=== PATIENT | female | born 1970 | race Caucasian/White ===

== ENCOUNTER 2023-09-28 20:42 | Outpatient (REF) | payer OTHER, SELFPAY ==
[2023-10-02 17:10] LABS: Age Gdln ACOG Testing Note (.); HPV Aptima Negative (Negative); IGP, Aptima HPV, rfx 16/18,45 Note (.)
== END 2023-09-28 20:43 | disposition home or self-care (01) ==
LOC: LAB 20:42
PROVIDERS: PCP Physician Assistant; Visit Provider Physician Assistant
DX: Z01.419 Encounter for gynecological examination (general) (routine) without abnormal findings (principal)
CPT/HCPCS: 88175

== ENCOUNTER 2023-10-01 14:28 | Outpatient (OUT) | payer OTHER, SELFPAY ==
--- NOTE | 2023-10-01 14:30 | MM_ITS ---
Patient Name: CHASITY STEVENSON MR#: [id number] : 1970 Exam Date: 10/01/2023 Ordering Doctor: KELVIN Berger . RADIOLOGY REPORT PROCEDURE: MM TOMOSYNTHESIS SCREENING BI COMPARISON: MG MAMM SCREEN JENNIFER W CAD, 04/13/2018. INDICATIONS: Screening Calculator Name NCI Breast Cancer Risk Assessment Tool 5 Year Breast Cancer Risk 1.20% Lifetime Breast Cancer Risk 9.60% Personal Breast Cancer No Personal Ovarian Cancer No Treatments None Family Cancers None LOCATION: [facility] BREAST COMPOSITION: There are scattered areas of fibroglandular density. FINDINGS: DIAGNOSTIC CATEGORY 0--INCOMPLETE: NEED ADDITIONAL IMAGING EVALUATION. RIGHT BREAST: 2 adjacent 5 mm slightly spiculated nodules within anterior lower-outer quadrant. Spot magnification views and ultrasound evaluation recommended. LEFT BREAST: No significant suspicious finding. Scattered benign-appearing calcifications are present. No significant change has occurred. RECOMMENDATIONS: ADDITIONAL MAMMOGRAPHIC VIEWS REQUIRED: RIGHT BREAST - RIGHT CRANIOCAUDAL SPOT MAGNIFICATION VIEW - RIGHT OBLIQUE SPOT MAGNIFICATION VIEW - ULTRASOUND: RIGHT BREAST PLEASE NOTE: A NORMAL MAMMOGRAM DOES NOT EXCLUDE THE POSSIBILITY OF BREAST CANCER. A CLINICALLY SUSPICIOUS PALPABLE LUMP SHOULD BE BIOPSIED. Dictated by: Jose Angel Saldana M.D. on 10/01/2023 at 16:15 Approved by: Jose Angel Saldana M.D. on 10/01/2023 at 16:19
--- OUTSIDE RECORDS SUMMARY | 2023-10-01 14:35 | XMS_ITS | CCD ---
Author Organization [facility] Care Team Providers Care Renal Dialysis Rn Name Role Phone Shaina Arellano Unavailable ANTONIO, DR REYNA Consulting Unavailable ANTONIO, DR REYNA Primary Care Unavailable MISC, DR PEREZ Attending Unavailable MISC, DR PEREZ Admitting Unavailable OROPEZAALEXANDRA ARCHER Consulting Unavailable ANTONIO, DR REYNA Primary Care Unavailable CYNTHIA, DR MO Hoffman Attending Unavailable PELLETIER, DR MO Hoffman Admitting Unavailable CYNTHIA, DR MO Hofmfan Consulting Unavailable ANTONIO, DR REYNA Primary Care Unavailable CYNTHIA, DR MO Hoffman Attending Unavailable CYNTHIA, DR MO Hoffman Admitting Unavailable OROPEZAALEXANDRA Consulting Unavailable PELLETIER, DR MO Hoffman Consulting Unavailable ANTONIO, DR REYNA Primary Care Unavailable PELLETIER, DR MO Hoffman Attending Unavailable PELLETIER, DR MO Hoffman Admitting Unavailable OROPEZAALEXANDRA Consulting Unavailable ANTONIO, DR REYNA Primary Care Unavailable CYNTHIA, DR MO Hoffman Attending Unavailable PELLETIER, DR MO Hoffman Admitting Unavailable OROPEZAALEXANDRA Consulting Unavailable ANTONIO, DR REYNA Primary Care Unavailable PELLETIER, DR MO Hoffman Attending Unavailable PELLETIER, DR MO Hoffman Admitting Unavailable ANTONIO, DR REYNA Primary Care Unavailable CYNTHIA, DR MO Hoffman Attending Unavailable PELLETIER, DR MO Hoffman Admitting Unavailable MISC, DR PEREZ Consulting Unavailable ANTONIO, DR REYNA Primary Care Unavailable MISC, DR PEREZ Attending Unavailable MISC, DR PEREZ Admitting Unavailable ANTONIO, DR REYNA Consulting Unavailable ANTONIO, DR REYNA Primary Care Unavailable ANTONIO, DR REYNA Attending Unavailable ANTONIO, DR REYNA Admitting Unavailable ZIEBER, DR PATTI Sheikh Consulting Unavailable MISC, DR PEREZ Consulting Unavailable ANTONIO, DR REYNA Primary Care Unavailable MISC, DR PEREZ Attending Unavailable MISC, DR PEREZ Admitting Unavailable MONET MULLINS Attending Unavailable LEO ORTEGA Attending Unavailable CHARLY FARIAS Referring Unavailable JARRETT, CHARLY Attending Unavailable SHENDGE, VITHAL Referring Unavailable ARIANNA ANDERSON Referring Unavailable SHENDGE, VITHAL Referring Unavailable SHENDGE, VITHAL Referring Unavailable MONET MULLINS Referring Unavailable SHENDGE, VITHAL Referring Unavailable SHENDGE, VITHAL Referring Unavailable SHENDGE, VITHAL Referring Unavailable SHENDGE, VITHAL Referring Unavailable MONET MULLINS Attending Unavailable SHENMANDYE, DEREKHAL Attending Unavailable SHENMANDYE, DEREKHAL Attending Unavailable SHENDGE, VITHAL Admitting Unavailable Lois Che Attending Unavailable MD Maribell Alvarez Primary Care Provider [phone] MD Moncho Chao Jr Emergency Provider MD Moncho Johnson Attending Provider Maribell Alvarez Primary Care Unavailable Moncho Chao Jr Admitting Unavailable Moncho Chao Jr Attending Unavailable Moncho Johnson Admitting Unavailable Moncho Johnson Attending Unavailable Maribell Alvarez Primary Care Unavailable MARIBELL ALVAREZ Attending Unavailable DAJA PENA Attending Unavailable Allergies Allergy Classification Reported Allergen(s) Allergy Type Date of Onset Reaction(s) Facility (1 source) ADHESIVE TAPE-SILICONES; Translations: [ADHESIVE TAPE-SILICONES] Propensity to adverse reactions to drug (disorder) 2 [facility] Medications Current Medications Medication Drug Class(es) Dates Sig (Normalized) Sig (Original) acetaminophen 500 mg oral tablet (4 sources) Start: 08-08-2020 take 500 mg by mouth every four hours Acetaminophen Active 500 MG PO Q4H 100 August 08, 2020 12:00am acetaminophen 325 mg / HYDROcodone bitartrate 5 mg oral tablet (20 sources) Opioid Agonist Start: 09-08-2023 take 1 tablet by mouth twice daily Hydrocodone-Acetami nophen Active 1 TAB PO Twice daily 10 September 08, 2023 ten Start: 08-31-2023 End: 08-31-2023 take 1 tablet by mouth twice daily Hydrocodone-Acetaminophen Discontinued 1 TAB PO Twice daily 10 August 31, 2023 August 31, 2023 1:12pm ten Start: 08-31-2023 End: 09-08-2023 take 1 tablet by mouth twice daily Hydrocodone-Acetaminophen Discontinued 1 TAB PO Twice daily 11 15August 31, 2023 September 08, 2023 11:35am ten Start: 08-31-2023 End: 09-08-2023 take 1 tablet by mouth twice daily Hydrocodone-Acetaminophen Discontinued 1 TAB PO Twice daily 10 7 August 31, 2023 September 08, 2023 11:35am ten Start: 08-27-2023 End: 09-08-2023 take 1 tablet by mouth every six hours Hydrocodone-Acetaminophen Discontinued 1 - 2 TAB PO Q6H 20 4 August 27, 2023 September 08, 2023 11:17am Start: 11-30-2020 take 1-2 tablets by mouth every four to six hours as needed for pain HYDROcodone-Acetaminophen 5-325 MG 1-2 tablet as needed for pain Orally every 4-6 hrs for 7 days Nov, Active Start: 08-03-2020 End: 08-27-2023 take 1 tablet by mouth every four hours Hydrocodone-Acetaminophen Discontinued 1 TAB PO Q4H 40 7 August 08, 2020 August 27, 2023 2:32am ascorbic acid 500 mg oral tablet (17 sources) Vitamin C Start: 08-03-2020 End: 08-09-2020 take 1 tablet by mouth once daily Ascorbic Acid (Vitamin C) (Vitamin C) 500 mg Tablet Active 500 MG PO Daily August 08, 2020 12:00am baclofen 10 mg oral tablet (3 sources) gamma-Aminobuty mally Acid-ergic Agonist Start: 08-31-2023 take 10 mg by mouth once daily Baclofen Active 10 MG PO Daily August 31, 2023 12:00am Calcium & Magnesium Carbonates (9 sources) Calcium & Magnesium Carbonates Active Calcium 600 + D 600-200 MG-UNIT (9 sources) Start: 09-05-2020 take 1 tablet by mouth three times daily Calcium 600 + D 600-200 MG-UNIT 1 tablet Orally TID for 30 day(s) Aug, Active Calcium Carbonate-Vitamin D3 (Oyster Shell Calcium-Vit D3) 500 mg(1,250mg) -200 unit Tablet (8 sources) Start: 08-08-2020 take 2 tablets by mouth once at mealtime Calcium Carbonate-Vitamin D3 (Oyster Shell Calcium-Vit D3) 500 mg(1,250mg) -200 unit Tablet Active 2 TAB PO 3x/Day with meals August 08, 2020 12:00am Start: 08-03-2020 End: 08-09-2020 take 1 tablet by mouth once at mealtime Calcium Carbonate-Vitamin D3 (Oyster Shell Calcium-Vit D3) 500 mg(1,250mg) -200 unit Tablet Discontinued 1 TAB PO 3x/Day with meals 0 August 03, 2020 12:00am August 09, 2020 10:01am docusate sodium 50 mg / sennosides, assisted 8.6 mg oral tablet (4 sources) Start: 08-27-2023 take 2 tablets by mouth once daily at bedtime Sennosides-Docusate Sodium (Senna Plus) 8.6-50 mg tablet Active 2 TAB PO Daily at bedtime August 27, 2023 12:00am ibuprofen 200 mg oral tablet (9 sources) Nonsteroidal Anti-inflammatory Drug take 1 tablet by mouth three times daily at mealtime as needed Advil 200 MG 1 tablet with food or milk as needed Orally Three times a day Active Multivital-M (9 sources) Multivital-M Ora lly Active Multivitamin preparation (3 sources) Start: 08-31-2023 take 1 tablet by mouth once daily Multivitamin Active 1 TAB PO Daily August 31, 2023 12:00am Turmeric extract (3 sources) Start: 08-31-2023 Turmeric Active MG PO August 31, 2023 12:00am Completed/Discontinued Medications Medication Drug Class(es) Dates Sig (Normalized) Sig (Original) cyclobenzaprine hydrochloride 5 mg oral tablet (12 sources) Muscle Relaxant Start: 08-03-2020 End: 08-31-2023 take 5 mg by mouth every eight hours Cyclobenzaprine Discontinued 5 MG PO Q8H 30 August 08, 2020 12:00am August 31, 2023 12:43pm Start: 01-17-2014 take 1 tablet by dylan th every eight hours Cyclobenzaprine HCl 10 MG 1 tablet Orally every 8 hours Jan, Active docusate sodium 100 mg oral capsule (8 sources) Start: 08-03-2020 End: 08-31-2023 take 1 capsule by mouth twice daily Docusate Sodium (Dok) 100 mg Capsule Discontinued 100 MG PO Twice daily August 08, 2020 12:00am August 31, 2023 12:43pm 0.3 ml enoxaparin sodium 100 mg/ml prefilled syringe (8 sources) Low Molecular Weight Heparin Start: 08-03-2020 End: 08-31-2023 Enoxaparin (Lovenox) 30 mg/0.3 mL Syringe Discontinued 30 MG SUBCUT Every 12 hours at 1000 & 2200 August 08, 2020 12:00am August 31, 2023 12:43pm ferrous sulfate 324 mg delayed release oral tablet (8 sources) Start: 08-03-2020 End: 08-31-2023 take 324 mg by mouth twice daily Ferrous Sulfate Discontinued 324 MG PO Twice daily August 08, 2020 12:00am August 31, 2023 12:43pm lidocaine 0.04 mg/mg medicated patch (8 sources) Antiarrhythmic, Amide Local Anesthetic Start: 08-03-2020 End: 08-31-2023 apply 1 dose topically once daily Lidocaine (Lidocaine Pain Relief) 4 % Adhesive Patch,Medicated Discontinued 1 PATCH TOPICAL Daily August 08, 2020 12:00am August 31, 2023 12:42pm melatonin 5 mg oral tablet (8 sources) Start: 08-03-2020 End: 08-31-2023 take 5 mg by mouth once daily at bedtime Melatonin Discontinued 5 MG PO Daily at bedtime August 08, 2020 12:00am August 31, 2023 12:42pm Sennosides (Senna Lax) 8.6 mg Tablet (8 sources) Start: 08-08-2020 End: 08-31-2023 take 2 tablets by mouth twice daily Sennosides (Senna Lax) 8.6 mg Tablet Discontinued 17.2 MG PO Twice daily August 08, 2020 12:00am August 31, 2023 12:44pm Start: 08-08-2020 take 2 tablets by mo [facility] twice daily Sennosides (Senna Lax) 8.6 mg Tablet Active 17.2 MG PO Twice daily August 08, 2020 12:00am Start: 08-03-2020 End: 08-09-2020 take 2 tablets by mouth twice daily Sennosides (Senna Lax) 8.6 mg Tablet Discontinued 2 TAB PO Twice daily August 03, 2020 12:00am August 09, 2020 10:01am Problems Active Problems Problem Classification Problem Date Documented Date Episodic/Chronic Acute posthemorrhagic anemia (8 sources) Anemia following acute postoperative blood loss; Translations: [Acute posthemorrhagic anemia] 01-21-2023 Episodic Administrative/social admission (4 sources) Other reduced mobility; Translations: [Impaired mobility and activities of daily living] 01-21-2023 Episodic E Codes: Fall (4 sources) Fall on same level from slipping, tripping or stumbling ; Translations: [Fall on same level from slipping, tripping and stumbling without subsequent striking against object, initial encounter] 08-27-2023 Episodic Fluid and electrolyte disorders (8 sources) Hyponatremia; Translations: [Hypo-osmolality and hyponatremia] 01-21-2023 Episodic Fracture of lower limb (20 sources) Closed fracture of femur, distal end; Translations: [Other fracture of lower end of right femur, subsequent encounter for closed fracture with delayed healing] Onset: 11-16-2020 Resolved: 11-30-2020 Episodic Osteoarthritis (9 sources) Unilateral primary osteoarthritis, left hip; Translations: [Polyosteoarthritis, unspecified] Onset: 10-29-2021 Chronic Other aftercare (2 sources) Encounter for other specified surgical aftercare; Translations: [Encounter for other specified surgical aftercare] Onset: 01-10-2022 Episodic Other connective tissue disease (2 sources) Presence of left artificial hip joint; Translations: [Presence of left artificial hip joint] Onset: 12-11-2021 Chronic Other connective tissue disease (4 sources) History of total knee arthroplasty; Translations: [Presence of unspecified artificial knee joint] 01-21-2023 Chronic Other connective tissue disease (4 sources) Pain in right foot; Translations: [PAIN IN RIGHT FOOT] Onset: 01-28-2022 Episodic Other connective tissue disease (4 sources) Pain in right lower limb; Translations: [Pain in right leg] 01-21-2023 Episodic Other connective tissue disease (3 sources) Tear of right rotator cuff; Translations: [Unspecified rotator cuff tear or rupture of right shoulder, not specified as traumatic] 08-31-2023 Episodic Other connective tissue disease (5 sources) Unspecified rotator cuff tear or rupture of right shoulder, not specified as traumatic; Translations: [Rotator cuff (capsule) sprain] 08-31-2023 Episodic Other injuries and conditions due to external causes (4 sources) History of fall; Translations: [History of falling] 01-21-2023 Episodic Other nervous system disorders (1 source) Chronic pain syndrome; Translations: [CHRONIC PAIN SYNDROME] Onset: 01-28-2022 Chronic Other nervous system disorders (2 sources) Other chronic pain; Translations: [Other chronic pain] Onset: 12-13-2021 Chronic Other nervous system disorders (4 sources) Postoperative pain ; Translations: [Other acute postprocedural pain] 01-21-2023 Episodic Other non-traumatic joint disorders (3 sources) Derangement of right shoulder joint; Translations: [Other specific joint derangements of right shoulder, not elsewhere classified] 08-31-2023 Chronic Other non-traumatic joint disorders (6 sources) Other specific joint derangements of right shoulder, not elsewhere classified; Translations: [Other specified disorders of joint, shoulder region] Onset: 09-08-2023 08-31-2023 Chronic Other non-traumatic joint disorders (4 sources) Pain in left hip; Translations: [PAIN IN LEFT HIP] Onset: 01-23-2022 Episodic Other non-traumatic joint disorders (1 source) Pain in left knee; Translations: [PAIN IN LEFT KNEE] Onset: 01-28-2022 Episodic Other non-traumatic joint disorders (5 sources) Pain in right shoulder; Translations: [Acute pain of right shoulder] Onset: 08-26-2023 08-27-2023 Episodic Other non-traumatic joint disorders (3 sources) Hip pain; Translations: [Pain in right hip] 08-31-2023 Episodic Other non-traumatic joint disorders (5 sources) Pain in right hip; Translations: [Pain in joint, pelvic region and thigh] 08-31-2023 Episodic Other nutritional; endocrine; and metabolic disorders (13 sources) Obesity; Translations: [Obesity, unspecified] 01-21-2023 Chronic Other nutritional; endocrine; and metabolic disorders (2 sources) Obesity, unspecified; Translations: [Obesity, unspecified classification, unspecified obesity type, unspecified whether serious comorbidity present E66.9] Onset: 11-16-2020 Resolved: 11-30-2020 Chronic Other screening for suspected conditions (not mental disorders or infectious disease) (4 sources) Protein level - finding; Translations: [Other specified abnormal findings of blood chemistry] 01-21-2023 Episodic Residual codes; unclassified (2 sources) Genetic susceptibility to other disease; Translations: [Genetic susceptibility to other disease] Onset: 01-14-2022 Episodic Residual codes; unclassified (4 sources) Patient encounter status; Translations: [Encounter for prophylactic measures, unspecified] 01-21-2023 Episodic Substance-related disorders (4 sources) Nicotine dependence; Translations: [Nicotine dependence, unspecified, uncomplicated] 01-21-2023 Chronic Superficial injury; contusion (12 sources) Contusion of right front wall of thorax, initial encounter; Translations: [Contusion of rib on right side] 08-27-2023 Episodic Unclassified (4 sources) CONTACT W/AND (SUSP) EXPOS COVID-19; Translations: [CONTACT W/AND (SUSP) EXPOS COVID-19] Onset: 11-06-2021 Unclassified (1 source) Low back pain, unspecified; Translations: [Low back pain, unspecified] Onset: 12-13-2021 Past or Other Problems Problem Classification Problem Date Documented Date Episodic/Chronic Abdominal pain (1 source) Unspecified abdominal pain; Translations: [UNSPECIFIED ABDOMINAL PAIN] Onset: 03-29-2021 Episodic Complication of device; implant or graft (2 sources) Other mechanical complication of other internal orthopedic devices, implants and grafts, initial encounter; Translations: [Failed orthopedic implant, initial encounter T84.498A] Onset: 11-16-2020 Resolved: 11-30-2020 Episodic Other connective tissue disease (1 source) Trochanteric bursitis, left hip; Translations: [TROCHANTERIC BURSITIS LEFT HIP] Onset: 07-04-2021 Episodic Other connective tissue disease (1 source) Pain in right leg; Translations: [PAIN IN RIGHT LEG] Onset: 03-29-2021 Episodic Other connective tissue disease (2 sources) Psoas tendinitis, left hip; Translations: [Psoas tendinitis, left hip] Onset: 12-11-2021 Episodic Other eye disorders (2 sources) Dry eye syndrome of bilateral lacrimal glands; Translations: [Dry eye syndrome of bilateral lacrimal glands] Onset: 12-13-2021 Episodic Other nervous system disorders (2 sources) Other acute postprocedural pain; Translations: [Other acute postprocedural pain] Onset: 11-27-2021 Episodic Other non-traumatic joint disorders (2 sources) Pain in unspecified hip; Translations: [Pain in unspecified hip] Onset: 12-06-2021 Episodic Residual codes; unclassified (2 sources) Tobacco use; Translations: [Nicotine abuse Z72.0] Onset: 11-16-2020 Resolved: 11-30-2020 Episodic Residual codes; unclassified (3 sources) Other specified postprocedural states; Translations: [Other specified postprocedural states Z98.890] Onset: 11-16-2020 Resolved: 11-30-2020 Episodic Residual codes; unclassified (2 sources) Encounter for prophylactic measures, unspecified; Translations: [Encounter for prophylactic measures, unspecified] Onset: 11-27-2021 Episodic Unclassified (1 source) CONTACT W/AND (SUSP) EXPOS COVID-19; Translations: [CONTACT W/AND (SUSP) EXPOS COVID-19] Onset: 11-04-2021 Unclassified (1 source) Low back pain, unspecified; Translations: [Low back pain, unspecified] Onset: 12-13-2021 Results Test Name Value Interpretation Reference Range Facility XR shoulder RT min 2V*on XR shoulder RT min 2V* [facility] [address] [place] [address] XRay Report Signed Patient: Keila Richardson MR#: [id number] 09 : 1970 Acct:[id number] Age/Sex: 53 / F ADM Date: 09/08/23 [place] [facility] [place] Type[place] [facility] Attending Dr: Moncho Johnson MD Copies to: Moncho Johnson MD Ordering Provider: Moncho Johnson MD Date of Service: 09/08/23 XR/XR shoulder RT min 2V*: M24.811 - Other specific joint derangements of right shou... 2 views right shoulder plain film HISTORY: Right shoulder pain. Worse with abduction. Fell. COMPARISON: None ACUTE FINDINGS: Suspected acute fracture of the proximal portion of the humeral neck. DEGENERATIVE CHANGE: Unremarkable SOFT TISSUE FINDINGS: Unremarkable JOINT EFFUSION: None POSTOP CHANGES: None BONY MINERALIZATION: Adequate XR/XR shoulder RT min 2V* IMPRESSION: Concern for fracture posterior portion of the humeral neck. Impression dictated by: Felix Petit M.D.09/08/2023 3:45 PM Dictation Location: [place] [address] Transcribed By: [facility] 09/08/23 1545 Dictated By: Felix Petit DO 09/08/23 1543 Signed By: 09/08/23 1545 Normal [facility] Activated partial thrombopla stin time (aPTT) in platelet poor plasma by coagulation aOrdered By: Moncho Chao on 08-27-2023 aPTT Coag (PPP) [Time] 31.1 s 25.1-36.5 [facility] Comment on above: A hematocrit value g reater than 55% may lead to inaccurate results in coagulation testing. Patients having hematocrit values >55% require a special collection tube for coagulation studies. Please contact the laboratory at [phone] for redraw instructions. Alanine aminotransferase [En zymatic activity/volume] in Serum or PlasmaOrdered By: Moncho Chao on 08-27-2023 ALT [Catalytic activity/Vol] 44 U/L Normal 7-52 [facility] Comment on above: Performed By: #### C BC, CMP, BNP, HS TROP, PT, PTT #### [facility] [address] [id number] [place] Albumin [Mass/volume] in Ser um or Plasma by Bromocresol green (BCG) dye binding methoOrdered By: Moncho Chao on 08-27-2023 Albumin BCG dye [Mass/Vol] 4.1 g/dL 3.5-5.7 [facility] Alkaline phosphatase [Enzyma tic activity/volume] in Serum or PlasmaOrdered By: Moncho Chao on 08-27-2023 ALP [Catalytic activity/Vol] 79 U/L Normal 34-104 [facility] Comment on above: Performed By: #### C BC, CMP, BNP, HS TROP, PT, PTT #### [facility] [address] [id number] [place] Aspartate aminotransferase [ Enzymatic activity/volume] in Serum or PlasmaOrdered By: Moncho Chao on 08-27-2023 AST [Catalytic activity/Vol] 57 U/L High 13-39 [facility] Comment on above: Performed By: #### C BC, CMP, BNP, HS TROP, PT, PTT #### [address] Automated basophil %Ordered By: Moncho Chao on 08-27-2023 Basophils/100 WBC (Bld) 0.5 % Normal . [facility] Comment on above: Performed By: #### C BC, CMP, BNP, HS TROP, PT, PTT #### [address] Automated basophil countOrde red By: Moncho Chao on 08-27-2023 Basophils (Bld) [#/Vol] 0.0 10*3/uL Normal 0.0-0.2 [facility] Comment on above: Result Comment: PERF ORMED BY: [place] [address] PATHOLOGIST LEATHER CRAFTSMAN ESTELITA CAZARES M.D. Performed By: #### C BC, CMP, BNP, HS TROP, PT, PTT #### [address] Automated blood monocyte cou ntOrdered By: Moncho Chao on 08-27-2023 Monocytes (Bld) [#/Vol] 0.2 10*3/uL Normal 0.0-0.8 [facility] Comment on above: Performed By: #### C BC, CMP, BNP, HS TROP, PT, PTT #### [address] Automated eosinophil %Ordere d By: Moncho Chao on 08-27-2023 Eosinophils/100 WBC (Bld) 0.1 % Normal . [facility] Comment on above: Performed By: #### C BC, CMP, BNP, HS TROP, PT, PTT #### [address] Automated eosinophil countOr dered By: Moncho Chao on 08-27-2023 Eosinophils (Bld) [#/Vol] 0.0 10*3/uL Normal 0.0-0.45 [facility] Comment on above: Performed By: #### C BC, CMP, BNP, HS TROP, PT, PTT #### [facility] [address] [place] [address] Automated monocyte %Ordered By: Moncho Chao on 08-27-2023 Monocytes/100 WBC (Bld) 1.8 % Normal . [facility] Comment on above: Performed By: #### C BC, CMP, BNP, HS TROP, PT, PTT #### [address] Automated neutrophil %Ordere d By: Moncho Chao on 08-27-2023 Neutrophils/100 WBC (Bld) 86.1 % Normal . [facility] Comment on above: Performed By: #### C BC, CMP, BNP, HS TROP, PT, PTT #### [address] BNP ser/plasOrdered By: Constantino Chao on 08-27-2023 Natriuretic peptide B (Bld) [Mass/Vol] 19.0 pg/mL Normal 5-100 [facility] Comment on above: Result Comment: PERF ORMED BY: [place] [address] PATHOLOGIST LEATHER CRAFTSMAN ESTELITA CAZARES M.D. Performed By: #### C BC, CMP, BNP, HS TROP, PT, PTT #### [address] Bilirubin.total [Mass/volume ] in Serum or PlasmaOrdered By: Moncho Chao on 08-27-2023 Bilirubin [Mass/Vol] 0.6 mg/dL Normal 0.3-1.0 [facility] Comment on above: Performed By: #### C BC, CMP, BNP, HS TROP, PT, PTT #### [address] chest wo monik 08-27-2023 CT chest wo [facility] [place] [address] CT Scan Report Signed Patient: Keila Richardson MR#: [id number] 09 : 1970 Acct:[id number] Age/Sex: 53 / F ADM Date: 08/26/23 Loc: ER Room: Type: [facility] ER Attending Dr: Copies to: Moncho Chao Jr, MD Ordering Provider: Moncho Chao Jr, MD Date of Service: 08/26/23 CT/CT cervical spine wo con: fall, neck pain ([id number]) CT/CT chest wo con: fall, R rib pain, unable to lift arm CT Cervical Spine withoutcontrast TECHNIQUE: Axial imaging with 2-D and 3-D reconstruction. The CT exam was performed using one or more the following dose reduction techniques: Automated exposure control, adjustment of the MA and/or Kv according to patient size, or use of the iterative reconstruction technique. COMPARISON: None HISTORY: Fell. Right shoulder and arm pain. Right thigh pain. Neck pain. POST SURGERY CHANGES: None BONY ALIGNMENT: Adequate BONY SPINAL CANAL: Patent central bony canal FRACTURE: None BONY LESIONS: None SOFT TISSUES: Unremarkable DEGENERATIVE CHANGES: Moderate to degeneration LUNG APICES: Unremarkable ADDITIONAL FINDINGS: CT/CT cervical spine wo con IMPRESSION: No acute process CT Chest without contrast TECHNIQUE: Axial imaging with 2-D reconstruction. The CT exam was performed using one or more the following dose reduction techniques: Automated exposure control, adjustment of the MA and/or Kv according to patient size, or use of the iterative reconstruction technique. History: As above COMPARISON: None THYROID: Unremarkable TRACHEA AND BRONCHI: Patent ESOPHAGUS: Small hiatal hernia HEART: Within normal limits PERICARDIAL EFFUSION: None CORONARY ARTERY CALCIFICATION: None MEDIASTINUM: No adenopathy. No pneumoperitoneum. No mediastinal hematoma. PULMONARY SHELBY: No hilar mass or adenopathy is seen. THORACIC AORTA Unremarkable LUNG NODULE None LUNGS: Lungs are clear PLEURAL EFFUSION: None PNEUMOTHORAX: No pneumothorax seen. CHEST WALL: No abnormality AXILLA:Unremarkable BONY STRUCTURES Intact UPPER ABDOMEN: Images of the upper abdomen are noncontributory. IMPRESSION: No acute findings Impression dictated by: Felix Petit M.D.08/27/2023 7:31 AM Dictation Location: [place] [address] Transcribed By: [facility] 08/27/23730 Dictated By: Felix Petit DO 08/27/23723 Signed By: 08/27/23730 Normal [facility] Calcium [Mass/volume] in Ser um or PlasmaOrdered By: Moncho Chao on 08-27-2023 Calcium [Mass/Vol] 9.6 mg/dL Normal 8.6-10.3 [facility] Comment on above: Performed By: #### C BC, CMP, BNP, HS TROP, PT, PTT #### [address] Carbon dioxide, total [Moles /volume] in Serum or PlasmaOrdered By: Moncho Chao on 08-27-2023 CO2 [Moles/Vol] 25.4 mmol/L Normal 21.0-31.0 [facility] Comment on above: Performed By: #### C BC, CMP, BNP, HS TROP, PT, PTT #### [address] Chloride [Moles/volume] in S main or PlasmaOrdered By: Moncho Chao on 08-27-2023 Chloride [Moles/Vol] 105 mmol/L Normal 98-107 [facility] Comment on above: Performed By: #### C BC, CMP, BNP, HS TROP, PT, PTT #### [address] Complete Blood Count Auto Di ffon 08-27-2023 Mean Corpuscular HGB Conc 33.9 g/dL Normal 32.0-35.0 [facility] Comment on above: Performed By: #### C BC, CMP, BNP, HS TROP, PT, PTT #### [address] Monocytes/100 WBC (Bld) 21.29 % High 0.00-20.00 [facility] Comment on above: Result Comment: For adults in ED, MDW > 20.0 may be associated with a higher risk of sepsis during the first 12 hrs of hospital admission Performed By: #### C BC, CMP, BNP, HS TROP, PT, PTT #### [address] NRBC% 0.0 /100{WBC} Normal 0-0.5 [facility] Comment on above: Performed By: #### C BC, CMP, BNP, HS TROP, PT, PTT #### [facility] [address] Comprehensive Metabolic Pane tripp 08-27-2023 Albumin [Mass/Vol] 4.1 g/dL Normal 3.5-5.7 [facility] Comment on above: Performed By: #### C BC, CMP, BNP, HS TROP, PT, PTT #### [address] Creatinine Clr Calc Pharmacy 126.85 Normal [facility] Comment on above: Result Comment: PERF ORMED BY: [place] [address] PATHOLOGIST LEATHER CRAFTSMAN ESTELITA CAZARES M.D. Performed By: #### C BC, CMP, BNP, HS TROP, PT, PTT #### [address] GFR/1.73 sq M.predicted MDRD (S/P/Bld) [Vol rate/Area] mL/min/{1.73_m2} Normal [facility] Comment on above: Performed By: #### C BC, CMP, BNP, HS TROP, PT, PTT #### [address] Creatinine [Mass/volume] in Serum or PlasmaOrdered By: Moncho Chao on 08-27-2023 Creatinine [Mass/Vol] 0.76 mg/dL Normal 0.60-1.20 [facility] Comment on above: Performed By: #### C BC, CMP, BNP, HS TROP, PT, PTT #### [address] Erythrocyte distribution wid th [Ratio] by Automated countOrdered By: Moncho Chao on 08-27-2023 Erythrocyte distribution width (RBC) [Ratio] 13.5 % Normal 11.9-15.3 [facility] Comment on above: Performed By: #### C BC, CMP, BNP, HS TROP, PT, PTT #### [address] Erythrocytes [#/volume] in B lood by Automated countOrdered By: Moncho Chao on 08-27-2023 RBC (Bld) [#/Vol] 4.75 10*6/uL Normal 3.60-5.00 [facility] Comment on above: Performed By: #### C BC, CMP, BNP, HS TROP, PT, PTT #### [facility] [address] Glucose [Mass/volume] in Ser um or PlasmaOrdered By: Moncho Chao on 08-27-2023 Glucose [Mass/Vol] 141 mg/dL High 70-100 [facility] Comment on above: ADA recommended refe rence rangeRandom Glucose Reference Range is dependent on time and content of last meal. Glucose of more than 200 mg/dL in a nonstressed, ambulatory subject supports the diagnosis of Diabetes Mellitus. Result Comment: [place] om Glucose Reference Range is dependent on time and content of last meal. Glucose of more than 200 mg/dL in a nonstressed, ambulatory subject supports the diagnosis of Diabetes Mellitus. ADA recommended reference range Performed By: #### C BC, CMP, BNP, HS TROP, PT, PTT #### [address] Hematocrit [Volume Fraction] of Blood by Automated countOrdered By: Moncho Chao on 08-27-2023 Hematocrit (Bld) [Volume fraction] 42.8 % Normal 34.0-46.4 [facility] Comment on above: Performed By: #### C BC, CMP, BNP, HS TROP, PT, PTT #### [address] Hemoglobin [Mass/volume] in BloodOrdered By: Moncho Chao on 08-27-2023 Hemoglobin (Bld) [Mass/Vol] 14.5 g/dL Normal 11.8-15.4 [facility] Comment on above: Performed By: #### C BC, CMP, BNP, HS TROP, PT, PTT #### [place] [address] [place] INR in Platelet poor plasma by Coagulation assayOrdered By: Moncho Chao on 08-27-2023 INR Coag (PPP) [Relative time] 1.0 {INR} Normal [facility] Comment on above: INR Therapeutic Rang e A) Pre- and Peroperative OAT started two weeks before surgery. NOT HIP SURGERY: 1.5 - 2.5 HIP SURGERY: 2 - 3B) Primary and secondary prevention of venous THROMBOSIS: 2 - 3C) Active venous thrombosis, pulmonary embolismand prevention of recurrent venous thrombosis: 2 - 3D) Prevention of arterial thromboembolismincluding patients with mechanical heart valves: 3 - 4.5 Result Comment: INR Therapeutic Range A) Pre- and Peroperative OAT started two weeks before surgery. NOT HIP SURGERY: 1.5 - 2.5 HIP SURGERY: 2 - 3 B) Primary and secondary prevention of venous THROMBOSIS: 2 - 3 C) Active venous thrombosis, pulmonary embolism and prevention of recurrent venous thrombosis: 2 - 3 D) Prevention of arterial thromboembolism including patients with mechanical heart valves: 3 - 4.5 Performed By: #### C BC, CMP, BNP, HS TROP, PT, PTT #### [address] Leukocytes [#/volume] correc alden for nucleated erythrocytes in Blood by Automated counOrdered By: Moncho Chao on 08-27-2023 WBC corrected for nucl RBC Auto (Bld) [#/Vol] 9.0 10*3/uL 3.8-11.6 [facility] Leukocytes [#/volume] in Blo od by Automated countOrdered By: Moncho Chao on 08-27-2023 WBC (Bld) [#/Vol] 9.0 10*3/uL Normal 3.8-11.6 [facility] Comment on above: Performed By: #### C BC, CMP, BNP, HS TROP, PT, PTT #### [place] [address] [place] Lymphocytes [#/volume] in Bl ood by Automated countOrdered By: Moncho Chao on 08-27-2023 Lymphocytes (Bld) [#/Vol] 1.0 10*3/uL Normal 1.00-4.8 [facility] Comment on above: Performed By: #### C BC, CMP, BNP, HS TROP, PT, PTT #### [place] [address] [place] Lymphocytes/100 leukocytes i n Blood by Automated countOrdered By: Moncho Chao on 08-27-2023 Lymphocytes/100 WBC (Bld) 11.5 % Normal . [facility] Comment on above: Performed By: #### C BC, CMP, BNP, HS TROP, PT, PTT #### [facility] [address] MCH [Entitic mass] by Automa alden countOrdered By: Moncho Chao on 08-27-2023 MCH (RBC) [Entitic mass] 30.6 pg Normal 24.7-34.3 [facility] Comment on above: Performed By: #### C BC, CMP, BNP, HS TROP, PT, PTT #### [address] MCHC Auto (RBC) [Mass/Vol]Or dered By: Moncho Chao on 08-27-2023 MCHC (RBC) [Mass/Vol] 33.9 g/dL 32.0-35.0 [facility] MCV [Entitic volume] by Auto mated countOrdered By: Moncho Chao on 08-27-2023 MCV (RBC) [Entitic vol] 90.2 fL Normal 80-100 [facility] Comment on above: Performed By: #### C BC, CMP, BNP, HS TROP, PT, PTT #### [address] Monocyte distribution width [Entitic volume] in Blood by AutomatedOrdered By: Moncho Chao on 08-27-2023 Monocyte distribution width Auto (Bld) [Entitic vol] 21.29 % High 0.00-20.00 [facility] Comment on above: For adults in ED, MD W > 20.0 may be associated with a higher risk of sepsis during the first 12 hrs of hospital admission Neutrophils [#/volume] in Bl ood by Automated countOrdered By: Moncho Chao on 08-27-2023 Neutrophils (Bld) [#/Vol] 7.7 10*3/uL Normal 1.8-7.7 [facility] Comment on above: Performed By: #### C BC, CMP, BNP, HS TROP, PT, PTT #### [address] No Panel InformationOrdered By: Moncho Chao on 08-27-2023 Estimated GFR (CKD-EPI) > 60.0 mL/Min [facility] Creatinine Clearance (Chem 126.85 [facility] Nucleated erythrocytes [Pres ence] in Blood by Automated countOrdered By: Moncho Chao on 08-27-2023 Nucleated RBC Auto Ql (Bld) 0.0 /100{WBC} 0-0.5 [facility] Partial Thromboplastin Timeo n 08-27-2023 aPTT Coag (Bld) [Time] 31.1 s Normal 25.1-36.5 [facility] Comment on above: Result Comment: A he matocrit value greater than 55% may lead to inaccurate results in coagulation testing. Patients having hematocrit values >55% require a special collection tube for coagulation studies. Please contact the laboratory at [phone] for redraw instructions. PERFORMED BY: [place] [address] PATHOLOGIST LEATHER CRAFTSMAN ESTELITA CAZARES M.D. Performed By: #### C BC, CMP, BNP, HS TROP, PT, PTT #### [address] Platelet mean volume [Entiti c volume] in Blood by Automated countOrdered By: Moncho Chao on 08-27-2023 Platelet mean volume (Bld) [Entitic vol] 7.3 fL Normal 6.3-10.7 [facility] Comment on above: Performed By: #### C BC, CMP, BNP, HS TROP, PT, PTT #### [facility] [address] [place] [address] [place] Platelets [#/volume] in Bloo d by Automated countOrdered By: Moncho Chao on 08-27-2023 Platelets (Bld) [#/Vol] 382 10*3/uL Normal 150-450 [facility] Comment on above: Performed By: #### C BC, CMP, BNP, HS TROP, PT, PTT #### [place] [address] [place] Potassium [Moles/volume] in Serum or PlasmaOrdered By: Moncho Chao on 08-27-2023 Potassium [Moles/Vol] 3.8 mmol/L Normal 3.5-5.1 [facility] Comment on above: Performed By: #### C BC, CMP, BNP, HS TROP, PT, PTT #### [address] Protein [Mass/volume] in Ser um or PlasmaOrdered By: Moncho Chao on 08-27-2023 Protein [Mass/Vol] 7.7 g/dL Normal 6.4-8.9 [facility] Comment on above: Performed By: #### C BC, CMP, BNP, HS TROP, PT, PTT #### [address] Prothrombin time (PT)Ordered By: Moncho Chao on 08-27-2023 PT Coag (PPP) [Time] 11.6 s Normal 9.0-12.9 [facility] Comment on above: A hematocrit value g reater than 55% may lead to inaccurate results in coagulation testing. Patients having hematocrit values >55% require a special collection tube for coagulation studies. Please contact the laboratory at [phone] for redraw instructions. Result Comment: A he matocrit value greater than 55% may lead to inaccurate results in coagulation testing. Patients having hematocrit values >55% require a special collection tube for coagulation studies. Please contact the laboratory at [phone] for redraw instructions. Performed By: #### C BC, CMP, BNP, HS TROP, PT, PTT #### [address] Serum globulin measurement b y calculation (mass/volume)Ordered By: Moncho Chao on 08-27-2023 Globulin (S) [Mass/Vol] 3.6 g/dL [facility] Comment on above: Performed By: #### C BC, CMP, BNP, HS TROP, PT, PTT #### [address] Serum or plasma albumin/glob ulin mass ratioOrdered By: Moncho Chao on 08-27-2023 Albumin/Globulin [Mass ratio] 1.1 {ratio} [facility] Comment on above: Performed By: #### C BC, CMP, BNP, HS TROP, PT, PTT #### [facility] [address] Serum or plasma anion gap de terminationOrdered By: Moncho Chao on 08-27-2023 Anion gap [Moles/Vol] 11.4 mmol/L Normal 6.0-15.0 [facility] Comment on above: Performed By: #### C BC, CMP, BNP, HS TROP, PT, PTT #### [facility] [address] Sodium [Moles/volume] in Ser um or PlasmaOrdered By: Moncho Chao on 08-27-2023 Sodium [Moles/Vol] 138 mmol/L Normal 136-145 [facility] Comment on above: Performed By: #### C BC, CMP, BNP, HS TROP, PT, PTT #### [address] Troponin I High Sensitivityo n 08-27-2023 Troponin I High Sensitivity 3.5 pg/mL Normal 0.0-15.0 [facility] Comment on above: Result Comment: PERF ORMED BY: [place] [address] PATHOLOGIST LEATHER CRAFTSMAN ESTELITA CAZARES M.D. Performed By: #### C BC, CMP, BNP, HS TROP, PT, PTT #### [address] Troponin I.cardiac [Mass/vol ume] in Serum or Plasma by Detection limit <= 0.01 ng/Ordered By: Moncho Chao on 08-27-2023 Troponin I.cardiac DL <= 0.01 ng/mL [Mass/Vol] 3.5 pg/mL 0.0-15.0 [facility] Urea nitrogen [Mass/volume] in Serum or PlasmaOrdered By: Moncho Chao on 08-27-2023 Urea nitrogen [Mass/Vol] 15 mg/dL Normal 7-25 [facility] Comment on above: Performed By: #### C BC, CMP, BNP, HS TROP, PT, PTT #### [address] [place] [address] [facility] XR femur RT 2V*on 08-27-2023 XR femur RT 2V* [facility] Main [address] [address] XRay Report Signed Patient: Keila Richardson MR#: [id number] 09 : 1970 Acct:[id number] Age/Sex: 53 / F ADM Date: 08/26/23 Loc: ER Room: Type: [facility] ER Attending Dr: Copies to: Moncho Chao Jr, MD Ordering Provider: Moncho Chao Jr, MD Date of Service: 08/26/23 XR/XR femur RT 2V*: Fall ([id number]) XR/XR humerus RT*: Fall ([id number]) XR/XR shoulder RT min 2V*: Fall ([id number]) XR/XR pelvis 1-2V: Fall 3 views right shoulder plain film HISTORY: Fell injuring right side. Right shoulder pain. Right arm pain. Right thigh pain. COMPARISON: None ACUTE FINDINGS: None DEGENERATIVE CHANGE: Mild SOFT TISSUE FINDINGS: Unremarkable JOINT EFFUSION: None POSTOP CHANGES: None BONY MINERALIZATION: Adequate XR/XR shoulder RT min 2V* IMPRESSION: No acute findings. Plain film right humerus Adequate bony alignment. No fracture. IMPRESSION: No acute findings. Single view pelvis Unremarkable partially visualized right hip fixation hardware. Unremarkable partially visualized left hip arthroplasty. No bony fracture. Adequate alignment. IMPRESSION: No acute findings. 2 views right femur Intact fixation hardware. The right knee arthroplasty unremarkable. Adequate bony alignment. No acute bony fracture. IMPRESSION: No acute bony fracture. Impression dictated by: Felix Petit M.D.08/27/2023 7:35 AM Dictation Location: [place] [address] Transcribed By: [facility] 08/27/23 0735 Dictated By: Felix Petit DO 08/27/23 0731 Signed By: 08/27/23 0735 Normal [facility] ECG 12 lead ECGon 08-26-2023 ECG 12 lead ECG [facility] Main [address] [address] Electrocardiograph Report Signed Patient: Keila Richardson MR#: [id number] 09 : 1970 Acct:[id number] Age/Sex: 53 / F ADM Date: 08/26/23 Loc: ER Room: Type: [facility] ER Attending Dr: Ordering Provider: Moncho Chao Jr, MD Date of Service: 08/26/23 ECG/ECG 12 lead ECG: Fall Copies to: Test Reason : Blood Pressure : */* mmHG Vent. Rate : 80 BPM Atrial Rate : 80 BPM P-R Int : 146 ms QRS Dur : 78 ms QT Int : 398 ms P-R-T Axes : 76 54 37 degrees QTcB Int : 459 ms Normal sinus rhythm Low voltage QRS Borderline ECG When compared with ECG of 28-Jul-2020 02:26, No significant change was found Confirmed by CHET ESPARZA MD ([id number]) on 08/29/2023 1:27:04 PM Referred By: Electronically Signed By: CHET ESPARZA MD Transcribed By: MUS Signed By Chet Esparza MD 0 08/29/23 1327 Normal [facility] Follow-Upon 03-14-2022 Follow-Up [id number] Sanjana iRchardson 1970 F Date Provider Department Center 03/14/2022 LEO MARSHALL [facility] OR[facility] MPORTHO No family history on file Level of Service:48615 HI OFFICE/OUTPATIENT ESTABLISHED LOW MDM 20-29 MIN (GC) Reason for Visit and Comments: Follow-up [577012] Normal [facility] Telemedicineon 01-14-2022 Telemedicine [id number] Sanjana Richardson 1970 F Date Provider Department Center [facility] He[facility] No family history on file Level of Service:91572 HI PHYS/QHP TELEPHONE EVALUATION 5-10 MIN Reason for Visit and Comments: Follow-up [630170] Normal [facility] Office Visiton 01-10-2022 Follow-up visit [id number] Sanjana Richardson 1970 F Date Provider Department Center 01/10/2022 Bhavik-CHARLY FARIAS MP ORTHO MPORTHO No family history on file Level of Service:31612 HI OFFICE/OUTPATIENT ESTABLISHED LOW MDM 20-29 MIN (GC) Reason for Visit and Comments: Pain [136] - Patient has had increased pain in right leg where her femur was repaired since her Left hip replacement 6 weeks ago. Normal [facility] 37on 12-13-2021 37 Please call the [facility] ic with any emergent concerns at [phone] ([facility] location) [employer] messages may take up to 3 business days for a response so please utilize telephone calls for more urgent concerns. Thank you #Joint hypermobility syndrome Joint hypermobility syndrome is when you have very flexible joints and it causes you pain (you may think of yourself as being double-jointed). It usually affects children and young people and often gets better as you get older. Non-urgent advice: See a PCP/family doctor if you: -Often get tired, even after rest -Keep getting pain and stiffness in your joints or muscles -Keep getting sprains and strains -Keep dislocating your joints (they pop out ) -Have poor balance or coordination -Have thin, stretchy skin -Have bladder or bowel problems These can be symptoms of joint hypermobility syndrome. What happens at your provider appointment: Your provider will usually test the flexibility of your joints using the [place] score. They may also refer you for a blood test or X-ray to help rule out any other conditions like arthritis. Testing hypermobility = [place] score Treating joint hypermobility syndrome: There's no cure for joint hypermobility syndrome. The main treatment is improving muscle strength and fitness so your joints are better protected. A GP may refer you to a physical therapist, occupational therapist or other specialist advice. Therapies can help to: -Reduce pain and the risk of dislocations -Improve muscle strength and fitness -Improve your posture and balance Treating joint pain -Acetaminophen and anti-inflammatory painkillers (like ibuprofen, which comes as tablets, gels and sprays) may help to ease pain. Please speak to your provider or pharmacist about the best option for you. If you're in severe pain, your provider may be able to refer you to a pain clinic to help you cope with pain. To help ease joint pain and stiffness, you can: -Have warm baths -Use hot water bottles -Use heat-rub cream If you have joint hypermobility syndrome, there are things you can do to improve joint and muscle strength and reduce strain. Do: -Start with low-impact exercise like swimming or cycling if you've not been active before (not doing any exercise can make your symptoms worse) -Maintain a healthy weight -Wear supportive shoes -Wear special insoles (orthotics) in your shoes if a hand filer balance wheel/specialist/occ upational therapist has recommended them Don???t: -Do not overextend your joints just because you can -Do not do repetitive exercises or activities - take regular breaks (called pacing) What causes joint hypermobility syndrome - Joint hypermobility syndrome can run in families and it cannot be prevented. - Usually, the joints are loose and stretchy because the ligaments that should make them stronger and support them are weak. - The weakness is because the collagen that strengthens the ligaments is different from other people's. Most experts agree that joint hypermobility syndrome is part of a spectrum of hypermobility disorders which includes Jen-Danlos syndrome. Some people with hypermobility spectrum disorders do not have symptoms. Another [facility] website to review is: [email or web address] ndrom e Normal [facility] Office Visiton 12-13-2021 Follow-up visit [id number] Sanjana Richardson 1970 F Date Provider Department Center 12/13/2021 MON[facility] ERA[facility] Carlos Heal No family history on file Level of Service:36144 HI OFFICE/OUTPATIENT NEW LOW [facility] 30-44 MINUTES Reason for Visit and Comments: New Patient [632] - Referral is in [place]. Patient request to be scheduled in December after recovery from her hip surgery in October. Normal [facility] SJOGRENS SYNDROME ANTIBODIES A AND Bon 12-13-2021 KIRSTIN TO SSA (RO) ANTIBODY Negative Normal Negative [facility] Comment on above: Performed By: #### L AB344 ####[facility] (BEAKER)[address] [place] [address] KIRSTIN TO SSB ([place]) ANTIBODY Negative Normal Negative [facility] Comment on above: Performed By: #### L AB344 ####[facility] (RAMIREZ)[address] [place] [address] Office Visiton 12-11-2021 Follow-up visit [id number] Sanjana Richardson 1970 F Date Provider Department Center 12/11/2021 Linnea-LEO ORTEGA MP ORTHO MPORTHO No family history on file Level of Service:31191 HI POSTOP FOLLOW UP VISIT RELATED TO ORIGINAL PX Reason for Visit and Comments: Post-op [483] - 1st PO [facility] 36on 12-09-2021 36 Per Doctor Giovanny Dunham; patient was told to go to ER. [facility] CONSULTon 12-07-2021 CONSULT Reason For Consult hip pain History Of Present Illness Keila Richardson is a 51 y.o. female Presenting to the emergency room with concerns of left hip and left knee pain. Patient had a recent MILES done by Dr. Ortega On 11/27/2021. Patient states that she started having left hip pain for the last day or 2 and endorsed worsening swelling to her thigh region. Patient states that her pain is in her groin. Patient states that today she is going to stand up from a chair and felt a pulling popping sensation in her groin region. Patient states that she had increased pain at that time. Patient has been able to ambulate with a walker but states it is more painful now. Patient endorses 10 out of 10 pain with range of motion of her left hip. Additional patient endorses left knee pain. Patient states that her left knee pain has been going on for quite some time even prior to her surgery. Patient has a history of left TKA in 2012 by an outside physician. Patient states that her pain in her knee is anteriorly as well. She is unable to specifically localize it. Patient states she has been receiving home health physical therapy and when she ranges her knee throughout range of motion she has pain overlying her patella and inferiorly. She states compression over these areas lessens the pain. Patient does not endorse any events of gross instability of her knee. She says it previous in the past it feels like her knee may have given out on her however she has not suffered any falls. Patient denies any fevers, chills, Shortness of breath. Patient denies any calf pain. Patient states that she has a history of sciatic-like pain prior to her hip surgery that she feels may be getting worse in nature intermittently on and off. She describes it as a sharp pain rating from her back around her buttocks and down the posterior aspect of her leg to her foot. Past Medical History She has a past medical history of Fractures, Osteoarthritis, and Seasonal allergies. Surgical History She has a past surgical history that includes Hysterectomy; Femur fracture surgery (Left); Knee Arthroplasty (Bilateral); Knee arthroscopy w/ debridement (Bilateral); Partial hysterectomy; and CT chest angiogram w and/or wo IV contrast (11/28/2021). Family History No family history on file. Social History She reports that she quit smoking about 21 months ago. Her smoking use included cigarettes. She has never used smokeless tobacco. She reports current alcohol use. She reports that she does not use drugs. Allergies Adhesive tape-silicones Medications (Not in a hospital admission) No current facility-administered medications for this encounter. Review of Systems As above in HPI Last Recorded Vitals Patient Vitals for the past 24 hrs: BP Temp Temp src Pulse Resp SpO2 Height Weight 12/06/21 2200 118/68 -- -- -- -- 98 % -- -- 12/06/21 2145 (!) 144/95 -- -- 103 18 98 % -- -- 12/06/21 1851 151/80 37.1 ???C (98.7 ???F) Oral (!) 117 20 99 % 1.803 m (5' 11 ) 125 kg (275 lb) Physical Exam Left hip: -3-5 strength in left hip flexor, 4-5 strength in knee extension, 5 out of 5 strength in knee flexion, ankle dorsiflexion, ankle plantarflexion -Patient's has mild tenderness to palpation to left groin -Worsening pain with passive and active hip flexion -Patient left thigh appears to be increasingly more swollen compared to contralateral side -Patient's thigh and calf are soft and compressible -Skin is without any erythema Left knee: -Patient has mild tenderness to palpation over anterior aspect of patella inferiorly -Patient's knee range of motion is 0 to 110 degrees -Stable to varus and valgus stressing -No crepitus noted throughout knee range of motion -Patella appears to be tracking appropriately -Anterior knee incision appears to be well-healed without any evidence of dehiscence or redness, or obvious effusion -No pain with calf squeezing Sensation intact to saphenous/sural/tibial/DP /SP nerve distributions -Extremities warm well perfused Relevant Results No visits with results within 1 Day(s) from this visit. Latest known visit with results is: Admission on 11/27/2021, Discharged on 11/29/2021 Component Date Value Ref Range Status MSSA DNA 11/27/2021 Negative Negative, Invalid Final MRSA DNA 11/27/2021 Negative Negative, Invalid Final ABO Grouping 11/27/2021 O Final Rh Type 11/27/2021 POS Final Ab Scrn 11/27/2021 NEG Final Glucose POC 11/27/2021 96 70 - 105 mg/dL Final ltolles Auto WBC 11/27/2021 14.15 (A) 4.00 - 10.60 10*3/uL Final RBC 11/27/2021 4.59 3.80 - 5.00 10*6/uL Final Hemoglobin 11/27/2021 13.6 12.0 - 15.0 g/dL Final Hematocrit 11/27/2021 41.5 36.0 - 48.0 % Final MCV 11/27/2021 90.4 82.0 - 98.0 fL Final MCH 11/27/2021 29.6 27.0 - 33.0 pg Final MCHC 11/27/2021 32.8 32.0 - 35.0 g/dL Final RDW 11/27/2021 13.2 11.5 - 15.0 % Final Platelets 11/27/2021 386 150 - 400 10*3/uL Final So (more content not included)... [facility] 36on 12-06-2021 36 Patient called in an d stated during her home exercises she heard a pop and she is concerned that something pop out of place and it was in her bubba area. [facility] EDNURSon 12-06-2021 EDNURS 1 week post of total hip. C/o imcreased pain to hip radiating to groin. Normal [facility] EDPROVon 12-06-2021 EDPROV [facility] [address] [facility] [id number] EMERGENCY DEPARTMENT ENCOUNTER CHIEF COMPLAINT No chief complaint on file. HISTORY OF PRESENT ILLNESS 51-year-old female with past medical history of obesity brought to the emergency department by her for left hip worsening pain. Patient had a total hip replacement done by Dr. Ortega in the [facility] Ortho clinic a week ago Thursday. She states that last night she was getting up to stand and felt a pulling like pain in her left hip but she did not fall. Then later on today she was sitting in her recliner doing some exercises to stretch her left leg and felt a sudden pop pop in her left hip. She feels that there is some increased pain now in her hip with ambulation however she is still able to ambulate using her walker. She also believes that her left leg is more edematous today than it has been since surgery. She denies any fever chills or flulike symptoms. She denies any history of DVT or blood clots. She is taking a baby aspirin twice a day and her follow-up with Ortho clinic is next Thursday. She contacted the Ortho clinic today due to her symptoms and states she was told to come to the ER for evaluation. REVIEW OF SYSTEMS Review of Systems Constitutional: Negative other than stated in HPI, ten systems reviewed. All other systems reviewed and are negative. PAST MEDICAL HISTORY has a past medical history of Fractures, Osteoarthritis, and Seasonal allergies. SURGICAL HISTORY has a past surgical history that includes Hysterectomy; Femur fracture surgery (Left); Knee Arthroplasty (Bilateral); Knee arthroscopy w/ debridement (Bilateral); Partial hysterectomy; and CT chest angiogram w and/or wo IV contrast (11/28/2021). CURRENT MEDICATIONS Previous Medications ACETAMINOPHEN (TYLENOL) 500 MG TABLET Take 1 tablet (500 mg) by mouth in the morning, at noon, and at bedtime for 7 days. ASPIRIN 325 MG EC TABLET Take 1 tablet (325 mg) by mouth in the morning and at bedtime. BACLOFEN (LIORESAL) 10 MG TABLET Take 1 tablet by mouth at bedtime. CEPHALEXIN (KEFLEX) 500 MG CAPSULE Take 1 capsule (500 mg) by mouth every 6 (six) hours for 7 days. CETIRIZINE (ZYRTEC) 10 MG TABLET Take 10 mg by mouth at bedtime. DOCUSATE SODIUM (COLACE) 100 MG CAPSULE Take 1 capsule (100 mg) by mouth in the morning and at bedtime for 7 days. HYDROCODONE-ACETAMINOPHEN (NORCO) 5-325 MG TABLET Take 2 tablets by mouth in the morning and at bedtime. OXYCODONE (ROXICODONE) 5 MG IMMEDIATE RELEASE TABLET Take 1 tablet (5 mg) by mouth every 4 (four) hours if needed for severe pain (8-10 pain score) (Breakthrough pain) for up to 7 days. Please take 1 tablet every 4-6 hours for post op breakthrough pain that is not controlled with your home norco prescription. ALLERGIES is allergic to adhesive tape-silicones. FAMILY HISTORY has no family status information on file. family history is not on file. SOCIAL HISTORY reports that she quit smoking about 21 months ago. Her smoking use included cigarettes. She has never used smokeless tobacco. She reports current alcohol use. She reports that she does not use drugs. PHYSICIAL EXAM INITIAL VITALS: height is 1.803 m (5' 11 ) and weight is 125 kg (275 lb). Her oral temperature is 37.1 ???C (98.7 ???F). Her blood pressure is 151/80 and her pulse is 117 (abnormal). Her respiration is 20 and oxygen saturation is 99%. Physical Exam Vitals and nursing note reviewed. Constitutional: General: She is not in acute distress. Appearance: Normal appearance. She is obese. She is not ill-appearing. HENT: Head: Normocephalic and atraumatic. Eyes: Extraocular Movements: Extraocular movements intact. Conjunctiva/sclera: Conjunctivae normal. Pupils: Pupils are equal, round, and reactive to light. Pulmonary: Effort: Pulmonary effort is normal. Musculoskeletal: Cervical back: Normal range of motion. Comments: Left lower extremity is neurovascularly intact. There is some mild swelling noted of the left lower extremity versus the right. There is no calf tenderness or pain to the posterior aspect of her left thigh. She has some diffuse tenderness over the anterior aspect of her left knee. Her dressing over the posterior aspect of her left hip is clean and dry. There is no visible erythema or ecchymosis present. Lymphadenopathy: Cervical: No cervical adenopathy. Skin: General: Skin is warm and dry. Neurological: General: No focal deficit present. Mental Status: She is alert and oriented to person, place, and time. Mental status is at baseline. Psychiatric: Mood and Affect: Mood normal. Behavior: Behavior normal. DIAGNOSTIC RESULTS EKG: All EKG's are interpreted by the Emergency Department Physician who either signs or co-signs this chart in the absence of a library circulation clerk. Procedures RADIOLOGY: Radiologist interpretat (more content not included)... [facility] Telephoneon 12-06-2021 Telephone [phone] Sanjana Richardson 1970 Date Provider Department [place] 12/06/2021 LEO MARSHALL MP ORTHO MPORTHO No family history on file Reason for Visit and Comments: Hip Pain [[id number]] [facility] 36on 12-03-2021 36 Spoke with Mrs Cesar harmon to see how she was doing after her recent surgery with Dr Ortega. She stated she is doing well the pain is manageable with medications and ice. She is taking all the medications she was prescribed at discharge. She denies any redness, drainage, or major swelling. [facility] Telephoneon 12-03-2021 Telephone [id number] Sanjana Richardson 1970 [facility] Department [place] 12/03/2021 KWABENA CM MP ORTHO MPORTHO No family history on file [facility] 29on 11-29-2021 29 Encounter addended b y: Alek Neumann MD on: 12/17/2021 3:22 PM Actions taken: Clinical Note Signed [facility] DSon 11-29-2021 DS Admission Admitted 11/27/2021 for Osteoarthritis of left hip Discharge Diagnosis Primary osteoarthritis of left hip Discharge Disposition Home or Self Care Discharge Medications Your medication list START taking these medications Instructions Last Dose Given Next Dose Due acetaminophen 500 mg tablet Commonly known as: Tylenol Take 1 tablet (500 mg) by mouth in the morning, at noon, and at bedtime for 7 days. aspirin 325 mg EC tablet Take 1 tablet (325 mg) by mouth in the morning and at bedtime. cephalexin 500 mg capsule Commonly known as: Keflex Take 1 capsule (500 mg) by mouth every 6 (six) hours for 7 days. docusate sodium 100 mg capsule Commonly known as: Colace Take 1 capsule (100 mg) by mouth in the morning and at bedtime for 7 days. oxyCODONE 5 mg immediate release tablet Commonly known as: Roxicodone Take 1 tablet (5 mg) by mouth every 4 (four) hours if needed for severe pain (8-10 pain score) (Breakthrough pain) for up to 7 days. Please take 1 tablet every 4-6 hours for post op breakthrough pain that is not controlled with your home norco prescription. CONTINUE taking these medications Instructions Last Dose Given Next Dose Due baclofen 10 mg tablet Commonly known as: Lioresal cetirizine 10 mg tablet Commonly known as: ZyrTEC HYDROcodone-acetaminophen 5-325 mg tablet Commonly known as: [place] Where to Get Your Medications You can get these medications from any pharmacy Bring a paper prescription for each of these medications acetaminophen 500 mg tablet aspirin 325 mg EC tablet cephalexin 500 mg capsule docusate sodium 100 mg capsule oxyCODONE 5 mg immediate release tablet Activity Do not drive or drink alcohol while taking narcotic pain medications. No tub baths, swimming, or submerging your incision. Keep clean and dry until your follow-up visit Do not drive or drink alcohol while taking narcotic pain medications. No tub baths, swimming, or submerging your incision. Keep clean and dry until your follow-up visit Please abide by posterior hip precautions when out of bed and wear the hip abduction pillow while in bed at all times. Diet Resume home diet. Allergies Adhesive tape-silicones Hospital Course 51-year-old female was admitted for left total hip arthroplasty secondary to left hip pain and osteoarthritis. She tolerated the surgery appropriately and was admitted to the hospital. Of note, the patient did have an episode intraoperatively of hypotension with desaturation but this then resolved. Due to this episode, we involved our medicine colleagues with a ordered Dopplers of bilateral lower extremities, and a CT chest angiogram which were normal other than evidence of fatty liver. She did well with therapy and was deemed appropriate for discharge from both a therapy perspective and a medical perspective. She was given appropriate postoperative medications in the form of a blood thinner, antibiotic and stool softener and was told to follow-up with her PCP to look over her studies that were performed in the hospital and alter medications as needed. Pertinent Physical Exam At Time of Discharge Physical Exam: See progress note of day of discharge. Lab Results Labs Reviewed CBC - Abnormal Result Value Auto WBC 14.15 (*) RBC 4.59 Hemoglobin 13.6 Hematocrit 41.5 MCV 90.4 MCH 29.6 MCHC 32.8 RDW 13.2 Platelets 386 BASIC METABOLIC PANEL - Abnormal Sodium 138 Potassium 4.6 Chloride 102 CO2 27 BUN 21 Creatinine 0.77 Glucose 159 (*) Calcium 9.0 Anion Gap 9 eGFR 90.3 BUN/Creatinine Ratio 27.27 D-DIMER, QUANTITATIVE - Abnormal D-Dimer, Quant (FEU) 2.69 (*) Narrative: D-Dimer values of less than 0.50 ug/ml (FEU) are considered to be a negative predictor of thrombosis. However, the D-Dimer result should be used in conjunction with pretest probability and should not be used alone to diagnose a thrombotic event. BASIC METABOLIC PANEL - Abnormal Sodium 137 Potassium 4.4 Chloride 105 CO2 24 BUN 19 Creatinine 0.66 Glucose 122 (*) Calcium 8.3 (*) Anion Gap 8 eGFR 103.3 BUN/Creatinine Ratio 28.79 CBC - Abnormal Auto WBC 13.69 (*) RBC 3.96 Hemoglobin 11.7 (*) Hematocrit 36.0 MCV 90.9 MCH 29.5 MCHC 32.5 RDW 13.1 Platelets 381 MRSA/MSSA DNA NASAL - Normal MSSA DNA Negative MRSA DNA Negative POCT GLUCOSE METER UNSOLICITED RESULTS - Normal Glucose POC 96 APTT - Normal aPTT 35.0 PROTIME-INR - Normal Protime 13.1 INR 0.99 POCT GLUCOSE METER UNSOLICITED RESULTS - Normal Glucose POC 84 TYPE AND SCREEN ABO Grouping O Rh Type POS Ab Scrn NEG Issues Requiring Follow-Up Left total hip arthroplasty. Medical management with PCP. Outpatient Follow-Up Future Appointments Date Time Provider Department Center 12/27/2021 11:20 AM Monet Mullins [facility] Carlos Heal 03/14/2022 1:00 PM Leo Ortega MD MP ORTHO MPORTHO Test Results Pending At (more content not included)... Normal [facility] 30on 11-28-2021 30 The patient is Moder ately Stable - Low risk of patient condition declining or worsening The patient's goals for the shift include comfort The clinical goals for the shift include pain management Over the shift, the patient did not make progress toward the following goals. Barriers to progression include POD #1, inadequate medication balance. Recommendations to address these barriers include rest, diversion, pain medication regimen. Problem: Pain - Adult Goal: Verbalizes/displays adequate comfort level or baseline comfort level Outcome: Not Progressing Normal [facility] 30 The patient is Moder ately Stable - Low risk of patient condition declining or worsening The patient's goals for the shift include comfort and rest The clinical goals for the shift include pain management Over the shift, the patient did not make progress toward the following goals. Barriers to progression include N/A. Recommendations to address these barriers include N/A. Normal [facility] BASIC METABOLIC PANELon 10-2 -2021 Anion gap [Moles/Vol] 8 mmol/L Normal 7-20 [facility] Comment on above: Performed By: #### L [id number] ####[facility] ([facility])[address] [place] [address] Calcium [Mass/Vol] 8.3 mg/dL Low 8.6-10.3 [facility] Comment on above: Performed By: #### L [id number] ####[facility] ([facility])[address] [place] [address] Chloride [Moles/Vol] 105 mmol/L Normal 98-107 [facility] Comment on above: Performed By: #### L [id number] ####[facility] ([facility])[address] [place] [address] CO2 [Moles/Vol] 24 mmol/L Normal 21-31 [facility] Comment on above: Performed By: #### L [id number] ####[facility] ([facility])[address] [place] [address] Creatinine [Mass/Vol] 0.66 mg/dL Normal 0.60-1.20 [facility] Comment on above: Performed By: #### L [id number] ####[facility] ([facility])[address] [place] [address] GLOMERULAR FILTRATION RATE ML/MIN/1.73 SQ M.PREDICTED 103.3 mL/min/1.73m*2 Normal >60.0 [facility] Comment on above: Result Comment: The [facility]???s estimated glomerular filtration rate (eGFR) will no longer include consideration of race in its calculation. The National Kidney Foundation???s eGFR Task Force developed new recommendations for the estimation of the glomerular filtration rate in the [place] They recommend immediate implementation of the new equation refit without the race variable in all laboratories because the calculation does not include race. In addition to not including race in the calculation and reporting, it included diversity in its development, and has acceptable performance characteristics and potential consequences that do not disproportionately affect any one group of individuals. Performed By: #### L [id number] ####[facility] ([facility])[address] [place] [address] Glucose [Mass/Vol] 122 mg/dL High 70-100 [facility] Comment on above: Performed By: #### L [id number] ####[facility] ([facility])[address] [place] [address] Potassium [Moles/Vol] 4.4 mmol/L Normal 3.5-5.1 [facility] Comment on above: Performed By: #### L [id number] ####[facility] ([facility])[address] [place] [address] Sodium [Moles/Vol] 137 mmol/L Normal 136-145 [facility] Comment on above: Performed By: #### L [id number] ####[facility] ([facility])[address] [place] [address] Urea nitrogen [Mass/Vol] 19 mg/dL Normal 7-25 [facility] Comment on above: Performed By: #### L [id number] ####[facility] ([facility])[address] [place] [address] UREA NITROGEN/CREATININE (MASS RATIO) IN SER/PLAS 28.79 Normal [facility] Comment on above: Performed By: #### L [id number] ####[facility] [place] [address] CBCon 11-28-2021 Erythrocyte distribution width (RBC) [Ratio] 13.1 % Normal 11.5-15.0 [facility] Comment on above: Performed By: #### L [id number] ####[facility] ([facility])[address] [place] [address] ERYTHROCYTE MEAN CORPUSCULAR HEMOGLOBIN CONCENTRATION (G/DL) BY AUTOMATED 32.5 g/dL Normal 32.0-35.0 [facility] Comment on above: Performed By: #### L [id number] ####[facility] ([facility])[address] [place] [address] Hematocrit (Bld) [Volume fraction] 36.0 % Normal 36.0-48.0 [facility] Comment on above: Performed By: #### L [id number] ####[facility] ([facility])[address] [place] [address] Hemoglobin (Bld) [Mass/Vol] 11.7 g/dL Low 12.0-15.0 [facility] Comment on above: Performed By: #### L [id number] ####[facility] ([facility])[address] [place] [address] MCH (RBC) [Entitic mass] 29.5 pg Normal 27.0-33.0 [facility] Comment on above: Performed By: #### L [id number] ####[facility] ([facility])[address] [place] [address] MCV (RBC) [Entitic vol] 90.9 fL Normal 82.0-98.0 [facility] Comment on above: Performed By: #### L [id number] ####[facility] [place] [address] PLATELETS (10*3/UL) IN BLOOD AUTOMATED COUNT 381 10*3/uL Normal 150-400 [facility] Comment on above: Performed By: #### L [id number] ####[facility] [place] [address] RBC (Bld) [#/Vol] 3.96 10*6/uL Normal 3.80-5.00 [facility] Comment on above: Performed By: #### L [id number] ####[facility] [place] [address] WBC (Bld) [#/Vol] 13.69 10*3/uL High 4.00-10.60 [facility] Comment on above: Performed By: #### L [id number] ####[facility] ([facility])[address] [place] [address] CT CHEST ANGIOGRAM W AND/OR WO IV CONTRASTon 11-28-2021 CT CHEST ANGIOGRAM W AND/OR WO IV CONTRAST CT CHEST ANGIOGRAM W AND/OR WO IV CONTRAST 11/28/2021 12:27 PM CLINICAL INDICATIONS: Recent hip surgery with hypotension and hypoxia. Elevated d-dimer. Assess for pulmonary embolism. TECHNIQUE: Multidetector CT angiography axial slices of the chest were obtained with IV contrast. Multiplanar reformats, MIP, and volume rendered 3-D images were generated on a separate workstation and reviewed to further define anatomy and possible pathology. All CT scans at this facility use dose modulation, iterative reconstruction, and/or weight based dosing when appropriate to reduce radiation dose to as low as reasonably achievable. COMPARISON: None.. FINDINGS : No enlarged axillary lymph nodes or chest wall pathology. Normal heart size. No aortic aneurysm or dissection. No pericardial effusion or mediastinal. No evidence of pulmonary artery embolism. No pulmonary consolidation, effusion or significant congestion. Mild dependent atelectasis. Bony structures are age compatible. Included portions of the upper abdomen show no acute abnormality. There is diffuse hepatic steatosis noted. IMPRESSION: IMPRESSION: *Negative for pulmonary embolism. *Diffuse hepatic steatosis. Electronically signed: Daniel Meza. Normal [facility] Comment on above: Order Comment: CTA W ITH contrast POCT GLUCOSE METER UNSOLICIT ED RESULTSon 11-28-2021 Glucose [Mass/Vol] 84 mg/dL Normal 70-105 [facility] Comment on above: Result Comment: rsha w2 Performed By: #### L [id number] ####[facility] [place] [address] APTTon 11-27-2021 ACTIVATED PARTIAL THROMBOPLASTIN TIME IN PPP BY COAGULATION ASSAY 35.0 Seconds Normal 25.0-35.0 [facility] Comment on above: Performed By: #### L [id number] ####[facility] ([facility])[address] [place] [address] BASIC METABOLIC PANELon 10- Anion gap [Moles/Vol] 9 mmol/L Normal 7-20 [facility] Comment on above: Performed By: #### L [id number] ####[facility] ([facility])[address] [place] [address] Calcium [Mass/Vol] 9.0 mg/dL Normal 8.6-10.3 [facility] Comment on above: Performed By: #### L [id number] ####[facility] ([facility])[address] [place] [address] Chloride [Moles/Vol] 102 mmol/L Normal 98-107 [facility] Comment on above: Performed By: #### L [id number] ####[facility] ([facility])[address] [place] [address] CO2 [Moles/Vol] 27 mmol/L Normal 21-31 [facility] Comment on above: Performed By: #### L [id number] ####[facility] ([facility])[address] [place] [address] Creatinine [Mass/Vol] 0.77 mg/dL Normal 0.60-1.20 [facility] Comment on above: Performed By: #### L [id number] ####[facility] ([facility])[address] [place] [address] GLOMERULAR FILTRATION RATE ML/MIN/1.73 SQ M.PREDICTED 90.3 mL/min/1.73m*2 Normal >60.0 [facility] Comment on above: Result Comment: The [facility]???s estimated glomerular filtration rate (eGFR) will no longer include consideration of race in its calculation. The National Kidney Foundation???s eGFR Task Force developed new recommendations for the estimation of the glomerular filtration rate in the [place] They recommend immediate implementation of the new equation refit without the race variable in all laboratories because the calculation does not include race. In addition to not including race in the calculation and reporting, it included diversity in its development, and has acceptable performance characteristics and potential consequences that do not disproportionately affect any one group of individuals. Performed By: #### L [id number] ####[facility] ([facility] [place] [address] Glucose [Mass/Vol] 159 mg/dL High 70-100 [facility] Comment on above: Performed By: #### L [id number] ####[facility] ([facility])[address] [place] [address] Potassium [Moles/Vol] 4.6 mmol/L Normal 3.5-5.1 [facility] Comment on above: Performed By: #### L [id number] ####[facility] ([facility])[address] [place] [address] Sodium [Moles/Vol] 138 mmol/L Normal 136-145 [facility] Comment on above: Performed By: #### L [id number] ####[facility] ([facility])[address] [place] [address] Urea nitrogen [Mass/Vol] 21 mg/dL Normal 7-25 [facility] Comment on above: Performed By: #### L [id number] ####[facility] ([facility])[address] [place] [address] UREA NITROGEN/CREATININE (MASS RATIO) IN SER/PLAS 27.27 Normal [facility] Comment on above: Performed By: #### L [id number] ####[facility] ([facility])[address] [place] [address] CBCon 11-27-2021 Erythrocyte distribution width (RBC) [Ratio] 13.2 % Normal 11.5-15.0 [facility] Comment on above: Performed By: #### L [id number] ####[facility] ([facility] [place] [address] ERYTHROCYTE MEAN CORPUSCULAR HEMOGLOBIN CONCENTRATION (G/DL) BY AUTOMATED 32.8 g/dL Normal 32.0-35.0 [facility] Comment on above: Performed By: #### L [id number] ####[facility] ([facility])[address] [place] [address] Hematocrit (Bld) [Volume fraction] 41.5 % Normal 36.0-48.0 [facility] Comment on above: Performed By: #### L [id number] ####[facility] ([facility])[address] [place] [address] Hemoglobin (Bld) [Mass/Vol] 13.6 g/dL Normal 12.0-15.0 [facility] Comment on above: Performed By: #### L [id number] ####[facility] ([facility])[address] [place] [address] MCH (RBC) [Entitic mass] 29.6 pg Normal 27.0-33.0 [facility] Comment on above: Performed By: #### L [id number] ####[facility] ([facility])[address] [place] [address] MCV (RBC) [Entitic vol] 90.4 fL Normal 82.0-98.0 [facility] Comment on above: Performed By: #### L [id number] ####[facility] ([facility])[address] [place] [address] PLATELETS (10*3/UL) IN BLOOD AUTOMATED COUNT 386 10*3/uL Normal 150-400 [facility] Comment on above: Performed By: #### L [id number] ####[facility] ([facility])[address] [place] [address] RBC (Bld) [#/Vol] 4.59 10*6/uL Normal 3.80-5.00 [facility] Comment on above: Performed By: #### L [id number] ####[facility] ([facility])[address] [place] [address] WBC (Bld) [#/Vol] 14.15 10*3/uL High 4.00-10.60 [facility] Comment on above: Performed By: #### L [id number] ####[facility] ([facility])[address] [place] [address] CONSULTon 11-27-2021 CONSULT ----- ----- Attestation signed by Aryan Vega at 11/28/2021 8:39 PM I personally saw and examined the patient on the same date of service as resident/fellow Dr. Chavis. I discussed the findings and therapeutic plan with the resident/fellow Dr. Chavis. I agree with the documentation, except for any edits/updates below. Teaching Physician's Revisions: With elevated d-dimer will proceed with CTA chest. ----- Reason For Consult concern for PE Referring Provider: Leo Ortega MD History Of Present Illness Keila Richardson is a 51 y.o. female with no significant medical history who is admitted for total left hip arthroplasty. She was having ongoing left hip pain and groin pain for the past 3-4 years. Xrays of the hips have shown severe osteoarthritis. She was medically managed, but had persistent pain and elected for left hip total arthroplasty. During surgery, orthopedic team was doing some drilling or similar invasive maneuver to a bone and patient became hypotensive with SBP into 60s and became acutely hypoxic requiring 3L NC. Patient has had decreasing requirement of oxygen. However, orthopedic surgery was concerned about the acute hypoxia and asked [facility] consults team to evaluate the patient. She states that she has no history of previous clots. No recent surgery in the past 4 weeks or recent immobilization. Past Medical History She has a past medical history of Fractures, Osteoarthritis, and Seasonal allergies. Surgical History She has a past surgical history that includes Hysterectomy; Femur fracture surgery (Left); Knee Arthroplasty (Bilateral); Knee arthroscopy w/ debridement (Bilateral); and Partial hysterectomy. Family History No family history on file. Social History She reports that she quit smoking about 21 months ago. Her smoking use included cigarettes. She has never used smokeless tobacco. She reports current alcohol use. She reports that she does not use drugs. Allergies Adhesive tape-silicones Medications Medications Prior to Admission Medication Sig Dispense Refill Last Dose baclofen (Lioresal) 10 mg tablet Take 1 tablet by mouth at bedtime. 11/26/2021 cetirizine (ZyrTEC) 10 mg tablet Take 10 mg by mouth at bedtime. 11/26/2021 HYDROcodone-acetaminophen (Navarre) 5-325 mg tablet Take 2 tablets by mouth in the morning and at bedtime. 11/27/2021 Active Hospital Medications Medication Dose Route Frequency Last Admin [START ON 11/28/2021] aspirin 325 mg oral BID baclofen 10 mg oral Nightly bupivacaine-epinephrine ceFAZolin 3 g intravenous q8h [START ON 11/28/2021] cephalexin 500 mg oral q6h cetirizine 10 mg oral Nightly docusate sodium 100 mg oral BID HYDROcodone-acetaminophen 1 tablet oral q6h PRN HYDROcodone-acetaminophen 2 tablet oral BID 2 tablet at 11/27/21 1728 lactated Ringer's 30 mL/hr intravenous Continuous 300 mL at 11/27/21 1416 ondansetron ODT 4 mg oral q8h PRN Or ondansetron 4 mg intravenous q6h PRN Oxygen Therapy inhalation Continuous Given at 11/27/21 1500 prochlorperazine 5 mg intravenous q15 min PRN sodium chloride 100 mL/hr intravenous Continuous 100 mL/hr at 11/27/21 1730 Review of Systems Constitutional: Negative for chills and fever. HENT: Negative for rhinorrhea and sore throat. Eyes: Negative for visual disturbance. Respiratory: Negative for shortness of breath. Cardiovascular: Negative for chest pain. Gastrointestinal: Negative for abdominal pain, constipation, diarrhea, nausea and vomiting. Genitourinary: Negative for dysuria. Musculoskeletal: Positive for arthralgias (hip). Skin: Negative for rash. Neurological: Negative for dizziness and headaches. Last Recorded Vitals Patient Vitals for the past 24 hrs: BP Temp Temp src Pulse Resp SpO2 Height Weight 11/27/21 1628 109/70 -- -- 86 (!) 7 95 % -- -- 11/27/21 1620 (!) 101/45 -- -- 99 19 98 % -- -- 11/27/21 1605 122/76 -- -- 92 13 98 % -- -- 11/27/21 1550 111/78 -- -- 88 10 99 % -- -- 11/27/21 1535 117/72 -- -- 101 17 99 % -- -- 11/27/21 1520 105/76 37 ???C (98.6 ???F) Temporal 96 14 91 % -- -- 11/27/21 1500 -- -- -- -- -- 97 % -- -- 11/27/21 1042 (!) 145/93 36.1 ???C (97 ???F) Temporal 102 16 97 % -- -- 11/27/21 1031 -- -- -- -- -- -- 1.803 m (5' 11 ) 127 kg (280 lb 6.8 oz) Physical Exam Vitals reviewed. Constitutional: General: She is not in acute distress. Appearance: She is not ill-appearing or toxic-appearing. HENT: Head: Normocephalic and atraumatic. Mouth/Throat: Mouth: Mucous membranes are moist. Eyes: General: No scleral icterus. Extraocular Movements: Extraocular movements intact. Pupils: Pupils are equal, round, and reactive to light. Cardiovascular: Rate and Rhythm: Regular rhythm. Tachycardia present. Heart sounds: Normal heart sounds. No murmur heard. No friction (more content not included)... Normal [facility] D-DIMER, QUANTITATIVEon 11-09 FIBRIN D-DIMER (UG/L FEU) IN PLATELET POOR PLASMA 2.69 mcg/mL FEU High 0.27-0.49 [facility] Comment on above: Order Comment: D-Dim er values of less than 0.50 ug/ml (FEU) are considered to be a negative predictor of thrombosis. However, the D-Dimer result should be used in conjunction with pretest probability and should not be used alone to diagnose a thrombotic event. Performed By: #### L [id number] ####[facility] ([facility])[address] [place] [address] HPon 11-27-2021 History Of Present Illness Keila Richardson is a 51 y.o. female who has been referred by Dr. Farias for possible left hip arthroplasty. Patient has been having ongoing left hip and groin pain for the past 3 to 4 years. She denies any trauma to the left hip joint. 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 Patient states states that she has had pain to the left hip for 3 to 4 years, but has noticed worsening over the last several months. Pain is especially bad when going up or down stairs, activities like getting out of cars. Denies any recent trauma or injury. Denies any numbness or tingling. She has noticed that she has decreased range of motion to the left hip compared to when she previously had. Is taking Navarre for pain, no physical therapy, got injection 6 weeks ago and states it only worked for a couple days. Patient pointed difficult to do her activities with severe pain in the left groin and this has been affecting her daily living. She has tried oral pain medications as well as cortisone injection that was done in July 2021 which has not helped her. She has been accompanied by her family today and wants to proceed with left hip replacement surgery. Patient has recent history of right distal femur fracture after tripping and falling at standing height that required multiple procedures and revisions following nonunion done by Dr. Farias on 10 April 2021. Patient also sees a pain management physician and has been on narcotic medications for her pain. She does have pain radiating down the lower extremity as well with buttock pain. Occasional paresthesia noted. Past Medical History She has a past medical history of Fractures, Osteoarthritis, and Seasonal allergies. Surgical History She has a past surgical history that includes Hysterectomy; Femur fracture surgery (Left); Knee Arthroplasty (Bilateral); Knee arthroscopy w/ debridement (Bilateral); and Partial hysterectomy. Social History She reports that she quit smoking about 21 months ago. Her smoking use included cigarettes. She has never used smokeless tobacco. She reports current alcohol use. She reports that she does not use drugs. Family History No family history on file. Allergies Adhesive tape-silicones Medications Medications Prior to Admission Medication Sig Dispense Refill Last Dose baclofen (Lioresal) 10 mg tablet Take 1 tablet by mouth at bedtime. 11/26/2021 cetirizine (ZyrTEC) 10 mg tablet Take 10 mg by mouth at bedtime. 11/26/2021 HYDROcodone-acetaminophen (Navarre) 5-325 mg tablet Take 2 tablets by mouth in the morning and at bedtime. 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 Farias in April 2021, osteoporosis, morbid obesity, long-term narcotic medications with current narcotic treatment with pain management, osteoporosis, bilateral total knee arthroplasty at an outside institution, Last Recorded Vitals Patient Vitals for the past 24 hrs: BP Temp Temp src Pulse Resp SpO2 Height Weight 11/27/21 1042 (!) 145/93 36.1 ???C (97 ???F) Temporal 102 16 97 % -- -- 11/27/21 1031 -- -- -- -- -- -- 1.803 m (5' 11 ) 127 kg (280 lb 6.8 oz) Physical Exam Relevant Lab Results Lab Results Component Value Date CO2 27 04/11/2021 BUN 16 04/11/2021 CALCIUM 8.3 (L) 04/11/2021 EGFR >60 04/11/2021 EGFR >60 04/11/2021 Constitutional General Appearance: healthy-appearing, NAD, obese Gait and Station Appearance: ambulating with walker Hips Active Range of Motion Right: (Decreased external and internal rotation) Passive Range of Motion Right: limited, pain elicited by motion Strength Left: normal 5/5 OE : AO X 3, Vitals: stable, R/S: No SOB CVS: No chest pain or palpitations. Morbid obesity noted, patient walks with antalgia, Left hip and the lumbosacral spine: Loss of lumbar lordosis noted, morbid obesity noted with weakness in the abductors, tenderness in the left groin positive, positive trochanteric tenderness noted, left SI joint tenderness noted with positive Johnna's, logroll test positive on the left side as compared to right side, scars from the right hip joint surgery have healed well, scar on the introspective left knee joint noted as well as the right side which have healed well, tenderness in the gluteal region as well as the ITB band noted, SLR equivocal, positive Stinchfield sign, positive logroll test, all in the lower extremities about 4+ to 5, DTR 1+. No calf swelling or tenderness noted, no signs of new neurological deficit seen. X-ray taken in office today 09/27/2021 demonstrates severe OA of the left hip with nearly complete narrowing of the medial joint space and me (more content not included)... Normal [facility] HP H&P reviewed. The esvin hyde was examined and there are no changes to the H&P. Normal [facility] MRSA/MSSA DNA NASALon 2021 MRSA DNA Negative Normal Negative, Invalid [facility] Comment on above: Performed By: #### L [id number] ####[facility] ([facility])[address] [place] [address] MSSA DNA Negative Normal Negative, Invalid [facility] Comment on above: Performed By: #### L [id number] ####[facility] ([facility])[address] [place] [address] OPNOTEon 11-27-2021 OPNOTE ARTHROPLASTY, HIP, T OTAL (L) Operative Note Date: 11/27/2021 Location: [facility] Name: Keila Richardson, : 1970, Diagnosis Pre-op Diagnosis * Osteoarthritis of left hip, unspecified osteoarthritis type [M16.12] Post-op Diagnosis * Osteoarthritis of left hip, unspecified osteoarthritis type [M16.12] * 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 Alek Neumann MD resident orthopedic surgery Procedure Summary Anesthesia: General ASA: II Estimated Blood Loss: 500 mL Total IV Fluids: Please see anesthesia chart mL Drains: * None in log * Implants Type Name Action Serial No. 6.5 MM LOW PROFILE HEX SCREW Implanted 1 MDM CEMENTLESS LINER Implanted Alpha code E TRIDENT TRITANIUM CLUSTERHOLE ACETABULAR SHELL Implanted 54 mm INSIGNIA HIP STEM - HIGH OFFSET Implanted Size 5 BIOLOX DELTA CERAMIC FEMORAL HEAD Implanted 28 mm outer diameter JAIN ADM/MDM X 3 INSERT Implanted Alpha code E Staff: It Technical Specialist: Alexus Agosto RN Relief It Technical Specialist: Bonita Tomlinson RN Relief Scrub: Cristiane Solares, MARLENY Scrub Person: Caty Clark CST Hygiene Coordinator: Milad Avelar CSA Indications: Keila Richardson is an 51 y.o. female who is having surgery for Osteoarthritis of left hip, unspecified osteoarthritis type [M16.12]. Patient is known to have osteoporosis and central protrusio of the left hip along with severe central arthritis. Patient has been limping around and has severe groin pain on the left side. She has tried nonsurgical treatment including weight loss program which has failed. Patient has been limping around she recently had fracture of her right femur and required nailing as well as bone grafting. Since the patient has been struggling she is indicated for left primary total hip arthroplasty using Jason implants. Risk and benefits of the procedure were explained to the patient as mentioned below. Procedure Details: The patient was seen in the preoperative area. The risks, benefits, complications, treatment options, non-operative alternatives, expected recovery and outcomes were discussed with the patient. The possibilities of reaction to medication, pulmonary aspiration, injury to surrounding structures, bleeding, recurrent infection, the need for additional procedures, iatrogenic fracture, periprosthetic fractures, need for multiple procedures, limiting discrepancy, recurrent dislocations, need for staged hip arthroplasty revision in case of infection, recurrent infection requiring further revisions in future and/or excision arthroplasty leading to limiting discrepancy and morbidities with activities of daily living, failure to diagnose a condition, and creating a complication requiring transfusion or operation were discussed with the patient. The patient concurred with the proposed plan, giving informed consent. The site of surgery was properly noted/marked if necessary per policy. The patient has been actively warmed in preoperative area. Preoperative antibiotics have been ordered and given within 1 hours of incision. Venous thrombosis prophylaxis have been ordered including unilateral sequential compression device and chemical prophylaxis Findings: Severe degenerative arthritis noted in the left hip joint along with severe osteophytosis on the anterior as well as inferior side which was excised. 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 Subchondral cysts noted as well as subchondral sclerosis. Weakness in the abductors noted for which we will proceed with high offset left hip arthroplasty. Procedure: The patient was taken to the [facility] orders placed in supine position. Following this she had general anesthesia by Dr.Pitroda WONG, followed by placement of the patient on the right lateral portion of the left hip on the top with use of pegboard and protecting all the bony landmarks as well as using the axillary roll. Following this we then proceeded with timeout as per standard protocol. This was followed by prep and drape of the left lower extremity using Hibiclens ChloraPrep and alcohol. Following this we then confirmed IV antibiotics within an hour of the incision. We then marked our incision over the left hip joint centering over the greater trochanter curving slightly posterior to the gluteal region. This is an followed by using a #15 blade we then made a longitudinal incision over the left hip joint and this was deepened in layers. Patient has class II obesity due to which we had to go almost 8-9 cm deep through th (more content not included)... Normal [facility] OPNOTE ----- ----- Attestation signed by Leo Ortega MD at 11/27/2021 3:35 PM I was present for the entire procedure. ----- Date: 11/27/2021 Location: [facility] OR Name: Keila Richardson, : 1970, Diagnosis Pre-op Diagnosis * Osteoarthritis of left hip, unspecified osteoarthritis type [M16.12] Post-op Diagnosis * Osteoarthritis of left hip, unspecified osteoarthritis type [M16.12] Procedures ARTHROPLASTY, HIP, TOTAL 17449 - HI ARTHRP ACETBLR/PROX FEM PROSTC AGRFT/ALGRFT Surgeons * Leo Ortega - Primary Procedure Summary Anesthesia: General ASA: II Estimated Blood Loss: 500 mL Total IV Fluids: Per anesthesia records Drains: * None in log * Implants Type Name Action Serial No. 6.5 MM LOW PROFILE HEX SCREW Implanted MDM CEMENTLESS LINER Implanted TRIDENT TRITANIUM CLUSTERHOLE ACETABULAR SHELL Implanted INSIGNIA HIP STEM - HIGH OFFSET Implanted BIOLOX DELTA CERAMIC FEMORAL HEAD Implanted JAIN ADM/MDM X 3 INSERT Implanted Staff: It Technical Specialist: Alexus Agosto RN Relief It Technical Specialist: Bonita Tomlinson RN Relief Scrub: Cristiane Solares CST Scrub Person: Caty Clark CST Hygiene Coordinator: Milad Avelar CSA Indications: Keila Richardson is an 51 y.o. female who is having surgery for Osteoarthritis of left hip, unspecified osteoarthritis type [M16.12]. Findings: Left hip osteoarthritis. Complications: None; patient tolerated the procedure well. Disposition: PACU - hemodynamically stable. Condition: stable Specimens Collected: Order Name Source Comment Collection Info Order Time MRSA/MSSA DNA NASAL Nose Collected By: Margot Crews RN 11/27/2021 10:22 AM Release to Patient Immediately TYPE AND SCREEN Blood, Venous Collected By: Margot Crews RN 11/27/2021 10:51 AM Release to Patient Immediately Attending Attestation: I was present and scrubbed for the entire procedure. Alek Neumann Ortho PGY3 Leo Ortega Normal [facility] POCT GLUCOSE METER UNSOLICIT ED RESULTSon 11-27-2021 Glucose [Mass/Vol] 96 mg/dL Normal 70-105 [facility] Comment on above: Result Comment: ltol les Performed By: #### L [id number] ####[facility] ([facility])[address] [place] [address] PROTIME-INRon 11-27-2021 INR IN PPP BY COAGULATION ASSAY 0.99 Normal 0.90-1.10 [facility] Comment on above: Result Comment: ACCC P RECOMMENDED INR FOR WARFARIN THERAPY CONDITION INR PROPHYLAXIS OF VENOUS THROMBOSIS 2-3 (HIGH-RISK SURGERY) TREATMENT OF VENOUS THROMBOSIS 2-3 TREATMENT OF PULMONARY EMBOLISM 2-3 PREVENTION OF SYSTEMIC EMBOLISM: 2-3 ACUTE MYOCARDIAL INFARCTION TISSUE HEART VALVES VALVULAR HEART DISEASE ATRIAL FIBRILLATION RECURRENT SYSTEMIC EMBOLISM MECHANICAL HEART VALVE 2.5-3.5 FROM: ORAL ANTICOAGULANTS. MECHANISM OF ACTION, CLINICAL EFFECTIVENESS, AND OPTIMAL THERAPEUTIC RANGE. CHEST 1995;108:231S-246S. Performed By: #### L [id number] ####[facility] ([facility])[address] [place] [address] PROTHROMBIN TIME (PT) IN PPP BY COAGULATION ASSAY 13.1 Seconds Normal 12.3-14.8 [facility] Comment on above: Performed By: #### L [id number] ####[facility] ([facility])[address] [place] [address] TYPE AND SCREENon 11-27-2021 AB SCREEN Negative Normal [facility] Comment on above: Performed By: #### L [id number] ####[facility], ABO group Nom (Bld) O Normal [facility] Comment on above: Performed By: #### L [id number] ####[facility], RH TYPE IN BLOOD Positive Normal [facility] Comment on above: Performed By: #### L [id number] ####[facility], 36on 11-26-2021 36 Test was faxed by reg paz on 11/25/2021, sheet writer called patient to let her know. Normal [facility] Orders Onlyon 11-26-2021 Orders Only [id number] Sanjana Richardson reyes 1970 F Date Provider Department Center 11/26/2021 [id number], HISTORICAL [facility] PAT [facility] Medical C No family history on file Normal [facility] Covid-19 PCR (CVDTB)on 11-09 SARS-CoV-2 (COVID-19) RNA RAKAN+probe Ql (Unsp spec) Not detected Normal NOT DETECTED [facility] Comment on above: Result Comment: This test is not yet approved or cleared by the [place] FDA. When there are no FDA-approved or cleared tests available, and other criteria are met, FDA can make tests available under an emergency access mechanism called an Emergency Use Authorization (EUA). The EUA for this test is supported by the [place] of Health and Human Service's (HHS's) declaration that circumstances exist to justify the emergency use of in vitro diagnostics for the detection and/or diagnosis of the virus that causes COVID-19. This EUA will remain in effect (meaning this test can be used) for the duration of the COVID-19 declaration justifying emergency of IVDs, unless it is terminated or revoked by FDA (after which the test may no longer be used). When diagnostic testing is negative, the possibility of a false negative should be considered in the context of a patient's recent exposures and the presence of clinical signs and symptoms consistent with SARS-CoV-2. Performed By: #### C VDTB #### [facility] [address], [place] [address] Dr. Laura Chavis [id number] 11-20-2021 [id number] NPO after [place] Must have a seasonal delivery driver to take you home and someone to stay for 24 hours after surgery. No jewelry. Hold the meds we spoke about: MVI, NSAIDS, HERBAL SUPP. X 1 WEEK Take the meds we spoke about w/a sip of water DOS: BENITO IBARRA Bring insurance card and ID. Normal [facility] 29on 11-19-2021 29 Addended by: KELSEY DINERO on: 11/19/2021 03:02 PM Modules accepted: Orders, SmartSet Normal [facility] Orders Onlyon 11-19-2021 Orders Only [id number] Sanjana Richardson reyes 1970 F Date Provider Department Center 11/19/2021 3186-KELSEY DINERO ORTHO MPORTHO No family history on file Normal [facility] Covid-19 [facility]-11 SARS-CoV-2 (COVID-19) RNA RAKAN+probe Ql (Unsp spec) Not detected Normal NOT DETECTED The [facility] Comment on above: Result Comment: This test is not yet approved or cleared by the [place] FDA. When there are no FDA-approved or cleared tests available, and other criteria are met, FDA can make tests available under an emergency access mechanism called an Emergency Use Authorization (EUA). The EUA for this test is supported by the [place] of Health and Human Service's (HHS's) declaration that circumstances exist to justify the emergency use of in vitro diagnostics for the detection and/or diagnosis of the virus that causes COVID-19. This EUA will remain in effect (meaning this test can be used) for the duration of the COVID-19 declaration justifying emergency of IVDs, unless it is terminated or revoked by FDA (after which the test may no longer be used). When diagnostic testing is negative, the possibility of a false negative should be considered in the context of a patient's recent exposures and the presence of clinical signs and symptoms consistent with SARS-CoV-2. Performed By: #### C [facility] #### [facility] [address], [place] [address] Dr. Laura Chavis [id number] 11-01-2021 [id number] NPO after [place] Must have a seasonal delivery driver to take you home and someone to stay for 24 hours after surgery. No jewelry. Hold the meds we spoke about: NSAIDS AND VITAMINS AND MINERALS Take the meds we spoke about w/a sip of water DOS: VICKIE IBARRA Bring insurance card and ID. Normal [facility] 36on 10-31-2021 36 I called and spoke t o the patient for discharge planning prior to her joint replacement surgery. The patient would like to discharge to home following her release from the hospital. She has 5 steps to get into her house, and once she is inside everything remains on one floor. She will have support at home. She does not want to do therapy at this time. She has a walker, shower chair, and raised toilet seat. Patient stated she got her labs done at [facility], they are to fax over to us. RN faxed over covid lab order. Normal [facility] Orders Onlyon 10-31-2021 Orders Only [id number] Sanjana Richardson reyes 1970 F Date Provider Department Center 10/31/2021 LAURA BERMUDEZ MP ORTHO MPORTHO No family history on file Normal [facility] Telephoneon 10-31-2021 Telephone [id number] Sanjana Richardson 1970 F Date Provider Department [place] 10/31/2021 KWABENA CM MP ORTHO MPORTHO No family history on file Reason for Visit and Comments: Pre-op education [Other] Normal [facility] CBC AUTO DIFFon 10-29-2021 BASO # 0.0 103/ul Normal 0.0-0.1 [facility] Comment on above: Performed By: #### C BC #### [facility] [address] [place] [address] Dr. Laura Chavis Basophils/100 WBC (Bld) 0.3 % Normal 0.2-2.0 [facility] Comment on above: Performed By: #### C BC #### [facility] [address] [place] [address] Dr. Laura Chavis EO # 0.1 103/ul Normal 0.0-0.7 [facility] Comment on above: Performed By: #### C BC #### [facility] [address] [place] [address] Dr. Laura Chavis Eosinophils/100 WBC (Bld) 0.6 % Critically low 0.9-7.0 [facility] Comment on above: Performed By: #### C BC #### [facility] [address] [place] [address] Dr. Laura Chavis Erythrocyte distribution width (RBC) [Ratio] 14.3 % Normal 11.0-15.0 [facility] Comment on above: Performed By: #### C BC #### [facility] [address] [place] [address] Dr. Laura Chavis Hematocrit (Bld) [Volume fraction] 41.4 % Normal 36.0-48.0 [facility] Comment on above: Performed By: #### C BC #### [facility] [address] [place] [address] Dr. Laura Chavis Hemoglobin (Bld) [Mass/Vol] 13.0 g/dL Normal 12.0-16.0 [facility] Comment on above: Performed By: #### C BC #### [facility] [address] [place] [address] Dr. Laura Chavis IG # 0.07 10e3/ul Critically high 0.00-0.03 [facility] Comment on above: Performed By: #### C BC #### [facility] [address] [place] [address] Dr. Laura Chavis IG % 0.6 % Critically high 0.0-0.5 [facility] Comment on above: Performed By: #### C BC #### [facility] [address] [place] [address] Dr. Laura Chavis LYMPH # 4.4 103/ul Critically high 1.2-3.8 [facility] Comment on above: Performed By: #### C BC #### [facility] [address] [place] [address] Dr. Laura Chavis Lymphocytes/100 WBC (Bld) 39.4 % Normal 20.5-60.0 [facility] Comment on above: Performed By: #### C BC #### [facility] [address] [place] [address] Dr. Laura Chavis MANUAL DIFF REQ NO Normal [facility] Comment on above: Performed By: #### C BC #### [facility] [address] [place] [address] Dr. Laura Chavis MCH (RBC) [Entitic mass] 28.7 pg Normal 26.7-34.0 [facility] Comment on above: Performed By: #### C BC #### [facility] [address] [place] [address] Dr. Laura Chavis MCHC (RBC) [Mass/Vol] 31.4 g/dL Normal 29.9-35.2 [facility] Comment on above: Performed By: #### C BC #### [facility] [address] [place] [address] Dr. Laura Chavis MCV (RBC) [Entitic vol] 91.4 fL Normal 81.0-99.0 [facility] Comment on above: Performed By: #### C BC #### [facility] [address] [place] [address] Dr. Laura Chavis MONO # 0.8 103/ul Normal 0.3-0.8 [facility] Comment on above: Performed By: #### C BC #### [facility] [address] [place] [address] Dr. Laura Chavis Monocytes/100 WBC (Bld) 6.9 % Normal 1.7-12.0 [facility] Comment on above: Performed By: #### C BC #### [facility] [address] [place] [address] Dr. Laura Chavis NEUT # 5.8 103/ul Normal 1.4-6.5 [facility] Comment on above: Performed By: #### C BC #### [facility] [address] [place] [address] Dr. Laura Chavis Neutrophils/100 WBC (Bld) 52.2 % Normal 43.0-75.0 [facility] Comment on above: Performed By: #### C BC #### [facility] [address] [place] [address] Dr. Laura Chavis Platelet mean volume (Bld) [Entitic vol] 8.8 fL Critically low 9.5-13.5 [facility] Comment on above: Performed By: #### C BC #### [facility] [address] [place] [address] Dr. Laura Chavis PLT 365 103/ul Normal 150-450 [facility] Comment on above: Performed By: #### C BC #### [facility] [address] [place] [address] Dr. Laura Chavis RBC 4.53 106/ul Normal 4.20-5.40 [facility] Comment on above: Performed By: #### C BC #### [facility] [address] [place] [address] Dr. Laura Chavis WBC 11.2 103/ul Critically high 4.0-11.0 [facility] Comment on above: Performed By: #### C BC #### [facility] [address] [place] [address] Dr. Laura Chavis MRSA NARES #1on 10-29-2021 MRSA NARES #1 Culture Observations : NO GROWTH OF MRSA AT 48 HOURS. Normal [facility] Comment on above: Performed By: #### M RSAN1 #### [facility] [address] [place] [address] Dr. Laura Chavis PROF CHEM 8 (BAS METB)on Anion gap [Moles/Vol] 8.3 mmol/L Normal [facility] Comment on above: Performed By: #### B MP #### [facility] [address] [place] [address] Dr. Laura Chavis Calcium [Mass/Vol] 9.0 mg/dL Normal 8.5-10.1 [facility] Comment on above: Performed By: #### B MP #### [facility] [address] [place] [address] Dr. Laura Chavis Chloride [Moles/Vol] 105 mmol/L Normal 98-107 [facility] Comment on above: Performed By: #### B MP #### [facility] [address] [place] [address] Dr. Laura Chavis CO2 [Moles/Vol] 30.4 mmol/L Normal 21.0-32.0 [facility] Comment on above: Performed By: #### B MP #### [facility] [address] [place] [address] Dr. Laura Chavis Creatinine [Mass/Vol] 0.92 mg/dL Normal 0.55-1.02 [facility] Comment on above: Performed By: #### B MP #### [facility] [address] [place] [address] [address] Laura Chavis EGFR-AF BRITISH >60 Normal >=60 [facility] Comment on above: Performed By: #### B MP #### [facility] [address] [place] [address] [address] Laura Chavis EGFR-NON AF BRITISH >60 Normal >=60 [facility] Comment on above: Performed By: #### B MP #### [facility] [address] [place] [address] [address] Laura Chavis Glucose [Mass/Vol] 87 mg/dL Normal 74-106 [facility] Comment on above: Performed By: #### B MP #### [facility] [address] [place] [address] Dr. Laura Chavis Potassium [Moles/Vol] 3.7 mmol/L Normal 3.5-5.1 [facility] Comment on above: Performed By: #### B MP #### [facility] [address] [place] [address] Dr. Laura Chavis Sodium [Moles/Vol] 140 mmol/L Normal 136-145 [facility] Comment on above: Performed By: #### B MP #### [facility] [address] [place] [address] [address] Laura Chavis Urea nitrogen [Mass/Vol] 19.0 mg/dL Critically high 7.0-18.0 [facility] Comment on above: Performed By: #### B MP #### [facility] [address] [place] [address] [address] Laura Chavis Urea nitrogen/Creatinine [Mass ratio] 20.7 mg/mg Normal [facility] Comment on above: Performed By: #### B MP #### [facility] [address] [place] [address] Dr. Laura Chavis PROTIMEon 10-29-2021 INR Coag (PPP) [Relative time] 0.95 {INR} Normal [facility] Comment on above: Performed By: #### C VDTBH #### [facility] [address] [place] [address] Dr. Laura Chavis INR GUIDELINES SEE BELOW Normal [facility] Comment on above: Result Comment: AMOR RED INR: 2.0 - 3.0 CONDITIONS NOT LISTED BELOW 2.5 - 3.5 FOR PROSTHETIC HEART VALVE REPLACEMENT 2.5 - 3.5 RECURRENT THROMBOSIS Performed By: #### C VDTBH #### [facility] [address] [place] [address] Dr. Laura Chavis PT Coag (PPP) [Time] 10.3 s Normal 9.0-11.6 [facility] Comment on above: Performed By: #### C VDTBH #### [facility] [address] [place] [address] Dr. Laura Chavis PTTon 10-29-2021 aPTT Coag (Bld) [Time] 27.5 s Normal 22.3-36.2 [facility] Comment on above: Performed By: #### P T, PTT #### [facility] [address] [place] [address] Dr. Laura Chavis FEMUR RIGHT 2 Son 10-19-19 FEMUR RIGHT 2 S [facility] Department of Radiology [address] [place] [id number] Patient Name: KEILA RICHARDSON : 1970 Sex: F Age: Race: White Pt. Location: Patient Status: O Ordered Date: 10/18/2021 12:35:00 PM Completed Date: 10/18/2021 12:49 PM Requesting Provider: CHARLY FARIAS Attending Provider: CHARLY FARIAS Report Copy To: Signs & Symptoms: S72.91XA Unsp fracture of right femur, init for clos fx I10 History: [place] Comments: Evaluate Exam: FEMUR RIGHT 2 VWS FEMUR RIGHT 2 VWS 10/18/2021 12:49 PM CLINICAL INDICATIONS: S72.91XA Unsp fracture of right femur, init for clos fx I10 TECHNOLOGIST COMMENTS: History of multiple right femurs surgeries. Last surgery was 04/10/2021 QUESTION FOR THE RADIOLOGIST: Evaluate PROTOCOL: AP(PA) and Lateral views were obtained. COMPARISON: 09/27/2021 FINDINGS: Intramedullary lópez with multiple orthopedic plates and screws in place. Alignment satisfactory. No erosion. Soft tissues unremarkable. IMPRESSION: Satisfactory alignment following ORIF Electronically signed: Moncho Beyer. Transcribed by: [email or web address], User Resident: Electronically Signed by: MONCHO BEYER @ 10/18/2021 02:00 PM Normal [facility] Comment on above: Order Comment: Evalu ate HIP LEFT 1 OR 2 VWS WITH PEL VISon 09-27-2021 HIP LEFT 1 OR 2 VWS WITH PELVIS [facility] Department of Radiology [address] [place] [id number] Patient Name: KEILA RICHARDSON : 1970 Sex: F Age: Race: White Pt. Location: Patient Status: D Ordered Date: 09/27/2021 2:55:00 PM Completed Date: 09/27/2021 03:08 PM Requesting Provider: LEO ORTEGA Attending Provider: Report Copy To: Signs & Symptoms: M25.552 Pain in left hip I10 History: [place] Comments: Evaluate Exam: HIP LEFT 1 OR 2 VWS WITH PELVIS HIP LEFT 1 OR 2 VWS WITH PELVIS 09/27/2021 3:08 PM SIGNS AND SYMPTOMS: M25.552 Pain in left hip I10 TECHNOLOGIST COMMENTS: Patient has left hip pain for years that is worsening. QUESTION FOR THE RADIOLOGIST: Evaluate PROTOCOL: AP(PA) and Lateral views were obtained. COMPARISON: July 12, 2021 FINDINGS: Pelvic ring and sacrum appear intact and atraumatic. Partially visualized right hip prosthesis appears uncomplicated. There is advanced degeneration of the left hip joint space narrowing and numerous subarticular cysts. No evidence of articular collapse or acute bony abnormality. IMPRESSION: * Advanced degeneration of the left hip. Electronically signed: Daniel Meza. Transcribed by: [email or web address], User Resident: DANIEL MEZA Electronically Signed by: DANIEL MEZA @ 09/29/2021 02:18 PM I personally read this/these film(s) with this resident Normal [facility] Comment on above: Order Comment: Evalu ate JOINT PAIN INJECTIONon 08-15 JOINT PAIN INJECTION [facility] Department of Radiology [address] [place] [phone] Patient Name: KEILA RICHARDSON : 1970 Sex: F Age: Race: White Pt. Location: 84 Patient Status: O Ordered Date: 08/07/2021 11:55:00 AM Completed Date: 08/15/2021 09:17 AM Requesting Provider: CHARLY FARIAS Attending Provider: CHARLY FARIAS Report Copy To: MARIBELL ALVAREZ Signs & Symptoms: M25.552 Pain in left hip I10 History: [place] Comments: Please inject 4cc of lidocaine 1% and 2cc of kenalog 10mg in the left hip , Body Part: Hip , Side: LEFT Exam: JOINT PAIN INJECTION JOINT PAIN INJECTION 08/15/2021 9:17 AM CLINICAL INDICATIONS: M25.552 Pain in left hip I10 TECHNOLOGIST COMMENTS: Dr. Obando/Joanna used 0.13 minutes of fluoro time, 1 ml of Kenalog-40, 15 ml's of 1% Lidocaine, and 3 ml's of Omnipaque 240 for a left hip pain injection 7 ml's of pain solution injected into left hip QUESTION FOR THE RADIOLOGIST: Please inject 4cc of lidocaine 1% and 2cc of kenalog 10mg in the left hip , Body Part: Hip , Side: LEFT TECHNIQUE: Therapeutic injection of the left hip under fluoroscopic guidance. Procedure and Findings: Risks, benefits, indications, and alternatives to the procedure were explained to the patient. Risks include bleeding and infection. All questions were answered. Both written and verbal informed consent was obtained. Patient was placed in the supine position on the fluoroscopic table. Suitable site, at the appropriate area of interest, was marked using fluoroscopic guidance and overlying skin prepped and draped in usual sterile fashion. 9 mL Lidocaine 1% was used for local and deep anesthesia. A 20-gauge spinal needle was advanced under fluoroscopic guidance. Final intracapsular location was confirmed with injection 3 mL Omnipaque 240 contrast. Next, Kenalog 1 cc (40 mg) and Lidocaine 1% 6 cc were injected without complication. Needle was removed and a sterile bandage applied. Patient tolerated the procedure well. Fluoroscopy time: 0.13 minutes. 5 images acquired. Patient reported pain of 5/10 before the procedure and improved to 0-1/[address] Paz was present for the entire procedure. IMPRESSION: * Successful fluoroscopic guided left hip pain block procedure. Approved by:Aida Mcgregor08/15/2021 10:57 AM. I, Magy Paz,have reviewed the image(s) and agree with the findings in this report. Electronically signed: Magy Paz. Transcribed by: [email or web address], User Resident: AIDA OBANDO Electronically Signed by: MAGY PAZ @ 08/15/2021 01:28 PM I personally read this/these film(s) with this resident Normal [facility] Comment on above: Order Comment: Pleabigail e inject 4cc of lidocaine 1% and 2cc of kenalog 10mg in the left hip , Body Part: Hip , Side: LEFT FEMUR RIGHT 2 [facility] 07-13-19 22 FEMUR RIGHT 2 [facility] Department of Radiology [address] [place] [phone] Patient Name: KEILA RICHARDSON : 1970 Sex: F Age: Race: White Pt. Location: Patient Status: D Ordered Date: 07/12/2021 1:00:00 PM Completed Date: 07/12/2021 01:09 PM Requesting Provider: CHARLY FARIAS Attending Provider: CHARLY FARIAS Report Copy To: MARIBELL ALVAREZ Signs & Symptoms: S72.91XA Unsp fracture of right femur, init for clos fx I10 History: [place] Comments: , , , Ordering Provider - CHARLY FARIAS , Exam: FEMUR RIGHT 2 S FEMUR RIGHT 2 VWS 07/12/2021 1:09 PM CLINICAL INDICATIONS: S72.91XA Unsp fracture of right femur, init for clos fx I10 TECHNOLOGIST COMMENTS: right femur surgery 04/10/21 follow up QUESTION FOR THE RADIOLOGIST: , , , Ordering Provider - CHARLY FARIAS , PROTOCOL: AP(PA) and Lateral views were obtained. COMPARISON: May 22, 2021. FINDINGS: Extensive hardware through the healing femoral shaft fracture. Total knee arthroplasty. No acute findings. IMPRESSION: Evidence of hardware fixation of the femoral fracture indicating stable alignment and progressive osseous bridging. Electronically signed: Jose Juan Sandoval. Transcribed by: [email or web address], User Resident: Electronically Signed by: JOSE JUAN SANDOVAL @ 07/13/2021 10:29 AM Normal [facility] Comment on above: Order Comment: Evalu ate FEMUR RIGHT 2 Son 05-23-19 22 FEMUR RIGHT 2 VWS [facility] Department of Radiology [address] [place] [phone] Patient Name: KEILA RICHARDSON : 1970 Sex: F Age: Race: White Pt. Location: Patient Status: O Ordered Date: 05/22/2021 10:45:00 AM Completed Date: 05/22/2021 10:45 AM Requesting Provider: CHARLY FARIAS Attending Provider: CHARLY FARIAS Report Copy To: Signs & Symptoms: S72.91XA Unsp fracture of right femur, init for clos fx I10 History: Comments: Evaluate Exam: FEMUR RIGHT 2 S FEMUR RIGHT 2 S 05/22/2021 10:45 AM CLINICAL INDICATIONS: S72.91XA Unsp fracture of right femur, init for clos fx I10 TECHNOLOGIST COMMENTS: ortho follow up. surgery to the right femur 04/10/21 QUESTION FOR THE RADIOLOGIST: Evaluate PROTOCOL: AP(PA) and Lateral views were obtained. COMPARISON: 04/24/2021 FINDINGS: Dynamic hip screw with intramedullary lópez in the right femur transfixing a distal femoral shaft fracture appears unchanged. Lateral plate-screw fixation of the distal femur appears unchanged. There is no evidence of hardware malfunction. There is ongoing healing of a distal shaft fracture. Fracture lucencies remain visible. Status post total knee arthroplasty. IMPRESSION: * Unchanged surgical hardware without evidence of malfunction. * Ongoing healing of distal femoral shaft fracture in unchanged alignment. Approved by:Edmar Gonzalez05/22/2021 11:43 AM. I, Magy Paz,have reviewed the image(s) and agree with the findings in this report. Electronically signed: Magy Paz. Transcribed by: [email or web address], User Resident: EDMAR BROWN Electronically Signed by: MAGY PAZ @ 05/22/2021 03:10 PM I personally read this/these film(s) with this resident Normal [facility] Comment on above: Order Comment: Evalu ate FEMUR RIGHT 2 Son 04-25-19 22 FEMUR RIGHT 2 S [facility] Department of Radiology [address] [place] [phone] Patient Name: KEILA RICHARDSON : 1970 Sex: F Age: Race: White Pt. Location: 84 Patient Status: O Ordered Date: 04/24/2021 11:20:00 AM Completed Date: 04/24/2021 11:23 AM Requesting Provider: CHARLY FARIAS Attending Provider: CHARLY FARIAS Report Copy To: MARIBELL ALVAREZ Signs & Symptoms: S72.91XA Unsp fracture of right femur, init for clos fx I10 History: [place] Comments: Exam: FEMUR RIGHT 2 VWS FEMUR RIGHT 2 VWS CLINICAL INFORMATION: Patient states having ortho follow up for surgery to right femur. Surgery was on 04/10/21.. S72.91XA Unsp fracture of right femur, init for clos fx I10. IMPRESSION: 2 views compared with 04/10/2021. Dynamic hip screw and intramedullary lópez identified within the femur, lateral plate and screw fixation noted which is unchanged. Routine healing of distal femur fracture. Knee arthroplasty noted. Electronically signed: German Gamble. Transcribed by: [email or web address], User Resident: Electronically Signed by: GERMAN GAMBLE @ 04/24/2021 12:18 PM Normal [facility] HIP LEFT 1 OR 2 VWS WITH PEL VISon 04-14-2021 HIP LEFT 1 OR 2 VWS WITH PELVIS [facility] Department of Radiology [address] [place] [id number] Patient Name: KEILA RICHARDSON : 1970 Sex: F Age: Race: White Pt. Location: [id number] Patient Status: I Ordered Date: 04/14/2021 7:55:00 AM Completed Date: 04/14/2021 10:21 AM Requesting Provider: CHRISS CHERY Attending Provider: CHARLY FARIAS Report Copy To: Signs & Symptoms: Pain ( specify Location) History: Comments: post op pain Exam: HIP LEFT 1 OR 2 VWS WITH PELVIS HIP LEFT 1 OR 2 VWS WITH PELVIS 04/14/2021 10:21 AM CLINICAL INDICATIONS: Pain ( specify Location) TECHNOLOGIST COMMENTS: Patient has left hip pain and difficulty moving. History bone graft in pelvis QUESTION FOR THE RADIOLOGIST: post op pain PROTOCOL: AP(PA) and Lateral views were obtained. COMPARISON: None FINDINGS: Postoperative changes of right femur internal fixation. Severe left hip osteoarthrosis with joint space loss and subchondral sclerosis. No definitive displaced fracture line, though soft tissue x-ray beam attenuation somewhat limits sensitivity. Ilioischial and ileal pectineal lines appear intact. Degenerative changes of the sacroiliac joints. IMPRESSION: While limited due to soft tissue attenuation and severe degenerative changes, no convincing acute displaced left hip fracture. Consider follow-up CT depending on level of clinical concern given these limitations. Electronically signed: ALEX PRATT. Transcribed by: [email or web address], User Resident: Electronically Signed by: ALEX PRATT @ 04/14/2021 11:40 AM Normal [facility] Comment on above: Order Comment: Evalu ate BASIC METABOLIC PANELon 03-0 Calcium [Mass/Vol] 8.3 mg/dL Low 8.6-10.3 [facility] Comment on above: Order Comment: No: D o not add to previous draw Performed By: #### 0 0071 #### [facility] [address] [place] [address], [place] Chloride [Moles/Vol] 101 mmol/L Normal 98-107 [facility] Comment on above: Order Comment: No: D o not add to previous draw Performed By: #### 0 0071 #### [facility] [address] [place] [address], [place] CO2 [Moles/Vol] 27 mmol/L Normal 21-31 [facility] Comment on above: Order Comment: No: D o not add to previous draw Performed By: #### 0 0071 #### [facility] [address] [place] [address], [place] Creatinine [Mass/Vol] 0.70 mg/dL Normal 0.60-1.20 [facility] Comment on above: Order Comment: No: D o not add to previous draw Performed By: #### 0 0071 #### [facility] [address] [place] [address], [place] GFR/1.73 sq M.predicted among blacks MDRD (S/P/Bld) [Vol rate/Area] mL/min/{1.73_m2} Normal >60 [facility] Comment on above: Order Comment: No: D o not add to previous draw Performed By: #### 0 0071 #### [facility] [address] [place] [address], [place] GFR/1.73 sq M.predicted among non-blacks MDRD (S/P/Bld) [Vol rate/Area] mL/min/{1.73_m2} Normal >60 [facility] Comment on above: Order Comment: No: D o not add to previous draw Performed By: #### 0 0071 #### [facility] [address] [place] [address], [facility] Glucose [Mass/Vol] 116 mg/dL High 70-100 [facility] Comment on above: Order Comment: No: D o not add to previous draw Performed By: #### 0 0071 #### [facility] [address] [place] [address], [place] Potassium [Moles/Vol] 4.1 mmol/L Normal 3.5-5.1 [facility] Comment on above: Order Comment: No: D o not add to previous draw Performed By: #### 0 0071 #### [facility] [address] [place] [address], [place] Sodium [Moles/Vol] 136 mmol/L Normal 136-145 [facility] Comment on above: Order Comment: No: D o not add to previous draw Performed By: #### 0 0071 #### [facility] [address] [place] [address], [facility] Urea nitrogen [Mass/Vol] 16 mg/dL Normal 7-25 [facility] Comment on above: Order Comment: No: D o not add to previous draw Performed By: #### 0 0071 #### [facility] [address] [place] [address], [facility] CBC COMPLETE BLOOD COUNTon 0 - Erythrocyte distribution width (RBC) [Ratio] 13.1 % Normal 11.5-15.0 [facility] Comment on above: Order Comment: Evalu ate Performed By: #### 5 0608 ####[facility] [place] [address], [facility] Hematocrit (Bld) [Volume fraction] 33.2 % Low 36.0-45.0 [facility] Comment on above: Order Comment: Evalu ate Performed By: #### 5 0608 ####[facility] [id number], [facility] Hemoglobin (Bld) [Mass/Vol] 11.6 g/dL Low 12.0-15.0 [facility] Comment on above: Order Comment: Evalu ate Performed By: #### 5 0608 ####[facility] MCH (RBC) [Entitic mass] 31.5 pg Normal 27.0-33.0 [facility] Comment on above: Order Comment: Evalu ate Performed By: #### 5 0608 ####[facility] MCHC (RBC) [Mass/Vol] 34.9 g/dL Normal 32.0-35.0 [facility] Comment on above: Order Comment: Evalu ate Performed By: #### 5 0608 ####[facility] MCV (RBC) [Entitic vol] 90.2 fL Normal 82.0-98.0 [facility] Comment on above: Order Comment: Evalu ate Performed By: #### 5 0608 ####[facility] Nucleated RBC/100 WBC (Bld) [Ratio] 0 % Normal 0-0 [facility] Comment on above: Order Comment: Evalu ate Performed By: #### 5 0608 ####[facility] PLAT CNT 352 10*3/uL Normal 150-400 [facility] Comment on above: Order Comment: Evalu ate Performed By: #### 5 0608 ####[facility] [place] [address] RBC (Bld) [#/Vol] 3.68 10*6/uL Low 3.80-5.00 [facility] Comment on above: Order Comment: Evalu ate Performed By: #### 5 0608 ####[facility] WBC (Bld) [#/Vol] 11.61 10*3/uL High 4.00-10.60 [facility] Comment on above: Order Comment: Evalu ate Performed By: #### 5 0608 ####[facility] Operative Reporton 2 Operative Report MR#: [id number] I [facility] Pt. Name: Keila Richardson Room #: [id number] Discharge Date: Birthdate: 1970 OPERATIVE REPORT DATE OF SURGERY: 04/10/2021 SURGEON: Charly Farias M.D. 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 PROCEDURE PERFORMED: 1. 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-sided iliac crest bone graft harvest as well as revision fixation 2. Hardware removal right femur ANESTHESIA: General. ESTIMATED BLOOD LOSS: 500 cc. COMPLICATIONS: None. IMPLANTS: 1. Synthes 5.0 distal interlocking screws x2. 2. Synthes 3.5/4.5 metaphyseal LCP plate with associated 3.5 cortical and 4.5 locking screws. CULTURES: One deep tissue specimen for culture and sensitivity. ANESTHESIA: General. INDICATIONS: The patient is a 50-year-old female who sustained a right distal 3rd femoral shaft fracture and was treated at an outside facility with open reduction and cephalomedullary nailing in 2020. She went onto develop a nonunion despite vitamin D supplementation and bone stimulator and the decision was made to proceed with operative intervention as it had been over 6 months since her index procedure with no progression of healing and with clinical signs of nounion. The patient agreed to all risks and expected benefits of having the procedure done prior to entering the operative suite. PROCEDURE IN DETAIL: The patient was seen in the preoperative holding area. The right thigh was marked by me as was the right iliac crest region. She was taken back to the operating room where general anesthesia was smoothly induced. A Israel catheter was placed. Right lower extremity was then prepped and draped in usual sterile fashion. A time-out was performed using 2 separate patient identifiers. Preoperative antibiotics were administered intravenously. We began the procedure by utilizing x-ray to ibrahima out her incision utilizing the previous laterally based incision and continued this distally as well as proximally. We made a subvastus approach after incising through the iliotibial band and cauterized all brisk bleeding vessels. We placed appropriate retractors and then had access to her broken distal interlocking screws as well as the cables that were present. We did remove the 2 lateral ends of the interlocking screws without difficulty. The more medial ends were well encased within bone and were not protruding medially and were therefore left. We then went on to place 2 distal interlocking screws using perfect gulkana technique in new screw holes both of which were drilled for and placed by hand with excellent purchase. At this point, we then removed her previous cables and had access to the nonunion site. This was thoroughly debrided with curette, a jerome and a rongeur to remove all fibrous tissue from the nonunion site. Of note, all bony surfaces were bleeding and viable including the butterfly fragment medially, which was held in place with the previous cables. The cortex about the nonunion site was also feathered to allow more bleeding bone surface to incorporate the graft. After performing a thorough debridement of the nonunion site anteriorly, laterally and as far medially as possible, we then turned our attention to our bone graft harvest proximally. We made a 3 cm incision just posterior to the anterior superior iliac spine and dissected down through the soft tissues. We identified the aponeurosis between the abductor fascia and the abdominal muscles and this plane was developed and we had access to the iliac crest, taking care that we were staying several centimeter posterior to the anterior superior iliac spine. We introduced the trocar for the Avitus bone graft harvest system and we then had access to the iliac crest cancellous bone and we went on to harvest approximately 20 cc of cancellous bone and significant amount of blood. I also utilized a curette to remove additional bone for a total volume of approximately 30 cc of iliac crest bone graft. This was mixed together with 30 cc of allograft as well as 1 g of vancomycin powder. We then thoroughly irrigated out the femoral nonunion site and of note, we did take a culture from the site, but there was no evidence of any clinical infection. We then packed bone graft firmly within the entire nonunion site obtaining excellent fill with our bone graft harvest. A 3.5/4.5 Synthes metaphyseal plate was then contoured and placed along the lateral surface of the bone, taking care to place a plate anteriorly along the distal aspect and posteriorly on the proximal aspect in order to allow us to shoot screws around the nail. We then went on to place one 4.5 screw proximally and one 3.5 screw distally to bring the plate down to bone and then went onto place multiple 4.5 cortical (more content not included)... Normal [facility] PORTABLE TIBIA FIBULA LEFTon 04-11-2021 PORTABLE TIBIA FIBULA LEFT [facility] Department of Radiology [address] [place] [id number] Patient Name: KEILA RICHARDSON : 1970 Sex: F Age: Race: White Pt. Location: [id number] Patient Status: I Ordered Date: 04/11/2021 7:45:00 PM Completed Date: 04/11/2021 09:02 PM Requesting Provider: BARBARA THOMAS Attending Provider: CHARLY FARIAS Report Copy To: Signs & Symptoms: Pain History: Comments: evaluate for FX, AP/Lat Exam: PORTABLE TIBIA FIBULA LEFT PORTABLE TIBIA FIBULA LEFT 04/11/2021 9:02 PM CLINICAL INDICATIONS: Pain TECHNOLOGIST COMMENTS: patient states having left leg pain. QUESTION FOR THE RADIOLOGIST: evaluate for FX, AP/Lat PROTOCOL: AP(PA) and Lateral views were obtained. COMPARISON: None FINDINGS: Total knee prostheses without evidence of acute complication. Heterotopic calcification, possibly sequela of calcified injection granulomas versus calcified phleboliths. No acute fracture or dislocation. Alignment is preserved. No significant soft tissue swelling. IMPRESSION: No acute osseous abnormality. Approved by:Karla Niño04/12/2021 8:36 AM. I, Gordon Dumont,have reviewed the image(s) and agree with the findings in this report. Electronically signed: Gordon Dumont. Transcribed by: [email or web address], User Resident: KARLA REECE Electronically Signed by: GORDON DUMONT @ 04/12/2021 02:58 PM I personally read this/these film(s) with this resident Normal [facility] Comment on above: Order Comment: Evalu ate *ANAEROBIC CULTUREon 022 *ANAEROBIC CULTURE Clinical Report: (D) Specimen/Source: TISSUE/INTRAOP SPEC Collected: 04/10/2021 13:35 Status: Final Last Updated: 04/15/2021 08:17 (1) 1. Right femur non union site CULT RES (Final) No Anaerobes Isolated 5 Days Normal [facility] Comment on above: Order Comment: Evalu ate Performed By: #### 3 0312 ####[facility] *TISSUE CULTUREon 04-10-2021 *TISSUE CULTURE Clinical Report: (D) Specimen/Source: TISSUE/INTRAOP SPEC Collected: 04/10/2021 13:35 Status: Final Last Updated: 04/15/2021 08:00 (1) 1. Right femur non union site GRAM (Final) No Polys Seen No Bacteria Seen CULT RES (Final) No Growth Day 5 Normal [facility] Comment on above: Order Comment: 1. Ri ght femur non union site Performed By: #### 3 0338 #### [facility] [address] BASIC METABOLIC PANELon 03-0 Calcium [Mass/Vol] 8.6 mg/dL Normal 8.6-10.3 [facility] Comment on above: Order Comment: Evalu ate Performed By: #### 0 0071 ####[facility] [place] [address], [facility] Chloride [Moles/Vol] 103 mmol/L Normal 98-107 [facility] Comment on above: Order Comment: Evalu ate Performed By: #### 0 0071 ####[facility] [place] [address], [place] CO2 [Moles/Vol] 25 mmol/L Normal 21-31 [facility] Comment on above: Order Comment: Evalu ate Performed By: #### 0 0071 ####[facility] [place] [address], [facility] Creatinine [Mass/Vol] 0.68 mg/dL Normal 0.60-1.20 [facility] Comment on above: Order Comment: Evalu ate Performed By: #### 0 0071 ####[facility] [place] [address], [place] GFR/1.73 sq M.predicted among blacks MDRD (S/P/Bld) [Vol rate/Area] mL/min/{1.73_m2} Normal >60 [facility] Comment on above: Order Comment: Evalu ate Performed By: #### 0 0071 ####[facility] [place] [address], [facility] GFR/1.73 sq M.predicted among non-blacks MDRD (S/P/Bld) [Vol rate/Area] mL/min/{1.73_m2} Normal >60 [facility] Comment on above: Order Comment: Evalu ate Performed By: #### 0 0071 ####[facility] [id number], [place] Glucose [Mass/Vol] 154 mg/dL High 70-100 [facility] Comment on above: Order Comment: Evalu ate Performed By: #### 0 0071 ####[facility] [facility] [place] [address], [facility] Potassium [Moles/Vol] 4.0 mmol/L Normal 3.5-5.1 [facility] Comment on above: Order Comment: Evalu ate Performed By: #### 0 0071 ####[facility] [facility] [place] [address], [facility] Sodium [Moles/Vol] 138 mmol/L Normal 136-145 [facility] Comment on above: Order Comment: Evalu ate Performed By: #### 0 0071 ####[facility] Urea nitrogen [Mass/Vol] 15 mg/dL Normal 7-25 [facility] Comment on above: Order Comment: Evalu ate Performed By: #### 0 0071 ####[facility] FEMUR RIGHT 2 Son 04-11-19 22 FEMUR RIGHT 2 S [facility] Department of Radiology [address] [place] [address] Patient Name: KEILA RICHARDSON : 1970 Sex: F Age: Race: White Pt. Location: OUTP Patient Status: I Ordered Date: 04/10/2021 12:30:00 PM Completed Date: 04/10/2021 07:04 PM Requesting Provider: CHARLY FARIAS Attending Provider: CHARLY FARIAS Report Copy To: Signs & Symptoms: RT DISTAL FEMUR REVISION ORIF History: Comments: T DISTAL FEMUR REVISION ORIF Exam: FEMUR RIGHT 2 VWS FEMUR RIGHT 2 VWS 04/10/2021 7:04 PM CLINICAL INDICATIONS: RT DISTAL FEMUR REVISION ORIF TECHNOLOGIST COMMENTS: Dr. Farias used 2 minutes and 47 seconds of fluoro time for an intra-op ORIF Right Femur. 17.49 mGy 40 Images QUESTION FOR THE RADIOLOGIST: T DISTAL FEMUR REVISION ORIF PROTOCOL: AP(PA) and Lateral views were obtained. COMPARISON: Femur radiographs March 22, 2021 IMPRESSION: 2 minutes 47 seconds of fluoroscopy time, 17.49 mGy. 40 images during revision open reduction internal fixation of femoral intramedullary nail. Of note portions of the distal retention screws have since been withdrawn [residual terminal aspect is retained], 2 new distal retention screws have now been placed with additional lateral buttress plate and screw fixation. No interval complication is seen. Please refer to operative note for detailed surgical findings. Electronically signed: Luis Miguel Sheikh. Transcribed by: [email or web address], User Resident: Electronically Signed by: LUIS MIGUEL SHEIKH @ 04/10/2021 08:10 PM Normal [facility] Comment on above: Order Comment: T DIS GUIDO FEMUR REVISION ORIF POC GLUCOSE LABon 04-10-2021 Glucose [Mass/Vol] 92 mg/dL Normal 70-100 [facility] Comment on above: Performed By: #### 8 [id number] #### [address] PORTABLE FEMUR RIGHT 2 [facility] 04-10-2021 PORTABLE FEMUR RIGHT 2 [facility] Department of Radiology [address] [place] [id number] Patient Name: KEILA RICHARDSON : 1970 Sex: F Age: Race: White Pt. Location: OUTP Patient Status: I Ordered Date: 04/10/2021 5:30:00 PM Completed Date: 04/10/2021 06:54 PM Requesting Provider: CHRISS CHERY Attending Provider: CHARLY FARIAS Report Copy To: Signs & Symptoms: Pain History: Comments: Hardware Evaluation, post op eval, pt in pacu Exam: PORTABLE FEMUR RIGHT 2 VWS PORTABLE FEMUR RIGHT 2 VWS 04/10/2021 6:54 PM CLINICAL INDICATIONS: Pain TECHNOLOGIST COMMENTS: Hardware evaluation post op right femur. QUESTION FOR THE RADIOLOGIST: Hardware Evaluation, post op eval, pt in pacu PROTOCOL: AP(PA) and Lateral views were obtained. COMPARISON: April 10, 2021 intraoperative images IMPRESSION: Complex right femoral construct with intramedullary nail, femoral neck screw, lateral plate and screw fixation, total knee arthroplasty. No hardware complication. Expected postoperative changes including soft tissue emphysema, heterogeneity. Cutaneous keysha Electronically signed: Luis Miguel Sheikh. Transcribed by: [email or web address], User Resident: Electronically Signed by: LUIS MIGUEL SHEIKH @ 04/10/2021 08:04 PM Normal [facility] Comment on above: Order Comment: Evalu ate TYPE AND SCREENon 04-10-2021 ABO INTERPRETATION O Normal [facility] Comment on above: Performed By: #### 6 2586 ####[facility] [address], [facility] RH INTERPRETATION Positive Normal [facility] Comment on above: Performed By: #### 6 2586 ####[facility], [place] [id number] [place] [address] C-Reactive Proteinon 022 CRP IV 1.3 mg/dl Normal <5.0 [facility] Specialist Comment on above: Performed By: #### C BCAD, LIPD, CMP, VITD, CRP, ESR #### [facility] [address] [place], [place] [id number] Complete Blood Count with Au to Diffon 03-26-2021 Basophils (Bld) [#/Vol] 0.02 10*3/uL Normal 0.00-0.20 [facility] Specialist Comment on above: Performed By: #### C BCAD, LIPD, CMP, VITD, CRP, ESR #### [facility] [address] [place], [place] [id number] Basophils/100 WBC (Bld) 0.3 % Normal [facility] Specialist Comment on above: Performed By: #### C BCAD, LIPD, CMP, VITD, CRP, ESR #### [facility] [address] [place], [place] [id number] Eosinophils (Bld) [#/Vol] 0.26 10*3/uL Normal 0.02-0.50 [facility] Specialist Comment on above: Performed By: #### C BCAD, LIPD, CMP, VITD, CRP, ESR #### [facility] [address] [place], [place] [id number] Eosinophils/100 WBC (Bld) 4.0 % Normal [facility] Specialist Comment on above: Performed By: #### C BCAD, LIPD, CMP, VITD, CRP, ESR #### [facility] [address] [place], [place] [id number] Erythrocyte distribution width (RBC) [Ratio] 13.2 % Normal 11.0-15.0 [facility] Specialist Comment on above: Performed By: #### C BCAD, LIPD, CMP, VITD, CRP, ESR #### [facility] [address] [place], [place] [id number] Hematocrit (Bld) [Volume fraction] 40.1 % Normal 35.0-47.0 [facility] Specialist Comment on above: Performed By: #### C BCAD, LIPD, CMP, VITD, CRP, ESR #### [facility] [address] [place], [place] [id number] Hemoglobin (Bld) [Mass/Vol] 13.0 g/dL Normal 11.6-15.5 [facility] Specialist Comment on above: Performed By: #### C BCAD, LIPD, CMP, VITD, CRP, ESR #### [facility] [address] [place], [place] [id number] Lymphocytes (Bld) [#/Vol] 2.6 10*3/uL Normal 0.9-3.9 [facility] Specialist Comment on above: Performed By: #### C BCAD, LIPD, CMP, VITD, CRP, ESR #### [facility] [address] [place], [place] [id number] Lymphocytes/100 WBC (Bld) 39.4 % Normal [facility] Specialist Comment on above: Performed By: #### C BCAD, LIPD, CMP, VITD, CRP, ESR #### [facility] [address] [place], [place] [id number] MCH (RBC) [Entitic mass] 29.9 pg Normal 27.0-33.0 [facility] Specialist Comment on above: Performed By: #### C BCAD, LIPD, CMP, VITD, CRP, ESR #### [facility] [address] [place], [place] [id number] MCHC (RBC) [Mass/Vol] 32.4 g/dL Normal 32.0-36.0 [facility] Comment on above: Performed By: #### C BCAD, LIPD, CMP, VITD, CRP, ESR #### [facility] [address] [place], [place] [id number] MCV (RBC) [Entitic vol] 92 fL Normal 80-100 [facility] Specialist Comment on above: Performed By: #### C BCAD, LIPD, CMP, VITD, CRP, ESR #### [facility] [address] [place], [place] [id number] Monocytes (Bld) [#/Vol] 0.5 10*3/uL Normal 0.2-0.9 [facility] Specialist Comment on above: Performed By: #### C BCAD, LIPD, CMP, VITD, CRP, ESR #### [facility] [address] [place], [place] [id number] Monocytes/100 WBC (Bld) 7.7 % Normal [facility] Specialist Comment on above: Performed By: #### C BCAD, LIPD, CMP, VITD, CRP, ESR #### [facility] [address] [place], [place] [id number] Neutrophils (Bld) [#/Vol] 3.1 10*3/uL Normal 1.5-7.8 [facility] Specialist Comment on above: Performed By: #### C BCAD, LIPD, CMP, VITD, CRP, ESR #### [facility] [address] [place], [place] [id number] Neutrophils/100 WBC (Bld) 48.3 % Normal [facility] Specialist Comment on above: Performed By: #### C BCAD, LIPD, CMP, VITD, CRP, ESR #### [facility] [address] [place], [place] [id number] Platelet mean volume (Bld) [Entitic vol] 9.30 fL Normal 7.50-12.50 [facility] Comment on above: Performed By: #### C BCAD, LIPD, CMP, VITD, CRP, ESR #### [facility] [address] [place], [place] [id number] Platelets (Bld) [#/Vol] 354 10*3/uL Normal 140-400 [facility] Specialist Comment on above: Performed By: #### C BCAD, LIPD, CMP, VITD, CRP, ESR #### [facility] [address] [place], [place] [id number] RBC (Bld) [#/Vol] 4.35 10*6/uL Normal 3.90-5.20 [facility] Specialist Comment on above: Performed By: #### C BCAD, LIPD, CMP, VITD, CRP, ESR #### [facility] [address] [place], [place] [id number] RDW-SD 44.6 fL Normal 37.0-50.0 [facility] Specialist Comment on above: Performed By: #### C BCAD, LIPD, CMP, VITD, CRP, ESR #### [facility] [address] [place], [place] [id number] WBC (Bld) [#/Vol] 6.5 10*3/uL Normal 3.8-11.0 Gilberto hutchinson [place] [facility] Supervisor Comment on above: Performed By: #### C BCAD, LIPD, CMP, VITD, CRP, ESR #### [facility] [address] [place], [place] [id number] Comprehensive Metabolic Pane tripp 03-26-2021 Albumin [Mass/Vol] 4.1 g/dL Normal 3.6-5.1 Gilberto hutchinson [place] [facility] Super[facility] Comment on above: Performed By: #### C BCAD, LIPD, CMP, VITD, CRP, ESR #### [facility] [address] [place], [place] [id number] Albumin/Globulin [Mass ratio] 1.6 {ratio} Normal 1.0-2.5 [facility] Service Delivery Supervisor Comment on above: Performed By: #### C BCAD, LIPD, CMP, VITD, CRP, ESR #### [facility] [address] [place], [place] [id number] ALP [Catalytic activity/Vol] 96 U/L Normal 35-119 [facility] Service Delivery Supervisor Comment on above: Performed By: #### C BCAD, LIPD, CMP, VITD, CRP, ESR #### [facility] [address] [place], [place] [id number] ALT [Catalytic activity/Vol] 22 U/L Normal 6-33 [facility] Service Delivery Supervisor Comment on above: Result Comment: 01/09 Female reference range changed. Performed By: #### C BCAD, LIPD, CMP, VITD, CRP, ESR #### [facility] [address] [place], [place] [id number] Anion gap [Moles/Vol] 15 mmol/L Normal 12-20 [facility] Specialist Comment on above: Result Comment: Effe ctive 02/14/2019 reference range changed. Performed By: #### C BCAD, LIPD, CMP, VITD, CRP, ESR #### [facility] [address] [place], [place] [id number] AST [Catalytic activity/Vol] 22 U/L Normal 9-34 [facility] Comment on above: Performed By: #### C BCAD, LIPD, CMP, VITD, CRP, ESR #### [facility] [address] [place], [place] [id number] BUN/CREA 25 Ratio High 6-22 [facility] Comment on above: Performed By: #### C BCAD, LIPD, CMP, VITD, CRP, ESR #### [facility] [address] [place], [place] [id number] Calcium [Mass/Vol] 10.1 mg/dL Normal 8.6-10.2 [facility] Comment on above: Performed By: #### C BCAD, LIPD, CMP, VITD, CRP, ESR #### [facility] [address] [place], [place] [id number] Chloride [Moles/Vol] 104 mmol/L Normal 98-107 [facility] Comment on above: Performed By: #### C BCAD, LIPD, CMP, VITD, CRP, ESR #### [facility] [address] [place], [place] [id number] CO2 [Moles/Vol] 27 mmol/L Normal 20-31 [facility] Comment on above: Performed By: #### C BCAD, LIPD, CMP, VITD, CRP, ESR #### [facility] [address] [place], [place] [id number] Creatinine [Mass/Vol] 0.7 mg/dL Normal 0.6-1.4 [facility] Comment on above: Performed By: #### C BCAD, LIPD, CMP, VITD, CRP, ESR #### [facility] [address] [place], [place] [id number] eGFRAA 104 mL/min/1.73m2 Normal >60 [facility] Comment on above: Performed By: #### C BCAD, LIPD, CMP, VITD, CRP, ESR #### [facility] [address] [place] [id number] eGFRNAA 86 mL/min/1.73m2 Normal >60 [facility] Specialist Comment on above: Performed By: #### C BCAD, LIPD, CMP, VITD, CRP, ESR #### [facility] [address] [place], [place] [id number] Globulin (S) [Mass/Vol] 2.6 g/dL Normal 1.9-3.7 [facility] Specialist Comment on above: Performed By: #### C BCAD, LIPD, CMP, VITD, CRP, ESR #### [facility] [address] [place], [place] [id number] Glucose [Mass/Vol] 90 mg/dL Normal 65-99 [facility] Service Delivery Supervisor Comment on above: Result Comment: For FASTING Glucose --- ADA reference ranges: Normal 65-99 mg/dl Prediabetes 100-125 Diabetes >/= 126 Performed By: #### C BCAD, LIPD, CMP, VITD, CRP, ESR #### [facility] [address] [place] [id number] Potassium [Moles/Vol] 4.7 mmol/L Normal 3.5-5.5 [facility] Comment on above: Performed By: #### C BCAD, LIPD, CMP, VITD, CRP, ESR #### [facility] [address] [place], [place] [id number] Protein [Mass/Vol] 6.7 g/dL Normal 6.1-8.1 [facility] Specialist Comment on above: Performed By: #### C BCAD, LIPD, CMP, VITD, CRP, ESR #### [facility] [address] [place], [place] [id number] Sodium [Moles/Vol] 142 mmol/L Normal 135-146 [facility] Service Delivery Supervisor Comment on above: Performed By: #### C BCAD, LIPD, CMP, VITD, CRP, ESR #### [facility] [address] [place], [place] [id number] TBIL <0.3 Normal [facility] Specialist Comment on above: Performed By: #### C BCAD, LIPD, CMP, VITD, CRP, ESR #### [facility] [address] [place], [place] [id number] Urea nitrogen [Mass/Vol] 18 mg/dL Normal 7-25 [facility] Service Delivery Supervisor Comment on above: Performed By: #### C BCAD, LIPD, CMP, VITD, CRP, ESR #### [facility] [address] [place], [place] [id number] Lipid Panelon 03-26-2021 Cholesterol [Mass/Vol] 217 mg/dL High 125-[address] [facility] Comment on above: Result Comment: Low risk < 200mg/dL Borderline risk 201-239 mg/dl High risk > or equal to 240 Performed By: #### C BCAD, LIPD, CMP, VITD, CRP, ESR #### [facility] [address] [place] [id number] Cholesterol in HDL [Mass/Vol] 57 mg/dL Normal >40 [facility] Service Delivery Supervisor Comment on above: Result Comment: High Cardiovascular Risk HDL <40 mg/dL Low Cardiovascular Risk HDL > or equal to 60 mg/dl Performed By: #### C BCAD, LIPD, CMP, VITD, CRP, ESR #### [facility] [address] [place], [place] [id number] Cholesterol in LDL [Mass/Vol] 134 mg/dL Normal [facility] Specialist Comment on above: Result Comment: LDL ATP III CLASSIFICATION LDL less than 100 mg/dl Optimal LDL 100-129 mg/dl Near or above optimal LDL 130-159 Borderline high LDL 160-189 High LDL greater than 189 mg/dl Very High Performed By: #### C BCAD, LIPD, CMP, VITD, CRP, ESR #### [facility] [address] [place], [place] [id number] Cholesterol in VLDL [Mass/Vol] 26 mg/dL Normal [facility] Specialist Comment on above: Performed By: #### C BCAD, LIPD, CMP, VITD, CRP, ESR #### [facility] [address] [place] [id number] Cholesterol.total/Chol esterol in HDL [Mass ratio] 4 {ratio} Normal [facility] Specialist Comment on above: Performed By: #### C BCAD, LIPD, CMP, VITD, CRP, ESR #### [facility] [address] [place] [id number] Triglyceride [Mass/Vol] 128 mg/dL Normal 30-150 [facility] Service Delivery Supervisor Comment on above: Result Comment: TRIG ATPIII CLASSIFICATIONS TRIG less than 150 mg/dl Normal TRIG 150-199 mg/dl Borderline High TRIG 200-500 mg/dl High TRIG greather than 500 mg/dl Very High Performed By: #### C BCAD, LIPD, CMP, VITD, CRP, ESR #### [facility] [address] [place], [place] [id number] RBC Sedimentation Rateon ESR (Bld) [Velocity] 44.00 mm/h High 0.00-20.00 [facility] Specialist Comment on above: Performed By: #### C BCAD, LIPD, CMP, VITD, CRP, ESR #### [facility] [address] [place] [id number] Vitamin D 25-OHon 03-26-2021 VIT D 25 OH 56 ng/ml Normal >29 [facility] Specialist Comment on above: Result Comment: Cindy min D Status Deficiency <20 ng/mL Insufficiency 20-29 ng/mL Optimal 30-100 ng/mL Possible Toxicity >=150 ng/mL Performed By: #### C BCAD, LIPD, CMP, VITD, CRP, ESR #### [facility] [address] [place] [id number] FEMUR RIGHT 2 [facility] 03-22-19 22 FEMUR RIGHT 2 [facility] Department of Radiology [address] [place] [id number] Patient Name: KEILA RICHARDSON : 1970 Sex: F Age: Race: White Pt. Location: Patient Status: O Ordered Date: 03/22/2021 2:25:00 PM Completed Date: 03/22/2021 02:22 PM Requesting Provider: CHARLY FARIAS Attending Provider: CHARLY FARIAS Report Copy To: Signs & Symptoms: S72.401A Unsp fracture of lower end of right femur, init for clos fx I10 History: Comments: Evaluate Exam: FEMUR RIGHT 2 S FEMUR RIGHT 2 S CLINICAL INFORMATION: ortho follow up. right femur surgery july 2020. S72.401A Unsp fracture of lower end of right femur, init for clos fx I10. IMPRESSION: 4 views compared with 01/18/2021. Dynamic hip screw with intramedullary lópez stabilizing a distal femur fracture with cerclage wires. Routine healing with callus. Distal screws again appear fractured. There is a knee arthroplasty. Mild osteopenia. Electronically signed: German Gamble. Transcribed by: [id number], User Resident: Electronically Signed by: GERMAN GAMBLE @ 03/22/2021 03:08 PM Normal [facility] Comment on above: Order Comment: Evalu ate FEMUR RIGHT 2 [facility] 01-19-20 21 FEMUR RIGHT 2 S [facility] Department of Radiology [address] [place] [id number] Patient Name: KEILA RICHARDSON : 1970 Sex: F Age: Race: White Pt. Location: Patient Status: D Ordered Date: 01/18/2021 2:20:00 PM Completed Date: 01/18/2021 02:26 PM Requesting Provider: CHARLY FARIAS Attending Provider: CHARLY FARIAS Report Copy To: Signs & Symptoms: S72.401A Unsp fracture of lower end of right femur, init for clos fx I10 History: [place] Comments: Evaluate Exam: FEMUR RIGHT 2 S FEMUR RIGHT 2 S 01/18/2021 2:26 PM CLINICAL INDICATIONS: S72.401A Unsp fracture of lower end of right femur, init for clos fx I10 TECHNOLOGIST COMMENTS: History of right femur surgery, ortho follow up. QUESTION FOR THE RADIOLOGIST: Evaluate PROTOCOL: AP(PA) and Lateral views were obtained. COMPARISON: None FINDINGS: Intramedullary lópez. Fractures in satisfactory alignment. Stable placement multiple cerclage wires in transverse orthopedic pins. Right hip prosthesis in satisfactory alignment. IMPRESSION: Satisfactory ORIF Electronically signed: Moncho Beyer. Transcribed by: [email or web address], User Resident: Electronically Signed by: MONCHO BEYER @ 01/20/2021 05:57 PM Normal [facility] Comment on above: Order Comment: Evalu ate XR femur RT 2V*on 11-16-2020 XR femur RT 2V* [facility] [employer] Other XR femur RT 2V* [facility] [employer] Other XR femur RT 2V* [address] [place] [address] [employer] Other XR femur RT 2V* [place] [address] [facility] [employer] Other XR femur RT 2V* XRay Report [place] [employer] Other XR femur RT 2V* Signed [employer] Other XR femur RT 2V* Patient: Sanjana Richardson MR#: [id number] [place] [employer] Other XR femur RT 2V* 09 [employer] Other XR femur RT 2V* : 1970 Acct:[id number] [employer] Other XR femur RT 2V* Age/Sex: 50 / F ADM Date: 11/16/20 [employer] Other XR femur RT 2V* [place] [facility] [place]: Type : [facility] [employer] Other XR femur RT 2V* Attending Dr: Ewelina Arellano MD [employer] Other XR femur RT 2V* Ordering Provider: Shaina Arellano MD [employer] Other XR femur RT 2V* Date of Service: 11/16/20 [employer] Other XR femur RT 2V* XR/XR femur RT 2V*: Other closed fracture of distal end of right femur [employer] Other XR femur RT 2V* with dina [employer] [facility] [employer] Other XR femur RT 2V* Copies to: Shaina Arellano MD [employer] Other XR femur RT 2V* Right femur 11/16/2020. [employer] Other XR femur RT 2V* CLINICAL DATA: Follo w-up right femur fracture repair. [employer] Other XR femur RT 2V* FINDINGS: 2 views of the right femur were obtained and are compared with a prior study 10/05/2020. [employer] Other XR femur RT 2V* There is redemonstra tion of postsurgical changes related to internal fixation of a fracture of the [employer] Other XR femur RT 2V* distal shaft of the femur with a hip screw and long intramedullary lópez as well as cerclage wires. [employer] Other XR femur RT 2V* Both fixation screws at the distal end of the intramedullary lópez are now broken. Overall bony [employer] Other XR femur RT 2V* alignment, however, appears relatively stable. The patient is status post total knee arthroplasty. [employer] Other XR femur RT 2V* The intramedullary r od has moved distally and is now closer to the femoral implant than before. [employer] Other XR femur RT 2V* X R/XR femur RT 2V* [employer] Other XR femur RT 2V* IMPRESSION: Findings as described [employer] Other XR femur RT 2V* Impression dictated by: Kashif Villalobos Jr., M.D.11/16/2020 2:43 PM [employer] Other XR femur RT 2V* Dictation Location: [place] [address] [employer] Other XR femur RT 2V* Transcribed By: SHEREEN 11/16/20 [facility] [employer] Other XR femur RT 2V* Dictated By: Kashif Villalobos Jr, MD 11/16/20 [facility] [employer] Other XR femur RT 2V* Signed By: [employer] [facility] [employer] Other XR femur RT 2V* 11/16/20 [facility] [employer] Other Vital Signs Date Time Vital Sign Value Performing Clinician Facility 08-27-2023 02:46-0400 Body temperature 98 [degF] MD Maribell Alvarez Work Phone: [facility] 08-27-2023 02:46-0400 Diastolic blood pressure 70 mm[Hg] MD Maribell Alvarez Work Phone: [facility] 08-27-2023 02:46-0400 Heart rate 69 /min MD Maribell Alvarez Work Phone: [facility] 08-27-2023 02:46-0400 Respiratory rate 17 /min MD Maribell Alvarez Work Phone: [facility] 08-27-2023 02:46-0400 SaO2% (BldA) [Mass fraction] 96 % MD Maribell Alvarez Work Phone: [facility] 08-27-2023 02:46-0400 Systolic blood pressure 122 mm[Hg] MD Maribell Alvarez Work Phone: [facility] 08-26-2023 21:10-0400 Body height 180.34 cm MD Maribell Alvarez Work Phone: [facility] 08-26-2023 21:10-0400 Body weight 125.8 kg MD Maribell Alvarez Work Phone: [facility] 11-16-2020 12:15-0400 Body height 180.34 cm Shaina Arellano Other [employer] [facility] [employer] Other 11-16-2020 12:15-0400 Body mass index (BMI) [Ratio] 27.05 kg/m2 Shaina Arellano Other [employer] [facility] [employer] Other 11-16-2020 12:15-0400 Body weight 88 kg Shaina Arellano Other [employer] Other Encounters Encounter Date Encounter Type Care Provider Facility Start: 09-28-2023 End: 09-28-2023 ambulatory DAJA PENA Not Available Start: 09-08-2023 End: 09-08-2023 ambulatory MD Maribell Alvarez Work Phone: [facility] Work Phone: Start: 09-08-2023 End: 09-08-2023 Patient encounter procedure MD Maribell Alvarez Work Phone: [facility] Work Phone: Start: 09-08-2023 End: 09-08-2023 Patient encounter procedure MD Maribell Alvarez Work Phone: [facility] Start: 09-08-2023 End: 09-08-2023 ambulatory MD Maribell Alvarez Work Phone: [facility] Work Phone: Start: 08-31-2023 End: 08-31-2023 ambulatory MD Maribell Alvarez Work Phone: [facility] Work Phone: Start: 08-31-2023 End: 08-31-2023 Patient encounter procedure MD Maribell Alvarez Work Phone: [facility] Work Phone: Start: 08-26-2023 End: 08-27-2023 Emergency department patient visit MD Maribell Alvarez Work Phone: [facility] Work Phone: Start: 08-11-2023 End: 08-11-2023 ambulatory MARIBELL ALVAREZ Not Available Start: 08-07-2023 ambulatory Lois Che Facility:[facility] Start: 03-14-2022 End: 03-15-2022 ambulatory [facility] Start: 01-28-2022 End: 01-29-[address] MARIBELL ALVAREZ Facility:[facility] Start: 01-23-2022 End: 01-24-2022 ambulatory ALEXANDRA OROPEZA Facility:[facility] Start: 01-14-2022 ambulatory MONET MULLINS [facility] Start: 01-10-2022 End: 01-11-2022 ambulatory [facility] Start: 12-13-2021 End: 12-14-2021 ambulatory MONET MULLINS [facility] Start: 12-13-2021 End: 12-13-2021 ambulatory MONET MULLINS [facility] Start: 12-11-2021 End: 12-12-2021 ambulatory [facility] Start: 12-06-2021 End: 12-07-2021 Emergency department patient visit ARIANNA ANDERSON [facility] Start: 11-28-2021 Evaluation and management of inpatient [facility] Start: 11-28-2021 Evaluation and management of inpatient [facility] Start: 11-27-2021 Evaluation and management of inpatient [facility] Start: 11-27-2021 Evaluation and management of inpatient [facility] Start: 11-27-2021 Encounter for preprocedural laboratory examination DR DOCTOR ROB [facility] Start: 11-27-2021 End: 11-29-2021 Evaluation and management of inpatient [facility] Start: 11-25-2021 End: 11-26-[address] DOCTOR ROB Facility:[facility] Start: 11-25-2021 End: 11-26-2021 Encounter for preprocedural laboratory examination DR DOCTOR ROB Facility:[facility] Start: 11-04-2021 End: 11-05-[address] MARIBELL ALVAREZ Facility:[facility] Start: 10-29-2021 End: 10-30-2021 ambulatory ALEXANDRA OROPEZA Facility:[facility] Start: 10-29-2021 End: 10-30-[address] DOCTOR ROB Facility:[facility] Start: 08-20-[address] MARIBELL ALVAREZ Facility: [facility] Start: 07-02-2021 End: 07-03-[address] MO PELLETIER Facility:[facility] Start: 03-27-2021 End: 03-27-2021 ambulatory Shaina Arellano Other [employer] Other Start: 03-27-2021 Telephone encounter [facility] Start: 03-26-2021 End: 03-27-[address] MO PELLETIER Facility:[facility] Start: 02-26-2021 End: 02-26-2021 ambulatory Shaina Arellano Other [employer] Other Start: 02-26-2021 Telephone encounter Shainamichael Arellano [facility] Start: 12-19-2020 End: 12-19-2020 ambulatory Shainamichael Arellano Other [employer] Other Start: 12-19-2020 Telephone encounter Shaina Woodward [facility] Start: 12-17-2020 End: 12-17-2020 ambulatory Shaianmichael Arellano Other [employer] Other Start: 12-17-2020 Telephone encounter Shainamichael Arellano [facility] [employer] [facility] Start: 11-30-2020 Office outpatient vi sit 25 minutes Shainamichael Arellano [facility] Start: 11-28-2020 Telephone encounter Shainamichael Arellano [facility] Start: 11-27-2020 Telephone encounter Shainamichael Arellano [facility] Start: 11-22-2020 Telephone encounter Shainamichael Arellano [facility] Start: 11-16-2020 Office outpatient vi sit 25 minutes Shainamichael Arellano [facility] Procedures Date Procedure Procedure Detail Performing Clinician Start: 09-08-2023 Plain X-ray of right shoulder MD Maribell Alvarez Work Phone: Start: 08-26-2023 CT cervical spine wi thout contrast MD Maribell Alvarez Work Phone: Start: 08-26-2023 CT of chest without contrast MD Maribell Alvarez Work Phone: Start: 08-26-2023 Pelvis X-ray MD Maribell baxter Work Phone: Start: 08-26-2023 Plain X-ray of right femur MD Maribell Alvarez Work Phone: Start: 08-26-2023 Plain X-ray of right humerus MD Maribell Alvarez Work Phone: Start: 08-26-2023 Plain X-ray of right shoulder MD Maribell Alvarez Work Phone: Start: 04-10-2021 Antibody screen Comment on above: Performed By: #### [id number] ####[facility]A.[address] Plan of Treatment Date Care Activity Detail Author Start: 09-08-2023 Plain X-ray of right shoulder XR shoulder RT min 2V* [facility] Start: 09-08-2023 XR Shoulder - right Views [facility] Start: 08-26-2023 CT cervical spine without contrast CT cervical spine wo con [facility] Start: 08-26-2023 CT Cervical spine WO contrast [facility] Start: 08-26-2023 CT Chest WO contrast Fi [facility] Start: 08-26-2023 CT of chest without contrast CT chest wo con [facility] Start: 08-26-2023 Pelvis X-ray XR pelvis 1-2V [facility] Start: 08-26-2023 Plain X-ray of right femur XR femur RT 2V* [facility] Start: 08-26-2023 Plain X-ray of right humerus XR humerus RT* [facility] Start: 08-26-2023 Plain X-ray of right shoulder XR shoulder RT min 2V* [facility] Start: 08-26-2023 XR Femur - right 2 Views [facility] Start: 08-26-2023 XR Humerus - right Views [facility] Start: 08-26-2023 XR Pelvis 1 or 2 Views [facility] Start: 08-26-2023 XR Shoulder - right Views [facility] Start: 04-17-2022 ambulatory Ambulatory Facility:H 1 MR Shoulder - right WO contrast [facility] Patient Education Rotator cuff i njury Rib Fracture or Bruised Rib ED Shoulder Pain ED Opioids for Short-Term Treatment of Pain ED [facility] Work Phone: Patient referral [facility] Work Phone: Immunizations Immunization Date Immunization Notes Care Provider Lynn mackey 06-06-2020 COVID-19 Jeromy Castorena (Pfizer) MD Maribell Alvarez Work Phone: [facility] 05-16-2020 COVID-19 Jeromy Castorena (Pfizer) MD Maribell Alvarez Work Phone: [facility] Payers Date Payer Category Payer Self-pay [id number] 2021 Unknown [id number] 1970 Unknown [id number] 2.16.84 [id number] 1970 Unknown [id number] 2.16.84 0.1.843778.3.579.2.593 1970 Unknown [id number] 2.16.84 0.1.520646.3.579.2.593 1970 Unknown [id number] 2.16.84 0.1.049815.3.579.2.593 1970 Unknown [id number] 2.16.84 0.1.026724.3.579.2.593 1970 Unknown [id number] 2.16.84 0.1.936901.3.579.2.593 1970 Unknown [id number] 2.16.84 0.1.874650.3.579.2.593 1970 Unknown [id number] 2.16.84 0.1.968041.3.579.2.593 1970 Unknown [id number] 2.16.84 0.1.784821.3.579.2.593 1970 Unknown [id number] 2.16.84 0.1.383957.3.579.2.593 1970 Unknown [id number] 2.16.84 0.1.950669.3.579.2.1259 1970 Unknown [id number] 2.16.84 0.1.927451.3.579.2.1259 Unknown [id number] 2.1 [id number] Unknown [facility] [id number] Unknown [id number] 2.16.8 40.1.416006.3.579.2.531 Unknown [id number] 2.16.8 [id number] Social History Date Type Detail Facility Sex Assigned At [facility] [employer] Other Start: 08-26-2023 [facility] Start: 1970 Sex Assigned At Female F [facility] Medical Equipment Procedure Code Equipment Code Equipment Origin al Text Equipment Identifier Dates Orthopaedic bone screw, non-bioabsorbable, non-sterile ()[id number] FDA Start: 07-28-2020 Orthopaedic bone screw, non-bioabsorbable, non-sterile ()[id number] FDA Start: 07-28-2020 Femur nail, sterile ()[id number] FDA Start: 07-28-2020 Orthopaedic bone screw, non-bioabsorbable, sterile ()[id number] FDA Start: 07-28-2020 Internal orthopa edic fixation system, cerclage wire/cable, sterile ()[id number] FDA Start: 07-28-2020 Internal orthopa edic fixation system, cerclage wire/cable, sterile ()[id number] [id number] FDA Start: 07-28-2020 Clinical Notes 11-16-2020 to 03-14-2022 Note Date & Type Note Facility 03-14-2022 Note Orthopedic Surgery Subjective Follow-up of the Left Hip 03/14/22 Keila Richardson is a 51 y.o. female presenting for follow-up of Left hip joint posterolateral total hip arthroplasty using Jason dual mobility implants on 11/27/21. States that she has improved significantly since last visit about a month ago. She is no longer walking with any assistive device, previously noted pains to the left hip and thigh have essentially resolved. Has finished formal PT, continues with home exercises. States that she can feel her strength and mobility improving. Really the only thing she limits herself on related to precautions, she specifically inquires about being able to lay on the left side. Overall she is doing very well and is very satisfied with her progress. 01/10/22 Keila Richardson is a 51 y.o. 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 She says that she has transient episodes do not last for long periods of time. They began after her left total hip arthroplasty. She is still able to ambulate without too much difficulty. She is doing therapy for her left hip at the moment. Patient History Past Surgical History: Procedure Laterality Date CT CHEST ANGIOGRAM W AND/OR WO IV CONTRAST 11/28/2021 CT CHEST ANGIOGRAM W AND/OR WO IV CONTRAST 11/28/[address]21 [facility] CT IMAGING FEMUR FRACTURE SURGERY Left X2 HYSTERECTOMY KNEE ARTHROPLASTY Bilateral KNEE ARTHROSCOPY W/ DEBRIDEMENT Bilateral PARTIAL HYSTERECTOMY Past Medical History: Diagnosis Date Fractures Osteoarthritis Seasonal allergies Objective General: Body mass index is 38.35 kg/m???. No acute distress, comfortable Left Hip: Inspection- no ecchymosis, no edema Tender to palpation over greater trochanter, otherwise non-tender Hip ROM: Internal Rotation 30??? External Rotation 50??? Flexion 120??? Strength: Hip Flexion 5/5 Hip Extension 5/5 Hip Abduction 5/5 Hip Adduction 5/5 Knee Flexion 5/5 Knee Extension 5/5 Sensation: intact over superficial peroneal, deep peroneal and tibial nerve distributions Gait: normal Imaging XR left hip 03/14/22: Were seen by myself and interpreted independently which show that the patient has left primary total hip arthroplasty which is well aligned well fixed without any complicating process. No change in hardware alignment, no signs of loosening or other complications, stable appearing hardware. No evidence of any fracture or dislocation seen. Patient and family were explained the details of the surgery and x-rays. Imaging personally reviewed and interpreted by attending physician. Findings discussed with patient. Assessment/Plan Keila Richardson is a 51 y.o. female with History of total hip arthroplasty, left, DOS 11/27/21. She is doing very well, strength and mobility greatly improved, very satisfied with results thus far. Will follow-up yearly or as needed. Patient was reminded to take oral antibiotics prior to dental work or colonoscopy. Patient will avoid excessive abduction internal rotation to prevent dislocations. Patient will continue with weight loss program and strengthening of the lower extremity. She will contact us if she develops any fever chills or rigors any concerns. All questions were answered today. Patient is happy with the overall outcome. -Return to clinic in 1 year Jose Antonio Randolph MD Orthopaedic Surgery, Resident Ortho Pager [phone] 03/14/22 1:35 PM I am available via [employer] 6a-6p. May contact the on-call resident with any concerns via the Orthopaedic pager at any time. By using the attestations below, the signing clinician agrees that I have read and verify that the documentation has been personally reviewed by me and ensure that the documentation accurately reflects the encounter. GC: I personally saw this patient on the day of the encounter, performed the ayala portion(s) of the service and participated in the management and confirm the resident's documentation. Please note there may be an additional personal documentation from me. Dr. Leo Ortega MD MRCSEd [employer] Rep[employer]r orthopedic surgery-[facility]. [facility] 01-29-2022 Note PROCEDURE: XR FOOT R T 2V HISTORY: Pain in right foot ; follow-up right fifth toe fracture COMPARISON: None. FINDINGS: BONES:Thin curvilinear lucency through the head of fifth proximal phalanx suspicious for nondisplaced fracture. SOFT TISSUES:No visible soft tissue swelling. EFFUSION:None visible. OTHER: Negative. IMPRESSION: 1. Suspect subacute nondisplaced fracture of fifth proximal phalanx. No prior studies for comparison. Electronically authenticated by: PATTI THOMPSON Date: 2022-01-29 17:23 [facility] 01-23-2022 Note CONSULTATION CONSULTATION DATE: 01/23/2022 HISTORY OF PRESENT ILLNESS: This is a pleasant, 51-year-old female who returns to the Pain Clinic for a three month follow up for chronic pain syndrome and generalized myalgias. Her pain, on a daily basis, is rated 8/10. She has had multiple surgeries in the past, as well as bilateral knee replacements, and she has a lópez in her left femur. She does follow up with Orthopedics in [place]. Back in June of 2021, she did have left hip trochanteric bursa injection which was very beneficial. She does have a pending Rheumatology appointment in a couple days, as they are ruling out autoimmune problem. She sees Dr. Alvarez as her PCP and she would like to discuss lower extremity swelling. Patient's REVIEW OF SYSTEMS / PAST MEDICAL HISTORY / ALLERGIES and IMAGES have been reviewed and noted on the chart. PHYSICAL EXAM: VITAL SIGNS: Blood pressure is 153/77. Heart rate is 93. She is 5'11 , weight 131 kg. GENERAL APPEARANCE: Pleasant, appropriate, no acute distress. FOCUSED EXAM - MUSCULOSKELETAL: Patient walks with a quad cane. Motor is 4/5 bilaterally with muscle disuse noted bilateral lower extremities. NEUROLOGICALLY: Radicular sensory is intact. +1 bilateral patellar reflexes. Patient is cognitively intact. BACK: Range of motion is functional in lateral rotation and flexion/extension. No tenderness upon compression of the lower lumbar facets. Paravertebral muscles are non-spasmodic. Joaquin's point non-tender. DIAGNOSIS: Chronic pain syndrome, left hip pain and left knee pain. PLAN: We will continue to medically maintain her narcotics. Refill for Navarre 5/325 two pills twice a day for pain. We will maintain baclofen 10 mg q.h.s. We will follow up with the patient in three months' time unless otherwise indicated. Patient agrees with this plan. [facility] 01-14-2022 Note Subjective Patient ID: Keila Richardson is a 51 y.o. female who presents for Follow-up. HPI: Patient is a 51-year-old female who was origianlly referred to the outpatient rheumatology clinic by Dr. Antonio WONG with [facility] in [facility]. Reason for referral will ask arthritis at a young age, elevated sed rate . She is here today via telemedicine visit to follow up initial rheumatology consult work up. Normal/negative: sjogren antibody testing SSA and SSB XR pelvis radiologist interpretation 12/13/21: FINDINGS/IMPRESSION: *Redemonstrated intramedullary lópez and gamma and screw fixation of the right hip. *Total left hip arthroplasty is also revisualized in appropriate alignment. No hardware complication. *Phleboliths in the left hemipelvis. Degenerative changes symphysis pubis. Asked rheum staff to please ask Radiology to comment on SI joints, abraham views were ordered Called [phone] on 01/14/22 at 1051 Verified patient name and date of . Verified patient was in a safe location and able to speak freely. Verified patient was in the state [facility] at the time of our telephone conversation. Met with patient today. They note - patient notes the hip is doing better, she just this past week graduated from walker to cane but on Thursday she broke her toe (was getting around better, feeling much better, and hit her toe bad enough to hear it break - went to urgent care). Urgent care told her she broke her pinky toe and maybe middle toe as well (vs previous fracture). - toe still hurting a lot now, is in an immobilizer - met deductible and would like to get MRI before end of year if needed - severe pain in hip is gone overall, some weird pains now and then but the nerve pain is pretty much gone . Rare spasms now and then, mostly when laying flat in bed or moves just the right way Review of Systems 7 system review was obtained with pertinent findings as noted above in HPI and otherwise is negative in detail. Objective Physical Exam Visit Vitals Ht 1.803 m (5' 11 ) Wt 125 kg (275 lb) BMI 38.35 kg/m??? OB Status Hysterectomy Smoking Status Former BSA 2.5 m??? Telephone Telemedicine Exam - limited Limited vitals given telephone telemedicine visit. Hearing appears normal in usual conversation. Conversing without audible or appreciable conversational dyspnea. Alert, oriented x3. Cooperative, conversant Assessment/Plan Keila Richardson is a 51 y.o. female who is being seen in the outpatient rheumatology clinic today in follow up for the chief concerns of early onset osteoarthritis and HLA B27 positivity. Patient notes a longstanding history of early onset osteoarthritis: Her father and immediate family appears to have a similar history of early onset (osteo)arthritis raising concern for genetic component of early onset OA. She has a negative RANDY making connective tissue diseases unlikely. She also lack other typical signs/symptoms commonly seen in connective tissue diseases. Her RF and CCP are negative making seropositive rheumatoid arthritis unlikely. Her history and ongoing arthralgias as not consistent with a typical inflammatory arthritis pattern making a seronegative or undifferentiated inflammatory arthritis less likely. 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 She does endorse lower back/SI region pain but is uncertain if this is from altered mechanics or true primary SI pain. Unfortunately, abraham view was ordered but no interpretation of SI joints was done by radiology on XR pelvis imaging - We have asked radiology to add an addendum to the original films but were told it may take a few weeks given limited availability of this particular radiologist. Discussed this challenge/missing SI joint data with patient today over telephone, she notes understanding of this and will keep in touch with us re this addendum. I would expect to see some changes on XR imaging given her multiple decades of symptoms should she indeed have an inflammatory sacroiliitis. Also of note is patient's hypermobility, possibility of bladder prolapse. This does raise concern for hypermobility syndrome/hypermobile Ehler Danlos (variant) which can cause earlier onset of wear and tear of the joints (degenerative or osteoarthritis). Hypermobility may not fully explain her early onset OA, however, and there remains suspicion for a genetic component (given strong family history of early onset OA without known comorbids of inflammatory rheumatologic diseases). RV: Depends on XR imaging, next steps Could consider referral to PMR if degenerative SI joint changes for possible injections All questions and concerns were answered to patient's satisfaction during visit. They are able to teach back the plan including next steps. Patient is agreeable to plan at time of visit. (more content not included)... [facility] 01-10-2022 Note Orthopedic Surgery Subjective Chief complaint: Chief Complaint Patient presents with Right Thigh - Pain Patient has had increased pain in right leg where her femur was repaired since her Left hip replacement 6 weeks ago. 01/10/22 Keila Richardson is a 51 y.o. 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 She says that she has transient episodes do not last for long periods of time. They began after her left total hip arthroplasty. She is still able to ambulate without too much difficulty. She is doing therapy for her left hip at the moment. Patient History Past Surgical History: Procedure Laterality Date CT CHEST ANGIOGRAM W AND/OR WO IV CONTRAST 11/28/2021 CT CHEST ANGIOGRAM W AND/OR WO IV CONTRAST 11/28/[address]21 [facility] [address] IMAGING FEMUR FRACTURE SURGERY Left X2 HYSTERECTOMY KNEE ARTHROPLASTY Bilateral KNEE ARTHROSCOPY W/ DEBRIDEMENT Bilateral PARTIAL HYSTERECTOMY Past Medical History: Diagnosis Date Fractures Osteoarthritis Seasonal allergies Objective General: There is no height or weight on file to calculate BMI. No acute distress, comfortable Respiratory: Unlabored breathing with normal rate, no cough Psych: Appropriate mood behavior Right lower extremity: Inspection-previous surgical incision has healed appropriately. Palpation-range of motion-0 degrees to 110 degrees. Motors-5 out of 5 strength in quadriceps and hamstrings. Sensory-sensory intact light touch in L4, L5, S1. Vascular-leg is warm and well-perfused. Imaging: Radiographs of right femur demonstrates healed distal femur fracture in appropriate alignment, with hardware in appropriate position. Assessment/Plan Keila Richardson is a 51 y.o. 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 Since her fracture has healed appropriately and her hardware is intact, this is likely not related to her prior fracture and/or hardware. We would like for her to continue with physical therapy for her left hip and asked them to concentrate on her right distal femur as well. Over time, we believe that her right distal femur transient discomfort should resolve. Alek Neumann MD PGY-3 Orthopedic Surgery [facility] By using the attestations below, the signing clinician agrees that I have read and verify that the documentation has been personally reviewed by me and ensure that the documentation accurately reflects the encounter. GC: I personally saw this patient on the day of the encounter, performed the ayala portion(s) of the service and participated in the management and confirm the resident's documentation. Please note there may be an additional personal documentation from me. [facility] 12-13-2021 Note Keila Richardson is a 51 y.o. female who is being seen in the outpatient rheumatology clinic today for the chief concerns of abnormal labs, early onset OA, PCP concern for inflammatory arthritis. HPI: Patient is a 51-year-old female referred to the outpatient rheumatology clinic by Dr. Antonio WONG with [facility] in [facility]. Reason for referral will ask arthritis at a young age, elevated sed rate . Included in referral documentation is a office visit note from 10/03/2021 for surgical clearance for left MILES . Patient has been endorsing hip pain for many years in the left hip, severe but gradual in onset. Dull achy, sharp, throbbing and worse with activity. PCP ordered labs which were recorded in referral documentation: PCP ordered laboratory studies 10/2021: HLA-B27 positive Normal/negative: RANDY, RF, CCP Personally reviewed the EMR chart. On 12/06/2021 patient was seen in the ED for left hip and left knee pain. She underwent a left MILES on 11/27/2021. Per ED note and orthopedics consultation note there were no indications for acute surgical interventions, implant appeared stable and well-positioned. It was recommended follow-up conservatively, use a knee brace for instability, and use a walker. She is recommended to continue calf pumps, icing, and as needed Tylenol/ibuprofen X-ray of left hip 09/27/2021 radiologist of rotation: Findings: Pelvic ring and sacrum appear intact and atraumatic. Partially visualized right hip prosthesis appears uncomplicated. There is advanced degeneration of left hip joint space narrowing and numerous subarticular cysts. No evidence of articular collapse or acute bony abnormality. Impression: Advanced degeneration of left hip. X-ray left hip 04/2021 radiologist interpretation: Findings: Postoperative changes of right femur internal fixation. Severe left hip osteoarthrosis with joint space loss and subchondral sclerosis. The definitive displaced fracture line, though soft tissue x-ray beam attenuation somewhat limits sensitivity. Ilioischial and iliopectineal lines appear intact. Degenerative changes of the SI joints. Impression: Well limited due to soft tissue attenuation and severe degenerative changes, no convincing acute displaced left hip fracture. Past Medical History: Diagnosis Date Fractures Osteoarthritis Seasonal allergies - Steroid-induced glaucoma - PATIENT DENIES THIS, patient notes she has only been on prednisone a few times in the past - only when she has had a bronchial-like cold. Maybe 3 times in her life she has been on prednisone. PCP put her on it when she was on it but it was higher doses (40mg) and helped - Osteoarthritis, uncertain details - Displaced right distal femur fracture 07/2018. - History of COVID February 2021 - Elevated BMI, 40 - dry eye syndrome Current Outpatient Medications Medication Instructions aspirin 325 mg, oral, 2 times daily baclofen (Lioresal) 10 mg tablet 1 tablet, oral, Nightly calcium citrate (Calcitrate) 200 mg (950 mg) tablet 2 tablets, oral, 3 times daily RT cetirizine (ZYRTEC) 10 mg, oral, Nightly cholecalciferol, vitamin D3, 50 mcg (2,000 unit) capsule 1 tablet, oral, Every morning HYDROcodone-acetaminophen (Navarre) 5-325 mg tablet 2 tablets, oral, 2 times daily Flonase, generic Past Surgical History: Procedure Laterality Date CT CHEST ANGIOGRAM W AND/OR WO IV CONTRAST 11/28/2021 CT CHEST ANGIOGRAM W AND/OR WO IV CONTRAST 11/28/[address]21 [facility] [address] IMAGING FEMUR FRACTURE SURGERY Left X2 HYSTERECTOMY KNEE ARTHROPLASTY Bilateral KNEE ARTHROSCOPY W/ DEBRIDEMENT Bilateral PARTIAL HYSTERECTOMY Surgical history: - Arthrocentesis of left knee x1 on each knee - Arthrocentesis right knee x1 on each knee - Vaginal hysterectomy 2008 - enlarged uterus, horrible intolerable cramping, heavy menses (ovaries remained) - Lasik 2007 - ORIF right distal femur cerclage wire and IM nail 07/2018 - 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-sided iliac crest bone graft harvest as well as fixation, hardware removal, 04/2021 Social History Socioeconomic History Marital status: Spouse name: Not on file Number of children: Not on file Years of education: Not on file Highest education level: Not on file Occupational History Not on file Tobacco Use Smoking status: Former Types: Cigarettes Quit date: 2020 Years since quittin.8 Smokeless tobacco: Never Substance and Sexual Activity Alcohol use: Yes Comment: BEER EVERY COUPLE WEEKS Drug use: Never Sexual activity: Not on file Other Topics Concern Not on file Social History Narrative Not on file Social Determinants of Health Financial Resource Strain: Not on file Food Insecurity: Not on file Transportation Needs: Not on file Physical Activity: Not on file Stress: Not on file Social Connections: Not on file Intimate Partner Violence: Not on file Housing Stability: Not on file Social hi (more content not included)... [facility] 12-11-2021 Note Subjective Keila Richardson is 51 y.o. and is now 2 weeks post left total hip arthroplasty. Pain is controlled with current analgesics. Medications being used: ibuprofen (OTC) and narcotic analgesics including hydrocodone/acetaminophen (Lorcet, Lortab, Navarre, Vicodin). The patient denies fever, wound drainage, increasing redness, pus, increasing pain, increasing swelling. Post op problems reported: Groin pain and difficulty in lifting the left lower extremity and straightening the knee joint. She recently had gone to the ER since she heard a pop when she was trying to do her physical therapy and had x-rays in the ER which did not show any change in the overall alignment. She is also s/p left knee arthroplasty done by an outside surgeon almost 9 to 10 years ago. Her left kneebothers her on occasions denies any instability today. Patient has been accompanied by her today. She has been mobilizing with the use of walker at this point in time and does not have any major limp. She believes that the pain in her groin he is mainly when she tries to do her physical therapy. Patient denies any instability of the hip joint. She is here for her first postoperative follow-up visit and further evaluation of the lower extremity. She is s/p x-rays of the left hip joint in the ER recently. . She is ambulating full weightbearing with the use of a walker as before. She is noted to have previous issues in the form of lumbosacral apathy as well as right hip fracture s/p IM nailing by Dr. Farias. She continues to be trying to lose weight. Objective General: alert and oriented, in no acute distress Gait: Normal Sutures: Absorbable sutures incision looks healthy, no signs of any infection or inflammation seen. Incision: healing well, no significant drainage, no dehiscence, no significant erythema Tenderness: none Flexion ROM: 90 degrees Extension ROM: 5 degrees Abduction ROM: 35 to 40 degrees DVT Evaluation: No evidence of DVT seen on physical exam. No signs of any deep and thrombosis seen in clinic range of motion well-maintained. Patient has groin pain at this point in time but this is with difficulty in lifting the thigh with a positive Stinchfield suggestive of possible severe psoas tendinitis. Patient also has some difficulty in knee extension with some weakness of about 3+ to 4 out of 5 in the quads. Paresthesias are persistent. Imaging X-rays: 3 views of the hip were obtained today. These were seen by myself interpreted and these were compared with x-rays that she had in the ER as well as postoperative x-rays in the PACU. These do not show any change in the overall alignment on the left hip arthroplasty is well aligned well fixed without any major complicating process. The details were explained to the patient and the family. Patient was explained that she was given a high offset hip joint so as to prevent any major Trendelenburg lurch as she had weakness in the hip abductors. Her lurch has reduced following the surgery. No evidence of any new fracture or dislocation seen. X-rays of the left knee arthroplasty that were done in the ER were also seen by myself interpreted which show the patient has polythene wear in the left knee joint along with possible mid flexion instability. This was discussed with the patient but patient denies any major problems with the knee joint at this point in time. Assessment/Plan Diagnosis Plan 1. Psoas tendinitis of left side 2. History of total hip arthroplasty, left XR hip left 2 or 3 views Status post left total hip arthroplasty. Doing well postoperatively. Other than has some groin pain secondary to psoas tendinitis. Range of motion and rehabilitation exercises discussed with the patient. Physical Therapy for post-operative rehabilitation. Full weight bearing. Patient may shower and will keep the wound clean and dry at all times. Patient will continue the physical therapy and continue with strict posterior hip precautions. She will avoid sitting too low and avoid twisting turning torquing or falling. Patient was reassured that she does not have any new fracture or dislocation. Patient will continue weight loss program and strength of the lower extremity. She will follow-up with her PCP and/or her pain management for any further change in her muscle relaxants as she has spasms and has currently been on baclofen as well. Patient has other medical issues including lumbosacral neuropathy. She will watch for any fever chills or rigors or any concerns. She will follow-up to see me in about 3 months time or earlier if required. All questions were answered today. I have explained to her that the psoas tendinitis may take about 3 to 6 months for it to gradually resolve. Patient understands the plan all questions answered again. Patient's agreed with the plan as well. Patient will DC her aspirin and may continue with her Motrin as (more content not included)... [facility] 11-29-2021 Note Physical Therapy Physical Therapy Treatment Patient Name: Keila Richardson Today's Date: 11/29/2021 Discharge Recommendation: Home with Home health PT General Family/Caregiver Present: Yes () Subjective: RN and pt agreeable to PT treatment this date. Co-treat with OT. Pt supine in bed upon arrival and exit with call light in reach and in room, RN aware. Patient Active Problem List Diagnosis Primary osteoarthritis of left hip Osteoarthritis of left hip, unspecified osteoarthritis type Pain Pain Assessment Pain Assessment: 0-10 Pain Score: 7 Pain Type: Acute pain, Surgical pain Pain Location: Hip Pain Orientation: Left Objective General Visit Information: PT Last Visit PT Received On: 11/29/21 Response to Previous Treatment: Patient with no complaints from previous session. General Family/Caregiver Present: Yes () Subjective: RN and pt agreeable to PT treatment this date. Co-treat with OT. Pt supine in bed upon arrival and exit with call light in reach and in room, RN aware. Precautions Precautions LE Weight Bearing Status: Left, WBAT Medical Precautions: pure wick, fall risk Medical Precautions: fall risk, posterior MILES, Purewick (hip abductor pillow in bed) Post-Surgical Precautions: posterior L hip precautions Static Sitting Balance Static Sitting Balance Static Sitting-Balance Support: Feet supported Static Sitting-Level of Assistance: Independent Static Sitting-Comment/Number of Minutes: ~10 minutes Dynamic Sitting Balance Dynamic Sitting Balance Dynamic Sitting-Balance Support: Right upper extremity supported, Left upper extremity supported, Feet supported Dynamic Sitting-Balance: Lateral lean Dynamic Sitting Balance-Level of Assistance: Distant supervision Dynamic Sitting-Comments: Pt able to scoot to EOB in seated position with SBA Static Standing Balance Static Standing Balance Static Standing-Balance Support: Right upper extremity supported, Left upper extremity supported (RW) Static Standing-Level of Assistance: Contact guard Dynamic Standing Balance Dynamic Standing Balance Dynamic Standing-Balance Support: Right upper extremity supported, Left upper extremity supported (RW) Dynamic Standing Balance-Level of Assistance: Contact guard Bed Mobility Bed Mobility Bed Mobility: Yes Bed Mobility 1 Bed Mobility From 1: Supine Bed Mobility Type 1: To Bed Mobility to 1: Short sit Level of Assistance 1: Independent Bed Mobility Comments 1: HOB raised, though pt plans to sleep in recliner at home Bed Mobility 2 Bed Mobility From 2: Short sit Bed Mobility Type 2: To Bed Mobility to 2: Supine Level of Assistance 2: Moderate assistance Bed Mobility Comments 2: assist for LE progression back to bed d/t pain and weakness Transfers Transfers Transfer: Yes Transfer 1 Transfer From 1: Bed Transfer Type 1: To and from Transfer to 1: Stand Technique 1: Sit to stand, Stand to sit Transfer Device 1: standard walker Transfer Level of Assistance 1: Contact guard Trials/Comments 1: Increased time and effort General Assessments: Activity Tolerance Ambulation comments: Pt ambulates 75 ft with RW. Endurance: Stage III Cognition Overall Cognitive Status: Within Functional Limits Cognition Comments: Pt very anxious during mobility Treatment: Therapeutic Activity Therapeutic Activity Time Entry: Therapeutic Activity 1: pt performs bed mobility, sitting EOB, ambulation and stairs this date to practice safe techniques and mobility to return home. Ambulation Ambulation: Yes Ambulation 1 Surface 1: Level tile Device 1: Rolling walker Assistance 1: Contact guard Quality of Gait 1: slow oleksandr, antalgic gait with decreased stance time on LLE, short step height/length, heavy reliance on UEs on RW Comments/Distance (ft) 1: 75 ft (No LOB noted, VC for correct use of RW with good carryover) Stairs Stairs: Yes Stairs Rails 1: Bilateral Device 1: No device Assistance 1: Contact guard ( on side of pt with therapist on other side CGA, heavy use of rails) Quality of Stairs 1: step to pattern, non reciprocal, VC for ascending with non surgical LE and descending with surgical LE Comment/Number of Steps 1: 3 Outcome Assessments 6 Clicks (Mobility) Help from another person turning from your back to your side while in a flat bed without using bedrails: A little Help from another person moving from lying on your back to sitting on the side of a flat bed without using bedrails: A little Help from another person moving to and from a bed to a chair (including a wheelchair): A little Help from another person standing up from a chair using your arms (e.g. wheelchair or bedside chair): A little Help from another person to walk in hospital room: A little Help from another person climbing 3-5 steps with a railing: A little Mobility 6 Clicks T (more content not included)... [facility] 11-29-[address] [facility] for [facility] Sent final AVS and discharge order via [facility]. Therapy worked with pt this afternoon and reported she could go home. Discussed with pt who is agreeable. [facility] 11-29-2021 Note Occupational Therapy Occupational Therapy Treatment Patient Name: Keila Richardson Today's Date: 11/29/2021 General Subjective: I am feeling a little bit better, I might be able to go home. Treatment Duration (min): 36 Minutes Family/Caregiver Present: Yes Problem List Patient Active Problem List Diagnosis Primary osteoarthritis of left hip Osteoarthritis of left hip, unspecified osteoarthritis type Pain: Pain Assessment Pain Assessment: 0-10 Pain Score: 7 Pain Type: Surgical pain Pain Location: Hip Pain Orientation: Left Objective General Visit Information: OT Last Visit OT Received On: 11/29/21 General Subjective: I am feeling a little bit better, I might be able to go home. Treatment Duration (min): 36 Minutes Family/Caregiver Present: Yes Cognition Cognition Overall Cognitive Status: Within Functional Limits LE Dressing LE Dressing: No (Pt did not complete LB dressing however, pt stated that she has a vacuum spindle sander and sock aid at home and has been using it. Pt did not have questions at this time.) Static Sitting Balance Static Sitting Balance Static Sitting-Balance Support: No upper extremity supported, Feet supported Static Sitting-Level of Assistance: Distant supervision Static Standing Balance Static Standing Balance Static Standing-Balance Support: Right upper extremity supported, Left upper extremity supported Static Standing-Level of Assistance: Contact guard Bed Mobility Bed Mobility Bed Mobility: Yes Bed Mobility 1 Bed Mobility From 1: Supine Bed Mobility Type 1: To Bed Mobility to 1: Short sit Level of Assistance 1: Minimum assistance Bed Mobility 2 Bed Mobility From 2: Short sit Bed Mobility Type 2: To Bed Mobility to 2: Supine Level of Assistance 2: Moderate verbal cues Bed Mobility Comments 2: Assist required to bring B LE's into bed. (Pt will be sleeping in recliner) Transfers Transfers Transfer: Yes Transfer 1 Transfer From 1: Sit Transfer Type 1: To and from Transfer to 1: Stand Technique 1: Sit to stand Transfer Device 1: rolling walker Transfer Level of Assistance 1: Minimum assistance Trials/Comments 1: 2 Treatment Comments: Treatment times:[id number] Outcome Assessments AM-PAC 6 Clicks Putting on and taking off regular lower body clothing?: A Lot (Mod/Max Assist) Bathing(Including washing,rinsing,drying)?: A Lot (Mod/Max Assist) Toileting, which includes using the toilet,bedpan,or urinal?: Unable (Total Assist) (use of catheter) Putting on and taking off regular upper body clothing?: A Little (Min Assist/Contact Guard/Supervision) Taking care of personal grooming such as brushing teeth?: None (Independent) Eating meals?: None (Independent) Total Score OT [facility]: 16 Assessment/Plan OT Assessment OT Assessment/MARCELO Summary: Pt is progressing toward goals. Pts present throughout session and family will be present to assist at home. Pt had several questions regarding hip precautions which where addressed throughout session. Prognosis: Good Medical Staff Made Aware: Yes Plan Level of assist: 1 assist OT Plan: Skilled OT OT Frequency: 1 time per day until discharge & PRN Equipment Recommended: (Pt has all needed equipment) OT Goals: Multi-Disciplinary Problems (from Occupational Therapy) Active Problems Problem: Balance Start Date: 11/28/21 Goal Start Date Expected End Date End Date LTG - Patient will tolerate standing with good balance for at least 10 minutes while engaging in functional tasks, such as grooming sinkside, using least restrictive device. 11/28/21 12/19/21 -- Problem: Bathing Start Date: 11/28/21 Goal Start Date Expected End Date End Date LTG - Patient will utilize adaptive techniques to bathe body with modified independence. 11/28/21 12/19/21 -- Problem: Dressings Lower Extremities Start Date: 11/28/21 Goal Start Date Expected End Date End Date LTG - Patient will utilize adaptive techniques/equipment to dress lower body with modified independence. 11/28/21 12/19/21 -- Problem: Dressing Upper Extremities Start Date: 11/28/21 Goal Start Date Expected End Date End Date LTG - Patient will utilize adaptive techniques/equipment to dress upper body with modified independence. 11/28/21 12/19/21 -- Problem: Safety Start Date: 11/28/21 Goal Start Date Expected End Date End Date LTG - Patient will adhere to post-surgical precautions 100% of the time during engagement in all functional tasks, transfers, and mobility. 11/28/21 12/19/21 -- Problem: Toileting Start Date: 11/28/21 Goal Start Date Expected End Date End Date LTG - Patient will utilize adaptive techniques/equipment to complete daily toileting tasks with minimal assistance. 11/28/21 12/19/21 -- Problem: OT Misc Start Date: 11/28/21 Goal Start Date Expected End Date End Date LTG - Pt will complete functional transfers, functional ambulation, or functional (more content not included)... [facility] 11-29-2021 Note ------ Attestation signed by Aryan Vega at 11/30/2021 8:29 AM I personally saw and examined the patient on the same date of service as resident/fellow Dr. Chavis. I discussed the findings and therapeutic plan with the resident/fellow Dr. Chavis. I agree with the documentation, except for any edits/updates below. Teaching Physician's Revisions: None ------ Subjective Patient was resting in bed when seen. She complained of mild left hip pain. Otherwise, she had no other acute complaints. Denied chest pain or shortness of breath. She denied chest pain or shortness of breath. She had no acute complaints this morning. She is off oxygen at this time and her SpO2 was around 95% when seen. CTA chest was negative for any PE. Objective Patient Vitals for the past 24 hrs: BP Temp Temp src Pulse Resp SpO2 Weight 11/29/21 0509 -- -- -- -- -- -- (!) 138 kg (304 lb 4.8 oz) 11/28/212001 107/63 37 ???C (98.6 ???F) Oral 107 18 97 % -- 11/28/21 1708 107/59 36.8 ???C (98.2 ???F) Oral 84 16 97 % -- Physical Exam Vitals reviewed. Constitutional: General: She is not in acute distress. Appearance: She is not ill-appearing or toxic-appearing. HENT: Head: Normocephalic and atraumatic. Mouth/Throat: Mouth: Mucous membranes are moist. Eyes: General: No scleral icterus. Extraocular Movements: Extraocular movements intact. Pupils: Pupils are equal, round, and reactive to light. Cardiovascular: Rate and Rhythm: Normal rate and regular rhythm. Heart sounds: Normal heart sounds. No murmur heard. No friction rub. No gallop. Pulmonary: Effort: Pulmonary effort is normal. No respiratory distress. Breath sounds: Normal breath sounds. No stridor. No wheezing or rales. Abdominal: General: There is no distension. Palpations: Abdomen is soft. There is no mass. Tenderness: There is no abdominal tenderness. There is no guarding. Musculoskeletal: Right lower leg: No edema. Left lower leg: No edema. Skin: Coloration: Skin is not jaundiced. Findings: No rash. Neurological: Mental Status: She is alert. Mental status is at baseline. Cranial Nerves: No cranial nerve deficit. Sensory: No sensory deficit. Motor: No weakness. Psychiatric: Mood and Affect: Mood normal. Behavior: Behavior normal. Thought Content: Thought content normal. Judgment: Judgment normal. Lab Results Component Value Date NA 137 11/28/2021 K 4.4 11/28/2021 CL 105 11/28/2021 ANIONGAP 8 11/28/2021 BUN 19 11/28/2021 CREATININE 0.66 11/28/2021 CALCIUM 8.3 (L) 11/28/2021 No results found for: BILITOT, BILIDIR, ALKPHOS, AST, ALT, PROT, ALBUMIN Lab Results Component Value Date WBC 13.69 (H) 11/28/2021 RBC 3.96 11/28/2021 HGB 11.7 (L) 11/28/2021 HCT 36.0 11/28/2021 MCV 90.9 11/28/2021 MCH 29.5 11/28/2021 MCHC 32.5 11/28/2021 RDW 13.1 11/28/2021 PLT 381 11/28/2021 NRBC 0 04/11/2021 === Imaging Orders, Last 24 Hours === CT CHEST ANGIOGRAM W AND/OR WO IV CONTRAST - Impression - IMPRESSION: *Negative for pulmonary embolism. *Diffuse hepatic steatosis. Electronically signed: Daniel Meza. Assessment/Plan Principal Problem: Primary osteoarthritis of left hip Active Problems: Osteoarthritis of left hip, unspecified osteoarthritis type Severe osteoarthritis of left hip - S/p total left hip arthroplasty Acute hypoxic respiratory failure - resolved Hypotensive episode - resolved - Patient was undergoing procedure and the ortho team was doing an osseous invasive procedure such as drilling, and the patient became acutely hypoxic requiring 3L NC and was briefly hypotensive into 60s SBP - Differentials include fat embolism, air embolism, anaesthesia-induced hypoxia - US doppler lower extremities with preliminary result of no DVT. Will contact Radiology for full read - CT angiogram chest without PE - On aspirin 325mg x2 for DVT prophylaxis per ortho Ori Chavis MD PGY2, Internal Medicine Resident [facility] 11-29-2021 Note Subjective Doing well this morning other than left hip pain. Denies chest pain or shortness of breath. Worked with PT yesterday. Objective Patient Vitals for the past 24 hrs: BP Temp Temp src Pulse Resp SpO2 Weight 11/29/21 0509 -- -- -- -- -- -- (!) 138 kg (304 lb 4.8 oz) 11/28/212001 107/63 37 ???C (98.6 ???F) Oral 107 18 97 % -- 11/28/21 1708 107/59 36.8 ???C (98.2 ???F) Oral 84 16 97 % -- 11/28/21 0800 106/62 36.4 ???C (97.6 ???F) -- 94 17 95 % -- Physical Exam Gen: Alert, no acute distress. LLE: SILT in SP/DP/T. DP pulse 2+. Firs ankle dorisflexors/plantarflexors. Lab Results Component Value Date NA 137 11/28/2021 K 4.4 11/28/2021 CL 105 11/28/2021 ANIONGAP 8 11/28/2021 BUN 19 11/28/2021 CREATININE 0.66 11/28/2021 CALCIUM 8.3 (L) 11/28/2021 No results found for: BILITOT, BILIDIR, ALKPHOS, AST, ALT, PROT, ALBUMIN Lab Results Component Value Date WBC 13.69 (H) 11/28/2021 RBC 3.96 11/28/2021 HGB 11.7 (L) 11/28/2021 HCT 36.0 11/28/2021 MCV 90.9 11/28/2021 MCH 29.5 11/28/2021 MCHC 32.5 11/28/2021 RDW 13.1 11/28/2021 PLT 381 11/28/2021 NRBC 0 04/11/2021 === Imaging Orders, Last 24 Hours === XR CHEST 1 VIEW - Impression - IMPRESSION: No evidence of active pulmonary disease. Electronically signed: Santos Campuzano. _ XR HIP 2 OR 3 VW LEFT - Impression - Satisfactory alignment status post joint replacement. Electronically signed: Moncho Beyer. Assessment/Plan Principal Problem: Primary osteoarthritis of left hip Active Problems: Osteoarthritis of left hip, unspecified osteoarthritis type 51 yo f with hx of opiate use who had L MILES yesterday who had intra op episode of desat and hypotension. -Medicine to help rule out pulmonary process. -WBAT LLE with posterior hip precautions. -Will try Tiffany with scheduled home pain meds and scheduled tylenol. -ASA for dvt proph. -PT/OT. Alek Neumann Ortho PGY3 [facility] 11-28-2021 Note Physical Therapy Physical Therapy Evaluation Patient Name: Keila Richardson Today's Date: 11/28/2021 Discharge Recommendation: SNF vs Home with home health PT pending pt progress and ability to increase functional mobility during hospital stay Pt is a 51 year old female presenting with left hip severe degenerative arthritis s/p L posterior MILES on 11/27/21. General Family/Caregiver Present: Yes () Subjective: RN and pt agreeable to PT eval this date. Pt supine in bed upon arrival and exit with call light in reach and in room, RN aware. Patient Active Problem List Diagnosis Primary osteoarthritis of left hip Osteoarthritis of left hip, unspecified osteoarthritis type Past Medical History: Diagnosis Date Fractures Osteoarthritis Seasonal allergies Past Surgical History: Procedure Laterality Date CT CHEST ANGIOGRAM W AND/OR WO IV CONTRAST 11/28/2021 CT CHEST ANGIOGRAM W AND/OR WO IV CONTRAST 11/28/[address] [facility] [address] IMAGING FEMUR FRACTURE SURGERY Left X2 HYSTERECTOMY KNEE ARTHROPLASTY Bilateral KNEE ARTHROSCOPY W/ DEBRIDEMENT Bilateral PARTIAL HYSTERECTOMY Pain Pain Assessment Pain Assessment: 0-10 Pain Score: 8 Pain Type: Acute pain, Surgical pain Pain Location: Hip Pain Orientation: Left Home Living Home Living Type of Home: House Lives With: Spouse, Son ( home 01/09, son has school and work during week) Home Adaptive Equipment: Quad cane, Walker rolling, Rollator Home Living Comments: Pt reports using QC most recently and ability to ambulate without cane sometimes when pain decreases. Pt reports using 4ww for longer distances. Home Layout: Two level, Able to live on main level with bedroom/bathroom (Pt reports she is able to sleep in recliner and use BSC on first level.) Home Access: Stairs to enter with rails Entrance Stairs-Rails: Left Entrance Stairs-Number of Steps: 5 Bathroom Shower/Tub: Tub/shower unit Bathroom Toilet: Handicapped height Bathroom Equipment: Grab bars in shower, Tub transfer bench, Bedside commode, Raised toilet seat without rails (counter near toilet to help stand) Prior Level of Function Prior Function Level of [place]: Needs assistance with ADLs, Needs assistance with homemaking (Pt independent with transfers and ambulating short distances around home.) Receives Help From: Family () ADL Assistance: Needs assistance Homemaking Assistance: Needs assistance Prior Function Comments: Pt reports needing assist for dressing socks/shoes and all homemaking tasks. Objective Precautions Precautions LE Weight Bearing Status: Left, WBAT Medical Precautions: fall risk, posterior MILES, Purewick (hip abductor pillow in bed) Post-Surgical Precautions: posterior L hip precautions Cognition Cognition Overall Cognitive Status: Within Functional Limits General Assessments Activity Tolerance Ambulation comments: Pt takes 2-3 small steps with RW and CGA. Endurance: Stage II Sensation Light Touch: No apparent deficits Sensation Comments: denies n/t Coordination Movements are Fluid and Coordinated: Yes Static Sitting Balance Static Sitting-Balance Support: Right upper extremity supported, Left upper extremity supported, Feet supported Static Sitting-Level of Assistance: Close supervision Dynamic Sitting Balance Dynamic Sitting-Balance Support: Right upper extremity supported, Left upper extremity supported, Feet supported Dynamic Sitting-Balance: Lateral lean Dynamic Sitting Balance-Level of Assistance: Close supervision Dynamic Sitting-Comments: Pt able to scoot to EOB in seated position with SBA Static Standing Balance Static Standing-Balance Support: Right upper extremity supported, Left upper extremity supported (RW) Static Standing-Level of Assistance: Contact guard Dynamic Standing Balance Dynamic Standing-Balance Support: Right upper extremity supported, Left upper extremity supported (RW) Dynamic Standing Balance-Level of Assistance: Contact guard Functional Assessments Bed Mobility Bed Mobility: Yes Bed Mobility 1 Bed Mobility From 1: Supine Bed Mobility Type 1: To Bed Mobility to 1: Short sit Level of Assistance 1: Moderate assistance (x2 person) Bed Mobility Comments 1: ModA x2 for trunk and LE progression Bed Mobility 2 Bed Mobility From 2: Short sit Bed Mobility Type 2: To Bed Mobility to 2: Supine Level of Assistance 2: Maximum assistance (x1 person) Bed Mobility Comments 2: maxA for LE progression Transfers Transfer: Yes Transfer 1 Transfer From 1: Bed Transfer Type 1: To and from Transfer to 1: Stand Technique 1: Sit to stand, Stand to sit Transfer Device 1: rolling walker Transfer Level of Assistance 1: Contact guard Trials/Comments 1: slow transition with bed height raised Ambulation Ambulation: Yes Ambulation 1 Surface 1: Level tile Device 1: Rolling walker Assistance 1: Contact guard Qual (more content not included)... [facility] 11-28-2021 Note Occupational Therapy Occupational Therapy Evaluation Patient Name: Keila Richardson Today's Date: 11/28/2021 Yasmin Lee/CHASE This session was completed under the supervision of JAMI Mckee Time in: 1412 Time out: 1500 Sx type: L MILES Sx date: 11/27/2021 General Subjective: 51 yoF presents with primary OA of R hip. Has had ongoing hip and groin pain for past 3-4 years. Has tried nonsurgical tx including weight loss program in the past, which were not beneficial for pain management. Underwent R MILES; became acutely hypoxic and hypotensive during sx. Has h/o ebony. TKA, L femur fracture sx, and opiate use. Family/Caregiver Present: Yes () Pt presents supine in bed, agreeable to OT session. RN okay for pt to be seen OOB this date. Pt limited by pain throughout session, but was able to complete functional tasks including bed mobility, functional mobility, functional transfers, and post-op education. Pt demonstrated/verbalized understanding. Upon completion of session, pt returned to supine in bed with call light and needs in reach. RN updated on pt's performance. Patient Active Problem List Diagnosis Primary osteoarthritis of left hip Osteoarthritis of left hip, unspecified osteoarthritis type Past Medical History: Diagnosis Date Fractures Osteoarthritis Seasonal allergies Past Surgical History: Procedure Laterality Date CT CHEST ANGIOGRAM W AND/OR WO IV CONTRAST 11/28/2021 CT CHEST ANGIOGRAM W AND/OR WO IV CONTRAST 11/28/[address]21 [facility] [address] IMAGING FEMUR FRACTURE SURGERY Left X2 HYSTERECTOMY KNEE ARTHROPLASTY Bilateral KNEE ARTHROSCOPY W/ DEBRIDEMENT Bilateral PARTIAL HYSTERECTOMY Precautions Precautions LE Weight Bearing Status: WBAT, Left Medical Precautions: telemetry, posterior MILES, no bending lifting or twisting, log roll, IV, lifting (catheter) Pain Pain Assessment Pain Assessment: 0-10 Pain Score: 8 Pain Type: Surgical pain Pain Location: Hip Pain Orientation: Left Pain Radiating Towards: lower back Home Living Home Living Type of Home: Apartment (duplex) Lives With: Spouse, Son Home Adaptive Equipment: Walker rolling, Cane, Quad cane, Sock aid, Rollator Home Living Comments: Pt reports primarily used cane for ambulation. Ambulated indep without device when pain was not limiting movement for short household distances. Ambulated with walker for longer distances or when experiencing increased pain. Home Layout: Two level, Laundry main level, Stairs to alternate level with rails (recliner 1st level) Alternate Level Stairs-Number of Steps: 10 Home Access: Stairs to enter with rails Entrance Stairs-Rails: Left Entrance Stairs-Number of Steps: 5 Bathroom Shower/Tub: Tub/shower unit Bathroom Toilet: Standard Bathroom Equipment: Raised toilet seat without rails, Grab bars in shower, Tub transfer bench, Grab bars around toilet, Bedside commode (countertop near toilet to assist with sit/stands) Prior Level of Function Prior Function Level of [place]: Independent with ADLs and functional transfers, Independent with homemaking with ambulation (Cane/walker for ambulation) Receives Help From: Family ADL Assistance: Independent Homemaking Assistance: Independent Prior IADLs IADL History Homemaking Responsibilities: Yes Meal Prep Responsibility: Secondary Laundry Responsibility: Secondary Cleaning Responsibility: Secondary Homemaking Comments: Pt reports indep in completing IADLs PLOF and will be receiving assist from post-sx during recovery. Current License: Yes Cognition Cognition Overall Cognitive Status: Within Functional Limits Arousal/Alertness: Appropriate responses to stimuli Orientation Level: Oriented X4 Following Commands: Follows all commands and directions without difficulty Safety Judgment: Good awareness of safety precautions Deficits: Fully aware of deficits Attention Span: Appears intact Memory: Appears intact Problem Solving: Able to problem solve independently Communication: Intact Static Sitting Balance Static Sitting Balance Static Sitting-Balance Support: Right upper extremity supported, Left upper extremity supported, Feet supported Static Sitting-Level of Assistance: Close supervision Dynamic Sitting Balance Dynamic Sitting Balance Dynamic Sitting-Balance Support: Feet supported, Unilateral upper extremity supported Dynamic Sitting-Balance: Forward lean, Reaching for objects Dynamic Sitting Balance-Level of Assistance: Close supervision Static Standing Balance Static Standing Balance Static Standing-Balance Support: Right upper extremity supported, Left upper extremity supported Static Standing-Level of Assistance: Contact guard Dynamic Standing Balance Dynamic Standing Balance Dynamic Standing-Balance Support: Right upper extremity supported, Left upper extremity supported Dynamic Standing-Balance: Reaching for o (more content not included)... [facility] 11-28-2021 Note Pt is POD1 from left MILES. Lives at home with who works from home as well as adult son who works and goes to school but is available if needed. PT worked with pt today and currently recommending HHC vs. SNF and will depend on how pt does tomorrow. Discussed with pt/ and the goal is to discharge home with HHC but she would not be opposed to SNF if needed. Pt stated [facility] or [facility] would be fine for [facility]. Sent referral via [employer]. [facility] 11-28-2021 Note ------ Attestation signed by Aryan Vega at 11/28/2021 8:44 PM I personally saw and examined the patient on the same date of service as resident/fellow Dr. Chavis. I discussed the findings and therapeutic plan with the resident/fellow Dr. Chavis. I agree with the documentation, except for any edits/updates below. Teaching Physician's Revisions: None ------ Subjective Patient was resting in bed when seen. She complained of mild left hip pain. Otherwise, she had no other acute complaints. Denied chest pain or shortness of breath. Oxygen requirement has been decreasing and now only on 1L NC. D-dimer returned elevated, even with age-adjustment. Objective Patient Vitals for the past 24 hrs: BP Temp Temp src Pulse Resp SpO2 Height Weight 11/28/21 0800 106/62 36.4 ???C (97.6 ???F) -- 94 17 95 % -- -- 11/28/21 0603 -- -- -- -- -- -- -- 127 kg (279 lb 15.8 oz) 11/27/212019 118/75 36.9 ???C (98.5 ???F) Oral (!) 121 16 94 % -- -- 11/27/211999 -- -- -- -- -- 96 % -- -- 11/27/21 1910 109/65 37.1 ???C (98.8 ???F) Oral 104 18 94 % -- -- 11/27/21 1710 113/82 36.6 ???C (97.8 ???F) Oral 94 14 96 % 1.803 m (5' 11 ) -- 11/27/21 1628 109/70 -- -- 86 (!) 7 95 % -- -- 11/27/21 1620 (!) 101/45 -- -- 99 19 98 % -- -- 11/27/21 1605 122/76 -- -- 92 13 98 % -- -- 11/27/21 1550 111/78 -- -- 88 10 99 % -- -- 11/27/21 1535 117/72 -- -- 101 17 99 % -- -- 11/27/21 1520 105/76 37 ???C (98.6 ???F) Temporal 96 14 91 % -- -- 11/27/21 1500 -- -- -- -- -- 97 % -- -- Physical Exam Vitals reviewed. Constitutional: General: She is not in acute distress. Appearance: She is not ill-appearing or toxic-appearing. HENT: Head: Normocephalic and atraumatic. Mouth/Throat: Mouth: Mucous membranes are moist. Eyes: General: No scleral icterus. Extraocular Movements: Extraocular movements intact. Pupils: Pupils are equal, round, and reactive to light. Cardiovascular: Rate and Rhythm: Normal rate and regular rhythm. Heart sounds: Normal heart sounds. No murmur heard. No friction rub. No gallop. Pulmonary: Effort: Pulmonary effort is normal. No respiratory distress. Breath sounds: Normal breath sounds. No stridor. No wheezing or rales. Abdominal: General: There is no distension. Palpations: Abdomen is soft. There is no mass. Tenderness: There is no abdominal tenderness. There is no guarding. Musculoskeletal: Right lower leg: No edema. Left lower leg: No edema. Skin: Coloration: Skin is not jaundiced. Findings: No rash. Neurological: Mental Status: She is alert and oriented to person, place, and time. Mental status is at baseline. Cranial Nerves: No cranial nerve deficit. Psychiatric: Mood and Affect: Mood normal. Behavior: Behavior normal. Thought Content: Thought content normal. Judgment: Judgment normal. Lab Results Component Value Date NA 137 11/28/2021 K 4.4 11/28/2021 CL 105 11/28/2021 ANIONGAP 8 11/28/2021 BUN 19 11/28/2021 CREATININE 0.66 11/28/2021 CALCIUM 8.3 (L) 11/28/2021 No results found for: BILITOT, BILIDIR, ALKPHOS, AST, ALT, PROT, ALBUMIN Lab Results Component Value Date WBC 13.69 (H) 11/28/2021 RBC 3.96 11/28/2021 HGB 11.7 (L) 11/28/2021 HCT 36.0 11/28/2021 MCV 90.9 11/28/2021 MCH 29.5 11/28/2021 MCHC 32.5 11/28/2021 RDW 13.1 11/28/2021 PLT 381 11/28/2021 NRBC 0 04/11/2021 === Imaging Orders, Last 24 Hours === XR CHEST 1 VIEW - Impression - IMPRESSION: No evidence of active pulmonary disease. Electronically signed: Santos Campuzano. _ XR HIP 2 OR 3 VW LEFT - Impression - Satisfactory alignment status post joint replacement. Electronically signed: Moncho Beyer. Assessment/Plan Principal Problem: Primary osteoarthritis of left hip Active Problems: Osteoarthritis of left hip, unspecified osteoarthritis type Severe osteoarthritis of left hip - S/p total left hip arthroplasty Acute hypoxic respiratory failure - improving Hypotensive episode - resolved - Patient was undergoing procedure and the ortho team was doing an osseous invasive procedure such as drilling, and the patient became acutely hypoxic requiring 3L NC and was briefly hypotensive into 60s SBP - Differentials include fat embolism, air embolism, anaesthesia-induced hypoxia - D-dimer elevated - US doppler lower extremities with preliminary result of no DVT - Will obtain CT angiogram chest with contrast to rule out PE, Cr <1 this morning - On aspirin 325mg x2 for DVT prophylaxis per ortho Ori Chavis MD PGY2, Internal Medicine Resident [facility] 11-28-2021 Note Occupational Therapy Pt is unable to be seen for therapy at this time secondary to CT/TE. Pt currently off floor at this time. Will continue to check back as appropriate. Time attempted: 12:26 Mary Lou Zimmer S/OT This session was completed under the supervision of Ibrahima Louise OTR/L [facility] 11-28-2021 Note Subjective Doing well this morning. Denies chest pain or shortness of breath. Says her pain regimen is not enough. Objective Patient Vitals for the past 24 hrs: BP Temp Temp src Pulse Resp SpO2 Height Weight 11/27/212019 118/75 36.9 ???C (98.5 ???F) Oral (!) 121 16 94 % -- -- 11/27/211999 -- -- -- -- -- 96 % -- -- 11/27/21 191 109/65 37.1 ???C (98.8 ???F) Oral 104 18 94 % -- -- 11/27/21 1710 113/82 36.6 ???C (97.8 ???F) Oral 94 14 96 % 1.803 m (5' 11 ) -- 11/27/21 1628 109/70 -- -- 86 (!) 7 95 % -- -- 11/27/21 1620 (!) 101/45 -- -- 99 19 98 % -- -- 11/27/21 1605 122/76 -- -- 92 13 98 % -- -- 11/27/21 1550 111/78 -- -- 88 10 99 % -- -- 11/27/21 1535 117/72 -- -- 101 17 99 % -- -- 11/27/21 1520 105/76 37 ???C (98.6 ???F) Temporal 96 14 91 % -- -- 11/27/21 1500 -- -- -- -- -- 97 % -- -- 11/27/21 1042 (!) 145/93 36.1 ???C (97 ???F) Temporal 102 16 97 % -- -- 11/27/21 1031 -- -- -- -- -- -- 1.803 m (5' 11 ) 127 kg (280 lb 6.8 oz) Physical Exam Gen: Alert, no acute distress. LLE: Dressing is clean, dry and intact. SILT in SP/DP/T. DP pulse 2+. Firs ankle dorisflexors/plantarflexors/big toe extensor. Lab Results Component Value Date NA 138 11/27/2021 K 4.6 11/27/2021 CL 102 11/27/2021 ANIONGAP 9 11/27/2021 BUN 21 11/27/2021 CREATININE 0.77 11/27/2021 CALCIUM 9.0 11/27/2021 No results found for: BILITOT, BILIDIR, ALKPHOS, AST, ALT, PROT, ALBUMIN Lab Results Component Value Date WBC 14.15 (H) 11/27/2021 RBC 4.59 11/27/2021 HGB 13.6 11/27/2021 HCT 41.5 11/27/2021 MCV 90.4 11/27/2021 MCH 29.6 11/27/2021 MCHC 32.8 11/27/2021 RDW 13.2 11/27/2021 PLT 386 11/27/2021 NRBC 0 04/11/2021 === Imaging Orders, Last 24 Hours === XR CHEST 1 VIEW - Impression - IMPRESSION: No evidence of active pulmonary disease. Electronically signed: Santos Campuzano. _ XR HIP 2 OR 3 VW LEFT - Impression - Satisfactory alignment status post joint replacement. Electronically signed: Moncho Beyer. Assessment/Plan Principal Problem: Primary osteoarthritis of left hip Active Problems: Osteoarthritis of left hip, unspecified osteoarthritis type 51 yo f with hx of opiate use who had L MILES yesterday who had intra op episode of desat and hypotension. -Medicine to help rule out pulmonary process. -WBAT LLE with posterior hip precautions. -Will try Tiffany with scheduled home pain meds instead of norco. -ASA for dvt proph. -PT/OT. Alek Neumann Ortho PGY3 [facility] 11-27-2021 Note Patient: Keila Werner saloni Procedure Summary Date: 11/27/21 Room / Location: [facility] OPERATING ROOM 02 / [facility] Operating Room Anesthesia Start: 1242 Anesthesia Stop: 1515 Procedure: ARTHROPLASTY, HIP, TOTAL (Left: Hip) Diagnosis: Osteoarthritis of left hip, unspecified osteoarthritis type Protrusio acetabuli Class 3 obesity (CMS/HCC) (Osteoarthritis of left hip, unspecified osteoarthritis type [M16.12]) Surgeons: Leo Ortega MD Responsible Provider: Gerry Smith MD Anesthesia Type: general ASA Status: 2 Anesthesia Type: general Vitals Value Taken Time BP 122/76 11/27/21 1605 Temp 37 ???C (98.6 ???F) 11/27/21 1520 Pulse 85 11/27/21 1619 Resp 13 11/27/21 1619 SpO2 96 % 11/27/21 1619 Vitals shown include unvalidated device data. Anesthesia Post Evaluation Patient location during evaluation: PACU Patient participation: complete - patient participated Level of consciousness: awake Pain score: 1 Pain management: adequate Cardiovascular status: acceptable Respiratory status: room air and acceptable Hydration status: acceptable No notable events documented. [facility] 11-27-2021 Note Airway Date/Time: 11/27/2021 12:55 PM Urgency: elective Airway not difficult General Information and Staff Patient location during procedure: OR Anesthesiologist: Zan Celestin MD Resident/VARNISH COOKER/CAA: WOODY Lee Performed: other anesthesia staff Indications and Patient Condition Indications for airway management: anesthesia Spontaneous Ventilation: absent Sedation level: deep Preoxygenated: yes Mask difficulty assessment: 1 - vent by mask Final Airway Details Final airway type: endotracheal airway Successful airway: ETT Cuffed: yes Successful intubation technique: video laryngoscopy Facilitating devices/methods: cricoid pressure Endotracheal tube insertion site: oral Blade: Esparza Blade size: #3 ETT size (mm): 7.5 Cormack-Lehane Classification: grade I - full view of glottis Placement verified by: chest auscultation Measured from: lips ETT to lips (cm): 22 Number of attempts at approach: 1 Additional Comments Eyes taped after induction, before airway management; Intubation by medical student [facility] 11-27-2021 Note Patient: Keila guallpa Procedure Information Date/Time: 11/27/21 1130 Procedure: ARTHROPLASTY, HIP, TOTAL (Left: Hip) - Jason REP NOTIFIED TE Location: [facility] OPERATING ROOM 02 / [facility] Operating Room Surgeons: Leo Ortega MD Relevant Problems No relevant active problems Clinical information reviewed: Tobacco Allergies Meds Med Hx Surg Hx OB Status Fam Hx Soc Hx Physical Exam Airway Mallampati: II TM distance: >3 FB Neck ROM: full Cardiovascular Rhythm: regular Rate: normal Dental Pulmonary - normal exam Abdominal - normal exam Anesthesia Plan ASA 2 general The patient is not a current smoker. Patient was not previously instructed to abstain from smoking on day of procedure. Patient did not smoke on day of procedure. intravenous induction Postoperative administration of opioids is intended. Anesthetic plan and risks discussed with patient. Use of blood products discussed with patient who consented to blood products. Plan discussed with CAA. Additional Equipment Requests [facility] 10-29-2021 Note CONSULTATION CONSULTATION DATE: 10/29/2021 CHIEF COMPLAINT: Severe left hip pain and left knee pain. HISTORY OF PRESENT ILLNESS: This is a very pleasant, 51-year-old female, who has severe osteoarthritis of the left hip. The patient is scheduled for seeing an orthopedic surgeon on November 06 at [facility] for a total hip replacement. 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 Activities aggravate the patient's pain. The patient reports pain as a 5/10. Currently, she takes Tylenol on a p.r.n. basis, Navarre 5/325 four tablets a day, baclofen 10 mg h.s. The patient has also been started prednisone 10 mg , and we have suggested to the patient that she taper this. The patient's PAST MEDICAL HISTORY / SURGICAL HISTORY / REVIEW OF SYSTEMS are noted on the chart, along with the MEDICATION LIST / ALLERGIES. PHYSICAL EXAMINATION: Upon physical examination, this is a pleasant, cooperative female, who appears to be uncomfortable. The patient ambulates with a cane. The patient is very focused with regards to getting better. VITAL SIGNS: Stable at 142/89 with a heart rate of 53. At a height of 5'11 , the patient weighs 277 kg. FOCUSED EVALUATION: Tenderness is noted along the posterior elements. The patient's hip examinations were not performed, given the fact that the patient is bone on bone. EXTREMITIES: Slight pedal edema is present bilaterally. MUSCULOSKELETAL: Intact; however, quality of the musculature is poor. NEUROLOGICALLY: No radicular symptomatology at this time. PSYCHIATRICALLY: Affect is appropriate. The patient maintains a positive attitude. IMPRESSION: Current working diagnosis on the patient is severe osteoarthritis of the hip, left hip; painful left knee. PLAN: The patient is scheduled for a total hip replacement on November 06 at [facility]. As such, we will maintain for the patient to return post surgical. [facility] 07-02-2021 Note CONSULTATION CONSULTATION DATE: 07/02/2021 CHIEF COMPLAINT: Left hip pain, left leg pain. HISTORY OF PRESENT ILLNESS: This is a 51-year-old female who is known to the [facility]. The patient recently had a reconstructive surgery of her right leg at [facility]. The patient had bone grafts, removal of fractured screws and plate. The patient states the surgery took longer than anticipated. Subsequent to the surgery, the patient had pain in her left hip. The patient states she has difficulty in being able to bend her leg. The patient ambulates with a tripod cane. The patient currently reports pain as a 2-3/10, a burning pain. The patient takes Advil on a p.r.n. basis, Navarre 5/325 two tablets b.i.d. and baclofen 10 mg h.s. The patient also takes Tylenol intermittently. Education was done with regards to the acetaminophen dosage. The patient's PAST MEDICAL HISTORY / SURGICAL HISTORY / REVIEW OF SYSTEMS are noted on the chart. No recent RADIOLOGICAL IMAGES are available, subsequent to the surgery. The patient is to bring the disc on her next visit. Standing, walking too long aggravate the pain as does housework, bending, climbing stairs aggravate the pain. Hot showers mitigate the pain as does ice therapy help mitigate the pain. PHYSICAL EXAMINATION GENERAL: Upon physical examination, this is a pleasant, cooperative female, who does not appear to be in any acute distress. VITAL SIGNS: Stable at 145/82 with a heart rate of 71. At a height of 5'11 , the patient weighs 124 kg. FOCUSED EVALUATION: The patient has hinge stance. The patient is slow to get up out of the chair; however, once moving, is able to move freer. Focused evaluation along the left hip, point palpation with reproduction of the patient's trochanteric bursa pain is noted. MUSCULOSKELETAL: The patient's motor is intact in the lower extremity at 5/5. NEUROLOGICALLY: No radicular symptomatology. PSYCHIATRICALLY: Affect is appropriate. IMPRESSION: Left hip pain, left trochanteric bursitis, status post left femur revision. PLAN: Education was done with regards to the acetaminophen component. The patient is to follow up with the surgeon at [facility] next week. We requested that the patient bring the x-ray images along with the surgeons report with regards to her left hip. In addition to this, we would look to get authorization of the left trochanteric burse. Should the bursa injection be needed. The patient understands and would like to proceed. CC: Maribell Alvarez M.D. [facility] Signed and Approved by: DR MO PELLETIER . 07/16/2021 11:41:00 [facility] 05-01-2021 Note MR#: [id number] [facility] Pt. Name: Keila Richardson Admitted: 04/10/2021 Discharged: 04/16/2021 Date of : 1970 Physician: Charly Farias M.D. DISCHARGE SUMMARY DISCHARGE PHYSICIAN: Charly Farias M.D. PRIMARY DIAGNOSIS: Right distal femur nonunion. SECONDARY DIAGNOSES: Muscle spasm, hypertension, chronic pain. HOSPITAL COURSE: The patient presented to the preoperative holding area for planned elective revision of a right distal femur nonunion with iliac crest bone graft harvest. She underwent surgery without complication and was admitted postoperatively for pain control, PT/OT, and possible placement. She also completed an extended course of postoperative prophylactic antibiotics due to the duration of surgery and the large amount of surgical dissection required. She was on Lovenox for DVT prophylaxis while inpatient and discharged on Eliquis for DVT prophylaxis. She worked with physical therapy extensively over the course of her stay and was eventually able to be discharged home. DISPOSITION AND DISCHARGE: The patient was discharged home in stable condition. INSTRUCTIONS: The patient will be nonweightbearing to the operative extremity for a time period, to be based upon radiographic signs of healing. She will continue with Eliquis for DVT prophylaxis. She was discharged with a short course of oral narcotic pain medication and a short course for prophylactic coverage. We will see the patient in approximately 2 weeks in clinic with new x-rays, for wound evaluation and suture removal. We anticipate the patient being nonweightbearing for approximately 8-12 weeks based on fracture healing. Electronically Signed by: Charly Farias M.D. 05/02/2021 09:00 A Charly Farias M.D. I have reviewed this discharge summary and confirmed the resident's documentation. Please note that there may be additional documentation from me. Date Dict: 05/01/2021/01:16 P/Chriss Chery MD Date Trans: 05/01/2021 01:43 P/stacy [id number] cc: Maribell Alvarez M.D. [place] [id number] [facility] [id number] [facility] 03-26-2021 Note CONSULTATION CHIEF COMPLAINT: Right leg pain and left groin pain. HISTORY OF PRESENT ILLNESS: This is a 50-year-old female who has unfortunately had a spiral fracture of her right femur. The patient has been seen by Dr. 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 The patient is currently doing well. She is maintained on Navarre 5/325 b.i.d. and Baclofen 10 mg which was increased to b. i.d. The patient reports pain 4 over 5 to 6 over 10, deep grinding pain. Sitting too long, laying too long, walking too long aggravates the patient's pain. Pain is worse in the evening compared to the morning. Climbing stairs and activities aggravate the pain. The patient ambulates with a tripod cane. The patient is accompanied by her . The patient takes Aleve 800 mg b.i.d., Navarre 5/325 b.i.d. two tablets, Baclofen 10 mg h.s. PAST MEDICAL HISTORY, SURGICAL HISTORY, REVIEW OF SYSTEMS ARE NOTED ON THE CHART ALONG WITH THE MEDICATION LIST, ALLERGIES AND RADIOLOGICAL IMAGES WHICH WERE REVIEWED IN OFFICE TODAY. PHYSICAL EXAMINATION: Upon physical examination this is a pleasant, cooperative female who appears to be much more controlled and composed. VITAL SIGNS: Blood pressure 128/82, heart rate 66, height 5'11 , weight 129 kg. The OARRS report was reviewed. FOCUSED EXAMINATION: The patient still has tenderness along the ITP band. The patient has overt tenderness along the trochanteric bursa which has diminished substantially. Deep muscle testing was not performed given the fact that the patient has non-union fracture. The patient is able to weightbearing, significantly better than in the past. NEUROLOGICAL: No radicular symptomatology is noted. The patient also has a left groin paint that she feels is secondary to ambulating in an antalgic manner. CURRENT WORKING DIAGNOSIS: Status post fracture right femur, nonunion, pending surgery by Dr. Ruff. In the interim we will provide Baclofen 10 mg one tablet p.o., b.i.d. along with maintaining the Navarre 5/325 1-2 tablets on a b.i. d. basis. The patient was educated as to mitigating and decreasing her narcotic levels so that postoperatively she would have a better recovery. Questions and answers were done. The patient will be followed up subsequent to the surgery. [facility] Signed and Approved by: DR MO PELLETIER . 04/02/2021 08:56:00 [facility] 11-30-2020 Evaluation note Encounter Date Diagnosis Assessment Notes Nov, Other fracture of lower end of right femur, subsequent encounter for closed fracture with nonunion (ICD-10 - S72.491K) Radiographs reviewed with patient as delayed healing/nonun ion of the femur. Instructed on continued use of the bone stimulator, as well as limited weight bearing. Advised patient based on her insurance, she will need to be referred to another facility that does take her insurance. Nov, Obesity, unspecified classification, unspecified obesity type, unspecified whether serious comorbidity present (ICD-10 - E66.9) Nov, Other specified postprocedural states (ICD-10 - Z98.890) Patient will have f/u xray at [facility] in 4 weeks. 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) Nov, Nicotine abuse (ICD-10 - Z72.0) [facility] Other 10-20-2021 Evaluation note* Encounter Date Diagnosis Assessment Notes Treatment Notes Treatment Clinical Notes Nov, Other type III open fracture of distal end of right femur with routine healing, subsequent encounter (ICD-10 - S72.491F) Nov, Other closed fracture of distal end of right femur with routine healing, subsequent encounter (ICD-10 - S72.491D) [facility] Other 10-08-2021 Evaluation note* Encounter Date Diagnosis Assessment Notes Treatment Notes Treatment Clinical Notes Nov, Other closed fractur e of distal end of right femur with delayed healing, subsequent encounter (ICD-10 - S72.491G) We will proceed with CT scan to assess for extent of fracture healing. Bone stimulator ordered. Refer patient to pain management Nov, Other fracture of lower end of right femur, subsequent encounter for closed fracture with nonunion (ICD-10 - S72.491K) Nov, Failed orthopedic implant, initial encounter (ICD-10 - T84.498A) Nov, Obesity, unspecified classification, unspecified obesity type, unspecified whether serious comorbidity present (ICD-10 - E66.9) Nov, Nicotine abuse (ICD-10 - Z72.0) Nov, Other specified postprocedural states (ICD-10 - Z98.890) [employer] Other Evaluation noteNo InformationNort[facility] [employer] Other Evaluation noteNo assessment information available [facility] Work Phone: Evaluation note* Diagnosis Onset Date Resolution Status Contusion of shoulder, right acute Internal derangement of right shoulder acute Pain of right hip acute Rotator cuff tear, right acu te [facility] Work Phone: Evaluation note* Diagnosis Onset Date Resolution Status Contusion of shoulder, right acute Internal derangement of right shoulder acute Pain of right hip acute Rotator cuff tear, right acu te Contusion of shoulder, right acute Internal derangement of right shoulder acute Pain of right hip acute Rotator cuff tear, right acu te [facility] Work Phone: History general Narrative - Reported* Type Description Date Medical History Arthritis Surgical History Bilateral total knee replacemen t Surgical History Hysterectomy Hospitalization History See past surgical hx [employer] [facility] [employer] Other History general Narrative - Reported* Type Description Date Medical History Arthritis Surgical History Bilateral total knee replacemen t Surgical History Hysterectomy Surgical History Right Femur Hospitalization History See past surgical hx [employer] Other Hospital Discharge instructions Additional Instructions As we discussed, there is no evidence of any fractures. Given your shoulder pain and inability to lift your shoulder away from your body, I am concerned about a rotator cuff tear. Sling is for comfort. Follow-up with the orthopedics doctor as we discussed. I did prescribe medication for pain. I will also prescribe a gentle laxative.[facility] Work Phone: Summary Purpose Family History No Family History Records Found Relationship Condition Age at Onset Recorded Date/T michelle Not Specified No pertinent family history Unknown father Heart disease Unknown Unknown mother Hypertension Unknown Advance Directives No Advanced Directives Records Found Advance Directive Response Recorded Date/ Time Advance Directives No July 28 3:32am Reason for Referral Reason Please Refer pat ient to pain management due to continued pain following surgery Diagnosis 1 Other closed fractur e of distal end of right femur with delayed healing, subsequent encounter (Y94.237C) Referral Organization [facility] [place] [facility] Referring Provider First Name Shaina Referring Provider Last Name Eileen Referring Provider Specialty Hand Surger y Referred Organization [facility] Referred Provider Mo Pelletier Referred Address [address], [place],[address] Referred Provider Specialty Pain Medicin e Referral Priority Routine General Notes Hallie Wilkinson 11:26:16 AM >P2P Shu Glass 11/20/2020 04:43:43 PM > Patient called asking for a referral to [facility] pain management due to her insuranceHallie Wilkinson 11/22/2020 02:13:28 PM >[facility] does not have pain management, I called and spoke with patient and she asked for referral to be sent to [facility] since they take her insurance. Completed referral form for Dr Pelletier and informed patient that she will be contacted directly by his office to schedule appointment. Chief Complaint and Reason for Visit Chief Complaint Fall: rt shoulder in [facility] Chief Complaint Fall: rt shoulder in [facility] RT SHOULDER PAIN WX Reason for Visit Contusion of shoulde r, right Internal derangement of right shoulder Pain of right hip Rotator cuff tear, right Chief Complaint Fall: rt shoulder in [facility] RT SHOULDER PAIN WX M24.811 - Other specific joint derangements of rig 1 WEEK WX Reason for Visit Contusion of shoulde r, right Internal derangement of right shoulder Pain of right hip Rotator cuff tear, right Contusion of shoulder, right Internal derangement of right shoulder Pain of right hip Rotator cuff tear, right Chief Complaint Fall: rt shoulder in [facility] RT SHOULDER PAIN WX M24.811 1 WEEK WX Reason for Visit Contusion of shoulde r, right Internal derangement of right shoulder Pain of right hip Rotator cuff tear, right Contusion of shoulder, right Internal derangement of right shoulder Pain of right hip Rotator cuff tear, right Additional Source Comments INFORMATION SOURCE (unrecogn ized section and content) DATE CREATED AUTHOR 03/26/2021 [facility] DATE CREATED AUTHOR AUTHOR'S ORGANIZ ATION 10/19/2021 [facility] DATE CREATED AUTHOR AUTHOR'S ORGANIZ ATION 02/05/[address] [facility] DATE CREATED AUTHOR AUTHOR'S ORGANIZ ATION 03/18/2022 [facility] DATE CREATED AUTHOR AUTHOR'S ORGANIZ ATION 06/16/2023 [facility] DATE CREATED AUTHOR AUTHOR'S ORGANIZ ATION 09/10/2023 [facility] DATE CREATED AUTHOR AUTHOR'S ORGANIZ ATION 09/29/2023 [facility] d[facility] Specialists EPIC REASON FOR VISIT (unrecogniz ed section and content) Recheck Right KneeNo Informa tionNo InformationCT scanReview CT [facility] referralNo Informationxray orderxray images Care Teams (unrecognized sec tion and content) Team Status: Active Member Role Status Dates Maribell Alvarez MD Primary Care Provider Active Team Status: Inactive Member Role Status Dates Maribell Alvarez MD Primary Care Provider Active S tart: August 26, 2023 End: August 27, 2023 Moncho Chao Jr, MD Emergency Provider Active Start: August 26, 2023 End: August 27, 2023 Team Status: Inactive Member Role Status Dates Maribell Alvarez MD Primary Care Provider Active S tart: August 31, 2023 End: August 31, 2023 Moncho Johnson MD Attending Provider Active Star t: August 31, 2023 End: August 31, 2023 Team Status: Active Member Role Status Dates Moncho Johnson MD Attending Provider Active Star t: September 08, 2023 Maribell Alvarez MD Primary Care Provider Active S tart: September 08, 2023 Team Status: Inactive Member Role Status Dates Maribell Alvarez MD Primary Care Provider Active S tart: September 08, 2023 End: September 08, 2023 Moncho Johnson MD Attending Provider Active Star t: September 08, 2023 End: September 08, 2023 Team Status: Inactive Member Role Status Cheyanne Johnson MD Attending Provider Active Star t: September 08, 2023 End: September 08, 2023 Maribell Alvarez MD Primary Care Provider Active S tart: September 08, 2023 End: September 08, 2023 Goals (unrecognized section and content) Goals may be documented in a n alternate section FOR RECORDS PERTAINING TO PATIENTS WHO ARE OR HAVE BEEN ENROLLED IN A CHEMICAL DEPENDENCY/SUBSTANCEABUSE PROGRAM, SOME INFORMATION MAY BE OMITTED. This clinical summary was aggregated from multiple sources. Caution should be exercised in using it in the provision of clinical care. This summary normalizes information from multiple sources, and as a consequence, information in this document may materially change the coding, format and clinical context of patient data. In addition, data may be omitted in some cases. CLINICAL DECISIONS SHOULD BE BASED ON THE PRIMARY CLINICAL RECORDS. [facility] [employer] provides no warranty or guarantee of the accuracy or completeness of information in this document.
== END 2023-10-01 14:29 | disposition home or self-care (01) ==
LOC: MAMMO 14:28
PROVIDERS: PCP Physician Assistant; Visit Provider Physician Assistant
DX: Z12.31 Encounter for screening mammogram for malignant neoplasm of breast (principal); Z78.0 Asymptomatic menopausal state; N63.13 Unspecified lump in the right breast, lower outer quadrant
CPT/HCPCS: 77063; 77067; 77080

== ENCOUNTER 2023-11-04 10:59 | Outpatient (OUT) | payer OTHER, SELFPAY ==
--- NOTE | 2023-11-04 11:03 | MM_ITS ---
Patient Name: CHASITY STEVENSON MR#: [id number] : 1970 Exam Date: 11/04/2023 Ordering Doctor: KELVIN Berger . RADIOLOGY REPORT PROCEDURE: MM DIAGNOSTIC MAMMO UNILAT RT, 11/04/2023, 11:03 US BREAST RT LIMITED, 11/04/2023, 11:30 COMPARISON: MM TOMOSYNTHESIS SCREENING BI, 10/01/2023. INDICATIONS: Abnormal Mammogram R92.8 Calculator Name NCI Breast Cancer Risk Assessment Tool 5 Year Breast Cancer Risk 1.20% Lifetime Breast Cancer Risk 9.60% Personal Breast Cancer No Personal Ovarian Cancer No Treatments None Family Cancers None LOCATION: [facility] BREAST COMPOSITION: There are scattered areas of fibroglandular density. FINDINGS: DIAGNOSTIC CATEGORY 4--SUSPICIOUS FOR MALIGNANCY. FINDING DOES NOT EXHIBIT CLASSIC FINDINGS OF BREAST CANCER: RIGHT BREAST: Spot magnification views demonstrate a slightly irregular 7 x 4 x 5 mm mass within the anterior lower-outer quadrant. Ultrasound evaluation demonstrates a mixed cystic and solid irregular mass 6 x 4 x 3 millimeters which is taller than wide and is slightly hyperechoic along its margins. Ultrasound-guided tissue sampling is recommended. RECOMMENDATIONS: ULTRASOUND-GUIDED CORE BIOPSY: RIGHT BREAST PLEASE NOTE: A NORMAL MAMMOGRAM DOES NOT EXCLUDE THE POSSIBILITY OF BREAST CANCER. A CLINICALLY SUSPICIOUS PALPABLE LUMP SHOULD BE BIOPSIED. Dictated by: Jose Angel Saldana M.D. on 11/04/2023 at 11:42 Approved by: Jose Angel Saldana M.D. on 11/04/2023 at 11:50
--- OUTSIDE RECORDS SUMMARY | 2023-11-04 11:09 | XMS_ITS | CCD ---
Author Organization [facility] Care Team Providers Care [employer] Name Role Phone Shaina Arellano Unavailable ANTONIO, DR REYNA Consulting Unavailable ANTONIO, DR REYNA Primary Care Unavailable MISC, DR PEREZ Attending Unavailable MISC, DR PEREZ Admitting Unavailable OROPEZAALEXANDRA ARCHER Consulting Unavailable ANTONIO, DR REYNA Primary Care Unavailable CYNTHIA, DR MO Hoffman Attending Unavailable PELLETIER, DR MO Hoffman Admitting Unavailable CYNTHIA, DR MO Hoffman Consulting Unavailable ANTONIO, DR [...] VITHAL Referring Unavailable MONET MULLINS Attending Unavailable SHENDGE, DEREKHAL Attending Unavailable RACHELEDEREKHAL Attending Unavailable RACHELE, VITHAL Admitting Unavailable Lois Che Attending Unavailable MD Maribell Alvarez Primary Care Provider [phone] MD Moncho Chao Jr Emergency Provider MD Moncho Johnson Attending Provider Moncho Chao Jr Attending Unavailable Moncho Chao Jr Admitting Unavailable Maribell Alvarez Primary Care Unavailable Maribell Alvarez Primary Care Unavailable Moncho Johnson Attending Unavailable Alex, Moncho Admitting Unavailable Maribell Alvarez Primary Care Unavailable Moncho Johnson Attending Unavailable Moncho Johnson Admitting Unavailable MARIBELL ALVAREZ Attending Unavailable DAJA PENA Attending Unavailable DAJA PENA Attending Unavailable Allergies Allergy Classification Reported Allergen(s) Allergy Type Date of Onset Reaction(s) Facility (1 source) ADHESIVE TAPE-SILICONES; Translations: [ADHESIVE TAPE-SILICONES] Propensity to adverse reactions to drug (disorder) 2 [facility] Repository Medications Current Medications Medication Drug Class(es) Dates Sig (Normalized) Sig (Original) acetaminophen 500 mg oral tablet (6 sources) Start: 08-08-2020 take 500 mg by mouth every four hours Acetaminophen Active 500 MG PO Q4H 100 August 08, 2020 12:00am ascorbic acid 500 mg oral tablet (20 sources) Vitamin C Start: 08-03-2020 End: 08-09-2020 take 1 tablet by mouth once daily Ascorbic Acid (Vitamin C) (Vitamin C) 500 mg Tablet Active 500 MG PO Daily August 08, 2020 12:00am Boswellia Teresa-Turmeric Xt (1 source) Start: 10-08-2023 Boswellia Teresa-Turmeric Xt Active CAP PO October 08, 2023 12:00am Calcium & Magnesium Carbonates (9 sources) Calcium & Magnes ium Carbonates Active Calcium 600 + D 600-200 MG-UNIT (9 sources) Start: 09-05-2020 take 1 tablet by mouth three times daily Calcium 600 + D 600-200 MG-UNIT 1 tablet Orally TID for 30 day(s) Aug, Active ibuprofen 200 mg oral tablet (10 sources) Nonsteroidal Anti-inflammatory Drug Start: 10-08-2023 take 1 tablet by mouth every six hours Ibuprofen (Advil) 200 mg tablet Active 200 MG PO Every 6 hours October 08, 2023 12:00am take 1 tablet by dylan th three times daily at mealtime as needed Advil 200 MG 1 tablet with food or milk as needed Orally Three times a day Active Multivital-M (9 sources) Multivital-M Ora lly Active Multivitamin preparation (5 sources) Start: 08-31-2023 take 1 tablet by mouth once daily Multivitamin Active 1 TAB PO Daily August 31, 2023 12:00am Turmeric extract (5 sources) Start: 08-31-2023 Turmeric Active MG PO August 31, 2023 12:00am Completed/Discontinued Medications Medication Drug Class(es) Dates Sig (Normalized) Sig (Original) acetaminophen 325 mg / HYDROcodone bitartrate 5 mg oral tablet (20 sources) Opioid Agonist Start: 09-08-2023 End: 10-08-2023 take 1 tablet by mouth twice daily Hydrocodone-Acetami nophen Discontinued 1 TAB PO Twice daily 11 15September 08, 2023 October 08, 2023 10:06am ten Start: 08-31-2023 End: 08-31-2023 take 1 tablet by mouth twice daily Hydrocodone-Acetaminophen Discontinued 1 TAB PO Twice daily 11 15August 31, 2023 August 31, 2023 1:12pm ten [...] August 08, 2020 August 27, 2023 2:32am baclofen 10 mg oral tablet (5 sources) gamma-Aminobutyric Acid-ergic Agonist Start: 08-31-2023 End: 10-08-2023 take 10 mg by mouth once daily Baclofen Discontinued 10 MG PO Daily August 31, 2023 12:00am October 08, 2023 10:06am Calcium Carbonate-Cindy min D3 (Oyster Shell Calcium-Vit D3) 500 mg(1,250mg) -200 unit Tablet (12 sources) Start: 08-08-2020 End: 10-08-2023 take 2 tablets by mouth once at mealtime Calcium Carbonate-Vitamin D3 (Oyster Shell Calcium-Vit D3) 500 mg(1,250mg) -200 unit Tablet Discontinued 2 TAB PO 3x/Day with meals August 08, 2020 12:00am October 08, 2023 10:06am Start: 08-08-2020 take 2 tablets by mo ut once at mealtime Calcium Carbonate-Vitamin D3 (Oyster Shell Calcium-Vit D3) 500 mg(1,250mg) -200 unit Tablet Active 2 TAB PO 3x/Day with meals August 08, 2020 12:00am Start: 08-03-2020 End: 08-09-2020 take 1 tablet by mouth once at mealtime Calcium Carbonate-Vitamin D3 (Oyster Shell Calcium-Vit D3) 500 mg(1,250mg) -200 unit Tablet Discontinued 1 TAB PO 3x/Day with meals August 03, 2020 12:00am August 09, 2020 10:01am cyclobenzaprine hydrochloride 5 mg oral tablet (16 sources) Muscle Relaxant Start: 08-03-2020 End: 08-31-2023 take 5 mg by mouth every eight hours Cyclobenzaprine Discontinued 5 MG PO Q8H August 08, 2020 12:00am August 31, 2023 12:43pm Start: 01-17-2014 take 1 tablet by dylan th every eight hours Cyclobenzaprine HCl 10 MG 1 tablet Orally every 8 hours Jan, Active docusate sodium 100 mg oral capsule (12 sources) Start: 08-03-2020 End: 08-31-2023 take 1 capsule by mouth twice daily Docusate Sodium (Dok) 100 mg Capsule Discontinued 100 MG PO Twice daily 60 August 08, 2020 12:00am August 31, 2023 12:43pm docusate sodium 50 mg / sennosides, chcf 8.6 mg oral tablet (6 sources) Start: 08-27-2023 End: 10-08-2023 take 2 tablets by mouth once daily at bedtime Sennosides-Docusat e Sodium (Senna Plus) 8.6-50 mg tablet Discontinued 2 TAB PO Daily at bedtime August 27, 2023 12:00am October 08, 2023 10:07am 0.3 ml enoxaparin sodium 100 mg/ml prefilled syringe (12 sources) Low Molecular Weight Heparin Start: 08-03-2020 End: 08-31-2023 Enoxaparin (Lovenox) 30 mg/0.3 mL Syringe Discontinued 30 MG SUBCUT Every 12 hours at 1000 & 2200 August 08, 2020 12:00am August 31, 2023 12:43pm ferrous sulfate 324 mg delayed release oral tablet (12 sources) Start: 08-03-2020 End: 08-31-2023 take 324 mg by mouth twice daily Ferrous Sulfate Discontinued 324 MG PO Twice daily 60 August 08, 2020 12:00am August 31, 2023 12:43pm lidocaine 0.04 mg/mg medicated patch (12 sources) Antiarrhythmic, Amide Local Anesthetic Start: 08-03-2020 End: 08-31-2023 apply 1 dose topically once daily Lidocaine (Lidocaine Pain Relief) 4 % Adhesive Patch,Medicated Discontinued 1 PATCH TOPICAL Daily August 08, 2020 12:00am August 31, 2023 12:42pm melatonin 5 mg oral tablet (12 sources) Start: 08-03-2020 End: 08-31-2023 take 5 mg by mouth once daily at bedtime Melatonin Discontinued 5 MG PO Daily at bedtime August 08, 2020 12:00am August 31, 2023 12:42pm Sennosides (Senna Lax) 8.6 mg Tablet (12 sources) Start: 08-08-2020 End: 08-31-2023 take 2 tablets by mouth twice daily Sennosides (Senna Lax) 8.6 mg Tablet Discontinued 17.2 MG PO Twice daily 60 August 08, 2020 12:00am August 31, 2023 12:44pm Start: 08-08-2020 take 2 tablets by mo uth twice daily Sennosides (Senna Lax) 8.6 mg Tablet Active 17.2 MG PO Twice daily 60 August 08, 2020 12:00am Start: 08-03-2020 End: 08-09-2020 take 2 tablets by mouth twice daily Sennosides (Senna Lax) 8.6 mg Tablet Discontinued 2 TAB PO Twice daily 0 August 03, 2020 12:00am August 09, 2020 10:01am Problems Active Problems Problem Classification Problem Date Documented Date Episodic/Chronic Acute posthemorrhagic anemia (12 sources) Anemia following acute postoperative blood loss; Translations: [Acute posthemorrhagic anemia] 01-21-2023 Episodic Administrative/social admission (6 sources) Other reduced mobility; Translations: [Impaired mobility and activities of daily living] 01-21-2023 Episodic E Codes: Fall (6 sources) Fall on same level from slipping, tripping or stumbling ; Translations: [Fall on same level from slipping, tripping and stumbling without subsequent striking against object, initial encounter] 08-27-2023 Episodic Fluid and electrolyte disorders (12 sources) Hyponatremia; Translations: [Hypo-osmolality and hyponatremia] 01-21-2023 [...] Onset: 12-11-2021 Chronic Other connective tissue disease (6 sources) History of total knee arthroplasty; Translations: [Presence of unspecified artificial knee joint] 01-21-2023 Chronic Other connective tissue disease (4 sources) Pain in right foot; Translations: [PAIN IN RIGHT FOOT] Onset: 01-28-2022 Episodic Other connective tissue disease (6 sources) Pain in right lower limb; Translations: [Pain in right leg] 01-21-2023 Episodic Other connective tissue disease (5 sources) Tear of right rotator cuff; Translations: [Unspecified rotator cuff tear or rupture of right shoulder, not specified as traumatic] 08-31-2023 Episodic Other connective tissue disease (11 sources) Unspecified rotator cuff tear or rupture of right shoulder, not specified as traumatic; Translations: [Rotator cuff (capsule) sprain] Onset: 10-06-2023 08-31-2023 Episodic Other connective tissue disease (1 source) Supraspinatus tear; Translations: [Unspecified rotator cuff tear or rupture of right shoulder, not specified as traumatic] 10-08-2023 Episodic Other injuries and conditions due to external causes (6 sources) History of fall; Translations: [History of falling] 01-21-2023 Episodic Other nervous system disorders (1 source) Chronic pain syndrome; Translations: [CHRONIC PAIN SYNDROME] Onset: 01-28-2022 Chronic Other nervous system disorders (2 sources) Other chronic pain; Translations: [Other chronic pain] Onset: 12-13-2021 Chronic Other nervous system disorders (6 sources) Postoperative pain ; Translations: [Other acute postprocedural pain] 01-21-2023 Episodic Other non-traumatic joint disorders (5 sources) Derangement of right shoulder joint; Translations: [Other specific joint derangements of right shoulder, not elsewhere classified] 08-31-2023 Chronic Other non-traumatic joint disorders (10 sources) Other specific joint derangements of right shoulder, not elsewhere classified; Translations: [Other specified disorders of joint, shoulder region] Onset: 09-08-2023 08-31-2023 Chronic Other non-traumatic joint disorders (4 sources) Pain in left hip; Translations: [PAIN IN LEFT HIP] Onset: 01-23-2022 Episodic Other non-traumatic joint disorders (1 source) Pain in left knee; Translations: [PAIN IN LEFT KNEE] Onset: 01-28-2022 Episodic Other non-traumatic joint disorders (7 sources) Pain in right shoulder; Translations: [Acute pain of right shoulder] Onset: 08-26-2023 08-27-2023 Episodic Other non-traumatic joint disorders (5 sources) Hip pain; Translations: [Pain in right hip] 08-31-2023 Episodic Other non-traumatic joint disorders (9 sources) Pain in right hip; Translations: [Pain in joint, pelvic region and thigh] 08-31-2023 Episodic Other nutritional; endocrine; and metabolic disorders (15 sources) Obesity; Translations: [Obesity, unspecified] 01-21-2023 Chronic Other nutritional; endocrine; and metabolic disorders (2 sources) Obesity, unspecified; Translations: [Obesity, unspecified classification, unspecified obesity type, unspecified whether serious comorbidity present E66.9] Onset: 11-16-2020 Resolved: 11-30-2020 Chronic Other screening for suspected conditions (not mental disorders or infectious disease) (6 sources) Protein level - finding; Translations: [Other specified abnormal findings of blood chemistry] 01-21-2023 Episodic Residual codes; unclassified (2 sources) Genetic susceptibility to other disease; Translations: [Genetic susceptibility to other disease] Onset: 01-14-2022 Episodic Residual codes; unclassified (6 sources) Patient encounter status; Translations: [Encounter for prophylactic measures, unspecified] 01-21-2023 Episodic Sprains and strains (2 sources) Rupture of infraspinatus tendon; Translations: [Strain of other muscles, fascia and tendons at shoulder and upper arm level, right arm, initial encounter] 10-08-2023 Episodic Substance-related disorders (6 sources) Nicotine dependence; Translations: [Nicotine dependence, unspecified, uncomplicated] 01-21-2023 Chronic Superficial injury; contusion (20 sources) Contusion of right front wall of thorax, initial encounter; Translations: [Contusion of rib on right side] Onset: 10-06-2023 08-27-2023 Episodic Unclassified (4 sources) CONTACT W/AND [...] encounter; Translations: [Failed orthopedic implant, initial encounter T84.751T] Onset: 11-16-2020 Resolved: 11-30-2020 Episodic Other connective [...] Test Name Value Interpretation Reference Range Facility MR shoulder RT wo conon - MR shoulder RT wo con [facility] [place] [address] [place] [address] MRI Report Signed Patient: Keila Richardson MR#: [id number] 09 : 1970 Acct:[id number] Age/Sex: 53 / F ADM Date: 10/06/23 Loc: [facility] Room: Type: [facility] Attending Dr: Moncho Johnson MD Copies to: Moncho Johnson MD Ordering Provider: Moncho Johnson MD Date of Service: 10/06/23 MR/MR shoulder RT wo con: S40.011A - Contusion of right shoulder, initial encounter EXAMINATION: MRI OF THE RIGHT SHOULDER CLINICAL HISTORY: Right shoulder pain worse with abduction. COMPARISON: Right shoulder 09/08/2023. TECHNIQUE: Multiecho, multiplanar imaging was performed with use of an extremity coil. No contrast was administered. FINDINGS: Evaluation is suboptimal due to motion. Bones/Joints: Degenerative spurring is seen involving the AC and glenohumeral joints as well as along the humeral head. No significant bone marrow edema or acute fracture line noted. Inferior glenohumeral ligament appears unremarkable. Small joint effusion with fluid extending along the biceps tendon sheath. Labrum: Suboptimally visualized. Heterogeneous signal likely a combination of degeneration and tear. Biceps tendon: Visualized portions appear to be normal with subluxation medially within the bicipital groove. The tendon appears to reach the labrum. Supraspinatus: Tendinosis with several partial and full-thickness tears. There is loss of the subacromial space. The tears appear to be within the region of the musculotendinous junction. No complete tear is seen. Muscle appears atrophic suggesting chronic process. Infraspinatus: Near complete tear of the infraspinatus at the musculotendinous junction with several fibers still extending towards the tubercle. There is associated tendinosis and muscular atrophy suggesting a chronic process. Teres Minor: Normal Subscapularis: Tendinosis without definitive tear. There appears be some fraying of the retinacular fibers extending along the bicipital groove. MR/MR shoulder RT wo con IMPRESSION: SUBOPTIMAL STUDY. THERE APPEARS TO BE NEAR COMPLETE TEAR OF THE INFRASPINATUS AT THE MUSCULOTENDINOUS JUNCTION WITH SEVERAL FIBERS STILL EXTENDING TOWARDS THE TUBERCLE. THERE IS ASSOCIATED TENDINOSIS AND MUSCULAR ATROPHY SUGGESTING A CHRONIC PROCESS. SEVERAL PARTIAL AND FULL-THICKNESS TEARS OF THE SUPRASPINATUS MOSTLY AT THE MUSCULOTENDINOUS JUNCTION. THERE IS ASSOCIATED TENDINOSIS AND MUSCULAR ATROPHY SUGGESTING A CHRONIC PROCESS. DEGENERATIVE SPURRING OF THE RIGHT SHOULDER WITH SMALL JOINT EFFUSION. Impression dictated by: Marin Baires Jr., Abdi10/06/2023 4:14 PM Dictation Location: [place] [address] Transcribed By: [facility] 10/06/23 1614 Dictated By: Marin Baires Jr, DO 10/06/23 1602 Signed By: 10/06/23 1614 Normal [facility] XR shoulder RT min 2V*on XR shoulder RT min 2V* [facility] [address] [place] [address] XRay Report Signed Patient: Keila Richardson MR#: [id number] 09 : 1970 Acct:[id number] Age/Sex: 53 / F ADM Date: 09/08/23 Loc: [facility] Room: Type: [facility] Attending Dr: Moncho Johnson MD Copies to: [...] Felix Petit M.D.09/08/2023 3:45 PM Dictation Location: [place] [address] Transcribed By: [facility] 09/08/23 1545 Dictated By: Felix Petit DO 09/08/23 1543 Signed By: 09/08/23 1545 Normal [facility] Activated partial thrombopla stin time (aPTT) in platelet poor plasma by coagulation aOrdered By: Moncho Chao on 08-27-2023 aPTT Coag (PPP) [Time] 31.1 s 25.1-36.5 [facility] Comment on above: A hematocrit value g reater than 55% may lead to inaccurate results in coagulation testing. Patients having hematocrit values >55% require a special collection tube for coagulation studies. Please contact the laboratory at [phone] for redraw instructions. Alanine aminotransferase [En zymatic activity/volume] in Serum or PlasmaOrdered By: Moncho Chao on 08-27-2023 ALT [Catalytic activity/Vol] 44 U/L Normal 7-52 [facility] Comment on above: Performed By: #### P T, BNP, CMP, HS TROP, PTT, CBC #### [facility] [address] [place] [address] [place] Albumin [Mass/volume] in Ser um or Plasma by Bromocresol green (BCG) dye binding methoOrdered By: Moncho Chao on 08-27-2023 Albumin BCG dye [Mass/Vol] 4.1 g/dL 3.5-5.7 [facility] Alkaline phosphatase [Enzyma tic activity/volume] in Serum or PlasmaOrdered By: Moncho Chao on 08-27-2023 ALP [Catalytic activity/Vol] 79 U/L Normal 34-104 [facility] Comment on above: Performed By: #### P T, BNP, CMP, HS TROP, PTT, CBC #### [facility] [address] [id number] [place] Aspartate aminotransferase [ Enzymatic activity/volume] in Serum or PlasmaOrdered By: Moncho Chao on 08-27-2023 AST [Catalytic activity/Vol] 57 U/L High 13-39 [facility] Comment on above: Performed By: #### P T, BNP, CMP, HS TROP, PTT, CBC #### [address] Automated basophil %Ordered By: Moncho Chao on 08-27-2023 Basophils/100 WBC (Bld) 0.5 % Normal . [facility] Comment on above: Performed By: #### P T, BNP, CMP, HS TROP, PTT, CBC #### [address] Automated basophil countOrde red By: Moncho Chao on 08-27-2023 Basophils (Bld) [#/Vol] 0.0 10*3/uL Normal 0.0-0.2 [facility] Comment on above: Result Comment: PERF ORMED BY: [place] [address] PATHOLOGIST [facility] ESTELITA CAZARES M.D. Performed By: #### P T, BNP, CMP, HS TROP, PTT, CBC #### [address] Automated blood monocyte cou ntOrdered By: Moncho Chao on 08-27-2023 Monocytes (Bld) [#/Vol] 0.2 10*3/uL Normal 0.0-0.8 [facility] Comment on above: Performed By: #### P T, BNP, CMP, HS TROP, PTT, CBC #### [address] Automated eosinophil %Ordere d By: Moncho Chao on 08-27-2023 Eosinophils/100 WBC (Bld) 0.1 % Normal . [facility] Comment on above: Performed By: #### P T, BNP, CMP, HS TROP, PTT, CBC #### [address] Automated eosinophil countOr dered By: Moncho Chao on 08-27-2023 Eosinophils (Bld) [#/Vol] 0.0 10*3/uL Normal 0.0-0.45 [facility] Comment on above: Performed By: #### P T, BNP, CMP, HS TROP, PTT, CBC #### [address] Automated monocyte %Ordered By: Moncho Chao on 08-27-2023 Monocytes/100 WBC (Bld) 1.8 % Normal . [facility] Comment on above: Performed By: #### P T, BNP, CMP, HS TROP, PTT, CBC #### [address] Automated neutrophil %Ordere d By: Moncho Chao on 08-27-2023 Neutrophils/100 WBC (Bld) 86.1 % Normal . [facility] Comment on above: Performed By: #### P T, BNP, CMP, HS TROP, PTT, CBC #### [address] BNP ser/plasOrdered By: Constantino Chao on 08-27-2023 Natriuretic peptide B (Bld) [Mass/Vol] 19.0 pg/mL Normal 5-100 [facility] Comment on above: Result Comment: PERF ORMED BY: [place] [address] PATHOLOGIST [facility] ESTELITA CAZARES M.D. Performed By: #### P T, BNP, CMP, HS TROP, PTT, CBC #### [address] Bilirubin.total [Mass/volume ] in Serum or PlasmaOrdered By: Moncho Chao on 08-27-2023 Bilirubin [Mass/Vol] 0.6 mg/dL Normal 0.3-1.0 [facility] Comment on above: Performed By: #### P T, BNP, CMP, HS TROP, PTT, CBC #### [address] chest wo conon 08-27-2023 CT chest wo con [facility] [place] [address] [place] [address] CT Scan Report Signed Patient: Keila Richardson MR#: [id number] 09 : 1970 Acct:[id number] Age/Sex: 53 / F ADM Date: 08/26/23 Loc: ER Room: Type: [facility] ER Attending Dr: Copies to: Moncho Chao Jr, MD Ordering Provider: Moncho Chao Jr, MD Date of Service: 08/26/23 CT/CT cervical spine wo con: fall, neck pain ([id number]) CT/CT chest wo con: fall, R rib [...] Felix Petit M.D.08/27/2023 7:31 AM Dictation Location: [place] [address] Transcribed By: [facility] 08/27/23730 Dictated By: Felix Petit DO 08/27/23723 Signed By: 08/27/23730 Normal [facility] Calcium [Mass/volume] in Ser um or PlasmaOrdered By: Moncho Chao on 08-27-2023 Calcium [Mass/Vol] 9.6 mg/dL Normal 8.6-10.3 [facility] Comment on above: Performed By: #### P T, BNP, CMP, HS TROP, PTT, CBC #### [address] Carbon dioxide, total [Moles /volume] in Serum or PlasmaOrdered By: Moncho Chao on 08-27-2023 CO2 [Moles/Vol] 25.4 mmol/L Normal 21.0-31.0 [facility] Comment on above: Performed By: #### P T, BNP, CMP, HS TROP, PTT, CBC #### [address] Chloride [Moles/volume] in S main or PlasmaOrdered By: Moncho Chao on 08-27-2023 Chloride [Moles/Vol] 105 mmol/L Normal 98-107 [facility] Comment on above: Performed By: #### P T, BNP, CMP, HS TROP, PTT, CBC #### [address] Complete Blood Count Auto Di ffon 08-27-2023 Mean Corpuscular HGB Conc 33.9 g/dL Normal 32.0-35.0 [facility] Comment on above: Performed By: #### P T, BNP, CMP, HS TROP, PTT, CBC #### [address] Monocytes/100 WBC (Bld) 21.29 % High 0.00-20.00 [facility] Comment on above: Result Comment: For adults in ED, MDW > 20.0 may be associated with a higher risk of sepsis during the first 12 hrs of hospital admission Performed By: #### P T, BNP, CMP, HS TROP, PTT, CBC #### [address] NRBC% 0.0 /100{WBC} Normal 0-0.5 [facility] Comment on above: Performed By: #### P T, BNP, CMP, HS TROP, PTT, CBC #### [address] Comprehensive Metabolic Pane tripp 08-27-2023 Albumin [Mass/Vol] 4.1 g/dL Normal 3.5-5.7 [facility] Comment on above: Performed By: #### P T, BNP, CMP, HS TROP, PTT, CBC #### [address] Creatinine Clr Calc Pharmacy 126.85 Normal [facility] Comment on above: Result Comment: PERF ORMED BY: [place] [address] PATHOLOGIST [facility] ESTELITA CAZARES M.D. Performed By: #### P T, BNP, CMP, HS TROP, PTT, CBC #### [address] GFR/1.73 sq M.predicted MDRD (S/P/Bld) [Vol rate/Area] mL/min/{1.73_m2} Normal [facility] Comment on above: Performed By: #### P T, BNP, CMP, HS TROP, PTT, CBC #### [address] Creatinine [Mass/volume] in Serum or PlasmaOrdered By: Moncho Chao on 08-27-2023 Creatinine [Mass/Vol] 0.76 mg/dL Normal 0.60-1.20 [facility] Comment on above: Performed By: #### P T, BNP, CMP, HS TROP, PTT, CBC #### [address] Erythrocyte distribution wid th [Ratio] by Automated countOrdered By: Moncho Chao on 08-27-2023 Erythrocyte distribution width (RBC) [Ratio] 13.5 % Normal 11.9-15.3 [facility] Comment on above: Performed By: #### P T, BNP, CMP, HS TROP, PTT, CBC #### [address] Erythrocytes [#/volume] in B lood by Automated countOrdered By: Moncho Chao on 08-27-2023 RBC (Bld) [#/Vol] 4.75 10*6/uL Normal 3.60-5.00 [facility] Comment on above: Performed By: #### P T, BNP, CMP, HS TROP, PTT, CBC #### [facility] [address] Glucose [Mass/volume] in Ser um or PlasmaOrdered By: Moncho Chao on 08-27-2023 Glucose [Mass/Vol] 141 mg/dL High 70-100 [facility] [facility] [place] Comment on above: ADA recommended refe rence rangeRandom Glucose Reference Range is dependent on time and content of last meal. Glucose of more than 200 mg/dL in a nonstressed, ambulatory subject supports the diagnosis of Diabetes Mellitus. Result Comment: [place] om Glucose Reference Range is dependent on time and content of last meal. Glucose of more than 200 mg/dL in a nonstressed, ambulatory subject supports the diagnosis of Diabetes Mellitus. ADA recommended reference range Performed By: #### P T, BNP, CMP, HS TROP, PTT, CBC #### [address] Hematocrit [Volume Fraction] of Blood by Automated countOrdered By: Moncho Chao on 08-27-2023 Hematocrit (Bld) [Volume fraction] 42.8 % Normal 34.0-46.4 [facility] Comment on above: Performed By: #### P T, BNP, CMP, HS TROP, PTT, CBC #### [facility] [address] Hemoglobin [Mass/volume] in BloodOrdered By: Moncho Chao on 08-27-2023 Hemoglobin (Bld) [Mass/Vol] 14.5 g/dL Normal 11.8-15.4 [facility] Comment on above: Performed By: #### P T, BNP, CMP, HS TROP, PTT, CBC #### [facility] [address] [place] [id number] [place] INR in Platelet poor plasma by Coagulation assayOrdered By: Moncho Chao on 08-27-2023 INR Coag (PPP) [Relative time] 1.0 {INR} Normal [facility] Comment on above: INR Therapeutic Rang e [...] valves: 3 - 4.5 Performed By: #### P T, BNP, CMP, HS TROP, PTT, CBC #### [facility] [address] [place] [address] Leukocytes [#/volume] correc alden for nucleated erythrocytes in Blood by Automated counOrdered By: Moncho Chao on 08-27-2023 WBC corrected for nucl RBC Auto (Bld) [#/Vol] 9.0 10*3/uL 3.8-11.6 [facility] Leukocytes [#/volume] in Blo od by Automated countOrdered By: Moncho Chao on 08-27-2023 WBC (Bld) [#/Vol] 9.0 10*3/uL Normal 3.8-11.6 [facility] [place] Comment on above: Performed By: #### P T, BNP, CMP, HS TROP, PTT, CBC #### [facility] [address] [place] [address] Lymphocytes [#/volume] in Bl ood by Automated countOrdered By: Moncho Chao on 08-27-2023 Lymphocytes (Bld) [#/Vol] 1.0 10*3/uL Normal 1.00-4.8 [facility] Comment on above: Performed By: #### P T, BNP, CMP, HS TROP, PTT, CBC #### [facility] [address] [place] [address] Lymphocytes/100 leukocytes i n Blood by Automated countOrdered By: Moncho Chao on 08-27-2023 Lymphocytes/100 WBC (Bld) 11.5 % Normal . [facility] Comment on above: Performed By: #### P T, BNP, CMP, HS TROP, PTT, CBC #### [facility] [address] MCH [Entitic mass] by Automa alden countOrdered By: Moncho Chao on 08-27-2023 MCH (RBC) [Entitic mass] 30.6 pg Normal 24.7-34.3 [facility] Comment on above: Performed By: #### P T, BNP, CMP, HS TROP, PTT, CBC #### [facility] [address] [place] [address] MCHC Auto (RBC) [Mass/Vol]Or dered By: Moncho Chao on 08-27-2023 MCHC (RBC) [Mass/Vol] 33.9 g/dL 32.0-35.0 [facility] MCV [Entitic volume] by Auto mated countOrdered By: Moncho Chao on 08-27-2023 MCV (RBC) [Entitic vol] 90.2 fL Normal 80-100 [facility] Comment on above: Performed By: #### P T, BNP, CMP, HS TROP, PTT, CBC #### [facility] [address] [place] [address] Monocyte distribution width [Entitic volume] in Blood by AutomatedOrdered By: Moncho Chao on 08-27-2023 Monocyte distribution width Auto (Bld) [Entitic vol] 21.29 % High 0.00-20.00 [facility] Comment on above: For adults in ED, MD W > 20.0 may be associated with a higher risk of sepsis during the first 12 hrs of hospital admission Neutrophils [#/volume] in Bl ood by Automated countOrdered By: Moncho Chao on 08-27-2023 Neutrophils (Bld) [#/Vol] 7.7 10*3/uL Normal 1.8-7.7 [facility] Comment on above: Performed By: #### P T, BNP, CMP, HS TROP, PTT, CBC #### [address] No Panel InformationOrdered By: Moncho Chao on 08-27-2023 Estimated GFR (CKD-EPI) > 60.0 mL/Min [facility] Creatinine Clearance (Chem 126.85 [facility] Nucleated erythrocytes [Pres ence] in Blood by Automated countOrdered By: Moncho Chao on 08-27-2023 Nucleated RBC Auto Ql (Bld) 0.0 /100{WBC} 0-0.5 [facility] Partial Thromboplastin Timeo n 08-27-2023 aPTT Coag (Bld) [Time] 31.1 s Normal 25.1-36.5 [facility] Comment on above: Result Comment: A he matocrit value greater than 55% may lead to inaccurate results in coagulation testing. Patients having hematocrit values >55% require a special collection tube for coagulation studies. Please contact the laboratory at [phone] for redraw instructions. PERFORMED BY: [address] [place] [address] PATHOLOGIST [facility] ESTELITA CAZARES M.D. Performed By: #### P T, BNP, CMP, HS TROP, PTT, CBC #### [address] Platelet mean volume [Entiti c volume] in Blood by Automated countOrdered By: Moncho Chao on 08-27-2023 Platelet mean volume (Bld) [Entitic vol] 7.3 fL Normal 6.3-10.7 [facility] Comment on above: Performed By: #### P T, BNP, CMP, HS TROP, PTT, CBC #### [address] Platelets [#/volume] in Bloo d by Automated countOrdered By: Moncho Chao on 08-27-2023 Platelets (Bld) [#/Vol] 382 10*3/uL Normal 150-450 [facility] Comment on above: Performed By: #### P T, BNP, CMP, HS TROP, PTT, CBC #### [place] [address] [place] Potassium [Moles/volume] in Serum or PlasmaOrdered By: Moncho Chao on 08-27-2023 Potassium [Moles/Vol] 3.8 mmol/L Normal 3.5-5.1 [facility] Comment on above: Performed By: #### P T, BNP, CMP, HS TROP, PTT, CBC #### [facility] [address] Protein [Mass/volume] in Ser um or PlasmaOrdered By: Moncho Chao on 08-27-2023 Protein [Mass/Vol] 7.7 g/dL Normal 6.4-8.9 [facility] [place] Comment on above: Performed By: #### P T, BNP, CMP, HS TROP, PTT, CBC #### [address] Prothrombin time (PT)Ordered By: Moncho Chao on 08-27-2023 PT Coag (PPP) [Time] 11.6 s Normal 9.0-12.9 [facility] Comment on above: A hematocrit value g reater than 55% may lead to inaccurate results in coagulation testing. Patients having hematocrit values >55% require a special collection tube for coagulation studies. Please contact the laboratory at [phone] for redraw instructions. Result Comment: A he matocrit value greater than 55% may lead to inaccurate results in coagulation testing. Patients having hematocrit values >55% require a special collection tube for coagulation studies. Please contact the laboratory at [phone] for redraw instructions. Performed By: #### P T, BNP, CMP, HS TROP, PTT, CBC #### [facility] [address] Serum globulin measurement b y calculation (mass/volume)Ordered By: Moncho Chao on 08-27-2023 Globulin (S) [Mass/Vol] 3.6 g/dL Normal [facility] Comment on above: Performed By: #### P T, BNP, CMP, HS TROP, PTT, CBC #### [address] Serum or plasma albumin/glob ulin mass ratioOrdered By: Moncho Chao on 08-27-2023 Albumin/Globulin [Mass ratio] 1.1 {ratio} Normal [facility] Comment on above: Performed By: #### P T, BNP, CMP, HS TROP, PTT, CBC #### [address] Serum or plasma anion gap de terminationOrdered By: Moncho Chao on 08-27-2023 Anion gap [Moles/Vol] 11.4 mmol/L Normal 6.0-15.0 [facility] Comment on above: Performed By: #### P T, BNP, CMP, HS TROP, PTT, CBC #### [facility] [address] [place] [address] Sodium [Moles/volume] in Ser um or PlasmaOrdered By: Moncho Chao on 08-27-2023 Sodium [Moles/Vol] 138 mmol/L Normal 136-145 [facility] [place] Comment on above: Performed By: #### P T, BNP, CMP, HS TROP, PTT, CBC #### [facility] [address] [place] [address] Troponin I High Sensitivityo n 08-27-2023 Troponin I High Sensitivity 3.5 pg/mL Normal 0.0-15.0 [facility] Comment on above: Result Comment: PERF ORMED BY: [place] [address] PATHOLOGIST [facility] ESTELITA CAZARES M.D. Performed By: #### P T, BNP, CMP, HS TROP, PTT, CBC #### [facility] [address] [place] [address] Troponin I.cardiac [Mass/vol ume] in Serum or Plasma by Detection limit <= 0.01 ng/Ordered By: Moncho Chao on 08-27-2023 Troponin I.cardiac DL <= 0.01 ng/mL [Mass/Vol] 3.5 pg/mL 0.0-15.0 [facility] Urea nitrogen [Mass/volume] in Serum or PlasmaOrdered By: Moncho Chao on 08-27-2023 Urea nitrogen [Mass/Vol] 15 mg/dL Normal 7-25 [facility] Comment on above: Performed By: #### P T, BNP, CMP, HS TROP, PTT, CBC #### [facility] [address] [place], [place] [id number] [facility] XR femur RT 2V*on 08-27-2023 XR femur RT 2V* [facility] [address] [place] [id number] XRay Report Signed Patient: Keila Richardson MR#: [id number] 09 : 1970 Acct:[id number] Age/Sex: 53 / F ADM Date: 08/26/23 Loc: ER Room: Type: [facility] ER Attending Dr: Copies to: Moncho Chao Jr, MD Ordering Provider: Moncho Chao Jr, MD Date of Service: 08/26/23 XR/XR femur RT 2V*: Fall ([id number]) XR/XR humerus RT*: Fall ([id number]) XR/XR shoulder RT min 2V*: Fall ([id number]) XR/XR pelvis 1-2V: Fall 3 views right [...] Felix Petit M.D.08/27/2023 7:35 AM Dictation Location: [place] [address] Transcribed By: [facility] 08/27/2335 Dictated By: Felix Petit DO 08/27/23 0731 Signed By: 08/27/23 0735 Normal [facility] ECG 12 lead ECGon 08-26-2023 ECG 12 lead ECG [facility] [address] [place] [id number] Electrocardiograph Report Signed Patient: Keila Richardson MR#: [id number] 09 : 1970 Acct:[id number] Age/Sex: 53 / F ADM Date: 08/26/23 Loc: ER Room: Type: [facility] ER Attending Dr: Ordering Provider: Moncho Chao [...] was found Confirmed by CHET ESPARZA MD ([facility]) on 08/29/2023 1:27:04 PM Referred By: Electronically Signed By: CHET ESPARZA MD Transcribed By: MUS Signed By Chet Esparza MD 0 08/29/23 1327 Normal [facility] Follow-Upon 03-14-2022 Follow-Up [id number] Markcinthia chambers 1970 Provider Department Center 03/14/2022 LEO MARSHALL MP ORTHO MPORTHO No family history on file Level of Service:92632 ID OFFICE/OUTPATIENT ESTABLISHED LOW MDM 20-29 MIN (GC) Reason for Visit and Comments: Follow-up [412969] Normal [facility] Telemedicineon 01-14-2022 Telemedicine [id number] DylanSanjana chambers 1970 Provider Department Center 01/14/2022 John-MONET MULLINS [facility] RHEUM Carlos Heal No family history on file Level of Service:[id number] ID PHYS/QHP TELEPHONE EVALUATION 5-10 MIN Reason for Visit and Comments: Follow-up [750070] Normal [facility] Office Visiton 01-10-2022 Follow-up visit [id number] Sanjana Richardson 1970 F Date Provider Department Center 01/10/2022 CHARLY MENA MP ORTHO MPORTHO No family history on file Level of Service:62434 ID OFFICE/OUTPATIENT ESTABLISHED LOW MDM 20-29 MIN () Reason for Visit and Comments: Pain [136] - Patient has had increased pain in right leg where her femur was repaired since her Left hip replacement 6 weeks ago. Normal [facility] 37on 12-13-2021 37 Please call the [email or web address] with any emergent concerns at [phone] ([facility] location) [employer] messages may take up to 3 business [...] insoles (orthotics) in your shoes if a rn emergency/specialist/occ upational therapist has recommended them Don???t: -Do [...] spectrum disorders do not have symptoms. Another [facility] website to review is: [email or web address] [email or web address] e Normal [facility] Office Visiton 12-13-2021 Follow-up visit [id number] Sanjana Richardson 1970 F Date Provider Department Center 12/13/2021 John-MONET MULLINS [facility] RHEUM Carlos Heal No family history on file Level of Service:98932 ID OFFICE/OUTPATIENT NEW LOW [facility] 30-44 MINUTES Reason for Visit and Comments: New Patient [632] - Referral is in [place]. Patient request to be scheduled in December after recovery from her hip surgery in October. Normal [facility] SJOGRENS SYNDROME ANTIBODIES A AND Bon 12-13-2021 KIRSTIN TO SSA (RO) ANTIBODY Negative Normal Negative [facility] Comment on above: Performed By: #### L [id number] ####[facility] (BEAKER)[address] [place] [address] KIRSTIN TO SSB ([place]) ANTIBODY Negative Normal Negative [facility] Comment on above: Performed By: #### L [id number] ####[facility] (RAMIREZ)[address] [place] [address] Office Visiton 12-11-2021 Follow-up visit [id number] Sanjana Richardson 1970 F Date Provider Department Center 12/11/2021 433-LEO ORTEGA MP ORTHO MPORTHO No family history on file Level of Service:39745 ID POSTOP FOLLOW UP VISIT RELATED TO ORIGINAL PX Reason for Visit and Comments: Post-op [483] - 1st PO [facility] 36on 12-09-2021 36 Per Doctor Giovanny Dunham; patient was told to go to ER. [facility] CONSULTon 12-07-2021 CONSULT Reason For Consult hip [...] 10*3/uL Final So (more content not included)... [facility] 36on 12-06-2021 36 Patient called in an d stated during her home exercises she heard a pop and she is concerned that something pop out of place and it was in her bubba area. [facility] EDNURSon 12-06-2021 EDNURS 1 week post of total hip. C/o imcreased pain to hip radiating to groin. Normal [facility] EDPROVon 12-06-2021 EDPROV [facility] Andrew [facility] [id number] EMERGENCY DEPARTMENT ENCOUNTER CHIEF COMPLAINT No chief complaint on file. HISTORY OF PRESENT ILLNESS 51-year-old female with past medical history of obesity brought to the emergency department by her for left hip worsening pain. Patient had a total hip replacement done by Dr. Ortega in the [facility] Ortho clinic a week ago Thursday. She [...] this chart in the absence of a plate grainer apprentice. Procedures RADIOLOGY: Radiologist interpretat (more content not included)... [facility] Telephoneon 12-06-2021 Telephone [id number] Sanjana Richardson reyes 1970 F Date Provider Department Mcnary 12/06/2021 433LEO HAMMOND MP ORTHO MPORTHO No family history on file Reason for Visit and Comments: Hip Pain [318700] [facility] 36on 12-03-2021 36 Spoke with Mrs Cesar harmon to see how she was doing after her recent surgery with Dr Ortega. She stated she is doing well the pain is manageable with medications and ice. She is taking all the medications she was prescribed at discharge. She denies any redness, drainage, or major swelling. [facility] Telephoneon 12-03-2021 Telephone [id number] Sanjana Richardson 1970 Date [facility] Department Mcnary 12/03/2021 KWABENA CM MP ORTHO MPORTHO No family history on file [facility] 29on 11-29-2021 29 Encounter addended b y: Alek Neumann MD on: 12/17/2021 3:22 PM Actions taken: Clinical Note Signed [facility] DSon 11-29-2021 DS Admission Admitted 11/27/2021 for [...] HYDROcodone-acetaminophen 5-325 mg tablet Commonly known as: [place] Where to Get Your Medications You can [...] Department Center 12/27/2021 11:20 AM Monet Mullins [facility] RHEUM Carlos Heal 03/14/2022 1:00 PM Leo Ortega MD MP ORTHO MPORTHO Test Results Pending At (more content not included)... Normal [facility] 30on 11-28-2021 30 The patient is Moder [...] baseline comfort level Outcome: Not Progressing Normal [facility] 30 The patient is Moder ately Stable - Low risk of patient condition declining or worsening The patient's goals for the shift include comfort and rest The clinical goals for the shift include pain management Over the shift, the patient did not make progress toward the following goals. Barriers to progression include N/A. Recommendations to address these barriers include N/A. Normal [facility] BASIC METABOLIC PANELon 10-2 Anion gap [Moles/Vol] 8 mmol/L Normal 7-20 [facility] Comment on above: Performed By: #### L AB15 ####[facility] (BEAKER)[address] [place] [address] Calcium [Mass/Vol] 8.3 mg/dL Low 8.6-10.3 [facility] Comment on above: Performed By: #### L [id number] ####[facility] (BEAKER)[address] [place] [address] Chloride [Moles/Vol] 105 mmol/L Normal 98-[address] [facility] Comment on above: Performed By: #### L [id number] ####[facility] (BEAKER)[address] [place] [address] CO2 [Moles/Vol] 24 mmol/L Normal 21-31 [facility] Comment on above: Performed By: #### L [id number] ####[facility] (BEAKER)[address] [place] [address] Creatinine [Mass/Vol] 0.66 mg/dL Normal 0.60-1.20 [facility] Comment on above: Performed By: #### L [id number] ####[facility] (BEAKER)[address] [place] [address] GLOMERULAR FILTRATION RATE ML/MIN/1.73 SQ M.PREDICTED 103.3 mL/min/1.73m*2 Normal >60.0 [facility] Comment on above: Result Comment: The [facility]???s estimated glomerular filtration rate (eGFR) will no [...] of individuals. Performed By: #### L [id number] ####[facility] ([facility])[address] [place] [address] Glucose [Mass/Vol] 122 mg/dL High 70-100 [facility] Comment on above: Performed By: #### L [id number] ####[facility] ([facility])[address] [place] [address] Potassium [Moles/Vol] 4.4 mmol/L Normal 3.5-5.1 [facility] Comment on above: Performed By: #### L [id number] ####[facility] ([facility])[address] [place] [address] Sodium [Moles/Vol] 137 mmol/L Normal 136-145 [facility] Comment on above: Performed By: #### L [id number] ####[facility] [place] [address] Urea nitrogen [Mass/Vol] 19 mg/dL Normal 7-25 [facility] Comment on above: Performed By: #### L [id number] ####[facility] [place] [address] UREA NITROGEN/CREATININE (MASS RATIO) IN SER/PLAS 28.79 Normal [facility] Comment on above: Performed By: #### L [id number] ####[facility] ([facility])[address] [place] [address] CBCon 11-28-2021 Erythrocyte distribution width (RBC) [Ratio] 13.1 % Normal 11.5-15.0 [facility] Comment on above: Performed By: #### L [id number] ####[facility] [place], [place] [address] ERYTHROCYTE MEAN CORPUSCULAR HEMOGLOBIN CONCENTRATION (G/DL) BY AUTOMATED 32.5 g/dL Normal 32.0-35.0 [facility] Comment on above: Performed By: #### L [id number] ####[facility] [place] [address] Hematocrit (Bld) [Volume fraction] 36.0 % Normal 36.0-48.0 [facility] Comment on above: Performed By: #### L [id number] ####[facility] [place] [address] Hemoglobin (Bld) [Mass/Vol] 11.7 g/dL Low 12.0-15.0 [facility] Comment on above: Performed By: #### L [id number] ####[facility] (BEAKER)[address] [place] [address] MCH (RBC) [Entitic mass] 29.5 pg Normal 27.0-33.0 [facility] Comment on above: Performed By: #### L [id number] ####[facility] (BEAKER)[address] [place] [address] MCV (RBC) [Entitic vol] 90.9 fL Normal 82.0-98.0 [facility] Comment on above: Performed By: #### L [id number] ####[facility] (BEAKER)[address] [place] [address] PLATELETS (10*3/UL) IN BLOOD AUTOMATED COUNT 381 10*3/uL Normal 150-400 [facility] Comment on above: Performed By: #### L [id number] ####[facility] (BEAKER)[address] [place] [address] RBC (Bld) [#/Vol] 3.96 10*6/uL Normal 3.80-5.00 [facility] Comment on above: Performed By: #### L [id number] ####[facility] ([facility])[address] [place] [address] WBC (Bld) [#/Vol] 13.69 10*3/uL High 4.00-10.[address] [facility] Comment on above: Performed By: #### L [id number] ####[facility] ([facility])[address] [place] [address] CT CHEST ANGIOGRAM W AND/OR WO IV [...] hepatic steatosis. Electronically signed: Daniel Meza. Normal [facility] Comment on above: Order Comment: CTA W ITH contrast POCT GLUCOSE METER UNSOLICIT ED RESULTSon 11-28-2021 Glucose [Mass/Vol] 84 mg/dL Normal 70-105 [facility] Comment on above: Result Comment: rsha w2 Performed By: #### L [id number] ####[facility] ([facility])[address] [place] [address] APTTon 11-27-2021 ACTIVATED PARTIAL THROMBOPLASTIN TIME IN PPP BY COAGULATION ASSAY 35.0 Seconds Normal 25.0-35.0 [facility] Comment on above: Performed By: #### L [id number] ####[facility] [place] [address] BASIC METABOLIC PANELon 11-09 Anion gap [Moles/Vol] 9 mmol/L Normal 7-20 [facility] Comment on above: Performed By: #### L [id number] ####[facility] ([facility])[address] [place] [address] Calcium [Mass/Vol] 9.0 mg/dL Normal 8.6-10.3 [facility] Comment on above: Performed By: #### L [id number] ####[facility] [place] [address] Chloride [Moles/Vol] 102 mmol/L Normal 98-[address] [facility] Comment on above: Performed By: #### L [id number] ####[facility] [place] [address] CO2 [Moles/Vol] 27 mmol/L Normal 21-31 [facility] Comment on above: Performed By: #### L [id number] ####[facility] [place] [address] Creatinine [Mass/Vol] 0.77 mg/dL Normal 0.60-1.20 [facility] Comment on above: Performed By: #### L [id number] ####[facility] ([facility] [place] [address] GLOMERULAR FILTRATION RATE ML/MIN/1.73 SQ M.PREDICTED 90.3 mL/min/1.73m*2 Normal >60.0 [facility] Comment on above: Result Comment: The [facility] [facility]???s estimated glomerular filtration rate (eGFR) will no [...] of individuals. Performed By: #### L [id number] ####[facility] ([facility] [place] [address] Glucose [Mass/Vol] 159 mg/dL High 70-100 [facility] Comment on above: Performed By: #### L [id number] ####[facility] ([facility] [place] [address] Potassium [Moles/Vol] 4.6 mmol/L Normal 3.5-5.1 [facility] Comment on above: Performed By: #### L [id number] ####[facility] ([facility] [place] [address] Sodium [Moles/Vol] 138 mmol/L Normal 136-145 [facility] Comment on above: Performed By: #### L [id number] ####[facility] ([facility] [place] [address] Urea nitrogen [Mass/Vol] 21 mg/dL Normal 7-25 [facility] Comment on above: Performed By: #### L [id number] ####[facility] ([facility] [place] [address] UREA NITROGEN/CREATININE (MASS RATIO) IN SER/PLAS 27.27 Normal [facility] Comment on above: Performed By: #### L [id number] ####[facility] (BE[facility])[address] [place] [address] CBCon 11-27-2021 Erythrocyte distribution width (RBC) [Ratio] 13.2 % Normal 11.5-15.0 [facility] Comment on above: Performed By: #### L [id number] ####[facility] (BE[facility]ER)[address] [place] [address] ERYTHROCYTE MEAN CORPUSCULAR HEMOGLOBIN CONCENTRATION (G/DL) BY AUTOMATED 32.8 g/dL Normal 32.0-35.0 [facility] Comment on above: Performed By: #### L [id number] ####[facility] ([facility] [place] [address] Hematocrit (Bld) [Volume fraction] 41.5 % Normal 36.0-48.0 [facility] Comment on above: Performed By: #### L [id number] ####[facility] ([facility] [place] [address] Hemoglobin (Bld) [Mass/Vol] 13.6 g/dL Normal 12.0-15.0 [facility] Comment on above: Performed By: #### L [id number] ####[facility] ([facility] [place] [address] MCH (RBC) [Entitic mass] 29.6 pg Normal 27.0-33.0 [facility] Comment on above: Performed By: #### L [id number] ####[facility] ([facility] [place] [address] MCV (RBC) [Entitic vol] 90.4 fL Normal 82.0-98.0 [facility] Comment on above: Performed By: #### L [id number] ####[facility] ([facility] [place] [address] PLATELETS (10*3/UL) IN BLOOD AUTOMATED COUNT 386 10*3/uL Normal 150-400 [facility] Comment on above: Performed By: #### L [id number] ####[facility] (BEAKER)[address] [place] [address] RBC (Bld) [#/Vol] 4.59 10*6/uL Normal 3.80-5.00 [facility] Comment on above: Performed By: #### L [id number] ####[facility] (BEAKER)[address] [place] [address] WBC (Bld) [#/Vol] 14.15 10*3/uL High 4.00-10.[address] [facility] Comment on above: Performed By: #### L [id number] ####[facility] ([facility])[address] [place] [address] CONSULTon 11-27-2021 CONSULT ----- ----- Attestation signed [...] concerned about the acute hypoxia and asked [facility] consults team to evaluate the patient. She [...] mg by mouth at bedtime. 11/26/2021 HYDROcodone-acetaminophen (Liberty) 5-325 mg tablet Take 2 tablets by [...] No friction (more content not included)... Normal [facility] D-DIMER, QUANTITATIVEon 11-09 FIBRIN D-DIMER (UG/L FEU) IN PLATELET POOR PLASMA 2.69 mcg/mL FEU High 0.27-0.49 [facility] Comment on above: Order Comment: D-Dim er values of less than 0.50 ug/ml (FEU) are considered to be a negative predictor of thrombosis. However, the D-Dimer result should be used in conjunction with pretest probability and should not be used alone to diagnose a thrombotic event. Performed By: #### L [id number] ####[facility] ([facility])[address] [place] [address] HPon 11-27-2021 History Of Present Illness Keila [...] to when she previously had. Is taking Liberty for pain, no physical therapy, got injection [...] mg by mouth at bedtime. 11/26/2021 HYDROcodone-acetaminophen (Liberty) 5-325 mg tablet Take 2 tablets by mouth in the morning and at bedtime. 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 Fairas in April 2021, osteoporosis, morbid obesity, long-term [...] and me (more content not included)... Normal [facility] HP H&P reviewed. The esvin hyde was examined and there are no changes to the H&P. Normal [facility] MRSA/MSSA DNA NASALon 2021 MRSA DNA Negative Normal Negative, Invalid [facility] Comment on above: Performed By: #### L [id number] ####[facility] (BEAKER)[address] [place] [address] MSSA DNA Negative Normal Negative, Invalid [facility] Comment on above: Performed By: #### L [id number] ####[facility] (BEAKER)[address] [place] [address] OPNOTEon 11-27-2021 OPNOTE ARTHROPLASTY, HIP, T OTAL (L) Operative Note Date: 11/27/2021 Location: [facility] Name: Keila Richardson, : 1970, Diagnosis Pre-op Diagnosis * Osteoarthritis of left hip, unspecified osteoarthritis type [M16.12] Post-op Diagnosis * Osteoarthritis of left hip, unspecified osteoarthritis type [M16.12] * 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 Alek Neumann MD resident orthopedic surgery [...] FEMORAL HEAD Implanted 28 mm outer diameter MORMON ADM/MDM X 3 INSERT Implanted Alpha code E Staff: Nickel Operator: Alexus Agosto RN Relief Nickel Operator: Bonita Tomlinson RN Relief Scrub: Cristiane Solares CST Scrub Person: Caty Clark CST Hoop Flaring Machine Operator Helper: Milad Avelar CSA Indications: Keila Richardson is [...] for left primary total hip arthroplasty using [place] implants. Risk and benefits of the procedure [...] Procedure: The patient was taken to the [facility] orders placed in supine position. Following this [...] to go almost 8-9 cm deep through (more content not included)... Normal [facility] OPNOTE ----- ----- Attestation signed by Leo Ortega MD at 11/27/2021 3:35 PM I was present for the entire procedure. ----- Date: 11/27/2021 Location: [facility] OR Name: Keila Richardson : 1970, Diagnosis Pre-op Diagnosis * Osteoarthritis of left hip, unspecified osteoarthritis type [M16.12] Post-op Diagnosis * Osteoarthritis of left hip, unspecified osteoarthritis type [M16.12] Procedures ARTHROPLASTY, HIP, TOTAL 05754 - ID ARTHRP ACETBLR/PROX FEM PROSTC AGRFT/ALGRFT Surgeons * [...] Implanted BIOLOX DELTA CERAMIC FEMORAL HEAD Implanted MORMON ADM/MDM X 3 INSERT Implanted Staff: Nickel Operator: Alexus Agosto RN Relief Nickel Operator: Bonita Tomlinson RN Relief Scrub: Cristiane Solares CST Scrub Person: Caty Clark CST Hoop Flaring Machine Operator Helper: Milad Avelar CSA Indications: Keila Richardson is [...] entire procedure. Alek Neumann Ortho PGY3 Leo Newtoncat Normal [facility] POCT GLUCOSE METER UNSOLICIT ED RESULTSon 11-27-2021 Glucose [Mass/Vol] 96 mg/dL Normal 70-105 [facility] Comment on above: Result Comment: ltol les Performed By: #### L [id number] ####[facility] (BEAKER)[address] [place] [address] PROTIME-INRon 11-27-2021 INR IN PPP BY COAGULATION ASSAY 0.99 Normal 0.90-1.10 [facility] Comment on above: Result Comment: ACCC P [...] CHEST 1995;[id number]. Performed By: #### L [id number] ####[facility] (BEAKER)[address] [place] [address] PROTHROMBIN TIME (PT) IN PPP BY COAGULATION ASSAY 13.1 Seconds Normal 12.3-14.8 [facility] Comment on above: Performed By: #### L [id number] ####[facility] (BEAKER)[address] [place] [address] TYPE AND SCREENon 11-27-2021 AB SCREEN Negative Normal [facility] Comment on above: Performed By: #### L [id number] ####[facility], ABO group Nom (Bld) O Normal [facility] Comment on above: Performed By: #### L [id number] ####[facility], RH TYPE IN BLOOD Positive Normal [facility] Comment on above: Performed By: #### L [id number] ####[facility], 36on 11-26-2021 36 Test was faxed by reg paz on 11/25/2021, rewriter called patient to let her know. Normal [facility] Orders Onlyon 11-26-2021 Orders Only [id number] Sanjana Richardson 1970 F Date Provider Department Center 11/26/2021 [id number], HISTORICAL [facility] [place] [facility] No family history on file Normal [facility] Covid-19 PCR (CVDTB)on 11-09 SARS-CoV-2 (COVID-19) RNA RAKAN+probe Ql (Unsp spec) Not detected Normal NOT DETECTED [facility] Comment on above: Result Comment: This test is not yet approved or cleared by the [place] FDA. When there are no FDA-approved or cleared tests available, and other criteria are met, FDA can make tests available under an emergency access mechanism called an Emergency Use Authorization (EUA). The EUA for this test is supported by the [place] of Health and Human Service's (HHS's) declaration [...] consistent with SARS-CoV-2. Performed By: #### C VDTBH #### [facility] [id number] Laura Chavis [id number] 11-20-2021 [id number] NPO after MN Must have a wagon driver to take you home and someone to stay for 24 hours after surgery. No jewelry. Hold the meds we spoke about: MVI, NSAIDS, HERBAL SUPP. X 1 WEEK Take the meds we spoke about w/a sip of water DOS: VICODIN PRN Bring insurance card and ID. [facility] 29on 11-19-2021 29 Addended by: KELSEY DINERO on: 11/19/2021 03:02 PM Modules accepted: Orders, CrowSet Normal [facility] Orders Onlyon 11-19-2021 Orders Only [id number] Sanjana Richardson reyes 1970 F Date Provider Department Center 11/19/2021 3186-KELSEY DINERO ORTHO MPORTHO No family history on file [facility] Covid-19 PCR (CVDTB)on 10-11 SARS-CoV-2 (COVID-19) RNA RAKAN+probe Ql (Unsp spec) Not detected Normal NOT DETECTED [facility] Comment on above: Result Comment: This test is not yet approved or cleared by the [place] FDA. When there are no FDA-approved or cleared tests available, and other criteria are met, FDA can make tests available under an emergency access mechanism called an Emergency Use Authorization (EUA). The EUA for this test is supported by the [place] of Health and Human Service's (HHS's) declaration [...] consistent with SARS-CoV-2. Performed By: #### [facility] #### [facility] [address] [address] [address] Laura Chavis [id number] 11-01-2021 [id number] NPO after MN Must have a wagon driver to take you home and someone to stay for 24 hours after surgery. No jewelry. Hold the meds we spoke about: NSAIDS AND VITAMINS AND MINERALS Take the meds we spoke about w/a sip of water DOS: NORCO PRN Bring insurance card and ID. [facility] 36on 10-31-2021 36 I called and [...] stated she got her labs done at [facility], they are to fax over to us. RN faxed over covid lab order. Normal [facility] Orders Onlyon 10-31-2021 Orders Only [id number] Sanjana Richardson 1970 F Date Provider Department [place] 10/31/2021 LAURA BERMUDEZ ORTHO MPORTHO No family history on file Normal [facility] Telephoneon 10-31-2021 Telephone [id number] Sanjana Richardson 1970 F Date Provider Department [place] 10/31/2021 KWABENA CM ORTHO MPORTHO No family history on file Reason for Visit and Comments: Pre-op education [Other] Normal [facility] CBC AUTO DIFFon 10-29-2021 BASO # 0.0 103/ul Normal 0.0-0.1 [facility] Comment on above: Performed By: #### C BC #### [facility] [address] [place] [address] Dr. Laura Chavis Basophils/100 WBC (Bld) 0.3 % Normal 0.2-2.0 [facility] Comment on above: Performed By: #### C BC #### [facility] [address] [place] [address] Dr. Laura Chavis EO # 0.1 103/ul Normal 0.0-0.7 [facility] Comment on above: Performed By: #### C BC #### [facility] [address] [place] [address] Dr. Laura Chavis Eosinophils/100 WBC (Bld) 0.6 % Critically low 0.9-7.0 [facility] Comment on above: Performed By: #### C BC #### [facility] [address] [place] [address] Dr. Laura Chavis Erythrocyte distribution width (RBC) [Ratio] 14.3 % Normal 11.0-15.0 [facility] Comment on above: Performed By: #### C BC #### [facility] [address] [place] [address] Dr. Laura Chavis Hematocrit (Bld) [Volume fraction] 41.4 % Normal 36.0-48.0 [facility] Comment on above: Performed By: #### C BC #### [facility] [address] [place] [address] Dr. Laura Chavis Hemoglobin (Bld) [Mass/Vol] 13.0 g/dL Normal 12.0-16.0 [facility] Comment on above: Performed By: #### C BC #### [facility] [address] [place] [address] Dr. Laura Chavis IG # 0.07 10e3/ul Critically high 0.00-0.03 [facility] Comment on above: Performed By: #### C BC #### [facility] [address] [place] [address] Dr. Laura Chavis IG % 0.6 % Critically high 0.0-0.5 [facility] Comment on above: Performed By: #### C BC #### [facility] [address] [place] [address] Dr. Laura Chavis LYMPH # 4.4 103/ul Critically high 1.2-3.8 [facility] Comment on above: Performed By: #### C BC #### [facility] [address] [place] [address] Dr. Laura Chavis Lymphocytes/100 WBC (Bld) 39.4 % Normal 20.5-60.0 [facility] Comment on above: Performed By: #### C BC #### [facility] [address] [place] [address] Dr. Laura Chavis MANUAL DIFF REQ NO Normal [facility] Comment on above: Performed By: #### C BC #### [facility] [address] [address] [address] Laura Chavis MCH (RBC) [Entitic mass] 28.7 pg Normal 26.7-34.0 [facility] Comment on above: Performed By: #### C BC #### [facility] [address] [place] [address] Dr. Laura Chavis MCHC (RBC) [Mass/Vol] 31.4 g/dL Normal 29.9-35.2 [facility] Comment on above: Performed By: #### C BC #### [facility] [address] [place] [address] Dr. Laura Chavis MCV (RBC) [Entitic vol] 91.4 fL Normal 81.0-99.0 [facility] Comment on above: Performed By: #### C BC #### [facility] [address] [place] [address] Dr. Laura Chavis MONO # 0.8 103/ul Normal 0.3-0.8 [facility] Comment on above: Performed By: #### C BC #### [facility] [address] [place] [address] Dr. Laura Chavis Monocytes/100 WBC (Bld) 6.9 % Normal 1.7-12.0 [facility] Comment on above: Performed By: #### C BC #### [facility] [address] [place] [address] Dr. Laura Chavis NEUT # 5.8 103/ul Normal 1.4-6.5 [facility] Comment on above: Performed By: #### C BC #### [facility] [address] [place] [address] Dr. Laura Chavis Neutrophils/100 WBC (Bld) 52.2 % Normal 43.0-75.0 [facility] Comment on above: Performed By: #### C BC #### [facility] [address] [place] [address] Dr. Laura Chavis Platelet mean volume (Bld) [Entitic vol] 8.8 fL Critically low 9.5-13.5 [facility] Comment on above: Performed By: #### C BC #### [facility] [address] [place] [address] Dr. Laura Chavis PLT 365 103/ul Normal 150-450 [facility] Comment on above: Performed By: #### C BC #### [facility] [address] [place] [address] Dr. Laura Chavis RBC 4.53 106/ul Normal 4.20-5.40 [facility] Comment on above: Performed By: #### C BC #### [facility] [address] [place] [address] Dr. Laura Chavis WBC 11.2 103/ul Critically high 4.0-11.0 [facility] Comment on above: Performed By: #### C BC #### [facility] [address] [place] [address] Dr. Laura Chavis MRSA NARES #1on 10-29-2021 MRSA NARES #1 Culture Observations : NO GROWTH OF MRSA AT 48 HOURS. Normal [facility] Comment on above: Performed By: #### M RSAN1 #### [facility] [address] [place] [address] Dr. Laura Chavis PROF CHEM 8 (BAS METB)on Anion gap [Moles/Vol] 8.3 mmol/L Normal [facility] Comment on above: Performed By: #### B MP #### [facility] [address] [place] [address] Dr. Laura Chavis Calcium [Mass/Vol] 9.0 mg/dL Normal 8.5-10.1 [facility] Comment on above: Performed By: #### B MP #### [facility] [address] [place] [address] Dr. Laura Chavis Chloride [Moles/Vol] 105 mmol/L Normal 98-107 [facility] Comment on above: Performed By: #### B MP #### [facility] [address] [place] [address] Dr. Laura Chavis CO2 [Moles/Vol] 30.4 mmol/L Normal 21.0-32.0 [facility] Comment on above: Performed By: #### B MP #### [facility] [address] [address] [address] Laura Chavis Creatinine [Mass/Vol] 0.92 mg/dL Normal 0.55-1.02 [facility] Comment on above: Performed By: #### B MP #### [facility] [address] [address] [address] Laura Chavis EGFR-AF MALDIVIAN >60 Normal >=60 [facility] Comment on above: Performed By: #### B MP #### [facility] [address] [address] [address] Laura Chavis EGFR-NON AF MALDIVIAN >60 Normal >=60 [facility] Comment on above: Performed By: #### B MP #### [facility] [address] [address] [address] Laura Chavis Glucose [Mass/Vol] 87 mg/dL Normal 74-106 [facility] Comment on above: Performed By: #### B MP #### [facility] [address] [address] [address] Laura Chavis Potassium [Moles/Vol] 3.7 mmol/L Normal 3.5-5.1 [facility] Comment on above: Performed By: #### B MP #### [facility] [address] [address] [address] Laura Chavis Sodium [Moles/Vol] 140 mmol/L Normal 136-145 [facility] Comment on above: Performed By: #### B MP #### [facility] [address] [address] [address] Laura Chavis Urea nitrogen [Mass/Vol] 19.0 mg/dL Critically high 7.0-18.0 [facility] Comment on above: Performed By: #### B MP #### [facility] [address] [address] [address] Laura Chavis Urea nitrogen/Creatinine [Mass ratio] 20.7 mg/mg Normal [facility] Comment on above: Performed By: #### B MP #### [facility] [address] [address] [address] Laura Chavis PROTIMEon 10-29-2021 INR Coag (PPP) [Relative time] 0.95 {INR} Normal [facility] Comment on above: Performed By: #### C VDTBH #### [facility] [address] [place] [address] Dr. Laura Chavis INR GUIDELINES SEE BELOW Normal [facility] Comment on above: Result Comment: AMOR RED INR: 2.0 - 3.0 CONDITIONS NOT LISTED BELOW 2.5 - 3.5 FOR PROSTHETIC HEART VALVE REPLACEMENT 2.5 - 3.5 RECURRENT THROMBOSIS Performed By: #### C VDTBH #### [facility] [address] [place] [address] Dr. Laura Chavis PT Coag (PPP) [Time] 10.3 s Normal 9.0-11.6 [facility] Comment on above: Performed By: #### C VDTBH #### [facility] [address] [place] [address] Dr. Laura Chavis PTTon 10-29-2021 aPTT Coag (Bld) [Time] 27.5 s Normal 22.3-36.2 [facility] Comment on above: Performed By: #### P T, PTT #### [facility] [address] [place] [address] Dr. Laura Chavis FEMUR RIGHT 2 Son 10-19-19 22 FEMUR RIGHT 2 S [facility] Department of Radiology [address] [place] [id number] Patient Name: KEILA RICHARDSON : 1970 Sex: F Age: Race: White Pt. Location: Patient Status: O Ordered Date: 10/18/2021 12:35:00 PM Completed Date: 10/18/2021 12:49 PM Requesting Provider: CHARLY FARIAS Attending Provider: CHARLY FARIAS Report Copy To: Signs & Symptoms: S72.91XA Unsp fracture of right femur, init for clos fx I10 History: Sheila Comments: Evaluate Exam: FEMUR RIGHT 2 VWS [...] ORIF Electronically signed: Moncho Beyer. Transcribed by: [email or web address], User Resident: Electronically Signed by: MONCHO BEYER @ 10/18/2021 02:00 PM Normal [facility] Comment on above: Order Comment: Evalu ate HIP LEFT 1 OR 2 VWS WITH PEL VISon 09-27-2021 HIP LEFT 1 OR 2 VWS WITH PELVIS [facility] Department of Radiology [address] [place] [phone] Patient Name: KEILA RICHARDSON : 1970 [...] hip. Electronically signed: Daniel Meza. Transcribed by: [email or web address], User Resident: DANIEL MEZA Electronically Signed by: DANIEL MEZA @ 09/29/2021 02:18 PM I personally read this/these film(s) with this resident Normal [facility] Comment on above: Order Comment: Evalu ate JOINT PAIN INJECTIONon 08-15 JOINT PAIN INJECTION [facility] Department of Radiology [address] [place] [phone] Patient Name: KEILA RICHARDSON : 1970 Sex: F Age: Race: White Pt. Location: 84 Patient Status: O Ordered Date: 08/07/2021 11:55:00 AM Completed Date: 08/15/2021 09:17 AM Requesting Provider: CHARLY FARIAS Attending Provider: CHARLY FARIAS Report Copy To: ANTONIO IMELDADEON Signs & Symptoms: M25.552 Pain in left hip I10 History: Sheila Comments: Please inject 4cc of lidocaine 1% [...] report. Electronically signed: Magy Paz. Transcribed by: [email or web address], User Resident: AIDA OBANDO Electronically Signed by: MAGY PAZ @ 08/15/2021 01:28 PM I personally read this/these film(s) with this resident Normal [facility] Comment on above: Order Comment: Pleas e inject 4cc of lidocaine 1% and 2cc of kenalog 10mg in the left hip , Body Part: Hip , Side: LEFT FEMUR RIGHT 2 [facility] 07-13-19 22 FEMUR RIGHT 2 [facility] Department of Radiology [address] [place] [phone] Patient Name: KEILA RICHARDSON : 1970 Sex: F Age: Race: White Pt. Location: Patient Status: D Ordered Date: 07/12/2021 1:00:00 PM Completed Date: 07/12/2021 01:09 PM Requesting Provider: CHARLY FARIAS Attending Provider: CHARLY FARIAS Report Copy To: MARIBELL ALVAREZ Signs & Symptoms: S72.91XA Unsp fracture of right femur, init for clos fx I10 History: [place]ila Comments: , , , Ordering Provider - CHARLY FARIAS , Exam: FEMUR RIGHT 2 VWS FEMUR RIGHT 2 VWS 07/12/2021 1:09 PM [...] Electronically signed: Jose Juan Sandoval. Transcribed by: [email or web address], User Resident: Electronically Signed by: JOSE JUAN SANDOVAL @ 07/13/2021 10:29 AM Normal [facility] Comment on above: Order Comment: Evalu ate FEMUR RIGHT 2 Son 05-23-19 22 FEMUR RIGHT 2 S [facility] Department of Radiology [address] [place] [phone] Patient Name: KEILA RICHARDSON : 1970 Sex: F Age: Race: White Pt. Location: 84 Patient Status: O Ordered Date: 05/22/2021 10:45:00 [...] report. Electronically signed: Magy Paz. Transcribed by: [email or web address], User Resident: EDMAR BROWN Electronically Signed by: MAGY APZ @ 05/22/2021 03:10 PM I personally read this/these film(s) with this resident Normal [facility] Comment on above: Order Comment: Evalu ate FEMUR RIGHT 2 Son 04-25-19 22 FEMUR RIGHT 2 S [facility] Department of Radiology [address] [place] [phone] Patient Name: KEILA RICHARDSON : 1970 Sex: F Age: Race: White Pt. Location: 84 Patient Status: O Ordered Date: 04/24/2021 11:20:00 AM Completed Date: 04/24/2021 11:23 AM Requesting Provider: CHARLY FARIAS Attending Provider: CHARLY FARIAS Report Copy To: MARIBELL ALVAREZ Signs & Symptoms: S72.91XA Unsp fracture of right femur, init for clos fx I10 History: [place] Comments: Exam: FEMUR RIGHT 2 VWS FEMUR [...] noted. Electronically signed: German Gamble. Transcribed by: [email or web address], User Resident: Electronically Signed by: GERMAN GAMBLE @ 04/24/2021 12:18 PM Normal [facility] HIP LEFT 1 OR 2 VWS WITH PEL VISon 04-14-2021 HIP LEFT 1 OR 2 VWS WITH PELVIS [facility] Department of Radiology [address] [place] [phone] Patient Name: KEILA RICHARDSON : 1970 Sex: F Age: Race: White Pt. Location: [id number] Patient Status: I Ordered Date: 04/14/2021 7:55:00 [...] limitations. Electronically signed: ALEX PRATT. Transcribed by: [email or web address], User Resident: Electronically Signed by: ALEX PRATT @ 04/14/2021 11:40 AM Normal [facility] Comment on above: Order Comment: Evalu ate BASIC METABOLIC PANELon 03-0 Calcium [Mass/Vol] 8.3 mg/dL Low 8.6-10.3 [facility] Comment on above: Order Comment: No: D o not add to previous draw Performed By: #### 0 0071 #### [facility] [address] [place] [address], [place] Chloride [Moles/Vol] 101 mmol/L Normal 98-107 [facility] Comment on above: Order Comment: No: D o not add to previous draw Performed By: #### 0 0071 #### [facility] [address] [place] [address], [place] CO2 [Moles/Vol] 27 mmol/L Normal 21-31 [facility] Comment on above: Order Comment: No: D o not add to previous draw Performed By: #### 0 0071 #### [facility] [address] [place] [address], [place] Creatinine [Mass/Vol] 0.70 mg/dL Normal 0.60-1.20 [facility] Comment on above: Order Comment: No: D o not add to previous draw Performed By: #### 0 0071 #### [facility] [address] [place] [address], [place] GFR/1.73 sq M.predicted among blacks MDRD (S/P/Bld) [Vol rate/Area] mL/min/{1.73_m2} Normal >60 [facility] Comment on above: Order Comment: No: D o not add to previous draw Performed By: #### 0 0071 #### [facility] [address] [place] [address], [place] GFR/1.73 sq M.predicted among non-blacks MDRD (S/P/Bld) [Vol rate/Area] mL/min/{1.73_m2} Normal >60 [facility] Comment on above: Order Comment: No: D o not add to previous draw Performed By: #### 0 0071 #### [facility] [address] [place] [address], [facility] Glucose [Mass/Vol] 116 mg/dL High 70-100 [facility] Comment on above: Order Comment: No: D o not add to previous draw Performed By: #### 0 0071 #### [facility] [address] [place] [address], [place] Potassium [Moles/Vol] 4.1 mmol/L Normal 3.5-5.1 [facility] Comment on above: Order Comment: No: D o not add to previous draw Performed By: #### 0 0071 #### [facility] [address] [place] [address], [place] Sodium [Moles/Vol] 136 mmol/L Normal 136-145 [facility] Comment on above: Order Comment: No: D o not add to previous draw Performed By: #### 0 0071 #### [facility] [address] [place] [address], [facility] Urea nitrogen [Mass/Vol] 16 mg/dL Normal 7-25 [facility] Comment on above: Order Comment: No: D o not add to previous draw Performed By: #### 0 0071 #### [facility] [address] [place] [address], [facility] CBC COMPLETE BLOOD COUNTon 0 - Erythrocyte distribution width (RBC) [Ratio] 13.1 % Normal 11.5-15.0 [facility] Comment on above: Order Comment: Evalu ate Performed By: #### 5 0608 ####[facility].[place] [id number], [facility] Hematocrit (Bld) [Volume fraction] 33.2 % Low 36.0-45.0 [facility] Comment on above: Order Comment: Evalu ate Performed By: #### 5 0608 ####[facility] [address] Hemoglobin (Bld) [Mass/Vol] 11.6 g/dL Low 12.0-15.0 [facility] Comment on above: Order Comment: Evalu ate Performed By: #### 5 0608 ####[facility] [address] MCH (RBC) [Entitic mass] 31.5 pg Normal 27.0-33.0 [facility] Comment on above: Order Comment: Evalu ate Performed By: #### 5 0608 ####[facility] [address] MCHC (RBC) [Mass/Vol] 34.9 g/dL Normal 32.0-35.0 [facility] Comment on above: Order Comment: Evalu ate Performed By: #### 5 0608 ####[facility] [address] MCV (RBC) [Entitic vol] 90.2 fL Normal 82.0-98.0 [facility] Comment on above: Order Comment: Evalu ate Performed By: #### 5 0608 ####[facility] [address] Nucleated RBC/100 WBC (Bld) [Ratio] 0 % Normal 0-0 [facility] Comment on above: Order Comment: Evalu ate Performed By: #### 5 0608 ####[facility] [address] PLAT CNT 352 10*3/uL Normal 150-400 [facility] Comment on above: Order Comment: Evalu ate Performed By: #### 5 0608 ####[facility] [place] [address] RBC (Bld) [#/Vol] 3.68 10*6/uL Low 3.80-5.00 [facility] Comment on above: Order Comment: Evalu ate Performed By: #### 5 0608 ####[facility] WBC (Bld) [#/Vol] 11.61 10*3/uL High 4.00-10.60 [facility] Comment on above: Order Comment: Evalu ate Performed By: #### 5 0608 ####[facility] Operative Reporton Operative Report MR#: [id number] I [facility] Pt. Name: Keila Richardson Room #: [id number] Discharge Date: Birthdate: 1970 OPERATIVE REPORT DATE OF SURGERY: 04/10/2021 SURGEON: Charly Fraias M.D. 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 PROCEDURE PERFORMED: 1. 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-sided iliac crest bone graft harvest as well as revision fixation [id number] 2. Hardware removal right femur ANESTHESIA: General. [...] place 2 distal interlocking screws using perfect seminole technique in new screw holes both of [...] cortical (more content not included)... Normal [facility] PORTABLE TIBIA FIBULA LEFTon 04-11-2021 PORTABLE TIBIA FIBULA LEFT [facility] Department of Radiology [address] [place] [phone] Patient Name: KEILA RICHARDSON : 1970 Sex: F Age: Race: White Pt. Location: [id number] Patient Status: I Ordered Date: 04/11/2021 7:45:00 [...] report. Electronically signed: Gordon Dumont. Transcribed by: [email or web address], User Resident: KARLA REECE Electronically Signed by: GORDON DUMONT @ 04/12/2021 02:58 PM I personally read this/these film(s) with this resident Normal [facility] Comment on above: Order Comment: Evalu ate *ANAEROBIC CULTUREon 022 *ANAEROBIC CULTURE Clinical Report: (D) Specimen/Source: TISSUE/INTRAOP SPEC Collected: 04/10/2021 13:35 Status: Final Last Updated: 04/15/2021 08:17 (1) 1. Right femur non union site CULT RES (Final) No Anaerobes Isolated 5 Days Normal [facility] Comment on above: Order Comment: Evalu ate Performed By: #### 3 0312 ####[facility] [address] *TISSUE CULTUREon 04-10-2021 *TISSUE CULTURE Clinical Report: (D) Specimen/Source: TISSUE/INTRAOP SPEC Collected: 04/10/2021 13:35 Status: Final Last Updated: 04/15/2021 08:00 (1) 1. Right femur non union site GRAM (Final) No Polys Seen No Bacteria Seen CULT RES (Final) No Growth Day 5 Normal [facility] Comment on above: Order Comment: 1. Ri ght femur non union site Performed By: #### 3 0338 #### [facility] [address] BASIC METABOLIC PANELon Calcium [Mass/Vol] 8.6 mg/dL Normal 8.6-10.3 [facility] Comment on above: Order Comment: Evalu ate Performed By: #### 0 0071 ####[facility] [place] [address], [place] Chloride [Moles/Vol] 103 mmol/L Normal 98-107 [facility] Comment on above: Order Comment: Evalu ate Performed By: #### 0 0071 ####[facility] [place] [address], [place] CO2 [Moles/Vol] 25 mmol/L Normal 21-31 [facility] Comment on above: Order Comment: Evalu ate Performed By: #### 0 0071 ####[facility] [place] [address], [place] Creatinine [Mass/Vol] 0.68 mg/dL Normal 0.60-1.20 [facility] Comment on above: Order Comment: Evalu ate Performed By: #### 0 0071 ####[facility] [place] [address], [place] GFR/1.73 sq M.predicted among blacks MDRD (S/P/Bld) [Vol rate/Area] mL/min/{1.73_m2} Normal >60 [facility] Comment on above: Order Comment: Evalu ate Performed By: #### 0 0071 ####[facility] [place] [address], [place] GFR/1.73 sq M.predicted among non-blacks MDRD (S/P/Bld) [Vol rate/Area] mL/min/{1.73_m2} Normal >60 [facility] Comment on above: Order Comment: Evalu ate Performed By: #### 0 0071 ####[facility] [place] [address], [place] Glucose [Mass/Vol] 154 mg/dL High 70-100 [facility] Comment on above: Order Comment: Evalu ate Performed By: #### 0 0071 ####[facility] [address] Potassium [Moles/Vol] 4.0 mmol/L Normal 3.5-5.1 [facility] Comment on above: Order Comment: Evalu ate Performed By: #### 0 0071 ####[facility] [place] [address] Sodium [Moles/Vol] 138 mmol/L Normal 136-145 [facility] Comment on above: Order Comment: Evalu ate Performed By: #### 0 0071 ####[place] [address] [address] Urea nitrogen [Mass/Vol] 15 mg/dL Normal 7-25 [facility] Comment on above: Order Comment: Evalu ate Performed By: #### 0 0071 ####[address] FEMUR RIGHT 2 [facility] 04-11-19 22 FEMUR RIGHT 2 S [facility] Department of Radiology [address] [place] [phone] Patient Name: KEILA RICHARDSON : 1970 Sex: F Age: Race: White Pt. Location: OUTP Patient Status: I Ordered Date: 04/10/2021 12:30:00 PM Completed Date: 04/10/2021 07:04 PM Requesting Provider: CHARLY FARIAS Attending Provider: CHARLY FARIAS Report Copy To: Signs & Symptoms: RT DISTAL FEMUR REVISION ORIF History: Comments: T DISTAL FEMUR REVISION ORIF Exam: FEMUR RIGHT 2 [facility] FEMUR RIGHT 2 S 04/10/2021 7:04 PM CLINICAL INDICATIONS: RT DISTAL [...] Electronically signed: Luis Miguel Sheikh. Transcribed by: [email or web address], User Resident: Electronically Signed by: LUIS MIGUEL SHEIKH @ 04/10/2021 08:10 PM Normal [facility] Comment on above: Order Comment: T DIS GUIDO FEMUR REVISION ORIF POC GLUCOSE LABon 04-10-2021 Glucose [Mass/Vol] 92 mg/dL Normal 70-100 [facility] Comment on above: Performed By: #### 8 5499 #### [address] PORTABLE FEMUR RIGHT 2 [facility] 04-10-2021 PORTABLE FEMUR RIGHT 2 [facility] Department of Radiology [address] [place] [phone] Patient Name: KEILA RICHARDSON : 1970 [...] Electronically signed: Luis Miguel Sheikh. Transcribed by: [email or web address], User Resident: Electronically Signed by: LUIS MIGUEL SHEIKH @ 04/10/2021 08:04 PM Normal [facility] Comment on above: Order Comment: Evalu ate TYPE AND SCREENon 04-10-2021 ABO INTERPRETATION O Normal [facility] Comment on above: Performed By: #### 6 2586 ####[facility] [address], [facility] RH INTERPRETATION Positive Normal [facility] Comment on above: Performed By: #### 6 0996 ####[facility] [address], [facility] C-Reactive Proteinon 022 CRP IV 1.3 mg/dl Normal <5.0 [facility] Comment on above: Performed By: #### C BCAD, LIPD, CMP, VITD, CRP, ESR #### [facility] [address] [place], [place] [id number] Complete Blood Count with Au to Diffon 03-26-2021 Basophils (Bld) [#/Vol] 0.02 10*3/uL Normal 0.00-0.20 [facility] Comment on above: Performed By: #### C BCAD, LIPD, CMP, VITD, CRP, ESR #### [facility] [address] [place], [place] [id number] Basophils/100 WBC (Bld) 0.3 % Normal [facility] Comment on above: Performed By: #### C BCAD, LIPD, CMP, VITD, CRP, ESR #### [facility] [address] [place], [place] [id number] Eosinophils (Bld) [#/Vol] 0.26 10*3/uL Normal 0.02-0.50 [facility] Comment on above: Performed By: #### C BCAD, LIPD, CMP, VITD, CRP, ESR #### [facility] [address] [place], [place] [id number] Eosinophils/100 WBC (Bld) 4.0 % Normal [facility] Comment on above: Performed By: #### C BCAD, LIPD, CMP, VITD, CRP, ESR #### [facility] [address] [place], [place] [id number] Erythrocyte distribution width (RBC) [Ratio] 13.2 % Normal 11.0-15.0 [facility] Comment on above: Performed By: #### C BCAD, LIPD, CMP, VITD, CRP, ESR #### [facility] [address] [place], [place] [id number] Hematocrit (Bld) [Volume fraction] 40.1 % Normal 35.0-47.0 [facility] Comment on above: Performed By: #### C BCAD, LIPD, CMP, VITD, CRP, ESR #### [facility] [address] [place], [place] [id number] Hemoglobin (Bld) [Mass/Vol] 13.0 g/dL Normal 11.6-15.5 [facility] Comment on above: Performed By: #### C BCAD, LIPD, CMP, VITD, CRP, ESR #### [facility] [address] [place], [place] [id number] Lymphocytes (Bld) [#/Vol] 2.6 10*3/uL Normal 0.9-3.9 [facility] Comment on above: Performed By: #### C BCAD, LIPD, CMP, VITD, CRP, ESR #### [facility] [address] [place], [place] [id number] Lymphocytes/100 WBC (Bld) 39.4 % Normal [facility] Comment on above: Performed By: #### C BCAD, LIPD, CMP, VITD, CRP, ESR #### [facility] [address] [place], [place] [id number] MCH (RBC) [Entitic mass] 29.9 pg Normal 27.0-33.0 [facility] Comment on above: Performed By: #### C BCAD, LIPD, CMP, VITD, CRP, ESR #### [facility] [address] [place], [place] [id number] MCHC (RBC) [Mass/Vol] 32.4 g/dL Normal 32.0-36.0 [facility] Comment on above: Performed By: #### C BCAD, LIPD, CMP, VITD, CRP, ESR #### [facility] [address] [place], [place] [id number] MCV (RBC) [Entitic vol] 92 fL Normal 80-100 [facility] Comment on above: Performed By: #### C BCAD, LIPD, CMP, VITD, CRP, ESR #### [facility] [address] [place], [place] [id number] Monocytes (Bld) [#/Vol] 0.5 10*3/uL Normal 0.2-0.9 [place] [facility] Comment on above: Performed By: #### C BCAD, LIPD, CMP, VITD, CRP, ESR #### [facility] [address] [place], [place] [id number] Monocytes/100 WBC (Bld) 7.7 % Normal [facility] Comment on above: Performed By: #### C BCAD, LIPD, CMP, VITD, CRP, ESR #### [facility] [address] [place], [place] [id number] Neutrophils (Bld) [#/Vol] 3.1 10*3/uL Normal 1.5-7.8 [facility] Comment on above: Performed By: #### C BCAD, LIPD, CMP, VITD, CRP, ESR #### [facility] [address] [place], [place] [id number] Neutrophils/100 WBC (Bld) 48.3 % Normal [facility] Comment on above: Performed By: #### C BCAD, LIPD, CMP, VITD, CRP, ESR #### [facility] [address] [place], [place] [id number] Platelet mean volume (Bld) [Entitic vol] 9.30 fL Normal 7.50-12.[address] [facility] Comment on above: Performed By: #### C BCAD, LIPD, CMP, VITD, CRP, ESR #### [facility] [address] [place], [place] [id number] Platelets (Bld) [#/Vol] 354 10*3/uL Normal 140-400 [facility] Comment on above: Performed By: #### C BCAD, LIPD, CMP, VITD, CRP, ESR #### [facility] [address] [place], [place] [id number] RBC (Bld) [#/Vol] 4.35 10*6/uL Normal 3.90-5.20 [facility] Comment on above: Performed By: #### C BCAD, LIPD, CMP, VITD, CRP, ESR #### [facility] [address] [place], [place] [id number] RDW-SD 44.6 fL Normal 37.0-50.0 [place] [facility] Comment on above: Performed By: #### C BCAD, LIPD, CMP, VITD, CRP, ESR #### [facility] [address] [place], [place] [id number] WBC (Bld) [#/Vol] 6.5 10*3/uL Normal 3.8-11.0 [facility] [place] [facility] Comment on above: Performed By: #### C BCAD, LIPD, CMP, VITD, CRP, ESR #### [facility] [address] [place], [place] [id number] Comprehensive Metabolic Pane tripp 03-26-2021 Albumin [Mass/Vol] 4.1 g/dL Normal 3.6-5.1 [facility] [place] [facility] Comment on above: Performed By: #### C BCAD, LIPD, CMP, VITD, CRP, ESR #### [facility] [address] [place], [place] [id number] Albumin/Globulin [Mass ratio] 1.6 {ratio} Normal 1.0-2.5 [facility] Comment on above: Performed By: #### C BCAD, LIPD, CMP, VITD, CRP, ESR #### [facility] [address] [place], [place] [id number] ALP [Catalytic activity/Vol] 96 U/L Normal 35-119 [facility] Comment on above: Performed By: #### C BCAD, LIPD, CMP, VITD, CRP, ESR #### [facility] [address] [place], [place] [id number] ALT [Catalytic activity/Vol] 22 U/L Normal 6-33 [facility] Comment on above: Result Comment: 01/09 Female reference range changed. Performed By: #### C BCAD, LIPD, CMP, VITD, CRP, ESR #### [facility] [address] [place], [place] [id number] Anion gap [Moles/Vol] 15 mmol/L Normal 12-20 [facility] Comment on above: Result Comment: Effe ctive 02/14/2019 reference range changed. Performed By: #### C BCAD, LIPD, CMP, VITD, CRP, ESR #### [facility] [address] [place], [place] [id number] AST [Catalytic activity/Vol] 22 U/L Normal 9-34 [facility] Comment on above: Performed By: #### C BCAD, LIPD, CMP, VITD, CRP, ESR #### [facility] [address] [place], [place] [id number] BUN/CREA 25 Ratio High 6-22 [facility] Comment on above: Performed By: #### C BCAD, LIPD, CMP, VITD, CRP, ESR #### [facility] [address] [place], [place] [id number] Calcium [Mass/Vol] 10.1 mg/dL Normal 8.6-10.[address] [facility] Comment on above: Performed By: #### C BCAD, LIPD, CMP, VITD, CRP, ESR #### [facility] [address] [place], [place] [id number] Chloride [Moles/Vol] 104 mmol/L Normal 98-107 [facility] Comment on above: Performed By: #### C BCAD, LIPD, CMP, VITD, CRP, ESR #### [facility] [address] [place], [place] [id number] CO2 [Moles/Vol] 27 mmol/L Normal 20-31 [facility] Comment on above: Performed By: #### C BCAD, LIPD, CMP, VITD, CRP, ESR #### [facility] [address] [place], [place] [id number] Creatinine [Mass/Vol] 0.7 mg/dL Normal 0.6-1.4 [facility] Comment on above: Performed By: #### C BCAD, LIPD, CMP, VITD, CRP, ESR #### [facility] [address] [place], [place] [id number] eGFRAA 104 mL/min/1.73m2 Normal >60 [facility] Comment on above: Performed By: #### C BCAD, LIPD, CMP, VITD, CRP, ESR #### [facility] [address] [place], [place] [id number] eGFRNAA 86 mL/min/1.73m2 Normal >60 [place] [facility] Comment on above: Performed By: #### C BCAD, LIPD, CMP, VITD, CRP, ESR #### [facility] [address] [place], [place] [id number] Globulin (S) [Mass/Vol] 2.6 g/dL Normal 1.9-3.7 [facility] Comment on above: Performed By: #### C BCAD, LIPD, CMP, VITD, CRP, ESR #### [facility] [address] [place], [place] [id number] Glucose [Mass/Vol] 90 mg/dL Normal 65-99 [facility] Comment on above: Result Comment: For FASTING Glucose --- ADA reference ranges: Normal 65-99 mg/dl Prediabetes 100-125 Diabetes >/= 126 Performed By: #### C BCAD, LIPD, CMP, VITD, CRP, ESR #### [facility] [address] [place], [place] [id number] Potassium [Moles/Vol] 4.7 mmol/L Normal 3.5-5.5 [facility] Comment on above: Performed By: #### C BCAD, LIPD, CMP, VITD, CRP, ESR #### [facility] [address] [place], [place] [id number] Protein [Mass/Vol] 6.7 g/dL Normal 6.1-8.1 [facility] Comment on above: Performed By: #### C BCAD, LIPD, CMP, VITD, CRP, ESR #### [facility] Laboratory [address], [place] [id number] Sodium [Moles/Vol] 142 mmol/L Normal 135-146 [facility] [employer] Comment on above: Performed By: #### C BCAD, LIPD, CMP, VITD, CRP, ESR #### [facility] [address], [place] [id number] TBIL <0.3 Normal [facility] [employer] Comment on above: Performed By: #### C BCAD, LIPD, CMP, VITD, CRP, ESR #### [facility] [address], [place] [id number] Urea nitrogen [Mass/Vol] 18 mg/dL Normal 7-25 [facility] [employer] Comment on above: Performed By: #### C BCAD, LIPD, CMP, VITD, CRP, ESR #### [facility] [address], [place] [id number] Lipid Panelon 03-26-2021 Cholesterol [Mass/Vol] 217 mg/dL High 125-200 [facility] Comment on above: Result Comment: Low risk < 200mg/dL Borderline risk 201-239 mg/dl High risk > or equal to 240 Performed By: #### C BCAD, LIPD, CMP, VITD, CRP, ESR #### [facility] [address], [place] [id number] Cholesterol in HDL [Mass/Vol] 57 mg/dL Normal >40 [facility] [employer] Comment on above: Result Comment: High Cardiovascular Risk HDL <40 mg/dL Low Cardiovascular Risk HDL > or equal to 60 mg/dl Performed By: #### C BCAD, LIPD, CMP, VITD, CRP, ESR #### [facility] [address], [place] [id number] Cholesterol in LDL [Mass/Vol] 134 mg/dL Normal [facility] Specialist Comment on above: Result Comment: LDL ATP III CLASSIFICATION LDL less than 100 mg/dl Optimal LDL 100-129 mg/dl Near or above optimal LDL 130-159 Borderline high LDL 160-189 High LDL greater than 189 mg/dl Very High Performed By: #### C BCAD, LIPD, CMP, VITD, CRP, ESR #### [facility] [address], [place] [id number] Cholesterol in VLDL [Mass/Vol] 26 mg/dL Normal [facility] Comment on above: Performed By: #### C BCAD, LIPD, CMP, VITD, CRP, ESR #### [facility] [address], [place] [id number] Cholesterol.total/Chol esterol in HDL [Mass ratio] 4 {ratio} Normal [facility] Comment on above: Performed By: #### C BCAD, LIPD, CMP, VITD, CRP, ESR #### [facility] [address], [place] [id number] Triglyceride [Mass/Vol] 128 mg/dL Normal 30-150 [facility] [employer] Comment on above: Result Comment: TRIG ATPIII CLASSIFICATIONS TRIG less than 150 mg/dl Normal TRIG 150-199 mg/dl Borderline High TRIG 200-500 mg/dl High TRIG greather than 500 mg/dl Very High Performed By: #### C BCAD, LIPD, CMP, VITD, CRP, ESR #### [facility] [address] [place], [place] [id number] RBC Sedimentation Rateon ESR (Bld) [Velocity] 44.00 mm/h High 0.00-20.00 [facility] Comment on above: Performed By: #### C BCAD, LIPD, CMP, VITD, CRP, ESR #### [facility] [address], [place] [id number] Vitamin D 25-OHon 03-26-2021 VIT D 25 OH 56 ng/ml Normal >29 [facility] Comment on above: Result Comment: Cindy min D Status Deficiency <20 ng/mL Insufficiency 20-29 ng/mL Optimal 30-100 ng/mL Possible Toxicity >=150 ng/mL Performed By: #### C BCAD, LIPD, CMP, VITD, CRP, ESR #### [facility] [address], [place] [id number] FEMUR RIGHT 2 VWSon 03-22-19 22 FEMUR RIGHT 2 S [facility] Department of Radiology [address] [place] [id number] Patient Name: KEILA RICHARDSON : 1970 [...] FEMUR RIGHT 2 S FEMUR RIGHT 2 [facility] CLINICAL INFORMATION: ortho follow up. right femur [...] osteopenia. Electronically signed: German Gamble. Transcribed by: [email or web address], User Resident: Electronically Signed by: GERMAN GABMLE @ 03/22/2021 03:08 PM Normal [facility] Comment on above: Order Comment: Evalu ate FEMUR RIGHT 2 [facility] 01-19-20 21 FEMUR RIGHT 2 S [facility] Department of Radiology [address] [place] [id number] Patient Name: KEILA RICHARDSON : 1970 Sex: F Age: Race: White Pt. Location: Patient Status: D Ordered Date: 01/18/2021 2:20:00 PM Completed Date: 01/18/2021 02:26 PM Requesting Provider: CHARLY FARIAS Attending Provider: CHARLY FARIAS Report Copy To: Signs & Symptoms: S72.401A Unsp fracture of lower end of right femur, init for clos fx I10 History: [place] Comments: Evaluate Exam: FEMUR RIGHT 2 VWS FEMUR RIGHT 2 VWS 01/18/2021 2:26 PM CLINICAL INDICATIONS: S72.401A Unsp [...] ORIF Electronically signed: Moncho Beyer. Transcribed by: [email or web address], User Resident: Electronically Signed by: MONCHO BEYER @ 01/20/2021 05:57 PM Normal [facility] Comment on above: Order Comment: Evalu ate XR femur RT 2V*on 11-16-2020 XR femur RT 2V* [facility] [employer] Other XR femur RT 2V* [facility] [employer] Other XR femur RT 2V* [address] [place] [address] [employer] Other XR femur RT 2V* [place] [address] N [facility] [employer] Other XR femur RT 2V* XRay Report [facility] [employer] Other XR femur RT 2V* Signed Ursa Mintigo Other XR femur RT 2V* Patient: Sanjana Richardson MR#: [id number] [facility] [employer] Other XR femur RT 2V* 09 [employer] Other XR femur RT 2V* : 1970 Acct:[id number] [employer] Other XR femur RT 2V* Age/Sex: 50 / F ADM Date: 11/16/20 [employer] Other XR femur RT 2V* Loc: [facility] Room: Type : REG CLI [employer] Other XR femur RT 2V* Attending Dr: Ewelina Arellano MD [employer] Other XR femur RT 2V* Ordering Provider: Shaina Arellano MD [employer] Other XR femur RT 2V* Date of Service: 11/16/20 [employer] Other XR femur RT 2V* XR/XR femur RT 2V*: Other closed fracture of distal end of right femur [employer] Other XR femur RT 2V* [facility] [employer] Other XR femur RT 2V* Copies to: Shaina Arellano MD [employer] Other XR femur RT 2V* Right femur 11/16/2020. [employer] Other XR femur RT 2V* CLINICAL DATA: Follo w-up right femur fracture repair. [employer] Other XR femur RT 2V* FINDINGS: 2 views of the right femur were obtained and are compared with a prior study 10/05/2020. [employer] Other XR femur RT 2V* There is redemonstra tion of postsurgical changes related to internal fixation of a fracture of the [employer] Other XR femur RT 2V* distal shaft of the femur with a hip screw and long intramedullary lópez as well as cerclage wires. [employer] Other XR femur RT 2V* Both fixation screws at the distal end of the intramedullary lópez are now broken. Overall bony [employer] Other XR femur RT 2V* alignment, however, appears relatively stable. The patient is status post total knee arthroplasty. [employer] Other XR femur RT 2V* The intramedullary r od has moved distally and is now closer to the femoral implant than before. [employer] Other XR femur RT 2V* X R/XR femur RT 2V* [employer] Other XR femur RT 2V* IMPRESSION: Findings as described [employer] Other XR femur RT 2V* Impression dictated by: Kashif Villalobos Jr., M.D.11/16/2020 2:43 PM [employer] Other XR femur RT 2V* Dictation Location: [place] [address] [employer] Other XR femur RT 2V* Transcribed By: [facility] 11/16/20 [facility] [employer] Other XR femur RT 2V* Dictated By: Kashif Villalobos Jr, MD 11/16/20 [facility] [employer] Other XR femur RT 2V* Signed By: [employer] [facility] [employer] Other XR femur RT 2V* 11/16/20 [facility] [employer] Other Vital Signs Date Time Vital Sign Value Performing Clinician Facility 10-08-2023 [id number] Body height 180.34 cm MD Maribell Alvarez Work Phone: [facility] 10-08-2023 10:04-0400 Body mass index (BMI) [Ratio] 38.9 kg/m2 MD Maribell Alvarez Work Phone: [facility] 10-08-2023 10:04-0400 Body weight 126.55 kg MD Maribell Alvarez Work Phone: [facility] 08-27-2023 02:46-0400 Body temperature 98 [degF] MD Maribell Alvarez Work Phone: [facility] 08-27-2023 02:46-0400 Diastolic blood pressure 70 mm[Hg] MD Maribell Alvarez Work Phone: [facility] 08-27-2023 02:46-0400 Heart rate 69 /min MD Maribell Alvarez Work Phone: [facility] 08-27-2023 02:46-0400 Respiratory rate 17 /min MD Maribell Alvarez Work Phone: [facility] 08-27-2023 02:46-0400 SaO2% (BldA) [Mass fraction] 96 % MD Maribell Alvarez Work Phone: [facility] 08-27-2023 02:46-0400 Systolic blood pressure 122 mm[Hg] MD Maribell Alvarez Work Phone: [facility] 08-26-2023 21:10-0400 Body height 180.34 cm MD Maribell Alvarez Work Phone: [facility] 08-26-2023 21:10-0400 Body weight 125.8 kg MD Maribell Alvarez Work Phone: [facility] 11-16-2020 12:15-0400 Body height 180.34 cm Shaina Arellano Other [employer] Other 11-16-2020 12:15-0400 Body mass index (BMI) [Ratio] 27.05 kg/m2 Shaina Arellano Other [employer] Other 11-16-2020 12:15-0400 Body weight 88 kg Shaina Arellano Other [employer] Other Encounters Encounter Date Encounter Type Care Provider Facility Start: 10-26-2023 End: 10-26-2023 ambulatory DAJA BECKY Not Available Start: 10-08-2023 End: 10-08-2023 ambulatory MD Maribell Alvarez Work Phone: [facility] Work Phone: Start: 10-08-2023 End: 10-08-2023 Patient encounter procedure MD Maribell Alvarez Work Phone: [facility] Work Phone: Start: 10-06-2023 End: 10-06-2023 Patient encounter procedure MD Maribell Alvarez Work Phone: [facility] [address] Work Phone: Start: 10-06-2023 End: 10-06-2023 ambulatory MD Maribell Alvarez Work Phone: [facility] Work Phone: Start: 09-28-2023 End: 09-28-2023 ambulatory DAJA BECKY Not Available Start: 09-08-2023 End: 09-08-2023 ambulatory MD Maribell Alvarez Work Phone: [facility] Work Phone: Start: 09-08-2023 End: 09-08-2023 Patient encounter procedure MD Maribell Alvarez Work Phone: [facility] Work Phone: Start: 09-08-2023 End: 09-08-2023 Patient encounter procedure MD Maribell Alvarez Work Phone: [facility] Start: 09-08-2023 End: 09-08-2023 ambulatory MD Maribell Alvarez Work Phone: [facility] Work Phone: Start: 08-31-2023 End: 08-31-2023 ambulatory MD Maribell Alvarez Work Phone: [facility] Work Phone: Start: 08-31-2023 End: 08-31-2023 Patient encounter procedure MD Maribell Alvarez Work Phone: [facility] Work Phone: Start: 08-26-2023 End: 08-27-2023 Emergency department patient visit MD Maribell Alvarez Work Phone: [facility] Work Phone: Start: 08-11-2023 End: 08-11-2023 ambulatory MARIBELL ALVAREZ Not Available Start: 08-07-2023 ambulatory Lois Che Facility:[facility] Start: 03-14-2022 End: 03-15-2022 ambulatory [facility] Start: 01-28-2022 End: 01-29-[address] MARIBELL ALVAREZ Facility:[facility] Start: 01-23-2022 End: 01-24-2022 ambulatory ALEXANDRA OROPEZA Facility:[facility] Start: 01-14-2022 ambulatory MONET MULLINS [facility] Start: 01-10-2022 End: 01-11-2022 [facility] Start: 12-13-2021 End: 12-14-2021 ambulatory MONET MULLINS [facility] Start: 12-13-2021 End: 12-13-2021 ambulatory MONET MULLINS [facility] Start: 12-11-2021 End: 12-12-2021 ambulatory [facility] Start: 12-06-2021 End: 12-07-2021 Emergency department patient visit ARIANNA ANDERSON [facility] Start: 11-28-2021 Evaluation and management of inpatient [facility] Start: 11-28-2021 Evaluation and management of inpatient [facility] Start: 11-27-2021 Evaluation and management of inpatient [facility] Start: 11-27-2021 Evaluation and management of inpatient [facility] Start: 11-27-2021 Encounter for preprocedural laboratory examination DR DOCTOR ROB [facility] Start: 11-27-2021 End: 11-29-2021 Evaluation and management of inpatient [facility] Start: 11-25-2021 End: 11-26-[address] DOCTOR [...] 03-27-2021 End: 03-27-2021 ambulatory Shaina Arellano Other [employer] Other Start: 03-27-2021 Telephone encounter Shaina Calvey [facility] Start: 03-26-2021 End: 03-27-[address] MO PELLETIER Facility:[facility] Start: 02-26-2021 End: 02-26-2021 ambulatory Shaina Calvey Other [employer] Other Start: 02-26-2021 Telephone encounter Shaina Calvey [facility] Start: 12-19-2020 End: 12-19-2020 ambulatory Shaina Calvey Other [employer] Other Start: 12-19-2020 Telephone encounter Shaina Calvey [facility] Start: 12-17-2020 End: 12-17-2020 ambulatory Shaina Calvey Other [employer] Other Start: 12-17-2020 Telephone encounter Shaina Woodward [facility] [employer] Director Start: 11-30-2020 Office outpatient vi sit 25 minutes Shaina Arellano [facility] Start: 11-28-2020 Telephone encounter Shaina Arellano Trace [facility] Start: 11-27-2020 Telephone encounter Sahina Woodward [facility] Start: 11-22-2020 Telephone encounter Shaina Woodward [facility] Start: 11-16-2020 Office outpatient vi sit 25 minutes Shaina Arellano [facility] Procedures Date Procedure Procedure Detail Performing Clinician Start: 10-06-2023 MRI of right shoulder Angeline Alvarez Work Phone: Start: 09-08-2023 Plain X-ray of right shoulder [...] on above: Performed By: #### [address] 2586 ####[place] [address] [address] Plan of Treatment Date Care Activity Detail Author Start: 09-08-2023 Plain X-ray of right shoulder XR shoulder RT min 2V* [facility] Start: 09-08-2023 XR Shoulder - right Views [facility] Start: 08-26-2023 CT cervical spine without contrast CT cervical spine wo con [facility] Start: 08-26-2023 CT Cervical spine WO contrast [facility] Start: 08-26-2023 CT Chest WO contrast Fi [facility] Start: 08-26-2023 CT of chest without contrast CT chest wo con [facility] Start: 08-26-2023 Pelvis X-ray XR pelvis 1-2V [facility] Start: 08-26-2023 Plain X-ray of right femur XR femur RT 2V* [facility] Start: 08-26-2023 Plain X-ray of right humerus XR humerus RT* [facility] Start: 08-26-2023 Plain X-ray of right shoulder XR shoulder RT min 2V* [facility] Start: 08-26-2023 XR Femur - right 2 Views [facility] Start: 08-26-2023 XR Humerus - right Views [facility] Start: 08-26-2023 XR Pelvis 1 or 2 Views [facility] Start: 08-26-2023 XR Shoulder - right Views [facility] Start: 04-17-2022 ambulatory Ambulatory Facility:H 1 MR Shoulder - right WO contrast [facility] Patient Education Rotator cuff i njury Rib Fracture or Bruised Rib ED Shoulder Pain ED Opioids for Short-Term Treatment of Pain ED [facility] Work Phone: Patient referral [facility] Work Phone: Immunizations Immunization Date Immunization Notes Care Provider Lynn mackey 06-06-2020 COVID-19 Jeromy Castorena (Pfizer) MD Maribell Alvarez Work Phone: [facility] 05-16-2020 COVID-19 Jeromy Castorena (Pfizer) MD Maribell Alvarez Work Phone: [facility] Payers Date Payer Category Payer Self-pay [id number] 2021 Unknown [id number] 1970 Unknown [id number] 2.16.84 [id number] 1970 Unknown [id number] 2.16.84 0.1.980784.3.579.2.593 1970 Unknown [id number] 2.16.84 0.1.912875.3.579.2.593 1970 Unknown [id number] 2.16.84 0.1.549792.3.579.2.593 1970 Unknown [id number] 2.16.84 0.1.337508.3.579.2.593 1970 Unknown [id number] .16.84 0.1.893028.3.579.2.593 1970 Unknown [id number] .16.84 0.1.550687.3.579.2.593 1971 Unknown [id number] .16.84 0.1.450247.3.579.2.593 1971 Unknown [id number] .16.84 0.1.777568.3.579.2.593 1971 Unknown [id number] .16.84 0.1.218924.3.579.2.593 1970 Unknown [id number] .16.84 0.1.170785.3.579.2.1259 1970 Unknown [id number] 2.16.84 0.1.609972.3.579.2.1259 1970 Unknown [id number] .16.84 0.1.956374.3.579.2.1259 Unknown [id number] 2.1 [id number] Unknown [facility] [id number] Unknown [id number] 2.16.8 40.1.591189.3.579.2.531 Unknown [id number] 2.16.8 40.1.136871.3.579.2.531 Unknown [id number] 2.16.8 40.1.805856.3.579.2.531 Social History Date Type Detail Facility Sex Assigned At [employer] [facility] [employer] Other Start: 08-26-2023 [facility] Start: 1970 Sex Assigned At Female [facility] Medical Equipment Procedure Code Equipment Code Equipment Origin al Text Equipment Identifier Dates Orthopaedic bone screw, non-bioabsorbable, non-sterile [id number] FDA Start: 07-28-2020 Orthopaedic bone screw, non-bioabsorbable, non-sterile ()[id number] FDA Start: 07-28-2020 Femur nail, sterile ()[id number] [id number] FDA Start: 07-28-2020 Orthopaedic bone screw, non-bioabsorbable, sterile ()[id number] [id number] FDA Start: 07-28-2020 Internal orthopa edic fixation system, cerclage wire/cable, sterile ()[id number] [id number] FDA Start: 07-28-2020 Internal orthopa edic fixation system, cerclage wire/cable, sterile ()[id number] [id number] FDA Start: 07-28-2020 Clinical Notes 11-16-2020 to 03-14-2022 Note Date & Type Note Facility 03-14-2022 Note Orthopedic Surgery Subjective Follow-up of the Left Hip 03/14/22 Keila Richardson is a 51 y.o. female presenting for follow-up of Left hip joint posterolateral total hip arthroplasty using [place] dual mobility implants on 11/27/21. States that [...] ANGIOGRAM W AND/OR WO IV CONTRAST 11/28/[address]21 [facility] [address] IMAGING FEMUR FRACTURE SURGERY Left X2 [...] Randolph MD Orthopaedic Surgery, Resident Ortho Pager [phone] 03/14/22 1:35 PM I am available via [employer] chat 6a-6p. May contact the on-call resident with any concerns via the Orthopaedic pager at any time. By using the attestations below, the signing clinician agrees that I have read and verify that the documentation has been personally reviewed by me and ensure that the documentation accurately reflects the encounter. GC: I personally saw this patient on the day of the encounter, performed the aayla portion(s) of the service and participated in the management and confirm the resident's documentation. Please note there may be an additional personal documentation from me. Dr. Leo Ortega MD MRCSEd Assembler Tester orthopedic surgery-[facility] 01-29-2022 Note PROCEDURE: XR FOOT R T [...] authenticated by: PATTI THOMPSON Date: 2022-01-29 17:23 [facility] 01-23-2022 Note CONSULTATION CONSULTATION DATE: 01/23/2022 HISTORY [...] She does follow up with Orthopedics in [place]. Back in June of 2021, she did [...] to medically maintain her narcotics. Refill for Liberty 5/325 two pills twice a day for pain. We will maintain baclofen 10 mg q.h.s. We will follow up with the patient in three months' time unless otherwise indicated. Patient agrees with this plan. [facility] 01-14-2022 Note Subjective Patient ID: Keila Richardson is a 51 y.o. female who presents for Follow-up. HPI: Patient is a 51-year-old female who was origianlly referred to the outpatient rheumatology clinic by Dr. Antonio WONG with [facility] in [facility]. Reason for referral will ask arthritis at [...] SI joints, abraham views were ordered Called [phone] on 01/14/22 at 1051 Verified patient name and date of . Verified patient was in a safe location and able to speak freely. Verified patient was in the state of [place] at the time of our telephone conversation. [...] time of visit. (more content not included)... [facility] 01-10-2022 Note Orthopedic Surgery Subjective Chief complaint: [...] ANGIOGRAM W AND/OR WO IV CONTRAST 11/28/2021 [facility] [address] IMAGING FEMUR FRACTURE SURGERY Left X2 [...] resolve. Alek Neumann MD PGY-3 Orthopedic Surgery [facility] By using the attestations below, the signing [...] be an additional personal documentation from me. [facility] 12-13-2021 Note Keila Richardson is a 51 y.o. female who is being seen in the outpatient rheumatology clinic today for the chief concerns of abnormal labs, early onset OA, PCP concern for inflammatory arthritis. HPI: Patient is a 51-year-old female referred to the outpatient rheumatology clinic by Dr. Antonio WONG with [facility] in [facility]. Reason for referral will ask arthritis at [...] capsule 1 tablet, oral, Every morning HYDROcodone-acetaminophen (Liberty) 5-325 mg tablet 2 tablets, oral, 2 times daily Flonase, generic Past Surgical History: Procedure Laterality Date CT CHEST ANGIOGRAM W AND/OR WO IV CONTRAST 11/28/2021 CT CHEST ANGIOGRAM W AND/OR WO IV CONTRAST 11/28/2021 [facility] [address] IMAGING FEMUR FRACTURE SURGERY Left X2 HYSTERECTOMY KNEE ARTHROPLASTY Bilateral KNEE ARTHROSCOPY W/ DEBRIDEMENT Bilateral PARTIAL HYSTERECTOMY Surgical history: - Arthrocentesis of left knee x1 on each knee - Arthrocentesis right knee x1 on each knee - Vaginal hysterectomy 2008 - enlarged uterus, horrible intolerable cramping, heavy menses (ovaries remained) - Lasruchi 2007 - ORIF right distal femur cerclage [...] file Social hi (more content not included)... [facility] 12-11-2021 Note Subjective Keila Richardson is 51 y.o. and is now 2 weeks post left total hip arthroplasty. Pain is controlled with current analgesics. Medications being used: ibuprofen (OTC) and narcotic analgesics including hydrocodone/acetaminophen (Lorcet, Lortab, Liberty, Vicodin). The patient denies fever, wound drainage, [...] her Motrin as (more content not included)... [facility] 11-29-2021 Note Physical Therapy Physical Therapy Treatment [...] Treatment: Therapeutic Activity Therapeutic Activity Time Entry: 23 Therapeutic Activity 1: pt performs bed mobility, [...] 6 Clicks T (more content not included)... [facility] 11-29-2021 Note Pt ready for dischar and [facility] Lenny Sahu accepted for [facility]. Sent final AVS and discharge order via [employer]. Therapy worked with pt this afternoon and reported she could go home. Discussed with pt who is agreeable. 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 Pts [...] ambulation, or functional (more content not included)... [facility] 11-29-2021 Note ------ Attestation signed by Aryan [...] ???F) Oral 107 18 97 % -- 11/28/211707 107/59 36.8 ???C (98.2 ???F) Oral 84 [...] Ori Chavis MD PGY2, Internal Medicine Resident [facility] 11-29-2021 Note Subjective Doing well this morning [...] dvt proph. -PT/OT. Alek Neumann Ortho PGY3 [facility] 11-28-2021 Note Physical Therapy Physical Therapy Evaluation [...] ANGIOGRAM W AND/OR WO IV CONTRAST 11/28/[address] [facility] [address] IMAGING FEMUR FRACTURE SURGERY Left X2 [...] Level of Function Prior Function Level of Pope: Needs assistance with ADLs, Needs assistance with [...] Contact guard Qual (more content not included)... [facility] 11-28-2021 Note Occupational Therapy Occupational Therapy Evaluation Patient Name: Keila Richardson Today's Date: 11/28/2021 Mary Lou Zimmer, S/OT This session was completed under the [...] ANGIOGRAM W AND/OR WO IV CONTRAST 11/28/2021 [facility] [address] IMAGING FEMUR FRACTURE SURGERY Left X2 [...] Level of Function Prior Function Level of Pope: Independent with ADLs and functional transfers, Independent [...] Reaching for o (more content not included)... [facility] 11-28-2021 Note Pt is POD1 from left [...] opposed to SNF if needed. Pt stated [facility] would be fine for [facility]. Sent referral via [employer]. [facility] 11-28-2021 Note ------ Attestation signed by Aryan [...] Ori Chavis MD PGY2, Internal Medicine Resident [facility] 11-28-2021 Note Occupational Therapy Pt is unable to be seen for therapy at this time secondary to CT/TE. Pt currently off floor at this time. Will continue to check back as appropriate. Time attempted: 12:26 Mary Lou Zimmer S/OT This session was completed under the supervision of Ibrahima Louise OTR/L [facility] 11-28-2021 Note Subjective Doing well this morning. [...] norco. -ASA for dvt proph. -PT/OT. Alek Slade PGY3 [facility] 11-27-2021 Note Patient: Keila guallpa Procedure Summary Date: 11/27/21 Room / Location: [facility] OPERATING ROOM 02 / [facility] Operating Room Anesthesia Start: 1242 Anesthesia Stop: [...] Hydration status: acceptable No notable events documented. [facility] 11-27-2021 Note Airway Date/Time: 11/27/2021 12:55 PM Urgency: elective Airway not difficult General Information and Staff Patient location during procedure: OR Anesthesiologist: Zan Celestin MD Resident/BREAKER UP/CAA: WOODY Lee Performed: other anesthesia staff Indications [...] before airway management; Intubation by medical student [facility] 11-27-2021 Note Patient: Keila guallpa Procedure Information Date/Time: 11/27/21 1130 Procedure: ARTHROPLASTY, HIP, TOTAL (Left: Hip) - Jason REP NOTIFIED TE Location: [facility] OPERATING ROOM 02 / [facility] Operating Room Surgeons: Leo Ortega MD Relevant [...] Plan discussed with CAA. Additional Equipment Requests [facility] 10-29-2021 Note CONSULTATION CONSULTATION DATE: 10/29/2021 CHIEF COMPLAINT: Severe left hip pain and left knee pain. HISTORY OF PRESENT ILLNESS: This is a very pleasant, 51-year-old female, who has severe osteoarthritis of the left hip. The patient is scheduled for seeing an orthopedic surgeon on November 06 at [facility] for a total hip replacement. 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 Activities aggravate the patient's pain. The patient reports pain as a 5/10. Currently, she takes Tylenol on a p.r.n. basis, Liberty 5/325 four tablets a day, baclofen 10 [...] total hip replacement on November 06 at [facility]. As such, we will maintain for the patient to return post surgical. [facility] 07-02-2021 Note CONSULTATION CONSULTATION DATE: 07/02/2021 CHIEF COMPLAINT: Left hip pain, left leg pain. HISTORY OF PRESENT ILLNESS: This is a 51-year-old female who is known to the [facility]. The patient recently had a reconstructive surgery of her right leg at [facility]. The patient had bone grafts, removal of [...] patient takes Advil on a p.r.n. basis, Liberty 5/325 two tablets b.i.d. and baclofen 10 [...] to follow up with the surgeon at [facility] next week. We requested that the patient bring the x-ray images along with the surgeons report with regards to her left hip. In addition to this, we would look to get authorization of the left trochanteric burse. Should the bursa injection be needed. The patient understands and would like to proceed. CC: Maribell Alvarez M.D. [facility] Signed and Approved by: DR MO PELLETIER . 07/16/2021 11:41:00 [facility] 05-01-2021 Note MR#: [id number] I [facility] Pt. Name: Keila Richardson Admitted: 04/10/2021 Discharged: [...] P/Chriss Chery MD Date Trans: 05/01/2021 01:43 P/saeo [id number] cc: Maribell Alvarez M.D. [facility] [address] [facility] [address] [facility] 03-26-2021 Note CONSULTATION CHIEF COMPLAINT: Right [...] currently doing well. She is maintained on Liberty 5/325 b.i.d. and Baclofen 10 mg which [...] The patient takes Aleve 800 mg b.i.d., Liberty 5/325 b.i.d. two tablets, Baclofen 10 mg [...] tablet p.o., b.i.d. along with maintaining the Liberty 5/325 1-2 tablets on a b.i. d. basis. The patient was educated as to mitigating and decreasing her narcotic levels so that postoperatively she would have a better recovery. Questions and answers were done. The patient will be followed up subsequent to the surgery. [facility] Signed and Approved by: DR MO PELLETIER . 04/02/2021 08:56:00 [facility] 11-30-2020 Evaluation note Encounter Date Diagnosis Assessment [...] Z98.890) Patient will have f/u xray at [facility] in 4 weeks. 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) Nov, Nicotine abuse (ICD-10 - Z72.0) [facility] Other 10-20-2021 Evaluation note* Encounter Date Diagnosis Assessment Notes Treatment Notes Treatment Clinical Notes Nov, Other type III open fracture of distal end of right femur with routine healing, subsequent encounter (ICD-10 - S72.491F) Nov, Other closed fracture of distal end of right femur with routine healing, subsequent encounter (ICD-10 - S72.491D) [facility] Other 10-08-2021 Evaluation note* Encounter Date Diagnosis [...] Other specified postprocedural states (ICD-10 - Z98.890) [employer] Other Evaluation noteNo InformationNort [employer] Other Evaluation noteNo assessment information available [facility] Work Phone: Evaluation note* Diagnosis Onset Date Resolution Status Contusion of shoulder, right acute Internal derangement of right shoulder acute Pain of right hip acute Rotator cuff tear, right acu te [facility] Work Phone: Evaluation note* Diagnosis Onset Date Resolution Status Contusion of shoulder, right acute Internal derangement of right shoulder acute Pain of right hip acute Rotator cuff tear, right acu te Contusion of shoulder, right acute Internal derangement of right shoulder acute Pain of right hip acute Rotator cuff tear, right acu te [facility] Work Phone: Evaluation note* Diagnosis Onset Date Resolution Status Contusion of shoulder, right acute Internal derangement of right shoulder acute Pain of right hip acute Rotator cuff tear, right acu te Contusion of shoulder, right acute Internal derangement of right shoulder acute Pain of right hip acute Rotator cuff tear, right acu te Tear of right infraspinatus tendon acute Tear of right supraspinatus tendon acute [facility] Work Phone: History general Narrative - Reported* Type Description Date Medical History Arthritis Surgical History Bilateral total knee replacemen t Surgical History Hysterectomy Hospitalization History See past surgical hx [facility] Other Hisngrs general Narrative - Reported* Type Description Date Medical History Arthritis Surgical History Bilateral total knee replacemen t Surgical History Hysterectomy Surgical History Right Femur Hospitalization History See past surgical hx [facility] Other Hospital Discharge instructions Additional Instructions As we discussed, there is no evidence of any fractures. Given your shoulder pain and inability to lift your shoulder away from your body, I am concerned about a rotator cuff tear. Sling is for comfort. Follow-up with the orthopedics doctor as we discussed. I did prescribe medication for pain. I will also prescribe a gentle laxative.[facility] Work Phone: Summary Purpose Family History [...] right femur with delayed healing, subsequent encounter (F21.376W) Referral Organization [facility] Referring Provider First Name Shaina Referring Provider Last Name Eileen Referring Provider Specialty Hand Surger y Referred Organization [facility] Referred Provider Mo Pelletier Referred Address [address] [place], [place],[address] Referred Provider Specialty Pain Medicin e Referral Priority Routine General Notes Hallie Wilkinson 11:26:16 AM >P2P Shu Glass 11/20/2020 04:43:43 PM > Patient called asking for a referral to [facility] pain management due to her insuranceHallie Wilkinson 11/22/2020 02:13:28 PM >[facility] does not have pain management, I called and spoke with patient and she asked for referral to be sent to [facility] since they take her insurance. Completed referral form for Dr Pelletier and informed patient that she will be contacted directly by his office to schedule appointment. Chief Complaint and Reason for Visit Chief Complaint Fall: rt shoulder in [facility] Chief Complaint Fall: rt shoulder in [facility] RT SHOULDER PAIN WX Reason for Visit Contusion of shoulde r, right Internal derangement of right shoulder Pain of right hip Rotator cuff tear, right Chief Complaint Fall: rt shoulder in [facility] RT SHOULDER PAIN WX M24.811 - Other specific joint derangements of rig 1 WEEK WX Reason for Visit Contusion of shoulde r, right Internal derangement of right shoulder Pain of right hip Rotator cuff tear, right Contusion of shoulder, right Internal derangement of right shoulder Pain of right hip Rotator cuff tear, right Chief Complaint Fall: rt shoulder in [facility] RT SHOULDER PAIN WX M24.811 1 WEEK WX Reason for Visit Contusion of shoulde r, right Internal derangement of right shoulder Pain of right hip Rotator cuff tear, right Contusion of shoulder, right Internal derangement of right shoulder Pain of right hip Rotator cuff tear, right Chief Complaint Fall: rt shoulder in [facility] RT SHOULDER PAIN WX M24.811 1 WEEK WX S40.011A Reason for Visit Contusion of shoulde r, right Internal derangement of right shoulder Pain of right hip Rotator cuff tear, right Contusion of shoulder, right Internal derangement of right shoulder Pain of right hip Rotator cuff tear, right Chief Complaint Fall: rt shoulder in [facility] RT SHOULDER PAIN WX M24.811 1 WEEK WX S40.011A MRI RESULTS Reason for Visit Contusion of shoulde r, right Internal derangement of right shoulder Pain of right hip Rotator cuff tear, right Contusion of shoulder, right Internal derangement of right shoulder Pain of right hip Rotator cuff tear, right Tear of right infraspinatus tendon Tear of right supraspinatus tendon Additional Source Comments INFORMATION SOURCE (unrecogn ized section and content) DATE CREATED AUTHOR 03/26/2021 [facility] DATE CREATED AUTHOR AUTHOR'S ORGANIZ ATION 10/19/2021 [facility] DATE CREATED AUTHOR AUTHOR'S ORGANIZ ATION 02/05/2022 [facility] DATE CREATED AUTHOR AUTHOR'S ORGANIZ ATION 03/18/2022 [facility] DATE CREATED AUTHOR AUTHOR'S ORGANIZ ATION 06/16/2023 Osiel Glasgow [facility] DATE CREATED AUTHOR AUTHOR'S ORGANIZ ATION 10/08/2023 [facility] DATE CREATED AUTHOR AUTHOR'S ORGANIZ ATION 10/27/2023 [facility] EPIC REASON FOR VISIT (unrecogniz ed section and content) Recheck Right KneeNo Informa tionNo InformationCT scanReview CT [facility] referralNo Informationxray orderxray images Care Teams (unrecognized [...] Team Status: Inactive Member Role Status Cheyanne Alvarez MD Primary Care Provider Active S [...] Team Status: Inactive Member Role Status Cheyanne Alvarez MD Primary Care Provider Active S [...] Team Status: Inactive Member Role Status Cheyanne Alvarez MD Primary Care Provider Active S tart: October 06, 2023 End: October 06, 2023 Moncho Johnson MD Attending Provider Active Star t: October 06, 2023 End: October 06, 2023 Team Status: Inactive Member Role Status Dates Maribell Alvarez MD Primary Care Provider Active S tart: October 08, 2023 End: October 08, 2023 Moncho Johnson MD Attending Provider Active Star t: October 08, 2023 End: October 08, 2023 Goals (unrecognized section and content) [...] BE BASED ON THE PRIMARY CLINICAL RECORDS. [facility] [employer] provides no warranty or guarantee of the accuracy or completeness of information in this document.
== END 2023-11-04 11:00 | disposition home or self-care (01) ==
LOC: MAMMO 10:59
PROVIDERS: PCP Physician Assistant; Visit Provider Physician Assistant
DX: R92.8 Other abnormal and inconclusive findings on diagnostic imaging of breast (principal); N63.13 Unspecified lump in the right breast, lower outer quadrant
CPT/HCPCS: 76642; 77065

== ENCOUNTER 2023-11-12 08:54 | Day surgery (SDC) | payer OTHER, SELFPAY ==
--- OUTSIDE RECORDS SUMMARY | 2023-11-12 08:58 | XMS_ITS | CCD ---
Author Organization [facility] Care Team Providers Care Shooter'S Helper Name Role Phone hSaina Arellano Unavailable ANTONIO, DR REYNA Consulting Unavailable [...] Unavailable MD Maribell Alvarez Primary Care Provider [phone] MD Moncho Chao Jr Emergency Provider MD Moncho Johnson Attending Provider [phone] Moncho Chao Jr Attending Unavailable Moncho Chao [...] to adverse reactions to drug (disorder) 2 [facility] Repository Medications Current Medications Medication Drug [...] 12:43pm docusate sodium 50 mg / sennosides, fci 8.6 mg oral tablet (6 sources) Start: [...] encounter; Translations: [Failed orthopedic implant, initial encounter T84.687T] Onset: 11-16-2020 Resolved: 11-30-2020 Episodic Other connective [...] conon - MR shoulder RT wo con [facility] [place] [address] [place] [address] MRI Report Signed Patient: Keila Richardson MR#: [id number] 09 : 1970 Acct:[id number] Age/Sex: 53 / F ADM Date: 10/06/23 Loc: [facility] Room: Type: [facility] Attending Dr: Moncho Johnson MD Copies to: [...] Baires Jr., Abdi10/06/2023 4:14 PM Dictation Location: [place] [address] Transcribed By: [facility] 10/06/23 1614 Dictated By: Marin Baires Jr, DO 10/06/23 1602 Signed By: 10/06/23 1614 Normal [facility] XR shoulder RT min 2V*on XR shoulder RT min 2V* [facility] [address] [place] [address] XRay Report Signed Patient: Keila Richardson MR#: [id number] 09 : 1970 Acct:[id number] Age/Sex: 53 / F ADM Date: 09/08/23 Loc: [facility] Room: Type: [facility] Attending Dr: Moncho Johnson MD Copies to: [...] Felix Petit M.D.09/08/2023 3:45 PM Dictation Location: [place] [address] Transcribed By: [facility] 09/08/23 1545 Dictated By: Felix Petit DO 09/08/23 1543 Signed By: 09/08/23 1545 Normal [facility] Activated partial thrombopla stin time (aPTT) in platelet poor plasma by coagulation aOrdered By: Moncho Chao on 08-27-2023 aPTT Coag (PPP) [Time] 31.1 s 25.1-36.5 [facility] Comment on above: A hematocrit value g reater than 55% may lead to inaccurate results in coagulation testing. Patients having hematocrit values >55% require a special collection tube for coagulation studies. Please contact the laboratory at [phone] for redraw instructions. Alanine aminotransferase [En zymatic activity/volume] in Serum or PlasmaOrdered By: Moncho Chao on 08-27-2023 ALT [Catalytic activity/Vol] 44 U/L Normal 7-52 [facility] Comment on above: Performed By: #### P T, BNP, CMP, HS TROP, PTT, CBC #### [facility] [address] [place] [address] [place] Albumin [Mass/volume] in Ser um or Plasma by Bromocresol green (BCG) dye binding methoOrdered By: Moncho Chao on 08-27-2023 Albumin BCG dye [Mass/Vol] 4.1 g/dL 3.5-5.7 [facility] Alkaline phosphatase [Enzyma tic activity/volume] in Serum or PlasmaOrdered By: Moncho Chao on 08-27-2023 ALP [Catalytic activity/Vol] 79 U/L Normal 34-104 [facility] Comment on above: Performed By: #### P T, BNP, CMP, HS TROP, PTT, CBC #### [facility] [address] [place] [id number] [place] Aspartate aminotransferase [ Enzymatic activity/volume] in Serum or PlasmaOrdered By: Moncho Chao on 08-27-2023 AST [Catalytic activity/Vol] 57 U/L High 13-39 [facility] Comment on above: Performed By: #### P T, BNP, CMP, HS TROP, PTT, CBC #### [address] Automated basophil %Ordered By: Moncho Chao on 08-27-2023 Basophils/100 WBC (Bld) 0.5 % Normal . [facility] Comment on above: Performed By: #### P T, BNP, CMP, HS TROP, PTT, CBC #### [address] Automated basophil countOrde red By: Moncho Chao on 08-27-2023 Basophils (Bld) [#/Vol] 0.0 10*3/uL Normal 0.0-0.2 [facility] Comment on above: Result Comment: PERF ORMED BY: [place] [address] PATHOLOGIST [employer]ING [employer]IVER ESTELITA CAZARES M.D. Performed By: #### P T, BNP, CMP, HS TROP, PTT, CBC #### [address] Automated blood monocyte cou ntOrdered By: Moncho Chao on 08-27-2023 Monocytes (Bld) [#/Vol] 0.2 10*3/uL Normal 0.0-0.8 [facility] Comment on above: Performed By: #### P T, BNP, CMP, HS TROP, PTT, CBC #### [address] Automated eosinophil %Ordere d By: Moncho Chao on 08-27-2023 Eosinophils/100 WBC (Bld) 0.1 % Normal . [facility] Comment on above: Performed By: #### P T, BNP, CMP, HS TROP, PTT, CBC #### [address] Automated eosinophil countOr dered By: Moncho Chao on 08-27-2023 Eosinophils (Bld) [#/Vol] 0.0 10*3/uL Normal 0.0-0.45 [facility] Comment on above: Performed By: #### P T, BNP, CMP, HS TROP, PTT, CBC #### [address] Automated monocyte %Ordered By: Moncho Chao on 08-27-2023 Monocytes/100 WBC (Bld) 1.8 % Normal . [facility] Comment on above: Performed By: #### P T, BNP, CMP, HS TROP, PTT, CBC #### [address] Automated neutrophil %Ordere d By: Moncho Chao on 08-27-2023 Neutrophils/100 WBC (Bld) 86.1 % Normal . [facility] Comment on above: Performed By: #### P T, BNP, CMP, HS TROP, PTT, CBC #### [address] BNP ser/plasOrdered By: Constantino Chao on 08-27-2023 Natriuretic peptide B (Bld) [Mass/Vol] 19.0 pg/mL Normal 5-100 [facility] Comment on above: Result Comment: PERF ORMED BY: [place] [address] PATHOLOGIST [employer]ING [employer] ESTELITA CAZARES M.D. Performed By: #### P T, BNP, CMP, HS TROP, PTT, CBC #### [address] Bilirubin.total [Mass/volume ] in Serum or PlasmaOrdered By: Moncho Chao on 08-27-2023 Bilirubin [Mass/Vol] 0.6 mg/dL Normal 0.3-1.0 [facility] Comment on above: Performed By: #### P T, BNP, CMP, HS TROP, PTT, CBC #### [address] chest wo conon 08-27-2023 CT chest wo con [facility] [place] [address] [place] [address] CT Scan Report Signed Patient: Keila Richardson MR#: [id number] 09 : 1970 Acct:[id number] Age/Sex: 53 / F ADM Date: 08/26/23 Loc: ER Room: Type: [facility] ER Attending Dr: Copies to: Moncho Chao Jr, MD Ordering Provider: Moncho Chao Jr, MD Date of Service: 08/26/23 CT/CT cervical spine wo con: fall, neck pain ([id number]) CT/CT chest wo con: fall, R rib [...] Felix Petit M.D.08/27/2023 7:31 AM Dictation Location: [place] [address] Transcribed By: [facility] 08/27/23730 Dictated By: Felix Petit DO 08/27/23723 Signed By: 08/27/23730 Normal [facility] Calcium [Mass/volume] in Ser um or PlasmaOrdered By: Moncho Chao on 08-27-2023 Calcium [Mass/Vol] 9.6 mg/dL Normal 8.6-10.3 [facility] Comment on above: Performed By: #### P T, BNP, CMP, HS TROP, PTT, CBC #### [address] Carbon dioxide, total [Moles /volume] in Serum or PlasmaOrdered By: Moncho Chao on 08-27-2023 CO2 [Moles/Vol] 25.4 mmol/L Normal 21.0-31.0 [facility] Comment on above: Performed By: #### P T, BNP, CMP, HS TROP, PTT, CBC #### [address] Chloride [Moles/volume] in S main or PlasmaOrdered By: Moncho Chao on 08-27-2023 Chloride [Moles/Vol] 105 mmol/L Normal 98-107 [facility] Comment on above: Performed By: #### P T, BNP, CMP, HS TROP, PTT, CBC #### [address] Complete Blood Count Auto Di ffon 08-27-2023 Mean Corpuscular HGB Conc 33.9 g/dL Normal 32.0-35.0 [facility] Comment on above: Performed By: #### P T, BNP, CMP, HS TROP, PTT, CBC #### [address] Monocytes/100 WBC (Bld) 21.29 % High 0.00-20.00 [facility] Comment on above: Result Comment: For adults in ED, MDW > 20.0 may be associated with a higher risk of sepsis during the first 12 hrs of hospital admission Performed By: #### P T, BNP, CMP, HS TROP, PTT, CBC #### [address] NRBC% 0.0 /100{WBC} Normal 0-0.5 [facility] Comment on above: Performed By: #### P T, BNP, CMP, HS TROP, PTT, CBC #### [address] Comprehensive Metabolic Pane tripp 08-27-2023 Albumin [Mass/Vol] 4.1 g/dL Normal 3.5-5.7 [facility] Comment on above: Performed By: #### P T, BNP, CMP, HS TROP, PTT, CBC #### [address] Creatinine Clr Calc Pharmacy 126.85 Normal [facility] Comment on above: Result Comment: PERF ORMED BY: [place] [address] PATHOLOGIST [employer] ESTELITA CAZARES M.D. Performed By: #### P T, BNP, CMP, HS TROP, PTT, CBC #### [address] GFR/1.73 sq M.predicted MDRD (S/P/Bld) [Vol rate/Area] mL/min/{1.73_m2} Normal [facility] Comment on above: Performed By: #### P T, BNP, CMP, HS TROP, PTT, CBC #### [address] Creatinine [Mass/volume] in Serum or PlasmaOrdered By: Moncho Chao on 08-27-2023 Creatinine [Mass/Vol] 0.76 mg/dL Normal 0.60-1.20 [facility] Comment on above: Performed By: #### P T, BNP, CMP, HS TROP, PTT, CBC #### [address] Erythrocyte distribution wid th [Ratio] by Automated countOrdered By: Moncho Chao on 08-27-2023 Erythrocyte distribution width (RBC) [Ratio] 13.5 % Normal 11.9-15.3 [facility] Comment on above: Performed By: #### P T, BNP, CMP, HS TROP, PTT, CBC #### [address] Erythrocytes [#/volume] in B lood by Automated countOrdered By: Moncho Chao on 08-27-2023 RBC (Bld) [#/Vol] 4.75 10*6/uL Normal 3.60-5.[address] [facility] Comment on above: Performed By: #### P T, BNP, CMP, HS TROP, PTT, CBC #### [facility] [address] Glucose [Mass/volume] in Ser um or PlasmaOrdered By: Moncho Chao on 08-27-2023 Glucose [Mass/Vol] 141 mg/dL High 70-100 [facility] Comment on above: ADA recommended refe rence rangeRandom Glucose Reference Range is dependent on time and content of last meal. Glucose of more than 200 mg/dL in a nonstressed, ambulatory subject supports the diagnosis of Diabetes Mellitus. Result Comment: Alpha om Glucose Reference Range is dependent on time and content of last meal. Glucose of more than 200 mg/dL in a nonstressed, ambulatory subject supports the diagnosis of Diabetes Mellitus. ADA recommended reference range Performed By: #### P T, BNP, CMP, HS TROP, PTT, CBC #### [address] Hematocrit [Volume Fraction] of Blood by Automated countOrdered By: Moncho Chao on 08-27-2023 Hematocrit (Bld) [Volume fraction] 42.8 % Normal 34.0-46.4 [facility] Comment on above: Performed By: #### P T, BNP, CMP, HS TROP, PTT, CBC #### [facility] [address] Hemoglobin [Mass/volume] in BloodOrdered By: Moncho Chao on 08-27-2023 Hemoglobin (Bld) [Mass/Vol] 14.5 g/dL Normal 11.8-15.4 [facility] Comment on above: Performed By: #### P T, BNP, CMP, HS TROP, PTT, CBC #### [facility] [address] [place] [id number] [place] INR in Platelet poor plasma by Coagulation assayOrdered By: Moncho Chao on 08-27-2023 INR Coag (PPP) [Relative time] 1.0 {INR} Normal [facility] Comment on above: INR Therapeutic Rang e [...] BNP, CMP, HS TROP, PTT, CBC #### [facility] [address] [place] [address] Leukocytes [#/volume] correc alden for nucleated erythrocytes in Blood by Automated counOrdered By: Moncho Chao on 08-27-2023 WBC corrected for nucl RBC Auto (Bld) [#/Vol] 9.0 10*3/uL 3.8-11.6 [facility] Leukocytes [#/volume] in Blo od by Automated countOrdered By: Moncho Chao on 08-27-2023 WBC (Bld) [#/Vol] 9.0 10*3/uL Normal 3.8-11.6 [facility] Comment on above: Performed By: #### P T, BNP, CMP, HS TROP, PTT, CBC #### [facility] [address] [place] [address] Lymphocytes [#/volume] in Bl ood by Automated countOrdered By: Moncho Chao on 08-27-2023 Lymphocytes (Bld) [#/Vol] 1.0 10*3/uL Normal 1.00-4.8 [facility] Comment on above: Performed By: #### P T, BNP, CMP, HS TROP, PTT, CBC #### [facility] [address] [place] [address] Lymphocytes/100 leukocytes i n Blood by Automated countOrdered By: Moncho Chao on 08-27-2023 Lymphocytes/100 WBC (Bld) 11.5 % Normal . [facility] Comment on above: Performed By: #### P T, BNP, CMP, HS TROP, PTT, CBC #### [facility] [address] MCH [Entitic mass] by Automa alden countOrdered By: Moncho Chao on 08-27-2023 MCH (RBC) [Entitic mass] 30.6 pg Normal 24.7-34.3 [facility] Comment on above: Performed By: #### P T, BNP, CMP, HS TROP, PTT, CBC #### [facility] [address] [place] [address] MCHC Auto (RBC) [Mass/Vol]Or dered By: Moncho Chao on 08-27-2023 MCHC (RBC) [Mass/Vol] 33.9 g/dL 32.0-35.0 [facility] MCV [Entitic volume] by Auto mated countOrdered By: Moncho Chao on 08-27-2023 MCV (RBC) [Entitic vol] 90.2 fL Normal 80-100 [facility] Comment on above: Performed By: #### P T, BNP, CMP, HS TROP, PTT, CBC #### [facility] [address] [place] [address] Monocyte distribution width [Entitic volume] in Blood by AutomatedOrdered By: Moncho Chao on 08-27-2023 Monocyte distribution width Auto (Bld) [Entitic vol] 21.29 % High 0.00-20.00 [facility] Comment on above: For adults in ED, MD W > 20.0 may be associated with a higher risk of sepsis during the first 12 hrs of hospital admission Neutrophils [#/volume] in Bl ood by Automated countOrdered By: Moncho Chao on 08-27-2023 Neutrophils (Bld) [#/Vol] 7.7 10*3/uL Normal 1.8-7.7 [facility] Comment on above: Performed By: #### P T, BNP, CMP, HS TROP, PTT, CBC #### [address] No Panel InformationOrdered By: Moncho Chao on 08-27-2023 Estimated GFR (CKD-EPI) > 60.0 mL/Min [facility] Creatinine Clearance (Chem 126.85 [facility] Nucleated erythrocytes [Pres ence] in Blood by Automated countOrdered By: Moncho Chao on 08-27-2023 Nucleated RBC Auto Ql (Bld) 0.0 /100{WBC} 0-0.5 [facility] Partial Thromboplastin Timeo n 08-27-2023 aPTT Coag (Bld) [Time] 31.1 s Normal 25.1-36.5 [facility] Comment on above: Result Comment: A he matocrit value greater than 55% may lead to inaccurate results in coagulation testing. Patients having hematocrit values >55% require a special collection tube for coagulation studies. Please contact the laboratory at [phone] for redraw instructions. PERFORMED BY: [address] [place] [address] PATHOLOGIST [employer]ING [employer] ESTELITA CAZARES M.D. Performed By: #### P T, BNP, CMP, HS TROP, PTT, CBC #### [address] Platelet mean volume [Entiti c volume] in Blood by Automated countOrdered By: Moncho Chao on 08-27-2023 Platelet mean volume (Bld) [Entitic vol] 7.3 fL Normal 6.3-10.7 [facility] Comment on above: Performed By: #### P T, BNP, CMP, HS TROP, PTT, CBC #### [address] Platelets [#/volume] in Bloo d by Automated countOrdered By: Moncho Chao on 08-27-2023 Platelets (Bld) [#/Vol] 382 10*3/uL Normal 150-450 [facility] Comment on above: Performed By: #### P T, BNP, CMP, HS TROP, PTT, CBC #### [place] [address] [place] Potassium [Moles/volume] in Serum or PlasmaOrdered By: Moncho Chao on 08-27-2023 Potassium [Moles/Vol] 3.8 mmol/L Normal 3.5-5.1 [facility] Comment on above: Performed By: #### P T, BNP, CMP, HS TROP, PTT, CBC #### [facility] [address] Protein [Mass/volume] in Ser um or PlasmaOrdered By: Moncho Chao on 08-27-2023 Protein [Mass/Vol] 7.7 g/dL Normal 6.4-8.9 [facility] Comment on above: Performed By: #### P T, BNP, CMP, HS TROP, PTT, CBC #### [address] Prothrombin time (PT)Ordered By: Moncho Chao on 08-27-2023 PT Coag (PPP) [Time] 11.6 s Normal 9.0-12.9 [facility] Comment on above: A hematocrit value g reater than 55% may lead to inaccurate results in coagulation testing. Patients having hematocrit values >55% require a special collection tube for coagulation studies. Please contact the laboratory at [phone] for redraw instructions. Result Comment: A he matocrit value greater than 55% may lead to inaccurate results in coagulation testing. Patients having hematocrit values >55% require a special collection tube for coagulation studies. Please contact the laboratory at [phone] for redraw instructions. Performed By: #### P T, BNP, CMP, HS TROP, PTT, CBC #### [facility] [address] Serum globulin measurement b y calculation (mass/volume)Ordered By: Moncho Chao on 08-27-2023 Globulin (S) [Mass/Vol] 3.6 g/dL Normal [facility] Comment on above: Performed By: #### P T, BNP, CMP, HS TROP, PTT, CBC #### [address] Serum or plasma albumin/glob ulin mass ratioOrdered By: Moncho Chao on 08-27-2023 Albumin/Globulin [Mass ratio] 1.1 {ratio} Normal [facility] Comment on above: Performed By: #### P T, BNP, CMP, HS TROP, PTT, CBC #### [address] Serum or plasma anion gap de terminationOrdered By: Moncho Chao on 08-27-2023 Anion gap [Moles/Vol] 11.4 mmol/L Normal 6.0-15.0 [facility] Comment on above: Performed By: #### P T, BNP, CMP, HS TROP, PTT, CBC #### [facility] [address] [place] [address] Sodium [Moles/volume] in Ser um or PlasmaOrdered By: Moncho Chao on 08-27-2023 Sodium [Moles/Vol] 138 mmol/L Normal 136-145 [facility] Comment on above: Performed By: #### P T, BNP, CMP, HS TROP, PTT, CBC #### [facility] [address] [place] [address] Troponin I High Sensitivityo n 08-27-2023 Troponin I High Sensitivity 3.5 pg/mL Normal 0.0-15.0 [facility] Comment on above: Result Comment: PERF ORMED BY: [place] [address] PATHOLOGIST [employer] ESTELITA CAZARES M.D. Performed By: #### P T, BNP, CMP, HS TROP, PTT, CBC #### [facility] [address] [place] [address] Troponin I.cardiac [Mass/vol ume] in Serum or Plasma by Detection limit <= 0.01 ng/Ordered By: Moncho Chao on 08-27-2023 Troponin I.cardiac DL <= 0.01 ng/mL [Mass/Vol] 3.5 pg/mL 0.0-15.0 [facility] Urea nitrogen [Mass/volume] in Serum or PlasmaOrdered By: Moncho Chao on 08-27-2023 Urea nitrogen [Mass/Vol] 15 mg/dL Normal 7-25 [facility] Comment on above: Performed By: #### P T, BNP, CMP, HS TROP, PTT, CBC #### [facility] [address] [place], [place] [address] [facility] XR femur RT 2V*on 08-27-2023 XR femur RT 2V* [facility] [place] [id number] XRay Report Signed Patient: Keila Richardson MR#: [id number] 09 : 1970 Acct:[id number] Age/Sex: 53 / F ADM Date: 08/26/23 Loc: ER Room: Type: [facility] ER Attending Dr: Copies to: Moncho Chao Jr, MD Ordering Provider: Moncho Chao Jr, MD Date of Service: 08/26/23 XR/XR femur RT 2V*: Fall ([id number]) XR/XR humerus RT*: Fall ([id number]) XR/XR shoulder RT min 2V*: Fall ([id number]) XR/XR pelvis 1-2V: Fall 3 views right [...] Felix Petit M.D.08/27/2023 7:35 AM Dictation Location: [place] [address] Transcribed By: [facility] 08/27/2335 Dictated By: Felix Petit DO 08/27/23 0731 Signed By: 08/27/23 0735 Normal [facility] ECG 12 lead ECGon 08-26-2023 [address] [facility] [place] [id number] Electrocardiograph Report Signed Patient: Keila Richardson MR#: [id number] 09 : 1970 Acct:[id number] Age/Sex: 53 / F ADM Date: 08/26/23 Loc: ER Room: Type: [facility] ER Attending Dr: Ordering Provider: Moncho Chao [...] was found Confirmed by CHET ESPARZA MD ([facility]) on 08/29/2023 1:27:04 PM Referred By: Electronically Signed By: CHET ESPARZA MD Transcribed By: MUS Signed By Chet Esparza MD 0 08/29/23 1327 Normal [facility] Follow-Upon 03-14-2022 Follow-Up [id number] Markcinthia chambers 1970 Provider Department Center 03/14/2022 LEO MARSHALL MP ORTHO MPORTHO No family history on file Level of Service:19789 [place] OFFICE/OUTPATIENT ESTABLISHED LOW MDM 20-29 MIN (GC) Reason for Visit and Comments: Follow-up [854339] Normal [facility] Telemedicineon 01-14-2022 Telemedicine [id number] DylanSanjana chambers 1970 Provider Department Center 01/14/2022 John[facility] RHEUM Carlos Heal No family history on file Level of Service:29990 [place] PHYS/QHP TELEPHONE EVALUATION 5-10 MIN Reason for Visit and Comments: Follow-up [031404] Normal [facility] Office Visiton 01-10-2022 Follow-up visit [id number] Sanjana Richardson 1970 F Date Provider Department Center 01/10/2022 CHARLY MENA MP ORTHO MPORTHO No family history on file Level of Service:00065 [place] OFFICE/OUTPATIENT ESTABLISHED LOW MDM 20-29 MIN () Reason for Visit and Comments: Pain [136] - Patient has had increased pain in right leg where her femur was repaired since her Left hip replacement 6 weeks ago. Normal [facility] 37on 12-13-2021 37 Please call the [employer] ic with any emergent concerns at [phone] ([facility] location) Spock messages may take up to 3 business [...] insoles (orthotics) in your shoes if a extrusion technician/specialist/occ upational therapist has recommended them Don???t: -Do [...] spectrum disorders do not have symptoms. Another [facility] website to review is: [email or web address] [email or web address] e Normal [facility] Office Visiton 12-13-2021 Follow-up visit [id number] Sanjana Richardson 1970 F Date Provider Department Center 12/13/2021 John[facility] RHEUM Carlos Heal No family history on file Level of Service:77574 [place] OFFICE/OUTPATIENT NEW LOW [facility] 30-44 MINUTES Reason for Visit and Comments: New Patient [632] - Referral is in [place]. Patient request to be scheduled in December after recovery from her hip surgery in October. Normal [facility] SJOGRENS SYNDROME ANTIBODIES A AND Bon 12-13-2021 KIRSTIN TO SSA (RO) ANTIBODY Negative Normal Negative [facility] Comment on above: Performed By: #### L AB344 ####[facility] (BEAKER)[address] [place] [address] KIRSTIN TO SSB ([place]) ANTIBODY Negative Normal Negative [facility] Comment on above: Performed By: #### L AB344 ####[facility] (RAMIREZ)[address] [place] [address] Office Visiton 12-11-2021 Follow-up visit [id number] Sanjana Richardson 1970 F Date Provider Department Center 12/11/2021 433-LEO ORTEGA MP ORTHO MPORTHO No family history on file Level of Service:73594 [place] POSTOP FOLLOW UP VISIT RELATED TO ORIGINAL PX Reason for Visit and Comments: Post-op [483] - 1st PO [facility] 36on 12-09-2021 36 Per Doctor Giovanny Dunham; patient was told to go to ER. [facility] CONSULTon 12-07-2021 CONSULT Reason For [...] 10*3/uL Final So (more content not included)... [facility] 36on 12-06-2021 36 Patient called in an d stated during her home exercises she heard a pop and she is concerned that something pop out of place and it was in her bubba area. [facility] EDNURSon 12-06-2021 EDNURS 1 week post of total hip. C/o imcreased pain to hip radiating to groin. Normal [facility] EDPROVon 12-06-2021 EDPROV [facility] Andrew GARCÍA [facility] [id number] EMERGENCY DEPARTMENT ENCOUNTER CHIEF COMPLAINT No chief complaint on file. HISTORY OF PRESENT ILLNESS 51-year-old female with past medical history of obesity brought to the emergency department by her for left hip worsening pain. Patient had a total hip replacement done [facility] [facility]o clinic a week ago Thursday. [...] this chart in the absence of a nuclear plant construction worker. Procedures RADIOLOGY: Radiologist interpretat (more content not included)... [facility] Telephoneon 12-06-2021 Telephone [id number] Sanjana Richardson reyes 1970 F Date Provider Department [place] 12/06/2021 433LEO HAMMOND MP ORTHO MPORTHO No family history on file Reason for Visit and Comments: Hip Pain [[id number]] [facility] 36on 12-03-2021 36 Spoke with Mrs Cesar harmon to see how she was doing after her recent surgery with Dr Ortega. She stated she is doing well the pain is manageable with medications and ice. She is taking all the medications she was prescribed at discharge. She denies any redness, drainage, or major swelling. [facility] Telephoneon 12-03-2021 Telephone [id number] Sanjana Richardson 1970 Date [facility] Department [place] 12/03/2021 KWABENA CM MP ORTHO MPORTHO No family history on file [facility] 29on 11-29-2021 29 Encounter addended b y: Alek Neumann MD on: 12/17/2021 3:22 PM Actions taken: Clinical Note Signed [facility] DSon 11-29-2021 DS Admission Admitted [...] HYDROcodone-acetaminophen 5-325 mg tablet Commonly known as: [place] Where to Get Your Medications You can [...] Pending At (more content not included)... Normal [facility] 30on 11-28-2021 30 The patient is [...] baseline comfort level Outcome: Not Progressing Normal [facility] 30 The patient is Moder ately Stable - Low risk of patient condition declining or worsening The patient's goals for the shift include comfort and rest The clinical goals for the shift include pain management Over the shift, the patient did not make progress toward the following goals. Barriers to progression include N/A. Recommendations to address these barriers include N/A. Normal [facility] BASIC METABOLIC PANELon 10-2 Anion gap [Moles/Vol] 8 mmol/L Normal 7-20 [facility] Comment on above: Performed By: #### L [id number] ####[facility] (BEAKER)[address] [place] [address] Calcium [Mass/Vol] 8.3 mg/dL Low 8.6-10.3 [facility] Comment on above: Performed By: #### L [id number] ####[facility] ([facility]ER)[address] [place] [address] Chloride [Moles/Vol] 105 mmol/L Normal 98-107 [facility] Comment on above: Performed By: #### L [id number] ####[facility] ([facility])[address] [place] [address] CO2 [Moles/Vol] 24 mmol/L Normal 21-31 [facility] Comment on above: Performed By: #### L [id number] ####[facility] ([facility])[address] [place] [address] Creatinine [Mass/Vol] 0.66 mg/dL Normal 0.60-1.20 [facility] Comment on above: Performed By: #### L [id number] ####[facility] ([facility]ER)[address] [place] [address] GLOMERULAR FILTRATION RATE ML/MIN/1.73 SQ M.PREDICTED 103.3 mL/min/1.73m*2 Normal >60.0 [facility] Comment on above: Result Comment: The [facility]???s estimated glomerular filtration rate (eGFR) will [...] of individuals. Performed By: #### L [id number] ####[facility] ([facility])[address] [place] [address] Glucose [Mass/Vol] 122 mg/dL High 70-100 [facility] Comment on above: Performed By: #### L [id number] ####[facility] ([facility])[address] [place] [address] Potassium [Moles/Vol] 4.4 mmol/L Normal 3.5-5.1 [facility] Comment on above: Performed By: #### L [id number] ####[facility] ([facility])[address] [place] [address] Sodium [Moles/Vol] 137 mmol/L Normal 136-145 [facility] Comment on above: Performed By: #### L [id number] ####[facility] ([facility])[address] [place] [address] Urea nitrogen [Mass/Vol] 19 mg/dL Normal 7-25 [facility] Comment on above: Performed By: #### L [id number] ####[facility] ([facility])[address] [place] [address] UREA NITROGEN/CREATININE (MASS RATIO) IN SER/PLAS 28.79 Normal [facility] Comment on above: Performed By: #### L [id number] ####[facility] ([facility])[address] [place] [address] CBCon 11-28-2021 Erythrocyte distribution width (RBC) [Ratio] 13.1 % Normal 11.5-15.0 [facility] Comment on above: Performed By: #### L [id number] ####[facility] ([facility])[address] [place], [place] [address] ERYTHROCYTE MEAN CORPUSCULAR HEMOGLOBIN CONCENTRATION (G/DL) BY AUTOMATED 32.5 g/dL Normal 32.0-35.0 [facility] Comment on above: Performed By: #### L [id number] ####[facility] ([facility])[address] [place] [address] Hematocrit (Bld) [Volume fraction] 36.0 % Normal 36.0-48.0 [facility] Comment on above: Performed By: #### L [id number] ####[facility] ([facility])[address] [place] [address] Hemoglobin (Bld) [Mass/Vol] 11.7 g/dL Low 12.0-15.0 [facility] Comment on above: Performed By: #### L [id number] ####[facility] ([facility]AKER)[address] [place] [address] MCH (RBC) [Entitic mass] 29.5 pg Normal 27.0-33.0 [facility] Comment on above: Performed By: #### L [id number] ####[facility] ([facility]ER)[address] [place] [address] MCV (RBC) [Entitic vol] 90.9 fL Normal 82.0-98.0 [facility] Comment on above: Performed By: #### L [id number] ####[facility] ([facility]ER)[address] [place] [address] PLATELETS (10*3/UL) IN BLOOD AUTOMATED COUNT 381 10*3/uL Normal 150-400 [facility] Comment on above: Performed By: #### L [id number] ####[facility] ([facility]ER)[address] [place] [address] RBC (Bld) [#/Vol] 3.96 10*6/uL Normal 3.80-5.00 [facility] Comment on above: Performed By: #### L [id number] ####[facility] ([facility])[address] [place] [address] WBC (Bld) [#/Vol] 13.69 10*3/uL High 4.00-10.60 [facility] Comment on above: Performed By: #### L [id number] ####[facility] ([facility])[address] [place] [address] CT CHEST ANGIOGRAM W AND/OR WO IV [...] hepatic steatosis. Electronically signed: Daniel Meza. Normal [facility] Comment on above: Order Comment: CTA W ITH contrast POCT GLUCOSE METER UNSOLICIT ED RESULTSon 11-28-2021 Glucose [Mass/Vol] 84 mg/dL Normal 70-105 [facility] Comment on above: Result Comment: rsha w2 Performed By: #### L [id number] ####[facility] ([facility])[address] [place] [address] APTTon 11-27-2021 ACTIVATED PARTIAL THROMBOPLASTIN TIME IN PPP BY COAGULATION ASSAY 35.0 Seconds Normal 25.0-35.0 [facility] Comment on above: Performed By: #### L [id number] ####[facility] ([facility])[address] [place] [address] BASIC METABOLIC PANELon 11-09 Anion gap [Moles/Vol] 9 mmol/L Normal 7-20 [facility] Comment on above: Performed By: #### L [id number] ####[facility] ([facility])[address] [place] [address] Calcium [Mass/Vol] 9.0 mg/dL Normal 8.6-10.3 [facility] Comment on above: Performed By: #### L [id number] ####[facility] ([facility])[address] [place] [address] Chloride [Moles/Vol] 102 mmol/L Normal 98-107 [facility] Comment on above: Performed By: #### L [id number] ####[facility] ([facility])[address] [place] [address] CO2 [Moles/Vol] 27 mmol/L Normal 21-31 [facility] Comment on above: Performed By: #### L [id number] ####[facility] ([facility])[address] [place] [address] Creatinine [Mass/Vol] 0.77 mg/dL Normal 0.60-1.20 [facility] Comment on above: Performed By: #### L [id number] ####[facility] ([facility])[address] [place] [address] GLOMERULAR FILTRATION RATE ML/MIN/1.73 SQ M.PREDICTED 90.3 mL/min/1.73m*2 Normal >60.0 [facility] Comment on above: Result Comment: The [facility]???s estimated glomerular filtration rate (eGFR) will [...] of individuals. Performed By: #### L [id number] ####[facility] ([facility])[address] [place] [address] Glucose [Mass/Vol] 159 mg/dL High 70-100 [facility] Comment on above: Performed By: #### L [id number] ####[facility] ([facility])[address] [place] [address] Potassium [Moles/Vol] 4.6 mmol/L Normal 3.5-5.1 [facility] Comment on above: Performed By: #### L [id number] ####[facility] ([facility])[address] [place] [address] Sodium [Moles/Vol] 138 mmol/L Normal 136-145 [facility] Comment on above: Performed By: #### L [id number] ####[facility] ([facility])[address] [place] [address] Urea nitrogen [Mass/Vol] 21 mg/dL Normal 7-25 [facility] Comment on above: Performed By: #### L [id number] ####[facility] ([facility])[address] [place] [address] UREA NITROGEN/CREATININE (MASS RATIO) IN SER/PLAS 27.27 Normal [facility] Comment on above: Performed By: #### L [id number] ####[facility] (BEAKER)[address] [place] [address] CBCon 11-27-2021 Erythrocyte distribution width (RBC) [Ratio] 13.2 % Normal 11.5-15.0 [facility] Comment on above: Performed By: #### L [id number] ####[facility] ([facility]ER)[address] [place] [address] ERYTHROCYTE MEAN CORPUSCULAR HEMOGLOBIN CONCENTRATION (G/DL) BY AUTOMATED 32.8 g/dL Normal 32.0-35.0 [facility] Comment on above: Performed By: #### L [id number] ####[facility] ([facility])[address] [place] [address] Hematocrit (Bld) [Volume fraction] 41.5 % Normal 36.0-48.0 [facility] Comment on above: Performed By: #### L [id number] ####[facility] ([facility])[address] [place] [address] Hemoglobin (Bld) [Mass/Vol] 13.6 g/dL Normal 12.0-15.0 [facility] Comment on above: Performed By: #### L [id number] ####[facility] ([facility])[address] [place] [address] MCH (RBC) [Entitic mass] 29.6 pg Normal 27.0-33.0 [facility] Comment on above: Performed By: #### L [id number] ####[facility] ([facility])[address] [place] [address] MCV (RBC) [Entitic vol] 90.4 fL Normal 82.0-98.0 [facility] Comment on above: Performed By: #### L [id number] ####[facility] ([facility])[address] [place] [address] PLATELETS (10*3/UL) IN BLOOD AUTOMATED COUNT 386 10*3/uL Normal 150-400 [facility] Comment on above: Performed By: #### L [id number] ####[facility] ([facility]ER)[address] [place] [address] RBC (Bld) [#/Vol] 4.59 10*6/uL Normal 3.80-5.00 [facility] Comment on above: Performed By: #### L [id number] ####[facility] (BEAKER)[address] [place] [address] WBC (Bld) [#/Vol] 14.15 10*3/uL High 4.00-10.60 [facility] Comment on above: Performed By: #### L [id number] ####[facility] ([facility])[address] [place] [address] CONSULTon 11-27-2021 CONSULT ----- ----- Attestation signed [...] concerned about the acute hypoxia and asked [facility] consults team to evaluate the patient. She [...] mg by mouth at bedtime. 11/26/2021 HYDROcodone-acetaminophen ([place]on) 5-325 mg tablet Take 2 tablets by [...] No friction (more content not included)... Normal [facility] D-DIMER, QUANTITATIVEon 11-09 FIBRIN D-DIMER (UG/L FEU) IN PLATELET POOR PLASMA 2.69 mcg/mL FEU High 0.27-0.49 [facility] Comment on above: Order Comment: D-Dim er values of less than 0.50 ug/ml (FEU) are considered to be a negative predictor of thrombosis. However, the D-Dimer result should be used in conjunction with pretest probability and should not be used alone to diagnose a thrombotic event. Performed By: #### L [id number] ####[facility] ([facility])[address] [place] [address] HPon 11-27-2021 History Of Present Illness Keila [...] to when she previously had. Is taking Trenton for pain, no physical therapy, got injection [...] mg by mouth at bedtime. 11/26/2021 HYDROcodone-acetaminophen ([place]) 5-325 mg tablet Take 2 tablets by [...] and me (more content not included)... Normal [facility] HP H&P reviewed. The esvin hyde was examined and there are no changes to the H&P. Normal [facility] MRSA/MSSA DNA NASALon 2021 MRSA DNA Negative Normal Negative, Invalid [facility] Comment on above: Performed By: #### L [id number] ####[facility] ([facility]AKER)[address] [place] [address] MSSA DNA Negative Normal Negative, Invalid [facility] Comment on above: Performed By: #### L [id number] ####[facility] (BEAKER)[address] [place] [address] OPNOTEon 11-27-2021 OPNOTE ARTHROPLASTY, HIP, T OTAL (L) Operative Note Date: 11/27/2021 Location: [facility] OR Name: Keila Richardson, : 1970, Diagnosis Pre-op Diagnosis * Osteoarthritis of left hip, unspecified osteoarthritis type [M16.12] Post-op Diagnosis * Osteoarthritis of left hip, unspecified osteoarthritis type [M16.12] * 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 Alek Neumann MD resident orthopedic surgery [...] FEMORAL HEAD Implanted 28 mm outer diameter CATHOLIC ADM/MDM X 3 INSERT Implanted Alpha code E Staff: Circular Saw Edge Fuser: Alexus Agosto RN Relief Circular Saw Edge Fuser: Bonita Tomlinson RN Relief Scrub: Cristiane Solares CST Scrub Person: Caty Clark CST Attendant Coin Operated Laundry: Milad Avelar CSA Indications: Keila Richardson is [...] for left primary total hip arthroplasty using Levelland implants. Risk and benefits of the procedure [...] Procedure: The patient was taken to the [facility] orders placed in supine position. Following [...] deep through (more content not included)... Normal [facility] OPNOTE ----- ----- Attestation signed by Leo Ortega MD at 11/27/2021 3:35 PM I was present for the entire procedure. ----- Date: 11/27/2021 Location: [facility] OR Name: Keila Richardson : 1970, Diagnosis Pre-op Diagnosis * Osteoarthritis of left hip, unspecified osteoarthritis type [M16.12] Post-op Diagnosis * Osteoarthritis of left hip, unspecified osteoarthritis type [M16.12] Procedures ARTHROPLASTY, HIP, TOTAL [address]166 - [place] ARTHRP ACETBLR/PROX FEM PROSTC AGRFT/ALGRFT Surgeons * [...] Implanted BIOLOX DELTA CERAMIC FEMORAL HEAD Implanted CATHOLIC ADM/MDM X 3 INSERT Implanted Staff: Circular Saw Edge Fuser: Alexus Agosto RN Relief Circular Saw Edge Fuser: Bonita Tomlinson RN Relief Scrub: Cristiane Solares CST Scrub Person: Caty Clark CST Attendant Coin Operated Laundry: Milad Avelar CSA Indications: Keila Richardson is [...] Alek Neumann Ortho PGY3 Leo [place] Normal [facility] POCT GLUCOSE METER UNSOLICIT ED RESULTSon 11-27-2021 Glucose [Mass/Vol] 96 mg/dL Normal 70-105 [facility] Comment on above: Result Comment: ltol les Performed By: #### L [id number] ####[facility] (BEAKER)[address] [place] [address] PROTIME-INRon 11-27-2021 INR IN PPP BY COAGULATION ASSAY 0.99 Normal 0.90-1.10 [facility] Comment on above: Result Comment: ACCC [...] CHEST 1995;108:[id number]. Performed By: #### L [id number] ####[facility] (BEAKER)[address] [place] [address] PROTHROMBIN TIME (PT) IN PPP BY COAGULATION ASSAY 13.1 Seconds Normal 12.3-14.8 [facility] Comment on above: Performed By: #### L [id number] ####[facility] ([facility]AKER)[address] [place] [address] TYPE AND SCREENon 11-27-2021 AB SCREEN Negative Normal [facility] Comment on above: Performed By: #### L [id number] ####[facility], ABO group Nom (Bld) O Normal [facility] Comment on above: Performed By: #### L [id number] ####[facility], RH TYPE IN BLOOD Positive Normal [facility] Comment on above: Performed By: #### L [id number] ####[facility], 36on 11-26-2021 36 Test was faxed by reg paz on 11/25/2021, telegraphic typewriter operator chief called patient to let her know. Normal [facility] Orders Onlyon 11-26-2021 Orders Only [id number] Sanjana Richardson 1970 F Date Provider Department Center 11/26/2021 [id number], HISTORICAL [facility] PAT [facility] Medical No family history on file Normal [facility] Covid-19 PCR (CVDTB)on 11-09 SARS-CoV-2 (COVID-19) RNA RAKAN+probe Ql (Unsp spec) Not detected Normal NOT DETECTED [facility] Comment on above: Result Comment: This test is not yet approved or cleared by the [place] FDA. When there are no FDA-approved or cleared tests available, and other criteria are met, FDA can make tests available under an emergency access mechanism called an Emergency Use Authorization (EUA). The EUA for this test is supported by the Food And Nutrition Services Assistant of Health and Human Service's (HHS's) declaration [...] SARS-CoV-2. Performed By: #### C VDTBH #### [facility] [id number] Laura Chavis [id number] 11-20-2021 [id number] NPO after MN Must have a oil truck driver to take you home and someone to stay for 24 hours after surgery. No jewelry. Hold the meds we spoke about: MVI, NSAIDS, HERBAL SUPP. X 1 WEEK Take the meds we spoke about w/a sip of water DOS: VICODIN PRN Bring insurance card and ID. [facility] 29on 11-19-2021 29 Addended by: KELSEY DINERO on: 11/19/2021 03:02 PM Modules accepted: Orders, CrowSet Normal [facility] Orders Onlyon 11-19-2021 Orders Only [id number] Sanjana Richardson reyes 1970 F Date Provider Department Center 11/19/2021 3186-KELSEY DINERO ORTHO MPORTHO No family history on file [facility] Covid-19 PCR (CVDTB)on 10-11 SARS-CoV-2 (COVID-19) RNA RAKAN+probe Ql (Unsp spec) Not detected Normal NOT DETECTED [facility] Comment on above: Result Comment: This test is not yet approved or cleared by the [place] FDA. When there are no FDA-approved or cleared tests available, and other criteria are met, FDA can make tests available under an emergency access mechanism called an Emergency Use Authorization (EUA). The EUA for this test is supported by the Food And Nutrition Services Assistant of Health and Human Service's (HHS's) declaration [...] consistent with SARS-CoV-2. Performed By: #### [facility] #### [facility] [address] [address] [address] Laura Chavis [id number] 11-01-2021 [id number] NPO after MN Must have a oil truck driver to take you home and someone to stay for 24 hours after surgery. No jewelry. Hold the meds we spoke about: NSAIDS AND VITAMINS AND MINERALS Take the meds we spoke about w/a sip of water DOS: NORCO PRN Bring insurance card and ID. [facility] 36on 10-31-2021 36 I called and spoke [...] stated she got her labs done at [facility], they are to fax over to us. RN faxed over covid lab order. Normal [facility] Orders Onlyon 10-31-2021 Orders Only [id number] Sanjana Richardson 1970 F Date Provider Department [place] 10/31/2021 LAURA BERMUDEZ ORTHO MPORTHO No family history on file Normal [facility] Telephoneon 10-31-2021 Telephone [id number] Sanjana Richardson 1970 F Date Provider Department [place] 10/31/2021 KWABENA CM ORTHO MPORTHO No family history on file Reason for Visit and Comments: Pre-op education [Other] Normal [facility] CBC AUTO DIFFon 10-29-2021 BASO # 0.0 103/ul Normal 0.0-0.1 [facility] Comment on above: Performed By: #### C BC #### [facility] [address] [place] [address] Dr. Laura Chavis Basophils/100 WBC (Bld) 0.3 % Normal 0.2-2.0 [facility] Comment on above: Performed By: #### C BC #### [facility] [address] [place] [address] Dr. Laura Chavis EO # 0.1 103/ul Normal 0.0-0.7 [facility] Comment on above: Performed By: #### C BC #### [facility] [address] [place] [address] Dr. Laura Chavis Eosinophils/100 WBC (Bld) 0.6 % Critically low 0.9-7.0 [facility] Comment on above: Performed By: #### C BC #### [facility] [address] [place] [address] Dr. Laura Chavis Erythrocyte distribution width (RBC) [Ratio] 14.3 % Normal 11.0-15.0 [facility] Comment on above: Performed By: #### C BC #### [facility] [address] [place] [address] Dr. Laura Chavis Hematocrit (Bld) [Volume fraction] 41.4 % Normal 36.0-48.0 [facility] Comment on above: Performed By: #### C BC #### [facility] [address] [place] [address] Dr. Laura Chavis Hemoglobin (Bld) [Mass/Vol] 13.0 g/dL Normal 12.0-16.0 [facility] Comment on above: Performed By: #### C BC #### [facility] [address] [place] [address] Dr. Laura Chavis IG # 0.07 10e3/ul Critically high 0.00-0.03 [facility] Comment on above: Performed By: #### C BC #### [facility] [address] [place] [address] Dr. Laura Chavis IG % 0.6 % Critically high 0.0-0.5 [facility] Comment on above: Performed By: #### C BC #### [facility] [address] [place] [address] Dr. Laura Chavis LYMPH # 4.4 103/ul Critically high 1.2-3.8 [facility] Comment on above: Performed By: #### C BC #### [facility] [address] [place] [address] Dr. Laura Chavis Lymphocytes/100 WBC (Bld) 39.4 % Normal 20.5-60.0 [facility] Comment on above: Performed By: #### C BC #### [facility] [address] [place] [address] Dr. Laura Chavis MANUAL DIFF REQ NO Normal [facility] Comment on above: Performed By: #### C BC #### [facility] [address] [address] [address] Laura Chavis MCH (RBC) [Entitic mass] 28.7 pg Normal 26.7-34.0 [facility] Comment on above: Performed By: #### C BC #### [facility] [address] [place] [address] Dr. Laura Chavis MCHC (RBC) [Mass/Vol] 31.4 g/dL Normal 29.9-35.2 [facility] Comment on above: Performed By: #### C BC #### [facility] [address] [place] [address] Dr. Laura Chavis MCV (RBC) [Entitic vol] 91.4 fL Normal 81.0-99.0 [facility] Comment on above: Performed By: #### C BC #### [facility] [address] [place] [address] Dr. Laura Chavis MONO # 0.8 103/ul Normal 0.3-0.8 [facility] Comment on above: Performed By: #### C BC #### [facility] [address] [place] [address] Dr. Laura Chavis Monocytes/100 WBC (Bld) 6.9 % Normal 1.7-12.0 [facility] Comment on above: Performed By: #### C BC #### [facility] [address] [place] [address] Dr. Laura Chavis NEUT # 5.8 103/ul Normal 1.4-6.5 [facility] Comment on above: Performed By: #### C BC #### [facility] [address] [place] [address] Dr. Laura Chavis Neutrophils/100 WBC (Bld) 52.2 % Normal 43.0-75.0 [facility] Comment on above: Performed By: #### C BC #### [facility] [address] [place] [address] Dr. Laura Chavis Platelet mean volume (Bld) [Entitic vol] 8.8 fL Critically low 9.5-13.5 [facility] Comment on above: Performed By: #### C BC #### [facility] [address] [place] [address] Dr. Laura Chavis PLT 365 103/ul Normal 150-450 [facility] Comment on above: Performed By: #### C BC #### [facility] [address] [place] [address] Dr. Laura Chavis RBC 4.53 106/ul Normal 4.20-5.40 [facility] Comment on above: Performed By: #### C BC #### [facility] [address] [place] [address] Dr. Laura Chavis WBC 11.2 103/ul Critically high 4.0-11.0 [facility] Comment on above: Performed By: #### C BC #### [facility] [address] [place] [address] Dr. Laura Chavis MRSA NARES #1on 10-29-2021 MRSA NARES #1 Culture Observations : NO GROWTH OF MRSA AT 48 HOURS. Normal [facility] Comment on above: Performed By: #### M RSAN1 #### [facility] [address] [place] [address] Dr. Laura Chavis PROF CHEM 8 (BAS METB)on Anion gap [Moles/Vol] 8.3 mmol/L Normal [facility] Comment on above: Performed By: #### B MP #### [facility] [address] [place] [address] Dr. Laura Chavis Calcium [Mass/Vol] 9.0 mg/dL Normal 8.5-10.1 [facility] Comment on above: Performed By: #### B MP #### [facility] [address] [place] [address] Dr. Laura Chavis Chloride [Moles/Vol] 105 mmol/L Normal 98-107 [facility] Comment on above: Performed By: #### B MP #### [facility] [address] [place] [address] Dr. Laura Chavis CO2 [Moles/Vol] 30.4 mmol/L Normal 21.0-32.0 [facility] Comment on above: Performed By: #### B MP #### [facility] [address] [address] [address] Laura Chavis Creatinine [Mass/Vol] 0.92 mg/dL Normal 0.55-1.02 [facility] Comment on above: Performed By: #### B MP #### [facility] [address] [address] [address] Laura Chavis EGFR-AF EMIRATI >60 Normal >=60 [facility] Comment on above: Performed By: #### B MP #### [facility] [address] [address] [address] Laura Chavis EGFR-NON AF EMIRATI >60 Normal >=60 [facility] Comment on above: Performed By: #### B MP #### [facility] [address] [address] [address] Laura Chavis Glucose [Mass/Vol] 87 mg/dL Normal 74-106 [facility] Comment on above: Performed By: #### B MP #### [facility] [address] [address] [address] Laura Chavis Potassium [Moles/Vol] 3.7 mmol/L Normal 3.5-5.1 [facility] Comment on above: Performed By: #### B MP #### [facility] [address] [address] [address] Laura Chavis Sodium [Moles/Vol] 140 mmol/L Normal 136-145 [facility] Comment on above: Performed By: #### B MP #### [facility] [address] [address] [address] Laura Chavis Urea nitrogen [Mass/Vol] 19.0 mg/dL Critically high 7.0-18.0 [facility] Comment on above: Performed By: #### B MP #### [facility] [address] [address] [address] Laura Chavis Urea nitrogen/Creatinine [Mass ratio] 20.7 mg/mg Normal [facility] Comment on above: Performed By: #### B MP #### [facility] [address] [address] [address] Laura Chavis PROTIMEon 10-29-2021 INR Coag (PPP) [Relative time] 0.95 {INR} Normal [facility] Comment on above: Performed By: #### C VDTBH #### [facility] [address] [place] [address] Dr. Laura Chvais INR GUIDELINES SEE BELOW Normal [facility] Comment on above: Result Comment: AMOR RED INR: 2.0 - 3.0 CONDITIONS NOT LISTED BELOW 2.5 - 3.5 FOR PROSTHETIC HEART VALVE REPLACEMENT 2.5 - 3.5 RECURRENT THROMBOSIS Performed By: #### C VDTBH #### [facility] [address] [place] [address] Dr. Laura Chavis PT Coag (PPP) [Time] 10.3 s Normal 9.0-11.6 [facility] Comment on above: Performed By: #### C VDTBH #### [facility] [address] [place] [address] Dr. Laura Chavis PTTon 10-29-2021 aPTT Coag (Bld) [Time] 27.5 s Normal 22.3-36.2 [facility] Comment on above: Performed By: #### P T, PTT #### [facility] [address] [place] [address] Dr. Laura Chavis FEMUR RIGHT 2 Son 10-19-19 22 FEMUR RIGHT 2 S [facility] Department of Radiology [address] [place] [phone] Patient Name: KEILA RICHARDSON : 1970 Sex: F Age: Race: White Pt. Location: Patient Status: O Ordered Date: 10/18/2021 12:35:00 PM Completed Date: 10/18/2021 12:49 PM Requesting Provider: CHARLY FARIAS Attending Provider: CHARLY FARIAS Report Copy To: Signs & Symptoms: S72.91XA Unsp fracture of right femur, init for clos fx I10 History: Edwards Comments: Evaluate Exam: FEMUR RIGHT 2 VWS [...] ORIF Electronically signed: Moncho Beyer. Transcribed by: [email or web address], User Resident: Electronically Signed by: MONCHO BEYER @ 10/18/2021 02:00 PM Normal [facility] Comment on above: Order Comment: Evalu ate HIP LEFT 1 OR 2 VWS WITH PEL VISon 09-27-2021 HIP LEFT 1 OR 2 VWS WITH PELVIS [facility] Department of Radiology [address] [place] [phone] Patient Name: KEILA RICHARDSON : 1970 [...] hip. Electronically signed: Daniel Meza. Transcribed by: [email or web address], User Resident: DANIEL MEZA Electronically Signed by: DANIEL MEZA @ 09/29/2021 02:18 PM I personally read this/these film(s) with this resident Normal [facility] Comment on above: Order Comment: Evalu ate JOINT PAIN INJECTIONon 08-15 JOINT PAIN INJECTION [facility] Department of Radiology [address] [place] [phone] Patient Name: KEILA RICHARDSON : 1970 Sex: F Age: Race: White Pt. Location: 84 Patient Status: O Ordered Date: 08/07/2021 11:55:00 AM Completed Date: 08/15/2021 09:17 AM Requesting Provider: CHARLY FARIAS Attending Provider: CHARLY FARIAS Report Copy To: ANTONIO IMELDADEON Signs & Symptoms: M25.552 Pain in left hip I10 History: Edwards Comments: Please inject 4cc of lidocaine 1% [...] report. Electronically signed: Magy Paz. Transcribed by: [email or web address], User Resident: AIDA OBANDO Electronically Signed by: MAGY PAZ @ 08/15/2021 01:28 PM I personally read this/these film(s) with this resident Normal [facility] Comment on above: Order Comment: Pleas e inject 4cc of lidocaine 1% and 2cc of kenalog 10mg in the left hip , Body Part: Hip , Side: LEFT FEMUR RIGHT 2 [facility] 07-13-19 22 FEMUR RIGHT 2 [facility] Department of Radiology [address] [place] [phone] Patient Name: KEILA RICHARDSON : 1970 [...] Electronically signed: Jose Juan Sandoval. Transcribed by: [email or web address], User Resident: Electronically Signed by: JOSE JUAN SANDOVAL @ 07/13/2021 10:29 AM Normal [facility] Comment on above: Order Comment: Evalu ate FEMUR RIGHT 2 Son 05-23-19 22 FEMUR RIGHT 2 S [facility] Department of Radiology [address] [place] [phone] Patient Name: KEILA RICHARDSON : 1970 [...] report. Electronically signed: Magy Paz. Transcribed by: [email or web address], User Resident: EDMAR BROWN Electronically Signed by: MAGY PAZ @ 05/22/2021 03:10 PM I personally read this/these film(s) with this resident Normal [facility] Comment on above: Order Comment: Evalu ate FEMUR RIGHT 2 Son 04-25-19 22 FEMUR RIGHT 2 S [facility] Department of Radiology [address] [place] [phone] Patient Name: KEILA RICHARDSON : 1970 [...] noted. Electronically signed: German Gamble. Transcribed by: [email or web address], User Resident: Electronically Signed by: GERMAN GAMBLE @ 04/24/2021 12:18 PM Normal [facility] HIP LEFT 1 OR 2 VWS WITH PEL VISon 04-14-2021 HIP LEFT 1 OR 2 VWS WITH PELVIS [facility] Department of Radiology [address] [place] [phone] Patient Name: KEILA RICHARDSON : 1970 Sex: F Age: Race: White Pt. Location: [id number] Patient Status: I Ordered Date: 04/14/2021 7:55:00 [...] limitations. Electronically signed: ALEX PRATT. Transcribed by: [email or web address], User Resident: Electronically Signed by: ALEX PRATT @ 04/14/2021 11:40 AM Normal [facility] Comment on above: Order Comment: Evalu ate BASIC METABOLIC PANELon 03-0 Calcium [Mass/Vol] 8.3 mg/dL Low 8.6-10.3 [facility] Comment on above: Order Comment: No: D o not add to previous draw Performed By: #### 0 0071 #### [facility] [address] [place] [address], [place] Chloride [Moles/Vol] 101 mmol/L Normal 98-107 [facility] Comment on above: Order Comment: No: D o not add to previous draw Performed By: #### 0 0071 #### [facility] [address] [place] [address], [place] CO2 [Moles/Vol] 27 mmol/L Normal 21-31 [facility] Comment on above: Order Comment: No: D o not add to previous draw Performed By: #### 0 0071 #### [facility] [address] [place] [address], [place] Creatinine [Mass/Vol] 0.70 mg/dL Normal 0.60-1.20 [facility] Comment on above: Order Comment: No: D o not add to previous draw Performed By: #### 0 0071 #### [facility] [address] [place] [address], [place] GFR/1.73 sq M.predicted among blacks MDRD (S/P/Bld) [Vol rate/Area] mL/min/{1.73_m2} Normal >60 [facility] Comment on above: Order Comment: No: D o not add to previous draw Performed By: #### 0 0071 #### [facility] [address] [place] [address], [place] GFR/1.73 sq M.predicted among non-blacks MDRD (S/P/Bld) [Vol rate/Area] mL/min/{1.73_m2} Normal >60 [facility] Comment on above: Order Comment: No: D o not add to previous draw Performed By: #### 0 0071 #### [facility] [address] [place] [address], [facility] Glucose [Mass/Vol] 116 mg/dL High 70-100 [facility] Comment on above: Order Comment: No: D o not add to previous draw Performed By: #### 0 0071 #### [facility] [address] [place] [address], [place] Potassium [Moles/Vol] 4.1 mmol/L Normal 3.5-5.1 [facility] Comment on above: Order Comment: No: D o not add to previous draw Performed By: #### 0 0071 #### [facility] [address] [place] [address], [place] Sodium [Moles/Vol] 136 mmol/L Normal 136-145 [facility] Comment on above: Order Comment: No: D o not add to previous draw Performed By: #### 0 0071 #### [facility] [address] [place] [address], [facility] Urea nitrogen [Mass/Vol] 16 mg/dL Normal 7-25 [facility] Comment on above: Order Comment: No: D o not add to previous draw Performed By: #### 0 0071 #### [facility] [address] [place] [address], [facility] CBC COMPLETE BLOOD COUNTon 0 - Erythrocyte distribution width (RBC) [Ratio] 13.1 % Normal 11.5-15.0 [facility] Comment on above: Order Comment: Evalu ate Performed By: #### 5 0608 ####[facility] [facility].[place] [id number], [facility] Hematocrit (Bld) [Volume fraction] 33.2 % Low 36.0-45.0 [facility] Comment on above: Order Comment: Evalu ate Performed By: #### 5 0608 ####[facility] Hemoglobin (Bld) [Mass/Vol] 11.6 g/dL Low 12.0-15.0 [facility] Comment on above: Order Comment: Evalu ate Performed By: #### 5 0608 ####[facility] MCH (RBC) [Entitic mass] 31.5 pg Normal 27.0-33.0 [facility] Comment on above: Order Comment: Evalu ate Performed By: #### 5 0608 ####[facility] MCHC (RBC) [Mass/Vol] 34.9 g/dL Normal 32.0-35.0 [facility] Comment on above: Order Comment: Evalu ate Performed By: #### 5 0608 ####[facility] MCV (RBC) [Entitic vol] 90.2 fL Normal 82.0-98.0 [facility] Comment on above: Order Comment: Evalu ate Performed By: #### 5 0608 ####[facility] Nucleated RBC/100 WBC (Bld) [Ratio] 0 % Normal 0-0 [facility] Comment on above: Order Comment: Evalu ate Performed By: #### 5 0608 ####[facility] PLAT CNT 352 10*3/uL Normal 150-400 [facility] Comment on above: Order Comment: Evalu ate Performed By: #### 5 0608 ####[facility] [place] [address] RBC (Bld) [#/Vol] 3.68 10*6/uL Low 3.80-5.00 [facility] Comment on above: Order Comment: Evalu ate Performed By: #### 5 0608 ####[facility] WBC (Bld) [#/Vol] 11.61 10*3/uL High 4.00-10.60 [facility] Comment on above: Order Comment: Evalu ate Performed By: #### 5 0608 ####[facility] Operative Reporton Operative Report MR#: [id number] I [facility] Pt. Name: Keila Richardson Room #: [id number] Discharge Date: Birthdate: 1970 OPERATIVE REPORT DATE OF SURGERY: 04/10/2021 SURGEON: Charly Farias M.D. 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 PROCEDURE PERFORMED: 1. 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-sided iliac crest bone graft harvest as well as revision fixation [id number] 2. Hardware removal right femur ANESTHESIA: General. [...] place 2 distal interlocking screws using perfect [place] technique in new screw holes both of [...] cortical (more content not included)... Normal [facility] PORTABLE TIBIA FIBULA LEFTon 04-11-2021 PORTABLE TIBIA FIBULA LEFT [facility] Department of Radiology [address] [place] [phone] Patient Name: KEILA RICHARDSON : 1970 Sex: F Age: Race: White Pt. Location: [id number] Patient Status: I Ordered Date: 04/11/2021 7:45:00 [...] report. Electronically signed: Gordon Dumont. Transcribed by: [email or web address], User Resident: KARLA REECE Electronically Signed by: GORDON DUMONT @ 04/12/2021 02:58 PM I personally read this/these film(s) with this resident Normal [facility] Comment on above: Order Comment: Evalu ate *ANAEROBIC CULTUREon 022 *ANAEROBIC CULTURE Clinical Report: (D) Specimen/Source: TISSUE/INTRAOP SPEC Collected: 04/10/2021 13:35 Status: Final Last Updated: 04/15/2021 08:17 (1) 1. Right femur non union site CULT RES (Final) No Anaerobes Isolated 5 Days Normal [facility] Comment on above: Order Comment: Evalu ate Performed By: #### 3 0312 ####[facility] *TISSUE CULTUREon 04-10-2021 *TISSUE CULTURE Clinical Report: (D) Specimen/Source: TISSUE/INTRAOP SPEC Collected: 04/10/2021 13:35 Status: Final Last Updated: 04/15/2021 08:00 (1) 1. Right femur non union site GRAM (Final) No Polys Seen No Bacteria Seen CULT RES (Final) No Growth Day 5 Normal [facility] Comment on above: Order Comment: 1. Ri ght femur non union site Performed By: #### 3 0338 #### [facility] [address] BASIC METABOLIC PANELon Calcium [Mass/Vol] 8.6 mg/dL Normal 8.6-10.3 [facility] Comment on above: Order Comment: Evalu ate Performed By: #### 0 0071 ####[facility] [place] [address], [place] Chloride [Moles/Vol] 103 mmol/L Normal 98-107 [facility] Comment on above: Order Comment: Evalu ate Performed By: #### 0 0071 ####[facility] [place] [address], [place] CO2 [Moles/Vol] 25 mmol/L Normal 21-31 [facility] Comment on above: Order Comment: Evalu ate Performed By: #### 0 0071 ####[facility] [place] [address], [place] Creatinine [Mass/Vol] 0.68 mg/dL Normal 0.60-1.20 [facility] Comment on above: Order Comment: Evalu ate Performed By: #### 0 0071 ####[facility] [place] [address], [place] GFR/1.73 sq M.predicted among blacks MDRD (S/P/Bld) [Vol rate/Area] mL/min/{1.73_m2} Normal >60 [facility] Comment on above: Order Comment: Evalu ate Performed By: #### 0 0071 ####[facility] [place] [address], [place] GFR/1.73 sq M.predicted among non-blacks MDRD (S/P/Bld) [Vol rate/Area] mL/min/{1.73_m2} Normal >60 [facility] Comment on above: Order Comment: Evalu ate Performed By: #### 0 0071 ####[facility] [place] [address], [place] Glucose [Mass/Vol] 154 mg/dL High 70-100 [facility] Comment on above: Order Comment: Evalu ate Performed By: #### 0 0071 ####[facility] Potassium [Moles/Vol] 4.0 mmol/L Normal 3.5-5.1 [facility] Comment on above: Order Comment: Evalu ate Performed By: #### 0 0071 ####[facility] [place] [address] Sodium [Moles/Vol] 138 mmol/L Normal 136-145 [facility] Comment on above: Order Comment: Evalu ate Performed By: #### 0 0071 ####[place] [address] [address] Urea nitrogen [Mass/Vol] 15 mg/dL Normal 7-25 [facility] Comment on above: Order Comment: Evalu ate Performed By: #### 0 0071 ####[address] FEMUR RIGHT 2 [facility] 04-11-19 22 FEMUR RIGHT 2 S [facility] Department of Radiology [address] [place] [phone] Patient Name: KEILA RICHARDSON : 1970 Sex: F Age: Race: White Pt. Location: OUTP Patient Status: I Ordered Date: 04/10/2021 12:30:00 PM Completed Date: 04/10/2021 07:04 PM Requesting Provider: CHARLY FARIAS Attending Provider: CHARLY FARIAS Report Copy To: Signs & Symptoms: RT DISTAL FEMUR REVISION ORIF History: Comments: T DISTAL FEMUR REVISION ORIF Exam: FEMUR RIGHT 2 [facility] FEMUR RIGHT 2 S 04/10/2021 7:04 PM [...] Electronically signed: Luis Miguel Sheikh. Transcribed by: [email or web address], User Resident: Electronically Signed by: LUIS MIGUEL SHEIKH @ 04/10/2021 08:10 PM Normal [facility] Comment on above: Order Comment: T DIS GUIDO FEMUR REVISION ORIF POC GLUCOSE LABon 04-10-2021 Glucose [Mass/Vol] 92 mg/dL Normal 70-100 [facility] Comment on above: Performed By: #### 8 5499 #### [address] PORTABLE FEMUR RIGHT 2 [facility] 04-10-2021 PORTABLE FEMUR RIGHT 2 [facility] Department of Radiology [address] [place] [phone] Patient Name: KEILA RICHARDSON : 1970 [...] Electronically signed: Luis Miguel Sheikh. Transcribed by: [email or web address], User Resident: Electronically Signed by: LUIS MIGUEL SHEIKH @ 04/10/2021 08:04 PM Normal [facility] Comment on above: Order Comment: Evalu ate TYPE AND SCREENon 04-10-2021 ABO INTERPRETATION O Normal [facility] Comment on above: Performed By: #### 6 2586 ####[facility] [address], [facility] RH INTERPRETATION Positive Normal [facility] Comment on above: Performed By: #### 6 5386 ####[facility] [address], [facility] C-Reactive Proteinon 022 CRP IV 1.3 mg/dl Normal <5.0 [facility] Document Advisor Comment on above: Performed By: #### C BCAD, LIPD, CMP, VITD, CRP, ESR #### [facility] [address] [place], [place] [id number] Complete Blood Count with Au to Diffon 03-26-2021 Basophils (Bld) [#/Vol] 0.02 10*3/uL Normal 0.00-0.20 [facility] Document Advisor Comment on above: Performed By: #### C BCAD, LIPD, CMP, VITD, CRP, ESR #### [facility] [address], [place] [id number] Basophils/100 WBC (Bld) 0.3 % Normal [facility] Document Advisor Comment on above: Performed By: #### C BCAD, LIPD, CMP, VITD, CRP, ESR #### [facility] [address] [place], [place] [id number] Eosinophils (Bld) [#/Vol] 0.26 10*3/uL Normal 0.02-0.50 [facility] Document Advisor Comment on above: Performed By: #### C BCAD, LIPD, CMP, VITD, CRP, ESR #### [facility] [address] [place], [place] [id number] Eosinophils/100 WBC (Bld) 4.0 % Normal [facility] Document Advisor Comment on above: Performed By: #### C BCAD, LIPD, CMP, VITD, CRP, ESR #### [facility] [address] [place], [place] [id number] Erythrocyte distribution width (RBC) [Ratio] 13.2 % Normal 11.0-15.0 [facility] Document Advisor Comment on above: Performed By: #### C BCAD, LIPD, CMP, VITD, CRP, ESR #### [facility] [address] [place], [place] [id number] Hematocrit (Bld) [Volume fraction] 40.1 % Normal 35.0-47.0 [facility] Document Advisor Comment on above: Performed By: #### C BCAD, LIPD, CMP, VITD, CRP, ESR #### [facility] [address] [place], [place] [id number] Hemoglobin (Bld) [Mass/Vol] 13.0 g/dL Normal 11.6-15.5 [facility] Specialist Comment on above: Performed By: #### C BCAD, LIPD, CMP, VITD, CRP, ESR #### [facility] [address] [place], [place] [id number] Lymphocytes (Bld) [#/Vol] 2.6 10*3/uL Normal 0.9-3.9 [facility] Specialist Comment on above: Performed By: #### C BCAD, LIPD, CMP, VITD, CRP, ESR #### [facility] [address] [place], [place] [id number] Lymphocytes/100 WBC (Bld) 39.4 % Normal [facility] Specialist Comment on above: Performed By: #### C BCAD, LIPD, CMP, VITD, CRP, ESR #### [facility] [address] [place], [place] [id number] MCH (RBC) [Entitic mass] 29.9 pg Normal 27.0-33.0 [facility] Specialist Comment on above: Performed By: #### C BCAD, LIPD, CMP, VITD, CRP, ESR #### [facility] [address] [place], [place] [id number] MCHC (RBC) [Mass/Vol] 32.4 g/dL Normal 32.0-36.0 [facility] Comment on above: Performed By: #### C BCAD, LIPD, CMP, VITD, CRP, ESR #### [facility] [address] [place], [place] [id number] MCV (RBC) [Entitic vol] 92 fL Normal 80-100 [facility] Specialist Comment on above: Performed By: #### C BCAD, LIPD, CMP, VITD, CRP, ESR #### [facility] [address] [place], [place] [id number] Monocytes (Bld) [#/Vol] 0.5 10*3/uL Normal 0.2-0.9 [place] Document Advisor Comment on above: Performed By: #### C BCAD, LIPD, CMP, VITD, CRP, ESR #### [facility] [address] [place], [place] [id number] Monocytes/100 WBC (Bld) 7.7 % Normal [facility] Specialist Comment on above: Performed By: #### C BCAD, LIPD, CMP, VITD, CRP, ESR #### [facility] [address] [place], [place] [id number] Neutrophils (Bld) [#/Vol] 3.1 10*3/uL Normal 1.5-7.8 [facility] Specialist Comment on above: Performed By: #### C BCAD, LIPD, CMP, VITD, CRP, ESR #### [facility] [address] [place], [place] [id number] Neutrophils/100 WBC (Bld) 48.3 % Normal [facility] Specialist Comment on above: Performed By: #### C BCAD, LIPD, CMP, VITD, CRP, ESR #### [facility] [address] [place], [place] [id number] Platelet mean volume (Bld) [Entitic vol] 9.30 fL Normal 7.50-12.50 [facility] Specialist Comment on above: Performed By: #### C BCAD, LIPD, CMP, VITD, CRP, ESR #### [facility] [address] [place], [place] [id number] Platelets (Bld) [#/Vol] 354 10*3/uL Normal 140-400 [facility] Specialist Comment on above: Performed By: #### C BCAD, LIPD, CMP, VITD, CRP, ESR #### [facility] [address] [place], [place] [id number] RBC (Bld) [#/Vol] 4.35 10*6/uL Normal 3.90-5.20 [facility] Specialist Comment on above: Performed By: #### C BCAD, LIPD, CMP, VITD, CRP, ESR #### [facility] [address] [place], [place] [id number] RDW-SD 44.6 fL Normal 37.0-50.0 [place] Document Advisor Comment on above: Performed By: #### C BCAD, LIPD, CMP, VITD, CRP, ESR #### [facility] [address] [place], [place] [id number] WBC (Bld) [#/Vol] 6.5 10*3/uL Normal 3.8-11.0 iGlberto hutchinson [place] Document Advisor Comment on above: Performed By: #### C BCAD, LIPD, CMP, VITD, CRP, ESR #### [facility] [address] [place], [place] [id number] Comprehensive Metabolic Pane tripp 03-26-2021 Albumin [Mass/Vol] 4.1 g/dL Normal 3.6-5.1 Gilberto hutchinson [place] Document Advisor Comment on above: Performed By: #### C BCAD, LIPD, CMP, VITD, CRP, ESR #### [facility] [address] [place], [place] [id number] Albumin/Globulin [Mass ratio] 1.6 {ratio} Normal 1.0-2.5 [facility] Document Advisor Comment on above: Performed By: #### C BCAD, LIPD, CMP, VITD, CRP, ESR #### [facility] [address] [place], [place] [id number] ALP [Catalytic activity/Vol] 96 U/L Normal 35-119 [facility] Specialist Comment on above: Performed By: #### C BCAD, LIPD, CMP, VITD, CRP, ESR #### [facility] [address] [place], [place] [id number] ALT [Catalytic activity/Vol] 22 U/L Normal 6-33 [facility] Document Advisor Comment on above: Result Comment: 01/09 Female reference range changed. Performed By: #### C BCAD, LIPD, CMP, VITD, CRP, ESR #### [facility] [address] [place], [place] [id number] Anion gap [Moles/Vol] 15 mmol/L Normal 12-20 [facility] Specialist Comment on above: Result Comment: Effe ctive 02/14/2019 reference range changed. Performed By: #### C BCAD, LIPD, CMP, VITD, CRP, ESR #### [facility] [address] [place], [place] [id number] AST [Catalytic activity/Vol] 22 U/L Normal 9-34 [facility] Comment on above: Performed By: #### C BCAD, LIPD, CMP, VITD, CRP, ESR #### [facility] [address] [place], [place] [id number] BUN/CREA 25 Ratio High 6-22 [facility] Comment on above: Performed By: #### C BCAD, LIPD, CMP, VITD, CRP, ESR #### [facility] [address] [place], [place] [id number] Calcium [Mass/Vol] 10.1 mg/dL Normal 8.6-10.2 [facility] Comment on above: Performed By: #### C BCAD, LIPD, CMP, VITD, CRP, ESR #### [facility] [address] [place], [place] [id number] Chloride [Moles/Vol] 104 mmol/L Normal 98-107 [facility] Comment on above: Performed By: #### C BCAD, LIPD, CMP, VITD, CRP, ESR #### [facility] [address] [place], [place] [id number] CO2 [Moles/Vol] 27 mmol/L Normal 20-31 [facility] Comment on above: Performed By: #### C BCAD, LIPD, CMP, VITD, CRP, ESR #### [facility] [address] [place], [place] [id number] Creatinine [Mass/Vol] 0.7 mg/dL Normal 0.6-1.4 [facility] Comment on above: Performed By: #### C BCAD, LIPD, CMP, VITD, CRP, ESR #### [facility] [address] [place], [place] [id number] eGFRAA 104 mL/min/1.73m2 Normal >60 [facility] Comment on above: Performed By: #### C BCAD, LIPD, CMP, VITD, CRP, ESR #### [facility] [address] [place], [place] [id number] eGFRNAA 86 mL/min/1.73m2 Normal >60 [place] Document Advisor Comment on above: Performed By: #### C BCAD, LIPD, CMP, VITD, CRP, ESR #### [facility] [address] [place], [place] [id number] Globulin (S) [Mass/Vol] 2.6 g/dL Normal 1.9-3.7 [facility] Document Advisor Comment on above: Performed By: #### C BCAD, LIPD, CMP, VITD, CRP, ESR #### [facility] [address] [place], [place] [id number] Glucose [Mass/Vol] 90 mg/dL Normal 65-99 [facility] Document Advisor Comment on above: Result Comment: For FASTING Glucose --- ADA reference ranges: Normal 65-99 mg/dl Prediabetes 100-125 Diabetes >/= 126 Performed By: #### C BCAD, LIPD, CMP, VITD, CRP, ESR #### [facility] [address] [place], [place] [id number] Potassium [Moles/Vol] 4.7 mmol/L Normal 3.5-5.5 [facility] Comment on above: Performed By: #### C BCAD, LIPD, CMP, VITD, CRP, ESR #### [facility] [address] [place], [place] [id number] Protein [Mass/Vol] 6.7 g/dL Normal 6.1-8.1 [facility] Document Advisor Comment on above: Performed By: #### C BCAD, LIPD, CMP, VITD, CRP, ESR #### [facility] [address] [place], [place] [id number] Sodium [Moles/Vol] 142 mmol/L Normal 135-146 [facility] Document Advisor Comment on above: Performed By: #### C BCAD, LIPD, CMP, VITD, CRP, ESR #### [facility] [address] [place], [place] [id number] TBIL <0.3 Normal [facility] Document Advisor Comment on above: Performed By: #### C BCAD, LIPD, CMP, VITD, CRP, ESR #### [facility] [address] [place], [place] [id number] Urea nitrogen [Mass/Vol] 18 mg/dL Normal 7-25 [facility] Document Advisor Comment on above: Performed By: #### C BCAD, LIPD, CMP, VITD, CRP, ESR #### [facility] [address] [place], [place] [id number] Lipid Panelon 03-26-2021 Cholesterol [Mass/Vol] 217 mg/dL High 125-200 [facility] Foundation[facility] Ad[facility] Comment on above: Result Comment: Low risk < 200mg/dL Borderline risk 201-239 mg/dl High risk > or equal to 240 Performed By: #### C BCAD, LIPD, CMP, VITD, CRP, ESR #### [facility] [address] [place], [place] [id number] Cholesterol in HDL [Mass/Vol] 57 mg/dL Normal >40 [facility] Document Advisor Comment on above: Result Comment: High Cardiovascular Risk HDL <40 mg/dL Low Cardiovascular Risk HDL > or equal to 60 mg/dl Performed By: #### C BCAD, LIPD, CMP, VITD, CRP, ESR #### [facility] [address] [place], [place] [id number] Cholesterol in LDL [Mass/Vol] 134 mg/dL Normal [facility] Specialist Comment on above: Result Comment: LDL ATP III CLASSIFICATION LDL less than 100 mg/dl Optimal LDL 100-129 mg/dl Near or above optimal LDL 130-159 Borderline high LDL 160-189 High LDL greater than 189 mg/dl Very High Performed By: #### C BCAD, LIPD, CMP, VITD, CRP, ESR #### [facility] [address] [place], [place] [id number] Cholesterol in VLDL [Mass/Vol] 26 mg/dL Normal [facility] Specialist Comment on above: Performed By: #### C BCAD, LIPD, CMP, VITD, CRP, ESR #### [facility] [address] [place], [place] [id number] Cholesterol.total/Chol esterol in HDL [Mass ratio] 4 {ratio} Normal [facility] Specialist Comment on above: Performed By: #### C BCAD, LIPD, CMP, VITD, CRP, ESR #### [facility] [address] [place], [place] [id number] Triglyceride [Mass/Vol] 128 mg/dL Normal 30-150 [facility] Document Advisor Comment on above: Result Comment: TRIG ATPIII CLASSIFICATIONS TRIG less than 150 mg/dl Normal TRIG 150-199 mg/dl Borderline High TRIG 200-500 mg/dl High TRIG greather than 500 mg/dl Very High Performed By: #### C BCAD, LIPD, CMP, VITD, CRP, ESR #### [facility] [address] [place], [place] [id number] RBC Sedimentation Rateon ESR (Bld) [Velocity] 44.00 mm/h High 0.00-20.00 [facility] Comment on above: Performed By: #### C BCAD, LIPD, CMP, VITD, CRP, ESR #### [facility] [address] [place], [place] [id number] Vitamin D 25-OHon 03-26-2021 VIT D 25 OH 56 ng/ml Normal >29 [facility] Specialist Comment on above: Result Comment: Cindy min D Status Deficiency <20 ng/mL Insufficiency 20-29 ng/mL Optimal 30-100 ng/mL Possible Toxicity >=150 ng/mL Performed By: #### C BCAD, LIPD, CMP, VITD, CRP, ESR #### [facility] [address] [place], [place] [id number] FEMUR RIGHT 2 VWSon 03-22-19 22 FEMUR RIGHT 2 S [facility] Department of Radiology [address] [place] [id number] Patient Name: KEILA RICHARDSON : 1970 [...] FEMUR RIGHT 2 S FEMUR RIGHT 2 [facility] CLINICAL INFORMATION: ortho follow up. right femur [...] osteopenia. Electronically signed: German Gamble. Transcribed by: [email or web address], User Resident: Electronically Signed by: GERMAN GAMBLE @ 03/22/2021 03:08 PM Normal [facility] Comment on above: Order Comment: Evalu ate FEMUR RIGHT 2 [facility] 01-19-20 21 FEMUR RIGHT 2 S [facility] Department of Radiology [address] [place] [phone] Patient Name: KEILA RICHARDSON : 1970 [...] ORIF Electronically signed: Moncho Beyer. Transcribed by: [email or web address], User Resident: Electronically Signed by: MONCHO BEYER @ 01/20/2021 05:57 PM Normal [facility] Comment on above: Order Comment: Evalu ate XR femur RT 2V*on 11-16-2020 XR femur RT 2V* [facility] [employer] Other XR femur RT 2V* [facility] [employer] Other XR femur RT 2V* [address] [place] [address] [employer] Other XR femur RT 2V* [place] [address] N [facility] [employer] Other XR femur RT 2V* XRay Report [facility] [employer] Other XR femur RT 2V* Signed [place] [employer] Other XR femur RT 2V* Patient: Sanjana Richardson MR#: [id number] [facility] [employer] Other XR femur RT 2V* 09 [employer] Other XR femur RT 2V* : 1970 Acct:[id number] [employer] Other XR femur RT 2V* Age/Sex: 50 / F ADM Date: 11/16/20 [employer] Other XR femur RT 2V* Loc: [facility] Room: Type : REG CLI [employer] Other XR femur RT 2V* Attending Dr: Ewelina Arellano MD [employer] Other XR femur RT 2V* Ordering Provider: Shaina Arellano MD [employer] Other XR femur RT 2V* Date of Service: 11/16/20 [employer] Other XR femur RT 2V* XR/XR femur RT 2V*: Other closed fracture of distal end of right femur [employer] Other XR femur RT 2V* with [facility] [employer] Other XR femur RT 2V* Copies to: Shaina Arellano MD [employer] Other XR femur RT 2V* Right femur 11/16/2020. [employer] Other XR femur RT 2V* CLINICAL DATA: Follo w-up right femur fracture repair. [employer] Other XR femur RT 2V* FINDINGS: 2 views of the right femur were obtained and are compared with a prior study 10/05/2020. [employer] Other XR femur RT 2V* There is redemonstra tion of postsurgical changes related to internal fixation of a fracture of the [employer] Other XR femur RT 2V* distal shaft of the femur with a hip screw and long intramedullary lópez as well as cerclage wires. [employer] Other XR femur RT 2V* Both fixation screws at the distal end of the intramedullary lópez are now broken. Overall bony [employer] Other XR femur RT 2V* alignment, however, appears relatively stable. The patient is status post total knee arthroplasty. [employer] Other XR femur RT 2V* The intramedullary r od has moved distally and is now closer to the femoral implant than before. [employer] Other XR femur RT 2V* X R/XR femur RT 2V* [employer] Other XR femur RT 2V* IMPRESSION: Findings as described [employer] Other XR femur RT 2V* Impression dictated by: Kashif Villalobos Jr., M.D.11/16/2020 2:43 PM [employer] Other XR femur RT 2V* Dictation Location: [place] [address] [employer] Other XR femur RT 2V* Transcribed By: [facility] 11/16/20 [facility] [employer] Other XR femur RT 2V* Dictated By: Kashif Villalobos Jr, MD 11/16/20 [facility] [employer] Other XR femur RT 2V* Signed By: [facility] [employer] Other XR femur RT 2V* 11/16/20 [facility] [employer] Other Vital Signs Date Time Vital Sign Value Performing Clinician Facility 10-08-2023 [id number] Body height 180.34 cm MD Maribell Alvarez Work Phone: [facility] 10-08-2023 10:04-0400 Body mass index (BMI) [Ratio] 38.9 kg/m2 MD Maribell Alvarez Work Phone: [facility] 10-08-2023 10:04-0400 Body weight 126.55 kg MD Maribell Alvarez Work Phone: [facility] 08-27-2023 02:46-0400 Body temperature 98 [degF] MD Maribell Alvarez Work Phone: [facility] 08-27-2023 02:46-0400 Diastolic blood pressure 70 mm[Hg] MD Maribell Alvarez Work Phone: [facility] 08-27-2023 02:46-0400 Heart rate 69 /min MD Maribell Alvarez Work Phone: [facility] 08-27-2023 02:46-0400 Respiratory rate 17 /min MD Maribell Alvarez Work Phone: [facility] 08-27-2023 02:46-0400 SaO2% (BldA) [Mass fraction] 96 % MD Maribell Alvarez Work Phone: [facility] 08-27-2023 02:46-0400 Systolic blood pressure 122 mm[Hg] MD Maribell Alvarez Work Phone: [facility] 08-26-2023 21:10-0400 Body height 180.34 cm MD Maribell Alvarez Work Phone: [facility] 08-26-2023 21:10-0400 Body weight 125.8 kg MD Maribell Alvarez Work Phone: [facility] 11-16-2020 12:15-0400 Body height 180.34 cm Shaina Arellano Other [employer] Other 11-16-2020 12:15-0400 Body mass index (BMI) [Ratio] 27.05 kg/m2 Shaina Arellano Other [employer] Other 11-16-2020 12:15-0400 Body weight 88 kg Shaina Arellano Other [employer] Other Encounters Encounter Date Encounter Type Care Provider Facility Start: 10-26-2023 End: 10-26-2023 ambulatory DAJA BECKY Not Available Start: 10-08-2023 End: 10-08-2023 ambulatory MD Maribell Alvarez Work Phone: [facility] Work Phone: Start: 10-08-2023 End: 10-08-2023 Patient encounter procedure MD Maribell Alvarez Work Phone: [facility] Work Phone: Start: 10-06-2023 End: 10-06-2023 Patient encounter procedure MD Maribell Alvarez Work Phone: [facility] [address] Work Phone: Start: 10-06-2023 End: 10-06-2023 ambulatory MD Maribell Alvarez Work Phone: [facility] Work Phone: Start: 09-28-2023 End: 09-28-2023 ambulatory DAJA BECKY Not Available Start: 09-08-2023 End: 09-08-2023 ambulatory MD Maribell Alvarez Work Phone: [facility] Work Phone: Start: 09-08-2023 End: 09-08-2023 Patient encounter procedure MD Maribell Alvarez Work Phone: [facility] Work Phone: Start: 09-08-2023 End: 09-08-2023 Patient encounter procedure MD Marbiell Alvarez Work Phone: [facility] [place] [facility] Start: 09-08-2023 End: 09-08-2023 ambulatory MD Maribell Alvarez Work Phone: [facility] Work Phone: Start: 08-31-2023 End: 08-31-2023 ambulatory MD Maribell Alvarez Work Phone: [facility] Work Phone: Start: 08-31-2023 End: 08-31-2023 Patient encounter procedure MD Maribell Alvarez Work Phone: [facility] Work Phone: Start: 08-26-2023 End: 08-27-2023 Emergency department patient visit MD Maribell Alvarez Work Phone: [facility] Work Phone: Start: 08-11-2023 End: 08-11-2023 ambulatory MARIBELL ALVAREZ Not Available Start: 08-07-2023 ambulatory Lois Che Facility:[facility] Start: 03-14-2022 End: 03-15-2022 ambulatory [facility] Start: 01-28-2022 End: 01-29-[address] MARIBELL ALVAREZ Facility:[facility] Start: 01-23-2022 End: 01-24-2022 ambulatory ALEXANDRA OROPEZA Facility:[facility] Start: 01-14-2022 ambulatory MONET MULLINS [facility] Start: 01-10-2022 End: 01-11-2022 [facility] Start: 12-13-2021 End: 12-14-2021 ambulatory MONET MULLINS [facility] Start: 12-13-2021 End: 12-13-2021 ambulatory MONET MULLINS [facility] Start: 12-11-2021 End: 12-12-2021 ambulatory [facility] Start: 12-06-2021 End: 12-07-2021 Emergency department patient visit ARIANNA ANDERSON [facility] Start: 11-28-2021 Evaluation and management of inpatient [facility] Start: 11-28-2021 Evaluation and management of inpatient [facility] Start: 11-27-2021 Evaluation and management of inpatient [facility] Start: 11-27-2021 Evaluation and management of inpatient [facility] Start: 11-27-2021 Encounter for preprocedural laboratory examination DR DOCTOR ROB [facility] Start: 11-27-2021 End: 11-29-2021 Evaluation and management of inpatient [facility] Start: 11-25-2021 End: 11-26-[address] [...] 03-27-2021 End: 03-27-2021 ambulatory Shaina Arellano Other [employer] Other Start: 03-27-2021 Telephone encounter Shaina Calvey [facility] Start: 03-26-2021 End: 03-27-[address] MO PELLETIER Facility:[facility] Start: 02-26-2021 End: 02-26-2021 ambulatory Shaina Calvey Other [employer] Other Start: 02-26-2021 Telephone encounter Shaina Calvey [facility] Start: 12-19-2020 End: 12-19-2020 ambulatory Shaina Calvey Other [employer] Other Start: 12-19-2020 Telephone encounter Shaina Calvey [facility] Start: 12-17-2020 End: 12-17-2020 ambulatory Shaina Calvey Other [employer] Other Start: 12-17-2020 Telephone encounter Shaina Woodward [facility] Start: 11-30-2020 Office outpatient vi sit 25 minutes Shaina Arellano [facility] Start: 11-28-2020 Telephone encounter Shaina Arellano Trace [facility] Start: 11-27-2020 Telephone encounter Shaina Woodward [facility] Start: 11-22-2020 Telephone encounter Shaina Woodward [facility] Start: 11-16-2020 Office outpatient vi sit [...] on above: Performed By: #### 6 [id number] ####[place] [address] [address] Plan of Treatment Date Care Activity Detail Author Start: 09-08-2023 Plain X-ray of right shoulder XR shoulder RT min 2V* [facility] Start: 09-08-2023 XR Shoulder - right Views [facility] Start: 08-26-2023 CT cervical spine without contrast CT cervical spine wo con [facility] Start: 08-26-2023 CT Cervical spine WO contrast [facility] Start: 08-26-2023 CT Chest WO contrast Fi [facility] Start: 08-26-2023 CT of chest without contrast CT chest wo con [facility] Start: 08-26-2023 Pelvis X-ray XR pelvis 1-2V [facility] Start: 08-26-2023 Plain X-ray of right femur XR femur RT 2V* [facility] Start: 08-26-2023 Plain X-ray of right humerus XR humerus RT* [facility] Start: 08-26-2023 Plain X-ray of right shoulder XR shoulder RT min 2V* [facility] Start: 08-26-2023 XR Femur - right 2 Views [facility] Start: 08-26-2023 XR Humerus - right Views [facility] Start: 08-26-2023 XR Pelvis 1 or 2 Views [facility] Start: 08-26-2023 XR Shoulder - right Views [facility] Start: 04-17-2022 ambulatory Ambulatory Facility:H 1 MR Shoulder - right WO contrast [facility] Patient Education Rotator cuff i njury Rib Fracture or Bruised Rib ED Shoulder Pain ED Opioids for Short-Term Treatment of Pain ED [facility] Work Phone: Patient referral [facility] Work Phone: Immunizations Immunization Date Immunization Notes Care Provider Lynn mackey 06-06-2020 COVID-19 Jeromy Castorena (Pfizer) MD Maribell Alvarez Work Phone: [facility] 05-16-2020 COVID-19 Jeromy Castorena (Pfizer) MD Maribell Alvarez Work Phone: [facility] Payers Date Payer Category Payer Self-pay [id number] 2021 Unknown [id number] 1970 Unknown [id number] 2.16.84 [id number] 1970 Unknown [id number] 2.16.84 0.1.579355.3.579.2.593 1971 Unknown [id number] 2.16.84 0.1.512002.3.579.2.593 1971 Unknown [id number] 2.16.84 0.1.066230.3.579.2.593 1971 Unknown [id number] 2.16.84 0.1.981269.3.579.2.593 1971 Unknown [id number] .16.84 0.1.742291.3.579.2.593 1971 Unknown [id number] .16.84 0.1.304463.3.579.2.593 1971 Unknown [id number] .16.84 0.1.753050.3.579.2.593 1971 Unknown [id number] .16.84 0.1.459205.3.579.2.593 1971 Unknown [id number] .16.84 0.1.635587.3.579.2.593 1971 Unknown [id number] .16.84 0.1.245596.3.579.2.1259 1971 Unknown [id number] 2.16.84 0.1.602092.3.579.2.1259 1971 Unknown [id number] .16.84 0.1.981170.3.579.2.1259 Unknown [id number] 2.[address] [facility] [id number] Unknown [id number] 2.16.8 40.1.660109.3.579.2.531 Unknown [id number] 2.16.8 40.1.308224.3.579.2.531 Unknown [id number] 2.16.8 40.1.783005.3.579.2.531 Social History Date Type Detail Facility Sex Assigned At [facility] [employer] Other Start: 08-26-2023 [facility] Start: 1970 Sex Assigned At Female [facility] Medical Equipment Procedure Code Equipment Code Equipment Origin al Text Equipment Identifier Dates Orthopaedic bone screw, non-bioabsorbable, non-sterile [id number] FDA Start: 07-28-2020 Orthopaedic bone screw, non-bioabsorbable, non-sterile ()[id number] FDA Start: 07-28-2020 Femur nail, sterile ()[id number] [id number] FDA Start: 07-28-2020 Orthopaedic bone screw, non-bioabsorbable, sterile ()[id number] [id number] FDA Start: 07-28-2020 Internal orthopa edic fixation system, cerclage wire/cable, sterile ()[id number] [id number] FDA Start: 07-28-2020 Internal orthopa edic fixation system, cerclage wire/cable, sterile ()[id number] [id number] FDA Start: 07-28-2020 Clinical Notes 11-16-2020 to [...] ANGIOGRAM W AND/OR WO IV CONTRAST 11/28/[address] [facility] [address] IMAGING FEMUR FRACTURE SURGERY Left [...] Randolph MD Orthopaedic Surgery, Resident Ortho Pager [phone] 03/14/22 1:35 PM I am available via [employer] chat 6a-6p. May contact the on-call resident [...] from me. Dr. Leo Ortega MD MRCSEd Contract Associate Manager orthopedic surgery-[facility]. [facility] 01-29-2022 Note PROCEDURE: XR FOOT R [...] authenticated by: PATTI THOMPSON Date: 2022-01-29 17:23 [facility] 01-23-2022 Note CONSULTATION CONSULTATION DATE: 01/23/2022 HISTORY [...] She does follow up with Orthopedics in [place]. Back in June of 2021, she did [...] to medically maintain her narcotics. Refill for [place] 5/325 two pills twice a day for pain. We will maintain baclofen 10 mg q.h.s. We will follow up with the patient in three months' time unless otherwise indicated. Patient agrees with this plan. [facility] 01-14-2022 Note Subjective Patient ID: Keila Richardson is a 51 y.o. female who presents for Follow-up. HPI: Patient is a 51-year-old female who was origianlly referred to the outpatient rheumatology clinic by Dr. Antonio WONG with [facility] in [facility]. Reason for referral will ask arthritis at [...] SI joints, abraham views were ordered Called [phone] on 01/14/22 at 1051 Verified patient name and date of . Verified patient was in a safe location and able to speak freely. Verified patient was in the state of [place] at the time of our telephone conversation. [...] time of visit. (more content not included)... [facility] 01-10-2022 Note Orthopedic Surgery Subjective Chief [...] ANGIOGRAM W AND/OR WO IV CONTRAST 11/28/[address] [facility] [address] IMAGING FEMUR FRACTURE SURGERY Left [...] resolve. Alek Neumann MD PGY-3 Orthopedic Surgery [facility] By using the attestations below, the [...] be an additional personal documentation from me. [facility] 12-13-2021 Note Keila Richardson is a 51 y.o. female who is being seen in the outpatient rheumatology clinic today for the chief concerns of abnormal labs, early onset OA, PCP concern for inflammatory arthritis. HPI: Patient is a 51-year-old female referred to the outpatient rheumatology clinic by Dr. Antonio WONG with [facility] in [facility]. Reason for referral will ask arthritis at [...] ordered laboratory studies 10/2021: HLA-B27 positive Normal/negative: RANYD, RF, CCP Personally reviewed the EMR chart. [...] capsule 1 tablet, oral, Every morning HYDROcodone-acetaminophen (Trenton) 5-325 mg tablet 2 tablets, oral, 2 times daily Flonase, generic Past Surgical History: Procedure Laterality Date CT CHEST ANGIOGRAM W AND/OR WO IV CONTRAST 11/28/2021 CT CHEST ANGIOGRAM W AND/OR WO IV CONTRAST 11/28/[address] [facility] [address] IMAGING FEMUR FRACTURE SURGERY Left [...] file Social hi (more content not included)... [facility] 12-11-2021 Note Subjective Keila Richardson is 51 y.o. and is now 2 weeks post left total hip arthroplasty. Pain is controlled with current analgesics. Medications being used: ibuprofen (OTC) and narcotic analgesics including hydrocodone/acetaminophen (Lorcet, Lortab, Trenton, Vicodin). The patient denies fever, wound drainage, [...] her Motrin as (more content not included)... [facility] 11-29-2021 Note Physical Therapy Physical Therapy [...] 6 Clicks T (more content not included)... [facility] 11-29-2021 Note Pt ready for dischar and [facility] Lenny Sahu accepted for [facility]. Sent final AVS and discharge order via [employer]. Therapy worked with pt this afternoon and reported she could go home. Discussed with pt who is agreeable. [facility] 11-29-2021 Note Occupational Therapy Occupational Therapy [...] however, pt stated that she has a sleeve sewer and sock aid at home and has [...] assistance Trials/Comments 1: 2 Treatment Comments: Treatment times:[id number] Outcome Assessments AM-PAC 6 Clicks Putting on [...] Eating meals?: None (Independent) Total Score OT [facility]: 16 Assessment/Plan OT Assessment OT Assessment/MARCELO Summary: [...] ambulation, or functional (more content not included)... [facility] 11-29-2021 Note ------ Attestation signed by [...] Ori Chavis MD PGY2, Internal Medicine Resident [facility] 11-29-2021 Note Subjective Doing well this [...] dvt proph. -PT/OT. Alek Neumann Ortho PGY3 [facility] 11-28-2021 Note Physical Therapy Physical Therapy [...] ANGIOGRAM W AND/OR WO IV CONTRAST 11/28/[address] [facility] [address] IMAGING FEMUR FRACTURE SURGERY Left [...] Level of Function Prior Function Level of Ralls: Needs assistance with ADLs, Needs assistance with [...] Contact guard Qual (more content not included)... [facility] 11-28-2021 Note Occupational Therapy Occupational Therapy [...] ANGIOGRAM W AND/OR WO IV CONTRAST 11/28/[address] [facility] [address] IMAGING FEMUR FRACTURE SURGERY Left [...] Level of Function Prior Function Level of Ralls: Independent with ADLs and functional transfers, Independent [...] Reaching for o (more content not included)... [facility] 11-28-2021 Note Pt is POD1 from [...] opposed to SNF if needed. Pt stated [facility] would be fine for [facility]. Sent referral via [employer]. [facility] 11-28-2021 Note ------ Attestation signed by [...] Ori Chavis MD PGY2, Internal Medicine Resident [facility] 11-28-2021 Note Occupational Therapy Pt is unable to be seen for therapy at this time secondary to CT/TE. Pt currently off floor at this time. Will continue to check back as appropriate. Time attempted: 12:26 Mary Lou Zimmer S/OT This session was completed under the supervision of Ibrahima Louise OTR/L [facility] 11-28-2021 Note Subjective Doing well this [...] for dvt proph. -PT/OT. Alek Slade PGY3 [facility] 11-27-2021 Note Patient: Keila guallpa Procedure Summary Date: 11/27/21 Room / Location: [facility] OPERATING ROOM 02 / [facility] Operating Room Anesthesia Start: 1242 Anesthesia [...] Hydration status: acceptable No notable events documented. [facility] 11-27-2021 Note Airway Date/Time: 11/27/2021 12:55 PM Urgency: elective Airway not difficult General Information and Staff Patient location during procedure: OR Anesthesiologist: Zan Celestin MD Resident/SALES AGENT PEST CONTROL SERVICE/CAA: WOODY Lee Performed: other anesthesia staff Indications [...] before airway management; Intubation by medical student [facility] 11-27-2021 Note Patient: Keila guallpa Procedure Information Date/Time: 11/27/21 1130 Procedure: ARTHROPLASTY, HIP, TOTAL (Left: Hip) - Jason REP NOTIFIED TE Location: [facility] OPERATING ROOM 02 / [facility] Operating Room Surgeons: Leo Ortega MD [...] Plan discussed with CAA. Additional Equipment Requests [facility] 10-29-2021 Note CONSULTATION CONSULTATION DATE: 10/29/2021 CHIEF COMPLAINT: Severe left hip pain and left knee pain. HISTORY OF PRESENT ILLNESS: This is a very pleasant, 51-year-old female, who has severe osteoarthritis of the left hip. The patient is scheduled for seeing an orthopedic surgeon on November 06 at [facility] for a total hip replacement. 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 Activities aggravate the patient's pain. The patient reports pain as a 5/10. Currently, she takes Tylenol on a p.r.n. basis, Trenton 5/325 four tablets a day, baclofen 10 [...] total hip replacement on November 06 at [facility]. As such, we will maintain for the patient to return post surgical. [facility] 07-02-2021 Note CONSULTATION CONSULTATION DATE: 07/02/2021 CHIEF COMPLAINT: Left hip pain, left leg pain. HISTORY OF PRESENT ILLNESS: This is a 51-year-old female who is known to the Pain [facility]. The patient recently had a reconstructive surgery of her right leg at [facility]. The patient had bone grafts, removal [...] patient takes Advil on a p.r.n. basis, Trenton 5/325 two tablets b.i.d. and baclofen 10 [...] to follow up with the surgeon at [facility] next week. We requested that the patient bring the x-ray images along with the surgeons report with regards to her left hip. In addition to this, we would look to get authorization of the left trochanteric burse. Should the bursa injection be needed. The patient understands and would like to proceed. CC: Maribell Alvarez M.D. [facility] Signed and Approved by: DR MO PELLETIER . 07/16/2021 11:41:00 [facility] 05-01-2021 Note MR#: [id number] I [facility] Pt. Name: Keila Richardson Admitted: 04/10/2021 [...] Chery MD Date Trans: 05/01/2021 01:43 P/saeo [id number] cc: Maribell Alvarez M.D. [facility] [address] [facility] [address] [facility] 03-26-2021 Note CONSULTATION CHIEF COMPLAINT: Right leg [...] currently doing well. She is maintained on Trenton 5/325 b.i.d. and Baclofen 10 mg which [...] The patient takes Aleve 800 mg b.i.d., Trenton 5/325 b.i.d. two tablets, Baclofen 10 mg [...] tablet p.o., b.i.d. along with maintaining the Trenton 5/325 1-2 tablets on a b.i. d. basis. The patient was educated as to mitigating and decreasing her narcotic levels so that postoperatively she would have a better recovery. Questions and answers were done. The patient will be followed up subsequent to the surgery. [facility] Signed and Approved by: DR MO PELLETIER . 04/02/2021 08:56:00 [facility] 11-30-2020 Evaluation note Encounter Date Diagnosis Assessment [...] Z98.890) Patient will have f/u xray at burns in 4 weeks. 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) Nov, Nicotine abuse (ICD-10 - Z72.0) [employer] Other 10-20-2021 Evaluation note* Encounter Date Diagnosis Assessment Notes Treatment Notes Treatment Clinical Notes Nov, Other type III open fracture of distal end of right femur with routine healing, subsequent encounter (ICD-10 - S72.491F) Nov, Other closed fracture of distal end of right femur with routine healing, subsequent encounter (ICD-10 - S72.491D) [employer] Other 10-08-2021 Evaluation note* Encounter Date Diagnosis [...] Other specified postprocedural states (ICD-10 - Z98.890) [employer] Other Evaluation noteNo InformationNort [employer] Other Evaluation noteNo assessment information available [facility] Work Phone: Evaluation note* Diagnosis Onset Date Resolution Status Contusion of shoulder, right acute Internal derangement of right shoulder acute Pain of right hip acute Rotator cuff tear, right acu te [facility] Work Phone: Evaluation note* Diagnosis Onset Date Resolution Status Contusion of shoulder, right acute Internal derangement of right shoulder acute Pain of right hip acute Rotator cuff tear, right acu te Contusion of shoulder, right acute Internal derangement of right shoulder acute Pain of right hip acute Rotator cuff tear, right acu te [facility] Work Phone: Evaluation note* Diagnosis Onset [...] acute Tear of right supraspinatus tendon acute [facility] Work Phone: History general Narrative - Reported* Type Description Date Medical History Arthritis Surgical History Bilateral total knee replacemen t Surgical History Hysterectomy Hospitalization History See past surgical hx [employer] Other Hiswazf general Narrative - Reported* Type Description Date Medical History Arthritis Surgical History Bilateral total knee replacemen t Surgical History Hysterectomy Surgical History Right Femur Hospitalization History See past surgical hx [employer] Other Hospital Discharge instructions Additional Instructions As we discussed, there is no evidence of any fractures. Given your shoulder pain and inability to lift your shoulder away from your body, I am concerned about a rotator cuff tear. Sling is for comfort. Follow-up with the orthopedics doctor as we discussed. I did prescribe medication for pain. I will also prescribe a gentle laxative.[facility] Work Phone: Summary Purpose Family History [...] right femur with delayed healing, subsequent encounter (P21.873J) Referral Organization [facility] Referring Provider First Name Shaina Referring Provider Last Name Eileen Referring Provider Specialty Hand Surger y Referred Organization [facility] Referred Provider Mo Pelletier Referred Address [address] [place], [place],[address] Referred Provider Specialty Pain Medicin e Referral Priority Routine General Notes Hallie Wilkinson 11:26:16 AM >P2P Shu Glass 11/20/2020 04:43:43 PM > Patient called asking for a referral to [facility] pain management due to her insuranceHallie Wilkinson 11/22/2020 02:13:28 PM >[facility] does not have pain management, I called and spoke with patient and she asked for referral to be sent to [facility] since they take her insurance. Completed referral form for Dr Pelletier and informed patient that she will be contacted directly by his office to schedule appointment. Chief Complaint and Reason for Visit Chief Complaint Fall: rt shoulder in [facility] Chief Complaint Fall: rt shoulder in [facility] RT SHOULDER PAIN WX Reason for Visit Contusion of shoulde r, right Internal derangement of right shoulder Pain of right hip Rotator cuff tear, right Chief Complaint Fall: rt shoulder in [facility] RT SHOULDER PAIN WX M24.811 - Other specific joint derangements of rig 1 WEEK WX Reason for Visit Contusion of shoulde r, right Internal derangement of right shoulder Pain of right hip Rotator cuff tear, right Contusion of shoulder, right Internal derangement of right shoulder Pain of right hip Rotator cuff tear, right Chief Complaint Fall: rt shoulder in [facility] RT SHOULDER PAIN WX M24.811 1 WEEK WX Reason for Visit Contusion of shoulde r, right Internal derangement of right shoulder Pain of right hip Rotator cuff tear, right Contusion of shoulder, right Internal derangement of right shoulder Pain of right hip Rotator cuff tear, right Chief Complaint Fall: rt shoulder in [facility] RT SHOULDER PAIN WX M24.811 1 WEEK WX S40.011A Reason for Visit Contusion of shoulde r, right Internal derangement of right shoulder Pain of right hip Rotator cuff tear, right Contusion of shoulder, right Internal derangement of right shoulder Pain of right hip Rotator cuff tear, right Chief Complaint Fall: rt shoulder in [facility] RT SHOULDER PAIN WX M24.811 1 [...] section and content) DATE CREATED AUTHOR 03/26/2021 [facility] dical Specialist DATE CREATED AUTHOR AUTHOR'S ORGANIZ ATION 10/19/2021 [facility] DATE CREATED AUTHOR AUTHOR'S ORGANIZ ATION 02/05/2022 [facility] DATE CREATED AUTHOR AUTHOR'S ORGANIZ ATION 03/18/2022 [facility] DATE CREATED AUTHOR AUTHOR'S ORGANIZ ATION 06/16/2023 [facility] DATE CREATED AUTHOR AUTHOR'S ORGANIZ ATION 10/08/2023 [facility] DATE CREATED AUTHOR AUTHOR'S ORGANIZ ATION 10/27/2023 [facility] dical Specialists EPIC REASON FOR VISIT (unrecogniz ed section and content) Recheck Right KneeNo Informa tionNo InformationCT scanReview CT [facility] referralNo Informationxray orderxray images Care Teams [...] BE BASED ON THE PRIMARY CLINICAL RECORDS. [facility] [employer] provides no warranty or guarantee of the accuracy or completeness of information in this document.
--- NOTE | 2023-11-12 09:10 | MM_ITS ---
Patient Name: CHASITY STEVENSON MR#: [id number] : 1970 Exam Date: 11/12/2023 Ordering Doctor: KELVIN Berger . RADIOLOGY REPORT PROCEDURE: MM POST BIOPSY RT COMPARISON: MM DIAGNOSTIC MAMMO UNILAT RT, 11/04/2023. INDICATIONS: Mixed Cystic and Solid Lesion BREAST COMPOSITION: FINDINGS: Post-Procedure Mammogram for Marker Placement BIOPSY MARKER: A metallic marker has been placed in the targeted location within the upper outer quadrant of the right breast. BREAST FINDINGS: The mammographic abnormality corresponds to the mammographic abnormality Dictated by: Clifford Herbert MD on 11/12/2023 at 12:22 Approved by: Clifford Herbert MD on 11/12/2023 at 12:22
--- NOTE | 2023-11-12 09:10 | US_ITS ---
[address] [address] Patient Name: CHASITY STEVENSON MRN: [id number] date: 1970 Sex: F Assigned Patient Location: US Current Patient Location: US Accession/Order Number: [id number] Exam Date: 11/12/2023 09:30 Report Date: 11/12/2023 10:32 At the request of: DAJA PENA Procedure: US breast vac bx w/ clip RT EXAMINATION: US breast vac bx w/ clip RT HISTORY: Mixed Cystic and Solid Lesion COMPARISON: No relevant comparison available. TECHNIQUE: After obtaining informed consent, an ultrasound-guided biopsy was performed in the usual sterile manner. FINDINGS: IMAGING: Ultrasound BIOPSY NEEDLE: 13-gauge vacuum-assisted core biopsy needle SPECIMEN TYPE, #, LOCATION: 5 samples, 9:00 right breast mixed nodule MEDICATION: 4 cc buffered lidocaine without epinephrine superficial. 8 cc buffered lidocaine with epinephrine deep COMPLICATIONS: None. LABORATORY: Pending OTHER: Negative. US/US breast vac bx w/ clip RT IMPRESSION: Uneventful ultrasound guided core biopsy. The patient was instructed to obtain follow up care and biopsy results from the referring physician. Electronically authenticated by: ELAINE SAHA Date: 11/12/2023 10:32
[2023-11-12 09:15] VITALS: BP 111/83; PULSE 89; O2SAT 97
[2023-11-12] MEDS: LIDOCAINE HCL/EPINEPHRINE 10 ML, SODIUM BICARBONATE 1 MEQ INJ (09:55)
[2023-11-12] MEDS: LIDOCAINE HCL 10 ML, SODIUM BICARBONATE 1 MEQ INJ (09:55)
--- NOTE | 2023-11-12 10:48 | SUR.PREOP ---
11/04 Pt instructed on procedure, date, time, and prep.
== END 2023-11-12 10:30 | disposition home or self-care (01) ==
LOC: US 08:54
PROVIDERS: Radiology Diagnostic Radiology; PCP Physician Assistant; Visit Provider Physician Assistant
DX: N64.89 Other specified disorders of breast (principal)
CPT/HCPCS: 19083; 77065; 88305; 88341; 88342

== ENCOUNTER 2024-12-14 14:22 | Outpatient (OUT) | payer OTHER, SELFPAY ==
--- OUTSIDE RECORDS SUMMARY | 2024-12-07 13:15 | XMS_ITS | Encounter Summary ---
Author Organization [facility] Address [address] [place] [address] Care Team Providers Care Cellular Equipment Installer Name Role Phone Anastacia Ham MD Primary Care Provider [phone] Encounter Details DateTypeDepartmentCare Team (Latest Contact Info)Dzqktmkcorb71/29/2025 2:15 PM EDT - 12/07/2024 2:31 PM EDTHospital Encounter [facility] [address] [place] [address] [place] [phone] Rotator cuff tear arthropathy of right shoulder Discharge Disposition: Home or Self Care () Social History Tobacco UseTypesPacks/DayYears UsedDateSmoking Tobacco: FormerCigarettesQuit: mokeless Tobacco: NeverAlcohol UseStandard Drinks/WeekCommentsYes0 (1 standard drink = 0.6 oz pure alcohol)BEER EVERY COUPLE WEEKSPHQ-2AnswerDate RecordedPatient Health Questionnaire-2 Ztyrw089UT Safety & Environment AnswerDate RecordedFear of Current or Ex-PartnerNot on file04/02/2023Emotionally AbusedNot on file04/02/2023hysically AbusedNot on file04/02/2023Sexually Abused Not on file04/02/2023hysically or Sexually AbusedNot on file04/02/2023 CommentsNoSex and Gender InformationValueDate RecordedSex Assigned at Stnwtf3911/11/2024 11:30 AM EDTLegal ArqEwsrmq27/29/2022 10:52 PM EDTGender XqunewrrDgcyas70/08/2025 8:23 AM EDTSexual OrientationHeterosexual or Straight 11/16/2024 8:23 AM EDTdocumented as of this encounter Functional Status * Pain Assessment TimerQuestionAnswerDate of AssessmentAuthorRestravia Pain Assessment CpqqrHvc64/29/2025 2:00 PM Nazanin Faith MA * QuestionAnswerDate of AssessmentAuthorPain EyljqrtkIagdgyok16/29/2025 2:00 PM Nazanin Faith MAPain IuyrenpfyriOkjmu70/29/2025 2:00 PM Nazanin Faith MAPain Score5 - Moderate pain12/07/2024 2:00 PM Nazanin Faith MA * Fall RiskQuestionAnswerDate of AssessmentAuthorOne or more falls in the last year:No12/07/2024 2:00 PM Nazanin Faith MAFeels unsteady when walkin 12/07/2024 2:00 PM Nazanin Faith MA * Pain AssessmentQuestionAnswerDate of AssessmentAuthorPain LocationShoulder 12/07/2024 2:00 PM Nazanin Faith MAPain BhcnjfpypckWkfas13/29/2025 2:00 PM Nazanin Faith MAPain Assessment0-101 2:00 PM Nazanin Faith MA Pain Score5 - Moderate pain12/07/2024 2:00 PM Nazanin Faith MA documented as of this encounter Medications at Time of Discharge MedicationSigDispense QuantityRefillsLast FilledStart DateEnd Date ascorbic acid (Vitamin C) 1,000 mg tablet Take 1,000 mg by mouth in the morning. aspirin 81 mg EC tablet Indications:Status post reverse arthroplasty of shoulder, rightTake 1 tablet (81 mg) by mouth in the morning for 28 days. This medication is for prevention of blood clots, not for pain relief. Do not stop taking until prescription runs out. 28 tablet baclofen (Lioresal) 10 mg tablet Take 1 tablet by mouth if needed at bedtime. biotin 10,000 mcg capsule Take by mouth. BOSWELLIA JORDIN EXTRACT ORAL Take 600 mg by mouth. calcium citrate (Calcitrate) 200 mg (950 mg) tablet Take 2 tablets by mouth every other day. cephalexin (Keflex) 500 mg capsule Indications:surgical site prophylaxisTake 1 capsule (500 mg) by mouth four times daily for 3 days. 12 capsule cholecalciferol, vitamin D3, 50 mcg (2,000 unit) capsule Take 1 tablet by mouth in the morning. fish oil/borage/flax/om3,6,9 1 (OMEGA 3-6-9 ORAL) Take by mouth. HYDROcodone-acetaminophen (Yolo) 5-325 mg tablet Indications:Status post reverse arthroplasty of shoulder, rightTake 1 tablet by mouth every 4 (four) hours if needed for severe pain (8-10 pain score) for up to 7days. 42 tablet latanoprost (Xalatan) 0.005 % ophthalmic solution Administer 1 drop into both eyes at bedtime. multivitamin tablet Take 1 tablet by mouth in the morning. QUERCETIN ORAL Take by mouth once daily as directed. BROMELAIN sennosides-docusate sodium (Guadalupe-Colace) 8.6-50 mg tablet Indications:Status post reverse arthroplasty of shoulder, rightTake 1 tablet by mouth in the morning for 7 days. Take while taking narcotic pain medications 7 tablet sulfamethoxazole-trimethoprim (Bactrim) 200-40 mg/5 mL suspension Take by mouth two times daily. sulfamethoxazole-trimethoprim (Bactrim) 400-80 mg tablet Take 1 tablet by mouth two times daily. TURMERIC ORAL Take by mouth. WITH SHAHNAZ HYDROcodone-acetaminophen (Yolo) 5-325 mg tablet Take 2 tablets by mouth in the morning and at bedtime.12/12/2024 phytonadione, vit K1, (MEPHYTON ORAL) vitamin K102/12/2024 Senna-S 8.6-50 mg tablet Take 1 tablet by mouth if needed in the morning and at bedtime.04/16/2021 12/12/2024documented as of this encounter Plan of Treatment DateTypeDepartmentCare Team (Latest Contact Info)Ubrfvxpgtql38/19/2025 1:30 PM ESTOffice Visit [facility] [address] [place] [address] [place] [address] Campbell Ortega MD [address] [place] [address] documented as of this encounter Procedures Procedure NamePriorityDate/TimeAssociated DiagnosisCommentsXR SHOULDER 2+ VIEWS ZVOGDSwzbqvc17/29/2025 2:30 PM EDT Rotator cuff tear arthropathy of right shoulder documented in this encounter Results * XR shoulder 2+ views right (12/07/2024 2:30 PM EDT)Anatomical RegionLaterality ModalityUpper Extremities, ShoulderRightComputed RadiographySpecimen (Source) Anatomical Location / LateralityCollection Method / VolumeCollection Time Received Time12/08/2024 7:23 AM EDT Impressions 12/08/2024 7:24 AM EDT No acute osseous abnormality evident radiographically. Acromioclavicular degenerative changes. Electronically signed: Roney De La Torre. Narrative 12/08/2024 7:24 AM EDT XR SHOULDER 2+ VIEWS RIGHT 12/07/2024 2:16 PM CLINICAL INDICATIONS: ??Shoulder arthropathy. COMPARISON: None FINDINGS: 3 views of the right shoulder were obtained. Glenohumeral alignment is anatomic. Articular surfaces are intact. Bone mineralization is within normal limits. Minimal hypertrophic changes are present the right acromioclavicular joint Procedure Note Roney De La Torre MD - 12/08/2024 XR SHOULDER 2+ VIEWS RIGHT 12/07/2024 2:16 PM CLINICAL INDICATIONS: Shoulder arthropathy. COMPARISON: None FINDINGS: 3 views of the right shoulder were obtained. Glenohumeral alignment isanatomic. Articular surfaces are intact. Bone mineralization is within normallimits. Minimal hypertrophic changes are present the right acromioclavicularjoint IMPRESSION: No acute osseous abnormality evident radiographically. Acromioclavicular degenerative changes. Electronically signed: Roney De La Torre. Authorizing ProviderResult TypeResult StatusVibibiana Ortega MDIMG XR PROCEDURES Final Result documented in this encounter Visit Diagnoses Diagnosis Rotator cuff tear arthropathy of right shoulder documented in this encounter Care Teams Team MemberRelationshipSpecialtyStart DateEnd Date Anastacia Ham MD [facility] PCP - General09/27/21documented as of this encounter
--- OUTSIDE RECORDS SUMMARY | 2024-12-07 13:32 | XMS_ITS | Encounter Summary ---
Author Organization [facility] Address [address] [place] [address] Care Team Providers Care International Logistics Manager Name Role Phone Anastacia Ham MD Primary Care Provider [phone] Encounter Details DateTypeDepartmentCare Team (Latest Contact Info)Mstprmgpqdu70/29/2025 2:32 PM EDT - 12/07/2024 11:59 PM EDTHospital Encounter [facility] [address] [place] [address] [place] [phone] Primary osteoarthritis of left shoulder Discharge Disposition: Home or Self Care () Social History Tobacco UseTypesPacks/DayYears UsedDateSmoking Tobacco: FormerCigarettesQuit: mokeless Tobacco: NeverAlcohol UseStandard Drinks/WeekCommentsYes0 (1 standard drink = 0.6 oz pure alcohol)BEER EVERY COUPLE WEEKSPHQ-2AnswerDate RecordedPatient Health Questionnaire-2 Wobun617UT Safety & Environment AnswerDate RecordedFear of Current or Ex-PartnerNot on file04/02/2023Emotionally AbusedNot on file04/02/2023hysically AbusedNot on file04/02/2023Sexually Abused Not on file04/02/2023hysically or Sexually AbusedNot on file04/02/2023 CommentsNoSex and Gender InformationValueDate RecordedSex Assigned at Bkauzv7711/11/2024 11:30 AM EDTLegal UyaExnhny32/29/2022 10:52 PM EDTGender BrhorejoXltrpq80/08/2025 8:23 AM EDTSexual OrientationHeterosexual or Straight 11/16/2024 8:23 AM EDTdocumented as of this encounter Functional Status * Pain Assessment TimerQuestionAnswerDate of AssessmentAuthorRestcalhoun Pain Assessment FyshgZcb30/29/2025 2:00 PM Nazanin Faith MA * QuestionAnswerDate of AssessmentAuthorPain UoymapiwGekyfqsz92/29/2025 2:00 PM Nazanin Faith MAPain VknuimyjbkmMwkxc48/29/2025 2:00 PM Nazanin Faith MAPain Score5 - Moderate pain12/07/2024 2:00 PM Nazanin Faith MA * Fall RiskQuestionAnswerDate of AssessmentAuthorOne or more falls in the last year:No12/07/2024 2:00 PM Nazanin Faith MAFeels unsteady when walkin 12/07/2024 2:00 PM Nazanin Faith MA * Pain AssessmentQuestionAnswerDate of AssessmentAuthorPain LocationShouer 12/07/2024 2:00 PM Nazanin Faith MAPain QjpknwzdeqdUlfxg15/29/2025 2:00 PM Nazanin Faith MAPain Assessment0-101 2:00 [...] (OMEGA 3-6-9 ORAL) Take by mouth. HYDROcodone-acetaminophen (Glade) 5-325 mg tablet Indications:Status post reverse arthroplasty [...] ORAL Take by mouth. WITH SHAHNAZ HYDROcodone-acetaminophen (Glade) 5-325 mg tablet Take 2 tablets by mouth in the morning and at bedtime.12/12/2024 phytonadione, vit K1, (MEPHYTON ORAL) vitamin K102/12/2024 Senna-S 8.6-50 mg tablet Take 1 tablet by mouth if needed in the morning and at bedtime.04/16/2021 12/12/2024documented as of this encounter Plan of Treatment DateTypeDepartmentCare Team (Latest Contact Info)Qqaflepgisy44/19/2025 1:30 PM ESTOffice Visit [facility] [address] [place] [address] [place] [phone] Campbell Ortega MD [address] [place] [phone] documented as of this encounter Procedures Procedure NamePriorityDate/TimeAssociated DiagnosisCommentsXR SHOULDER 2+ VIEWS CUDHQzioead40/29/2025 2:33 PM EDT Primary osteoarthritis of left shoulder documented in this encounter Results * XR shoulder 2+ views left (12/07/2024 2:33 PM EDT)Anatomical RegionLaterality ModalityUpper Extremities, ShoulderLeftComputed RadiographySpecimen (Source) Anatomical Location / LateralityCollection Method / VolumeCollection Time Received Time12/08/2024 7:24 AM EDT Impressions 12/08/2024 7:24 AM EDT Acromioclavicular degenerative changes with no acute abnormality evident radiographically. Electronically signed: Roney De La Torre. Narrative 12/08/2024 7:24 AM EDT XR SHOULDER 2+ VIEWS LEFT 12/07/2024 2:32 PM CLINICAL INDICATIONS: ??Shoulder pain. COMPARISON: None FINDINGS: 3 views the shoulder were obtained. Mild acromioclavicular hypertrophic changes are present. Glenohumeral alignment is anatomic with intact articular surfaces. Other visualized osseous structures of the left upper hemithorax are within normal limits. Procedure Note Roney De La Torre MD - 12/08/2024 XR SHOULDER 2+ VIEWS LEFT 12/07/2024 2:32 PM CLINICAL INDICATIONS: Shoulder pain. COMPARISON: None FINDINGS: 3 views the shoulder were obtained. Mild acromioclavicular hypertrophicchanges are present. Glenohumeral alignment is anatomic with intact articularsurfaces. Other visualized osseous structures of the left upper hemithorax arewithin normal limits. IMPRESSION: Acromioclavicular degenerative changes with no acute abnormality evident radiographically. Electronically signed: Roney Russell Authorizing ProviderResult TypeResult StatusVibibiana Ortega MDIMG XR PROCEDURES Final Result documented in this encounter Visit Diagnoses Diagnosis Primary osteoarthritis of left shoulder documented in this encounter Care Teams Team MemberRelationshipSpecialtyStart DateEnd Date [place], Rugen, MD 3 [facility] PCP - General09/27/21documented as of this encounter
--- OUTSIDE RECORDS SUMMARY | 2024-12-07 13:45 | XMS_ITS | Encounter Summary ---
Author Organization [facility] 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 Name Role Phone Anastacia Ham MD Primary Care Provider [phone] Reason for Referral * (Routine) - Pending ReviewSpecialtyDiagnoses / ProceduresReferred By Contact Referred To Contact Diagnoses Rotator cuff tear arthropathy of right shoulder Primary osteoarthritis of left shoulder Pre-op testing Procedures ECG 12 lead Campbell Ortega MD [address] [place] [phone] Phone: tel: fax: Referral IDStatusReasonStart DateExpiration DateVisits RequestedVisits [id number] Reason for Visit * ReasonCommentsPainPain Encounter Details DateTypeDepartmentCare Team (Latest Contact Info)Fgcpywetkqd33/29/2025 2:45 PM EDTConsult [facility] [address] [place] [address] [place] [phone] Campbell Ortega MD [address] [place] [phone] Rotator cuff tear arthropathy of right shoulder (Primary Dx); Primary osteoarthritis of left shoulder; Pre-op testing Social History Tobacco UseTypesPacks/DayYears UsedDateSmoking Tobacco: FormerCigarettesQuit: mokeless Tobacco: Never Tobacco Cessation:Counseling Given: Not Answered Alcohol UseStandard Drinks/WeekCommentsYes0 (1 standard drink = 0.6 oz pure alcohol)BEER EVERY COUPLE WEEKSPHQ-2AnswerDate RecordedPatient Health Questionnaire-2 Vqxpj509UT Safety & EnvironmentAnswerDate RecordedFear of Current or Ex-PartnerNot on file04/02/2023Emotionally AbusedNot on file 04/02/2023hysically AbusedNot on file04/02/2023Sexually AbusedNot on file 04/02/2023hysically or Sexually AbusedNot on file04/02/2023CommentsNo Sex and Gender InformationValueDate RecordedSex Assigned at BirthFemale 11/11/2024 11:30 AM EDTLegal TklLscsni70/29/2022 10:52 PM EDTGender Identity Itrsix0611/16/2024 8:23 AM EDTSexual OrientationHeterosexual or Dbzwrzfb97/08/2025 8:23 AM EDTdocumented as of this encounter Last Filed Vital Signs Vital SignReadingTime TakenCommentsBlood Pressure--Pulse--Temperature-- Respiratory Rate--Oxygen Saturation--Inhaled Oxygen Concentration--Eklcvy221 kg (275 lb)12/07/2024 2:42 PM XKFWztksu431.3 cm (5' 11 )12/07/2024 2:42 PM EDTBody Mass Index38.351 2:42 PM EDTdocumented in this encounter Functional Status * Pain Assessment TimerQuestionAnswerDate of AssessmentAuthorRestart Pain Assessment YfofmQld24/29/2025 2:00 PM Nazanin Faith MA * QuestionAnswerDate of AssessmentAuthorPain EzlstjkwWkreeanx91/29/2025 2:00 PM Nazanin Faith MAPain KnfuolmiyioQpdqz14/29/2025 2:00 PM Nazanin Faith MAPain Score5 - Moderate pain12/07/2024 2:00 PM Nazanin Faith MA * Fall RiskQuestionAnswerDate of AssessmentAuthorOne or more falls in the last year:No12/07/2024 2:00 PM Nazanin Faith MAFeels unsteady when walkin 12/07/2024 2:00 PM Nazanin Faith MA * Pain AssessmentQuestionAnswerDate of AssessmentAuthorPain LocationShoulder 12/07/2024 2:00 PM Nazanin Faith MAPain VbxpkpyewkhXuhoj99/29/2025 2:00 PM Nazanin Faith MAPain Assessment0-101 2:00 PM Nazanin Faith MA Pain Score5 - Moderate pain12/07/2024 2:00 PM Nazanin Faith MA documented as of this encounter Progress Notes * Campbell Ortega MD - 12/07/2024 2:45 PM EDT Images from the original note were not included. Orthopaedic Surgery Subjective 12/07/24 Keila Richardson is a 54 y.o. female presenting for pre-op evaluation prior to RIGHT shoulder rTSA. No changes in symptoms since last visit, continues to have significant right shoulder symptoms. Also has a little pain in the left shoulder. She also reports significant right shoulder pain. She statesshe first began to have difficulty with her right shoulder after falling in August 2023. Her symptomshave worsened over the last three months. Her pain radiates into her right hand and into the right side of her neck. She has associated right shoulder weakness and decreased range of motion due to pain. She denies numbness or tingling. She has tried PT exercises, motrin, ice, and tylenol without rel ief. She cannot have steroid injections due to history of glaucoma. She also notes she has had intermittent right hip pain over the last year. Pertinent Histories PMHx: none pertinent. CAD - No . CVA/TIA - No . COPD - No . PVD/other vascular disease - No . DM - No . Hx DVT/PE - No . ALPESH - No PSHx: non-pertinent Blood thinners: No Other Pertinent Medications: No Social: -Tobacco/Nicotine Containing Products:No -Other: No Allergies: -Medication allergies: No -Latex/adhesive allergies: yes - silicone tapes -Metal allergies: No History Surgical History[1] Medical History[2] Review of Systems Constitutional: Negative for chills, fatigue and fever. HENT: Negative for congestion, mouth sores, rhinorrhea, sinus pain and sore throat. Respiratory: Negative for cough, chest tightness and shortness of breath. Cardiovascular: Negative for chest pain, palpitations and leg swelling. Gastrointestinal: Negative for abdominal pain and nausea. Genitourinary: Negative for dysuria, flank pain, frequency, hematuria and urgency. Musculoskeletal: Positive for arthralgias. Skin: Negative for color change, rash and wound. Hematological: Negative for adenopathy. Does not bruise/bleed easily. Objective General: There were no vitals taken for this visit. Body mass index is 38.35 kg/m??. Physical Exam Constitutional: General: She is not in acute distress. Appearance: Normal appearance. She is not ill-appearing. HENT: Mouth/Throat: Mouth: Mucous membranes are moist. Eyes: Extraocular Movements: Extraocular movements intact. Cardiovascular: Pulses: Normal pulses. Pulmonary: Effort: Pulmonary effort is normal. No respiratory distress. Musculoskeletal: General: Tenderness present. Cervical back: Normal range of motion and neck supple. Comments: Pain with ROM to right shoulder Skin: General: Skin is warm and dry. Capillary Refill: Capillary refill takes less than 2 seconds. Neurological: General: No focal deficit present. Mental Status: She is alert. Imaging X-ray of the left shoulder in office today 12/07/2024: X-ray of the right shoulder was also repeated which were compared with the previous x-rays show the patient has minor progression of the glenohumeral osteoarthritis along with well-maintained glenohumeral joint, no erosion of the glenoid noted along with proximal action of the humeral head suggestive of chronic rotator cuff tear arthropathy noted. No fracture or acute findings, overall unremarkable shoulder x-ray Images of R shoulder from September 2023 at [facility] were also reviewed: Near complete rotator cuff tear with proximal migration of humerus. This was reviewed on the CD which show the patient has MRI scan from outside incision which shows the patient has complete tear of the supraspinatus as well as fluid around the rotator cuff as well as the biceps tendon sheath suggestive of complete tear of therotator cuff along with rotator cuff tear arthropathy proximal migration of the humeral head noted with glenohumeral osteoarthritis which is mild to moderate. She also has AC joint arthritis. The details were explained to the patient. Patient will need x-rays of the left shoulder during her next visit. Imaging personally reviewed and interpreted by attending physician. Findings discussed with patient. Imaging personally reviewed and interpreted by attending physician. Findings discussed with patient. Assessment/Plan Keila Richardson is a 54 y.o. female presenting for pre-op visit prior to R rTSA. Clinical findings and any additional pertinent imaging/test results were discussed with the patient as well as the risks and benefits of medical and surgical treatment options. At this time, given the failure of conservative therapy and other noted indications for surgery, we recommend right shoulder reverse total shoulder arthroplasty, and the patient is understanding and agreeable. MRI Scan right shoulder :near complete right rotator cuff tear after a fall in August 2023 with worsening R shoulder pain over the last few months. Conservative measures have not helped her shoulder and she wishes to pursue shoulder replacement. Discussed with the patient that due to her rotator cufftear, reverse shoulder replacement is indicated. Offered referral to Orthopedic-sports with Dr. Perez or Dr. Isaacs for possibility of cuff repair, but patient declined. She would like to pursue reverse shoulder replacement due to her current symptoms significantly interfering with daily life. Risks and benefits were discussed with the patient including the followingwhich are but not restricted to bleeding, infection, neurovascular injury, residual pain and stiffness, stroke, mortality less than 1%, recurrent dislocations, periprosthetic fractures, iatrogenic fractures, limited range of motion to 90 degrees forward flexion and abduction with reverse total shoulder arthroplasty, axillary nerve palsy, infections from C acnes, overall discussed at length with the patient as well as need for multiple revisions and need for excision arthroplasty in case of recurrent infections and failure to reduce the pain coming from other parts of the body including the neck. Despite all the risks patient wishes to proceed with surgery. We have given her options to consider sports orthopedic surgery consult for discussion of rotator cuff repairs and other indicated procedures with the sports orthopedics team which she declined at this point in time. Patient is agreeable and will schedule with her PCP for pre-op clearance. Patient will continue with her weight loss program for her hip joints as she has progressive arthritis of the right hip joint along with previous intramedullary nailing hat callus formation. Patient will benefit with strengthening of the lower extremity -Obtain pre-op clearance for reverse shoulder replacement of right shoulder -Continue home exercises for shoulder and hips -Continue ice, ibuprofen, tylenol as needed to control pain Considerable time was pending explained to the patient the nature of the problem and treatment options of each. Patient understands the nature of the problem and treatment options. Nonsurgical options were also discussed including cortisone injection in the shoulder and continuation of her physicaltherapy which she has also tried. Written/electronic consent completed today in clinic. Post-operative restrictions were discussed. Pre-operative clearance notes were reviewed in office today, appropriate clearances have been obtained, patient has elected to move forward with surgery. -Clearance obtained -Informed consent obtained -Proceed with surgery as scheduled Jose Antonio Randolph MD Orthopaedic Surgery, Resident 12/07/24 2:47 PM Lvl Problems Addressed Amount and/or Complexity of the Data Risk 5 High: [x]1 or more chronic illnesses with severe exacerbation, progression, or side effects of treatment []1 acute or chronic illness or injury that poses a threat to life or bodily function Extensive: Any combination of 2: []Review of prior external notes from unique source [x]Review of the results from each unique test [x]Ordered of each unique test []Assessment requiring an independent historian that is not the patient OR []Independent interpretation of a test performed by another physician/other qualified health assistant child care teacher (not separately reported); OR []Discussion of management or test interpretation with external physician/other qualified health assistant child care teacher/appropriate source (not separately reported) High risk of morbidity from additional diagnostic testing or treatment: []Drug therapy requiring intensive monitoring for toxicity [x]Decision regarding elective major surgery with identified patient or procedure risk factors []Decision regarding emergency major surgery []Decision regarding hospitalization []Decision not to resuscitate or to de-escalate care because of poor prognosis By using the attestations below, the signing clinician agrees that I have read and verify that thedocumentation has been personally reviewed by me and ensure that the documentation accurately reflects the encounter. GC: I personally saw this patient on the day of the encounter, performed the ayala portion(s) of the service and participated in the management and confirm the resident's documentation. Please note there may be an additional personal documentation from me. Dr. Campbell Ortega MD MRCSEd Senior Mechanical Technician orthopedic surgery Adult Reconstruction and Trauma [facility]. [1] Past Surgical History: Procedure Laterality Date CTA CHEST W IV CONTRAST 11/28/2021 CT CHEST ANGIOGRAM W AND/OR WO IV CONTRAST 11/28/[address] [facility] [address] IMAGING FEMUR FRACTURE SURGERY Left X2 HIP ARTHROPLASTY HYSTERECTOMY KNEE ARTHROPLASTY Bilateral KNEE ARTHROSCOPY W/ DEBRIDEMENT Bilateral PARTIAL HYSTERECTOMY [2] Past Medical History: Diagnosis Date Adverse effect of anesthesia MOM HX DELAYED EMERGENCE Fractures Osteoarthritis Rotator cuff tear arthropathy of right shoulder Seasonal allergies documented in this encounter Plan of Treatment DateTypeDepartmentCare Team (Latest Contact Info)Xgoskwrnook24/19/2025 1:30 PM ESTOffice Visit [facility] [address] [place] [address] [place] [phone] Campbell Ortega MD [address] [place] [phone] NameTypePriorityAssociated DiagnosesOrder ScheduleHemoglobin A4tBfbIdtpvoo Rotator cuff tear arthropathy of right shoulder Primary osteoarthritis of left shoulder Expected: 12/08/2024 (Approximate), Expires: 12/07/2025ECG 12 leadECGRoutine Rotator cuff tear arthropathy of right shoulder Primary osteoarthritis of left shoulder Pre-op testing Expected: 12/08/2024 (Approximate), Expires: 12/07/2025asic metabolic panelLab Routine Rotator cuff tear arthropathy of right shoulder Primary osteoarthritis of left shoulder Pre-op testing Expected: 12/08/2024 (Approximate), Expires: 12/07/2025MRSA/MSSA DNA Nasal MicrobiologyRoutine Rotator cuff tear arthropathy of right shoulder Primary osteoarthritis of left shoulder Pre-op testing Expected: 12/08/2024 (Approximate), Expires: 12/07/2025BC and differentialLab Routine Rotator cuff tear arthropathy of right shoulder Primary osteoarthritis of left shoulder Pre-op testing Expected: 12/08/2024 (Approximate), Expires: 12/07/2025omprehensive metabolic panelLabRoutine Rotator cuff tear arthropathy of right shoulder Primary osteoarthritis of left shoulder Pre-op testing Expected: 12/08/2024 (Approximate), Expires: 12/07/2025documented as of this encounter Results * XR shoulder 2+ [...] Electronically signed: Roney Russell Authorizing ProviderResult TypeResult StatusCampbell Ortega MDIMG XR PROCEDURES Final Result * XR shoulder 2+ views right (12/07/2024 [...] Diagnosis Rotator cuff tear arthropathy of right shoulder- Primary Primary osteoarthritis of left shoulder Pre-op testing Unspecified pre-operative examination Rotator cuff tear arthropathy of right shoulder Primary osteoarthritis of left shoulder documented in this encounter Care Teams Team MemberRelationshipSpecialtyStart DateEnd Date Anastacia Ham MD [facility]09/27/21documented as of this encounter
--- OUTSIDE RECORDS SUMMARY | 2024-12-07 14:10 | XMS_ITS | Encounter Summary ---
Author Organization [facility] Address [address] [place] [address] Care Team Providers Care Human Resources Clerk Name Role Phone Anastacia Ham MD Primary Care Provider [phone] Encounter Details DateTypeDepartmentCare Team (Latest Contact Info)Geeesfpzvez71/29/2025 3:10 PM EDTLab [facility] Station [address] [place] [address] Pre-op testing; Clotting disorder Social History Tobacco UseTypesPacks/DayYears UsedDateSmoking Tobacco: FormerCigarettesQuit: mokeless Tobacco: NeverAlcohol UseStandard Drinks/WeekCommentsYes0 (1 standard drink = 0.6 oz pure alcohol)BEER EVERY COUPLE WEEKSPHQ-2AnswerDate RecordedPatient Health Questionnaire-2 [id number] Safety & Environment AnswerDate RecordedFear of Current or Ex-PartnerNot on file04/02/2023Emotionally AbusedNot on file04/02/2023hysically AbusedNot on 04/02/2023Sexually Abused Not on file04/02/2023hysically or Sexually AbusedNot on file04/02/2023 CommentsNoSex and Gender InformationValueDate RecordedSex Assigned at Qwkhyy3411/11/2024 11:30 AM EDTLegal FrmCbxrye78/29/2022 10:52 PM EDTGender WtfwxntqYdtztz75/08/2025 8:23 AM EDTSexual OrientationHeterosexual or Straight 11/16/2024 8:23 AM EDTdocumented as of this encounter Functional Status * Pain Assessment TimerQuestionAnswerDate of AssessmentAuthorRestart Pain Assessment IwgldCor18/29/2025 2:00 PM Nazanin Faith MA * QuestionAnswerDate of AssessmentAuthorPain QwvmxbqeDhkmrclz98/29/2025 2:00 PM EDTMNazanin curtis, MAPain LpamomxcvknSrqnk58/29/2025 2:00 PM EDTMNazanin curtis, MAPain Score5 - Moderate pain12/07/2024 2:00 PM Nazanin Faith MA * Fall RiskQuestionAnswerDate of AssessmentAuthorOne or more falls in the last year:No12/07/2024 2:00 PM Nazanin Faith MAFeefátima unsteady when walkin 12/07/2024 2:00 PM Nazanin Faith MA * Pain AssessmentQuestionAnswerDate of AssessmentAuthorPain LocationShoulder 12/07/2024 2:00 PM EDNazanin Shay, MAPain IewjlbzqmcrFktdo62/29/2025 2:00 PM Nazanin Faith, MAPain Assessment0-101 2:00 PM Nazanin Faith MA Pain Score5 - Moderate pain12/07/2024 2:00 PM Nazanin Faith MA documented as of this encounter Plan of Treatment DateTypeDepartmentCare Team (Latest Contact Info)Ghsdhebvzov43/19/2025 1:30 PM ESTOffice Visit [facility] [address] [place] [address] [place] [address] Campbell Ortega MD [address] [place] [address] [place] [address] documented as of this encounter Procedures Procedure NamePriorityDate/TimeAssociated DiagnosisCommentsURINALYSIS MICROSCOPIC WITH REFLEX BQMCODHBiasrlu49/29/2025 3:09 PM EDT Pre-op testing URINALYSIS WITH REFLEX DHQHZFHCfadzwg23/29/2025 3:09 PM EDT Pre-op testing CBC WITH AUTO ICMZQQEARNMNEwfelxm71/29/2025 3:09 PM EDT Pre-op testing MRSA/MSSA DNA KKYRFXigljvs89/29/2025 3:09 PM EDT Pre-op testing KUSARfpxfch12/29/2025 3:09 PM EDT Clotting disorder PROTIME-MLWGqlgaxq19/29/2025 3:09 PM EDT Clotting disorder CBC AND CEVRJLJRTFZYLtxnmth70/29/2025 3:09 PM EDT Pre-op testing TYPE AND VDCMEWVqhkwbh28/29/2025 3:09 PM EDT Pre-op testing URINE JVBRBDWVkokizs92/29/2025 3:09 PM EDT Pre-op testing COMPREHENSIVE METABOLIC EQNYVBvlbzml26/29/2025 3:09 PM EDT Pre-op testing documented in this encounter Results * (ABNORMAL) Urine culture, routine (12/07/2024 3:09 PM EDT)ComponentValueRef RangeTest MethodAnalysis TimePerformed AtPathologist SignatureUrine Culture >100,000 CFU/Ml Klebsiella aerogenes(A) KAIDEN 12/09/2024 8:20 AM [facility] (HIARGELIA)Specimen (Source)Anatomical Location / LateralityCollection Method / VolumeCollection TimeReceived TimeUrine Urine specimen obtained by clean catch procedure / UnknownNon-blood Collection / Ydddaoz5912/07/2024 3:09 PM EDT1 3:43 PM EDT Narrative OrganismAntibioticMethodSusceptibilityKlebsiella aerogenesCefazolin (Urine)KAIDEN Resistant Klebsiella aerogenesCefepimeMIC <=1 ug/ml: Susceptible Klebsiella aerogenesCiprofloxacinMIC <=0.25 ug/ml: Susceptible Klebsiella aerogenesLevofloxacinMIC <=0.5 ug/ml: Susceptible Klebsiella aerogenesMeropenemMIC <=0.5 ug/ml: Susceptible Klebsiella aerogenesTrimethoprim + SulfamethoxazoleMIC <=0.5/9.5 ug/ml: Susceptible Klebsiella aerogenesSusceptibility CommentMIC CEFE ug/ml Comment: Cefepime (when cefepime KAIDEN value is <=2 ug/ml) and meropenem (when cefepime is KAIDEN >=4 ug/[place] meropenem KAIDEN value is susceptible) are the preferred therapies for this organism due to moderate-high risk of AmpC beta-lactam production. Fluoroquinolones and trimethoprim-sulfamethoxazole may be considered as alternative intravenous or oral therapy options. Authorizing ProviderResult TypeResult Karo ARGUETA MICROBIOLOGY - GENERAL ORDERABLESFinal ResultPerforming OrganizationAddressCity/State/ZIP Code Phone Number [facility] ([facility]) [address] [place] [address] * (ABNORMAL) Urinalysis microscopic with reflex culture (12/07/2024 3:09 PM EDT) ComponentValueRef RangeTest MethodAnalysis TimePerformed AtPathologist SignatureRBC, Urine0-2None Seen, 0-2 /HPF12/07/2024 4:11 PM [facility] ([facility])WBC, Urine>50(A)None Seen, 0-2 /HPF12/07/2024 4:11 PM [facility] ([facility])Squamous Epithelial, UrineMany(A)None Seen, Occasional, Few /LP12/07/2024 4:11 PM [facility] ([facility])Mucus, UrineFewNone Seen, Occasional, Few /LP12/07/2024 4:11 PM [facility] ([facility]) Specimen (Source)Anatomical Location / LateralityCollection Method / Volume Collection TimeReceived TimeUrineUrine specimen obtained by clean catch procedure / UnknownNon-blood Collection / Ocekhlb8812/07/2024 3:09 PM EDT 12/07/2024 3:43 PM EDT Narrative Authorizing ProviderResult TypeResult StatusCampbell ARGUETA URINE ORDERABLESFinal ResultPerforming OrganizationAddressCity/State/ZIP CodePhone Number [facility] ([facility]) [address] [place] [address] * (ABNORMAL) CBC auto differential (12/07/2024 3:09 PM EDT)ComponentValueRef RangeTest MethodAnalysis TimePerformed AtPathologist SignatureAuto WBC8.944.00 - 10.60 10*3/uL12/07/2024 3:58 PM [facility] ([facility])RBC4.703.80 - 5.00 10*6/uL12/07/2024 3:58 PM [facility] ([facility])Upjdvedtpg41.912.0 - 15.0 g/dL12/07/2024 3:58 PM [facility] ([facility])Ecpzdxipkx38.636.0 - 45.0 %12/07/2024 3:58 PM [facility] ([facility])MCV88.582.0 - 98.0 fL 12/07/2024 3:58 PM [facility] ([facility])MCH29.627.0 - 33.0 pg 12/07/2024 3:58 PM [facility] ([facility])MCHC33.432.0 - 35.0 g/dL 12/07/2024 3:58 PM [facility] ([facility])RDW12.911.5 - 15.0 %12/07/2024 3:58 PM [facility] ([facility])Neutrophils %63.440.0 - 72.0 %12/07/2024 3:58 PM [facility] ([facility])Lymphocytes %28.420.0 - 45.0 %12/07/2024 3:58 PM [facility] ([facility])Monocytes %6.85.0 - 12.0 %12/07/2024 3:58 PM [facility] ([facility])Eosinophils %1.00.0 - 6.0 %12/07/2024 3:58 PM [facility] ([facility])Basophils %0.30.0 - 1.0 %12/07/2024 3:58 PM [facility] ([facility])Neutrophils Absolute5.661.60 - 7.60 10*3/uL 12/07/2024 3:58 PM [facility] ([facility])Lymphocytes Absolute2.541.20 - 4.00 10*3/uL12/07/2024 3:58 PM [facility] ([facility])Monocytes Absolute 0.610.10 - 1.00 10*3/uL12/07/2024 3:58 PM [facility] ([facility]) Eosinophils Absolute0.090.00 - 0.50 10*3/uL12/07/2024 3:58 PM [facility] ([facility])Basophils Absolute0.030.00 - 0.20 10*3/uL12/07/2024 3:58 PM EDT [facility] ([facility])Ykuqymnhx006(H)150 - 400 10*3/uL12/07/2024 3:58 PM [facility] ([facility])nRBC %0.00 %12/07/2024 3:58 PM [facility] ([facility])Immature Granulocytes %0.10.0 - 1.0 %12/07/2024 3:58 PM [facility] ([facility])Immature Granulocytes Absolute0.010.00 - 0.20 10*3/uL 12/07/2024 3:58 PM [facility] ([facility])Specimen (Source)Anatomical Location / LateralityCollection Method / VolumeCollection TimeReceived Time BloodVenous blood specimen / UnknownVenipuncture / Beopixb4012/07/2024 3:09 PM EDT1 3:50 PM EDT Narrative Authorizing ProviderResult TypeResult StatusVibibiana Ortega MDLAB BLOOD ORDERABLESFinal ResultPerforming OrganizationAddressCity/State/ZIP CodePhone Number [facility] ([facility]) [address] [place] [address] * (ABNORMAL) Urinalysis with reflex culture (12/07/2024 3:09 PM EDT)Component ValueRef RangeTest MethodAnalysis TimePerformed AtPathologist SignatureColor, UrineLight-YellowColorless, Yellow, Light-Uxjmev4412/07/2024 4:11 PM [facility] ([facility])Clarity, UrineCloudy(A)Clear12/07/2024 4:11 PM [facility] ([facility])pH, Urine5.55.0 - 8.0 pH12/07/2024 4:11 PM [facility] ([facility])Leukocytes, UrineLarge(A)Mgvxfcvk25/29/2025 4:11 PM EDT [facility] ([facility])Nitrite, UrinePositive(A)Amxwgxmb80/29/2025 4:11 PM [facility] ([facility])Protein, UrineNegativeNegative mg/dL12/07/2024 4:11 PM [facility] ([facility])Glucose, UrineNormalNormal mg/dL 12/07/2024 4:11 PM [facility] ([facility])Bilirubin, UrineNegative Wvssxtwz15/29/2025 4:11 PM [facility] ([facility])Specific [place], Urine1.0131.010 - 1.7297112/07/2024 4:11 PM [facility] ([facility]) Ketones, UrineNegativeNegative mg/dL12/07/2024 4:11 PM [facility] ([facility])Blood, SmdrrEglmmhkaVphmpfbh99/29/2025 4:11 PM [facility] ([facility])Urobilinogen, UrineNormalNormal mg/dL12/07/2024 4:11 PM [facility] ([facility])Specimen (Source)Anatomical Location / Laterality Collection Method / VolumeCollection TimeReceived TimeUrineUrine specimen obtained by clean catch procedure / UnknownNon-blood Collection / Unknown 12/07/2024 3:09 PM EDT1 3:43 PM EDT Narrative Authorizing ProviderResult TypeResult StatusVibibiana ARGUETA URINE ORDERABLESFinal ResultPerforming OrganizationAddressCity/State/ZIP CodePhone Number [facility] ([facility]) [address] [place] [address] * Type and screen (12/07/2024 3:09 PM EDT)ComponentValueRef RangeTest Method Analysis TimePerformed AtPathologist SignatureABO OcaljoppI29/29/2025 4:43 PM [facility] BLOOD BANKRh VgapBQJ3712/07/2024 4:43 PM [facility] BLOOD BANKAb ScrnNEG 12/07/2024 4:43 PM [facility] BLOOD BANKSpecimen (Source)Anatomical Location / LateralityCollection Method / VolumeCollection TimeReceived TimeBloodVenous blood specimen / UnknownVenipuncture / Mhjtwss3512/07/2024 3:09 PM EDT1 3:46 PM EDT Narrative Authorizing ProviderResult TypeResult StatusCampbell Ortega [facility] BLOOD BANK TEST ORDERABLESFinal ResultPerforming OrganizationAddressCity/State/ZIP CodePhone Number [facility] * MRSA nasal swab (12/07/2024 3:09 PM EDT)ComponentValueRef RangeTest Method Analysis TimePerformed AtPathologist SignatureMSSA DNANegativeNegative 12/08/2024 2:27 PM [facility] ([facility])MRSA DNANegativeNegative 12/08/2024 2:27 PM [facility] ([facility])Specimen (Source)Anatomical Location / LateralityCollection Method / VolumeCollection TimeReceived Time SwabNasal structure / UnknownNon-blood Collection / Vihvhsu1712/07/2024 3:09 PM EDT1 3:46 PM EDT Narrative [facility] ([facility]) - 12/08/2024 2:27 PM EDT Testing methodology is an automated qualitative in vitro diagnostic test for the direct detection and differentiation of Staphylococcus aureus (SA) DNA and methicillin- resistant Staphylococcus aureus (MRSA) DNA from nasal swabs in patients at risk for nasal colonization. The test utilizes real-time polymerase chain reaction (PCR) for the amplification of MRSA/SA DNA and fluorogenic target-specific hybridization probes for the detection of the amplified DNA. A negative result does not preclude nasal colonization. Authorizing ProviderResult TypeResult StatusCampbell Ortega [facility] MICROBIOLOGY - GENERAL ORDERABLESFinal ResultPerforming OrganizationAddressCity/State/ZIP Code Phone Number [facility] ([facility]) [address] [place] [address] * Protime-INR (12/07/2024 3:09 PM EDT)ComponentValueRef RangeTest MethodAnalysis TimePerformed AtPathologist LxlybetukQdrtdbu34.312.3 - 14.8 Ugdurnm2712/07/2024 4:[facility] PM [facility] ([facility])INR1.010.90 - 1.101 4:15 PM EDT [facility] ([facility])Comment: [facility] RECOMMENDED INR FOR WARFARIN THERAPY CONDITION ?INR PROPHYLAXIS OF VENOUS THROMBOSIS ? 2-3 (HIGH-RISK SURGERY) TREATMENT OF VENOUS THROMBOSIS ? 2-3 TREATMENT OF PULMONARY EMBOLISM ?2-3 PREVENTION OF SYSTEMIC EMBOLISM: ? 2-3 ?ACUTE MYOCARDIAL INFARCTION ?TISSUE HEART VALVES ?VALVULAR HEART DISEASE ?ATRIAL FIBRILLATION ?RECURRENT SYSTEMIC EMBOLISM MECHANICAL HEART VALVE ? 2.5-3.5 FROM: ORAL ANTICOAGULANTS. ??MECHANISM OF ACTION, CLINICAL EFFECTIVENESS, AND OPTIMAL THERAPEUTIC RANGE. ??CHEST 1995;108:231S-246S. Specimen (Source)Anatomical Location / LateralityCollection Method / Volume Collection TimeReceived TimeBloodVenous blood specimen / UnknownVenipuncture / Hfwtqwz3712/07/2024 3:09 PM EDT1 3:46 PM EDT Narrative Authorizing ProviderResult TypeResult StatusCampbell ARGUETA BLOOD ORDERABLESFinal ResultPerforming OrganizationAddressCity/State/ZIP CodePhone Number [facility] MICHAEL) [address] [place] [address] * APTT (12/07/2024 3:09 PM EDT)ComponentValueRef RangeTest MethodAnalysis Time Performed AtPathologist AtcpvmrnlzHVU10.625.0 - 35.0 Wodalqh1112/07/2024 4:16 PM [facility] ([facility])Comment:Clinical significance of the APTT is questionable in the presence of heparin.Specimen (Source)Anatomical Location / LateralityCollection Method / VolumeCollection TimeReceived TimeBloodVenous blood specimen / UnknownVenipuncture / Cazwqvj5812/07/2024 3:09 PM EDT1 3:46 PM EDT Narrative Authorizing ProviderResult TypeResult StatusCampbell ARGUETA BLOOD ORDERABLESFinal ResultPerforming OrganizationAddressCity/State/ZIP CodePhone Number [facility] ([facility]) [address] [place] [address] * Comprehensive metabolic panel (12/07/2024 3:09 PM EDT)ComponentValueRef Range Test MethodAnalysis TimePerformed AtPathologist XcgolgmhrAznwqc301584 - 145 mmol/L1 4:16 PM [facility] ([facility])Potassium3.83.5 - 5.1 mmol/L1 4:16 PM [facility] ([facility])Mmncihvh39914 - 107 mmol/L1 4:16 PM [facility] ([facility])AX38003 - 31 mmol/L 12/07/2024 4:16 PM [facility] ([facility])Anion Lkx070 - 20 mmol/L 12/07/2024 4:16 PM [facility] ([facility])NAZ191 - 25 mg/dL12/07/2024 4:16 PM [facility] ([facility])Creatinine0.730.60 - 1.20 mg/dL12/07/2024 4:16 PM [facility] ([facility])BUN/Creatinine Ratio15.110 4:16 PM [facility] ([facility])Uszkloj0147 - 100 mg/dL12/07/2024 4:16 PM EDT [facility] ([facility])Calcium9.58.6 - 10.3 mg/dL12/07/2024 4:16 PM [facility] ([facility])LWC9245 - 39 U/L1 4:16 PM [facility] ([facility])ALT (SGPT)297 - 52 U/L1 4:16 PM [facility] ([facility]) Alkaline Llihgmkfckw7396 - 104 U/L1 4:16 PM [facility] ([facility])Total Protein7.66.0 - 8.3 g/dL12/07/2024 4:16 PM [facility] ([facility])Albumin4.13.5 - 5.7 g/dL12/07/2024 4:16 PM [facility] ([facility])Total Bilirubin0.60.3 - 1.0 mg/dL12/07/2024 4:16 PM [facility] ([facility])eGFR98.3>60.0 mL/min/1.73m* 4:16 PM [facility] ([facility])Comment:[facility]???s estimated glomerular filtration rate (eGFR) will no [...] not disproportionately affect any one group of individuals.Specimen (Source) Anatomical Location / LateralityCollection Method / VolumeCollection Time Received TimeBloodVenous blood specimen / UnknownVenipuncture / Unknown 12/07/2024 3:09 PM EDT1 3:51 PM EDT Narrative Authorizing ProviderResult TypeResult StatusCampbell ARGUETA BLOOD ORDERABLESFinal ResultPerforming OrganizationAddressCity/State/ZIP CodePhone Number [facility] ([facility]) [address] [place] [address] documented in this encounter Visit Diagnoses Diagnosis Pre-op testing Unspecified pre-operative examination Clotting disorder Other and unspecified coagulation defects documented in this encounter Care Teams Team MemberRelationshipSpecialtyStart DateEnd Date Anastacia Ham MD [address] [facility] PCP - General09/27/21documented as of this encounter
--- OUTSIDE RECORDS SUMMARY | 2024-12-09 08:00 | XMS_ITS | Encounter Summary ---
Author Organization [facility] Address [id number] [address] [place] [address] Care Team Providers Care Balloon Maker Name Role Phone Anastacia Ham MD Primary Care Provider [phone] Encounter Details DateTypeDepartmentCare Team (Latest Contact Info)Xcceyzcupvn29/31/2025 9:00 AM EDTOffice Visit [facility] [address] [place] [address] Lyn Oleary MD [address] [place] [address] Mixed stress and urge urinary incontinence (Primary Dx); OAB (overactive bladder); Acute cystitis without hematuria Social History Tobacco UseTypesPacks/DayYears UsedDateSmoking Tobacco: FormerCigarettes0.326 1994 - mokeless Tobacco: NeverAlcohol UseStandard Drinks/WeekCommentsYes0 (1 standard drink = 0.6 oz pure alcohol)1 per monthPHQ-2AnswerDate RecordedTotal Hfryy2665ChildcareAnswerDate HiwwswddEuopaqupaSnvlsre65/12/2019Employment AnswerDate BvhgstfmCtvbsujfxeOiolcdq45/12/2019Hunger ScreeningAnswerDate RecordedWithin the past 12 months we worried whether our food would run out before we got money to buy more.Never True08/03/2024Within the past 12 months the food we bought just didn't last and we didn't have money to get more.Never True08/03/2024CommentsNoSex and Gender InformationValueDate RecordedSex Assigned at BirthNot on fileLegal ErnFmssbz38/06/2015 12:11 PM EDTGender IdentityNot on fileSexual OrientationNot on filedocumented as of this encounter Last Filed Vital Signs Vital SignReadingTime TakenCommentsBlood Npjbrlpc714/8010 9:15 AM EDT Pulse--Temperature--Respiratory Rate--Oxygen Saturation--Inhaled Oxygen Concentration--[place]258.4 kg (287 lb 6.4 oz)12/09/2024 9:15 AM NOOVunhyp998.1 cm (5' 10.5 )12/09/2024 9:15 AM EDTBody Mass Index40.6512/09/2024 9:15 AM EDT documented in this encounter Progress Notes * Lyn Oleary MD - 12/09/2024 9:00 AM EDT SUBJECTIVE Chief Complaint: 6 week postoperative visit HPI Ms. Keila Richardson is a , 54 y.o. female who is 5months s/p posterior repair and iliococcygeal suspension, and intra-detrusor Botox, performed on June 21, 2024 for stage II posterior compartment prolapse and urge urinary incontinence and overactive bladder. She did quite well postoperatively. Today, she returns with recurrence of urinary symptoms. Began to notice increased frequency and urgency in mid September. Now feels that she is back to baseline in terms of her incontinence and is using upto 6 pads per day. Of note, her urine was recently assessed by her primary care provider and revealed a Klebsiella UTI resistant only to cefazolin. This has yet to be treated. She is interested in moving forward with repeat intra detrusor Botox. Past Medical History: Diagnosis Date Blood test positive for human leukocyte antigen (HLA) B27 2021 Closed fracture of right distal femur (CMS-HCC) 08/11/2023 COVID 2021 Dizziness Eczema of both hands 08/11/2023 Elevated erythrocyte sedimentation rate 08/06/2023 Glaucoma 11/2023 Obesity has taken Metformin and Adapex Visual impairment glasses Past Surgical History: Procedure Laterality Date BREAST BIOPSY Right 11/12/2023 ultt biopsy benign BREAST BIOPSY Right 03/11/2024 ult biopsy benign BREAST LUMPECTOMY Right 03/17/2024 benign CYSTOSCOPY INJECTION BOTOX 100 UNITS N/A 06/21/2024 Performed by Lyn Oleary MD at [facility] FEMUR FRACTURE SURGERY Right 2020 FEMUR FRACTURE SURGERY Right 2021 HYSTERECTOMY 2009 partial ILIOCOCCYGEAL SUSPENSION N/A 06/21/2024 Performed by Lyn Oleary MD at [facility] KNEE ARTHROSCOPY Bilateral prior to replacement MAGNETIC SEED LOCALIZATION EXCISION/BIOPSY MASS BREAST Right 03/17/2024 Performed by Yari Alan MD at [facility] REPLACEMENT TOTAL KNEE Bilateral 2011 TOTAL HIP ARTHROPLASTY Left 2021 VAGINAL POSTERIOR REPAIR N/A 06/21/2024 Performed by Lyn Oleary MD at [facility] Current Outpatient Medications: ascorbic acid (VITAMIN C) 500 mg tablet, Take 2 tablets (1,000 mg total) by mouth in the morning., Disp: , Rfl: BOSWELLIA JORDIN EXTRACT ORAL, Take 1 capsule by mouth in the morning., Disp: , Rfl: cholecalciferol, vitamin D3, 50 mcg (2,000 unit) tablet,chewable, Chew 1 tablet and swallow in the morning., Disp: , Rfl: ibuprofen (ADVIL,MOTRIN) 200 mg tablet, Take 1 tablet (200 mg total) by mouth every 6 (six) hours as needed for pain., Disp: , Rfl: latanoprost (XALATAN) 0.005 % ophthalmic solution, Administer 1 drop to both eyes nightly., Disp: ,Rfl: magnesium oxide 200 mg magnesium tablet, Take 200 mg by mouth nightly as needed., Disp: , Rfl: metFORMIN (FORTAMET) 500 MG (OSM) 24 hr tablet, Take 1 tablet (500 mg total) by mouth Daily before evening meal. Takes for weight loss, Disp: , Rfl: nehqrsrk-lovf-WA-calcium &mins (THERAGRAN-M) 9 mg iron-400 mcg tablet, Take 1 tablet by mouth in the morning., Disp: , Rfl: omega 5-ecg-rzr-fish oil 100-400-1,000 mg capsule, Take 1 capsule by mouth in the morning. [place] 3 600 mg, d3 50 mg., Disp: , Rfl: phentermine (ADIPEX-P) 37.5 mg tablet, Take 1 tablet (37.5 mg total) by mouth every morning before breakfast., Disp: , Rfl: turmeric root extract 500 mg capsule, Take 1 capsule by mouth in the morning., Disp: , Rfl: zinc acetate 50 mg (zinc) capsule, Take 1 tablet by mouth in the morning., Disp: , Rfl: ALLERGIES Tape [adhesive] OBJECTIVE VITAL SIGNS BP 132/80 Ht 179.1 cm (5' 10.5 ) Wt 130.4 kg (287 lb 6.4 oz) BMI 40.65 kg/m?? PHYSICAL EXAM Constitutional: General: She is not in acute distress. ASSESSMENT/PLAN ICD-10-CM 1. Mixed stress and urge urinary incontinence N39.46 2. OAB (overactive bladder) N32.81 3. Acute cystitis without hematuria N30.00 We will proceed with treatment for her Klebsiella UTI. Bactrim DS sent to her pharmacy. She understands that some of her urinary symptoms may improve with treatment of the urinary tract infection alone. Regardless, she would like to move forward with scheduling her repeat intra detrusor Botox because she would like this done before the end of the year if at all possible. We reviewed the risks and benefits of intra-detrusor botulinum toxin injection therapy at length. Short-term risks include blood in the urine, urinary infection, and discomfort during the procedure.Onset of action is generally within 7-10 days. The effects typically last 6-12 months at which timeanother injection is required in order to maintain efficacy. There is a 5-10% risk of urinary retention requiring clean intermittent self cath following injection. Risk is higher with the 200U dose. Retention will improve as the Botox wears off. There is potential for anti-body development and decreased efficacy with repeated use. Plan: Cystoscopy with injection of 100 units of intra detrusor Botox. This chart note was put together with the assistance of a speech recognition program. While intending to generate a timely document that accurately reflects the contents of the visit, no guarantee can be provided that every grammatical or spelling mistake has been or will be identified or corrected. Thank you for your understanding when reviewing this and similarly generated notes. documented in this encounter Plan of Treatment DateTypeDepartmentCare Team (Latest Contact Info)Uehllcysjsw19/16/2025 8:30 AM ESTSupport Visit [facility] On [address] [address] 02/07/2025 8:00 AM ESTHospital Encounter [facility] Surgery [facility] [address] [place] [address] [address] [place] [address] Lyn Oleary MD [address] [address] 02/07/2025 8:00 AM EST - 02/07/2025 8:[address] [address] Lyn Oleary MD [address] [address] CYSTOSCOPY INJECTION BOTOX [25380 (CPT??) +1 more]02/20/2025 11:30 AM ESTOffice Visit [facility] [address] [place] [address] Lyn Oleary MD [address] [place] [address] NamePriorityAssociated DiagnosesDate/TimeCYSTOSCOPY INJECTION BOTOX OAB (overactive bladder) Mixed stress and urge urinary incontinence 02/07/2025 8:00 AM ESTdocumented as of this encounter Visit Diagnoses Diagnosis Mixed stress and urge urinary incontinence- Primary Mixed incontinence urge and stress (male)(female) OAB (overactive bladder) Acute cystitis without hematuria OAB (overactive bladder) Mixed stress and urge urinary incontinence Mixed incontinence urge and stress (male)(female) documented in this encounter Additional Health Concerns AssessmentNoted TimePHQ-9 Depression Total Score: 11:39 AM EST documented as of this encounter Care Teams Team MemberRelationshipSpecialtyStart DateEnd Date Anastacia Ham MD [facility] [place] [address] PCP - GeneralFamily Medicine10/29/23documented as of this encounter
--- OUTSIDE RECORDS SUMMARY | 2024-12-12 09:29 | XMS_ITS | Encounter Summary ---
Author Organization [facility] Address [address] [place] [address] Care Team Providers Care Dairy Associate Name Role Phone Anastacia Ham MD Primary Care Provider Reason for Visit * Auth/Cert (Routine)SpecialtyDiagnoses / ProceduresReferred By ContactReferred To Contact Diagnoses Rotator cuff tear arthropathy of right shoulder Rotator cuff tear arthropathy of right shoulder [M75.101, M12.811] Procedures MS ARTHROPLASTY GLENOHUMERAL JOINT TOTAL SHOULDER REVERSE TOTAL SHOULDER ARTHROPLASTY Campbell Ortega MD [address] [place] [phone] Phone: tel: fax: [facility] Main Operating Room [address] [place] [address] Phone: tel: fax: Referral IDStatusReasonStart DateExpiration DateVisits RequestedVisits [id number] Encounter Details DateTypeDepartmentCare Team (Latest Contact Info)Thvcqkyhimn06/03/2025 9:29 AM EST - 12/12/2024 2:20 PM ESTHospital Encounter [facility] Room [address] [place] [address] Campbell Ortega MD [address] [place] [phone] Status post reverse arthroplasty of shoulder, right (Primary Dx) Discharge Disposition: Home or Self Care () Social History Tobacco UseTypesPacks/DayYears UsedDateSmoking Tobacco: FormerCigarettesQuit: mokeless Tobacco: Never Tobacco Cessation:Counseling Given: Not Answered Alcohol UseStandard Drinks/WeekCommentsYes0 (1 standard drink = 0.6 oz pure alcohol)BEER EVERY COUPLE WEEKSPHQ-2AnswerDate RecordedPatient Health Questionnaire-2 [id number] Safety & EnvironmentAnswerDate RecordedFear of Current or Ex-PartnerNot on file04/02/2023Emotionally AbusedNot on file 04/02/2023hysically AbusedNot on file04/02/2023Sexually AbusedNot on file 04/02/2023hysically or Sexually AbusedNot on file04/02/2023CommentsNo Sex and Gender InformationValueDate RecordedSex Assigned at BirthFemale 11/11/2024 11:30 AM EDTLegal ZscJtpfas85/29/2022 10:52 PM EDTGender Identity Dytoco9911/16/2024 8:23 AM EDTSexual OrientationHeterosexual or Tmpyqayo89/08/2025 8:23 AM EDTdocumented as of this encounter Last Filed Vital Signs Vital SignReadingTime TakenCommentsBlood Ebnqnjjl817 2:10 PM EST Sampu447212/12/2024 2:10 PM XONTxwbjbhypbh75.4 ??C (97.5 ??F)12/12/2024 1:09 PM ESTRespiratory Btxt112302/12/2024 2:10 PM ESTOxygen Ehavzhgtni53%12/12/2024 2:10 PM ESTInhaled Oxygen Concentration--Xjhnyp795 kg (287 lb 4.2 oz)12/12/2024 10:10 AM TTXCzphks656.3 cm (5' 11 )12/12/2024 10:10 AM ESTBody Mass Index40.06 12/12/2024 10:10 AM ESTdocumented in this encounter Functional Status * QuestionAnswerDate of LfzibjzjayUjftoaGN961/ 2:10 PM Jenniffer Garrido, EFXnvzi7988/03/2025 2:10 PM Jenniffer Garrido RNHeart Rate Source Hwvmccp4712/12/2024 1:25 PM Francesco Carranza RNPatijen KixikidvDsjju64/03/2025 1:09 PM Jenniffer Garrido, JOSE DE JESUS * Obed ScaleQuestionAnswerDate of AssessmentAuthorBraden No Risk Interventions Continue to assess patient according to level of care12/12/2024 10:11 AM Dorothy Gil, RNSensory Embajzisonx255/03/2025 10:11 AM Dorothy Montalvo, JOJqeeufiq131/03/2025 10:11 AM Dorothy Allison, RN Imwhrfwg251/03/2025 10:11 AM Dorothy Allison, MKWzpdvwpl882/03/2025 10:11 AM Dorothy Allison, JTAouywzsdn096/03/2025 10:11 AM Dorothy Montalvo, RNFriction and Vayht73302/12/2024 10:11 AM Dorothy Allison RNBraden Scale Mbiiu7752/03/2025 10:11 AM Dorothy Allsion, RN * Pain Assessment TimerQuestionAnswerDate of AssessmentAuthorRestart Pain Assessment SvngzYko89/03/2025 2:10 PM Jenniffer Garrido, JOSE DE JESUS * Sepsis Model ScoresQuestionAnswerDate of AssessmentAuthorEarly Detection of Sepsis Score1.8102/12/2024 2:15 PM ESTChronicles, Batchq * Pain AssessmentQuestionAnswerDate of AssessmentAuthorPain LocationShoulder 12/12/2024 1:55 PM Cal Carranzaer, RNPain NcjzlmmgieoDhvcc28/03/2025 1:55 PM Joan Carranzancer, RNPain InterventionsMedication (See MAR)12/12/2024 1:55 PM Cal Carranzaer RNPain DxsfvktwkpsMahluf81/03/2025 1:55 PM Joan Carranzancer, RNPain FrequencyConstant/ddmjcskiye33/03/2025 1:55 PM Francesco Carranza RNPatient's Stated Pain Zocs64702/12/2024 2:10 PM Jenniffer Garrido RNRamsay Scale (RS): Zubts36102/12/2024 10:11 AM Dorothy Allison RNPain TypeSurgical pain12/12/2024 1:55 PM Francesco Carranza RNPain Rbqrp45202/12/2024 1:55 PM Francesco Carranza RNPain AssessmentNo/denies pain12/12/2024 2:10 PM Jenniffer Garrido RN * Fall RiskQuestionAnswerDate of AssessmentAuthorOne or more falls in the last year:No12/07/2024 2:00 PM Nazanin Faith MAFeels unsteady when walkin 12/07/2024 2:00 PM Nazanin Faith MA * Head, Ears, Eyes, Nose, and Throat (HEENT)QuestionAnswerDate of Assessment AuthorHead, Ears, Eyes, Nose, and Throat (WDL)WDL102/12/2024 2:10 PM Jenniffer Santillan RN * QuestionAnswerDate of AssessmentAuthorSlingRemains in place12/12/2024 1:55 PM Francesco Carranza RNMiscellaneous DevicesSling;ABductor aiasyc9512/12/2024 2:10 PM Jenniffer Garrido RN * Vital SignsQuestionAnswerDate of LpaxaopxqjLirtpmSC756/6912/12/2024 2:10 PM Jenniffer Garrido, KRSyzm47. 1:09 PM Jenniffer Garrido RNTemp xjnLwkpnlnq59/03/2025 1:09 PM Jenniffer Garrido, TXZenoq5620/03/2025 2:10 PM Jenniffer Garrido NBThqt7135/03/2025 2:10 PM Jenniffer Garrido, OLInG025 12/12/2024 2:10 PM Jenniffer Garrido RNHeart Rate CaffztVhzagpb89/03/2025 1:25 PM Francesco Carranza RNBP LocationLeft arm12/12/2024 1:09 PM Jenniffer Santillan RNBP ArtilmWltxluiji91/03/2025 1:09 PM Jenniffer Garrido RNMAP (mmHg)80102/12/2024 2:10 PM Jenniffer Garrido RNPulse rate from Plethysmogram (bpm)8812/12/2024 2:10 PM Jenniffer Garrido RNPatient MqjnzutkXkbcj89/03/2025 1:09 PM Jenniffer Garrido RN * QuestionAnswerDate of AssessmentAuthorLevel of ConsciousnessResponds to voice 12/12/2024 1:40 PM Francesco Carranza RN * QuestionAnswerDate of AssessmentAuthorCardiac AltxbvNPK64/03/2025 1:40 PM Francesco Sauceda RNCardiac BpvhzkgagoZjipfuh27/03/2025 1:40 PM Francesco Carranza RNHeart SoundsS1, S212/12/2024 1:40 PM Francesco Carranza RN * GastrointestinalQuestionAnswerDate of AssessmentAuthorGastrointestinal (WDL) WDL102/12/2024 2:10 PM Jenniffer Garrido, RNAbdomen Inspection Soft;Nyepjyetuxke82/03/2025 1:40 PM Francesco Carranza RNGastrointestinal YunmdueiNtuh20/03/2025 1:55 PM Francesco Carranza RN * Peripheral VascularQuestionAnswerDate of AssessmentAuthorPeripheral Vascular (WDL)WDL102/12/2024 2:10 PM Jenniffer Garrido RN * MusculoskeletalQuestionAnswerDate of AssessmentAuthorRUELimited movement 12/12/2024 2:10 PM Jenniffer Garrido RNRLEFull anvojpsl96/03/2025 2:10 PM Jenniffer Garrido RNLUEFull lwnimodw54/03/2025 2:10 PM Jenniffer Garrido RNLLEFull gmeweomp30/03/2025 2:10 PM Jenniffer Garrido RNMusculoskeletal (WDL)X102/12/2024 2:10 PM Jenniffer Garrido RN * PsychosocialQuestionAnswerDate of AssessmentAuthorPsychosocial (WDL)WDL 12/12/2024 10:11 AM Dorothy Allison, RN * Obed ScaleQuestionAnswerDate of AssessmentAuthorBraden No Risk Interventions Continue to assess patient according to level of care12/12/2024 10:11 AM Dorothy Gil, RNSensory Uxmhngzywnv416/03/2025 10:11 AM Dorothy Montalvo, EXMkbqlszf650/03/2025 10:11 AM Dorothy Allison, RN Ytqehbjj065/03/2025 10:11 AM Dorothy Allison, CVZvbgqyat166/03/2025 10:11 AM Dorothy Allison, KSOqiyrnkgi983/03/2025 10:11 AM Dorothy Montalvo, RNFriction and Atlwq53102/12/2024 10:11 AM Dorothy Allison RNBraden Scale Nnsft2087/03/2025 10:11 AM Dorothy Allison, RN * RespiratoryQuestionAnswerDate of AssessmentAuthorBilateral Breath Sounds Anterior;Clear12/12/2024 1:40 PM Francesco Carranza RNRespiratory Pattern Lzqfyr4512/12/2024 1:40 PM Francesco Carranza RNChest AssessmentSymmetrical 12/12/2024 1:40 PM Francesco Carranza RNRespiratory (WDL)WDL102/12/2024 2:10 PM Jenniffer Garrido RNRespiratory LtgdciNcfqygnah89/03/2025 1:09 PM Francesco Carranza RNRespiratory Depth/KsdtrcPytheez20/03/2025 1:09 PM Francesco Carranza RNBreath SoundsBilateral breath trsyhu8512/12/2024 1:09 PM Francesco Carranza RN * GenitourinaryQuestionAnswerDate of AssessmentAuthorGenitourinary (WDL)WDL 12/12/2024 2:10 PM Jenniffer Garrido RN * NeurologicalQuestionAnswerDate of AssessmentAuthorNeuro (WDL)WDL102/12/2024 10:11 AM Dorothy Allison, JOSE DE JESUS * QuestionAnswerDate of ChpovhoxruTneikyFGJO2095/03/2025 1:03 PM ESTInterface, Device In * Pain AssessmentQuestionAnswerDate of AssessmentAuthorPain LocationShoulder 12/12/2024 1:55 PM ESTTalatrbCal vaner RNPain JmymwtotewvUzmkl17/03/2025 1:55 PM ESTTalatrbyJoanFrancesco, RNPain InterventionsMedication (See MAR)12/12/2024 1:55 PM ESTTalatrbyJoanFrancesco, RNPain BecwkyqmoskMdpuee70/03/2025 1:55 PM ESTTalatrbyCaler, RNPain FrequencyConstant/uqsyzijlti55/03/2025 1:55 PM Francesco Carranza RNPatient's Stated Pain Lmvn49202/12/2024 2:10 PM Jenniffer Garrido RNRamsay Scale (RS): Trrfe14302/12/2024 10:11 AM Dorothy Allison RNPain TypeSurgical pain12/12/2024 1:55 PM Francesco Carranza RNPain Urszd72602/12/2024 1:55 PM Cal Carranzaer RNPsumit AssessmentNo/denies pain12/12/2024 2:10 PM Jenniffer Garrido RN * Pain AssessmentQuestionAnswerDate of AssessmentAuthorPain Assessment0-10 12/07/2024 2:00 PM Nazanin Faith MA * [place] Suicide Severity Rating ScaleQuestionAnswerDate of AssessmentAuthor1. Have you wished you were or wished you could go to sleep and not wake up? No12/12/2024 10:15 AM Dorothy Allison, JOSE DE JESUS2. Have you actually had any thoughts of killing yourself?No12/12/2024 10:15 AM Dorothy Allison, RN 6. Have you ever done anything, started to do anything, or prepared to do anything to end your life?No12/12/2024 10:15 AM Dorothy Allison RN * Risk of SuicideAnswerDate of AssessmentAuthorNo Risk12/12/2024 10:15 AM Dorothy Gil RN * QuestionAnswerDate of AssessmentAuthorSkin ColorAppropriate for race12/12/2024 2:10 PM Jenniffer Garrido RNSkin Condition/TempWarm;Dry12/12/2024 2:10 PM Jenniffer Garrido RNSkin IntegrityOther (Comment)12/12/2024 2:10 PM Jenniffer Santillan RN * Modified AldreteQuestionAnswerDate of LzhbderiinKmlgdaUxzoofzo516/03/2025 2:10 PM Jenniffer Garrido RNRespiration 2:10 PM Jenniffer Garrido RNCirculation 2:10 PM Jenniffer Garrido RNConsciousness2 12/12/2024 2:10 PM Jenniffer Garrido RNOxygen Vntnvdzgqk126/03/2025 2:10 PM Jenniffer Garrido RN * Modified Phong ScoreAnswerDate of KnnqqyhjtvIppcod150/03/2025 2:10 PM Jenniffer Santillan RN documented as of this encounter Mental Status * Modified AldreteQuestionAnswerEntry NreoBuvsmnAnmyiogf892/03/2025 2:10 PM Jenniffer Santillan RNRespiration 2:10 PM Jenniffer Garrido RN Shfmfhnujtc388/03/2025 2:10 PM Jenniffer Garrido RNConsciousness 2:10 PM Jenniffer Garrido RNOxygen Nkwpveujfx788/03/2025 2:10 PM Jenniffer Santillan RN * Modified Phong ScoreAnswerEntry AhhdHnmsey680/03/2025 2:10 PM Jenniffer Garrido RN documented in this encounter Medications at Time of Discharge [...] (OMEGA 3-6-9 ORAL) Take by mouth. HYDROcodone-acetaminophen ([place]) 5-325 mg tablet Indications:Status post reverse arthroplasty [...] daily. TURMERIC ORAL Take by mouth. WITH GINGERdocumented as of this encounter H&P Notes * Campbell Ortega MD - 12/12/2024 9:42 AM EST H&P reviewed. The patient was examined and there are no changes to the H&P. Dr. Campbell Ortega MD [facility] Director Of Radiology orthopedic surgery Adult Reconstruction and Trauma [facility]. Source Note - Campbell Ortega MD - 11/16/2024 8:45 AM EDT Images from the original note were not included. Orthopaedic Surgery Subjective Follow-up of the Left Hip and Pain of the Right Shoulder 11/16/24 Keila Richardson is a 54 y.o. female presenting for follow up of left hip and right shoulder pain. She has a history of left posterolateral total hip arthroplasty using [place] dual mobility implants on 11/27/21. She has been doing well and continues to perform her PT exercises at home. She also reports significant right shoulder pain. She states she first began to have difficulty with her right shoulder after falling in August 2023. Her symptoms have worsened over the last three months. Her pain radiates into her right hand and into the right side of her neck. She has associated right shoulder weakness and decreased range of motion due to pain. She denies numbness or tingling. She has tried PT exercises, motrin, ice, and tylenol without relief. She cannot have steroid injections due to history of glaucoma. She also notes she has had intermittent right hip pain over the last year. 03/14/22 Keila Richardson is a 51 y.o. female presenting for follow-up of Left hip joint posterolateral total hip arthroplasty using [place] dual mobility implants on 11/27/21. States that [...] periods of time. They began after her lefttotal hip arthroplasty. She is still able to ambulate without too much difficulty. She is doing therapy for her left hip at the moment. History Surgical History[1] Medical History[2] Objective General: There is no height or weight on file to calculate BMI. No acute distress, comfortable, breathing comfortably at normal rate, extremities warm and well perfused Lumbosacral spine and bilateral lower extremities examined including the hip left Hip: non-tender Incisions of the hip joints are healed well bilateral. Hip ROM: Full, painless ROM Strength: Hip Flexion 5/5 Hip Extension 5/5 Hip Abduction 5/5 Hip Adduction 5/5 Knee Flexion 5/5 Knee Extension 5/5 Sensation: intact over superficial peroneal, deep peroneal and tibial nerve distributions Hip Special Tests: None performed Right Hip: Left hip incision healed well and her hip arthroplasty. non-tender Hip ROM: Internal Rotation 15?? External Rotation 35?? Flexion 120?? Strength: Hip Flexion 5/5 Hip Extension 5/5 Hip Abduction 5/5 Hip Adduction 5/5 Knee Flexion 5/5 Knee Extension 5/5 Sensation: intact over superficial peroneal, deep peroneal and tibial nerve distributions Hip Special Tests: Log Roll - not painful Gait: normal \Cervical spine and bilateral upper extremities examined compared, Right Shoulder: Patient has signs of cervical adenopathy which are minimal but has bilateral shoulder DJD. Right side is worse than left side along with global tenderness. Minor wasting of the shoulder girdle muscles noted. Severe li mitations of the right shoulder range of motion passive as well as active noted secondary to rotator cuff tear arthropathy. Inspection- no ecchymosis, no edema, no winging, no atrophy Tender to palpation over lateral aspect of glenohumeral joint, otherwise non-tender Shoulder ROM: Significantly decreased ROM due to pain Strength: Flexion 2/5 Abduction 2/5 External Rotation 2/5 Internal Rotation 2/5 Sensation: intact from C4-T1 dermatomes Stability: Stable to anterior and posterior loading Shoulder Special Tests : Not Applicable Spurling's: Negative Imaging X-ray of the left pelvis and hip in office today 11/16/2024: Hardware intact without significant change. X-ray shows left primary hip arthroplasty which is well aligned well-fixed without any complicating process. The details were shown and explained to the patient. Patient also has intramedullary nail on the right femur from her previous femoral fracture and bilateral total knee arthroplasty. Images of R shoulder from September 2023 at [facility] were also reviewed: Near complete rotator cuff [...] Keila Richardson is a 54 y.o. female with Primary osteoarthritis of left hip status post left primaryhip arthroplasty 3 years ago She had left posterolateral total hip arthroplasty on 11/27/21 and is doing well. She has occasional right hip pain that we discussed was due to the nail in her right femur causing inflammation of the surrounding tendons. She has a near complete right rotator cuff tear after a fall in August 2023 with worsening R shoulder pain over the last few months. Conservative measures have not helped her shoulder and she wishes to pursue shoulder replacement. Discussed with the patient that due to her rotator cuff tear, reverse shoulder replacement is indicated. Offered referral to Orthopedic-sports with Dr. Perez or Dr. Isaacs for possibility of cuff repair, but patient declined. She would like to pursue reverse shoulder replacement due to her current symptoms significantly interfering with daily life. Risks and benefits were discussed with the patient including the following which are but not restricted to bleeding, infection, [...] and other indicated procedures with the sports o rthopedics team which she declined at this point in time. Patient is agreeable and will schedule with her PCP for pre-op clearance. We will obtain x-rays of the left shoulder when she comes back since she also has degenerative disease in the left shoulder with pain. Patient will continue with her weight loss [...] ibuprofen, tylenol as needed to control pain -Will obtain XR of left shoulder at next visit -Return to clinic after obtaining pre-op clearance Considerable time was pending explained to the patient the nature of the problem and treatment options of each. Patient understands the nature of the problem and treatment options. Nonsurgical options were also discussed including cortisone injection in the shoulder and continuation of her physicaltherapy which she has also tried. Chon Dinero, MS3 Orthopaedic Surgery 11/16/24 10:17 AM By using the attestations below, the signing clinician agrees that I have read and verify that thedocumentation has been personally reviewed by me and ensure that the documentation accurately reflects the encounter. GC: I personally saw this patient on the day of the encounter, performed the ayala portion(s) of the service and participated in the management and confirm the medical student's documentation. Please note there may be an additional personal documentation from me. Dr. Campbell Ortega MD MR[facility]d Director Of Radiology orthopedic surgery Adult Reconstruction and Trauma [facility]. [1] Past Surgical History: Procedure Laterality Date CT CHEST ANGIOGRAM W AND/OR WO IV CONTRAST 11/28/2021 CT CHEST ANGIOGRAM W AND/OR WO IV CONTRAST 11/28/[address] [facility] [address] IMAGING FEMUR FRACTURE SURGERY Left X2 HYSTERECTOMY KNEE ARTHROPLASTY Bilateral KNEE ARTHROSCOPY W/ DEBRIDEMENT Bilateral PARTIAL HYSTERECTOMY [2] Past Medical History: Diagnosis Date Fractures Osteoarthritis Seasonal allergies * Campbell Ortega MD - 12/12/2024 9:42 AM EST H&P reviewed. The patient was examined and there are no changes to the H&P. Dr. Campbell Ortega MD [facility] Director Of Radiology orthopedic surgery Adult Reconstruction and Trauma [facility]. Source Note - Campbell Ortega MD - 12/07/2024 2:45 PM [...] of R shoulder from September 2023 at [facility] were also reviewed: Near complete rotator cuff [...] to Orthopedic-sports with Dr. Perez or Dr. Isaasc for possibility of cuff repair, but patient [...] test performed by another physician/other qualified health care giver (not separately reported); OR []Discussion of management or test interpretation with external physician/other qualified health care giver/appropriate source (not separately reported) High risk of [...] from me. Dr. Campbell Ortega MD [facility] Director Of Radiology orthopedic surgery Adult Reconstruction and Trauma [facility]. [1] Past Surgical History: Procedure Laterality Date CTA CHEST W IV CONTRAST 11/28/2021 CT CHEST ANGIOGRAM W AND/OR WO IV CONTRAST 11/28/[address] [facility] [address] IMAGING FEMUR FRACTURE SURGERY Left X2 HIP ARTHROPLASTY HYSTERECTOMY KNEE ARTHROPLASTY Bilateral KNEE ARTHROSCOPY W/ DEBRIDEMENT Bilateral PARTIAL HYSTERECTOMY [2] Past Medical History: Diagnosis Date Adverse effect of anesthesia MOM HX DELAYED EMERGENCE Fractures Osteoarthritis Rotator cuff tear arthropathy of right shoulder Seasonal allergies documented in this encounter Miscellaneous Notes * Anesthesia Transport Note - WOODY Winter - 12/12/2024 1:10 PM EST Patient: Keila Richardson Procedure Summary Date: 12/12/24 Room / Location: [facility] OPERATING ROOM 02 / [facility] Operating Room Anesthesia Start: 1037 Anesthesia Stop: Procedure: REVERSE TOTAL SHOULDER ARTHROPLASTY (Right: Shoulder) Diagnosis: Rotator cuff tear arthropathy of right shoulder Glenohumeral arthritis, right Osteoporosis without pathological fracture Class 3 obesity (CMS/HCC) (Rotator cuff tear arthropathy of right shoulder [M75.101, M12.811]) Surgeons: Campbell Ortega MD Responsible Provider: Lissette Garcia MD Anesthesia Type: general, regional ASA Status: 3 Anesthesia Post Transport Note Transport to: PACU O2 Route: face mask Oxygen Flow (L/min): 8 Patient Monitor: direct observation Transport: uneventful Patient condition is: stable * Op Note - Campbell Ortega MD - 12/12/2024 10:41 AM EST REVERSE TOTAL SHOULDER ARTHROPLASTY (R) Operative Note Date: 12/12/2024 Location: [facility] OR Name: Keila Richardson, : 1970, Diagnosis Pre-op Diagnosis * Rotator cuff tear arthropathy of right shoulder [M75.101, M12.811] * Glenohumeral arthritis, right [M19.011] * Osteoporosis without pathological fracture [M81.0] * Class 3 obesity (CMS/HCC) [E66.813] Post-op Diagnosis * Rotator cuff tear arthropathy of right shoulder [M75.101, M12.811] * Glenohumeral arthritis, right [M19.011] * Osteoporosis without pathological fracture [M81.0] * Class 3 obesity ([facility]) [E66.813] Procedures REVERSE TOTAL SHOULDER ARTHROPLASTY 43353 - MS ARTHROPLASTY GLENOHUMERAL JOINT TOTAL SHOULDER Reverse Total Shoulder Arthroplasty #1 Right reverse total shoulder arthroplasty using Biomet noncemented implants #2 Superficial and deep venous closure for right reverse total shoulder arthroplasty arthrotomy. Hardware used: Biomet comprehensive reverse shoulder glenosphere mini baseplate with taper adapter porous plasma/uncemented 25 mm. Biomet comprehensive reverse shoulder central screw 6.5 x 35 mm length Biomet comprehensive reverse shoulder screw 4.75 x 30 mm, 3.5 mm hexagonal fix locking screw Biomet comprehensive reverse shoulder mini standard thickness +3 mm taper offset 40 mm humeral tray, cobalt chrome molybdenum. Biomet comprehensive reverse shoulder 4.75 x 30 mm nonlocking screw 3.5 mm hexagonal. Biomet comprehensive reverse shoulder glenosphere, use with taper adapter, 36 mm of curve standard. Biomet comprehensive reverse shoulder 4.75 mm x 20 mm, fixed locking screw, 3.5 mm hexagonal. Biomet comprehensive reverse shoulder, 4.75 x 20 mm length, 3.5 mm hexagonal fixed locking screw. Biomet complaints of shoulder system, mini humeral stem, 11 mm, 83 mm long. Biomet comprehensive reverse shoulder system, prolonged, highly cross-linked polyethylene liner standard bearing, 36 mm diameter. #2 FiberWire x 3 used for suturing the rotator cuff interval and closure of the fracture fragments using the proximal humeral drill bit for drilling into the proximal humeral shaft metaphysis. Surgeons Primary: Campbell Ortega MD Resident - Assisting: Jose Antonio Randolph MD Rufus MSY3 Procedure Summary Anesthesia: General ASA: III Anesthesiologist Dr. Jose WONG Estimated Blood Loss: 150 mL Local anesthesia infiltrated 0.25% Marcaine and 1% lidocaine total 60 mL injected in the periarticular tissue. Total IV Fluids: Please see anesthesia chart mL Drains: * None in log * Implants Type Name Action Serial No. Total Joint BASEPLATE,COMP RVS,25MM - [id number] Implanted Total Joint GLENOID,36M,COMP,SHLDR,STD - [id number] Implanted Screw SCREW,6.5M,COMP,CNTRL,ST/RST,3 - [id number] Implanted Screw SCREW,3.5M, NON LCK,HEX4.75X35 - [id number] Implanted Screw SCREW,3.5M,LCK,HEX4.75X20,ST - [id number] Implanted Screw SCREW,3.5M,LCK,HEX4.75X20,ST - [id number] Implanted Screw SCREW,3.5M, NON LCK,HEX4.75X35 - [id number] Implanted Total Joint MINI HUMERAL STEM Implanted Total Joint CUP,HUMERAL,36M - [id number] Implanted Plate TRAY,HUMERAL,40X+3MM - [id number] Implanted Staff: Electric Deicer Inspector: Richard Langford RN Relief Electric Deicer Inspector: Hallie Bowen RN Relief Scrub: Monique Fabian CST Scrub Person: Mariangel Vides Indications: Keila Richardson is an 54 y.o. female who is having surgery for Rotator cuff tear arthropathy of right shoulder [M75.101, M12.811]. She also reports significant right shoulder pain. She states she first began to have difficulty with her right shoulder after falling in August 2023. Her symptoms have worsened over the last three months. Her pain radiates into her right hand and into the right side of her neck. She has associated right shoulder weakness and decreased range of motion due to pain. She denies numbness or tingling. She has tried PT exercises, motrin, ice, and tylenol without relief. She cannot have steroid injections due to history of glaucoma. She also notes she has had i ntermittent right hip pain over the last year. X-ray of the left shoulder in office [...] of R shoulder from September 2023 at [facility] were also reviewed: Near complete rotator cuff [...] The details were explained to the patient. MRI Scan right shoulder :near complete right [...] possibility of cuff repair, but patient declined. At this time, given the failure of conservative therapy and other noted indications for surgery, werecommend right shoulder reverse total shoulder arthroplasty, and the patient is understanding and agreeable. She would like to pursue reverse shoulder [...] risks patient wishes to proceed with surgery. Procedure Details: The patient was seen in the preoperative area. The risks, benefits, complications, treatment options, non-operative alternatives, expected recovery and outcomes were discussed with the patient. The possibilities of reaction to medication, pulmonary aspiration, injury to surrounding structures, bleeding, recurrent infection, the need for additional procedures, failure to diagnose a condition, and creating [...] Venous thrombosis prophylaxis have been ordered including bilateral sequential compression devices Findings: Moderate glenohumeral osteoarthritis noted mainly on the glenoid side along with osteophytosis and labral tear complex noted around the shoulder. Osteophytosis around the humeral head and proximal migration of the humeral head suggestive of severe rotator cuff tear arthropathy. #3 Degeneration with superior bone loss of the glenoid with bone loss centrally. Osteoporosis noted throughout the humerus as well as the glenoid. Care was taken not to take too much bone so as to maintain overall subchondral bone. Details of the procedure: The patient was met by anesthesia in the holding area had received a block of the right shoulder. This was then followed by taking the patient to the [facility] and placed insupine position. Following this he had general anesthesia by Dr. Jose WONG anesthesiology. This then followed by intubation followed by positioning the patient on the table using neck immobilizer andmodified beach chair position. This then followed by right upper extremity and shoulder prepped anddraped in the normal standard sterile fashion using Hibiclens counterpoint and alcohol. This was followed by IV antibiotics within an hour of the incision. Timeout was done as per standard protocol. The deltopectoral interval and the incision was marked in the deltopectoral interval measuring about 10 cm starting from the coracoid process extending into the anterolateral aspect into the deltopectoral groove. This was then followed by using a #15 blade we made a longitudinal incision this was deepened in layers. We identified the cephalic vein and this was retracted medially. This was then followed by identifying the conjoined tendon which was maintained medially. We dissected using blunt dissection onto the deltoid using the finger dissection. This was then followed by breaking the ideations and placement of a deltoid retractor. This was then followed by identifying the humeral head and the Bovie cautery was used to make a incision into the remnant rotator cuff interval and this was deepened to identify the humeral head and the humeral head was dislocated by adduction extension andexternal rotation. Passive tear of the cuff noted with retraction of the supraspinatus as well as the infraspinatus noted with biceps tendon fraying and lift off from the labrum. We use a FiberWire #2 which was used to tag the subscapularis on the lesser tuberosity. This was lifted off the lesser tuberosity and retracted. This was then followed by placement of posterior and anterior retractors inthe form of document retractors. We identified the humeral head which was completely distorted and f lattened along with large osteophytes. The osteophytes were removed using a rongeur. We then proceeded with the canal finder and T-handle and identified the humeral canal. This was then followed by gradually increasing the reaming of the medullary canal of the humerus by gradually increasing the reaming to a maximum size 11. We then proceeded with making humeral osteotomy using thesaw and a freehand technique protecting the soft tissue around it by using the saw. This was followed by identifying the glenoid and anterior posterior glenoid retractors were placed. There was severe debris noted which was washed out. The anterior inferior nonunion of the glenoid was excised as this was mobile. The fibrous nonunion of the fibrous tissue was completely excised as well as the degenerated labrum. We then marked our glenoid axis as well as the equator. This was then followed by using the glenoid drill guide we drilled the glenoid central wire at about 11 degrees of inferior tilt. We then proceeded with reaming to the glenoid and a nice smiley face Reaming was achieved. We then removed our osteophytes anterior posterior and inferior. This was then followed by breaking out our standard glenoid mini baseplate measuring 25 mm we malleted this onto the glenoid. This then followed by placement of a central screw which measured 35 mm. This was the deep down with good fixation into the bone. We then placed superior compression screw measuring 35 mm length and inferior [id number] mm. We then placed anterior 20 mm locking screw as well as posterior 20 mm locking screw. We were happy with our final glenoid fixation, and this was solid all throughout. We then washed out the glenoid with cups of normal saline. There was no impinging soft tissue. We then broke out our final standard glenoid and without 2.5 mm inferior offset we malleted this into the glenoid and this had a good fixation. This was double checked to have good locking. We were happy with the final glenoid preparation. We then turned our attention to our humeral preparation. We then delivered the humerus into the wound by adduction and extension and external rotation. We prepared the humerus by using the mini broach handles for [employer]. We gradually increased our broaching from size 8 gradually to size 11 mm with 83 mm comprehensive shoulder system was malleted and which was found to be adequate. We were happy with our humeral fixation. We then trialed with size standard +3 and we were happy with our comprehensive reverse shoulder system prolonged highly cross-linked polythene +3 mm thickness, 36 mm diameter and a comprehensive reverse shoulder system mini humeraltray standard thickness, +3 mm taper offset and 40 mm diameter. This was then broken out and lockedonto the back table. We then malleted this onto the humeral baseplate and onto the mini humeral stem and this was confirmed locking. We were happy with the final fixation. We then reduced the shoulder by traction, and this was reduced without any major complications. We had good shock with good flexion extension abduction external rotation without any complications. We then washed the shoulder with Normal Saline Followed by Closure of the subscapularis and the rotator cuff interval with a running FiberWire. We were happy with the final fixation. We then washed out the remaining shoulder joint with copious of normal saline followed by closure of the subcuticular tissue using 2-0 Vicryl followed by using Biosyn running 3 0 for the skin. This is then followed by placement of Dermabond glue and silver impregnated dressings. Patient was placed in a UltraSling [employer] shoulder immobilizer along with cold compress. Patient was moved to the recovery in stable condition. Patient had good pulses distally and good flexion-extension rotation and movement of the wrist. There is no evidence of any new neurological deficits seen. Postoperative x-rays taken in the PACU show right reverse shoulder arthroplasty well aligned well fixed without any complicating process. Complications: None; patient tolerated the procedure well. Disposition: PACU - hemodynamically stable. Condition: stable Postoperative plan: #1 patient will use the UltraSling for at least 2 weeks without major external or internal rotationof the shoulder. #2 patient will use ice as protocol for the shoulder for pain control. #3 patient will use [place] 5 mg tablets to take 1 tablet 6-8 hourly as needed for pain control. #4 patient will use Keflex 500 mg 3 times daily for total of 7 days. #5 patient will also start elbow and wrist range of motion and may use this upper extremity for feeding himself. #6 patient will be on strict falls precautions and will avoid excessive adduction internal rotationas well as abduction external rotation to prevent failure of the repair. #7 patient will follow up to see me in office about 2 to 3 weeks' time or earlier if required. #8 patient will call us if he develops any fever chills rigors or concerns. #9 patient will be discharged to his custody and facility after he is stable in recovery. Plan all questions were answered. Campbell Ortega documented in this encounter Plan of Treatment DateTypeDepartmentCare Team (Latest Contact Info)Yjeodqikepx20/19/2025 1:30 PM ESTOffice Visit [facility] [address] [place] [address] [place] [address] Campbell Ortega MD [address] [place] [id number] documented as of this encounter Procedures Procedure NamePriorityDate/TimeAssociated DiagnosisCommentsPR ARTHROPLASTY GLENOHUMERAL JOINT TOTAL [id number]/03/2025 10:41 AM EST Rotator cuff tear arthropathy of right shoulder Glenohumeral arthritis, right Osteoporosis without pathological fracture Class 3 obesity (CMS/HCC) POCT GLUCOSE METER UNSOLICITED [id number]/03/2025 10:04 AM EST documented in this encounter Results * POCT glucose meter (12/12/2024 10:04 AM EST)ComponentValueRef RangeTest Method Analysis TimePerformed AtPathologist SignatureGlucose [id number] - 105 mg/dL 12/12/2024 10:29 AM [facility] ([facility])Comment:miwardSpecimen (Source)Anatomical Location / LateralityCollection Method / VolumeCollection TimeReceived TimeBloodCapillary blood specimen / [id number]/12/2024 10:04 AM EST12/12/2024 10:29 AM EST Narrative [facility] ([facility]) - 12/12/2024 10:29 AM EST Waived Testing in the ED is performed under the ED CLIA certificate #[id number]. Authorizing ProviderResult TypeResult StatusCampbell Ortega MDLAB BLOOD ORDERABLESFinal ResultPerforming OrganizationAddressCity/State/ZIP CodePhone Number [facility] [address] [place] [address] documented in this encounter Visit Diagnoses Diagnosis Rotator cuff tear arthropathy of right shoulder- Primary Status post reverse arthroplasty of shoulder, right documented in this encounter Admitting Diagnoses Diagnosis Rotator cuff tear arthropathy of right shoulder documented in this encounter Administered Medications Medication OrderMAR ActionAction DateDoseRateSite acetaminophen (Tylenol) tablet 1,000 mg 1,000 mg, oral, Once, On Thu12/12/24 at 1000, For 1 dose, Preprocedure Given12/12/2024 10:00 AM EST1,000 mg celecoxib (CeleBREX) capsule 400 mg 400 mg, oral, Once, On Thu12/12/24 at 1000, For 1 dose, Preprocedure, *If no cardiac history Given12/12/2024 9:57 AM [id number] mg dexAMETHasone (Decadron) injection 10 mg 10 mg, intravenous, Once, On Thu12/12/24 at 1000, For 1 dose, Preprocedure, Slow IV Push Given12/12/2024 9:58 AM EST10 mg gabapentin (Neurontin) capsule 300 mg 300 mg, oral, Once, On Thu12/12/24 at 1000, For 1 dose, Preprocedure Given12/12/2024 10:01 AM [id number] mg HYDROmorphone (Dilaudid) injection 0.5 mg 0.5 mg, intravenous, Every 15 min PRN, severe pain (8-10 pain score), First choice for severe pain (8-10), Starting on Thu12/12/24 at 1318, For 4 doses, Recovery (only) Given12/12/2024 1:55 PM EST0.5 mg lactated Ringer's infusion 1 mL/hr, intravenous, Continuous, Starting on Thu12/12/24 at 1000, For 1 day, Preprocedure, Indication: Perioperative hydration Given12/12/2024 1:09 PM [id number] mLContinued by Ijmlqmtrxb62/03/2025 10:37 AM EST1 mL/hr1 mL/hrNew Bag12/12/2024 10:16 AM EST1 mL/hr1 mL/hr prochlorperazine (Compazine) injection 5 mg 5 mg, intravenous, Once as needed, nausea, vomiting, Starting on Thu12/12/24 at 1318, For 1 dose, Recovery & On Unit, For IVP: give each 5mg or less over 1 minute. sodium chloride flush 10 mL 10 mL, intravenous, Every 8 hours PRN, line care, Starting on Thu12/12/24 at 0945, For 99 days, Preprocedure tranexamic acid (Lysteda) tablet 1,950 mg 1,950 mg, oral, Once, On Thu12/12/24 at 1000, For 1 dose, Preprocedure, Do not crush, chew, or split. Given12/12/2024 9:58 AM EST1,950 mgdocumented in this encounter Active and Recently Administered Medications Due to Daylight Saving Time, this section may contain times in both EDT and EST. Medication Order acetaminophen (Tylenol) tablet 1,000 mg (COMPLETED) 1,000 mg, oral, Once, On Thu12/12/24 at 1000, For 1 dose, Preprocedure * 1000 (Given - Provider: Dorothy Mcdaniel RN) ceFAZolin (Ancef) IV syringe 3 g (COMPLETED) 3 g, intravenous, Once, On Thu12/12/24 at 1000, For 1 dose, Preprocedure, Administer within 60 minutes of incision., Suspected Indication (Select all that apply): Surgical Prophylaxis * 1052 (Given - Provider: WOODY Winter) celecoxib (CeleBREX) capsule 400 mg (COMPLETED) 400 mg, oral, Once, On Thu12/12/24 at 1000, For 1 dose, Preprocedure, *If no cardiac history * 0957 (Given - Provider: Dorothy Mcdaniel RN) dexAMETHasone (Decadron) injection 10 mg (COMPLETED) 10 mg, intravenous, Once, On Thu12/12/24 at 1000, For 1 dose, Preprocedure, Slow IV Push * 0958 (Given - Provider: Dorothy Mcdaniel RN) gabapentin (Neurontin) capsule 300 mg (COMPLETED) 300 mg, oral, Once, On Thu12/12/24 at 1000, For 1 dose, Preprocedure * 1001 (Given - Provider: Dorothy Mcdaniel RN) tranexamic acid (Lysteda) tablet 1,950 mg (COMPLETED) 1,950 mg, oral, Once, On Thu12/12/24 at 1000, For 1 dose, Preprocedure, Do not crush, chew, or split. * 0958 (Given - Provider: Dorothy Mcdaniel RN) Medication Order// lactated Ringer's infusion 1 mL/hr, intravenous, Continuous, Starting on Thu12/12/24 at 1000, For 1 day, Preprocedure, Indication: Perioperative hydration * 1016 (New Bag - Provider: Dorothy Mcdaniel RN) * 1037 (Continued by Anesthesia - Provider: WOODY Winter) * 1309 (Given - Provider: WOODY Winter) * 1729 (Due: Order Ending - Provider: Automatic Discharge Provider - Comment: [Order ends at this time. Document the following action when infusion is complete: Stopped]) Medication Order// BUPivacaine HCl (Marcaine) 0.5 % (5 mg/mL) injection (CANCELED) As needed, Starting on Thu12/12/24 at 1237, Intraprocedure * 1237 (Given - Provider: Campbell Ortega MD) HYDROmorphone (Dilaudid) injection 0.5 mg (CANCELED) 0.5 mg, intravenous, Every 15 min PRN, severe pain (8-10 pain score), First choice for severe pain (8-10), Starting on Thu12/12/24 at 1318, For 4 doses, Recovery (only) * 1355 (Given - Provider: Francesco Moreno RN) lidocaine-EPINEPHrine (PF) (Xylocaine W/EPI) 1 %-1:200,000 injection (CANCELED) As needed, Starting on Thu12/12/24 at 1237, Intraprocedure * 1237 (Given - Provider: Campbell Ortega MD) prochlorperazine (Compazine) injection 5 mg 5 mg, intravenous, Once as needed, nausea, vomiting, Starting on Thu12/12/24 at 1318, For 1 dose, Recovery & On Unit, For IVP: give each 5mg or less over 1 minute. sodium chloride flush 10 mL(Linked Group 1) 10 mL, intravenous, Every 8 hours PRN, line care, Starting on Thu12/12/24 at 0945, For 99 days, Preprocedure sodium chloride irrigation solution 0.9 % (CANCELED) As needed, Starting on Thu12/12/24 at 1135, Intraprocedure * 1135 (Given - Provider: Campbell Ortega MD) Order Group 1: Insert peripheral IV (CANCELED) Once, On Thu12/12/24 at 0946, For 1 occurrence, Preprocedure And Saline lock IV (CANCELED) Once, On Thu12/12/24 at 0946, For 1 occurrence, Preprocedure And sodium chloride flush 10 mLJump to med 10 mL, intravenous, Every 8 hours PRN, line care, Starting on Thu12/12/24 at 0945, For 99 days, Preprocedure documented in this encounter Care Teams Team MemberRelationshipSpecialtyStart DateEnd Date Anastacia Ham MD [facility]CP - [facility]09/27/21documented as of this encounter
--- OUTSIDE RECORDS SUMMARY | 2024-12-12 10:37 | XMS_ITS | Encounter Summary ---
Author Organization [facility] Address [address] [facility] [place] [address] Care Team Providers Care Map Editor Name Role Phone Anastacia Ham MD Primary Care Provider [phone] Reason for Visit * Auth/Cert (Routine)SpecialtyDiagnoses / ProceduresReferred By ContactReferred To Contact Diagnoses Rotator cuff tear arthropathy of right shoulder Rotator cuff tear arthropathy of right shoulder [M75.101, M12.811] Procedures NM ARTHROPLASTY GLENOHUMERAL JOINT TOTAL SHOULDER REVERSE TOTAL SHOULDER ARTHROPLASTY Campbell Ortega MD [address] [place] [phone] Phone: tel: fax: [facility] Main Operating Room [address] [place] [address] Phone: tel: fax: Referral IDStatusReasonStart DateExpiration DateVisits RequestedVisits [id number] Encounter Details DateTypeDepartmentCare Team (Latest Contact Info)Nfcyltfuqzx17/03/2025 10:37 AM ESTAnesthesia Event [facility] Main Operating Room [address] [place] [address] Lissette Garcia MD [address] [phone] Stephanie Doran MD [address] [place], [place] [phone] Anesthesia Record Procedure NameResponsible AnesthesiologistAnesthesia Start TimeAnesthesia Stop TimeREVERSE TOTAL SHOULDER ARTHROPLASTY (Right: Shoulder)Lissette Garcia MD 12/12/24 38979712/12/24 2008AemsLrliQotxxUtpwqnq82/03/761164160752Yv Zteng1619Gn Start Ysck6174Bz InductionThe patient was reevaluated immediately before moderate or deep sedation use and before anesthesia induction.1049An Intubation 1050Anesthesia Siwgx3285Iaxb OutTime out completed (confirmed patient ID, surgeon, procedure, and operative site).1300An Dtmjhnyzjf6001lb stop [id number] Handoff to ReceivingI completed my handoff to the receiving clinician during which we: 1. Identified the patient 2. Identified the responsible provider 3. Reviewed the pertinent medical history 4. Discussed the surgicalcourse 5. Reviewed intra-op anesthesia management and issues during anesthesia 6. Set expectations for post-procedure period 7. Allowed opportunity for questions and acknowledgement of understanding.1310An Stop* NameTotallidocaine (Xylocaine) 20 mg/ml injection 2 %60 mgpropofol 10 mg/mL200 mgsuccinylcholine 20 mg/mL160 mg ondansetron 2 mg/mL4 mgphenylephrine (Ramses-Synephrine) 10 mg/ml uqexjwnpv935 mcgBUPivacaine (Marcaine) injection 0.5 % (5 mg/mL)125 mgfentaNYL (SUBLIMAZE) IV250 mcgmidazolam (VERSED) IV2 mgceFAZolin (Ancef) IV syringe 3 g3 glactated Ringer's yfmeumuu791.55 mLHYDROmorphone (Dilaudid) injection 1 mg/ml1 mg * Agents Name O2 N2O Air Sevoflurane Inspired Sevoflurane N2O Inspired N2O Inspired O2 Setting * Blood No blood administrations on file. TypeDetailsPlacementRemovalOpen Wound (Any Pressure Injuries included)11/27/21; 1230; Hip; Left, Migmfamng73/19/22 1230 by Lucille Kong Wound (Any Pressure Injuries included)12/12/24; 1119; Yes; Surgical; Shoulder; Right, Smqplssh01/03/25 1119 by GELA Camperipheral IVPlacement Date: 12/12/24; Placement Time: 0950; Orientation: Left, Posterior; Location: Hand; Site Prep: Chlorhexidine ; Local Anesth: None; Technique: Anatomical landmarks; Inserted by: BRANDON DELA CRUZ;Insertion Attempts: 1; Removal Date: 12/12/24; Removal Time: 0950 by Dorothy Mcdaniel RN12/12/24 1500 by Jenniffer Mcdermott RN ETTPlacement Date: 12/12/24; Placement Time: 1049 (created via procedure documentation); Mask Ventilation: 1; Technique: Video laryngoscopy; Type: ETT - single; Single Lumen Tube Size: 7.5 mm; Cuffed: Yes; Blade Size: 3; Location: Oral; Grade View: Grade I; Insertion Attempts: 1; Placement Verification: Auscultation, Capnometry; Removal Date: 12/12/24; Removal Time: 1049 by WOODY Winter12/12/24 1300 by Mariangel Monroe, CAA documented in this encounter Social History Tobacco UseTypesPacks/DayYears UsedDateSmoking Tobacco: FormerCigarettesQuit: mokeless Tobacco: NeverAlcohol UseStandard Drinks/WeekCommentsYes0 (1 standard drink = 0.6 oz pure alcohol)BEER EVERY COUPLE WEEKSPHQ-2AnswerDate RecordedPatient Health Questionnaire-2 Cgxtk867UT Safety & Environment AnswerDate RecordedFear of Current or Ex-PartnerNot on file04/02/2023Emotionally AbusedNot on file04/02/2023hysically AbusedNot on 04/02/2023Sexually Abused Not on file04/02/2023hysically or Sexually AbusedNot on file04/02/2023 CommentsNoSex and Gender InformationValueDate RecordedSex Assigned at Sxyxvg5311/11/2024 11:30 AM EDTLegal UixXexnep78/29/2022 10:52 PM EDTGender LhlzbckwIgaipf73/08/2025 8:23 AM EDTSexual OrientationHeterosexual or Straight 11/16/2024 8:23 AM EDTdocumented as of this encounter Functional Status * QuestionAnswerDate of FrzwoyeqjiEvvgzdYV346/6712/12/2024 2:55 PM Jenniffer Garrido, RMVjmzf4033/03/2025 2:55 PM Jenniffer Garrido, RNHeart Rate Source Grbukgt3312/12/2024 1:25 PM Francesco Carranza RNPatient WvclnvvfJokzw63/03/2025 1:09 PM Jenniffer Garrido, RN * Obed ScaleQuestionAnswerDate of AssessmentAuthorBraden No Risk Interventions Continue to assess patient according to level of care12/12/2024 10:11 AM Dorothy Gil, RNSensory Vziuhfwemvl642/03/2025 10:11 AM Dorothy Montalvo, IJLtsryekj333/03/2025 10:11 AM Dorothy Allison, RN Oeftfvid804/03/2025 10:11 AM Dorothy Allison, RBSzhfjbje377/03/2025 10:11 AM Dorothy Allison, CEEbirtxtry903/03/2025 10:11 AM Dorothy Montalvo, RNFriction and Egtko67102/12/2024 10:11 AM Dorothy Allison RNBraden Scale Qfzsq7711/03/2025 10:11 AM Dorothy Allison, RN * Pain Assessment TimerQuestionAnswerDate of AssessmentAuthorRestart Pain Assessment DwhcuMpm45/03/2025 2:55 PM Jenniffer Garrido RN * Sepsis Model ScoresQuestionAnswerDate of AssessmentAuthorEarly Detection of Sepsis Score1. 3:15 PM ESTChronicles, Batchq * Pain AssessmentQuestionAnswerDate of AssessmentAuthorPain LocationShoulder 12/12/2024 1:55 PM Francesco Carranza RNPain QyuooponlxeTmyvj49/03/2025 1:55 PM Francesco Carranza RNPain InterventionsMedication (See MAR)12/12/2024 1:55 PM Francesco Carranza RNPain IhxgbudoapjNbuqep25/03/2025 1:55 PM Francesco Carranza RNPain FrequencyConstant/ewdnezunfo87/03/2025 1:55 PM Francesco Carranza RNPatient's Stated Pain Yqol42602/12/2024 2:55 PM Jenniffer Garrido RNRamsarehan Scale (RS): Ysrnm34602/12/2024 10:11 AM ESTBarerica-Dorothy Tobias RNPain TypeSurgical pain12/12/2024 1:55 PM Francesco Carranza RNPain Tqvuf27802/12/2024 1:55 PM Francesco Carranza RNPain AssessmentNo/denies pain12/12/2024 2:55 PM Jenniffer Garrido RN * Head, Ears, Eyes, Nose, and Throat (HEENT)QuestionAnswerDate of Assessment AuthorHead, Ears, Eyes, Nose, and Throat (WDL)WDL102/12/2024 2:55 PM Jenniffer Santillan RN * QuestionAnswerDate of AssessmentAuthorSlingRemains in place12/12/2024 1:55 PM Francesco Carranza RNMiscellaneous DevicesABductor pillow;Sling12/12/2024 2:55 PM Jenniffer Garrido RN * Vital SignsQuestionAnswerDate of EbgqmwnppoRdatbkJH431/6712/12/2024 2:55 PM Jenniffer Garrido, SJMuni88. 1:09 PM Jenniffer Garrido RNTemp zroRtjwbzog15/03/2025 1:09 PM Jenniffer Garrido, SJOiurh9440/03/2025 2:55 PM Jenniffer Garrido FWOyyj4884/03/2025 2:55 PM Jenniffer Garrido, CGGiW206 12/12/2024 2:55 PM Jenniffer Garrido RNHeart Rate CiefytRmezssf85/03/2025 1:25 PM Francesco Carranza RNBP LocationLeft arm12/12/2024 1:09 PM Jenniffer Santillan RNBP DlihwqLypyiprly38/03/2025 1:09 PM Jenniffer Garrido RNMAP (mmHg)7812/12/2024 2:55 PM Jenniffer Garrido RNPulse rate from Plethysmogram (bpm)9112/12/2024 2:55 PM Jenniffer Garrido RNPatient DioalcjiZpzhn13/03/2025 1:09 PM Jenniffer Garrido RN * QuestionAnswerDate of AssessmentAuthorLevel of ConsciousnessResponds to voice 12/12/2024 1:40 PM Francesco Carranza RN * QuestionAnswerDate of AssessmentAuthorCardiac VldrboHTC80/03/2025 1:40 PM Francesco Sauceda RNCardiac GqxtocvztyJarobxc49/03/2025 1:40 PM Francesco Carranza RNHeart SoundsS1, S212/12/2024 1:40 PM Francesco Carranza RN * GastrointestinalQuestionAnswerDate of AssessmentAuthorGastrointestinal (WDL) WDL102/12/2024 2:55 PM Jenniffer Garrido RNAbdomen Inspection Soft;Noedhfmzltrr52/03/2025 1:40 PM Francesco Carranza RNGastrointestinal LlgdmdcpRgac70/03/2025 1:55 PM Francesco Carranza RN * Peripheral VascularQuestionAnswerDate of AssessmentAuthorPeripheral Vascular (WDL)WDL102/12/2024 2:55 PM Jenniffer Garrido RN * MusculoskeletalQuestionAnswerDate of AssessmentAuthorRUELimited movement 12/12/2024 2:55 PM Jenniffer Garrido RNRLEFull qydifdfu04/03/2025 2:55 PM Jenniffer Garrido RNLUEFull svbcfboe48/03/2025 2:55 PM Jenniffer Garrido RNLLEFull vorbmwjz67/03/2025 2:55 PM Jenniffer Garrido RNMusculoskeletal (WDL)X102/12/2024 2:55 PM Jenniffer Garrido RN * PsychosocialQuestionAnswerDate of AssessmentAuthorPsychosocial (WDL)WDL 12/12/2024 10:11 AM Dorothy Allison, JOSE DE JESUS * Obed ScaleQuestionAnswerDate of AssessmentAuthorBraden No Risk Interventions Continue to assess patient according to level of care12/12/2024 10:11 AM Dorothy Gil, RNSensory Watrvhvurag944/03/2025 10:11 AM Dorothy Montalvo, ARFvdaxilt932/03/2025 10:11 AM Dorothy Allison, RN Fyawaels145/03/2025 10:11 AM Dorothy Allison, AYNhflnpbv565/03/2025 10:11 AM Dorothy Allison, TVOjjzlvknj575/03/2025 10:11 AM Dorothy Montalvo, RNFriction and Negnu06302/12/2024 10:11 AM Dorothy Allison RNBraden Scale Pudon3017/03/2025 10:11 AM Dorothy Allison, RN * RespiratoryQuestionAnswerDate of AssessmentAuthorBilateral Breath Sounds Anterior;Clear12/12/2024 1:40 PM Francesco Carranza RNRespiratory Pattern Opqdxc1512/12/2024 1:40 PM Francesco Carranza RNChest AssessmentSymmetrical 12/12/2024 1:40 PM Francesco Carranza RNRespiratory (WDL)WDL102/12/2024 2:55 PM Jenniffer Garrido RNRespiratory TrurvvGjhttrupd71/03/2025 1:09 PM Francesco Carranza RNRespiratory Depth/RhfakuSbalosq52/03/2025 1:09 PM Francesco Carranza RNBreath SoundsBilateral breath adskek5412/12/2024 1:09 PM Francesco Carranza RN * GenitourinaryQuestionAnswerDate of AssessmentAuthorGenitourinary (WDL)WDL 12/12/2024 2:55 PM Jenniffer Garrido RN * NeurologicalQuestionAnswerDate of AssessmentAuthorNeuro (WDL)WDL11/04/2024 10:11 AM Dorothy Allison RN * QuestionAnswerDate of CwrhhrhhaaYythotQIFL8373/03/2025 1:03 PM ESTInterface, Device In * Pain AssessmentQuestionAnswerDate of AssessmentAuthorPain LocationShoulder 12/12/2024 1:55 PM Cal Carranzaer RNPsumit XjolkuqdhiwFrige70/03/2025 1:55 PM Cal Carranzaer RNPsumit InterventionsMedication (See MAR)12/12/2024 1:55 PM Cal Carranzaer, RNPain MrdumxidltxQnqiin14/03/2025 1:55 PM Cal CarranzaerMoira FrequencyConstant/ojgxpmqrlc59/03/2025 1:55 PM Francesco Carranza RNPatient's Stated Pain Jumh18302/12/2024 2:55 PM Jenniffer Garrido RNRamsay Scale (RS): Kpzcq85002/12/2024 10:11 AM Dorothy Allison RNPain TypeSurgical pain12/12/2024 1:55 PM Francesco Carranza RNPain Eckfi84502/12/2024 1:55 PM Francesco Carranza RNPain AssessmentNo/denies pain12/12/2024 2:55 PM Jenniffer Garrido RN * [place] Suicide Severity Rating ScaleQuestionAnswerDate of AssessmentAuthor1. Have you wished you were or wished you could go to sleep and not wake up? No12/12/2024 10:15 AM Dorothy Allison RN2. Have you actually had any thoughts of killing yourself?No12/12/2024 10:15 AM Dorothy Allison, JOSE DE JESUS 6. Have you ever done anything, started to do anything, or prepared to do anything to end your life?No12/12/2024 10:15 AM Dorothy Allison, JOSE DE JESUS * Risk of SuicideAnswerDate of AssessmentAuthorNo Risk12/12/2024 10:15 AM Dorothy Gil, JOSE DE JESUS * QuestionAnswerDate of AssessmentAuthorSkin ColorAppropriate for race12/12/2024 2:55 PM Jenniffer Garrido RNSkin Condition/TempWarm;Dry12/12/2024 2:55 PM Jenniffer Garrido RNSkin IntegrityOther (Comment)12/12/2024 2:55 PM Jenniffer Santillan RN * Modified AldreteQuestionAnswerDate of NgqyvvgvowIyalpwOsvaynfu554/03/2025 2:55 PM Jenniffer Garrido RNRespiration2102/12/2024 2:55 PM Jenniffer Garrido RNCirculation 2:55 PM Jenniffer Garrido, JOSE DE JESUSConsciousness2 12/12/2024 2:55 PM Jenniffer Garrido, JOSE DE JESUSOxygen Vnvsyvvhuy468/03/2025 2:55 PM Jennifefr Garrido RN * Modified Phong ScoreAnswerDate of GdopgltjzaGqleay7368/03/2025 2:55 PM Jenniffer Santillan RN documented as of this encounter Mental Status * Modified AldreteQuestionAnswerEntry QydbQsrroiIhlidywh539/03/2025 2:55 PM Jenniffer Santillan RNRespiration2102/12/2024 2:55 PM Jenniffer Garrido, RN Hpjphvpoeij158/03/2025 2:55 PM Jenniffer Garrido RNConsciousness 2:55 PM Jenniffer Garrido RNOxygen Dghffrbitw968/03/2025 2:55 PM Jenniffer Santillan RN * Modified Phong ScoreAnswerEntry EpdkRsvkmc8727/03/2025 2:55 PM Jenniffer Garrido RN documented in this encounter Procedure Notes * WOODY Winter - 12/12/2024 11:07 AM ESTAssociated Order(s): Airway Airway Date/Time: 12/12/2024 10:49 AM Reason: elective General Information and Staff Patient location during procedure: OR Anesthesiologist: Lissette Garcia MD Resident/MIDDLEWARE ARCHITECT/CAA: WOODY Winter Performed: resident/MIDDLEWARE ARCHITECT/WOODY Patient Condition Indications for airway management: anesthesia Sedation level: deep Final Airway Details Preoxygenated: yes Final airway type: endotracheal airway Successful airway: ETT Cuffed: yes Successful intubation technique: video laryngoscopy Adjuncts used in placement: intubating stylet Endotracheal tube insertion site: oral Blade: Esparza Blade size: #3 ETT size (mm): 7.5 Cormack-Lehane Classification: grade I - full view of glottis Placement verified by: chest auscultation and capnometry Measured from: lips ETT to lips (cm): 22 Number of attempts at approach: 1 Number of other approaches attempted: 0 * Lissette Garcia MD - 12/12/2024 10:28 AM ESTAssociated Order(s): Peripheral Block Peripheral Block Patient location during procedure: pre-op Start time: 12/12/2024 10:12 AM End time: 12/12/2024 10:28 AM Reason for block: at surgeon's request and post-op pain management Staffing Performed: anesthesiologist Anesthesiologist: Lissette Garcia MD Resident/MIDDLEWARE ARCHITECT: WOODY Winter Preanesthetic Checklist Completed: patient identified, IV checked, site marked, risks and benefits discussed, surgical consent, monitors and equipment checked, pre-op evaluation and timeout performed Peripheral Block Patient position: sitting Prep: ChloraPrep Patient monitoring: continuous pulse ox Block type: interscalene brachial plexus Laterality: right Injection technique: single-shot Guidance: ultrasound guided Needle Needle type: short-bevel Needle gauge: 22 G Needle length: 2 in Needle localization: ultrasound guidance Medications Administered midazolam (VERSED) IV - intravenous 2 mg - 12/12/2024 10:12:00 AM fentaNYL (SUBLIMAZE) IV - intravenous 100 mcg - 12/12/2024 10:12:00 AM BUPivacaine (Marcaine) injection 0.5 % (5 mg/mL) - injection 125 mg - 12/12/2024 10:12:00 AM Assessment Injection assessment: negative aspiration for heme, no paresthesia on injection, incremental injection and local visualized surrounding nerve on ultrasound Paresthesia pain: none Heart rate change: no documented in this encounter Plan of Treatment DateTypeDepartmentCare Team (Latest Contact Info)Gnpuekbbryq77/19/2025 1:30 PM ESTOffice Visit [facility] [address] [place] [address] [place] [phone] Campbell Ortega MD [address] [place] [address] [place] [address] documented as of this encounter Procedures Procedure NamePriorityDate/TimeAssociated DiagnosisCommentsPR AN ELECTIVE ENDOTRACHEAL TGPOFNPciqmmj07/03/2025 10:49 AM EST HC INJ,ANES AGENT,BRACHIAL PLEXUS,BFNYKTSpyqjuj35/03/2025 10:12 AM EST CHG US GUIDANCE NEEDLE PLACEMENT IMG S&IUgssyjr45/03/2025 10:12 AM EST NM INJECTION AA&/STRD BRACHIAL PLEXUS W/IMG FBEVgrabrg72/03/2025 10:12 AM EST documented in this encounter Results * NM AN ELECTIVE ENDOTRACHEAL AIRWAY (12/12/2024 10:49 AM EST) Narrative Mariangel Monroe CAA - 12/12/2024 10:49 AM EST WOODY Winter 12/12/2024 11:09 AM Airway Date/Time: 12/12/2024 10:49 AM Reason: elective General Information and Staff Patient location during procedure: OR Anesthesiologist: Lissette Garcia MD Resident/MIDDLEWARE ARCHITECT/WOODY: WOODY Winter Performed: resident/MIDDLEWARE ARCHITECT/WOODY Patient Condition Indications for airway management: anesthesia Sedation level: deep Final Airway Details Preoxygenated: yes Final airway type: endotracheal airway Successful airway: ETT Cuffed: yes Successful intubation technique: video laryngoscopy Adjuncts used in placement: intubating stylet Endotracheal tube insertion site: oral Blade: Esparza Blade size: #3 ETT size (mm): 7.5 Cormack-Lehane Classification: grade I - full view of glottis Placement verified by: chest auscultation and capnometry Measured from: lips ETT to lips (cm): 22 Number of attempts at approach: 1 Number of other approaches attempted: 0 Authorizing ProviderResult TypeResult StatusLissette Garcia MDANESTHESIA ORDERABLES Final Result * NM INJECTION AA&/STRD BRACHIAL PLEXUS W/IMG GDN, CHG US GUIDANCE NEEDLE PLACEMENT IMG S&I, HC INJ,ANES AGENT,BRACHIAL PLEXUS,SINGLE (12/12/2024 10:12 AM EST) Lissette Maza MD - 12/12/2024 10:12 AM EST Lissette Garcia MD 12/12/2024 1:33 PM Peripheral Block Patient location during procedure: pre-op Start time: 12/12/2024 10:12 AM End time: 12/12/2024 10:28 AM Reason for block: at surgeon's request and post-op pain management Staffing Performed: anesthesiologist Anesthesiologist: Lissette Garcia MD Resident/MIDDLEWARE ARCHITECT: WOODY Winter Preanesthetic Checklist Completed: patient identified, IV checked, site marked, risks and benefits discussed, surgical consent, monitors and equipment checked, pre-op evaluation and timeout performed Peripheral Block Patient position: sitting Prep: ChloraPrep Patient monitoring: continuous pulse ox Block type: interscalene brachial plexus Laterality: right Injection technique: single-shot Guidance: ultrasound guided Needle Needle type: short-bevel Needle gauge: 22 G Needle length: 2 in Needle localization: ultrasound guidance Medications Administered midazolam (VERSED) IV - intravenous 2 mg - 12/12/2024 10:12:00 AM fentaNYL (SUBLIMAZE) IV - intravenous 100 mcg - 12/12/2024 10:12:00 AM BUPivacaine (Marcaine) injection 0.5 % (5 mg/mL) - injection 125 mg - 12/12/2024 10:12:00 AM Assessment Injection assessment: negative aspiration for heme, no paresthesia on injection, incremental injection and local visualized surrounding nerve on ultrasound Paresthesia pain: none Heart rate change: no Authorizing ProviderResult TypeResult Radha Garcia MDANESTHESIA ORDERABLES Edited Result - Final documented in this encounter Visit Diagnoses * Anesthesia Postprocedure Evaluation - Lissette Garcia MD - 12/12/2024 4:24 PM EST Patient: Keila Pinrosalba Procedure Summary Date: 12/12/24 Room / Location: [facility] OPERATING ROOM 02 / [facility] Operating Room Anesthesia Start: 1037 Anesthesia Stop: 1310 Procedure: REVERSE TOTAL SHOULDER ARTHROPLASTY (Right: Shoulder) Diagnosis: Rotator cuff tear arthropathy of right shoulder Glenohumeral arthritis, right Osteoporosis without pathological fracture Class 3 obesity (CMS/HCC) (Rotator cuff tear arthropathy of right shoulder [M75.101, M12.811]) Surgeons: Campbell Ortega MD Responsible Provider: Lissette Garcia MD Anesthesia Type: general, regional ASA Status: 3 Anesthesia Type: general, regional Vitals Value Taken Time BP 114/71 12/12/24 13:25 Temp 36.4 ??C (97.5 ??F) 12/12/24 13:09 Pulse 90 12/12/24 13:37 Resp 17 12/12/24 13:37 SpO2 88 % 12/12/24 13:37 Vitals shown include unfiled device data. Anesthesia Post Evaluation Patient location during evaluation: PACU Patient participation: complete - patient participated Level of consciousness: awake Pain score: 0 Pain management: adequate Airway patency: patent Cardiovascular status: acceptable Respiratory status: acceptable Patient is hemodynamically stable and is able to be discharged from PACU per anesthesia protocol. No notable events documented. * Anesthesia Preprocedure Evaluation - Lissette Garcia MD - 12/12/2024 10:09 AM EST Patient: Keila Pinrosalba Procedure Information Date/Time: 12/12/24 1100 Procedure: REVERSE TOTAL SHOULDER ARTHROPLASTY (Right: Shoulder) - KELLY, BIOMET NOTIFIED 12/05 Location: [facility] OPERATING ROOM 02 / [facility] Operating Room Surgeons: Campbell Ortega MD Medical History[1] Relevant Problems Other (+) Osteoarthritis of left hip, unspecified osteoarthritis type (+) Primary osteoarthritis of left hip 2021 ECHO: EF WNL, no significant valvular abnormalities Clinical information reviewed: Tobacco Allergies Meds Med Hx Surg Hx OB Status Fam Hx Soc Hx Physical Exam Airway Mallampati: II TM distance: >3 FB Neck ROM: full Cardiovascular - normal exam Dental - normal exam Pulmonary - normal exam Neurological Abdominal (+) obese Anesthesia Plan ASA 3 general and regional The patient is not a current smoker. Patient was not previously instructed to abstain from smoking on day of procedure. Patient did not smoke on day of procedure. Education provided regarding risk of obstructive sleep apnea. intravenous induction Postoperative pain plan includes opioids. Trial extubation is planned. Anesthetic plan and risks discussed with patient. Plan discussed with CAA. Additional Equipment Requests [1] Past Medical History: Diagnosis Date ??? Adverse effect of anesthesia MOM HX DELAYED EMERGENCE ??? Fractures ??? Osteoarthritis ??? Rotator cuff tear arthropathy of right shoulder ??? Seasonal allergies documented in this encounter Administered Medications Medication OrderMAR ActionAction DateDoseRateSite BUPivacaine HCl (Marcaine) 0.5 % (5 mg/mL) injection injection, Once PRN Procedure, Starting on Thu12/12/24 at 1012, For 1 dose, Anesthesia Intraprocedure Given12/12/2024 10:12 AM KKS168 mg ceFAZolin (Ancef) IV syringe 3 g 3 g, intravenous, Once, On Thu12/12/24 at 1000, For 1 dose, Preprocedure, Administer within 60 minutes of incision., Suspected Indication (Select all that apply): Surgical Prophylaxis Given12/12/2024 10:52 AM EST3 g fentaNYL (Sublimaze) injection intravenous, Once PRN Procedure, Starting on Thu12/12/24 at 1012, For 1 dose, Anesthesia Intraprocedure Given12/12/2024 12:09 PM EST50 arnRvypk05/03/2025 10:47 AM YMY594 mcgGiven 12/12/2024 10:12 AM ZJI439 mcg HYDROmorphone (Dilaudid) injection intravenous, As needed, Starting on Thu12/12/24 at 1107, Anesthesia Intraprocedure Given12/12/2024 12:50 PM EST0.3 sxUouyp8112/12/2024 12:38 PM EST0.2 mgGiven 12/12/2024 12:10 PM EST0.2 mg lactated Ringer's infusion 1 mL/hr, intravenous, Continuous, Starting on Thu12/12/24 at 1000, For 1 day, Preprocedure, Indication: Perioperative hydration Given12/12/2024 1:09 PM CKY229 mLContinued by Ycrfgjmrou88/03/2025 10:37 AM EST1 mL/hr1 mL/hrNew Bag12/12/2024 10:16 AM EST1 mL/hr1 mL/hr lidocaine HCl (Xylocaine) 20 mg/mL (2 %) injection intravenous, As needed, Starting on Thu12/12/24 at 1047, Anesthesia Intraprocedure Given12/12/2024 10:47 AM EST60 mg midazolam (Versed) injection intravenous, Once PRN Procedure, Starting on Thu12/12/24 at 1012, For 1 dose, Anesthesia Intraprocedure Given12/12/2024 10:12 AM EST2 mg ondansetron (Zofran) injection intravenous, As needed, Starting on Thu12/12/24 at 1240, Anesthesia Intraprocedure Given12/12/2024 12:40 PM EST4 mg phenylephrine (Ramses-Synephrine) injection intravenous, As needed, Starting on Thu12/12/24 at 1114, Anesthesia Intraprocedure Given12/12/2024 11:47 AM CSN027 mmmBimny68/03/2025 11:31 AM HJD261 mcgGiven 12/12/2024 11:14 AM UIK050 mcg propofol (Diprivan) 10 mg/mL infusion intravenous, As needed, Starting on Thu12/12/24 at 1047, Anesthesia Intraprocedure Given12/12/2024 10:47 AM RJN986 mg succinylcholine (Anectine) injection intravenous, As needed, Starting on Thu12/12/24 at 1047, Anesthesia Intraprocedure Given12/12/2024 10:47 AM SQR900 mgdocumented in this encounter Care Teams Team MemberRelationshipSpecialtyStart DateEnd Date Anastacia Ham MD 3 [facility]09/27/21documented as of this encounter
--- OUTSIDE RECORDS SUMMARY | 2024-12-12 11:00 | XMS_ITS | Encounter Summary ---
Author Organization [facility] Address [address] [place] [address] Care Team Providers Care Business Development Representative Name Role Phone Anastacia Ham MD Primary Care Provider [phone] Reason for Visit * Auth/Cert (Routine)SpecialtyDiagnoses / ProceduresReferred By ContactReferred To Contact Diagnoses Rotator cuff tear arthropathy of right shoulder Rotator cuff tear arthropathy of right shoulder [M75.101, M12.811] Procedures SD ARTHROPLASTY GLENOHUMERAL JOINT TOTAL SHOULDER REVERSE TOTAL SHOULDER ARTHROPLASTY Campbell Ortega MD [address] [place] [phone] Phone: tel: fax: [facility] Main Operating Room [address] [place] [address] Phone: tel: fax: Referral IDStatusReasonStart DateExpiration DateVisits RequestedVisits [id number] Encounter Details DateTypeDepartmentCare Team (Latest Contact Info)Hvmmztnqcmf38/03/2025 11:00 AM EST - 12/12/2024 2:30 PM ESTSurgery [facility] Main Operating Room [address] [place] [address] Campbell Ortega MD [address] [place] [phone] REVERSE TOTAL SHOULDER ARTHROPLASTY [66273 (CPT??)] Social History Tobacco UseTypesPacks/DayYears UsedDateSmoking Tobacco: FormerCigarettesQuit: mokeless Tobacco: Never Tobacco Cessation:Counseling Given: Not Answered Alcohol UseStandard Drinks/WeekCommentsYes0 (1 standard drink = 0.6 oz pure alcohol)BEER EVERY COUPLE WEEKSPHQ-2AnswerDate RecordedPatient Health Questionnaire-2 Ttmak659UT Safety & EnvironmentAnswerDate RecordedFear of Current or Ex-PartnerNot on file04/02/2023Emotionally AbusedNot on file 04/02/2023hysically AbusedNot on file04/02/2023Sexually AbusedNot on file 04/02/2023hysically or Sexually AbusedNot on file04/02/2023CommentsNo Sex and Gender InformationValueDate RecordedSex Assigned at BirthFemale 11/11/2024 11:30 AM EDTLegal XlwDemplq23/29/2022 10:52 PM EDTGender Identity Uygiwg2611/16/2024 8:23 AM EDTSexual OrientationHeterosexual or Grrzxize19/08/2025 8:23 AM EDTdocumented as of this encounter Last Filed Vital Signs Vital SignReadingTime TakenCommentsBlood Sgemsmfj184 2:25 PM EST Hrmgj107712/12/2024 2:25 PM BHTFhcsandlzqb84.4 ??C (97.5 ??F)12/12/2024 1:09 PM ESTRespiratory Bfdw065102/12/2024 2:25 PM ESTOxygen Onadkkqxhq67%12/12/2024 2:25 PM ESTInhaled Oxygen Concentration--Wrgjal980 kg (287 lb 4.2 oz)12/12/2024 10:10 AM ITPIgipep698.3 cm (5' 11 )12/12/2024 10:10 AM ESTBody Mass Index40.06 12/12/2024 10:10 AM ESTdocumented in this encounter Functional Status * QuestionAnswerDate of OvivqrigfxOlftsaAZ007 2:25 PM Jenniffer Garrido RNPulse8012/12/2024 2:25 PM Jenniffer Garrido RNHeart Rate Source Jcnrvjz5512/12/2024 1:25 PM Francesco Carranza RNPatient NhgruiymLjogp95/03/2025 1:09 PM Jenniffer Garrido, JOSE DE JESUS * Obed ScaleQuestionAnswerDate of AssessmentAuthorBraden No Risk Interventions Continue to assess patient according to level of care12/12/2024 10:11 AM Dorothy Gil, RNSensory Nrwrhywzwmi724/03/2025 10:11 AM Dorothy Montalvo, XLXjcexpxw587/03/2025 10:11 AM Dorothy Allison, RN Hkrqwmjs812/03/2025 10:11 AM Dorothy Allison, NUNgdfiffm749/03/2025 10:11 AM Dorothy Allison, SHVznfdqovl116/03/2025 10:11 AM Dorothy Montalvo, RNFriction and Vpvpp29102/12/2024 10:11 AM Dorothy Allison RNBraden Scale Lsrdh0524/03/2025 10:11 AM Dorothy Allison, RN * Pain Assessment TimerQuestionAnswerDate of AssessmentAuthorRestart Pain Assessment PehgbHdr94/03/2025 2:25 PM Jenniffer Garrido RN * Sepsis Model ScoresQuestionAnswerDate of AssessmentAuthorEarly Detection of Sepsis Score1.8102/12/2024 2:15 PM ESTChronicles, Batchq * Pain AssessmentQuestionAnswerDate of AssessmentAuthorPain LocationShoulder 12/12/2024 1:55 PM Francesco Carranza RNPain TpuqcnshkxzHlhgm99/03/2025 1:55 PM Francesco Carranza RNPain InterventionsMedication (See MAR)12/12/2024 1:55 PM Francesco Carranza RNPain LtkyidoeudwTshxdf00/03/2025 1:55 PM Francesco Carranza RNPain FrequencyConstant/youuhnjkge64/03/2025 1:55 PM Francesco Carranza RNPatient's Stated Pain Uuhv58302/12/2024 2:25 PM ESTHernandez, Jenniffer, RNRamsay Scale (RS): Xjlgq61002/12/2024 10:11 AM Vy-Dorothy Tobias RNPain TypeSurgical pain12/12/2024 1:55 PM Francesco Carranza RNPain Jupnn94002/12/2024 1:55 PM Francesco Carranza RNPain AssessmentNo/denies pain12/12/2024 2:25 PM Jenniffer Garrido RN * Fall RiskQuestionAnswerDate of AssessmentAuthorOne or more falls in the last year:No12/07/2024 2:00 PM Nazanin Faith MAFeels unsteady when walkin 12/07/2024 2:00 PM Nazanin Faith MA * Head, Ears, Eyes, Nose, and Throat (HEENT)QuestionAnswerDate of Assessment AuthorHead, Ears, Eyes, Nose, and Throat (WDL)WDL102/12/2024 2:25 PM Jenniffer Santillan RN * QuestionAnswerDate of AssessmentAuthorSlingRemains in place12/12/2024 1:55 PM rFancesco Carranza RNMiscellaneous DevicesABductor pillow;Sling12/12/2024 2:25 PM Jenniffer Garrido RN * Vital SignsQuestionAnswerDate of LwzgmqkppcHbpuzsZJ731/6112/12/2024 2:25 PM Jenniffer Garrido, LUAsik68.511 1:09 PM Jenniffer Garrido, RNTemp skkZdgrxalw32/03/2025 1:09 PM Jenniffer Garrido, HUXikbg7605/03/2025 2:25 PM Jenniffer Garrido, FEMlro1676/03/2025 2:25 PM Jenniffer Garrido, AQLzH924 12/12/2024 2:25 PM Jenniffer Garrido RNHeart Rate TcmnjoBxkqggk49/03/2025 1:25 PM Francesco Carranza RNBP LocationLeft arm12/12/2024 1:09 PM Jenniffer Santillan RNBP VeadjcGuukxymgx88/03/2025 1:09 PM Jenniffer Garrido RNMAP (mmHg)7812/12/2024 2:25 PM Jenniffer Garrido RNPulse rate from Plethysmogram (bpm)7712/12/2024 2:25 PM Jenniffer Garrido RNPatient QlpycgydTiirc38/03/2025 1:09 PM Jenniffer Garrido RN * QuestionAnswerDate of AssessmentAuthorLevel of ConsciousnessResponds to voice 12/12/2024 1:40 PM Francesco Carranza RN * QuestionAnswerDate of AssessmentAuthorCardiac DqtmabXJK84/03/2025 1:40 PM Francesco Sauceda RNCardiac VckovasjxlKodyjvv54/03/2025 1:40 PM Francesco Carranza RNHeart SoundsS1, S212/12/2024 1:40 PM Francesco Carranza RN * GastrointestinalQuestionAnswerDate of AssessmentAuthorGastrointestinal (WDL) WDL102/12/2024 2:25 PM Jenniffer Garrido, RNAbdomen Inspection Soft;Lhzdiivnilzd17/03/2025 1:40 PM Francesco Carranza RNGastrointestinal GkhkaghdUjyq30/03/2025 1:55 PM Francesco Carranza RN * Peripheral VascularQuestionAnswerDate of AssessmentAuthorPeripheral Vascular (WDL)WDL102/12/2024 2:25 PM Jenniffer Garrido RN * MusculoskeletalQuestionAnswerDate of AssessmentAuthorRUELimited movement 12/12/2024 2:25 PM Jenniffer Garrido RNRLEFull nxxcocyu81/03/2025 2:25 PM Jenniffer Garrido RNLUEFull drtifnrv17/03/2025 2:25 PM Jenniffer Garrido RNLLEFull guhcwlta38/03/2025 2:25 PM Jenniffer Garrido RNMusculoskeletal (WDL)X102/12/2024 2:25 PM Jenniffer Garrido RN * PsychosocialQuestionAnswerDate of AssessmentAuthorPsychosocial (WDL)WDL 12/12/2024 10:11 AM Dorothy Allison, JOSE DE JESUS * Obed ScaleQuestionAnswerDate of AssessmentAuthorBraden No Risk Interventions Continue to assess patient according to level of care12/12/2024 10:11 AM Dorothy Gil, RNSensory Galygnjwjhd737/03/2025 10:11 AM Dorothy Montalvo, TLEvsvxgeo275/03/2025 10:11 AM Dorothy Allison, RN Udspjvhh425/03/2025 10:11 AM Dorothy Allison, MXOqdsdyng840/03/2025 10:11 AM Dorothy Allison, VORovgizyzg807/03/2025 10:11 AM Dorothy Montalvo, RNFriction and Pnlkc91702/12/2024 10:11 AM Dorothy Allison RNBraden Scale Wfjsj4121/03/2025 10:11 AM Dorothy Allison RN * RespiratoryQuestionAnswerDate of AssessmentAuthorBilateral Breath Sounds Anterior;Clear12/12/2024 1:40 PM Francesco Carranza RNRespiratory Pattern Jpvene4512/12/2024 1:40 PM Francesco Carranza RNChest AssessmentSymmetrical 12/12/2024 1:40 PM Francesco Carranza RNRespiratory (WDL)WDL102/12/2024 2:25 PM Jenniffer Garrido RNRespiratory SzxfhhJdeosajtl58/03/2025 1:09 PM Francesco Carranza RNRespiratory Depth/JwppyuXfymsut32/03/2025 1:09 PM Francesco Carranza RNBreath SoundsBilateral breath ubtqeh5312/12/2024 1:09 PM Francesco Carranza RN * GenitourinaryQuestionAnswerDate of AssessmentAuthorGenitourinary (WDL)WDL 12/12/2024 2:25 PM Jenniffer Garrido RN * NeurologicalQuestionAnswerDate of AssessmentAuthorNeuro (WDL)WDL102/12/2024 10:11 AM Dorothy Allison RN * QuestionAnswerDate of HlzggtzotiSnpejkWDEN9696/03/2025 1:03 PM ESTInterface, Device In * Pain AssessmentQuestionAnswerDate of AssessmentAuthorPain LocationShoulder 12/12/2024 1:55 PM Cal Carranzaer, RNPain ZsvgazeikraWvdal07/03/2025 1:55 PM Cal Carranzaer RNPsumit InterventionsMedication (See MAR)12/12/2024 1:55 PM Cal Carranzaer RNPain FoccmfdmglaHlekxu44/03/2025 1:55 PM ESTTalatrbCal vaner, RNPain FrequencyConstant/uhquiujagm36/03/2025 1:55 PM Francesco Carranza RNPatient's Stated Pain Xnyq32402/12/2024 2:25 PM Jenniffer Garrido RNRamsay Scale (RS): Lpnwv52702/12/2024 10:11 AM Dorothy Allison RNPain TypeSurgical pain12/12/2024 1:55 PM Cal Carranzaer RNPsumit Pieua91902/12/2024 1:55 PM Cal CarranzaerMoira AssessmentNo/denies pain12/12/2024 2:25 PM Jenniffer Garrido RN * Pain AssessmentQuestionAnswerDate of AssessmentAuthorPain Assessment0-10 12/07/2024 2:00 PM Nazanin Faith MA * [place] Suicide Severity Rating ScaleQuestionAnswerDate of AssessmentAuthor1. Have you wished you were or wished you could go to sleep and not wake up? No12/12/2024 10:15 AM Dorothy Allison, JOSE D EJESUS2. Have you actually had any thoughts of killing yourself?No12/12/2024 10:15 AM Dorothy Allison, JOSE DE JESUS 6. Have you ever done anything, started to do anything, or prepared to do anything to end your life?No12/12/2024 10:15 AM Dorothy Allison, JOSE DE JESUS * Risk of SuicideAnswerDate of AssessmentAuthorNo Risk12/12/2024 10:15 AM Dorothy Gil RN * QuestionAnswerDate of AssessmentAuthorSkin ColorAppropriate for race12/12/2024 2:25 PM Jenniffer Garrido RNSkin Condition/TempWarm;Dry12/12/2024 2:25 PM Jenniffer Garrido RNSkin IntegrityOther (Comment)12/12/2024 2:25 PM Jenniffer Santillan RN * Modified AldreteQuestionAnswerDate of AvoczwdsdeAyuloiQrpfmxsk177/03/2025 2:25 PM Jenniffer Garrido RNRespiration2102/12/2024 2:25 PM Jenniffer Garrido RNCirculation 2:25 PM Jenniffer Garrido RNConsciousness2 12/12/2024 2:25 PM Jenniffer Garrido RNOxygen Motwyzfiur192/03/2025 2:25 PM Jenniffer Garrido RN * Modified Phong ScoreAnswerDate of TulxkwsoetCnbsch217/03/2025 2:25 PM Jenniffer Santillan RN documented as of this encounter Mental Status * Modified AldreteQuestionAnswerEntry EcgdJzdisiWmiyewby650/03/2025 2:25 PM Jenniffer Santillan RNRespiration2102/12/2024 2:25 PM Jenniffer Garrido RN Hzrvsixoqfe691/03/2025 2:25 PM Jenniffer Garrido RNConsciousness 2:25 PM Jenniffer Garrido RNOxygen Hiluhyodbm298/03/2025 2:25 PM Jenniffer Santillan RN * Modified Phong ScoreAnswerEntry NkueAkmbmk969/03/2025 2:25 PM Jenniffer Garrido RN documented in this [...] times daily for 3 days. 12 capsule /07/2024 cholecalciferol, vitamin D3, 50 mcg (2,000 unit) capsule Take 1 tablet by mouth in the morning. fish oil/borage/flax/om3,6,9 1 (OMEGA 3-6-9 ORAL) Take by mouth. HYDROcodone-acetaminophen (Garfield) 5-325 mg tablet Indications:Status post reverse arthroplasty [...] the H&P. Dr. Campbell Ortega MD MRCSEd Alarm Field Technician orthopedic surgery Adult Reconstruction and Trauma [facility]. Source Note - Campbell Ortega [...] of left posterolateral total hip arthroplasty using Jason dual mobility implants on 11/27/21. She has [...] R shoulder from September 2023 at [facility] were also reviewed: Near complete rotator [...] from me. Dr. Campbell Ortega MD MRCSEd Alarm Field Technician orthopedic surgery Adult Reconstruction and Trauma [facility]. [1] Past Surgical History: Procedure Laterality Date CT CHEST ANGIOGRAM W AND/OR WO IV CONTRAST 11/28/2021 CT CHEST ANGIOGRAM W AND/OR WO IV CONTRAST 11/28/[address] [facility] [address] IMAGING FEMUR FRACTURE SURGERY Left X2 HYSTERECTOMY KNEE ARTHROPLASTY Bilateral KNEE ARTHROSCOPY W/ DEBRIDEMENT Bilateral PARTIAL HYSTERECTOMY [2] Past Medical History: Diagnosis Date Fractures Osteoarthritis Seasonal allergies * Campbell Ortega MD - 12/12/2024 9:42 AM EST H&P reviewed. The patient was examined and there are no changes to the H&P. Dr. Campbell Ortega MD MRCSEd Alarm Field Technician orthopedic surgery Adult Reconstruction and Trauma [facility]. Source Note - Campbell Ortega [...] R shoulder from September 2023 at [facility] were also reviewed: Near complete rotator [...] test performed by another physician/other qualified health physician locums urgent care (not separately reported); OR []Discussion of management or test interpretation with external physician/other qualified health physician locums urgent care/appropriate source (not separately reported) High risk of [...] from me. Dr. Campbell Ortega MD MRCSEd Alarm Field Technician orthopedic surgery Adult Reconstruction and Trauma [facility]. [1] Past Surgical History: Procedure Laterality Date CTA CHEST W IV CONTRAST 11/28/2021 CT CHEST ANGIOGRAM W AND/OR WO IV CONTRAST 11/28/[address] [facility] [address] IMAGING FEMUR FRACTURE SURGERY Left X2 [...] Procedure Summary Date: 12/12/24 Room / Location: [facility] OPERATING ROOM 02 / [facility] Operating Room Anesthesia Start: 1037 [...] ARTHROPLASTY (R) Operative Note Date: 12/12/2024 Location: [facility] OR Name: Keila Richardson, : 1970, Diagnosis Pre-op Diagnosis * Rotator cuff tear arthropathy of right shoulder [M75.101, M12.811] * Glenohumeral arthritis, right [M19.011] * Osteoporosis without pathological fracture [M81.0] * Class 3 obesity (CMS/HCC) [E66.813] Post-op Diagnosis * Rotator cuff tear arthropathy of right shoulder [M75.101, M12.811] * Glenohumeral arthritis, right [M19.011] * Osteoporosis without pathological fracture [M81.0] * Class 3 obesity (CMS/[facility]) [E66.813] Procedures REVERSE TOTAL SHOULDER ARTHROPLASTY 26888 - SD ARTHROPLASTY GLENOHUMERAL JOINT TOTAL SHOULDER Reverse Total [...] Primary: Campbell Ortega MD Resident - Assisting: MD Rufus Milton MSY3 Procedure Summary Anesthesia: General ASA: III Anesthesiologist Dr. Jose WONG Estimated Blood Loss: 150 mL Local anesthesia infiltrated 0.25% Marcaine and 1% lidocaine total 60 mL injected in the periarticular tissue. Total IV Fluids: Please see anesthesia chart mL Drains: * None in log * Implants Type Name Action Serial No. Total Joint BASEPLATE,COMP RVS,25MM - [id number] Implanted Total Joint GLENOID,36M,COMP,SHLDR,STD - [id number] Implanted Screw SCREW,6.5M,COMP,CNTRL,ST/RST,3 - [id number] Implanted Screw SCREW,3.5M, NON LCK,HEX4.75X35 - [id number] Implanted Screw SCREW,3.5M,LCK,HEX4.75X20,ST - [id number] Implanted Screw SCREW,3.5M,LCK,HEX4.75X20,ST - [id number] Implanted Screw SCREW,3.5M, NON LCK,HEX4.75X35 - [id number] Implanted Total Joint MINI HUMERAL STEM Implanted Total Joint CUP,HUMERAL,36M - [id number] Implanted Plate TRAY,HUMERAL,40X+3MM - [id number] Implanted Staff: Entertainment Centre Manager: Richard Langford RN Relief Entertainment Centre Manager: Hallie Bowen RN Relief Scrub: Monique Fabian [...] R shoulder from September 2023 at [facility] were also reviewed: Near complete rotator [...] followed by taking the patient to the [facility] and placed insupine position. Following [...] screw measuring 35 mm length and inferior gaqtlwpds36 mm. We then placed anterior 20 mm [...] by using the mini broach handles for Iwebalize. We gradually increased our broaching from size [...] for pain control. #3 patient will use Garfield 5 mg tablets to take 1 tablet [...] Plan of Treatment DateTypeDepartmentCare Team (Latest Contact Info)Oajiytoihyh30/19/2025 1:30 PM ESTOffice Visit [facility] [address] [place] [address] [place] [address] Campbell Ortega MD [address] [place] [address] [place] [address] documented as of this encounter Procedures Procedure NamePriorityDate/TimeAssociated DiagnosisCommentsPR ARTHROPLASTY GLENOHUMERAL JOINT TOTAL DQZXGHPL12/03/2025 10:41 AM EST Rotator cuff tear arthropathy of right shoulder Glenohumeral arthritis, right Osteoporosis without pathological fracture Class 3 obesity (CMS/HCC) POCT GLUCOSE METER UNSOLICITED REFAKXWFluyqob92/03/2025 10:04 AM EST documented in this encounter Results * POCT glucose meter (12/12/2024 10:04 AM EST)ComponentValueRef RangeTest Method Analysis TimePerformed AtPathologist SignatureGlucose EGS3621 - 105 mg/dL 12/12/2024 10:29 AM EST[facility] ([place])Comment:miwardSpecimen (Source)Anatomical Location / LateralityCollection Method / VolumeCollection TimeReceived TimeBloodCapillary blood specimen / Iaoadwj2712/12/2024 10:04 AM EST12/12/2024 10:29 AM EST Narrative [facility] - 12/12/2024 10:29 AM EST Waived Testing in the ED is performed under the ED CLIA certificate #[id number]. Authorizing ProviderResult TypeResult StatusVibibiana ARGUETA BLOOD ORDERABLESFinal ResultPerforming OrganizationAddressCity/State/ZIP CodePhone Number [facility] [address] [place] [address] documented in this encounter Visit Diagnoses Diagnosis Rotator cuff tear arthropathy of right shoulder- Primary Status post reverse arthroplasty of shoulder, right Rotator cuff tear arthropathy of right shoulder Glenohumeral arthritis, right Osteoporosis without pathological fracture Class 3 obesity (CMS/HCC) documented in this encounter Admitting Diagnoses Diagnosis Rotator cuff tear arthropathy of right shoulder documented in this encounter Administered Medications Medication OrderMAR ActionAction DateDoseRateSite acetaminophen (Tylenol) tablet 1,000 mg 1,000 mg, oral, Once, On Thu12/12/24 at 1000, For 1 dose, Preprocedure Given12/12/2024 10:00 AM EST1,000 mg BUPivacaine HCl (Marcaine) 0.5 % (5 mg/mL) injection As needed, Starting on Thu12/12/24 at 1237, Intraprocedure Given12/12/2024 12:37 PM EST30 mLOperative Site celecoxib (CeleBREX) capsule 400 mg 400 mg, oral, Once, On Thu12/12/24 at 1000, For 1 dose, Preprocedure, *If no cardiac history Given12/12/2024 9:57 AM ZVY644 mg dexAMETHasone (Decadron) injection 10 mg 10 mg, intravenous, Once, On Thu12/12/24 at 1000, For 1 dose, Preprocedure, Slow IV Push Given12/12/2024 9:58 AM EST10 mg gabapentin (Neurontin) capsule 300 mg 300 mg, oral, Once, On Thu12/12/24 at 1000, For 1 dose, Preprocedure Given12/12/2024 10:01 AM RHC305 mg HYDROmorphone (Dilaudid) injection 0.5 mg 0.5 mg, intravenous, Every 15 min PRN, severe pain (8-10 pain score), First choice for severe pain (8-10), Starting on Thu12/12/24 at 1318, For 4 doses, Recovery (only) Given12/12/2024 1:55 PM EST0.5 mg lactated Ringer's infusion 1 mL/hr, intravenous, Continuous, Starting on Thu12/12/24 at 1000, For 1 day, Preprocedure, Indication: Perioperative hydration Given12/12/2024 1:09 PM ZIT816 mLContinued by Spqyqfafng53/03/2025 10:37 AM EST1 mL/hr1 mL/hrNew Bag12/12/2024 10:16 AM EST1 mL/hr1 mL/hr lidocaine-EPINEPHrine (PF) (Xylocaine W/EPI) 1 %-1:200,000 injection As needed, Starting on Thu12/12/24 at 1237, Intraprocedure Given12/12/2024 12:37 PM EST30 mLOperative Site prochlorperazine (Compazine) injection 5 mg 5 mg, [...] Preprocedure sodium chloride irrigation solution 0.9 % As needed, Starting on Thu12/12/24 at 1135, Intraprocedure Given12/12/2024 11:35 AM EST1,000 mLOperative Site tranexamic acid (Lysteda) tablet 1,950 mg 1,950 mg, oral, Once, On Thu12/12/24 at 1000, For 1 dose, Preprocedure, Do not crush, chew, or split. Given12/12/2024 9:58 AM EST1,950 mgdocumented in this encounter Active and Recently Administered Medications Due to Daylight Saving Time, this section may contain times in both EDT and EST. Medication Order/ acetaminophen (Tylenol) tablet 1,000 mg (COMPLETED) 1,000 [...] Team MemberRelationshipSpecialtyStart DateEnd Date Anastacia Ham MD [address] [place] [address] PCP - General09/27/21documented as of this encounter
--- OUTSIDE RECORDS SUMMARY | 2024-12-14 14:26 | XMS_ITS | Clinical Summary ---
Author Organization [employer] tem Address [id number] [address] [place] [address] Care Team Providers Care Arm Maker Name Role Phone Anastacia Ham MD Primary Care Provider [phone] Allergies Active AllergyReactionsCriticalityNoted ViapGahaycdlPuwiyzjkFughLjfvtr02/03/2024 Blisters skin, scars skin Medications MedicationSigDispense QuantityRefillsLast FilledStart DateEnd DateStatus metFORMIN (FORTAMET) 500 MG (OSM) 24 hr tablet Take 1 tablet (500 mg total) by mouth Daily before evening meal. Takes for weight lossActive phentermine (ADIPEX-P) 37.5 mg tablet Take 1 tablet (37.5 mg total) by mouth every morning before breakfast.Active latanoprost (XALATAN) 0.005 % ophthalmic solution Administer 1 drop to both eyes nightly.Active magnesium oxide 200 mg magnesium tablet Take 200 mg by mouth nightly as needed.Active ascorbic acid (VITAMIN C) 500 mg tablet Take 2 tablets (1,000 mg total) by mouth in the morning.Active omega 0-txq-pnq-fish oil 100-400-1,000 mg capsule Take 1 capsule by mouth in the morning. [place] 3 600 mg, d3 50 mg.Active cholecalciferol, vitamin D3, 50 mcg (2,000 unit) tablet,chewable Chew 1 tablet and swallow in the morning.Active zinc acetate 50 mg (zinc) capsule Take 1 tablet by mouth in the morning.Active BOSWELLIA JORDIN EXTRACT ORAL Take 1 capsule by mouth in the morning.Active turmeric root extract 500 mg capsule Take 1 capsule by mouth in the morning.Active ldxknaif-zbdh-KS-calcium &mins (THERAGRAN-M) 9 mg iron-400 mcg tablet Take 1 tablet by mouth in the morning.Active ibuprofen (ADVIL,MOTRIN) 200 mg tablet Take 1 tablet (200 mg total) by mouth every 6 (six) hours as needed for pain. Active sulfamethoxazole-trimethoprim (BACTRIM DS) 800-160 mg per tablet Take 1 tablet by mouth in the morning and 1 tablet before bedtime. Do all this for 7 days. 14 tablet 5Active Active Problems ProblemNoted DateDiagnosed DateOAB (overactive bladder)12/13/2024Mixed stress and urge urinary twsckccydrbl01/04/2025reast fwbxte6701/10/20244853Jdpgjalm48/01/2024 Wrynxrr4508/11/2023Visual impairment Overview (03/11/2024): glasses Resolved Problems ProblemNoted DateDiagnosed DateResolved DateClosed fracture of right distal femurEczema of both handsElevated erythrocyte sedimentation rate Encounters DateTypeDepartmentCare CyatAgesqylzhao67/31/2025 9:00 AM EDTOffice Visit [facility] [address] [place] [address] Lyn Oleary MD Mixed stress and urge urinary incontinence (Primary Dx); OAB (overactive bladder); Acute cystitis without ikpuplcom04/31/7012Udhfmp94/03/9316Aypihc71/27/2025 11:15 AM EDT - 10/05/2024 11:59 PM EDTHospital Encounter [facility] [address] [place] [address] Encounter for screening mammogram for breast cancer Discharge Disposition: Home10/05/2024Travelfrom Last 3 Months Family History Medical HistoryRelationNameCommentsHypertensionBrotherHypertensionFatherBreast cancerMaternal AuntOvarian cancerMaternal AuntLung cancerMaternal Grandfather Stomach cancerMaternal GrandmotherAnesthesia problemsMotherslow to wake HypertensionMotherSkin cancerMotherColon cancerPaternal GrandfatherDiabetes Sister 1FibromyalgiaSister 1HypertensionSister 1LupusSister 1HypertensionSister 2HypertensionSister 3HypertensionSister 4RelationNameStatusCommentsBrotherAlive FatherDeceasedMaternal AuntMaternal GrandfatherMaternal GrandmotherMotherAlive Paternal GrandfatherSister 1AliveSister 2AliveSister 3AliveSister 4AliveSon 1 AliveSon 2Alive Social History Tobacco UseTypesPacks/DayYears UsedDateSmoking Tobacco: FormerCigarettes0.326 1994 - mokeless Tobacco: Never Tobacco Cessation:Counseling Given: Not Answered Alcohol UseStandard Drinks/WeekCommentsYes0 (1 standard drink = 0.6 oz pure alcohol)1 per monthPHQ-2AnswerDate RecordedTotal Wrzpi9775ChildcareAnswer Date BrkcppnbArbgbyjhoFizjszd51/12/2019EmploymentAnswerDate RecordedEmployment Wgzrzuc4607/21/2018Hunger ScreeningAnswerDate RecordedWithin the past 12 months we worried whether our food would run out before we got money to buy more.Never True08/03/2024Within the past 12 months the food we bought just didn't last and we didn't have money to get more.Never True08/03/2024CommentsNoSex and Gender InformationValueDate RecordedSex Assigned at BirthNot on fileLegal Sex Qtcvwr7009/14/2014 12:11 PM EDTGender IdentityNot on fileSexual OrientationNot on file Last Filed Vital Signs Vital SignReadingTime TakenCommentsBlood Ipeoydky303/8010 9:15 AM EDT Ykeol9210/25/2025 3:00 PM NNDKrdjnnaxkly31.3 ??C (97.3 ??F)06/21/2024 12:09 PM EDTRespiratory Jviz839306/21/2024 1:30 PM EDTOxygen Xjamsmvjaz65%06/21/2024 2:00 PM EDTInhaled Oxygen Concentration--Ikqshr779.4 kg (287 lb 6.4 oz)12/09/2024 9:15 AM DILIjqshl358.1 cm (5' 10.5 )12/09/2024 9:15 AM EDTBody Mass Index40.65 12/09/2024 9:15 AM EDT Plan of Treatment DateTypeDepartmentCare Team (Latest Contact Info)Pzfjozgenej27/16/2025 8:30 AM ESTSupport Visit [facility] On [address] [address] 02/07/2025 8:00 AM ESTHospital Encounter [facility] [address] [place] [address] [address] [place] [address] Lyn Oleary MD [address] [address] 02/07/2025 8:00 AM EST - 02/07/2025 8:45 AM ESTSurgery [facility] [address] [place] [address] [address] [place] [address] Lyn Oleary MD [address] [address] CYSTOSCOPY INJECTION BOTOX [14832 (CPT??) +1 more]02/20/2025 11:30 AM ESTOffice Visit [facility] - Urogynecology [address] [address] Lyn Oleary MD [address] [address] NamePriorityAssociated DiagnosesDate/TimeCYSTOSCOPY INJECTION BOTOX OAB (overactive bladder) Mixed stress and urge urinary incontinence 02/07/2025 8:00 AM ESTHealth MaintenanceDue DateLast DoneCommentsAdult BMI Follow Up Plan05/24/1989DTaP,Tdap and Td Vaccines (1 - Tdap)05/24/1990Pap Smear 05/24/1992Zoster (Shingles) Vaccine (1 of 2)2COVID-19 Vaccine (3 - season)504/, 05/16/2020Influenza Ipijelu3610/10/2024 Depression Pgatjpkqy38dult BMI Urnkvpgko95 Tobacco Tzlzodlck23 Goals GoalPatient Goal TypeAssociated ProblemsRecent ProgressPatient-Stated?Author Autogenerated Goal Care PlanAutogenerated ProblemNoGriffin, [employer] Not on file Procedures Procedure NamePriorityDate/TimeAssociated DiagnosisCommentsMAMM SCREENING BILATERAL W JYFSbelrys94/27/2025 11:45 AM EDT Encounter for screening mammogram for breast cancer from Last 3 Months Results * Mammography screening bilateral with CAD (10/05/2024 11:45 AM EDT)Anatomical RegionLateralityModalityBreastBilateralMammographySpecimen (Source)Anatomical Location / LateralityCollection Method / VolumeCollection TimeReceived Time 10/06/2024 1:31 PM EDT Narrative 10/06/2024 1:32 PM EDT KEILA RICHARDSON 1970 [id number] EXAM: MAMM SCREENING BILATERAL W CAD, 10/05/2024 11:23 AM CLINICAL INDICATIONS: Screening, Encounter for screening mammogram for breast cancer COMPARISON: No prior studies currently available for comparison. TECHNIQUE: Bilateral digital tomosynthesis MLO and CC views of the breasts were obtained, with creation of synthetic 2D views. Computer aided detection was utilized. FINDINGS: The breasts are almost entirely fatty. There are no suspicious masses, calcifications, or areas of architectural distortion. Benign post excisional findings of the right breast. IMPRESSION: No mammographic evidence of malignancy. BI-RADS: BI-RADS 1 - Negative RECOMMENDATION: ??Routine screening mammogram in 1 year. RISK ASSESSMENT: TC Lifetime risk: 12.5%. The patient's reported personal and family medical history was used calculate their Tyrer-Cuzick lifetime risk of malignancy. Scores less than 20% are not considered high risk per ACR guidelines and patient should continue with the above recommendation. Additionally, this patient's reported personal and/or family history of cancer indicates they may benefit from a genetic counseling consultation and possible genetic testing. ??If patient has not already completed this evaluation, please consider placing a referral to [facility] via [facility] or . ??For questions regarding this, please call [phone]. The patient was offered information on genetic counseling at the time of exam. Finalized by Robert Morel MD on 10/06/2024 1:32 PM 1 a MAMM 1 YR FDA Accredited Performing Facility: [facility] - Mammography/DEXA Imaging [address] [facility] [address] Procedure Note Robert Morel MD - 10/06/2024 KEILA RICHARDSON 1970 [id number] EXAM: MAMM SCREENING BILATERAL W CAD, 10/05/2024 11:23 AM CLINICAL INDICATIONS: Screening, Encounter for screening mammogram forbreast cancer COMPARISON: No prior studies currently available for comparison. TECHNIQUE: Bilateral digital tomosynthesis MLO and CC views of the breastswere obtained, with creation of synthetic 2D views. Computer aideddetection was utilized. FINDINGS: The breasts are almost entirely fatty. There are no suspicious masses, calcifications, or areas of architectural distortion. Benign post excisional findings of the right breast. IMPRESSION: No mammographic evidence of malignancy. BI-RADS: BI-RADS 1 - Negative RECOMMENDATION: Routine screening mammogram in 1 year. RISK ASSESSMENT: TC Lifetime risk: 12.5%. The patient's reported personal and family medical history was usedcalculate their Tyrer-Cuzick lifetime risk of malignancy. Scores less than20% are not considered high risk per ACR guidelines and patient shouldcontinue with the above recommendation. Additionally, this patient's reported personal and/or family history ofcancer indicates they may benefit from a genetic counseling consultationand possible genetic testing. If patient has not already completed thisevaluation, please consider placing a referral to [facility] via [facility] or . For questions regarding this,please call [phone]. The patient was offered information on geneticcounseling at the time of exam. Finalized by Robert Morel MD on 10/06/2024 1:32 PM 1 a MAMM 1 YR FDA Accredited Performing Facility: [facility] - Mammography/DEXA Imaging [address] [facility] [address] Authorizing ProviderResult TypeResult StatusJessmorena Alan MDIMG MAMMOGRAPHY ORDERABLESFinal Result from Last 3 Months Additional Health Concerns Active ProblemsNoted DateDiagnosed DateAutogenerated Xakktnj3312/13/2024 Insurance * Guarantor: Keila RichardsonAccount TypeRelation to PatientDate of BirthPhone Billing AddressPersonal/JggdzjDkbx92/15/1971 [facility] [place] [address] Care Teams Team MemberRelationshipSpecialtyStart DateEnd Date [place] [address] [place] [address] PCP - GeneralFamily Medicine10/29/23
--- OUTSIDE RECORDS SUMMARY | 2024-12-14 14:26 | XMS_ITS | Encounter Summary ---
Author Organization [facility] tem Address [id number] [address] [place] [address] Care Team Providers Care Gum Machine Operator Name Role Phone Anastacia Ham MD Primary Care Provider [phone] Encounter Details DateTypeDepartmentCare Team (Latest Contact Info)Uwfwbgzuvga02/31/2025Travel Social History Tobacco UseTypesPacks/DayYears UsedDateSmoking Tobacco: FormerCigarettes0.326 1994 - mokeless Tobacco: NeverAlcohol UseStandard Drinks/WeekCommentsYes0 (1 standard drink = 0.6 oz pure alcohol)1 per monthPHQ-2AnswerDate RecordedTotal Zntzv0985ChildcareAnswerDate FffyswjhFqglplicmUckgeop32/12/2019Employment AnswerDate VzfkngdiBtggynqxgyZmqkhhy87/12/2019Hunger ScreeningAnswerDate RecordedWithin the past 12 months we worried whether our food would run out before we got money to buy more.Never True08/03/2024Within the past 12 months the food we bought just didn't last and we didn't have money to get more.Never True08/03/2024CommentsNoSex and Gender InformationValueDate RecordedSex Assigned at BirthNot on fileLegal OjpNpmowe80/06/2015 12:11 PM EDTGender IdentityNot on fileSexual OrientationNot on filedocumented as of this encounter Plan of Treatment DateTypeDepartmentCare Team (Latest Contact Info)Uacvjsiqxfo05/16/2025 8:30 AM ESTSupport Visit [facility] On [address] [address] 02/07/2025 8:00 AM ESTHospital Encounter [facility] [address] [facility] [address] [place] [address] Lyn Oleary MD [address] [facility] [address] [place] [address] 02/07/2025 8:00 AM EST - 02/07/2025 8:45 AM ESTSurgery [facility] [address] [place] [address] 2 [place] [address] Lyn Oleary MD [address] [facility] [address] [place] [address] CYSTOSCOPY INJECTION BOTOX [02286 (CPT??) +1 more]02/20/2025 11:30 AM ESTOffice Visit [facility] [address] [facility] [address] [facility] [address] [place] [address] Lyn Oleary MD [address] [facility] [address] [place] [address] NamePriorityAssociated DiagnosesDate/TimeCYSTOSCOPY INJECTION BOTOX OAB (overactive bladder) Mixed stress and urge urinary incontinence 02/07/2025 8:00 AM ESTdocumented as of this encounter Visit Diagnoses Not on filedocumented in this encounter Additional Health Concerns AssessmentNoted TimePHQ-9 Depression Total Score: 11:39 AM EST documented as of this encounter Care Teams Team MemberRelationshipSpecialtyStart DateEnd Date [place] [address] [place] [address] PCP - GeneralFamily Medicine10/29/23documented as of this encounter
--- OUTSIDE RECORDS SUMMARY | 2024-12-14 14:26 | XMS_ITS | Encounter Summary ---
Author Organization [facility] Address [address] [place] [address] Care Team Providers Care Tanning Solution Maker Name Role Phone Anastacia Ham MD Primary Care Provider [phone] Encounter Details DateTypeDepartmentCare Team (Latest Contact Info)Aiwvckbgpjo24/30/2025Abstract [facility] [place] [facility] [address] [place] [phone] Anastacia Ham MD [address] [place] [address] Social History Tobacco UseTypesPacks/DayYears UsedDateSmoking Tobacco: NeverSmokeless Tobacco: NeverPHQ-2AnswerDate RecordedPatient Health Questionnaire-2 Zrlmz760 CommentsNoSex and Gender InformationValueDate RecordedSex Assigned at BirthNot on fileLegal IhmOhqftk27/15/2023 6:54 PM EDTGender IdentityNot on file Sexual OrientationNot on filedocumented as of this encounter Plan of Treatment Not on file documented as of this encounter Visit Diagnoses Not on filedocumented in this encounter Care Teams Team MemberRelationshipSpecialtyStart DateEnd Date Anastacia Ham MD [address] [place] [address] PCP - GeneralFamily Medicine09/28/23documented as of this encounter
--- OUTSIDE RECORDS SUMMARY | 2024-12-14 14:26 | XMS_ITS | Encounter Summary ---
Author Organization [facility] Address [address] [place] [address] Care Team Providers Care Motel Front Desk Attendant Name Role Phone Anastacia Ham MD Primary Care Provider [phone] Encounter Details DateTypeDepartmentCare Team (Latest Contact Info)Cxlfshdnwbc27/25/2024Clinisync Result Encounter [facility] External Department Unsolicited Leah Berger, KELVIN [address] [place] [address] [place] [address] Social History Tobacco UseTypesPacks/DayYears UsedDateSmoking Tobacco: NeverSmokeless Tobacco: NeverPHQ-2AnswerDate RecordedPatient Health Questionnaire-2 Hbthj842 CommentsNoSex and Gender InformationValueDate RecordedSex Assigned at BirthNot on fileLegal CyrTtdtnp23/15/2023 6:54 PM EDTGender IdentityNot on file Sexual OrientationNot on filedocumented as of this encounter Functional Status * Over the past 2 weeks, how often have you been bothered by any of the following problems?QuestionAnswerDate of AssessmentAuthorLittle interest or pleasure in doing thingsNot at all11/24/2024 2:01 PM Erika Reynolds MA Feeling down, depressed, or hopelessNot at all11/24/2024 2:01 PM Erika Reynolds, MAPatient Health Questionnaire-2 Nsnth547 2:01 PM Erika Reynolds MA documented as of this encounter Plan of Treatment Not on file documented as of this encounter Procedures Procedure NamePriorityDate/TimeAssociated DiagnosisCommentsBI MAMMOGRAM DIAGNOSTIC RIGHT11/04/2023 11:50 AM EDT documented in this encounter Results * Right diagnostic mammogram (11/04/2023 11:50 AM EDT)Anatomical Region LateralityModalityBreastRightMammographySpecimen (Source)Anatomical Location / LateralityCollection Method / VolumeCollection TimeReceived Time11/04/2023 11:50 AM EDT Narrative 11/04/2023 11:51 AM EDT [facility] ?[address] ? [place] [address] ? Mammography Report ? Signed ? Patient: KEILA RICHARDSON ?MR#: [id number] ?? : 1970 ?Acct:[id number] ?? Age/Sex: 53 / F ?ADM Date: 11/04/23 ?? Loc: MAMMO ? Attending Dr: Leah Berger ? Ordering Physician: Leah Berger ?Results: ? Date of Service: 11/04/23 ?Follow Up: ? Procedure(s): MM diagnostic mammo unilat RT ?? Accession Number(s): [id number] ? cc: Leah Berger ? Patient Name: ? KEILA RICHARDSON ? MR#: [id number] ? : 1970 ? Exam Date: 11/04/2023 ?? Ordering Doctor: KELVIN Berger . ? RADIOLOGY REPORT ? PROCEDURE: ? MM DIAGNOSTIC MAMMO UNILAT RT, 11/04/2023, 11:03 ?? US BREAST RT LIMITED, 11/04/2023, 11:30 ? COMPARISON: ? MM TOMOSYNTHESIS SCREENING BI, 10/01/2023. ? INDICATIONS: ? Abnormal Mammogram R92.8 ? Calculator Name ? NCI Breast Cancer Risk Assessment Tool ?? 5 Year Breast Cancer Risk ? 1.20% ?? Lifetime Breast Cancer Risk ? 9.60% ?? Personal Breast Cancer ?No ?? Personal Ovarian Cancer ? No ?? Treatments ? None ?? Family Cancers ? None ? LOCATION: ? [facility] ? BREAST COMPOSITION: ? There are scattered areas of fibroglandular density. ? FINDINGS: ? DIAGNOSTIC CATEGORY 4--SUSPICIOUS FOR MALIGNANCY. FINDING DOES NOT EXHIBIT ?? CLASSIC FINDINGS OF BREAST CANCER: ? RIGHT BREAST: ??Spot magnification views demonstrate a slightly irregular 7 x 4 ?? x 5 mm mass within the anterior lower-outer quadrant. ??Ultrasound evaluation ?? demonstrates a mixed cystic and solid irregular mass 6 x 4 x 3 millimeters ?? which is taller than wide and is slightly hyperechoic along its margins. ? Ultrasound-guided tissue sampling is recommended. ? RECOMMENDATIONS: ? ULTRASOUND-GUIDED CORE BIOPSY: RIGHT BREAST ? PLEASE NOTE: ??A NORMAL MAMMOGRAM DOES NOT EXCLUDE THE POSSIBILITY OF BREAST ?? CANCER. ??A CLINICALLY SUSPICIOUS PALPABLE LUMP SHOULD BE BIOPSIED. ? Dictated by: Jose Angel Saldana M.D. on 11/04/2023 at 11:42 ? Approved by: Jose Angel Saldana M.D. on 11/04/2023 at 11:50 ? Dictated By: ?Jose Angel Saldana M.D. ? Signed By: ?11/04/23 1151 ? DD/ 1150 ? TD/TT: ? Contracts Specialist: Procedure Note Radiology, Radiologist, MD - 11/04/2023 [place] [address] Mammography Report Signed Patient: KEILA RICHARDSON#: [id number] : 1970Acct:[id number] Age/Sex: 53 / FADM Date: 11/04/23 Loc: MAMMO Attending Dr: Leah Berger Ordering Physician: Leah BergerResults: Date of Service: 11/04/23Follow Up: Procedure(s): MM diagnostic mammo unilat RT Accession Number(s): [id number] cc: Leah Berger Patient Name: KEILA RICHARDSON MR#: [id number] : 1970 Exam Date: 11/04/2023 Ordering Doctor: KELVIN Berger . RADIOLOGY REPORT PROCEDURE: MM DIAGNOSTIC MAMMO UNILAT RT, 11/04/2023, 11:03 US BREAST RT LIMITED, 11/04/2023, 11:30 COMPARISON: MM TOMOSYNTHESIS SCREENING BI, 10/01/2023. INDICATIONS: Abnormal Mammogram R92.8 Calculator Name NCI Breast Cancer Risk Assessment Tool 5 Year Breast Cancer Risk 1.20% Lifetime Breast Cancer Risk 9.60% Personal Breast Cancer No Personal Ovarian Cancer No Treatments None Family Cancers None LOCATION: [facility] BREAST COMPOSITION: There are scattered areas of fibroglandulardensity. FINDINGS: DIAGNOSTIC CATEGORY 4--SUSPICIOUS FOR MALIGNANCY. FINDING DOES NOT EXHIBIT CLASSIC FINDINGS OF BREAST CANCER: RIGHT BREAST: Spot magnification views demonstrate a slightly irregular 7x 4 x 5 mm mass within the anterior lower-outer quadrant. Ultrasoundevaluation demonstrates a mixed cystic and solid irregular mass 6 x 4 x 3 millimeters which is taller than wide and is slightly hyperechoic along its margins. Ultrasound-guided tissue sampling is recommended. RECOMMENDATIONS: ULTRASOUND-GUIDED CORE BIOPSY: RIGHT BREAST PLEASE NOTE: A NORMAL MAMMOGRAM DOES NOT EXCLUDE THE POSSIBILITY OFBREAST CANCER. A CLINICALLY SUSPICIOUS PALPABLE LUMP SHOULD BE BIOPSIED. Dictated by: Jose Angel Saldana M.D. on 11/04/2023 at 11:42 Approved by: Jose Angel Saldana M.D. on 11/04/2023 at 11:50 Dictated By: Jose Angel Saldana M.D. Signed By:11/04/23 1151 DD/ 1150 TD/TT: Contracts Specialist: Authorizing ProviderResult TypeResult StatusAmy Ab PAIMG BI PROCEDURESFinal Result documented in this encounter Visit Diagnoses Not on filedocumented in this encounter Care Teams Team MemberRelationshipSpecialtyStart DateEnd Date Anastacia Ham MD [address] [place] [address] PCP - GeneralFamily Medicine09/28/23documented as of this encounter
--- OUTSIDE RECORDS SUMMARY | 2024-12-14 14:26 | XMS_ITS | Encounter Summary ---
Author Organization [facility] Address [address] [place] [address] Care Team Providers Care Pawn Shop Keeper Name Role Phone Anastacia Ham MD Primary Care Provider [phone] Reason for Visit * ReasonOnset VhwmIcfvbigfRLV20/30/2025 Encounter Details DateTypeDepartmentCare Team (Latest Contact Info)Tdiniytirmp87/30/2025Telephone [facility] [address] [place] [phone] Anastacia Ham MD [address] [place] [address] FYI Social History Tobacco UseTypesPacks/DayYears UsedDateSmoking Tobacco: NeverSmokeless Tobacco: NeverPHQ-2AnswerDate RecordedPatient Health Questionnaire-2 Dtvwl244 CommentsNoSex and Gender InformationValueDate RecordedSex Assigned at BirthNot on fileLegal TcdIsdqjb85/15/2023 6:54 PM EDTGender IdentityNot on file Sexual OrientationNot on filedocumented as of this encounter Miscellaneous Notes * Telephone Encounter - KELVIN Dsouza - 12/09/2024 8:08 AM EDT Acknowledged * Telephone Encounter - Erika Elizabeth MA - 12/08/2024 1:26 PM EDT Hi, this is Keila. My birthday is [id number]I had my labs done for my shoulder surgery and long story short, my blood work came back that I had a you t I. She said they sent something over to you guys, so maybe you guys could start me on something, but I just want to Let you know that I actually see my bladder dr. tomorrow morning at 9am for a breastfeeding peer counselor because I had that surgery and had that VTX injected for the I got to go all the time bladder shoes. Anyhow, I am going to have her look at my lab work and she will probably just write me up something. So if you gumargy get something I just did not want you to call in an antibiotic as well because I see her in the morning and I am sure she will.So I can let you know the outcome of that. I will call back and let you know if she did just to be sure, but you will get Information from that blood work because they said they sent it over to my primary. So although we will get it all right, I just want to let you know that I do see her tomorrow morning. You have any questions? My phone numbers [phone]. Thank you so much, have a great day. Pt stated she is seeing urology tomorrow and will have them address the UTI documented in this encounter Plan of Treatment Not on file documented as of this encounter Visit Diagnoses Not on filedocumented in this encounter Care Teams Team MemberRelationshipSpecialtyStart DateEnd Date Anastacia Ham MD [address] [place] [address] PCP - GeneralFamily Medicine09/28/23documented as of this encounter
--- OUTSIDE RECORDS SUMMARY | 2024-12-14 14:26 | XMS_ITS | Encounter Summary ---
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) Social History Tobacco UseTypesPacks/DayYears UsedDateSmoking Tobacco: FormerCigarettesQuit: mokeless Tobacco: NeverAlcohol UseStandard Drinks/WeekCommentsYes0 (1 standard drink = 0.6 oz pure alcohol)BEER EVERY COUPLE WEEKSPHQ-2AnswerDate RecordedPatient Health Questionnaire-2 Imcho247UT Safety & Environment AnswerDate RecordedFear of Current or Ex-PartnerNot on file04/02/2023Emotionally AbusedNot on file04/02/2023hysically AbusedNot on 04/02/2023Sexually Abused Not on file04/02/2023hysically or Sexually AbusedNot on file04/02/2023 CommentsNoSex and Gender InformationValueDate RecordedSex Assigned at Eyjtyb2111/11/2024 11:30 AM EDTLegal WprTlliih02/29/2022 10:52 PM EDTGender XdurgisuXuprom34/08/2025 8:23 AM EDTSexual OrientationHeterosexual or Straight 11/16/2024 8:23 AM EDTdocumented as of this encounter Plan of Treatment DateTypeDepartmentCare Team (Latest Contact Info)Oppzwdxflum18/19/2025 1:30 PM ESTOffice Visit [facility] [address] [place] [address] [place] [phone] Campbell Ortega MD [address] [place] [address] [place] [phone] NameTypePriorityAssociated DiagnosesOrder ScheduleXR shoulder 2+ views right ImagingRoutine Status post reverse total replacement of right shoulder Expected: 12/13/2024, Expires: 12/13/2025documented as of this encounter Visit Diagnoses Diagnosis Status post reverse total replacement of right shoulder- Primary documented in this encounter Care Teams Team MemberRelationshipSpecialtyStart DateEnd Date Anastacia Ham MD [address] [facility] PCP - General09/27/21documented as of this encounter
--- OUTSIDE RECORDS SUMMARY | 2024-12-14 14:26 | XMS_ITS | Encounter Summary ---
Author Organization [facility] Address [address] [place] [address] Care Team Providers Care Leadership Development Consultant Name Role Phone Anastacia Ham MD Primary Care Provider [phone] Encounter Details DateTypeDepartmentCare Team (Latest Contact Info)Yqmxsgewyij28/30/2025Abstract [facility] [address] [place] [phone] Anastacia [place] MD [address] [place] [address] Social History Tobacco UseTypesPacks/DayYears UsedDateSmoking Tobacco: NeverSmokeless Tobacco: NeverPHQ-2AnswerDate RecordedPatient Health Questionnaire-2 Uguxl546 CommentsNoSex and Gender InformationValueDate RecordedSex Assigned at BirthNot on fileLegal KozZhwneb25/15/2023 6:54 PM EDTGender IdentityNot on file Sexual OrientationNot on filedocumented as of this encounter Plan of Treatment Not on file documented as of this encounter Visit Diagnoses Not on filedocumented in this encounter Care Teams Team MemberRelationshipSpecialtyStart DateEnd Date Anastacia Ham MD [address] [place] [address] PCP - GeneralFamily Medicine09/28/23documented as of this encounter
--- OUTSIDE RECORDS SUMMARY | 2024-12-14 14:26 | XMS_ITS | Encounter Summary ---
Author Organization [facility] Address [address] [place] [address] Care Team Providers Care Senior Oracle Applications Developer Name Role Phone Anastacia Ham MD Primary Care Provider [phone] Encounter Details DateTypeDepartmentCare Team (Latest Contact Info)Dpudjrakdfr20/22/2024Clinisync Result Encounter [facility] External Department Unsolicited Leah Berger, KELVIN [address] [place] [address] [place] [address] Social History Tobacco UseTypesPacks/DayYears UsedDateSmoking Tobacco: NeverSmokeless Tobacco: NeverPHQ-2AnswerDate RecordedPatient Health Questionnaire-2 Fgyek252 CommentsNoSex and Gender InformationValueDate RecordedSex Assigned at BirthNot on fileLegal AqeSkbzmp02/15/2023 6:54 PM EDTGender IdentityNot on file Sexual OrientationNot on filedocumented as of this encounter Functional Status * Over the past 2 weeks, how often have you been bothered by any of the following problems?QuestionAnswerDate of AssessmentAuthorLittle interest or pleasure in doing thingsNot at all11/24/2024 2:01 PM Erika Reynolds MA Feeling down, depressed, or hopelessNot at all11/24/2024 2:01 PM Erika Reynolds, MAPatient Health Questionnaire-2 Pdccg951 2:01 PM Erika Reynolds MA documented as of this encounter Plan of Treatment Not on file documented as of this encounter Procedures Procedure NamePriorityDate/TimeAssociated DiagnosisCommentsMM TOMOSYNTHESIS SCREENING BI10/01/2023 4:19 PM EDT documented in this encounter Results * MM TOMOSYNTHESIS SCREENING BI (10/01/2023 4:19 PM EDT)Anatomical Region LateralityModalityOtherSpecimen (Source)Anatomical Location / Laterality Collection Method / VolumeCollection TimeReceived Time10/01/2023 4:19 PM EDT Narrative 10/01/2023 4:20 PM EDT [facility] ?[address] ? [place] [address] ? Mammography Report ? Signed ? Patient: KEILA RICHARDSON ?MR#: [id number] ?? : 1970 ?Acct:[id number] ?? Age/Sex: 53 / F ?ADM Date: 10/01/23 ?? Loc: MAMMO ? Attending Dr: Leah Berger ? Ordering Physician: Leah Berger ?Results: ? Date of Service: 10/01/23 ?Follow Up: ? Procedure(s): MM tomosynthesis screening BI ?? Accession Number(s): [id number] ? cc: Leah Berger ? Patient Name: ? KEILA RICHARDSON ? MR#: [id number] ? : 1970 ? Exam Date: 10/01/2023 ?? Ordering Doctor: KELVIN Berger . ? RADIOLOGY REPORT ? PROCEDURE: ? MM TOMOSYNTHESIS SCREENING BI ? COMPARISON: ? [facility] MAMM SCREEN JENNIFER W CAD, 04/13/2018. ? INDICATIONS: ? Screening ? Calculator Name ? NCI Breast Cancer Risk Assessment Tool ?? 5 Year Breast Cancer Risk ? 1.20% ?? Lifetime Breast Cancer Risk ? 9.60% ?? Personal Breast Cancer ?No ?? Personal Ovarian Cancer ? No ?? Treatments ? None ?? Family Cancers ? None ? LOCATION: ? [facility] ? BREAST COMPOSITION: ? There are scattered areas of fibroglandular density. ? FINDINGS: ? DIAGNOSTIC CATEGORY 0--INCOMPLETE: NEED ADDITIONAL IMAGING EVALUATION. ? RIGHT BREAST: ??2 adjacent 5 mm slightly spiculated nodules within anterior ?? lower-outer quadrant. ??Spot magnification views and ultrasound evaluation ?? recommended. ? LEFT BREAST: ??No significant suspicious finding. ??Scattered benign-appearing ?? calcifications are present. ??No significant change has occurred. ? RECOMMENDATIONS: ? ADDITIONAL MAMMOGRAPHIC VIEWS REQUIRED: RIGHT BREAST - RIGHT CRANIOCAUDAL SPOT ?? MAGNIFICATION VIEW - RIGHT OBLIQUE SPOT MAGNIFICATION VIEW - ? ULTRASOUND: RIGHT BREAST ? PLEASE NOTE: ??A NORMAL MAMMOGRAM DOES NOT EXCLUDE THE POSSIBILITY OF BREAST ?? CANCER. ??A CLINICALLY SUSPICIOUS PALPABLE LUMP SHOULD BE BIOPSIED. ? Dictated by: Jose Angel Saldana M.D. on 10/01/2023 at 16:15 ? Approved by: Jose Angel Saldana M.D. on 10/01/2023 at 16:19 ? Dictated By: ?Jose Angel Saldana M.D. ? Signed By: ?10/01/23 1620 ? DD/ 1619 ? TD/TT: ? Jockey Agent: Procedure Note Radiology, Radiologist, MD - 10/01/2023 [place] [address] Mammography Report Signed Patient: THIEN RICHARDSON#: [id number] : 1970Acct:[id number] Age/Sex: 53 / FADM Date: 10/01/23 Loc: MAMMO Attending Dr: Leah Berger Ordering Physician: Leah RameyResults: Date of Service: 10/01/23Follow Up: Procedure(s): MM tomosynthesis screening BI Accession Number(s): [id number] cc: Leah Berger Patient Name: KEILA RICHARDSON MR#: [id number] : 1970 Exam Date: 10/01/2023 Ordering Doctor: KELVIN Berger . RADIOLOGY REPORT PROCEDURE: MM TOMOSYNTHESIS SCREENING BI COMPARISON: MG MAMM SCREEN JENNIFER W CAD, 04/13/2018. INDICATIONS: Screening Calculator Name NCI Breast Cancer Risk Assessment Tool 5 Year Breast Cancer Risk 1.20% Lifetime Breast Cancer Risk 9.60% Personal Breast Cancer No Personal Ovarian Cancer No Treatments None Family Cancers None LOCATION: [facility] BREAST COMPOSITION: There are scattered areas of fibroglandulardensity. FINDINGS: DIAGNOSTIC CATEGORY 0--INCOMPLETE: NEED ADDITIONAL IMAGING EVALUATION. RIGHT BREAST: 2 adjacent 5 mm slightly spiculated nodules within anterior lower-outer quadrant. Spot magnification views and ultrasound evaluation recommended. LEFT BREAST: No significant suspicious finding. Scatteredbenign-appearing calcifications are present. No significant change has occurred. RECOMMENDATIONS: ADDITIONAL MAMMOGRAPHIC VIEWS REQUIRED: RIGHT BREAST - RIGHT CRANIOCAUDALSPOT MAGNIFICATION VIEW - RIGHT OBLIQUE SPOT MAGNIFICATION VIEW - ULTRASOUND: RIGHT BREAST PLEASE NOTE: A NORMAL MAMMOGRAM DOES NOT EXCLUDE THE POSSIBILITY OFBREAST CANCER. A CLINICALLY SUSPICIOUS PALPABLE LUMP SHOULD BE BIOPSIED. Dictated by: Jose Angel Saldana M.D. on 10/01/2023 at 16:15 Approved by: Jose Angel Saldana M.D. on 10/01/2023 at 16:19 Dictated By: Jose Angel Saldana M.D. Signed By:10/01/23 1620 DD/ 1619 TD/TT: Jockey Agent: Authorizing ProviderResult TypeResult StatusAmy Ab PACLINISYNC IMAGINGFinal Result documented in this encounter Visit Diagnoses Not on filedocumented in this encounter Care Teams Team MemberRelationshipSpecialtyStart DateEnd Date Anastacia [place] MD [address] [place] [address] PCP - GeneralFamily Medicine09/28/23documented as of this encounter
--- OUTSIDE RECORDS SUMMARY | 2024-12-14 14:26 | XMS_ITS | Encounter Summary ---
Author Organization [facility] Address [address] [place] [address] Care Team Providers Care Pattern Hanger Name Role Phone Anastacia [place] MD Primary Care Provider [phone] Encounter Details DateTypeDepartmentCare Team (Latest Contact Info)Bkovsbmabcy77/30/2025Abstract [facility] [address] [place] [phone] Anastacia [place] MD [address] [place] [address] Social History Tobacco UseTypesPacks/DayYears UsedDateSmoking Tobacco: NeverSmokeless Tobacco: NeverPHQ-2AnswerDate RecordedPatient Health Questionnaire-2 Bolri013 CommentsNoSex and Gender InformationValueDate RecordedSex Assigned at BirthNot on fileLegal AuhGujrjn12/15/2023 6:54 PM EDTGender IdentityNot on file Sexual OrientationNot on filedocumented as of this encounter Plan of Treatment Not on file documented as of this encounter Visit Diagnoses Not on filedocumented in this encounter Care Teams Team MemberRelationshipSpecialtyStart DateEnd Date Anastacia [place] MD [address] [place] [address] PCP - GeneralFamily Medicine09/28/23documented as of this encounter
--- OUTSIDE RECORDS SUMMARY | 2024-12-14 14:26 | XMS_ITS | Encounter Summary ---
Author Organization [facility] Address [address] [place] [address] Care Team Providers Care Clinical Data Research Name Role Phone Anastacia [place] MD Primary Care Provider [phone] Encounter Details DateTypeDepartmentCare Team (Latest Contact Info)Edonufxeaos13/23/2024Clinisync Result Encounter [facility] External Department Unsolicited Leah [place], KELVIN [address] [place] [address] [place] [address] Social History Tobacco UseTypesPacks/DayYears UsedDateSmoking Tobacco: NeverSmokeless Tobacco: NeverPHQ-2AnswerDate RecordedPatient Health Questionnaire-2 Dsdei970 CommentsNoSex and Gender InformationValueDate RecordedSex Assigned at BirthNot on fileLegal UkgWjwnuv94/15/2023 6:54 PM EDTGender IdentityNot on file Sexual OrientationNot on filedocumented as of this encounter Functional Status * Over the past 2 weeks, how often have you been bothered by any of the following problems?QuestionAnswerDate of AssessmentAuthorLittle interest or pleasure in doing thingsNot at all11/24/2024 2:01 PM Erika Reynolds MA Feeling down, depressed, or hopelessNot at all11/24/2024 2:01 PM Erika Reynolds, MAPatient Health Questionnaire-2 Zxstp136 2:01 PM Erika Reynolds MA documented as of this encounter Plan of Treatment Not on file documented as of this encounter Procedures Procedure NamePriorityDate/TimeAssociated DiagnosisCommentsXR DEXA AXIAL YZIHFDNW28/23/2024 6:05 AM EDT documented in this encounter Results * XR DEXA AXIAL SKELETON (10/02/2023 6:05 AM EDT)Anatomical RegionLaterality ModalityOtherSpecimen (Source)Anatomical Location / LateralityCollection Method / VolumeCollection TimeReceived Time10/02/2023 6:05 AM EDT Narrative 10/02/2023 6:[address] [facility] ?[address] ? [place] [address] ?XRay Report ? Signed ? Patient: KEILA RICHARDSON ?MR#: [id number] ?? : 1970 ?Acct:[id number] ?? Age/Sex: 53 / F ?ADM Date: 10/01/23 ?? Loc: MAMMO ? Attending Dr: Leah [place] ? Ordering Physician: Leah [place] ?? Date of Service: 10/01/23 ?? Procedure(s): XR DEXA axial skeleton ?? Accession Number(s): [id number] ? cc: Leah [place] ? [facility] ? [address] [facility] ? [place] [address] ? Patient Name: ?? KEILA ??PINNELL ? MRN: [facility]:[id number] ? date: 1970 ?Sex: F ?? Assigned Patient Location: MAMMO ?? Current Patient Location: ? Accession/Order Number: [id number] ?? Exam Date: 10/01/2023 ??14:58 ?Report Date: 10/02/2023 ??06:05 ? At the request of: ?? LEAH ??BECKY ? Procedure: ??XR DEXA axial skeleton ? EXAMINATION: XR DEXA axial skeleton ? HISTORY: Postmenopausal State Z78.0 ? COMPARISON: No relevant comparison available. ? TECHNIQUE: Dual-energy X-ray absorptiometry (DXA) was performed. ? FINDINGS: ?? SPINE ANALYSIS: ?? Average bone mineral density is 1.141 g/cm2. ?? T-score (standard deviation relative to young adult mean): -0.3 . ? FOREARM ANALYSIS: ?? Average bone mineral density is 0.754 g/cm2. ?? T-score (standard deviation relative to young adult mean): 0.6 . ? XR/XR DEXA axial skeleton ?? IMPRESSION: ? World Health Organization Classification: Normal - Low Fracture Risk ?? FRAX: Cannot calculate ? Pharmacologic treatment recommendations ?? * No uniform recommendation applies to all patients. Management plans must be ?? individualized. ?? * Consider initiating pharmacologic treatment in postmenopausal women and men ?? >= 50 years of age who have the following: Primary fracture prevention: ?? * T-score <= - 2.5 at the femoral neck, total hip, lumbar spine, 33% radius (some uncertainty with existing data) by DXA. ?? * Low bone mass (osteopenia: T-score between - 1.0 and - 2.5) at the femoral ?? neck or total hip by DXA with a 10-year hip fracture risk >= 3% or a 10-year major osteoporosis-related fracture risk >= 20% (i.e., clinical vertebral, hip, ?? forearm, or proximal humerus) based on the US-adapted FRAXregistered model. ?? Secondary fracture prevention: ?? * Fracture of the hip or vertebra regardless of BMD [4, 5]. ?? * Fracture of proximal humerus, pelvis, or distal forearm in persons with low ?? bone mass (osteopenia: T-score between - 1.0 and - 2.5). The decision to treat ? should be individualized in persons with a fracture of the proximal humerus, ?? pelvis, or distal forearm who do not have osteopenia or low BMD [12, 13]. ?? Wilbur MS, Yoni SL, Jose KL, Soniya EM, Parrish KG, AJ, Martha ?? ES. ?? The clinician's guide to prevention and treatment of osteoporosis. Osteoporos ?? Int. 2021;33(10):5231-9118. doi: 10.1007/y35234-106-53418-w. Epub 2022 Apr ? 28. Erratum in: Osteoporos Int. 2021Sep 05;: PMID: 05004444; PMCID: ?? [id number]. ? Electronically authenticated by: JOSE ANGEL ??DONNA ?? Date: 10/02/2023 ??06:05 ? Dictated By: ?Jose Angel Saldana M.D. ? Signed By: ?10/02/23 0607 ? DD/ 0605 ? TD/TT: ? Collections And Archives Director: Procedure Note Radiology, Radiologist, MD - 10/02/[address] [address] XRay Report Signed Patient: KEILA RICHARDSONMR#: [id number] : 1970Acct:[id number] Age/Sex: 53 / FADM Date: 10/01/23 Loc: MAMMO Attending Dr: Leah [place] Ordering Physician: Leah [place] Date of Service: 10/01/23 Procedure(s): XR DEXA axial skeleton Accession Number(s): [id number] cc: Leah [place] The [address] [address] Patient Name: KEILA RICHARDSON MRN: [facility]:[id number] date: 1970 Sex: F Assigned Patient Location: [facility] Current Patient Location: Accession/Order Number: [id number] Exam Date: 10/01/2023 14:58 Report Date: 10/02/2023 06:05 At the request of: LEAH PENA Procedure: XR DEXA axial skeleton EXAMINATION: XR DEXA axial skeleton HISTORY: Postmenopausal State Z78.0 COMPARISON: No relevant comparison available. TECHNIQUE: Dual-energy X-ray absorptiometry (DXA) was performed. FINDINGS: SPINE ANALYSIS: Average bone mineral density is 1.141 g/cm2. T-score (standard deviation relative to young adult mean): -0.3 . FOREARM ANALYSIS: Average bone mineral density is 0.754 g/cm2. T-score (standard deviation relative to young adult mean): 0.6 . XR/XR DEXA axial skeleton IMPRESSION: World Health Organization Classification: Normal - Low Fracture Risk FRAX: Cannot calculate Pharmacologic treatment recommendations * No uniform recommendation applies to all patients. Management plans mustbe individualized. * Consider initiating pharmacologic treatment in postmenopausal women andmen >= 50 years of age who have the following: Primary fracture prevention: * T-score <= - 2.5 at the femoral neck, total hip, lumbar spine, 33%radius (some uncertainty with existing data) by DXA. * Low bone mass (osteopenia: T-score between - 1.0 and - 2.5) at thefemoral neck or total hip by DXA with a 10-year hip fracture risk >= 3% or i47-khvk major osteoporosis-related fracture risk >= 20% (i.e., clinical vertebral, hip, forearm, or proximal humerus) based on the US-adapted FRAXregisteredmodel. Secondary fracture prevention: * Fracture of the hip or vertebra regardless of BMD [4, 5]. * Fracture of proximal humerus, pelvis, or distal forearm in persons withlow bone mass (osteopenia: T-score between - 1.0 and - 2.5). The decision totreat should be individualized in persons with a fracture of the proximalhumerus, pelvis, or distal forearm who do not have osteopenia or low BMD [12, 13]. Wilbur MS, Yoni SL, Jose KL, Soniya EM, Parrish KG, AJ,Martha ES. The clinician's guide to prevention and treatment of osteoporosis.Osteoporos Int. 2021;33(10):9386-3156. doi: 10.1007/d03465-385-96522-b. Ep. Erratum in: Osteoporos Int. 2021Sep 05;: PMID: 66527187; PMCID: [id number]. Electronically authenticated by: JOSE ANGEL SALDANA Date: 10/02/2023 06:05 Dictated By: Jose Angel Saldana M.D. Signed By:10/02/23606 DD/ 4 TD/TT: Collections And Archives Director: Authorizing ProviderResult TypeResult StatusAmy Acworth PACLMARY [facility] IMAGINGFinal Result documented in this encounter Visit Diagnoses Not on filedocumented in this encounter Care Teams Team MemberRelationshipSpecialtyStart DateEnd Date Anastacia [place] MD [address] [place] [address] PCP - GeneralFamily Medicine09/28/23documented as of this encounter
--- OUTSIDE RECORDS SUMMARY | 2024-12-14 14:26 | XMS_ITS | Clinical Summary ---
Author Organization [facility] Address [address] [place] [address] Care Team Providers Care Operator Lights Name Role Phone Anastacia Ham MD Primary Care Provider [phone] Allergies Active AllergyReactionsCriticalityNoted DateCommentsWound Dressing AdhesiveRash Low08/06/2023 Medications MedicationSigDispense QuantityRefillsLast FilledStart DateEnd DateStatus omega-3 (Fish Oil) 1000 MG capsule 1 capsule 1 (one) time each day at the same timeActive Turmeric 500 MG capsule Take by mouthActive Boswellia Teresa (BOSWELLIA PO) Take by mouthActive Milk Thistle 1000 MG capsule Take by mouthActive zinc 50 MG tablet Take by mouthActive fluticasone (Cutivate) 0.05 % cream Indications:Eczema of both handsApply topically 2 (two) times a day 15 g 307ctive Multiple Vitamin (multivitamin) capsule Take 1 capsule by mouth DailyActive ascorbic acid (Vitamin C) 500 MG tablet Take 500 mg by mouth DailyActive Cholecalciferol 50 MCG (1999 UT) chewable tablet Chew 1 tablet in the morning.Active Ferrous Sulfate (IRON PO) Take 1 tablet by mouth in the morning.Active latanoprost (Xalatan) 0.005 % ophthalmic solution Administer 1 drop into both eyes at bedtimeActive magnesium oxide 200 MG tablet Take 200 mg by mouth as needed at bedtimeActive metFORMIN XR (Glucophage-XR) 500 MG 24 hr tablet Indications:Encounter for weight loss counselingTake 1 tablet (500 mg) by mouth in the evening. Take with meals Do not crush, chew, or split. 30 tablet 1107//Discontinued(Other) phentermine (Adipex-P) 37.5 MG tablet Indications:Encounter for weight managementTake 1 tablet (37.5 mg) by mouth in the morning. Take before meals. 30 tablet Discontinued(Other) phentermine (Adipex-P) 37.5 MG tablet Indications:Encounter for weight managementTake 1 tablet (37.5 mg) by mouth in the morning. Take before meals. 90 tablet Discontinued(Other) phentermine (Adipex-P) 37.5 MG tablet Indications:Encounter for weight managementTake 1 tablet (37.5 mg) by mouth in the morning. Take before meals. 90 tablet Discontinued(Other) Active Problems ProblemNoted DateDiagnosed DateAcute pain of right /16/2025ontusion of rib on right side11/24/2024Fall from slip, trip, or ncwlgal2211/24/2024Rotator cuff tear arthropathy of right hrbroclp44/08/2025reast uqnpoo2401/10/2024Glaucoma 11/10/2023 Overview (11/24/2024): I was diagnosed with glaucoma at my eye doctor on November 11, 2023 Closed fracture of right distal femur08/11/2023Encounter for prophylactic measures, tbbeugekysh07/02/2024History of total knee ajuashnbyjss23/02/2024 Jmtyqxrqjwg05/02/5882Qfnomfrpgyom71/02/2024re-operative yvbowprzu26/02/2024 Assessment & Plan (11/24/2024 2:30 PM EDT): Patient is cleared for right shoulder surgery He has no current cardiac symptoms of chest pain This is a low cardiac procedure risk Labs were normal No NSAIDs 7-10 days prior to surgery to reduce the risk of bleeding. Nicotine fgryhxyyaw82/02/2024Morbid (severe) obesity due to excess calories 08/11/2023 Assessment & Plan (08/11/2023 10:10 AM EDT): Exercise and Diet Postoperative anemia due to acute blood loss08/11/2023ostoperative pain 08/11/2023ight leg pain08/11/2023Status post fall08/11/2023Eczema of both hands 08/11/2023 Assessment & Plan (08/11/2023 10:09 AM EDT): Cutivate added do not use on face Annual physical exam08/11/2023 Assessment & Plan (08/11/2023 10:09 AM EDT): Modest Alcohol consumption No Tobacco Seat Belt use Exercise Regularly No Text Drive Social Accountability Benign essential ydvyvtpujsbz56/02/2024 Assessment & Plan (08/11/2023 10:09 AM EDT): Our specific goals, for your hypertension, is to keep your blood pressure less than 140/90, and theimportance of weight control. We made recommendations on how to control your blood pressure, and minimize your risk of these copmplications. We also discussed your current barriers to a healthy living and importance of healthy diet and exercise. Prior to your visit today we have reviewed your chart and formed a plan to assist with providing you the best possible care. We reviewed the possible complications of hypertension including, stroke, heart failure and kidney impairment. In addition, we discussed your medications, the importance of taking them as prescribed. DASH diet handouts Body mass index [BMI] 40.0-44.9, adult (Z68.41)08/11/2023 Assessment & Plan (08/11/2023 10:19 AM EDT): Weight loss encouraged Adipex Wegovy Zepbound Screening for malignant neoplasm of colon08/11/2023 Assessment & Plan (08/11/2023 10:20 AM EDT): Cologuard Asthmatic hunlheneos75/27/2024ifficulty uscmeqh1308/06/2023Elevated erythrocyte sedimentation rate08/06/2023HLA B27 abtsheye96/27/2024Mild intermittent asthma with acute xvyiulcmaivs39/27/2024rimary localized osteoarthritis of pelvic region and thigh08/06/2023rimary osteoarthritis of left hip08/06/2023S/P total left hip /27/2024Right femoral afhgphjm04/10/2021 Encounters DateTypeDepartmentCare FpssUkixbcgijbe92/30/2025bstract [facility] [address] [place] [address] Anastacia Ham MD 12/08/2024bstract [facility] [address] [place] [address] Anastacia Ham MD 12/08/2024Telephone [facility] [address] [place] [address] Anastacia Ham MD FYI1bstract [facility] [address] [place] [address] Anastacia Ham MD 11/24/2024 2:00 PM EDTOffice Visit [facility] [address] [place] [address] Anastacia Ham MD Pre-operative clearance (Primary Dx)11/24/2024amboo flowsheet [facility] [address] [place] [address] Anastacia Ham MD 11/24/20248388Hfdoae01/15/2025Telephone [facility] [address] [place] [address] Anastacia Ham MD from Last 3 Months Family History RelationNameStatusCommentsFatherDeceasedMotherAlive Social History Tobacco UseTypesPacks/DayYears UsedDateSmoking Tobacco: NeverSmokeless Tobacco: Never Tobacco Cessation:Counseling Given: Not Answered PHQ-2AnswerDate RecordedPatient Health Questionnaire-2 Ibjfp510 CommentsNoSex and Gender InformationValueDate RecordedSex Assigned at BirthNot on fileLegal YpiJcngpo82/15/2023 6:54 PM EDTGender IdentityNot on fileSexual OrientationNot on file Last Filed Vital Signs Vital SignReadingTime TakenCommentsBlood Sfifxnzo743/8811/24/2024 2:11 PM EDT Ayyjw002511/24/2024 2:11 PM EDTTemperature--Respiratory Rate--Oxygen Xjuqcodzma09% 11/24/2024 2:11 PM EDTInhaled Oxygen Concentration--Jttgns181 kg (277 lb) 11/24/2024 2:11 PM QYMIgjenj734.8 cm (5' 10 )11/24/2024 2:11 PM EDTBody Mass Index39.7511/24/2024 2:11 PM EDT Plan of Treatment Health MaintenanceDue DateLast DoneCommentsCT Csceioyscypl51/15/1972Colonoscopy 1971FIT1971FOBT05/25/19710580Jgfswicexclic22/15/1972Pneumococcal Vaccine: Pediatrics (0 to 5 Years) and At-Risk Patients (6 to 64 Years) (1 of 2 - PCV)05/24/1990COVID-19 Vaccine (3 - 2024- season)5006/06/2020, 05/16/2020Influenza Vaccine (#1)5Colorectal Cancer Ojtwrauwu33/24/2027 FIT-DNA7010/03/20232806VgjfxxdhtFnfsfeodvivi22/27/2025, 03/11/2024, 11/04/2023, Additional history exists Procedures Procedure NamePriorityDate/TimeAssociated DiagnosisCommentsBI MAMMOGRAM DIAGNOSTIC RIGHT11/04/2023 11:50 AM EDT LAB COLOGUARD?? COLON CANCER SGIXWDEqibfbb22/24/2024 9:00 AM EDT Screening for malignant neoplasm of colon from Last 3 Months or Most Recently Relevant to Health Maintenance Results * Cologuard?? colon cancer screening (10/03/2023 9:00 AM EDT)ComponentValueRef RangeTest MethodAnalysis TimePerformed AtPathologist SignatureNONINV COLON CA DNA+OCC BLD SCRN STL-JRWUemeffhmQrllbdpo16/29/2024 8:00 PM SeatID (CLIA #:[id number])Comment: NEGATIVE TEST RESULT. A negative Cologuard result indicates a low likelihood that a colorectal cancer (CRC) or advanced adenoma (adenomatous polyps with more advanced pre-malignant features) ??is present. The chance that a person with a negative Cologuard test has a colorectal cancer is less than 1in 1500 (negative predictive value >99.9%) or has an advanced adenoma is less than 5.3% (negative predictive value 94.7%). These data are based on a prospective cross-sectional study of 10,000individuals at average risk for colorectal cancer who were screened with both Cologuard and colonoscopy. (Otilia Morin al, N Engl J Med 2014;370(14):5237-6579) The normal value (reference range) for this assay is negative. COLOGUARD RE-SCREENING RECOMMENDATION: Periodic colorectal cancer screening is an important part ofpreventive healthcare for asymptomatic individuals at average risk for colorectal cancer. ??Following a negative Cologuard result, the [place] [employer] and U.S. Multi-Society Task Force screening guidelines recommend a Cologuard re-screening interval of 3 years. References: [place] [employer] Guideline for Colorectal Cancer Screening: https://www.cancer.or g/cancer/nevvp-pmcurg-hohbug/drdwcxsjx-icnufkefc-dlnemxc/acs-recommendations.htm brenton; Kwaku CHAPA, Krishna MCMULLEN, Tho GustafsonK, Colorectal Cancer Screening: Recommendations for Physicians and Patients from the U.S. Multi-Society Task Force on Colorectal Cancer Screening , Am J Gastroenterology 2017; 112:5432-3995. TEST DESCRIPTION: Composite algorithmic analysis of stool DNA-biomarkers with hemoglobin immunoassay. ?? Quantitative values of individual biomarkers are not reportable and are not associated with individual biomarker result reference ranges. Cologuard is intended for colorectal cancer screening ofadults of either sex, 45 years or older, who are at average-risk for colorectal cancer (CRC). Cologuard has been approved for use by the U.S. FDA. The performance of Cologuard was established in a cross sectional study of average-risk adults aged 50-84. Cologuard performance in patients ages 45 to 49 years was estimated by sub-group analysis of near-age groups. Colonoscopies performed for a positive result may find as the most clinically significant lesion: colorectal cancer [4.0%], advanced adenoma (including sessile serrated polyps greater than or equal to 1cm diameter) [20%] or non- advanced adenoma [31%]; or no colorectal neoplasia [45%]. These estimates are derived from a prospective cross-sectional screening study of 10,000 individuals at average risk for colorectal cancer who were screened with both Cologuard and colonoscopy. (Otilia Hendrix et al, N Engl J Med 2014;370(14):9667-4558.) Cologuard may produce a false negative or false positive result (no colorectal cancer or precancerous polyp present at colonoscopy follow up). A negative Cologuard test result does not guarantee the absence of CRC or advanced adenoma (pre-cancer). The current Cologuard screening interval is every 3 years. ([place] [employer] and U.S. Multi-Society Task Force). Cologuard performance data in a 10,000 patient pivotal study using colonoscopy as the reference method can be accessed at the following location: www.IPLocks.com/results. Additional description of the Cologuard test process, warnings and precautions can be found at www.[employer] Diagnosticsrd.com. Specimen (Source)Anatomical Location / LateralityCollection Method / Volume Collection TimeReceived TimeStool specimen (specimen)10/03/2023 9:00 AM EDT 10/05/2023 11:01 AM EDT Narrative Authorizing ProviderResult TypeResult StatusAnastacia Ham MDLAB MOLECULAR DIAGNOSTICS ORDERABLESFinal ResultPerforming OrganizationAddressCity/State/ZIP CodePhone Number .[employer] (CLIA #:[id number]) [address] [address], [employer] (CLIA #:[id number]) [address] [phone] from Last 3 Months or Most Recently Relevant to Health Maintenance Insurance Care Teams Team MemberRelationshipSpecialtyStart DateEnd Date Anastacia Ham MD [address] [facility] [address] [place] [address] PCP - GeneralFamily Medicine09/28/23
--- OUTSIDE RECORDS SUMMARY | 2024-12-14 14:26 | XMS_ITS | Encounter Summary ---
Author Organization [facility] Address [address] [place] [address] Care Team Providers Care Wood Grinder Operator Name Role Phone Anastacia Ham MD Primary Care Provider [phone] Encounter Details DateTypeDepartmentCare Team (Latest Contact Info)Fodxwcgpoyu44/03/2025Travel Social History Tobacco UseTypesPacks/DayYears UsedDateSmoking Tobacco: FormerCigarettesQuit: mokeless Tobacco: NeverAlcohol UseStandard Drinks/WeekCommentsYes0 (1 standard drink = 0.6 oz pure alcohol)BEER EVERY COUPLE WEEKSPHQ-2AnswerDate RecordedPatient Health Questionnaire-2 Jbbwg105UT Safety & Environment AnswerDate RecordedFear of Current or Ex-PartnerNot on file04/02/2023Emotionally AbusedNot on file04/02/2023hysically AbusedNot on file04/02/2023Sexually Abused Not on file04/02/2023hysically or Sexually AbusedNot on file04/02/2023 CommentsNoSex and Gender InformationValueDate RecordedSex Assigned at Fnpabq2711/11/2024 11:30 AM EDTLegal QcvGvplpq10/29/2022 10:52 PM EDTGender SikerrlrZvccjo37/08/2025 8:23 AM EDTSexual OrientationHeterosexual or Straight 11/16/2024 8:23 AM EDTdocumented as of this encounter Functional Status * QuestionAnswerDate of FegjtmgwjnHduxptWZ841/6712/12/2024 2:55 PM Jenniffer Garrido RNPulse9712/12/2024 2:55 PM Jenniffer Garrido RNHeart Rate Source Rmrmgev1612/12/2024 1:25 PM Francesco Carranza RNPatient YcjauqtaGjibj51/03/2025 1:09 PM Jenniffer Garrido, RN * Obed ScaleQuestionAnswerDate of AssessmentAuthorBraden No Risk Interventions Continue to assess patient according to level of care12/12/2024 10:11 AM Dorothy Gil, RNSensory Mhboaazokvn603/03/2025 10:11 AM Dorothy Montalvo, PYHufasjnl013/03/2025 10:11 AM Dorothy Allison, RN Gtxovkgp189/03/2025 10:11 AM Dorothy Allison, UVNjzhswcj626/03/2025 10:11 AM Dorothy Allison, XKMwllcphvm574/03/2025 10:11 AM Dorothy Montalvo, RNFriction and Luxnz42102/12/2024 10:11 AM Dorothy Allison RNBraden Scale Ftvkn0821/03/2025 10:11 AM Dorothy Allison, RN * Pain Assessment TimerQuestionAnswerDate of AssessmentAuthorRestart Pain Assessment RedtdAxl94/03/2025 2:55 PM Jenniffer Garrido, RN * Sepsis Model ScoresQuestionAnswerDate of AssessmentAuthorEarly Detection of Sepsis Score1. 3:15 PM ESTChronicles, Batchq * Pain AssessmentQuestionAnswerDate of AssessmentAuthorPain LocationShoulder 12/12/2024 1:55 PM ESTTalatrbrehan, Francesco, RNPain DbcxtnpbacwXoybd49/03/2025 1:55 PM ESTTalatrbrehan Francesco, RNPain InterventionsMedication (See MAR)12/12/2024 1:55 PM ESTTalatrbrehan Francesco, RNPain XhsxpphdfhlEnessn77/03/2025 1:55 PM ESTTalatrbrehan, Francesco, RNPain FrequencyConstant/akkxyaevmw39/03/2025 1:55 PM ESTFrancesco Moreno RNPatient's Stated Pain Hbpk01802/12/2024 2:55 PM Jenniffer Garrido RNRamsarehan Scale (RS): Jowbg86202/12/2024 10:11 AM Dorothy Allison RNPain TypeSurgical pain12/12/2024 1:55 PM Francesco Carranza RNPain Ygdxe957 1:55 PM Francesco Carranza RNPain AssessmentNo/denies pain12/12/2024 2:55 PM Jenniffer Garrido RN * Head, Ears, Eyes, Nose, and Throat (HEENT)QuestionAnswerDate of Assessment AuthorHead, Ears, Eyes, Nose, and Throat (WDL)WDL102/12/2024 2:55 PM Jenniffer Santillan RN * QuestionAnswerDate of AssessmentAuthorSlingRemains in place12/12/2024 1:55 PM Francesco Carranza RNMiscellaneous DevicesABductor pillow;Sling12/12/2024 2:55 PM Jenniffer Garrido RN * Vital SignsQuestionAnswerDate of UlwfaonnaeYdhvqeNS624/6712/12/2024 2:55 PM Jenniffer Garrido, SYKgoi79. 1:09 PM Jenniffer Garrido RNTemp ajxKtpkvtrk57/03/2025 1:09 PM Jenniffer Garrido, CKAmfur6608/03/2025 2:55 PM Jenniffer Garrido VHPcne1580/03/2025 2:55 PM Jenniffer Garrido, OVYxW594 12/12/2024 2:55 PM Jenniffer Garrido RNHeart Rate ThptnsZmfxfxt70/03/2025 1:25 PM Francesco Carranza RNBP LocationLeft arm12/12/2024 1:09 PM Jenniffer Santillan RNBP RevdfpJbyfptvgg96/03/2025 1:09 PM Jenniffer Garrido RNMAP (mmHg)7812/12/2024 2:55 PM Jenniffer Garrido RNPulse rate from Plethysmogram (bpm)9112/12/2024 2:55 PM Jenniffer Garrido, RNPatient TjwrtqozBqpnj07/03/2025 1:09 PM Jenniffer Garrido RN * QuestionAnswerDate of AssessmentAuthorLevel of ConsciousnessResponds to voice 12/12/2024 1:40 PM Francesco Carranza RN * QuestionAnswerDate of AssessmentAuthorCardiac SzjmqqZIZ22/03/2025 1:40 PM Francesco Sauceda RNCardiac CnjdxmiufaCaltyav34/03/2025 1:40 PM Francesco Carranza RNHeart SoundsS1, S212/12/2024 1:40 PM Francesco Carranza RN * GastrointestinalQuestionAnswerDate of AssessmentAuthorGastrointestinal (WDL) WDL102/12/2024 2:55 PM Jenniffer Garrido, RNAbdomen Inspection Soft;Rrrchrymhvlx40/03/2025 1:40 PM Frnacesco Carranza RNGastrointestinal MugcvmrbIhts87/03/2025 1:55 PM Francesco Carranza RN * Peripheral VascularQuestionAnswerDate of AssessmentAuthorPeripheral Vascular (WDL)WDL102/12/2024 2:55 PM Jenniffer Garrido RN * MusculoskeletalQuestionAnswerDate of AssessmentAuthorRUELimited movement 12/12/2024 2:55 PM Jenniffer Garrido RNRLEFull qodwqpwy34/03/2025 2:55 PM Jenniffer Garrido RNLUEFull svmasvdm88/03/2025 2:55 PM Jenniffer Garrido RNLLEFull /03/2025 2:55 PM Jenniffer Garrido RNMusculoskeletal (WDL)X102/12/2024 2:55 PM Jenniffer Garrido RN * PsychosocialQuestionAnswerDate of AssessmentAuthorPsychosocial (WDL)WDL 12/12/2024 10:11 AM Dorothy Allison RN * Obed ScaleQuestionAnswerDate of AssessmentAuthorBraden No Risk Interventions Continue to assess patient according to level of care12/12/2024 10:11 AM Dorothy Gil, RNSensory Wljnpsgnduh781/03/2025 10:11 AM Dorothy Montalvo, LYEgprqawm565/03/2025 10:11 AM Dorothy Allison, RN Yzbgbgdx614/03/2025 10:11 AM Dorothy Allison, ZLApubhfov817/03/2025 10:11 AM Dorothy Allison, RJPjebwgozm022/03/2025 10:11 AM Dorothy Montalvo, RNFriction and Hzpxn43302/12/2024 10:11 AM Dorothy Allison RNBraden Scale Plaha6269/03/2025 10:11 AM Dorothy Allison, RN * RespiratoryQuestionAnswerDate of AssessmentAuthorBilateral Breath Sounds Anterior;Clear12/12/2024 1:40 PM Francesco Carranza RNRespiratory Pattern Dotwck2112/12/2024 1:40 PM Francesco Carranza RNChest AssessmentSymmetrical 12/12/2024 1:40 PM Francesco Carranza RNRespiratory (WDL)WDL102/12/2024 2:55 PM Jenniffer Garrido RNRespiratory OardyhEigawjkuq85/03/2025 1:09 PM Francesco Carranza RNRespiratory Depth/LkdpcjCfjqurh45/03/2025 1:09 PM Francesco Carranza RNBreath SoundsBilateral breath gpnprc1612/12/2024 1:09 PM Francesco Carranza RN * GenitourinaryQuestionAnswerDate of AssessmentAuthorGenitourinary (WDL)WDL 12/12/2024 2:55 PM Jenniffer Garrido RN * NeurologicalQuestionAnswerDate of AssessmentAuthorNeuro (WDL)WDL102/12/2024 10:11 AM Dorothy Allison, RN * QuestionAnswerDate of TisykuzoccYdvzxrLIAU1337/03/2025 1:03 PM ESTInterface, Device In * Pain AssessmentQuestionAnswerDate of AssessmentAuthorPain LocationShoulder 12/12/2024 1:55 PM Francesco Carranza RNPain WcccujdkudkEhhkg81/03/2025 1:55 PM Francesco Carranza RNPain InterventionsMedication (See MAR)12/12/2024 1:55 PM Francesco Carranza RNPain LzihwrbvrwiOljfvu13/03/2025 1:55 PM Farncesco Carranza RNPain FrequencyConstant/cqfhvaryjm14/03/2025 1:55 PM Francesco Carranza RNPatient's Stated Pain Khse69102/12/2024 2:55 PM Jenniffer Garrido RNRamsarehan Scale (RS): Siuoy98502/12/2024 10:11 AM Dorothy Allison RNPain TypeSurgical pain12/12/2024 1:55 PM Francesco Carranza RNPain Ysasg09602/12/2024 1:55 PM Francesco Carranza RNPain AssessmentNo/denies pain12/12/2024 2:55 PM Jenniffer Garrido RN * [place] Suicide Severity Rating ScaleQuestionAnswerDate of AssessmentAuthor1. Have [...] Jenniffer Santillan RN * Modified AldreteQuestionAnswerDate of HyjrswdtqhZpttfxKvintvft813/03/2025 2:55 PM Jenniffer Garrido RNRespiration 2:55 PM Jenniffer Garrido, FJNkpalbeukbw371/03/2025 2:55 PM Jenniffer Garrido, RNConsciousness2 12/12/2024 2:55 PM Jenniffer Garrido, JOSE DE JESUSOxygen Fxjsdjatzi902/03/2025 2:55 PM Jenniffer Garrido RN * Modified Phong ScoreAnswerDate of TbgqnoisxoZtlodx2672/03/2025 2:55 PM Jenniffer Santillan RN documented as of this encounter Mental Status * Modified AldreteQuestionAnswerEntry MffrKorqvpCpgwvewi021/03/2025 2:55 PM Jenniffer Santillan DIGbelxyzztxr714/03/2025 2:55 PM Jenniffer Garrido, RN Dwmjzdripsl723/03/2025 2:55 PM Jenniffer Garrido, IXWbkxmylogomwt516/03/2025 2:55 PM Jenniffer Garrido, RNOxygen Jtfjinojnf464/03/2025 2:55 PM Jenniffer Santillan RN * Modified Phong ScoreAnswerEntry XgghRanfrl9586/03/2025 2:55 PM Jenniffer Garrido RN documented in this encounter Plan of Treatment DateTypeDepartmentCare Team (Latest Contact Info)Wepsffwmdhv82/19/2025 1:30 PM ESTOffice Visit [facility] [address] [place] [address] [place] [address] Campbell Ortega MD [address] [place] [address] [place] [address] documented as of this encounter Visit Diagnoses Not on filedocumented in this encounter Care Teams Team MemberRelationshipSpecialtyStart DateEnd Date Anastacia Ham MD [address] [facility] PCP - General09/27/21documented as of this encounter
--- OUTSIDE RECORDS SUMMARY | 2024-12-14 14:26 | XMS_ITS | Clinical Summary ---
Author Organization [facility] Address [address] [place] [address] Care Team Providers Care Manager Web Application Name Role Phone Anastacia Ham MD Primary Care Provider [phone] Allergies Active AllergyReactionsCriticalityNoted DateCommentsAdhesive Tape-SiliconesHives ,HssrMauorc14/03/2022 Medications MedicationSigDispense QuantityRefillsLast FilledStart DateEnd DateStatus baclofen (Lioresal) 10 mg tablet Take 1 tablet by mouth if needed at bedtime.Active calcium citrate (Calcitrate) 200 mg (950 mg) tablet Take 2 tablets by mouth every other day.Active cholecalciferol, vitamin D3, 50 mcg (2,000 unit) capsule Take 1 tablet by mouth in the morning.Active multivitamin tablet Take 1 tablet by mouth in the morning.Active fish oil/borage/flax/om3,6,9 1 (OMEGA 3-6-9 ORAL) Take by mouth.Active ascorbic acid (Vitamin C) 1,000 mg tablet Take 1,000 mg by mouth in the morning.Active biotin 10,000 mcg capsule Take by mouth.Active BOSWELLIA JORDIN EXTRACT ORAL Take 600 mg by mouth.Active QUERCETIN ORAL Take by mouth once daily as directed. BROMELAINActive TURMERIC ORAL Take by mouth. WITH GINGERActive latanoprost (Xalatan) 0.005 % ophthalmic solution Administer 1 drop into both eyes at bedtime.Active sulfamethoxazole-trimethoprim (Bactrim) 200-40 mg/5 mL suspension Take by mouth two times daily.Active sulfamethoxazole-trimethoprim (Bactrim) 400-80 mg tablet Take 1 tablet by mouth two times daily.Active HYDROcodone-acetaminophen (Sycamore) 5-325 mg tablet Indications:Status post reverse arthroplasty of shoulder, rightTake 1 tablet by mouth every 4 (four) hours if needed for severe pain (8-10 pain score) for up to 7days. 42 tablet 5Active sennosides-docusate sodium (Guadalupe-Colace) 8.6-50 mg tablet Indications:Status post reverse arthroplasty of shoulder, rightTake 1 tablet by mouth in the morning for 7 days. Take while taking narcotic pain medications 7 tablet 5Active cephalexin (Keflex) 500 mg capsule Indications:surgical site prophylaxisTake 1 capsule (500 mg) by mouth four times daily for 3 days. 12 capsule 5Active aspirin 81 mg EC tablet Indications:Status post reverse arthroplasty of shoulder, rightTake 1 tablet (81 mg) by mouth in the morning for 28 days. This medication is for prevention of blood clots, not for pain relief. Do not stop taking until prescription runs out. 28 tablet 5Active HYDROcodone-acetaminophen (Sycamore) 5-325 mg tablet Take 2 tablets by mouth in the morning and at bedtime.12/12/2024Discontinued (Stop Taking at Discharge) Senna-S 8.6-50 mg tablet Take 1 tablet by mouth if needed in the morning and at bedtime.04/16/2021 12/12/2024Discontinued(Stop Taking at Discharge) phytonadione, vit K1, (MEPHYTON ORAL) vitamin K102/12/2024Discontinued(Stop Taking at Discharge) Active Problems ProblemNoted DateDiagnosed DateRotator cuff tear arthropathy of right shoulder 11/16/2024Osteoarthritis of left hip, unspecified osteoarthritis type11/27/2021 Primary osteoarthritis of left hip10/24/2021 Overview (10/24/2021): Added automatically from request for surgery [id number] Encounters DateTypeDepartmentCare TutlIriaejrhecw03/04/2025Orders Only [facility] [address] [place] [address] [place] [address] Calin Lechuga MA Status post reverse total replacement of right shoulder (Primary Dx)12/12/2024 11:00 AM EST - 12/12/2024 2:30 PM ESTSurgery [facility] [address] [place] [address] Campbell Ortega MD REVERSE TOTAL SHOULDER ARTHROPLASTY [32704 (CPT??)]12/12/2024 10:37 AM EST Anesthesia Event [facility] [address] [place] [address] Lissette Garcia MD Eisenman-Patel, Taylor, MD 12/12/2024 9:29 AM EST - 12/12/2024 2:20 PM ESTHospital Encounter [facility] [address] [place] [address] Campbell Ortega MD Status post reverse arthroplasty of shoulder, right (Primary Dx) Discharge Disposition: Home or Self Care ()12/12/20244277Bqikyj38/29/2025 3:10 PM EDTLab [facility] [address] [place] [address] [place] [address] Pre-op testing; Clotting fpmqkmyb41/29/2025 2:45 PM EDTConsult [facility] [address] [place] [address] [place] [address] Campbell Ortega MD Rotator cuff tear arthropathy of right shoulder (Primary Dx); Primary osteoarthritis of left shoulder; Pre-op gfeowit7112/07/2024 2:32 PM EDT - 12/07/2024 11:59 PM EDTHospital Encounter [facility] [address] [place] [address] [place] [address] Primary osteoarthritis of left shoulder Discharge Disposition: Home or Self Care ()12/07/2024 2:15 PM EDT - 12/07/2024 2:31 PM EDTHospital Encounter [facility] [address] [place] [address] [place] [address] Rotator cuff tear arthropathy of right shoulder Discharge Disposition: Home or Self Care ()11/29/20248443Gyidse79/17/2025Telephone [facility] [address] [place] [address] [place] [address] Michelle Nielsen MA 11/16/2024 8:45 AM EDTFollow-Up [address] [place] [address] Campbell Ortega MD Rotator cuff tear arthropathy of right shoulder (Primary Dx); History of total hip arthroplasty, left; Primary osteoarthritis of left shoulder; Lumbosacral radiculopathy; Osteoarthritis of right hip, unspecified osteoarthritis type; Clotting disorder; Pre-op follfci1411/16/2024 8:25 AM EDT - 11/16/2024 11:59 PM EDTHospital Encounter [facility] [address] [place] [address] [place] [address] Primary osteoarthritis of left hip Discharge Disposition: Home or Self Care ()11/15/2024Telephone [address] [place] [address] Alejandro Sanders MA from Last 3 Months Social History Tobacco UseTypesPacks/DayYears UsedDateSmoking Tobacco: FormerCigarettesQuit: mokeless Tobacco: Never Tobacco Cessation:Counseling Given: Not Answered Alcohol UseStandard Drinks/WeekCommentsYes0 (1 standard drink = 0.6 oz pure alcohol)BEER EVERY COUPLE WEEKSPHQ-2AnswerDate RecordedPatient Health Questionnaire-2 Xoswg827UT Safety & EnvironmentAnswerDate RecordedFear of Current or Ex-PartnerNot on file04/02/2023Emotionally AbusedNot on file 04/02/2023hysically AbusedNot on file04/02/2023Sexually AbusedNot on file 04/02/2023hysically or Sexually AbusedNot on file04/02/2023CommentsNo Sex and Gender InformationValueDate RecordedSex Assigned at BirthFemale 11/11/2024 11:30 AM EDTLegal GjlXibuyp27/29/2022 10:52 PM EDTGender Identity Yzctpo0711/16/2024 8:23 AM EDTSexual OrientationHeterosexual or Ylsoqhci64/08/2025 8:23 AM EDT Last Filed Vital Signs Vital SignReadingTime TakenCommentsBlood Rvvzgwpq206/6712/12/2024 2:55 PM EST Offsq651612/12/2024 2:55 PM XMYDhgftvpumkq14.4 ??C (97.5 ??F)12/12/2024 1:09 PM ESTRespiratory Pmug267612/12/2024 2:55 PM ESTOxygen Tvhsbprtbv74%12/12/2024 2:55 PM ESTInhaled Oxygen Concentration--Scmyps204 kg (287 lb 4.2 oz)12/12/2024 10:10 AM XNRMtlitb885.3 cm (5' 11 )12/12/2024 10:10 AM ESTBody Mass Index40.06 12/12/2024 10:10 AM EST Plan of Treatment DateTypeDepartmentCare Team (Latest Contact Info)Kqkzdqcbboz81/19/2025 1:30 PM ESTOffice Visit [facility] [address] [place] [address] [place] [address] Campbell Ortega MD [address] [place] [address] [place] [address] Health MaintenanceDue DateLast DoneCommentsCT Hehgkyjlwszi91/15/1972Colonoscopy 1971FOBT05/25/19715253Tqrxarugfnils82/15/1972Depression Kumnjnqcg80/15/1984 Hepatitis B Vaccines (1 of 3 - 19+ 3-dose series)05/24/1990Pneumococcal Vaccine: Pediatrics (0 to 5 Years) and At-Risk Patients (6 to 64 Years) (1 of 2 - PCV) 05/24/1990Pap Smear05/24/1992Adult Nfyjnnl5705/24/1993Cervical Cancer Screening 05/24/2001HPV/Vacchg3305/24/2001Zoster Vaccines (1 of 2)05/24/2021FIT10/02/2024 4COVID-19 Vaccine (3 - 2024- season)5006/06/2020, 05/16/2020 Influenza Vaccine (#1)2024olorectal Cancer Djazawprl84/24/2027FIT-DNA Mammogram, 03/11/2024, 11/04/2023HIB VaccinesAged OutNo longer eligible based on patient's age to complete this topic HPV VaccinesAged OutNo longer eligible based on patient's age to complete this topicIPV VaccinesAged OutNo longer eligible based on patient's age to complete this topicMeningococcal B VaccineAged OutNo longer eligible based on patient's age to complete this topicMeningococcal VaccineAged OutNo longer eligible based on patient's age to complete this topicRotavirus VaccinesAged OutNo longer eligible based on patient's age to complete this topic Medical Devices ImplantedTypeAreaManufacturerDevice IdentifierShelf Expiration DateModel / Serial / LotTray,Humeral,40x+3mm - [id number] Implanted:Qty: 1 on 12/12/2024 [facility] [id number] / / [id number],6.5m,Comp,Cntrl,St/Rst,3 - [id number] Implanted:Qty: 1 on 12/12/2024 by [facility]: [id number] / / [id number],3.5m, Non Lck,Hex4.75x35 - [id number] Implanted:Qty: 1 on 12/12/2024 by [facility]: [id number] / / [id number],3.5m,Lck,Hex4.75x20,St - [id number] Implanted:Qty: 1 on 12/12/2024 by [facility]: [id number] / / [id number],3.5m,Lck,Hex4.75x20,St - [id number] Implanted:Qty: 1 on 12/12/2024 by [facility]: [id number] / / [id number],3.5m, Non Lck,Hex4.75x35 - [id number] Implanted:Qty: 1 on 12/12/2024 by [facility]: [id number] / / [id number],Humeral,36m - [id number] Implanted:Qty: 1 on 12/12/2024 by [facility]: [id number] / / [id number],Comp Rvs,25mm - [id number] Implanted:Qty: 1 on 12/12/2024 by [facility]: [id number] / / [id number],36m,Comp,Shldr,Std - [id number] Implanted:Qty: 1 on 12/12/2024 by [facility]: [id number] / / [id number] Humeral Stem Implanted:Qty: 1 on 12/12/2024 by [facility] JointRight: ShoulderBIOMET [id number] / / [id number] Mm Low Profile Hex Screw Implanted:Qty: 1 on 11/27/2021 by Campbell [facility]: [facility]01//[id number] / / [id number] Cementless Liner Implanted:Qty: 1 on 11/27/2021 by [id number] / / [id number] Tritanium Clusterhole Acetabular Shell Implanted:Qty: 1 on 11/27/2021 by [id number] / / [id number] Hip Stem - High Offset Implanted:Qty: 1 on 11/27/2021 by [facility]06/[id number] / / [id number] Delta Ceramic Femoral Head Implanted:Qty: 1 on 11/27/2021 by [id number] / / [id number] Adm/Mdm X 3 Insert Implanted:Qty: 1 on 11/27/2021 by [id number] / / [id number] Procedures Procedure NamePriorityDate/TimeAssociated DiagnosisCommentsPR AN ELECTIVE ENDOTRACHEAL GBFRMJNuhvpaq48/03/2025 10:49 AM EST GA ARTHROPLASTY GLENOHUMERAL JOINT TOTAL UGUMSDHP20/03/2025 10:41 AM EST Rotator cuff tear arthropathy of right shoulder Glenohumeral arthritis, right Osteoporosis without pathological fracture Class 3 obesity (CMS/HCC) HC INJ,ANES AGENT,BRACHIAL PLEXUS,LDGQFYRgpbefi24/03/2025 10:12 AM EST CHG US GUIDANCE NEEDLE PLACEMENT IMG S&DXslrimw92/03/2025 10:12 AM EST GA INJECTION AA&/STRD BRACHIAL PLEXUS W/IMG OGSLnprmrd76/03/2025 10:12 AM EST POCT GLUCOSE METER UNSOLICITED GIOMVCDKpjkpwv13/03/2025 10:04 AM EST URINALYSIS MICROSCOPIC WITH REFLEX GHOYMLFDecfawh57/29/2025 3:09 PM EDT Pre-op testing CBC WITH AUTO OOUTLZPTEWPJMwethoi29/29/2025 3:09 PM EDT Pre-op testing URINALYSIS WITH REFLEX TPXHNYYZdvxnhf84/29/2025 3:09 PM EDT Pre-op testing TYPE AND JKAFZRXvfnmfq69/29/2025 3:09 PM EDT Pre-op testing PROTIME-UCNWnpjsif81/29/2025 3:09 PM EDT Clotting disorder BGIJDmbxffy29/29/2025 3:09 PM EDT Clotting disorder COMPREHENSIVE METABOLIC ARFCPFxqmytx04/29/2025 3:09 PM EDT Pre-op testing CBC AND XAHODMZGYJABXczlwfi35/29/2025 3:09 PM EDT Pre-op testing URINE CJBYDNKWpapmoo62/29/2025 3:09 PM EDT Pre-op testing MRSA/MSSA DNA NOUPQRafmlfz94/29/2025 3:09 PM EDT Pre-op testing XR SHOULDER 2+ VIEWS KHYNBzchaqp35/29/2025 2:33 PM EDT Primary osteoarthritis of left shoulder XR SHOULDER 2+ VIEWS FQPDCGgrsban29/29/2025 2:30 PM EDT Rotator cuff tear arthropathy of right shoulder XR HIP 2 OR 3 VW SIWLVkdbcty59/08/2025 8:44 AM EDT Primary osteoarthritis of left hip from Last 3 Months Results * GA AN ELECTIVE ENDOTRACHEAL AIRWAY (12/12/2024 10:49 AM EST) Mariangel Zhao CAA - 12/12/2024 10:49 AM EST WOODY Winter 12/12/2024 11:09 AM Airway Date/Time: 12/12/2024 10:49 AM Reason: elective General Information and Staff Patient location during procedure: OR Anesthesiologist: Lissette Garcia MD Resident/SECONDARY SCHOOL TEACHER/CAA: WODOY Winter Performed: resident/SECONDARY SCHOOL TEACHER/WOODY Patient Condition Indications for airway management: anesthesia [...] other approaches attempted: 0 Authorizing ProviderResult TypeResult StatusSathais Garcia MDANESTHESIA ORDERABLES Final Result * GA INJECTION AA&/STRD BRACHIAL PLEXUS W/IMG GDN, CHG [...] Staffing Performed: anesthesiologist Anesthesiologist: Lissette Garcia MD Resident/SECONDARY SCHOOL TEACHER: WOODY Winter Preanesthetic Checklist Completed: patient identified, [...] Heart rate change: no Authorizing ProviderResult TypeResult StatusLissette Garcia MDANESTHESIA ORDERABLES Edited Result - Final * POCT glucose meter (12/12/2024 10:04 AM EST)ComponentValueRef RangeTest Method Analysis TimePerformed AtPathologist SignatureGlucose HTM3924 - 105 mg/dL 12/12/2024 10:29 AM [facility] ([facility])Comment:miwardSpecimen (Source)Anatomical Location / LateralityCollection Method / VolumeCollection TimeReceived TimeBloodCapillary blood specimen / Gbxtdnt1512/12/2024 10:04 AM EST12/12/2024 10:29 AM EST Narrative [facility] ([facility]) - 12/12/2024 10:29 AM EST Waived Testing in the ED is performed under the ED CLIA certificate #[id number]. Authorizing ProviderResult TypeResult Karo Ortega MDLAB BLOOD ORDERABLESFinal ResultPerforming OrganizationAddressCity/State/ZIP CodePhone Number [facility] ([facility]) [address] [place] [address] * (ABNORMAL) Urinalysis microscopic with reflex culture (12/07/2024 3:09 PM EDT) ComponentValueRef RangeTest MethodAnalysis TimePerformed AtPathologist SignatureRBC, Urine0-2None Seen, 0-2 /HPF12/07/2024 4:11 PM [facility] ([facility])WBC, Urine>50(A)None Seen, 0-2 /HPF12/07/2024 4:11 PM [facility] ([facility])Squamous Epithelial, UrineMany(A)None Seen, Occasional, Few /LP12/07/2024 4:11 PM [facility] ([facility])Mucus, UrineFewNone Seen, Occasional, Few /LP12/07/2024 4:11 PM [facility] ([facility]) Specimen (Source)Anatomical Location / LateralityCollection Method / Volume Collection TimeReceived TimeUrineUrine specimen obtained by clean catch procedure / UnknownNon-blood Collection / Bybhrip5712/07/2024 3:09 PM EDT 12/07/2024 3:43 PM EDT Narrative Authorizing ProviderResult TypeResult StatusCampbell ARGUETA URINE ORDERABLESFinal ResultPerforming OrganizationAddressCity/State/ZIP CodePhone Number [facility] ([facility]) [address] [place] [address] * (ABNORMAL) Urinalysis with reflex culture (12/07/2024 3:09 PM EDT)Component ValueRef RangeTest MethodAnalysis TimePerformed AtPathologist SignatureColor, UrineLight-YellowColorless, Yellow, Light-Tezake3912/07/2024 4:11 PM [facility] ([facility])Clarity, UrineCloudy(A)Clear12/07/2024 4:11 PM [facility] ([facility])pH, Urine5.55.0 - 8.0 pH12/07/2024 4:11 PM [facility] ([facility])Leukocytes, UrineLarge(A)Fcrmzhqe59/29/2025 4:11 PM EDT [facility] ([facility])Nitrite, UrinePositive(A)Xbksalgy41/29/2025 4:11 PM [facility] ([facility])Protein, UrineNegativeNegative mg/dL12/07/2024 4:11 PM [facility] ([facility])Glucose, UrineNormalNormal mg/dL 12/07/2024 4:11 PM [facility] ([facility])Bilirubin, UrineNegative Lzqbsiyw80/29/2025 4:11 PM [facility] ([facility])Specific [place], Urine1.0131.010 - 1.2794912/07/2024 4:11 PM [facility] ([facility]) Ketones, UrineNegativeNegative mg/dL12/07/2024 4:11 PM [facility] ([facility])Blood, FuwpqHysoknzdRykwfsax20/29/2025 4:11 PM [facility] ([facility])Urobilinogen, UrineNormalNormal mg/dL12/07/2024 4:11 PM [facility] ([facility])Specimen (Source)Anatomical Location / Laterality Collection Method / VolumeCollection TimeReceived TimeUrineUrine specimen obtained by clean catch procedure / UnknownNon-blood Collection / Unknown 12/07/2024 3:09 PM EDT1 3:43 PM EDT Narrative Authorizing ProviderResult TypeResult StatusVibibiana ARGUETA URINE ORDERABLESFinal ResultPerforming OrganizationAddressCity/State/ZIP CodePhone Number [facility] ([facility]) [address] [place] [address] * (ABNORMAL) CBC auto differential (12/07/2024 3:09 PM EDT)ComponentValueRef RangeTest MethodAnalysis TimePerformed AtPathologist SignatureAuto WBC8.944.00 - 10.60 10*3/uL12/07/2024 3:58 PM [facility] ([facility])RBC4.703.80 - 5.00 10*6/uL12/07/2024 3:58 PM [facility] ([facility])Dfvljzkrqx83.912.0 - 15.0 g/dL12/07/2024 3:58 PM [facility] ([facility])Zcxssrblyp34.636.0 - 45.0 %12/07/2024 3:58 PM [facility] ([facility])MCV88.582.0 - 98.0 fL 12/07/2024 3:58 PM [facility] ([facility])MCH29.627.0 - 33.0 pg 12/07/2024 3:58 PM [facility] ([facility])MCHC33.432.0 - 35.0 g/dL 12/07/2024 3:58 PM [facility] ([facility])RDW12.911.5 - 15.0 %12/07/2024 3:58 PM [facility] ([facility])Neutrophils %63.440.0 - 72.0 %12/07/2024 3:58 PM [facility] ([facility])Lymphocytes %28.420.0 - 45.0 %12/07/2024 3:58 PM [facility] ([facility])Monocytes %6.85.0 - 12.0 %12/07/2024 3:58 PM [facility] ([facility])Eosinophils %1.00.0 - 6.0 %12/07/2024 3:58 PM [facility] ([facility])Basophils %0.30.0 - 1.0 %12/07/2024 3:58 PM T [facility] ([facility])Neutrophils Absolute5.661.60 - 7.60 10*3/uL 12/07/2024 3:58 PM [facility] ([facility])Lymphocytes Absolute2.541.20 - 4.00 10*3/uL12/07/2024 3:58 PM [facility] ([facility])Monocytes Absolute 0.610.10 - 1.00 10*3/uL12/07/2024 3:58 PM [facility] ([facility]) Eosinophils Absolute0.090.00 - 0.50 10*3/uL12/07/2024 3:58 PM [facility] ([facility])Basophils Absolute0.030.00 - 0.20 10*3/uL12/07/2024 3:58 PM T [facility] ([facility])Oqytifskz784(H)150 - 400 10*3/uL12/07/2024 3:58 PM [facility] ([facility])nRBC %0.00 %12/07/2024 3:58 PM [facility] ([facility])Immature Granulocytes %0.10.0 - 1.0 %12/07/2024 3:58 PM [facility] ([facility])Immature Granulocytes Absolute0.010.00 - 0.20 10*3/uL 12/07/2024 3:58 PM [facility] ([facility])Specimen (Source)Anatomical Location / LateralityCollection Method / VolumeCollection TimeReceived Time BloodVenous blood specimen / UnknownVenipuncture / Yrocbkw3112/07/2024 3:09 PM EDT1 3:50 PM EDT Narrative Authorizing ProviderResult TypeResult StatusCampbell ARGUETA BLOOD ORDERABLESFinal ResultPerforming OrganizationAddressCity/State/ZIP CodePhone Number [facility] ([facility]) [address] [place] [address] * MRSA nasal swab (12/07/2024 3:09 PM EDT)ComponentValueRef RangeTest Method Analysis TimePerformed AtPathologist SignatureMSSA DNANegativeNegative 12/08/2024 2:27 PM [facility] ([facility])MRSA DNANegativeNegative 12/08/2024 2:27 PM [facility] ([facility])Specimen (Source)Anatomical Location / LateralityCollection Method / VolumeCollection TimeReceived Time SwabNasal structure / UnknownNon-blood Collection / Qilrkpx9212/07/2024 3:09 PM EDT1 3:46 PM EDT Narrative [facility] ([facility]) - 12/08/2024 2:27 PM EDT Testing methodology [...] preclude nasal colonization. Authorizing ProviderResult TypeResult StatusCampbell ARGUETA MICROBIOLOGY - GENERAL ORDERABLESFinal ResultPerforming OrganizationAddressCity/State/ZIP Code Phone Number [facility]) [address] [place] [address] * APTT (12/07/2024 3:09 PM EDT)ComponentValueRef RangeTest MethodAnalysis Time Performed AtPathologist UdvyowvirwZQR45.625.0 - 35.0 Aqczkdd7212/07/2024 4:16 PM [facility] ([facility])Comment:Clinical significance of the APTT is questionable in the presence of heparin.Specimen (Source)Anatomical Location / LateralityCollection Method / VolumeCollection TimeReceived TimeBloodVenous blood specimen / UnknownVenipuncture / Obeltso5112/07/2024 3:09 PM EDT1 3:46 PM EDT Narrative Authorizing ProviderResult TypeResult StatusCampbell ARGUETA BLOOD ORDERABLESFinal ResultPerforming OrganizationAddressty/State/ZIP CodePhone Number [facility]) [address] [place] [address] * Protime-INR (12/07/2024 3:09 PM EDT)ComponentValueRef RangeTest MethodAnalysis TimePerformed AtPathologist CzlckwvhtToyiqwk25.312.3 - 14.8 Poyuqwe6112/07/2024 4:15 PM EDT[facility] ([facility])INR1.010.90 - 1.101 4:15 PM EDT [facility] ([facility])Comment: ACCCP RECOMMENDED INR FOR WARFARIN THERAPY CONDITION ?INR [...] TimeReceived TimeBloodVenous blood specimen / UnknownVenipuncture / Uhgdyja1812/07/2024 3:09 PM EDT1 3:46 PM EDT Narrative Authorizing ProviderResult TypeResult Karo ARGUETA BLOOD ORDERABLESFinal ResultPerforming OrganizationAddressCity/State/ZIP CodePhone Number [facility] ([facility]) [address] [place] [address] * Type and screen (12/07/2024 3:09 PM EDT)ComponentValueRef RangeTest Method Analysis TimePerformed AtPathologist SignatureABO YtckqpyvX62/29/2025 4:43 PM [facility] BLOOD BANKRh EvdmCLK0612/07/2024 4:43 PM [facility] BLOOD BANKAb ScrnNEG 12/07/2024 4:43 PM [facility] BLOOD BANKSpecimen (Source)Anatomical Location / LateralityCollection Method / VolumeCollection TimeReceived TimeBloodVenous blood specimen / UnknownVenipuncture / Rkxpjfw2712/07/2024 3:09 PM EDT1 3:46 PM EDT Narrative Authorizing ProviderResult TypeResult StatusCampbell ARGUETA BLOOD BANK TEST ORDERABLESFinal ResultPerforming OrganizationAddressCity/State/ZIP CodePhone Number [facility] * (ABNORMAL) Urine culture, routine (12/07/2024 3:09 PM EDT)ComponentValueRef RangeTest MethodAnalysis TimePerformed AtPathologist SignatureUrine Culture >100,000 CFU/Ml Klebsiella aerogenes(A) KAIDEN 12/09/2024 8:20 AM [facility] ([facility]ness)Specimen (Source)Anatomical Location / LateralityCollection Method / VolumeCollection TimeReceived TimeUrine Urine specimen obtained by clean catch procedure / UnknownNon-blood Collection / Eeramlr8612/07/2024 3:09 PM EDT1 3:43 PM EDT Narrative [...] or oral therapy options. Authorizing ProviderResult TypeResult StatusCampbell ARGUETA MICROBIOLOGY - GENERAL ORDERABLESFinal ResultPerforming OrganizationAddressCity/State/ZIP Code Phone Number [facility] ([facility]) [address] [place] [address] * Comprehensive metabolic panel (12/07/2024 3:09 PM EDT)ComponentValueRef Range Test MethodAnalysis TimePerformed AtPathologist AihgngzosSfphoe051145 - 145 mmol/L1 4:16 PM [facility])Potassium3.83.5 - 5.1 mmol/L1 4:16 [facility] ([facility])Etgrowqc87117 - 107 mmol/L1 4:16 [facility] ([facility])XK44097 - 31 mmol/L 12/07/2024 4:16 [facility] ([facility])Anion Ikm845 - 20 mmol/L 12/07/2024 4:16 [facility] ([facility])UOS953 - 25 mg/dL12/07/2024 4:16 [facility] ([facility])Creatinine0.730.60 - 1.20 mg/dL12/07/2024 4:16 [facility] ([facility])BUN/Creatinine Ratio15.110 4:16 [facility] ([facility])Sswsobv5407 - 100 mg/dL12/07/2024 4:16 [facility] ([facility])Calcium9.58.6 - 10.3 mg/dL12/07/2024 4:16 [facility] ([facility])ETS8077 - 39 U/L1 4:16 [facility] ([facility])ALT (SGPT)297 - 52 U/L1 4:16 [facility] ([facility]) Alkaline Hpdzlrwfvxf5588 - 104 U/L1 4:16 [facility] ([facility])Total Protein7.66.0 - 8.3 g/dL12/07/2024 4:16 [facility] ([facility])Albumin4.13.5 - 5.7 g/dL12/07/2024 4:16 [facility] ([facility])Total Bilirubin0.60.3 - 1.0 mg/dL12/07/2024 4:16 [facility] ([facility])eGFR98.3>60.0 mL/min/1.73m* 4:16 [facility] ([facility])Comment:[facility]???s estimated glomerular filtration rate (eGFR) [...] ARGUETA BLOOD ORDERABLESFinal ResultPerforming OrganizationAddressCity/State/ZIP CodePhone Number [facility] ([facility]) [address] [place] [address] * XR shoulder 2+ views left (12/07/2024 [...] radiographically. Electronically signed: Roney De La Torre. Authorizing ProviderResult TypeResult [facility] CenterCampbell Ortega MDAMERICAN HOSPITAL ASSOCIATION XR PROCEDURES Final Result * XR shoulder [...] radiographically. Acromioclavicular degenerative changes. Electronically signed: Roney Russell Authorizing ProviderResult TypeResult Karo Ortega MDAMERICAN HOSPITAL ASSOCIATION XR PROCEDURES Final Result * XR hip left 2 or 3 views (11/16/2024 8:44 AM EDT)Anatomical RegionLaterality ModalityLower Extremities, HipLeftComputed RadiographySpecimen (Source) Anatomical Location / LateralityCollection Method / VolumeCollection Time Received Time11/16/2024 9:15 AM EDT Impressions 11/16/2024 9:16 AM EDT Stable appearance of the total hip arthroplasty. No acute abnormality evident radiographically. Electronically signed: Roney De La Torre. Narrative 11/16/2024 9:16 AM EDT XR HIP 2 OR 3 VW LEFT 11/16/2024 8:39 AM CLINICAL INDICATIONS: ??Hip pain COMPARISON: 03/14/2022 FINDINGS: 3 views of the hip were obtained. 4 images are submitted. A total hip arthroplasty is evident. A single screw anchors the acetabular cup with no acute change in appearance. The femoral stem is unchanged as well with no acute osseous abnormality in the proximal femur. Mild bone demineralization is present within the pelvis with no acute abnormality. An intramedullary nail is evident within the proximal femur. Procedure Note Roney De La Torre MD - 11/16/2024 XR HIP 2 OR 3 VW LEFT 11/16/2024 8:39 AM CLINICAL INDICATIONS: Hip pain COMPARISON: 03/14/2022 FINDINGS: 3 views of the hip were obtained. 4 images are submitted. A total hip arthroplasty is evident. A single screw anchors the acetabular cup with noacute change in appearance. The femoral stem is unchanged as well with noacute osseous abnormality in the proximal femur. Mild bone demineralization ispresent within the pelvis with no acute abnormality. An intramedullary nail isevident within the proximal femur. IMPRESSION: Stable appearance of the total hip arthroplasty. No acute abnormalityevident radiographically. Electronically signed: Roney De La Torre. Authorizing ProviderResult TypeResult StatusVibibiana Ortega MDIMG XR PROCEDURES Final Result from Last 3 Months Insurance Advance Directives * Full Code (Latest Code Status on File) Date ActivatedDate AdoacmkpqoeUxxsbiut96/19/2022 2:56 PM10 8:17 PM Care Teams Team MemberRelationshipSpecialtyStart DateEnd Date Anastacia Ham MD 3 [facility] PCP - General09/27/21
--- OUTSIDE RECORDS SUMMARY | 2024-12-14 14:27 | XMS_ITS | Encounter Summary ---
Author Organization [facility] Address [address] [place] [address] Care Team Providers Care Spray Machine Loader Name Role Phone Anastacia Ham MD Primary Care Provider [phone] Encounter Details DateTypeDepartmentCare Team (Latest Contact Info)Qjqitfdipih44/03/2024Clinisync Result Encounter [facility] External Department Unsolicited Leah ePna, KELVIN [address] [place] [address] [place] [address] Social History Tobacco UseTypesPacks/DayYears UsedDateSmoking Tobacco: NeverSmokeless Tobacco: NeverPHQ-2AnswerDate RecordedPatient Health Questionnaire-2 [id number] CommentsNoSex and Gender InformationValueDate RecordedSex Assigned at BirthNot on fileLegal HkbDdvujk44/15/2023 6:54 PM EDTGender IdentityNot on file Sexual OrientationNot on filedocumented as of this encounter Functional Status * Over the past 2 weeks, how often have you been bothered by any of the following problems?QuestionAnswerDate of AssessmentAuthorLittle interest or pleasure in doing thingsNot at all11/24/2024 2:01 PM Erika Reynolds MA Feeling down, depressed, or hopelessNot at all11/24/2024 2:01 PM Erika Reynolds, MAPatient Health Questionnaire-2 Pvyja067 2:01 PM Erika Reynolds MA documented as of this encounter Plan of Treatment Not on file documented as of this encounter Procedures Procedure NamePriorityDate/TimeAssociated DiagnosisCommentsUS VAC ASST BX BREAST RT W CLIP11/12/2023 10:32 AM EDT documented in this encounter Results * US VAC ASST BX BREAST RT W CLIP (11/12/2023 10:32 AM EDT)Anatomical Region LateralityModalityRadiographic ImagingSpecimen (Source)Anatomical Location / LateralityCollection Method / VolumeCollection TimeReceived Time11/12/2023 10:32 AM EDT Narrative 11/12/2023 10:35 AM EDT [facility] ?[address] ? [place] [address] ? Ultrasound Report ? Signed ? Patient: RUDYNELL,KEILA ?MR#: [id number] ?? : 1970 ?Acct:[id number] ?? Age/Sex: 53 / F ?ADM Date: 11/12/23 ?? Loc: US ? Attending Dr: Leah Pena ? Ordering Physician: Leah Pena ?? Date of Service: 11/12/23 ?? Procedure(s): US breast vac bx w/ clip RT ?? Accession Number(s): [id number] ? cc: Leah Pena ? [facility] ? [address] ? [place] [address] ? Patient Name: ?? KEILA ??PINNELL ? MRN: [facility]:[id number] ? date: 1970 ?Sex: F ?? Assigned Patient Location: US ?? Current Patient Location: US ?? Accession/Order Number: [id number] ?? Exam Date: 11/12/2023 ??09:30 ?Report Date: 11/12/2023 ??10:32 ? At the request of: ?? LEAH ??BECKY ? Procedure: ??US breast vac bx w/ clip RT ? EXAMINATION: US breast vac bx w/ clip RT ? HISTORY: Mixed Cystic and Solid Lesion ? COMPARISON: No relevant comparison available. ? TECHNIQUE: After obtaining informed consent, an ultrasound-guided biopsy was ?? performed in the usual sterile manner. ? FINDINGS: ?? IMAGING: Ultrasound ?? BIOPSY NEEDLE: 13-gauge vacuum-assisted core biopsy needle ?? SPECIMEN TYPE, #, LOCATION: 5 samples, 9:00 right breast mixed nodule ?? MEDICATION: 4 cc buffered lidocaine without epinephrine superficial. 8 cc ?? buffered lidocaine with epinephrine deep ?? COMPLICATIONS: None. ?? LABORATORY: Pending ?? OTHER: Negative. ? US/US breast vac bx w/ clip RT ?? IMPRESSION: ? Uneventful ultrasound guided core biopsy. The patient was instructed to obtain ? follow up care and biopsy results from the referring physician. ? Electronically authenticated by: ELAINE ??YIFAN ?? Date: 11/12/2023 ??10:32 ? Dictated By: ?Elaine Saha M.D. ? Signed By: ?11/12/23 1035 ? DD/ 1032 ? TD/TT: ? Table Cut Off Saw Operator: Procedure Note Radiology, Radiologist, MD - 11/12/2023 [facility] [place] [id number] Ultrasound Report Signed Patient: KEILA RICHARDSONMR#: [id number] : 1970Acct:[id number] Age/Sex: 53 / FADM Date: 11/12/23 Loc: US Attending Dr: Leah Pena Ordering Physician: Leah Pena Date of Service: 11/12/23 Procedure(s): US breast vac bx w/ clip RT Accession Number(s): [id number] cc: Leah Pena [facility] [place] [id number] Patient Name: KEILA RICHARDSON MRN: [facility]:[id number] date: 1970 Sex: F Assigned Patient Location: US Current Patient Location: US Accession/Order Number: [id number] Exam Date: 11/12/2023 09:30 Report Date: 11/12/2023 10:32 At the request of: LEAH PENA Procedure: US breast vac bx w/ clip RT EXAMINATION: US breast vac bx w/ clip RT HISTORY: Mixed Cystic and Solid Lesion COMPARISON: No relevant comparison available. TECHNIQUE: After obtaining informed consent, an ultrasound-guided biopsywas performed in the usual sterile manner. FINDINGS: IMAGING: Ultrasound BIOPSY NEEDLE: 13-gauge vacuum-assisted core biopsy needle SPECIMEN TYPE, #, LOCATION: 5 samples, 9:00 right breast mixed nodule MEDICATION: 4 cc buffered lidocaine without epinephrine superficial. 8 cc buffered lidocaine with epinephrine deep COMPLICATIONS: None. LABORATORY: Pending OTHER: Negative. US/US breast vac bx w/ clip RT IMPRESSION: Uneventful ultrasound guided core biopsy. The patient was instructed toobtain follow up care and biopsy results from the referring physician. Electronically authenticated by: ELAINE SAHA Date: 11/12/2023 10:32 Dictated By: Elaine Saha M.D. Signed By:11/12/23 1035 DD/ 1032 TD/TT: Table Cut Off Saw Operator: Authorizing ProviderResult TypeResult StatusAmy Becky PAIMG XR PROCEDURESFinal Result documented in this encounter Visit Diagnoses Not on filedocumented in this encounter Care Teams Team MemberRelationshipSpecialtyStart DateEnd Date Anastacia Ham MD [address] [place] [address] PCP - GeneralFamily Medicine09/28/23documented as of this encounter
--- OUTSIDE RECORDS SUMMARY | 2024-12-14 14:27 | XMS_ITS | Encounter Summary ---
Author Organization [facility] Address [address] [place] [address] Care Team Providers Care Manager Highway Name Role Phone Anastacia Ham MD Primary Care Provider [phone] Encounter Details DateTypeDepartmentCare Team (Latest Contact Info)Enizzypzsfg03/03/2024Clinisync Result Encounter [facility] External Department Unsolicited Leah Berger, KELVIN [address] [place] [address] [place] [address] Social History Tobacco UseTypesPacks/DayYears UsedDateSmoking Tobacco: NeverSmokeless Tobacco: NeverPHQ-2AnswerDate RecordedPatient Health Questionnaire-2 [id number] CommentsNoSex and Gender InformationValueDate RecordedSex Assigned at BirthNot on fileLegal EqlScbelu37/15/2023 6:54 PM EDTGender IdentityNot on file Sexual OrientationNot on filedocumented as of this encounter Functional Status * Over the past 2 weeks, how often have you been bothered by any of the following problems?QuestionAnswerDate of AssessmentAuthorLittle interest or pleasure in doing thingsNot at all11/24/2024 2:01 PM Erika Reynolds MA Feeling down, depressed, or hopelessNot at all11/24/2024 2:01 PM Erika Reynolds, MAPatient Health Questionnaire-2 Cxgfu067 2:01 PM Erika Reynolds MA documented as of this encounter Plan of Treatment Not on file documented as of this encounter Procedures Procedure NamePriorityDate/TimeAssociated DiagnosisCommentsMAMMO POST BIOPSY RIGHT11/12/2023 12:23 PM EDT documented in this encounter Results * MAMMO POST BIOPSY RIGHT (11/12/2023 12:23 PM EDT)Anatomical RegionLaterality ModalityOtherSpecimen (Source)Anatomical Location / LateralityCollection Method / VolumeCollection TimeReceived Time11/12/2023 12:23 PM EDT Narrative 11/12/2023 12:24 PM EDT [facility] ?[address] ? [place] [address] ? Mammography Report ? Signed ? Patient: KEILA RICHARDSON ?MR#: [id number] ?? : 1970 ?Acct:[id number] ?? Age/Sex: 53 / F ?ADM Date: 11/12/23 ?? Loc: US ? Attending Dr: Leah Berger ? Ordering Physician: Leah Berger ?Results: ? Date of Service: 11/12/23 ?Follow Up: ? Procedure(s): MM post biopsy RT ?? Accession Number(s): [id number] ? cc: Leah Berger ? Patient Name: ? KEILA RICHARDSON ? MR#: [id number] ? : 1970 ? Exam Date: 11/12/2023 ?? Ordering Doctor: KELVIN Berger . ? RADIOLOGY REPORT ? PROCEDURE: ? MM POST BIOPSY RT ? COMPARISON: ? MM DIAGNOSTIC MAMMO UNILAT RT, 11/04/2023. ? INDICATIONS: ? Mixed Cystic and Solid Lesion ? BREAST COMPOSITION: ? FINDINGS: ? Post-Procedure Mammogram for Marker Placement ? BIOPSY MARKER: ? A metallic marker has been placed in the targeted location ?? within the upper outer quadrant of the right breast. ?? BREAST FINDINGS: ?The mammographic abnormality corresponds to the ?? mammographic abnormality ? Dictated by: Clifford Herbert MD on 11/12/2023 at 12:22 ? Approved by: Clifford Herbert MD on 11/12/2023 at 12:22 ? Dictated By: ?Clifford Herbert M.D. ? Signed By: ?11/12/23 1224 ? DD/ 1223 ? TD/TT: ? Ornamental Ironworker: Procedure Note Radiology, Radiologist, MD - 11/12/2023 [place] [address] Mammography Report Signed Patient: KEILA RICHARDSONMR#: [id number] : 1970Acct:[id number] Age/Sex: 53 / FADM Date: 11/12/23 Loc: US Attending Dr: Leah Berger Ordering Physician: Leah Christiansonults: Date of Service: 11/12/23Follow Up: Procedure(s): MM post biopsy RT Accession Number(s): [id number] cc: Leah Berger Patient Name: KEILA RICHARDSON MR#: [id number] : 1970 Exam Date: 11/12/2023 Ordering Doctor: KELVIN Berger . RADIOLOGY REPORT PROCEDURE: MM POST BIOPSY RT COMPARISON: MM DIAGNOSTIC MAMMO UNILAT RT, 11/04/2023. INDICATIONS: Mixed Cystic and Solid Lesion BREAST COMPOSITION: FINDINGS: Post-Procedure Mammogram for Marker Placement BIOPSY MARKER: A metallic marker has been placed in the targetedlocation within the upper outer quadrant of the right breast. BREAST FINDINGS: The mammographic abnormality corresponds to the mammographic abnormality Dictated by: Clifford Herbert MD on 11/12/2023 at 12:22 Approved by: Clifford Herbert MD on 11/12/2023 at 12:22 Dictated By: Clifford Herbert M.D. Signed By:11/12/234 DD/ 22 TD/TT: Ornamental Ironworker: Authorizing ProviderResult TypeResult StatusLeah Murphyey PACLINISYNC IMAGINGFinal Result documented in this encounter Visit Diagnoses Not on filedocumented in this encounter Care Teams Team MemberRelationshipSpecialtyStart DateEnd Date Anastacia Ham MD [address] [place] [address] PCP - GeneralFamily Medicine09/28/23documented as of this encounter
--- OUTSIDE RECORDS SUMMARY | 2024-12-14 14:27 | XMS_ITS | Encounter Summary ---
Author Organization [facility] Address [address] [place] [address] Care Team Providers Care Java Sql Developer Name Role Phone Anastacia Ham MD Primary Care Provider [phone] Encounter Details DateTypeDepartmentCare Team (Latest Contact Info)Rhlzrhxwoci09/25/2024Clinisync Result Encounter [facility] External Department Unsolicited Leah Berger, KELVIN [address] [place] [address] [place] [address] Social History Tobacco UseTypesPacks/DayYears UsedDateSmoking Tobacco: NeverSmokeless Tobacco: NeverPHQ-2AnswerDate RecordedPatient Health Questionnaire-2 [id number] CommentsNoSex and Gender InformationValueDate RecordedSex Assigned at BirthNot on fileLegal IulJxcehy76/15/2023 6:54 PM EDTGender IdentityNot on file Sexual OrientationNot on filedocumented as of this encounter Functional Status * Over the past 2 weeks, how often have you been bothered by any of the following problems?QuestionAnswerDate of AssessmentAuthorLittle interest or pleasure in doing thingsNot at all11/24/2024 2:01 PM Erika Reynolds MA Feeling down, depressed, or hopelessNot at all11/24/2024 2:01 PM Erika Reynolds, MAPatient Health Questionnaire-2 Vfsgc210 2:01 PM Erika Reynolds MA documented as of this encounter Plan of Treatment Not on file documented as of this encounter Procedures Procedure NamePriorityDate/TimeAssociated DiagnosisCommentsBI US BREAST LIMITED RIGHT11/04/2023 11:50 AM EDT documented in this encounter Results * Right breast US limited (11/04/2023 11:50 AM EDT)Anatomical RegionLaterality ModalityBreastRightUltrasoundSpecimen (Source)Anatomical Location / Laterality Collection Method / VolumeCollection TimeReceived Time11/04/2023 11:50 AM EDT Narrative 11/04/2023 11:52 AM EDT [facility] ?[address] ? [place] [address] ? Ultrasound Report ? Signed ? Patient: KEILA RICHARDSON ?MR#: [id number] ?? : 1970 ?Acct:[id number] ?? Age/Sex: 53 / F ?ADM Date: 11/04/23 ?? Loc: MAMMO ? Attending Dr: Leah Berger ? Ordering Physician: Leah Berger ?? Date of Service: 11/04/23 ?? Procedure(s): US breast RT limited ?? Accession Number(s): [id number] ? cc: Leah Berger ? Patient Name: ? KEILA RICHARDSON ? MR#: [id number] ? : 1970 ? Exam Date: 11/04/2023 [...] Cancers ? None ? LOCATION: ? [facility] ? BREAST COMPOSITION: ? There are [...] Angel Saldana M.D. ? Signed By: ?11/04/23 1152 ? DD/ 1150 ? TD/TT: ? Assembly Hand: Procedure Note Radiology, Radiologist, - 11/04/2023 [place] [address] Ultrasound Report Signed Patient: KEILA RICHARDSONMR#: [id number] : 1970Acct:[id number] Age/Sex: 53 / FADM Date: 11/04/23 Loc: MAMMO Attending Dr: Leah Berger Ordering Physician: Leah Berger Date of Service: 11/04/23 Procedure(s): US breast RT limited Accession Number(s): [id number] cc: Leah Berger Patient Name: KEILA RICHARDSON MR#: [id number] : 1970 Exam Date: 11/04/2023 Ordering Doctor: [...] Treatments None Family Cancers None LOCATION: [facility] BREAST COMPOSITION: There are scattered areas [...] By: Jose Angel Saldana M.D. Signed By:11/04/23 1152 DD/ 1150 TD/TT: Assembly Hand: Authorizing ProviderResult TypeResult StatusAmy [facility] US PROCEDURESFinal Result documented in this encounter Visit Diagnoses Not on filedocumented in this encounter Care Teams Team MemberRelationshipSpecialtyStart DateEnd Date Anastacia Ham MD [address] [place] [address] PCP - GeneralFamily Medicine09/28/23documented as of this encounter
--- OUTSIDE RECORDS SUMMARY | 2024-12-14 14:30 | XMS_ITS | CCD ---
Author Organization [facility] Care Team Providers Care Boarding Room Fixer Name Role Phone Shaina Arellano Unavailable ANTONIO, DR REYNA Consulting Unavailable ANTONIO, DR REYNA Primary Care Unavailable MISC, DR PEREZ Attending Unavailable MISC, DR PEREZ Admitting Unavailable OROPEZA, ALEXANDRA Consulting Unavailable ANTONIO, DR REYNA Primary Care Unavailable PELLETIER, DR MO Hoffman Attending Unavailable PELLETIER, DR MO Hoffman Admitting Unavailable PELLETIER, DR MO Hoffman Consulting Unavailable ANTONIO, DR REYNA Primary Care Unavailable PELLETIER, DR MO Hoffman Attending Unavailable PELLETIER, DR MO Hoffman Admitting Unavailable OROPEZA, ALEXANDRA Consulting Unavailable PELLETIER, DR MO Hoffman Consulting Unavailable ANTONIO, DR REYNA Primary Care Unavailable PELLETIER, DR MO Hoffman Attending Unavailable PELLETIER, DR MO Hoffman Admitting Unavailable OROPEZA, ALEXANDRA Consulting Unavailable ANTONIO, DR REYNA Primary Care Unavailable PELLETIER, DR MO Hoffman Attending Unavailable PELLETIER, DR MO Hoffman Admitting Unavailable OROPEZA, ALEXANDRA Consulting Unavailable ANTONIO, DR REYNA Primary Care [...] Attending Unavailable MISC, DR PEREZ Admitting Unavailable Lois Che Attending Unavailable Antonio, MD Maribell Marcus Primary Care Provider [phone] MD Moncho Chao Jr Emergency Provider MD Moncho Johnson Attending Provider Leah Berger Admitting Unavailable Leah Berger Attending Unavailable Ashton, Rugen M Primary Care Unavailable Olexa, Moncho Admitting Unavailable Olexa, Moncho Attending Unavailable Olexa, Moncho Admitting Unavailable Olexa, Moncho Attending Unavailable Antonio, Rugen M Primary Care Unavailable Ashton, Rugen M Primary Care Unavailable Moncho Chao Jr Admitting Unavailable Moncho Chao Jr Attending Unavailable MARIA FERNANDA Berger Attending Provider [phone] Maribell Alvarez MD Primary Care Provider [phone] Maribell Alvarez MD Primary Care Provider [phone] ALAN, YARI A Referring Unavailable ANTONIO, RUGEN M Primary Care Unavailable ALAN, YARI A Referring Unavailable ANTONIO, RUGEN M Primary Care Unavailable ROBERT MOREL B Referring Unavailable ANTONIO, RUGEN M Primary Care Unavailable ALAN, YARI A Attending Unavailable ALAN, YARI A Referring Unavailable ANTONIO, RUGEN M Primary Care Unavailable ALAN, YARI A Admitting Unavailable ALAN, YARI A Attending Unavailable ALAN, YARI A Referring Unavailable ANTONIO, RUGEN M Primary Care Unavailable ANTONIO, RUGEN M Referring Unavailable ANTONIO, RUGEN M Primary Care Unavailable EMILY OLEARY Admitting Unavailable MORGANEMILY Attending Unavailable ANTONIO, RUGEN M Primary Care Unavailable MORGANEMILY C Attending Unavailable ANTONIO, RUGEN M Referring Unavailable ANTONIO, RUGEN M Primary Care Unavailable ANTONIO, RUGEN M Referring Unavailable ANTONIO, RUGEN M Primary Care Unavailable ANTONIO, RUGEN M Referring Unavailable ANTONIO, RUGEN M Primary Care Unavailable ANTONIO, RUGEN M Referring Unavailable ANTONIO, RUGEN M Primary Care Unavailable MORGANEMILY C Attending Unavailable ANTONIO, RUGEN M Referring Unavailable ANTONIO, RUGEN M Primary Care Unavailable ALAN, YARI A Referring Unavailable ANTONIO, RUGEN M Primary Care Unavailable LEAH BERGER Attending Unavailable ANTONIO, RUGEN M Attending Unavailable Ashton Maribell WONG Primary Care Provider [phone] EMILY OLEARY Attending Unavailable ANTONIO, RUGEN M Referring Unavailable ANTONIO, RUGEN M Primary Care Unavailable HILDA ALMAGUER Attending Unavailable ANTONIO, RUGEN M Referring Unavailable ANTONIO, RUGEN M Primary Care Unavailable ANTONIO, RUGEN M Referring Unavailable ANTONIO, RUGEN M Primary Care Unavailable EMILY OLEARY Attending Unavailable ANTONIO, RUGEN M Referring Unavailable ANTONIO, RUGEN M Primary Care Unavailable MORGANEMILY Attending Unavailable ANTONIO, RUGEN M Referring Unavailable ANTONIO, RUGEN M Primary Care Unavailable SHENDGE, VITHAL Admitting Unavailable SHENDGE, VITHAL Attending Unavailable SHENDGE, VITHAL Attending Unavailable SHENDGE, VITHAL Referring Unavailable SHENDGE, VITHAL Referring Unavailable SHENDGE, VITHAL Referring Unavailable SHENDGE, VITHAL Referring Unavailable SHENDGE, VITHAL Attending Unavailable Allergies Allergy ClassificationReported Allergen(s)Allergy TypeDate of OnsetReaction(s) Facility (19 sources)Wound Dressing AdhesiveDrug Nyxayln56-14-5206[facility] (20 sources)Adhesive agent; Translations: [ADHESIVE]Propensity to adverse reactions to vjyq99-54-1013IythFrvZywqwg [facility] (1 source)Adhesive agentDrug Iubnuxd31-93-9341CxwvTwhDrsihf Health System Work Phone: (1 source)ADHESIVE TAPE-SILICONES; Translations: [ADHESIVE TAPE-SILICONES] Propensity to adverse reactions to drug (disorder)85-19-8360PsxehjngzsLouis [facility] Medications Current Medications MedicationDrug Class(es)DatesSig (Normalized)Sig (Original)acetaminophen 325 mg oral tablet (11 sources)Start: 20-06-6195wecgsptnkkcga (TYLENOL) tablet 650 mgStart: 91-45-4887zkep 500 mg by mouth every four hoursAcetaminophen Active 500 MG PO Q4H August 08, 2020 12:00amascorbic acid 500 mg oral tablet (20 sources)Vitamin CStart: 08-03-2020 End: 26-46-3612jmkm 1 tablet by mouth once dailyAscorbic Acid (Vitamin C) (Vitamin C) 500 mg Tablet Active 500 MG PO Daily August 08, 2020 12:00amtake 2 tablets by mouth in the morningascorbic acid (VITAMIN C) 500 mg tablet Take 2 tablets (1,000 mg total) by mouth in the morning. Activetake 1 tablet by mouth once dailyascorbic acid (Vitamin C) 500 MG tablet Take 500 mg by mouth Daily ActiveBoswellia Teresa (BOSWELLIA PO) (19 sources)Boswellia Teresa (BOSWELLIA PO) Take by mouth ActiveBOSWELLIA TERESA EXTRACT ORAL (7 sources)take 1 capsule by mouth in the morningBOSWELLIA TERESA EXTRACT ORAL Take 1 capsule by mouth in the morning. ActiveBoswellia Teresa-Turmeric Xt (2 sources)Start: 54-14-7624Zsnhqkoum Teresa-Turmeric Xt Active CAP PO October 08, 2023 12:00amBupivacaine / EPINEPHrine (4 sources)alpha-Adrenergic Agonist, beta-Adrenergic Agonist, Catecholamine, Amide Local AnestheticStart: 22-80-5428orbdblrxhah-EPINEPHrine (MARCAINE w/EPI) 0.5 %-1:220830 injection 30 mLCalcium & Magnesium Carbonates (9 sources)Calcium & Magnesium Carbonates ActiveCalcium 600 + D 600-200 MG-UNIT (9 sources)Start: 29-72-9148ahjw 1 tablet by mouth three times dailyCalcium 600 + D 600-200 MG-UNIT 1 tablet Orally TID for 30 day(s) Aug, Activecalcium citrate 950 mg oral tablet (6 sources) End: 72-65-8255jtme 2 tablets by mouth three times dailycalcium citrate (Calcitrate) 950 (200 Ca) MG tablet TAKE TWO TABLETS BY MOUTH THREE TIMES DAILY 11/25/2023 Discontinuedcholecalciferol 0.05 mg chewable tablet (10 sources)Vitamin Dcholecalciferol, vitamin D3, 50 mcg (2,000 unit) tablet,chewable Chew 1 tablet and swallow in the morning. ActiveCholecalciferol 50 MCG (2000 UT) chewable tablet Chew 1 tablet in the morning. Active docosahexaenoic acid 120 mg / eicosapentaenoic acid 180 mg oral capsule (19 sources)omega-3 (Fish Oil) 1000 MG capsule 1 capsule 1 (one) time each day at the same time Activefluticasone propionate 0.5 mg/ml topical cream (20 sources)CorticosteroidStart: 08-11-2023 End: 82-26-9202kmvkhrpheev (Cutivate) 0.05 % cream Indications: Eczema of both hands Apply topically 2 (two) timesa day 15 g 3 08/11/2023 Activelatanoprost 0.05 mg/ml ophthalmic solution (17 sources)Prostaglandin Analogtake 1 drop(s) into the eye(s) once daily latanoprost (XALATAN) 0.005 % ophthalmic solution Administer 1 drop to both eyes nightly. Activetake 1 drop(s) into the eye(s) at bedtimelatanoprost (Xalatan) 0.005 % ophthalmic solution Administer 1 drop into both eyes at bedtime Active magnesium oxide 200 mg oral tablet (17 sources)take 1 tablet by mouth once daily as neededmagnesium oxide 200 mg magnesium tablet Take 200 mg by mouth nightly as needed. ActiveMilk thistle extract (19 sources)Milk Thistle 1000 MG capsule Take by mouth ActiveMultiple Vitamin (multivitamin) capsule (19 sources)take 1 capsule by mouth once dailyMultiple Vitamin (multivitamin) capsule Take 1 capsule by mouth Daily Chyltngpytrcjk-bpio-IT-calcium &mins (THERAGRAN-M) 9 mg iron-400 mcg tablet (3 sources)grmkgyov-mpup-AA-calcium &mins (THERAGRAN-M) 9 mg iron-400 mcg tablet Take 1 tablet by mouth inthe morning. ActiveMultivital-M (9 sources)Multivital-M Orally ActiveMultivitamin preparation (6 sources)Start: 19-16-3264wpfk 1 tablet by mouth once dailyMultivitamin Active 1 TAB PO Daily August 31, 2023 12:00amomega 1-dvt-wqa-fish oil 100-400-1,000 mg capsule (14 sources)omega 6-wat-bef-fish oil 100-400-1,000 mg capsule Take 1 capsule by mouth in the morning. [place] 3 600 mg, d3 50 mg. Activesulfamethoxazole 800 mg / trimethoprim 160 mg oral tablet (1 source)Dihydrofolate Reductase Inhibitor Antibacterial, Sulfonamide AntimicrobialStart: 12-09-2024 End: 51-57-9180mifb 1 tablet by mouth once in the morningsulfamethoxazole- trimethoprim (BACTRIM DS) 800-160 mg per tablet Take 1 tablet by mouth in the morning and 1 tablet before bedtime. Do all this for 7 days. 14 tablet 12/09/2024 12/16/2024 ActiveTurmeric extract (20 sources)Start: 03-64-5389Fdjyntxr Active MG PO August 31, 2023 12:00am Turmeric 500 MG capsule Take by mouth Activeturmeric root extract 500 mg capsule (7 sources)take 1 capsule by mouth in the morningturmeric root extract 500 mg capsule Take 1 capsule by mouth in the morning. ActiveZinc (19 sources)zinc 50 MG tablet Take by mouth Activezinc acetate 50 mg oral capsule (7 sources)take 1 tablet by mouth in the morningzinc acetate 50 mg (zinc) capsule Take 1 tablet by mouth in the morning. Active Completed/Discontinued Medications MedicationDrug Class(es)DatesSig (Normalized)Sig (Original)acetaminophen 325 mg / HYDROcodone bitartrate 5 mg oral tablet (20 sources)Opioid AgonistStart: 06-21-2024 End: 79-32-4553NLSNUwmrcsc-acetaminophen (NORCO) 5-325 mg per tablet Indications: Acute post-operative pain Take 1tablet by mouth every 6 (six) hours as needed for pain for up to 15 doses. Max Daily Amount: 4 tablets 15 tablet 06/21/2024 08/07/2024 Discontinued (Therapy completed)Start: 09-08-2023 End: 51-70-5872hybd 1 tablet by mouth twice dailyHydrocodone-Acetaminophen Discontinued 1 TAB PO Twice daily 11 15September 08, 2023 October 08, 2023 10:06am tenStart: 08-31-2023 End: 94-88-2107zcfc 1 tablet by mouth twice dailyHydrocodone-Acetaminophen Discontinued 1 TAB PO Twice daily 11 15August 31, 2023 August 31, 2023 1:12pm tenStart: 08-31-2023 End: 53-45-9003utwl 1 tablet by mouth twice dailyHydrocodone-Acetaminophen Discontinued 1 TAB PO Twice daily 11 15August 31, 2023 September 08, 2023 11:35am tenStart: 08-27-2023 End: 89-32-0266msjf 1 tablet by mouth every six hoursHydrocodone-Acetaminophen Discontinued 1 - 2 TAB PO Q6H 29 05August 27, 2023 September 08, 2023 11:17amStart: 38-37-8607plwo 1-2 tablets by mouth every four to six hours as needed for pain HYDROcodone-Acetaminophen 5-325 MG 1-2 tablet as needed for pain Orally every 4- 6 hrs for 7 days 2020 ActiveStart: 08-03-2020 End: 88-56-6137tmkg 1 tablet by mouth every four hoursHydrocodone-Acetaminophen Discontinued 1 TAB PO Q4H 40 7 August 08, 2020 August 27, 2023 2:32ambaclofen 10 mg oral tablet (9 sources)gamma-Aminobutyric Acid-ergic AgonistStart: 08-31-2023 End: 11-23-0349veha 10 mg by mouth once dailyBaclofen Discontinued 10 MG PO Daily August 31, 2023 12:00am October 08, 2023 10:06amBOSWELLIA TERESA- TURMERIC XT ORAL (8 sources)Start: 10-08-2023 End: 19-89-6934pszu 1 capsule by mouth in the morningBOSWELLIA TERESA-TURMERIC XT ORAL Take 1 capsule by mouth in the morning. 10/08/2023 03/11/2024 Dis continued (Therapy completed)Start: 82-93-5549JSRUHOAWT TERESA-TURMERIC XT ORAL 10/08/2023 ActiveCalcium Carbonate-Vitamin D3 (Oyster Shell Calcium-Vit D3) 500 mg(1,250mg) -200 unit Tablet (14 sources)Start: 08-08-2020 End: 39-73-3258dzdb 2 tablets by mouth once at mealtimeCalcium Carbonate-Vitamin D3 (Oyster Shell Calcium-Vit D3) 500 mg(1,250mg) -200 unit Tablet Discontinued 2 TAB PO 3x/Day with meals August 08, 2020 12:00am October 08, 2023 10:06am Start: 51-13-7592axyz 2 tablets by mouth once at mealtimeCalcium Carbonate- Vitamin D3 (Oyster Shell Calcium-Vit D3) 500 mg(1,250mg) -200 unit Tablet Active 2 TAB PO 3x/Day with meals August 08, 2020 12:00amStart: 08-03-2020 End: 19-68-7252xjdn 1 tablet by mouth once at mealtimeCalcium Carbonate-Vitamin D3 (Oyster Shell Calcium-Vit D3) 500 mg(1,250mg) -200 unit Tablet Discontinued 1 TAB PO 3x/Day with meals August 03, 2020 12:00am August 09, 2020 10:01am ceFAZolin (ANCEF) 2,000 mg in sodium chloride 0.9 % 100 mL IVPB (4 sources)Start: 03-17-2024 End: 13-36-4771tnEVBprpi (ANCEF) 2,000 mg in sodium chloride 0.9 % 100 mL IVPB Start: 84-96-1817wxUBSaoif (ANCEF) 2,000 mg in sodium chloride 0.9 % 100 mL IVPB cyclobenzaprine hydrochloride 5 mg oral tablet (20 sources)Muscle RelaxantStart: 08-03-2020 End: 27-30-2799ltjr 5 mg by mouth every eight hoursCyclobenzaprine Discontinued 5 MG PO Q8H 30 August 08, 2020 12:00am August 31, 2023 12:43pmStart: 01-17-2014 take 1 tablet by mouth every eight hoursCyclobenzaprine HCl 10 MG 1 tablet Orally every 8 hours Jan, Active End: 41-50-3201jygh 1 tablet by mouth three times daily as neededcyclobenzaprine (Flexeril) 10 MG tablet Take 1 tablet by mouth 3 (three) times a day as needed 11/25/2023 Discontinueddocusate sodium 100 mg oral capsule (14 sources)Start: 08-03-2020 End: 80-65-4171dxsx 1 capsule by mouth twice dailyDocusate Sodium (Dok) 100 mg Capsule Discontinued 100 MG PO Twice daily August 08, 2020 12:00am August 31, 2023 12:43pmdocusate sodium 50 mg / sennosides, senior care 8.6 mg oral tablet (7 sources)Start: 08-27-2023 End: 06-36-9008stsd 2 tablets by mouth once daily at bedtimeSennosides-Docusate Sodium (Senna Plus) 8.6-50 mg tablet Discontinued 2 TAB PO Daily at bedtime 30 J [email or web address] 12:00am October 08, 2023 10:07am0.3 ml enoxaparin sodium 100 mg/ml prefilled syringe (14 sources)Low Molecular Weight HeparinStart: 08-03-2020 End: 52-87-3180Xhgdfallyv (Lovenox) 30 mg/0.3 mL Syringe Discontinued 30 MG SUBCUT Every 12 hours at 1000 & 2200 August 08, 2020 12:00am August 31, 2023 12:43pmferrous sulfate 324 mg delayed release oral tablet (17 sources)Start: 08-03-2020 End: 62-36-4694izox 324 mg by mouth twice dailyFerrous Sulfate Discontinued 324 MG PO Twice daily August 08, 2020 12:00am August 31, 2023 12:43pmtake 1 tablet by mouth in the morningFerrous Sulfate (IRON PO) Take 1 tablet by mouth in the morning. Activegabapentin 600 mg oral tablet (4 sources)Anti-epileptic AgentStart: 03-17-2024 End: 04-18-6731vorkdjixhi (NEURONTIN) tablet 600 mgibuprofen 800 mg oral tablet (15 sources)Nonsteroidal Anti-inflammatory DrugStart: 06-21-2024 End: 21-98-9306fbkj 1 tablet by mouth every eight hours as needed for pain ibuprofen (MOTRIN) 800 mg tablet Take 1 tablet (800 mg total) by mouth every 8 (eight) hours as needed for pain. 30 tablet 06/21/2024 08/07/2024 Discontinued (Therapy completed)Start: 37-51-5795wzja 1 tablet by mouth every six hours Ibuprofen (Advil) 200 mg tablet Active 200 MG PO Every 6 hours October 08, 2023 12:00amtake 1 tablet by mouth three times daily at mealtime as neededAdvil 200 MG 1 tablet with food or milk as needed Orally Three times a day Activelidocaine 0.04 mg/mg medicated patch (14 sources)Antiarrhythmic, Amide Local AnestheticStart: 08-03-2020 End: 66-37-4757sjpka 1 dose topically once dailyLidocaine (Lidocaine Pain Relief) 4 % Adhesive Patch,Medicated Discontinued 1 PATCH TOPICAL Daily August 08, 2020 12:00am August 31, 2023 12:42pmmelatonin 5 mg oral tablet (14 sources)Start: 08-03-2020 End: 96-90-0764jcme 5 mg by mouth once daily at bedtimeMelatonin Discontinued 5 MG PO Daily at bedtime August 08, 2020 12:00am August 31, 2023 12:42pm24 hr metFORMIN hydrochloride 500 mg extended release oral tablet (20 sources)BiguanideStart: 09-28-2023 End: 47-39-0197peut 1 tablet by mouth every twenty-four hours at mealtime metFORMIN XR (Glucophage-XR) 500 MG 24 hr tablet Indications: Encounter for weight loss counseling Take 1 tablet (500 mg) by mouth in the evening. Take with meals Do not crush, chew, or split. 30 tablet 11 09/28/2023 11/24/2024 Discontinued (Other)take 1 tablet by mouth once daily at dinnermetFORMIN (FORTAMET) 500 MG (OSM) 24 hr tablet Take 1 tablet (500 mg total) by mouth Daily before evening meal. Takes for weight loss Dpikus45 hr mirabegron 50 mg extended release oral tablet (7 sources)beta3-Adrenergic AgonistStart: 12-16-2023 End: 83-64-8740yxjf 1 tablet by mouth every twenty-four hours in the morning mirabegron (MYRBETRIQ) 50 mg tablet extended release 24 hr Indications: OAB (overactive bladder) Take 1 tablet (50 mg total) by mouth in the morning. 30 tablet 2 12/16/2023 02/12/2024 Discontinuedphentermine hydrochloride 37.5 mg oral tablet (20 sources)Sympathomimetic Amine AnorecticStart: 10-26-2023 End: 73-84-1940lzkz 1 tablet by mouth before mealtimephentermine (Adipex-P) 37.5 MG tablet Indications: Encounter for weight management Take 1 tablet (37.5 mg) by mouth in the morning. Take before meals. 90 tablet 03/03/2024 11/24/2024 Discontinued (Other)Sennosides (Senna Lax) 8.6 mg Tablet (14 sources)Start: 08-08-2020 End: 82-00-1300yoza 2 tablets by mouth twice dailySennosides (Senna Lax) 8.6 mg Tablet Discontinued 17.2 MG PO Twice daily August 08, 2020 12:00amJuly 2023 12:44pmStart: 38-96-9849wfeq 2 tablets by mouth twice dailySennosides (Senna Lax) 8.6 mg Tablet Active 17.2 MG PO Twice daily 60 August 08, 2020 12:00amStart: 08-03-2020 End: 25-49-8735savq 2 tablets by mouth twice dailySennosides (Senna Lax) 8.6 mg Tablet Discontinued 2 TAB PO Twice daily 0 August 03, 2020 12:00am August 09, 2020 10:01amsolifenacin succinate 10 mg oral tablet (9 sources)Cholinergic Muscarinic AntagonistStart: 02-12-2024 End: 61-83-3082bapp 1 tablet by mouth in the morningsolifenacin (VESICARE) 10 mg tablet Take 1 tablet (10 mg total) by mouth in the morning. 30 tablet 2 02/12/2024 05/10/2024 DiscontinuedStart: 12-18-2023 End: 22-94-8381qfyd 1 tablet by mouth in the morningsolifenacin (VESICARE) 5 mg tablet Indications: OAB (overactive bladder) Take 1 tablet (5 mg total)by mouth in the morning. 30 tablet 5 12/18/2023 02/12/2024 Discontinuedvibegron (GEMTESA) 75 mg tablet (6 sources)Start: 12-17-2023 End: 81-90-1815qrun 1 tablet by mouth in the morningvibegron (GEMTESA) 75 mg tablet Take 75 mg by mouth in the morning. 30 tablet 5 12/17/2023 02/12/2024 DiscontinuedStart: 43-32-8498hddv 1 tablet by mouth in the morningvibegron (GEMTESA) 75 mg tablet Take 75 mg by mouth in the morning. 30 tablet 5 12/17/2023 Active Problems Active Problems Problem ClassificationProblemDateDocumented DateEpisodic/ChronicAsthma (20 sources)Asthmatic bronchitis; Translations: [Unspecified asthma, uncomplicated]Onset: 046111-27-4643VymplydCjapfjgoa and vision defects (7 sources)Visual impairment; Translations: [Unspecified visual loss]03-11-2024 ChronicCoagulation and hemorrhagic disorders (2 sources)Coagulation defect, unspecified; Translations: [Coagulation defect, unspecified]Onset: 34-65-1230BnjslnhY Codes: Fall (16 sources)Fall on same level from slipping, tripping or stumbling ; Translations: [Fall on same level from slipping, tripping and stumbling without subsequent striking against object, initial encounter]Onset: 11-24-2024 49-62-3464KzivffwbAfyvdlkyh hypertension (19 sources)Benign essential hypertension; Translations: [Essential (primary) hypertension]Onset: 300329-26-4540MbaszioVjeitavpwywcz symptoms and ill- defined conditions (11 sources)Mixed urinary incontinence; Translations: [Mixed incontinence]Onset: 187896-57-0314NtfzjjmRqwyvkhn (16 sources)Glaucoma; Translations: [Unspecified glaucoma]Onset: 11-10-2023 00-27-0852ZuuyrawDlcwystfkbivuj (20 sources)Unilateral primary osteoarthritis, left hip; Translations: [Localized, primary osteoarthritis of the pelvic region and thigh]Onset: 68-01-7906MancphpDqfrd aftercare (2 sources)Follow-up status; Translations: [Encounter for follow-up examination after completed treatment for conditions other than malignant neoplasm] 74-94-8199FlgejovxQffqo aftercare (1 source)Postoperative visit; Translations: [Encounter for other specified surgical aftercare]40-79-8849LjfyvfqhYgowe connective tissue disease (20 sources)History of total knee arthroplasty; Translations: [Presence of unspecified artificial knee joint]Onset: 426235-72-2087TpocbisOdpmx connective tissue disease (19 sources)History of total hip arthroplasty; Translations: [Presence of left artificial hip joint]Onset: 740116-93-8650PpgmsnnOdmba connective tissue disease (2 sources)Presence of right artificial shoulder joint; Translations: [Presence of right artificial shoulder joint]Onset: 53-79-2401QwduaecNiiuc connective tissue disease (4 sources)Pain in right foot; Translations: [PAIN IN RIGHT FOOT]Onset: 04-75-3199LzvntshzCvyxj connective tissue disease (6 sources)Tear of right rotator cuff; Translations: [Unspecified rotator cuff tear or rupture of right shoulder, not specified as traumatic]74-34-5077Llsjqyxy Other connective tissue disease (16 sources)Unspecified rotator cuff tear or rupture of right shoulder, not specified as traumatic; Translations: [Rotator cuff (capsule) sprain]Onset: 072726-20-9999JjpjsoozRdtty connective tissue disease (2 sources)Supraspinatus tear; Translations: [Unspecified rotator cuff tear or rupture of right shoulder, not specified as traumatic]10-39-3390HcushhfnSyoky connective tissue disease (9 sources)Rotator cuff arthropathy of right shoulder; Translations: [Unspecified rotator cuff tear or ruptureof right shoulder, not specified as traumatic]Onset: 879234-05-2854HunmespkDhnqm diseases of bladder and urethra (7 sources)Overactive bladder; Translations: [Overactive bladder]02-12-2024 ChronicOther diseases of bladder and urethra (1 source)Overactive bladder; Translations: [Overactive bladder]Onset: 77-44-6648HwzxxryOeytl injuries and conditions due to external causes (9 sources)Other specified injuries of thorax, initial encounter; Translations: [Contusion of chest wall]Onset: 896032-62-7916FihnjmfpOlehv nervous system disorders (1 source)Chronic pain syndrome; Translations: [CHRONIC PAIN SYNDROME]Onset: 72-61-3199PyqzvtvEnuzk nervous system disorders (19 sources)Difficulty walking; Translations: [Difficulty in walking, not elsewhere classified]Onset: 099586-95-1299JvrdrjyObroz non-traumatic joint disorders (6 sources)Derangement of right shoulder joint; Translations: [Other specific joint derangements of right shoulder, not elsewhere classified]10-49-0823Bjaapmc Other non-traumatic joint disorders (12 sources)Other specific joint derangements of right shoulder, not elsewhere classified; Translations: [Otherspecified disorders of joint, shoulder region] Onset: 611244-66-2343BgkmuduPpjaw non-traumatic joint disorders (2 sources)Other specific arthropathies, not elsewhere classified, right shoulder; Translations: [Other specific arthropathies, not elsewhere classified, right shoulder]Onset: 36-87-7167LfttlsuTtptn non-traumatic joint disorders (4 sources)Pain in left hip; Translations: [PAIN IN LEFT HIP]Onset: 01-23-2022 EpisodicOther non-traumatic joint disorders (1 source)Pain in left knee; Translations: [PAIN IN LEFT KNEE]Onset: 01-28-2022 EpisodicOther non-traumatic joint disorders (17 sources)Pain in right shoulder; Translations: [Acute pain of right shoulder] Onset: 561300-72-0099DmftcgquGkjhb non-traumatic joint disorders (6 sources)Hip pain; Translations: [Pain in right hip]54-30-7189TxcldopoPytoe non-traumatic joint disorders (11 sources)Pain in right hip; Translations: [Pain in joint, pelvic region and thigh]84-99-8126TxfmxisvLtqlh nutritional; endocrine; and metabolic disorders (20 sources)Obesity; Translations: [Obesity, unspecified]Onset: 08-11-2023 43-79-3820ClxaaoeAblxf nutritional; endocrine; and metabolic disorders (2 sources)Obesity, unspecified; Translations: [Obesity, unspecified classification, unspecified obesity type,unspecified whether serious comorbidity present E66.9]Onset: 11-16-2020 Resolved: 89-55-8969IoalvquJzfpz nutritional; endocrine; and metabolic disorders (19 sources)Obesity caused by energy imbalance; Translations: [Morbid (severe) obesity due to excess calories]Onset: 455788-07-1640BisfqknBojbu nutritional; endocrine; and metabolic disorders (19 sources)Body mass index 40+ - severely obese; Translations: [Body mass index (BMI) 40.0-44.9, adult]Onset: 966670-08-1970PhkehnrMgynobkw of female genital organs (7 sources)Cystocele; Translations: [Cystocele, unspecified]Onset: 12-16-2023 89-41-2878DtqjqbqIfgfavd and strains (4 sources)Rupture of infraspinatus tendon; Translations: [Strain of other muscles, fascia and tendons at shoulder and upper arm level, right arm, initial encounter]56-87-9189YlujrvqvJctcamxpu-related disorders (20 sources)Nicotine dependence; Translations: [Nicotine dependence, unspecified, uncomplicated]Onset: 591590-86-8518GhnxnfkYujgocnaxhc injury; contusion (20 sources)Contusion of right front wall of thorax, initial encounter; Translations: [Contusion of rib on right side]Onset: EpisodicUnclassified (4 sources)CONTACT W/AND (SUSP) EXPOS COVID-19; Translations: [CONTACT W/AND (SUSP) EXPOS COVID-19]Onset: 69-61-5251Tpxfaqyyfjsc (1 source)BREAST LESION RIGHTOnset: 60-95-6496Wzijkbvxnfxk (1 source)Post-opOnset: 89-66-5990Noqnxmloxzwc (1 source)Vaginal ProlapseOnset: 73-24-1359Ocgedilpgowq (1 source)ProcedureOnset: 65-68-1343Sgrpipwkinsq (1 source)New PatientOnset: 49-05-9738Rutfpkt tract infections (1 source)Acute cystitis; Translations: [Acute cystitis without hematuria] 18-58-5757Wzkjialy Past or Other Problems Problem ClassificationProblemDateDocumented DateEpisodic/ChronicAbdominal pain (1 source)Unspecified abdominal pain; Translations: [UNSPECIFIED ABDOMINAL PAIN] Onset: 56-66-0072YafhxommOzvwt posthemorrhagic anemia (20 sources)Anemia following acute postoperative blood loss; Translations: [Acute posthemorrhagic anemia]Onset: 272854-03-1992Xzumiiuf Administrative/social admission (20 sources)Other reduced mobility; Translations: [Impaired mobility and activities of daily living]Onset: 217724-78-9724AwlispgvPujdcwux reactions (20 sources)Hand eczema; Translations: [Dermatitis, unspecified]Onset: 08-11-2023 Resolved: 931524-39-0929LozgybxoAiftavnqcdbr of device; implant or graft (2 sources)Other mechanical complication of other internal orthopedic devices, implants and grafts, initial encounter; Translations: [Failed orthopedic implant, initial encounter T84.498A]Onset: 11-16-2020 Resolved: 48-41-7970HvrdprzgRrger and electrolyte disorders (20 sources)Hyponatremia; Translations: [Hypo-osmolality and hyponatremia]Onset: 317570-54-0991ZzgetnqsXjayubut of lower limb (20 sources)Closed fracture of femur, distal end; Translations: [Other fracture of lower end of right femur, subsequent encounter for closed fracture with delayed healing]Onset: 11-16-2020 Resolved: 68-29-7222VkbhnqssPfgx disorders (9 sources)Mood disordersOnset: 979621-29-4614Qcgqtmrqxvsw breast conditions (18 sources)Lesion of breast; Translations: [Disorder of breast, unspecified] Onset: 982701-41-0300UrkchuxdXcufd connective tissue disease (1 source)Trochanteric bursitis, left hip; Translations: [TROCHANTERIC BURSITIS LEFT HIP]Onset: 87-65-8468IenxlepjVtedl connective tissue disease (1 source)Pain in right leg; Translations: [PAIN IN RIGHT LEG]Onset: 03-29-2021 EpisodicOther connective tissue disease (20 sources)Pain in right lower limb; Translations: [Pain in right leg]Onset: 484901-10-7445UdwwtymnGuddt hematologic conditions (20 sources)ESR raised; Translations: [Elevated erythrocyte sedimentation rate] Onset: 08-06-2023 Resolved: 241615-98-3011UxdymmyzGsbbf injuries and conditions due to external causes (20 sources)History of fall; Translations: [History of falling]Onset: 08-11-2023 90-73-2752AnfhqfgsVdfod nervous system disorders (20 sources)Postoperative pain ; Translations: [Other acute postprocedural pain] Onset: 696713-51-6979ZaoufwrcFolxz nervous system disorders (1 source)Other acute postprocedural pain; Translations: [Other acute postprocedural pain]Onset: 97-62-7744BkyaeapeHsyec screening for suspected conditions (not mental disorders or infectious disease) (20 sources)Protein level - finding; Translations: [Other specified abnormal findings of blood chemistry]Onset: 879445-32-3113FpoomaajUeyuljcu codes; unclassified (2 sources)Tobacco use; Translations: [Nicotine abuse Z72.0]Onset: 11-16-2020 Resolved: 50-89-3278KtojcawaPuicacos codes; unclassified (3 sources)Other specified postprocedural states; Translations: [Other specified postprocedural states Z98.890]Onset: 11-16-2020 Resolved: 10-56-5775GzatbkmnPlcamdzd codes; unclassified (20 sources)Patient encounter status; Translations: [Encounter for prophylactic measures, unspecified]Onset: 351888-08-9197KurjbbubDokomole codes; unclassified (19 sources)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 The patient was examined and there are no changes to the H&P. Dr. Leo GUTIERREZSEtrenton Edge Worker orthopedic surgery Adult Reconstruction and Trauma [facility] CenterHP H&P reviewed. The patient was examined and there are no changes to the H&P. Dr. Leo GUTIERREZSEtrenton Edge Worker orthopedic surgery Adult Reconstruction and Trauma [facility] OPNOTEon 93-81-6709PBDOCDWNVFLAQ TOTAL SHOULDER ARTHROPLASTY (R) Operative Note Date: 12/12/2024 Location: [facility] OR Name: Keila Richardson, : [...] [M81.0] * Class 3 obesity (CMS/HCC) [E66.813] Procedures REVERSE TOTAL SHOULDER ARTHROPLASTY 84260 - PA ARTHROPLASTY GLENOHUMERAL JOINT TOTAL SHOULDER Reverse Total [...] the proximal humeral shaft metaphysis. Surgeons Primary: Leo Ortega MD Resident - Assisting: Jose Antonio [...] Serial No. Total Joint BASEPLATE,COMP RVS,25MM - [id number] Implanted Total Joint GLENOID,36M,COMP,SHLDR,STD - [id number] Implanted Screw SCREW,6.5M,COMP,CNTRL,ST/RST,3 - [id number] Implanted Screw SCREW,3.5M, NON LCK,HEX4.75X35 - [id number] Implanted Screw SCREW,3.5M,LCK,HEX4.75X20,ST - [id number] Implanted Screw SCREW,3.5M,LCK,HEX4.75X20,ST - [id number] Implanted Screw SCREW,3.5M, NON LCK,HEX4.75X35 - [id number] Implanted Total Joint MINI HUMERAL STEM Implanted Total Joint CUP,HUMERAL,36M - [id number] Implanted Plate TRAY,HUMERAL,40X+3MM - [id number] Implanted Staff: Copywriter: Richard Langford RN Relief Copywriter: Hallie Bowen RN Relief Scrub: Monique Fabian [...] of R shoulder from September 2023 at [facility] were also reviewed: Near complete rotator cuff tear with proximal migration of humerus. This was reviewed on the CD which show the patient has MRI scan from outside incision which shows the patient has complete tear of the supraspinatus as well as fluid around the rotator cuff as well as the biceps tendon sheath suggestive of comp (more content not included)...NormalUnLouis Stokes Cleveland VA Medical CenterPOCT GLUCOSE METER UNSOLICITED RESULTSon 33-64-8398Urqnfuw [Mass/Vol]86 mg/dLNormal 70-105UnLouis Stokes Cleveland VA Medical CenterComment on above:Order Comment: Waived Testing in the ED is performed under the ED CLIA certificate #[id number].Result Comment: miwardPerformed By: #### [id number] #### [facility] ([facility]) [address] [place] [address]JYSFzb 73-42-3624OWVBHYCUS PARTIAL THROMBOPLASTIN TIME IN PPP BY COAGULATION ASSAY31.6 RaeznamRrqidi07.0-35.0Un[facility] Comment on above:Result Comment: Clinical significance of the APTT is questionable in the presence of heparin.Performed By: #### [id number] #### [facility] ([facility]) [address] [place] [address]VMX WITH AUTO DIFFERENTIALon 90-43-8517Ahwerirsp (Bld) [#/Vol] 0.03 10*3/uLNormal0.00-0.20UnLouis Stokes Cleveland VA Medical CenterComment on above: Performed By: #### [id number] #### [facility] ([facility]) [address] [place] [address]Jzxhtvjmh/100 WBC (Bld)0.3 %Normal0.0-1.0UnLouis Stokes Cleveland VA Medical CenterComment on above:Performed By: #### [id number] #### [facility] ([facility]) [address] [place] [address]Lrawriogkli (Bld) [#/Vol]0.09 10*3/uLNormal0.00-0.50UnLouis Stokes Cleveland VA Medical CenterComment on above:Performed By: #### [id number] #### [facility] ([facility]) [address] [place] [address]Mnsbbexgqht/100 WBC (Bld)1.0 %Normal0.0-6.0UnLouis Stokes Cleveland VA Medical CenterComment on above:Performed By: #### [id number] #### [facility] ([facility]) [address] [place] [address]Wskpsrkoujl distribution width (RBC) [Ratio]12.9 %Normal 11.5-15.0UnLouis Stokes Cleveland VA Medical CenterComment on above:Performed By: #### [id number] #### [facility] ([facility]) [address] [place] [address]TVWEQGSEGAU MEAN CORPUSCULAR HEMOGLOBIN CONCENTRATION (G/DL) BY BOXFTQULO32.4 g/lCQviajp60.0-35.0UnLouis Stokes Cleveland VA Medical CenterComment on above:Performed By: #### [id number] #### [facility] ([facility]) [address] [place] [address]Ycimfhhrnr (Bld) [Volume fraction]41.6 %Nhgszi34.0-45.0 [facility] CenterComment on above:Performed By: #### [id number] #### [facility] ([facility]) [address], [place] [address]Keftewgiog (Bld) [Mass/Vol]13.9 g/pTMqgwwy77.0-15.0UnLouis Stokes Cleveland VA Medical CenterComment on above:Performed By: #### [id number] #### [facility] ([facility]) [address] [place], [place] [address]Nmbpkgfn granulocytes (Bld) [#/Vol]0.01 10*3/uLNormal0.00-0.20 [facility] CenterComment on above:Performed By: #### [id number] #### [facility] ([facility]) [address] [place], [place] [address]Ihoafave granulocytes/100 WBC (Bld)0.1 %Normal0.0-1.0UnLouis Stokes Cleveland VA Medical CenterComment on above:Performed By: #### [id number] #### [facility] ([facility]) [address] [place], [place] [address]Ivyofglriss (Bld) [#/Vol]2.54 10*3/uLNormal1.20-4.00UnLouis Stokes Cleveland VA Medical CenterComment on above:Performed By: #### [id number] #### [facility] ([facility]) [address] [place], [place] [address]Zmmmhgjobiz/100 WBC (Bld)28.4 %Xyeuse14.0-45.0UnLouis Stokes Cleveland VA Medical CenterComment on above:Performed By: #### [id number] #### [facility] ([facility]) [address] [place] [address]BFB (RBC) [Entitic mass]29.6 fsIhtlzb65.0-33.0UnLouis Stokes Cleveland VA Medical CenterComment on above:Performed By: #### [id number] #### [facility] ([facility]) [address] [facility] [place], [place] [address]UTJ (RBC) [Entitic vol]88.5 pSGsasgw51.0-98.0UnLouis Stokes Cleveland VA Medical CenterComment on above:Performed By: #### [id number] #### [facility] ([facility]) [address] [facility] [place], [place] [address]Ogssvrdad (Bld) [#/Vol]0.61 10*3/uLNormal0.10-1.00UnLouis Stokes Cleveland VA Medical CenterComment on above:Performed By: #### [id number] #### [facility] ([facility]) [address] [place], [place] [address]Obbizuviy/100 WBC (Bld)6.8 %Normal5.0-12.0UnLouis Stokes Cleveland VA Medical CenterComment on above:Performed By: #### [id number] #### [facility] ([facility]) [address] [facility] [place] [address]Fqwpcszsvee (Bld) [#/Vol]5.66 10*3/uLNormal1.60-7.60UnLouis Stokes Cleveland VA Medical CenterComment on above:Performed By: #### [id number] #### [facility] ([facility]) [address] [place], [place] [address]Evqggxenfch/100 WBC (Bld)63.4 %Ikvvhv84.0-72.0UnLouis Stokes Cleveland VA Medical CenterComment on above:Performed By: #### [id number] #### [facility] ([facility]) [address] [address]WKSB (PER 100 WBCS) BY AUTOMATED COUNT0.0 %Uqdfgg1MuufstyhsyLouis Stokes Cleveland VA Medical CenterComment on above:Performed By: #### [id number] #### [facility] ([facility]) [address] [address]LUTVLMDBJ (10*3/UL) IN BLOOD AUTOMATED [id number] 10*3/uLHigh 150-400UnLouis Stokes Cleveland VA Medical CenterComment on above:Performed By: #### [id number] #### [facility] ([facility]) [address] [address]BHP (Bld) [#/Vol]4.70 10*6/uLNormal3.80-5.00UnLouis Stokes [facility] VA Medical CenterComment on above:Performed By: #### [id number] #### [facility] ([facility]) [address] [address]BEE (Bld) [#/Vol]8.94 10*3/uLNormal4.00-10.60UnLouis Stokes Cleveland VA Medical CenterComment on above:Performed By: #### [id number] #### [facility] ([facility]) [address] [address]UWLNAYIEYHFNZ METABOLIC PANELon 18-27-1507Gktjpwj [Mass/Vol]4.1 g/dLNormal3.5-5.7UnLouis Stokes Cleveland VA Medical CenterComment on above:Performed By: #### [id number] #### [facility] ([facility]) [address] [place] [address]PMK [Catalytic activity/Vol]75 U/FZlomqp56-246WbauhtxyzeLouis Stokes Cleveland VA Medical CenterComment on above:Performed By: #### [id number] #### [facility] ([facility]) [address] [place], [place] [address]NWO [Catalytic activity/Vol]29 U/LNormal7-52UnLouis Stokes Cleveland VA Medical CenterComment on above:Performed By: #### [id number] #### [facility] ([facility]) [address] [place], [place] [address]Qxihp gap [Moles/Vol]13 mmol/LNormal7-20UnLouis Stokes Cleveland VA Medical CenterComment on above:Performed By: #### [id number] #### [facility] ([facility]) [address] [place], [place] [address]OJG [Catalytic activity/Vol]32 U/CLaevsp79-48WqpzpqqdvcLouis Stokes Cleveland VA Medical CenterComment on above:Performed By: #### [id number] #### [facility] ([facility]) [address] [place], [place] [address]Depzjmucz [Mass/Vol]0.6 mg/dLNormal0.3-1.0UnLouis Stokes Cleveland VA Medical CenterComment on above:Performed By: #### [id number] #### [facility] ([facility]) [address] [place], [place] [address]Sdnmnmw [Mass/Vol]9.5 mg/dLNormal8.6-10.3UnLouis Stokes Cleveland VA Medical CenterComment on above:Performed By: #### [id number] #### [facility] ([facility]) [address] [place], [place] [address]Vxbtzkpl [Moles/Vol]104 mmol/LPafyzv48-972BpfujtisyeLouis Stokes Cleveland VA Medical CenterComment on above:Performed By: #### [id number] #### [facility] ([facility]) [address] [place], [place] [address]YL3 [Moles/Vol]27 mmol/KRwzivx87-67QsvjzmzmgaLouis Stokes Cleveland VA Medical CenterComment on above:Performed By: #### [id number] #### [facility] ([facility]) [address] [place], [place] [address]Xmdbqrozbm [Mass/Vol]0.73 mg/dLNormal0.60-1.20UnLouis Stokes [facility] VA Medical CenterComment on above:Performed By: #### [id number] #### [facility] [address] [place], [place] [address]QVEIVCQRWO FILTRATION RATE ML/MIN/1.73 SQ M.UZMMGXCKO50.3 mL/min/1.73m*2Normal>60.0UnLouis Stokes Cleveland VA Medical CenterComment on above: Result Comment: [facility]???s estimated glomerular filtration rate (eGFR) [...] potential consequences that do not disproportionately affect anyone group of individuals.Performed By: #### [id number] #### [facility] ([facility]) [address] [place], [place] [address]Unpmjsu [Mass/Vol]92 mg/gOMqrfoe92-689AbrpxbwegyLouis Stokes Cleveland VA Medical CenterComment on above:Performed By: #### [id number] #### [facility] ([facility]) [address] [place], [place] [address]Ijkadrafx [Moles/Vol]3.8 mmol/LNormal3.5-5.1UnLouis Stokes Cleveland VA Medical CenterComment on above:Performed By: #### [id number] #### [facility] ([facility]) [address] [place], [place] [address]Ktyxwgp [Mass/Vol]7.6 g/dLNormal6.0-8.3UnLouis Stokes Cleveland VA Medical CenterComment on above:Performed By: #### [id number] #### [facility] ([facility]) [address] [place], [place] [address]Vcwtku [Moles/Vol]140 mmol/IUgjyvx486-401BmpxgslbtcLouis Stokes Cleveland VA Medical CenterComment on above:Performed By: #### [id number] #### [facility] ([facility]) [address] [place], [place] [address]Ditq nitrogen [Mass/Vol]11 mg/dLNormal7-25UnLouis Stokes [facility] Medical CenterComment on above:Performed By: #### [id number] #### [facility] ([facility]) [address] [place], [place] [address]BOJA NITROGEN/CREATININE (MASS RATIO) IN SER/PLAS15.1Normal [facility] CenterComment on above:Performed By: #### [id number] #### [facility] ([facility]) [address] [place] [address]Rkqsmxaag [id number] Keila Richardson 1970 F Date Provider Department Center 12/07/2024 LEO MARSHALL MP ORTHO MPORTHO No family history on file Level of Service:48803 PA OFFICE/OUTPATIENT ESTABLISHED HIGH MDM 40 MIN (GC) Reason for Visit and Comments: Pain [136] Pain [136]NormalUnLouis Stokes Cleveland VA Medical CenterHPon 12-57-2755RI Orthopaedic Surgery Subjective 12/07/24 Keila Richardson is [...] this visit. Body mass index is 38.35 kg/m???. Physical Exam Constitutional: General: She is not [...] of R shoulder from September 2023 at [facility] were also reviewed: Near complete rotator cuff tear with proximal migration of humerus. This was reviewed on the CD which show the patient has MRI scan from outside incision which shows the patient has complete tear of the supraspinatus as well as fluid around the rotator cuff as well as the biceps tendon sheath suggestive of complete tear of the rotator cuff along with rotator cuff tear arthropathy [...] shoulder and she wishes to pursue shoulder repla (more content not included)...NormalUnLouis Stokes Cleveland VA Medical CenterLab on [id number] Keila Richardson 1970 F Date Provider Department Center 12/07/2024 224-[facility] MP LAB RESOURCE MP DRAW Medical Pavi No family history on fileNormalUniParkview Health Montpelier HospitalMRSA/MSSA DNA NASALon 69-81-1862CIMG DNANegativeNormalNegativeUnLouis Stokes Cleveland VA Medical CenterComment on above:Order Comment: Testing methodology is an automated qualitative in [...] A negative result does not preclude nasal colonization.Performed By: #### [id number] #### [facility] ([facility]) [address] [place], [place] [address]ZRTN DNANegativeNormalNegativeUnLouis Stokes Cleveland VA Medical CenterComment on above:Order Comment: Testing methodology is an automated qualitative in [...] A negative result does not preclude nasal colonization.Performed By: #### [id number] #### [facility] ([facility]) [address] [place], [place] [address]VOKVBEN-KNOda 28-15-8958BOR IN PPP BY COAGULATION ASSAY1.01 Normal0.90-1.10UnLouis Stokes Cleveland VA Medical CenterComment on above:Result Comment: [facility] RECOMMENDED INR FOR WARFARIN THERAPY CONDITION INR PROPHYLAXIS OF VENOUS THROMBOSIS 2-3 (HIGH-RISK SURGERY) TREATMENT OF VENOUS THROMBOSIS 2-3 TREATMENT OF PULMONARY EMBOLISM 2-3 PREVENTION OF SYSTEMIC EMBOLISM: 2-3 ACUTE MYOCARDIAL INFARCTION TISSUE HEART VALVES VALVULAR HEART DISEASE ATRIAL FIBRILLATION RECURRENT SYSTEMIC EMBOLISM MECHANICAL HEART VALVE 2.5-3.5 FROM: ORAL ANTICOAGULANTS. MECHANISM OF ACTION, CLINICAL EFFECTIVENESS, AND OPTIMAL THERAPEUTIC RANGE. CHEST 1995;108:231S-246S.Performed By: #### [id number] ####[facility] Invision.comARGELIA)[address] [place], [place] [address]FZHEIHDHJGA TIME (PT) IN PPP BY COAGULATION ASSAY13.3 KxwmtmsYevuhy93.3-14.8UnLouis Stokes Cleveland VA Medical CenterComment on above:Performed By: #### [id number] ####[facility] ([place])[address] [place], [place] [address]IUGQ AND SCREENon 45-88-3790SI SCREEN NegativeNormalUniversity Ohio State East HospitalComment on above:Performed By: #### [id number] #### [facility] BLOOD BANK ,ABO group Nom (Bld)ONselect specialty hospital - winston-salemUnLouis Stokes Cleveland VA Medical CenterComment on above: Performed By: #### [id number] #### [facility] BLOOD BANK ,RH TYPE IN BLOODPositiveNormalUniversOhioHealth Southeastern Medical CenterComment on above:Performed By: #### [id number] #### [facility] BLOOD [facility] ,URINALYSIS MICROSCOPIC WITH REFLEX CULTUREon 83-39-1387ZPIHT (#/LPF) IN URINE SEDIMENTFewNormalNone Seen, Occasional, FewAshtabula County Medical Center Comment on above:Performed By: #### [id number] ####[facility] ([facility])[address] [place], [place] [address]SOK (#/HPF) IN URINE SEDIMENT0-2NormalNone Seen, 0-2UnLouis Stokes Cleveland VA Medical CenterComment on above:Performed By: #### [id number] ####[facility] ([facility])[address] [place], [place] [address]ZAWLUPAA EPITHELIAL CELLS (#/LPF) IN URINE SEDIMENTManyAbnormalNone Seen, Occasional, FewUnLouis Stokes Cleveland VA Medical CenterComment on above:Performed By: #### [id number] ####[facility] ([facility])[address] [place], [place] [address]UMH (LEUKOCYTE) (#/HPF) IN URINE SEDIMENT>50AbnormalNone Seen, 0-2UnLouis Stokes Cleveland VA Medical CenterComment on above:Performed By: #### [id number] ####[facility] ([facility])[address], [place] [address]JCSDHIJVGD WITH REFLEX CULTUREon 29-74-6135NQNFMNTZY, TOTAL PRESENCE IN URINENegativeNormalNegative [facility] CenterComment on above:Performed By: #### [id number] #### [facility] ([facility]) [address] [place], [place] [address]Ehabfho (U)CloudyAbnormalClearUnLouis Stokes Cleveland VA Medical CenterComment on above:Performed By: #### [id number] #### [facility] ([facility]) [address] [place], [place] [address]Nubhx (U)Light-YellowNormalColorless, Yellow, Light-Yellow [facility] CenterComment on above:Performed By: #### [id number] #### [facility] ([facility]) [address] [facility] [place] [address]YOYBZNR (MG/DL) IN URINENormalNormalNormalUniversOhioHealth Southeastern Medical CenterComment on above:Performed By: #### [id number] #### [facility] ([facility]) [address] [place], [place] [address]MGCSIYDQHJ PRESENCE IN URINENegativeNormalNegativeUnLouis Stokes Cleveland VA Medical CenterComment on above:Performed By: #### [id number] #### [facility] ([facility]) [address] [place], [place] [address]Prtlioe Ql (U)NegativeNormalNegativeUnLouis Stokes Cleveland VA Medical CenterComment on above:Performed By: #### [id number] #### [facility] ([facility]) [address] [place], [place] [address]AFCCMQPIB ESTERASE PRESENCE IN URINE BY TEST STRIPLargeAbnormal NegativeUnLouis Stokes Cleveland VA Medical CenterComment on above:Performed By: #### [id number] #### [facility] ([facility]) [address] [place], [place] [address]ODWJMKU PRESENCE IN URINEPositiveAbnormalNegativeUnLouis Stokes Cleveland VA Medical CenterComment on above:Performed By: #### [id number] #### [facility] ([facility]) [address] [facility], [place] [address]nV (U)5.5 [pH]Normal5.0-8.0UnLouis Stokes Cleveland VA Medical Center Comment on above:Performed By: #### [id number] #### [facility] ([facility]) [address] [facility], [place] [address]Ztrvncw (U) [Mass/Vol]NegativeNormalNegativeUnLouis Stokes Cleveland VA Medical CenterComment on above:Performed By: #### [id number] #### [facility] ([facility]) [address] [facility] [place], [place] [address]Pfjzdskn gravity (U) [Rel density]1.615Apqcek8.010-1.030 [facility] Medical CenterComment on above:Performed By: #### [id number] #### [facility] ([facility]) [address] [place] [address]DYFVQVGWXOJT (MG/DL) IN URINENormalNormalNormalUniversity of Dallas Medical CenterComment on above:Performed By: #### [id number] #### [facility] ([facility]) [address] [place], [place] [address]VACQF CULTURE, ROUTINEon 84-44-3407jyQXPdvhp [Susc]Resistant [facility] Medical CenterComment on above:Order Comment: Cefepime (when cefepime KAIDEN value is <=2 ug/ml) and meropenem (when cefepime is KAIDEN >=4 ug/ml and meropenem KAIDEN value is susceptible) are the preferred therapies for this organism due to moderate-high risk of AmpC beta-lactam production. Fluoroquinolones and trimethoprim-sulfamethoxazole may be considered as alternative intravenous or oral therapy options.Performed By: #### [id number] ####[facility] ([facility])[address] [place], [place] [address]Cxzxdspl [Susc] <=1SusceptibleUnLouis Stokes Cleveland VA Medical CenterComment on above:Order Comment: Cefepime (when cefepime KAIDEN value is <=2 ug/ml) and meropenem (when cefepime is KAIDEN >=4 ug/ml and meropenem KAIDEN value is susceptible) are the preferred therapies for this organism due to moderate-high risk of AmpC beta-lactam production. Fluoroquinolones and trimethoprim-sulfamethoxazole may be considered as alternative intravenous or oral therapy options.Performed By: #### [id number] ####[facility] ([facility])[address] [place], [place] [address]Muhhjgxzcwbys [Susc]<=0.25SusceptibleUnLouis Stokes Cleveland VA Medical CenterComment on above:Order Comment: Cefepime (when cefepime KAIDEN value is <=2 ug/ml) and meropenem (when cefepime is KAIDEN >=4 ug/ml and meropenem KAIDEN value is susceptible) are the preferred therapies for this organism due to moderate-high risk of AmpC beta- lactam production. Fluoroquinolones and trimethoprim-sulfamethoxazole may be considered as alternative intravenous or oral therapy options.Performed By: #### [id number] ####[facility] ([facility])[address] [place] [address] levoFLOXacin [Susc]<=0.5SusceptibleUnLouis Stokes Cleveland VA Medical CenterComment on above:Order Comment: Cefepime (when cefepime KAIDEN value is <=2 ug/ml) and meropenem (when cefepime is KAIDEN >=4 ug/ml and meropenem KAIDEN value is susceptible) are the preferred therapies for this organism due to moderate-high risk of AmpC beta-lactam production. Fluoroquinolones and trimethoprim-sulfame thoxazole may be considered as alternative intravenous or oral therapy options. Performed By: #### [id number] ####[facility] ([facility])[address] [place], [place] [address]Yiuyfyvwy [Susc]<=0.5SusceptibleUnLouis Stokes Cleveland VA Medical CenterComment on above:Order Comment: Cefepime (when cefepime KAIDEN value is <=2 ug/ml) and meropenem (when cefepime is KAIDEN >=4 ug/ml and meropenem KAIDEN value is susceptible) are the preferred therapies for this organism due to moderate-high risk of AmpC beta-lactam production. Fluoroquinolones and trimethoprim-sulfame thoxazole may be considered as alternative intravenous or oral therapy options. Performed By: #### [id number] ####[facility] ([facility])[address] [place], [place] [address]Upxmlvs comment (Unsp spec) [Interp]CEFENormalUniParkview Health Montpelier HospitalComment on above:Order Comment: Cefepime (when cefepime KAIDEN value is <=2 ug/ml) and meropenem (when cefepime is KAIDEN >=4 ug/ml and meropenem KAIDEN value is susceptible) are the preferred therapies for this organism due to moderate-high risk of AmpC beta-lactam production. Fluoroquinolones and trimethoprim-sulfamethoxazole may be considered as alternative intravenous or oral therapy options.Performed By: #### [id number] ####[facility] ([facility])[address] [place], [place] [address]Yoygrmjvrxhy+Sulfamethoxazole [Susc] <=0.5/9.5SusceptibleUnLouis Stokes Cleveland VA Medical CenterComment on above:Order Comment: Cefepime (when cefepime KAIDEN value is <=2 ug/ml) and meropenem (when cefepime is KAIDEN >=4 ug/ml and meropenem KAIDEN value is susceptible) are the preferred therapies for this organism due to moderate-high risk of AmpC beta- lactam production. Fluoroquinolones and trimethoprim-sulfamethoxazole may be considered as alternative intravenous or oral therapy options.Performed By: #### [id number] ####[facility] ([facility])[address] [place], [place] [address]kj [id number] shoulder joint repair Auth # [id number] Approved 11-24 through [id number]rkview Health Montpelier Hospital29on [id number] by: TIFFANY MATUTE on: 11/23/2024 12:56 PM Modules accepted: OrdersNormalUniParkview Health Montpelier Hospital36on 11-16-2024 36PATIENT CAME IN FOR APPT TODAYThe [facility]36 Patient schedule 11/16/[address] Ortega to discuss concern about Right Shoulder & left hip.NormalAshtabula County Medical CenterFollow-Upon 01-93-5440Vgmyfe-[id number] Keila Richardson 1970 F Date Provider Department Center 11/16/2024 LEO MARSHALL ORTHO MPORTHO No family history on file Level of Service:56527 PA OFFICE/OUTPATIENT ESTABLISHED HIGH MDM 40 MIN (GC,57,25) Reason for Visit and Comments: Follow-up [489465] Pain [136]NormalAshtabula County Medical CenterHPon 37-65-0211NLJclaiypkwub Surgery Subjective Follow-up of the Left Hip [...] hip joint posterolateral total hip arthroplasty using [place] dual mobility implants on 11/27/21. States that [...] hip arthroplasty. non-tender Hip ROM: Internal Rotation 15??? External Rotation 35??? Flexion 120??? Strength: Hip Flexion 5/5 Hip [...] of the shoulder girdle muscles noted. Severe limitations of the right shoulder range of motion [...] of R shoulder from September 2023 at [facility] were also reviewed: Near complete rotator cuff tear with proximal migration of humerus. This was reviewed on the CD which show the patient has MRI scan from outside incision which shows the patient has complete tear of the supraspinatus as well as fluid around the rotator cuff as well as the bi (more content not included)...Normal [facility]36on 23-88-939128Nhmils patient about xrays for his appointment tomorrow, patient would like to discuss her appointment, she wants ask questions about her shoulder, she wants xrays of her shoulder, and right hip at the appointment. Can you call patient to discuss this with her.NormalAshtabula County Medical CenterTelephoneon [id number] Markeann 1970 F Date Provider Department Center 11/15/2024 803-LUISA PANIAGUA MP ORTHO MPORTHO No family history on fileNormalUniversOhioHealth Southeastern Medical CenterMAMM SCREENING BILATERAL W CADon 32-02-0159MEDH SCREENING BILATERAL W CADMAMM SCREENING BILATERAL W CAD KEILA RICHARDSON 1970 [id number] EXAM: MAMM SCREENING BILATERAL W CAD, 10/05/2024 [...] genetic counseling consultation and possible genetic testing. If patient has not already completed this evaluation, please consider placing a referral to [facility]- [facility]red[facility] Cancer Gen[facility] via [facility] or . For questions regarding this, please call [phone]. The patient was offered information on genetic counseling at the time of exam. Finalized by Robert Morel MD on 10/06/2024 1:32 PM 1 a MAMM 1 YRNormalProMedica Mendocino State Hospital GLUCOSEon 88-98-6711Mrndewb [Mass/Vol]86 mg/yPUqvvry50-44AvnQcktlt Toledo HospitalComment on above:Performed By: #### BEDG #### [facility] ([id number]) [address] [place] [address] VIRSurgical Pathologyon 15-30-4751Hffphfqc PathologyNormal [facility] Children's HospitalComment on above:Result Comment: [facility] CenterUpCity [facility] [address] [place] [address] Surgical Pathology Consultation Patient Name:KEILA RICHARDSONDOB:1970 (Age: 53)Gender:FTaken:03/17/2024Reported:03/24/2024Physician(s):Yari Alan MD ([phone])Copy To: Rec. #:[id number]: #[id number] Final Pathologic Diagnosis Right breast excisional biopsy : Benign breast tissue with focal fibroadenomatoid change adjacent to organizing biopsy site. Comment: There is no evidence of atypia or malignancy. Please note that the entirety of the biopsy specimen has been processed for histologic examination. Report Electronically Signed Out pss/03/24/2024Zachary Santana MD Interpretation performed at [facility], [address] [place] [address], License number: [id number]. Clinical History Breast lesion right. Gross Description Received in formalin labeled GRAHAM right breast excisional biopsy is a 16 g oriented excisional biopsy, received with a short superior suture, a long lateral suture and a double deep suture. Thespecimen is 4.5 cm from superior to inferior, 4.0 cm from medial to lateral and 1.3 cm from anterior to posterior. The specimen is inked as follows: anterior-yellow superior-blue medial-red posterior-black inferior-green lateral-orange The specimen is serially section from superior to inferior into 9 levels. Level three is remarkablefor a biopsy cavity containing a T3 biopsy clip and metallic Magseed. There is an adjacent white possible mass, 0.5 x 0.4 x 0.4 cm. The mass is located: 0.3 cm from the posterior margin 0.6 cm from the anterior margin 1.7 cm from the medial margin 2.2 cm from the lateral margin 1.1 cm from the superior margin 2.8 cm from the inferior margin The surrounding cut surfaces are composed of yellow, lobulated adipose tissue. The specimen is submitted entirely, sequentially from superior to inferior, as follows: A-B- level 1 (superior margin), perpendicularly sectioned C-D- level 2, bisected E-F- level 3, bisected G-H- level 4, bisected I-J- level 5, bisected K-L- level 6, bisected M-N- level 7, bisected O-P- level 8, bisected Q-R- level 9 (inferior margin), perpendicularly sectioned Breast Fixation Time: Time incised: 1040 Time in formalin: 1110 Cold ischemic time: 30 minutes Time in formalin before processin hours (18, ns,I71-5034, m5) [facility]03/17/2024GR Specimen(s) Received Right breast excisional biopsy Fee Codes(s): 1; [address]YNH AND HCTon 06-99-9016Gcjrjmtpzo (Bld) [Volume fraction]43.5 %Normal 35-47ProMedica Bethesda North HospitalComment on above:Performed By: #### #### [facility] ([id number]) [address], [address] [place], [place] [address]Yoortncvsw (Bld) [Mass/Vol]14.5 g/yXYshdco96.7-15.5ProMedica Bethesda North HospitalComment on above:Performed By: #### HH #### [facility] ([id number]) [address], [address] [place], [place] [address]Nprwnovcsp and hematocrit, bloodon 03-00-9412Nzmhhivgvz (Bld) [Volume fraction]43.5 %35 - 47 %[facility] SystemHemoglobin (Bld) [Mass/Vol]14.5 g/dL11.7 - 15.5 g/dLOhioHealth Dublin Methodist Hospitalca [facility] SystemProVeterans Health Administration SystemMAMM POST BX DIAG UNI RTon 35-80-1218NDIB POST BX DIAG UNI RTMAMM POST BX DIAG UNI RT KEILA RICHARDSON 1970 [id number], [id number] EXAM: US LOC BRST US GUID INIT RT, MAMM POST BX DIAG UNI RT, 03/11/2024 11:26 AM CLINICAL INDICATIONS: Lesion of breast; Abnormal finding on breast imaging, Magseed placement priorto surgical excision COMPARISON: Postbiopsy mammogram 11/12/2023 PERFORMING PHYSICIAN: Robert Morel MD PROCEDURE: The risks, benefits, and alternatives of the procedure were explained in detail to the patient and both verbal and written informed consent were obtained. A timeout was performed verifyingthe correct patient, site and procedure. The patient was placed in a supine position on the US table. Preliminary sonographic evaluation confirmed the presence of the previously placed biopsy clip. The skin was prepped and draped in usual sterile fashion. Local anesthesia was obtained using 3mL 1% lidocaine solution. Under ultrasound guidance, a magnetic seed was deployed adjacent to the hydromark biopsy clip. The patient tolerated the procedure well. There were no immediate complications. Post procedure mammogram: A 2D CC and LM mammogram of the right breast was obtained for evaluation of Magseed placement. Images obtained in a separate room and interpreted on a dedicated mammography workstation. The Magseed is located immediately adjacent to the biopsy clip. IMPRESSION: 1. Technically successful ultrasound-guided Magseed placement prior to surgical excision. 2. Post-procedural mammogram for Magseed placement. BIRADS:Post Magseed Finalized by Robert Morel MD on 03/11/2024 12:45 PM [facility] HospitalNoalOhioHealth Dublin Methodist Hospitalca Bethesda North HospitalUS LOC BRST US GUID INIT RTon 01-10-5628WJ LOC BRST US GUID INIT RTUS LOC BRST US GUID INIT RT KEILA RICHARDSON 1970 [id number], [id number] EXAM: US LOC BRST US GUID INIT RT, MAMM POST BX DIAG UNI RT, 03/11/2024 11:26 AM CLINICAL INDICATIONS: Lesion of breast; Abnormal finding on breast imaging, Magseed placement priorto surgical excision COMPARISON: Postbiopsy mammogram 11/12/2023 PERFORMING PHYSICIAN: Robert Morel MD PROCEDURE: The risks, benefits, and alternatives of the procedure were explained in detail to the patient and both verbal and written informed consent were obtained. A timeout was performed verifyingthe correct patient, site and procedure. The patient was placed in a supine position on the US table. Preliminary sonographic evaluation confirmed the presence of the previously placed biopsy clip. The skin was prepped and draped in usual sterile fashion. Local anesthesia was obtained using 3mL 1% lidocaine solution. Under ultrasound guidance, a magnetic seed was deployed adjacent to the hydromark biopsy clip. The patient tolerated the procedure well. There were no immediate complications. Post procedure mammogram: A 2D CC and LM mammogram of the right breast was obtained for evaluation of Magseed placement. Images obtained in a separate room and interpreted on a dedicated mammography workstation. The Magseed is located immediately adjacent to the biopsy clip. IMPRESSION: 1. Technically successful ultrasound-guided Magseed placement prior to surgical excision. 2. Post-procedural mammogram for Magseed placement. BIRADS:Post Magseed Finalized by Robert Morel MD on 03/11/2024 12:45 PM [facility] HospitalNoVan Wert County HospitalMeasure post void residualon 96-70-4437Fymuna 0mlProMediOhioHealth Southeastern Medical Center SystemOhioHealth Nelsonville Health Center SystemPOCT urinalysis dipstick onlyon 11-65-9314Mburobgr Poct Urine BloodNegativeOhioHealth Nelsonville Health Center SystemExternal Poct Urine CharacterclearPKettering Health Hamilton SystemExternal Poct Urine Coloryellow [facility] Health SystemExternal Poct Urine GlucoseNegativeProKettering Health Miamisburgca [facility] SystemExternal Poct Urine KetonesNegativeProVeterans Health Administration SystemExternal Poct Urine Leukocyte EsteraseNegativeOhioHealth Nelsonville Health Center SystemExternal Poct Urine NitriteNegativeOhioHealth Nelsonville Health Center SystemExternal Poct Urine Bm0ZpaOlpkshVeterans Health Administration SystemExternal Poct Urine ProteinNegativeOhioHealth Nelsonville Health Center SystemOhioHealth Nelsonville Health Center SystemLon 47-64-1665XSsdbikgz: [id number] Received: 11/12/23 Status: SOUT Req Num: [id number] Spec Type: Surgical Subm Dr: Elaine Herbert MD Tissues: A BREAST CORE NO CALCS (RT BREAST 9 OCLOCK LESION) Procedures: HE/4, Gross/Micro L4, AE1-AE3, CALPONIN, CK5 6, E CADHERIN Age/ Patient Sex Location Account Attending Physician Keila Richardson 53/F [place] [id number] 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 Differential diagnosis includes fibroadenoma versus phyllodes tumor. Diagnosis is confirmed with E-cadherin, pancytokeratin, calponin and cytokeratin 5/6 immunostain. Clinical Information Right breast NEXT cystic and solid lesion ultrasounded guided core biopsy, right breast 9:00 lesion Gross Description The specimen was received in formalin with the patient's name and right breast 9:00 lesion and consists of multiple, boggs-yellow, hemorrhagic, fatty breast cores ranging in length from 0.6 to 2.1 cm each with an average diameter of 0.3 cm. Specimen is entirely submitted as follows: A1 cores A2 remaining tissue Formalin times: In formalin 1004, 11/12/2023 Out of formalin 1800, 11/12/2023 Specimen: [id number] Received: 11/12/23 Status: DOREEN Lamhudson Num: [id number] Spec Type: Surgical Subm Dr: Elaine Herbert MD Tissues: A BREAST CORE NO CALCS (RT BREAST 9 OCLOCK LESION) Procedures: HE/4, Gross/Micro L4, AE1-AE3, CALPONIN, CK5 6, E CADHERIN Patient: Keila Richardson [id number] (Continued) Specimen: [id number] Received: 11/12/23 (Continued) Gross Description (Continued) Signed (signature on file) Xochitl Sultana MD 11/17/23 1651 Specimen: [id number] Received: 11/12/23 Status: DOREEN Lamhudson Num: [id number] Spec Type: Surgical Subm Dr: Elaine Herbert MD Tissues: A BREAST CORE NO CALCS (RT BREAST 9 OCLOCK LESION) Procedures: HE/4, Gross/Micro L4, AE1-AE3, CALPONIN, CK5 6, E CADHERIN Patient: Keila Richardson [id number] (Continued) Specimen: [id number] Received: 11/12/23 (Continued) Gross Description (Continued) Total fixation time 7 hours and 56 minutes CPT Codes 38240 51092 [id number] Specimen: [id number] Received: 11/12/23 Status: DOREEN Carey Num: [id number] Spec Type: Surgical Subm Dr: Elaine Herbert MD Tissues: A BREAST CORE NO CALCS (RT BREAST 9 OCLOCK LESION) Procedures: HE/4, Gross/Micro L4, AE1-AE3, CALPONIN, CK5 6, E CADHERIN Patient: Keila Richardson [id number] (Continued) Signed (signature on file) Xochitl Sultana MD 11/17/[address] [place] [address] Physician GroupMAMMO POST BIOPSY RIGHTon [id number], [place] [address] Mammography Report Signed Patient: KEILA RICHARDSON MR#: [id number] : 1970 Acct:[id number] Age/Sex: 53 / F ADM Date: 11/12/23 Loc: US Attending Dr: Leah Berger Ordering Physician: Leah Berger Results: Date of Service: 11/12/23 Follow Up: Procedure(s): MM post biopsy RT Accession Number(s): [id number] cc: Leah Berger Patient Name: KEILA RICHARDSON MR#: [id number] : 1970 Exam Date: 11/12/2023 Ordering Doctor: KELVIN Berger . RADIOLOGY REPORT PROCEDURE: MM POST BIOPSY RT COMPARISON: MM DIAGNOSTIC MAMMO UNILAT RT, 11/04/2023. INDICATIONS: Mixed Cystic and Solid Lesion BREAST COMPOSITION: FINDINGS: Post-Procedure Mammogram for Marker Placement BIOPSY MARKER: A metallic marker has been placed in the targeted location within the upper outer quadrant of the right breast. BREAST FINDINGS: The mammographic abnormality corresponds to the mammographic abnormality Dictated by: Elaine Herbert MD on 11/12/2023 at 12:22 Approved by: Elaine Herbert MD on 11/12/2023 at 12:22 Dictated By: Elaine Herbert M.D. Signed By: 11/12/231223 DD/ 22 TD/TT: Theatrical Agent:TBHRadiology, Radiologist, - 11/12/2023 [place] [address] Mammography Report Signed Patient: KEILA RICHARDSON MR#: [id number] : 1970 Acct:[id number] Age/Sex: 53 / F ADM Date: 11/12/23 Loc: Attending Dr: Leah Berger Ordering Physician: Leah Berger Results: Date of Service: 11/12/23 Follow Up: Procedure(s): MM post biopsy RT Accession Number(s): [id number] cc: Leah Berger Patient Name: KEILA RICHARDSON MR#: [id number] : 1970 Exam Date: 11/12/2023 Ordering Doctor: KELVIN Berger . RADIOLOGY REPORT PROCEDURE: MM POST BIOPSY RT COMPARISON: MM DIAGNOSTIC MAMMO UNILAT RT, 11/04/2023. INDICATIONS: Mixed Cystic and Solid Lesion BREAST COMPOSITION: FINDINGS: Post-Procedure Mammogram for Marker Placement BIOPSY MARKER: A metallic marker has been placed in the targeted location within the upper outer quadrant of the right breast. BREAST FINDINGS: The mammographic abnormality corresponds to the mammographic abnormality Dictated by: Elaine Herbert MD on 11/12/2023 at 12:22 Approved by: Elaine Herbert MD on 11/12/2023 at 12:22 Dictated By: Elaine Herbert M.D. Signed By: 11/12/231223 DD/ 22 TD/TT: Theatrical Agent: SERENE HealthcareRadiology Study observation (narrative)NOMS HealthcareMAMMO POST BIOPSY RIGHTOrdered By: Radiologist Radiology on 03-22-7758EGBQ Healthcare Work Phone: US VAC ASST BX BREAST RT W CLIPon [phone] [address] Ultrasound Report Signed Patient: KEILA RICHARDSON MR#: [id number] : 1970 Acct:[id number] Age/Sex: 53 / F ADM Date: 11/12/23 Loc: US Attending Dr: Leah Berger Ordering Physician: Leah Berger Date of Service: 11/12/23 Procedure(s): US breast vac bx w/ clip RT Accession Number(s): [id number] cc: Leah Berger The [address] [id number] Patient Name: KEILA RICHARDSON MRN: [id number] date: 1970 Sex: F Assigned Patient Location: US Current Patient Location: US Accession/Order Number: [id number] Exam Date: 11/12/2023 09:30 Report Date: 11/12/2023 10:32 At the request of: LEAH BERGER Procedure: US breast vac bx w/ clip RT EXAMINATION: US breast vac bx w/ clip RT HISTORY: Mixed Cystic and Solid Lesion COMPARISON: No relevant comparison available. TECHNIQUE: After obtaining informed consent, an ultrasound-guided biopsy was performed in the usual sterile manner. FINDINGS: [...] biopsy. The patient was instructed to obtain follow up care and biopsy results from the referring physician. Electronically authenticated by: ELAINE HERBERT Date: 11/12/2023 10:32 Dictated By: Elaine Herbert M.D. Signed By: 11/12/23 1035 DD/ 1032 TD/TT: Theatrical Agent:TBHRadiology, Radiologist, - 11/12/[address] [address] Ultrasound Report Signed Patient: KEILA RICHARDSON MR#: [id number] : 1970 Acct:[id number] Age/Sex: 53 / F ADM Date: 11/12/23 Loc: US Attending Dr: Leah Berger Ordering Physician: Leah Berger Date of Service: 11/12/23 Procedure(s): US breast vac bx w/ clip RT Accession Number(s): [id number] cc: Leah Berger [place] [address] Patient Name: KEILA RICHARDSON MRN: [id number] date: 1970 Sex: F Assigned Patient Location: US Current Patient Location: US Accession/Order Number: [id number] Exam Date: 11/12/2023 09:30 Report Date: 11/12/2023 10:32 At the request of: LEAH BERGER Procedure: US breast vac bx w/ clip RT EXAMINATION: US breast vac bx w/ clip RT HISTORY: Mixed Cystic and Solid Lesion COMPARISON: No relevant comparison available. TECHNIQUE: After obtaining informed consent, an ultrasound-guided biopsy was performed in the usual sterile manner. FINDINGS: [...] biopsy. The patient was instructed to obtain follow up care and biopsy results from the referring physician. Electronically authenticated by: ELAINE HERBERT Date: 11/12/2023 10:32 Dictated By: Elaine Herbert M.D. Signed By: 11/12/23 1035 DD/ 1032 TD/TT: Theatrical Agent: SERENE HealthcareRadiology Study observation (narrative)SERENE HealthcareUS VAC ASST BX BREAST RT W CLIPOrdered By: Radiologist Radiology on 19-58-5141YAIH [employer] Work Phone: mg Breast - right Diagnosticon 93-91-4969[address] [place], [place] [id number] Mammography Report Signed Patient: KEILA RICHARDSON MR#: [id number] : 1970 Acct:[id number] Age/Sex: 53 / F ADM Date: 11/04/23 Loc: MAMMO Attending Dr: Leah Berger Ordering Physician: Leah Berger Results: Date of Service: 11/04/23 Follow Up: Procedure(s): MM diagnostic mammo unilat RT Accession Number(s): [id number] cc: Leah Berger Patient Name: KEILA RICHARDSON MR#: [id number] : 1970 Exam Date: 11/04/2023 Ordering Doctor: [...] Treatments None Family Cancers None LOCATION: [facility] BREAST COMPOSITION: There are scattered areas of fibroglandular density. FINDINGS: DIAGNOSTIC CATEGORY 4--SUSPICIOUS FOR MALIGNANCY. FINDING DOES NOT EXHIBIT CLASSIC FINDINGS OF BREAST CANCER: RIGHT BREAST: Spot magnification views demonstrate a slightly irregular 7 x 4 x 5 mm mass within the anterior lower-outer quadrant. Ultrasound evaluation demonstrates a mixed cystic and solid irregular mass 6 x 4 x 3 millimeters which is taller than wide and is slightly hyperechoic along its margins. Ultrasound-guided tissue sampling is recommended. RECOMMENDATIONS: ULTRASOUND-GUIDED CORE BIOPSY: RIGHT BREAST PLEASE NOTE: A NORMAL MAMMOGRAM DOES NOT EXCLUDE THE POSSIBILITY OF BREAST CANCER. A CLINICALLY SUSPICIOUS PALPABLE LUMP SHOULD BE BIOPSIED. Dictated by: Patti Thompson M.D. on 11/04/2023 at 11:42 Approved by: Patti Thompson M.D. on 11/04/2023 at 11:50 Dictated By: Patti Thompson M.D. Signed By: 11/04/23 1151 DD/ 1150 TD/TT: Theatrical Agent:TBHRadiology, Radiologist, MD - 11/04/2023 [place] [address] Mammography Report Signed Patient: KEILA RICHARDSON MR#: [id number] : 1970 Acct:[id number] Age/Sex: 53 / F ADM Date: 11/04/23 Loc: MAMMO Attending Dr: Leah Berger Ordering Physician: Leah Berger Results: Date of Service: 11/04/23 Follow Up: Procedure(s): MM diagnostic mammo unilat RT Accession Number(s): [id number] cc: Leah Ab Patient Name: KEILA RICHARDSON MR#: [id number] : 1970 Exam Date: 11/04/2023 Ordering Doctor: [...] Treatments None Family Cancers None LOCATION: [facility] BREAST COMPOSITION: There are scattered areas of fibroglandular density. FINDINGS: DIAGNOSTIC CATEGORY 4--SUSPICIOUS FOR MALIGNANCY. FINDING DOES NOT EXHIBIT CLASSIC FINDINGS OF BREAST CANCER: RIGHT BREAST: Spot magnification views demonstrate a slightly irregular 7 x 4 x 5 mm mass within the anterior lower-outer quadrant. Ultrasound evaluation demonstrates a mixed cystic and solid irregular mass 6 x 4 x 3 millimeters which is taller than wide and is slightly hyperechoic along its margins. Ultrasound-guided tissue sampling is recommended. RECOMMENDATIONS: ULTRASOUND-GUIDED CORE BIOPSY: RIGHT BREAST PLEASE NOTE: A NORMAL MAMMOGRAM DOES NOT EXCLUDE THE POSSIBILITY OF BREAST CANCER. A CLINICALLY SUSPICIOUS PALPABLE LUMP SHOULD BE BIOPSIED. Dictated by: Patti Thompson M.D. on 11/04/2023 at 11:42 Approved by: Patti Thompson M.D. on 11/04/2023 at 11:50 Dictated By: Patti Thompson M.D. Signed By: 11/04/23 1151 DD/ 1150 TD/TT: Theatrical Agent: SERENE TurnerMG Breast - right DiagnosticOrdered By: Radiologist Radiology on 74-13-6208EENB [employer] Work Phone: No Panel Informationon 00-14-4152Rmtuduqvs Study observation (narrative)SERENE Colby Breast - right limitedon 96-04[place], [place] [address] Ultrasound Report Signed Patient: KEILA RICHARDSON MR#: [id number] : 1970 Acct:[id number] Age/Sex: 53 / F ADM Date: 11/04/23 Loc: MAMMO Attending Dr: Leah Berger Ordering Physician: Leah Berger Date of Service: 11/04/23 Procedure(s): US breast RT limited Accession Number(s): [id number] cc: Leah Berger Patient Name: KEILA RICHARDSON MR#: [id number] : 1970 Exam Date: 11/04/2023 Ordering Doctor: [...] Treatments None Family Cancers None LOCATION: [facility] BREAST COMPOSITION: There are scattered areas of fibroglandular density. FINDINGS: DIAGNOSTIC CATEGORY 4--SUSPICIOUS FOR MALIGNANCY. FINDING DOES NOT EXHIBIT CLASSIC FINDINGS OF BREAST CANCER: RIGHT BREAST: Spot magnification views demonstrate a slightly irregular 7 x 4 x 5 mm mass within the anterior lower-outer quadrant. Ultrasound evaluation demonstrates a mixed cystic and solid irregular mass 6 x 4 x 3 millimeters which is taller than wide and is slightly hyperechoic along its margins. Ultrasound-guided tissue sampling is recommended. RECOMMENDATIONS: ULTRASOUND-GUIDED CORE BIOPSY: RIGHT BREAST PLEASE NOTE: A NORMAL MAMMOGRAM DOES NOT EXCLUDE THE POSSIBILITY OF BREAST CANCER. A CLINICALLY SUSPICIOUS PALPABLE LUMP SHOULD BE BIOPSIED. Dictated by: Patti Thompson M.D. on 11/04/2023 at 11:42 Approved by: Patti Thompson M.D. on 11/04/2023 at 11:50 Dictated By: Patti Thompson M.D. Signed By: 11/04/23 1152 DD/ 1150 TD/TT: Theatrical Agent:TBHRadiology, Radiologist, MD - 11/04/2023 [place] [address] Ultrasound Report Signed Patient: KEILA RICHARDSON MR#: [id number] : 1970 Acct:[id number] Age/Sex: 53 / F ADM Date: 11/04/23 Loc: MAMMO Attending Dr: Leah Berger Ordering Physician: Leah Berger Date of Service: 11/04/23 Procedure(s): US breast RT limited Accession Number(s): [id number] cc: Leah Berger Patient Name: KEILA RICHARDSON MR#: [id number] : 1970 Exam Date: 11/04/2023 Ordering Doctor: [...] Treatments None Family Cancers None LOCATION: [facility] BREAST COMPOSITION: There are scattered areas of fibroglandular density. FINDINGS: DIAGNOSTIC CATEGORY 4--SUSPICIOUS FOR MALIGNANCY. FINDING DOES NOT EXHIBIT CLASSIC FINDINGS OF BREAST CANCER: RIGHT BREAST: Spot magnification views demonstrate a slightly irregular 7 x 4 x 5 mm mass within the anterior lower-outer quadrant. Ultrasound evaluation demonstrates a mixed cystic and solid irregular mass 6 x 4 x 3 millimeters which is taller than wide and is slightly hyperechoic along its margins. Ultrasound-guided tissue sampling is recommended. RECOMMENDATIONS: ULTRASOUND-GUIDED CORE BIOPSY: RIGHT BREAST PLEASE NOTE: A NORMAL MAMMOGRAM DOES NOT EXCLUDE THE POSSIBILITY OF BREAST CANCER. A CLINICALLY SUSPICIOUS PALPABLE LUMP SHOULD BE BIOPSIED. Dictated by: Patti Thompson M.D. on 11/04/2023 at 11:42 Approved by: Patti Thompson M.D. on 11/04/2023 at 11:50 Dictated By: Patti Thompson M.D. Signed By: 11/04/23 1152 DD/ 1150 TD/TT: Theatrical Agent: SERENE Colby Breast - right limitedOrdered By: Radiologist Radiology on 80-67-5311YIYM [facility] Work Phone: MR shoulder RT wo conon 21-80-9021VQ shoulder RT wo [facility] [address] [place] [address] MRI Report Signed Patient: Keila Richardson MR#: [id number] : 1970 Acct:[id number] Age/Sex: 53 / F ADM Date: 10/06/23 Loc: [facility] Room: Type: [facility] Attending Dr: Moncho Johnson MD Copies [...] EFFUSION. Impression dictated by: Marin Baires Jr., D.O.10/06/2023 4:14 PM Dictation Location: [place] [address] Transcribed By: [facility] 10/06/23 1614 Dictated By: Marin Baires Jr, DO 10/06/23 1602 Signed By: 10/06/23 1614[facility] Physician GroupIGP,APTIMA HPV,AGE GDLNon 68-23-2783KHF GDLN ACOG TESTINGNote.NOMS HealthcareComment on above:TESTS RESULT FLAG UNITS REF RANGE LAB Clinician Provided Cytology Information Source.............Vagina No. of containers..01 ThinPrep Vial Age Lorettao ACOG Brittni... 30-65 01 FLAG LEGEND: L-Low Normal,H-High Normal,LL-Alert Low,HH-Alert High <-Panic Low,>-Panic High,A-Abnormal,AA-Critical Abnormal Performed at: 01 =[address] [address] Evy Griffin MD, HPV APTIMANegativeNegativeNOMS HealthcareComment on above:This nucleic acid amplification test detects fourteen high- risk HPV types (16,18,31,33,35,39,45,51,52,56,58,59,66,68) without differentiation. Performed at: =[facility] [address] [id number] Route Driver: Evy Griffin MD, Phone: [phone] Performed at: [address] [id number] Route Driver: Evy Griffin MD, Phone: [phone] IGP, APTIMA HPV, RFX 16/18,45Note.NOMS HealthcareComment on above:TESTS RESULT FLAG UNITS REF RANGE LAB DIAGNOSIS: 02 NEGATIVE FOR INTRAEPITHELIAL LESION OR MALIGNANCY. Specimen adequacy: 02 Satisfactory for evaluation. Performed by: Damon Hodge, Radio Host ([facility] [place]) . 02 Note: Note 02 The Pap smear is a screening test designed to aid in the detection of premalignant and malignant conditions of the uterine cervix. It is not a diagnostic procedure and should not be used as the sole means of detecting cervical cancer. Both false-positive and false-negative reports do occur. Test Methodology: Note 02 This liquid based ThinPrep(R) pap test was screened with the use of an image guided system. HPV Genotype Reflex Note 02 Criteria not met, HPV Genotype not performed. FLAG LEGEND: L-Low Normal,H-High Normal,LL-Alert Low,HH-Alert High <-Panic Low,>-Panic High,A-Abnormal,AA-Critical Abnormal Performed at: [address] [address] Evy Griffin MD, [facility] [place] DEXA AXIAL SKELETONon 81-68-4229[address] [address] XRay Report Signed Patient: KEILA RICHARDSON MR#: [id number] : 1970 Acct:[id number] Age/Sex: 53 / F ADM Date: 10/01/23 Loc: [facility] Attending Dr: Leah Berger Ordering Physician: Leah Berger Date of Service: 10/01/23 Procedure(s): XR DEXA axial skeleton Accession Number(s): [id number] cc: Leah Berger [address] [address] Patient Name: KEILA RICHARDSON MRN: [id number] date: 1970 Sex: F Assigned Patient Location: [facility] Current Patient Location: Accession/Order Number: [id number] Exam Date: 10/01/2023 14:58 Report Date: 10/02/2023 06:05 At the request of: LEAH AB Procedure: XR DEXA axial skeleton EXAMINATION: XR [...] to all patients. Management plans must be individualized. * Consider initiating pharmacologic treatment in postmenopausal women and men >= 50 years of age who have the following: Primary fracture prevention: * T-score <= - 2.5 at the femoral neck, total hip, lumbar spine, 33% radius (some uncertainty with existing data) by DXA. * Low bone mass (osteopenia: T-score between - 1.0 and - 2.5) at the femoral neck or total hip by DXA with a 10-year hip fracture risk >= 3% or a 10-year major osteoporosis-related fracture risk >= 20% (i.e., clinical vertebral, hip, forearm, or proximal humerus) based on the [place]-adapted FRAXregistered model. Secondary fracture prevention: * Fracture of the hip or vertebra regardless of BMD [4, 5]. * Fracture of proximal humerus, pelvis, or distal forearm in persons with low bone mass (osteopenia: T-score between - 1.0 and - 2.5). The decision to treat should be individualized in persons with a fracture of the proximal humerus, pelvis, or distal forearm who do not have osteopenia or low BMD [12, 13]. Wilbur MS, Yoni SL, Jose KL, Soniya EM, Parrish KG, AJ, Martha ES. The clinician's guide to prevention and treatment of osteoporosis. Osteoporos Int. 2021;33(10):2502-4801. doi: 10.1007/z81659-746-07334-s. Epub 2021Jun 06. Erratum in: Osteoporos Int. 2021Sep 05;: PMID: 93165661; PMCID: [id number]. Electronically authenticated by: PATTI THOMPSON Date: 10/02/2023 06:05 Dictated By: Patti Thompson M.D. Signed By: 10/02/23606 DD/ 4 TD/TT: Theatrical Agent:HORACEHRadiology, Radiologist, - 10/02/2023 The [place] [id number] XRay Report Signed Patient: KEILA RICHARDSON MR#: [id number] : 1970 Acct:[id number] Age/Sex: 53 / F ADM Date: 10/01/23 Loc: [facility] Attending Dr: Leah Berger Ordering Physician: Leah Berger Date of Service: 10/01/23 Procedure(s): XR DEXA axial skeleton Accession Number(s): [id number] cc: Leah Berger [place] [id number] Patient Name: KEILA RICHARDSON MRN: [id number] date: 1970 Sex: F Assigned Patient Location: [facility] Current Patient Location: Accession/Order Number: [id number] Exam Date: 10/01/2023 14:58 Report Date: 10/02/2023 06:05 At the request of: LEAH BERGER Procedure: XR DEXA axial skeleton EXAMINATION: XR [...] to all patients. Management plans must be individualized. * Consider initiating pharmacologic treatment in postmenopausal women and men >= 50 years of age who have the following: Primary fracture prevention: * T-score <= - 2.5 at the femoral neck, total hip, lumbar spine, 33% radius (some uncertainty with existing data) by DXA. * Low bone mass (osteopenia: T-score between - 1.0 and - 2.5) at the femoral neck or total hip by DXA with a 10-year hip fracture risk >= 3% or a 10-year major osteoporosis-related fracture risk >= 20% (i.e., clinical vertebral, hip, forearm, or proximal humerus) based on the [place]-adapted FRAXregistered model. Secondary fracture prevention: * Fracture of the hip or vertebra regardless of BMD [4, 5]. * Fracture of proximal humerus, pelvis, or distal forearm in persons with low bone mass (osteopenia: T-score between - 1.0 and - 2.5). The decision to treat should be individualized in persons with a fracture of the proximal humerus, pelvis, or distal forearm who do not have osteopenia or low BMD [12, 13]. Wilbur MS, Yoni SL, Jose KL, Soniya EM, Parrish KG, AJ, Martha ES. The clinician's guide to prevention and treatment of osteoporosis. Osteoporos Int. 2021;33(10):4088-0687. doi: 10.1007/e18675-517-43426-v. Epub 2021Jun 06. Erratum in: Osteoporos Int. 2021Sep 05;: PMID: 73197620; PMCID: [id number]. Electronically authenticated by: PATTI THOMPSON Date: 10/02/2023 06:05 Dictated By: Patti Thompson M.D. Signed By: 10/02/2307 DD/ 4 TD/TT: Theatrical Agent: SERENE HealthcareRadiology Study observation (narrative)[facility] HealthcareXR DEXA AXIAL SKELETONOrdered By: Radiologist Radiology on 20-97-3210ZVVJ Healthcare Work Phone: mm TOMOSYNTHESIS SCREENING BIon 99-16-85[address], [place] [address] Mammography Report Signed Patient: KEILA RICHARDSON MR#: [id number] : 1970 Acct:[id number] Age/Sex: 53 / F ADM Date: 10/01/23 Loc: MAMMO Attending Dr: Leah Berger Ordering Physician: Leah Berger Results: Date of Service: 10/01/23 Follow Up: Procedure(s): MM tomosynthesis screening BI Accession Number(s): [id number] cc: Leah Berger Patient Name: KEILA RICHARDSON MR#: [id number] : 1970 Exam Date: 10/01/2023 Ordering Doctor: KELVIN Berger . RADIOLOGY REPORT PROCEDURE: MM TOMOSYNTHESIS SCREENING BI COMPARISON: MG MAMM SCREEN JENNIFER W CAD, 04/13/2018. INDICATIONS: Screening Calculator Name NCI Breast Cancer Risk Assessment Tool 5 Year Breast Cancer Risk 1.20% Lifetime Breast Cancer Risk 9.60% Personal Breast Cancer No Personal Ovarian Cancer No Treatments None Family Cancers None LOCATION: [facility] BREAST COMPOSITION: There are scattered areas of fibroglandular density. FINDINGS: DIAGNOSTIC CATEGORY 0--INCOMPLETE: NEED ADDITIONAL IMAGING EVALUATION. RIGHT BREAST: 2 adjacent 5 mm slightly spiculated nodules within anterior lower-outer quadrant. Spot magnification views and ultrasound evaluation recommended. LEFT BREAST: No significant suspicious finding. Scattered benign-appearing calcifications are present. No significant change has occurred. RECOMMENDATIONS: ADDITIONAL MAMMOGRAPHIC VIEWS REQUIRED: RIGHT BREAST - RIGHT CRANIOCAUDAL SPOT MAGNIFICATION VIEW - RIGHT OBLIQUE SPOT MAGNIFICATION VIEW - ULTRASOUND: RIGHT BREAST PLEASE NOTE: A NORMAL MAMMOGRAM DOES NOT EXCLUDE THE POSSIBILITY OF BREAST CANCER. A CLINICALLY SUSPICIOUS PALPABLE LUMP SHOULD BE BIOPSIED. Dictated by: Patti Thompson M.D. on 10/01/2023 at 16:15 Approved by: Patti Thompson M.D. on 10/01/2023 at 16:19 Dictated By: Patti Thompson M.D. Signed By: 10/01/23 1620 DD/ 1619 TD/TT: Theatrical Agent:TBHRadiology, Radiologist, - 10/01/2023 [place] [address] Mammography Report Signed Patient: KEILA RICHARDSON MR#: [id number] : 1970 Acct:[id number] Age/Sex: 53 / F ADM Date: 10/01/23 Loc: MAMMO Attending Dr: Leah Berger Ordering Physician: Leah Berger Results: Date of Service: 10/01/23 Follow Up: Procedure(s): MM tomosynthesis screening BI Accession Number(s): [id number] cc: Leah Ab Patient Name: KEILA RICHARDSON MR#: [id number] : 1970 Exam Date: 10/01/2023 Ordering Doctor: KELVIN Berger . RADIOLOGY REPORT PROCEDURE: MM TOMOSYNTHESIS SCREENING BI COMPARISON: MG MAMM SCREEN JENNIFER W CAD, 04/13/2018. INDICATIONS: Screening Calculator Name NCI Breast Cancer Risk Assessment Tool 5 Year Breast Cancer Risk 1.20% Lifetime Breast Cancer Risk 9.60% Personal Breast Cancer No Personal Ovarian Cancer No Treatments None Family Cancers None LOCATION: [facility] BREAST COMPOSITION: There are scattered areas of fibroglandular density. FINDINGS: DIAGNOSTIC CATEGORY 0--INCOMPLETE: NEED ADDITIONAL IMAGING EVALUATION. RIGHT BREAST: 2 adjacent 5 mm slightly spiculated nodules within anterior lower-outer quadrant. Spot magnification views and ultrasound evaluation recommended. LEFT BREAST: No significant suspicious finding. Scattered benign-appearing calcifications are present. No significant change has occurred. RECOMMENDATIONS: ADDITIONAL MAMMOGRAPHIC VIEWS REQUIRED: RIGHT BREAST - RIGHT CRANIOCAUDAL SPOT MAGNIFICATION VIEW - RIGHT OBLIQUE SPOT MAGNIFICATION VIEW - ULTRASOUND: RIGHT BREAST PLEASE NOTE: A NORMAL MAMMOGRAM DOES NOT EXCLUDE THE POSSIBILITY OF BREAST CANCER. A CLINICALLY SUSPICIOUS PALPABLE LUMP SHOULD BE BIOPSIED. Dictated by: Patti Thompson M.D. on 10/01/2023 at 16:15 Approved by: Patti Thompson M.D. on 10/01/2023 at 16:19 Dictated By: Patti Thompson M.D. Signed By: 10/01/23 162 DD/ 161 TD/TT: Theatrical Agent: SERENE [facility] HospitalRadiology Study observation (narrative)[facility] TOMOSYNTHESIS SCREENING BIOrdered By: Radiologist Radiology on 20-81-0121YMYM [employer] Work Phone: XR shoulder RT min 2V*on 05-47-1451TV shoulder RT min 2V*[facility] [place] [facility] [address] [place] [address] XRay Report Signed Patient: Keila Richardson MR#: [id number] : 1970 Acct:[id number] Age/Sex: 53 / F ADM Date: 09/08/23 Loc: [facility] Room: Type: [facility] Attending Dr: Moncho Johnson MD Copies [...] Felix Petit M.D.09/08/2023 3:45 PM Dictation Location: [place] [address] Transcribed By: [facility] 09/08/23 1545 Dictated By: Felix Petit DO 09/08/23 1543 Signed By: 09/08/23 1545[facility] Physician GroupActivated partial thromboplastin time (aPTT) in platelet poor plasma by coagulation aOrdered By: Moncho Chao on 96-29-7531qPXU Coag (PPP) [Time]31.1 s25.1-36.5[facility] Comment on above:A hematocrit value greater than 55% may lead to inaccurate results in coagulation testing. Patientshaving hematocrit values >55% require a special collection tube for coagulation studies. Please contact the laboratory at [phone] for redraw instructions.Alanine aminotransferase [Enzymatic activity/volume] in Serum or PlasmaOrdered By: Moncho Chao on 45-55-0963WRQ [Catalytic activity/Vol]44 U/LNormal7-52[facility] Memorial HospitalComment on above:Performed By: #### PT, BNP, CMP, HS TROP, PTT, CBC #### [facility] [address] [place] [address] USAAlbumin [Mass/volume] in Serum or Plasma by Bromocresol green (BCG) dye binding methoOrdered By: Moncho Chao on 49-09-7894Wgxogyl BCG dye [Mass/Vol]4.1 g/dL3.5-5.7[facility] HospitalAlkaline phosphatase [Enzymatic activity/volume] in Serum or PlasmaOrdered By: Moncho Chao on 00-42-1626QPF [Catalytic activity/Vol]79 U/AGrqmkn63-326OgocwwwfkBrown Memorial HospitalComment on above:Performed By: #### PT, BNP, CMP, HS TROP, PTT, CBC #### [place] [address] USAAspartate aminotransferase [Enzymatic activity/volume] in Serum or PlasmaOrdered By: Moncho Chao on 84-86-7384OEE [Catalytic activity/Vol]57 U/QEcwe07-21HwoigguryBrown Memorial HospitalComment on above: Performed By: #### PT, BNP, CMP, HS TROP, PTT, CBC #### [place] [address] USAAutomated basophil %Ordered By: Moncho Chao on 62-22-1964Yzrsdofne/100 WBC (Bld)0.5 %Normal.[facility] Comment on above:Performed By: #### PT, BNP, CMP, HS TROP, PTT, CBC #### [place] [address] USAAutomated basophil countOrdered By: Moncho Chao on 62-84-7731Kbtwxzpgo (Bld) [#/Vol]0.0 10*3/uLNormal0.0-0.2[facility] HospitalComment on above:Result Comment: PERFORMED BY: [place] [address] PATHOLOGIST APPLICATION DEVELOPMENT TEAM LEAD ESTELITA CAZARES M.D.Performed By: #### PT, BNP, CMP, HS TROP, PTT, CBC #### [address] [place] [address] USAAutomated blood monocyte countOrdered By: Moncho Chao on 97-71-6456Qhkcmoprh (Bld) [#/Vol]0.2 10*3/uLNormal0.0-0.8[facility] Memorial HospitalComment on above:Performed By: #### PT, BNP, CMP, HS TROP, PTT, CBC #### [place] [address] USAAutomated eosinophil %Ordered By: Moncho Chao on 67-40-8166Gidxqapmspe/100 WBC (Bld)0.1 %Normal.[facility] Comment on above:Performed By: #### PT, BNP, CMP, HS TROP, PTT, CBC #### [place] [address] USAAutomated eosinophil countOrdered By: Moncho Chao on 25-12-9254Vxycpseumwd (Bld) [#/Vol]0.0 10*3/uLNormal0.0-0.45[facility] Memorial HospitalComment on above:Performed By: #### PT, BNP, CMP, HS TROP, PTT, CBC #### [place] [address] USAAutomated monocyte %Ordered By: Moncho Chao on 11-80-4697Pbvrexgkc/100 WBC (Bld)1.8 %Normal.[facility] Comment on above:Performed By: #### PT, BNP, CMP, HS TROP, PTT, CBC #### [place] [address] USAAutomated neutrophil %Ordered By: Moncho Chao on 18-38-8063Ffoiyvfjwuh/100 WBC (Bld)86.1 %Normal.[facility] Memorial HospitalComment on above:Performed By: #### PT, BNP, CMP, HS TROP, PTT, CBC #### [place] [address] USABNP ser/plasOrdered By: Moncho Chao on 08-27-2023 Natriuretic peptide B (Bld) [Mass/Vol]19.0 pg/mLNormal5-100Brown Memorial HospitalComment on above:Result Comment: PERFORMED BY: [place] [address] PATHOLOGIST APPLICATION DEVELOPMENT TEAM LEAD ESTELITA CAZARES M.D.Performed By: #### PT, BNP, CMP, HS TROP, PTT, CBC #### [facility] [address] [place] [address] USABilirubin.total [Mass/volume] in Serum or PlasmaOrdered By: Moncho Chao on 43-52-7172Nvbrygwub [Mass/Vol]0.6 mg/dLNormal0.3-1.0 [facility] Memorial HospitalComment on above:Performed By: #### PT, BNP, CMP, HS TROP, PTT, CBC #### [facility] [address] [place] [address] USACT chest wo conon 40-57-0602BY chest wo [facility] [address] [place] [address] CT Scan Report Signed Patient: Keila Richardson MR#: [id number] 09 : 1970 Acct:[id number] Age/Sex: 53 / F ADM Date: 08/26/23 Loc: ER Room: Type: [facility] ER Attending Dr: Copies to: Moncho Chao Jr, MD Ordering Provider: Moncho Chao Jr, MD Date of Service: 08/26/23 CT/CT cervical spine wo con: fall, neck pain ([id number]) CT/CT chest wo con: fall, R rib [...] Felix Petit M.D.08/27/2023 7:31 AM Dictation Location: [place] [address] Transcribed By: [facility] 08/27/23 0731 Dictated By: Felix Petit DO 08/27/23 0724 Signed By: 08/27/23 0731[facility] Physician GroupCalcium [Mass/volume] in Serum or PlasmaOrdered By: Moncho Chao on 44-38-4817Wuermpc [Mass/Vol]9.6 mg/dL Normal8.6-10.3FUC [facility] HospitalComment on above:Performed By: #### PT, BNP, CMP, HS TROP, PTT, CBC #### [facility] [address] [place] [address] USACarbon dioxide, total [Moles/volume] in Serum or Plasma Ordered By: Moncho Chao on 44-11-6402ZH5 [Moles/Vol]25.4 mmol/ZTglfom98.0-31.0 [facility] HospitalComment on above:Performed By: #### PT, BNP, CMP, HS TROP, PTT, CBC #### [facility] [address] [place] [address] USAChloride [Moles/volume] in Serum or PlasmaOrdered By: Moncho Chao on 19-70-6664Gbfufefp [Moles/Vol]105 mmol/LGneoym43-859ZfqcrtvceBrown Memorial HospitalComment on above:Performed By: #### PT, BNP, CMP, HS TROP, PTT, CBC #### [place] [address] USAComplete Blood Count Auto Diffon 99-43-2692Sgrr Corpuscular HGB Conc33.9 g/qBKyzmxf74.0-35.0The [facility] Physician GroupComment on above:Performed By: #### PT, BNP, CMP, HS TROP, PTT, CBC #### [place] [address] USAMonocytes/100 WBC (Bld)21.29 %High0.00-20.00The [facility] Physician GroupComment on above:Result Comment: For adults in ED, MDW > 20.0 may be associated with a higher risk of sepsis during the first 12 hrs of hospital admissionPerformed By: #### PT, BNP, CMP, HS TROP, PTT, CBC #### [place] [address] USANRBC%0.0 /100{WBC}Normal0-0.5The [facility] Comment on above:Performed By: #### PT, BNP, CMP, HS TROP, PTT, CBC #### [place] [address] USAComprehensive Metabolic Panelon 88-89-4774Jgdlhpt [Mass/Vol]4.1 g/dLNormal3.5-5.7The [facility] Physician GroupComment on above: Performed By: #### PT, BNP, CMP, HS TROP, PTT, CBC #### [place] [address] USACreatinine Clr Calc Ndgbpfjn951.85NormalThe [facility] Physician [facility] BiloxiComment on above:Result Comment: PERFORMED BY: [place] [address] PATHOLOGIST APPLICATION DEVELOPMENT TEAM LEAD ESTELITA CAZARES M.D.Performed By: #### PT, BNP, CMP, HS TROP, PTT, CBC #### [place] [address] USAGFR/1.73 sq M.predicted MDRD (S/P/Bld) [Vol rate/Area] mL/min/{1.73_m2}NormalThe [facility] Physician GroupComment on above:Performed By: #### PT, BNP, CMP, HS TROP, PTT, CBC #### [facility] [address] [place] [address] USACreatinine [Mass/volume] in Serum or PlasmaOrdered By: Moncho Chao on 64-67-4242Vnrpmppwac [Mass/Vol]0.76 mg/dLNormal0.60-1.20 [facility] HospitalComment on above:Performed By: #### PT, BNP, CMP, HS TROP, PTT, CBC #### [facility] [address] [place] [address] USAErythrocyte distribution width [Ratio] by Automated count Ordered By: Moncho Chao on 15-75-7275Rjadtxrouan distribution width (RBC) [Ratio]13.5 %Cqstse33.9-15.3[facility] HospitalComment on above: Performed By: #### PT, BNP, CMP, HS TROP, PTT, CBC #### [facility] [address] [place] [address] USAErythrocytes [#/volume] in Blood by Automated countOrdered By: Moncho Chao on 21-04-9568JSE (Bld) [#/Vol]4.75 10*6/uLNormal3.60-5.00 [facility] HospitalComment on above:Performed By: #### PT, BNP, CMP, HS TROP, PTT, CBC #### [facility] [address] [place] [address] USAGlucose [Mass/volume] in Serum or PlasmaOrdered By: Moncho Chao on 48-74-1761Wbmibpk [Mass/Vol]141 mg/hMWvwj23-867UmuhapwxeBrown Memorial HospitalComment on above:ADA recommended reference rangeRandom Glucose Reference Range is dependent on time and content of last meal. Glucose of more than 200 mg/dL in a nonstressed, ambulatory subject supports the diagnosisof Diabetes Mellitus.Result Comment: Random Glucose Reference Range is dependent on time and content of last meal. Glucose of more than 200 mg/dL in a nonstressed, ambulatory subject supports the diagnosis of Diabetes Mellitus. ADA recommended reference rangePerformed By: #### PT, BNP, CMP, HS TROP, PTT, CBC #### [place] [address] USAHematocrit [Volume Fraction] of Blood by Automated count Ordered By: Moncho Chao on 10-46-0612Cggfusfxhr (Bld) [Volume fraction]42.8 % Murcdh87.0-46.4[facility] HospitalComment on above:Performed By: #### PT, BNP, CMP, HS TROP, PTT, CBC #### [place] [address] USAHemoglobin [Mass/volume] in BloodOrdered By: Moncho Chao on 49-43-7103Ccdyonkpxs (Bld) [Mass/Vol]14.5 g/nIQhwwdz55.8-15.4[facility] HospitalComment on above:Performed By: #### PT, BNP, CMP, HS TROP, PTT, CBC #### [place] [address] USAINR in Platelet poor plasma by Coagulation assayOrdered By: Moncho Chao on 95-31-4285HER Coag (PPP) [Relative time]1.0 {INR}Normal [facility] HospitalComment on above:INR Therapeutic Range A) Pre- and Peroperative OAT started two weeks before surgery. NOT HIP SURGERY: 1.5 - 2.5 HIP SURGERY: 2 - 3B) Primary and secondary prevention of venous THROMBOSIS: 2 - 3C) Active venous thrombosis, pulmonary embolismand prevention of recurrent venous thrombosis: 2 - 3D) Prevention of arterial thromboembolismincluding patients with mechanical heart valves: 3 - 4.5Result Comment: INR Therapeutic Range A) Pre- and [...] patients with mechanical heart valves: 3 - 4.5Performed By: #### PT, BNP, CMP, HS TROP, PTT, CBC #### [address] [place] [address] USALeukocytes [#/volume] corrected for nucleated erythrocytes in Blood by Automated counOrdered By: Moncho Chao on 89-90-9920ZVW corrected for nucl RBC Auto (Bld) [#/Vol]9.0 10*3/uL3.8-11.6[facility] HospitalLeukocytes [#/volume] in Blood by Automated countOrdered By: Moncho Chao on 69-69-3249BXQ (Bld) [#/Vol]9.0 10*3/uLNormal3.8-11.6[facility] HospitalComment on above:Performed By: #### PT, BNP, CMP, HS TROP, PTT, CBC #### [place] [address] USALymphocytes [#/volume] in Blood by Automated countOrdered By: Moncho Chao on 83-64-7446Igozdcdrptz (Bld) [#/Vol]1.0 10*3/uLNormal 1.00-4.8[facility] HospitalComment on above:Performed By: #### PT, BNP, CMP, HS TROP, PTT, CBC #### [place] [address] USALymphocytes/100 leukocytes in Blood by Automated count Ordered By: Moncho Chao on 59-36-1622Dierjcoopkx/100 WBC (Bld)11.5 %Normal. [facility] HospitalComment on above:Performed By: #### PT, BNP, CMP, HS TROP, PTT, CBC #### [place] [id number] [facility] [Entitic mass] by Automated countOrdered By: Moncho Chao on 41-09-8364XXZ (RBC) [Entitic mass]30.6 dkQoppnk43.7-34.3[facility] HospitalComment on above:Performed By: #### PT, BNP, CMP, HS TROP, PTT, CBC #### [address] Auto (RBC) [Mass/Vol]Ordered By: Moncho Chao on 47-09-2182GTIT (RBC) [Mass/Vol]33.9 g/dL32.0-35.0[facility] Memorial HospitalMCV [Entitic volume] by Automated countOrdered By: Moncho Chao on 34-19-4868EYV (RBC) [Entitic vol]90.2 eGWzbkwg39-267FhnzoeuscBrown Memorial HospitalComment on above:Performed By: #### PT, BNP, CMP, HS TROP, PTT, CBC #### [facility] [address] [place] [address] USAMonocyte distribution width [Entitic volume] in Blood by AutomatedOrdered By: Moncho Chao on 44-78-8573Qkhhwiqi distribution width Auto (Bld) [Entitic vol]21.29 %High0.00-20.00[facility] HospitalComment on above:For adults in ED, MDW > 20.0 may be associated with a higher risk of sepsis during the first 12 hrs of hospital admissionNeutrophils [#/volume] in Blood by Automated countOrdered By: Moncho Chao on 91-13-7815Zzwukobpyxe (Bld) [#/Vol]7.7 10*3/uLNormal1.8-7.7[facility] HospitalComment on above:Performed By: #### PT, BNP, CMP, HS TROP, PTT, CBC #### [facility] [address] [place] [address] USANo Panel InformationOrdered By: Moncho Chao on 89-93-0944Moipdkxig GFR (CKD-EPI)> 60.0 mL/MinBrown Memorial Hospital Pharmacy Creatinine Clearance (Civc735.85[facility] Nucleated erythrocytes [Presence] in Blood by Automated countOrdered By: Moncho Chao on 83-23-0069Oiberbmai RBC Auto Ql (Bld)0.0 /100{WBC}0-0.5[facility] HospitalPartial Thromboplastin Timeon 45-21-6688wPWY Coag (Bld) [Time]31.1 vGqegri99.1-36.5The [facility] Physician GroupComment on above:Result Comment: A hematocrit value greater than 55% may lead to inaccurate results in coagulation testing. Patients having hematocrit values >55% require a special collection tube for coagulation studies. Please contact the laboratory at [phone] for redraw instructions. PERFORMED BY: [place] [address] PATHOLOGIST APPLICATION DEVELOPMENT TEAM LEAD ESTELITA CAZARES M.D.Performed By: #### PT, BNP, CMP, HS TROP, PTT, CBC #### [place] [address] USAPlatelet mean volume [Entitic volume] in Blood by Automated countOrdered By: Moncho Chao on 56-05-0341Ctmpuewi mean volume (Bld) [Entitic vol]7.3 fLNormal6.3-10.7[facility] HospitalComment on above:Performed By: #### PT, BNP, CMP, HS TROP, PTT, CBC #### [place] [address] USAPlatelets [#/volume] in Blood by Automated countOrdered By: Moncho Chao on 57-39-5576Mmgjyuvpt (Bld) [#/Vol]382 10*3/xUPstxox188-829 [facility] HospitalComment on above:Performed By: #### PT, BNP, CMP, HS TROP, PTT, CBC #### [place] [address] USAPotassium [Moles/volume] in Serum or PlasmaOrdered By: Moncho Chao on 26-11-4362Xsawtuarx [Moles/Vol]3.8 mmol/LNormal3.5-5.1[facility] HospitalComment on above:Performed By: #### PT, BNP, CMP, HS TROP, PTT, CBC #### [place] [address] USAProtein [Mass/volume] in Serum or PlasmaOrdered By: Moncho Chao on 34-58-1021Rmsixlk [Mass/Vol]7.7 g/dLNormal6.4-8.9[facility] Memorial HospitalComment on above:Performed By: #### PT, BNP, CMP, HS TROP, PTT, CBC #### [place] [address] USAProthrombin time (PT)Ordered By: Moncho Chao on 47-08-3587DE Coag (PPP) [Time]11.6 sNormal9.0-12.9[facility] Memorial HospitalComment on above:A hematocrit value greater than 55% may lead to inaccurate results in coagulation testing. Patientshaving hematocrit values >55% require a special collection tube for coagulation studies. Please contact the laboratory at [phone] for redraw instructions.Result Comment: A hematocrit value greater than 55% may lead to inaccurate results in coagulation testing. Patients having hematocrit values >55% require a special collection tube for coagulation studies. Please contact the laboratory at [phone] for redraw instructions.Performed By: #### PT, BNP, CMP, HS TROP, PTT, CBC #### [facility] [address] [place] [address] USASerum globulin measurement by calculation (mass/volume) Ordered By: Moncho Chao on 08-40-8192Xxthnsvx (S) [Mass/Vol]3.6 g/dLNormal [facility] HospitalComment on above:Performed By: #### PT, BNP, CMP, HS TROP, PTT, CBC #### [facility] [address] [place] [address] USASerum or plasma albumin/globulin mass ratioOrdered By: Moncho Chao on 93-80-7978Esmlcsr/Globulin [Mass ratio]1.1 {ratio}Normal [facility] HospitalComment on above:Performed By: #### PT, BNP, CMP, HS TROP, PTT, CBC #### [facility] [address] [place] [id number] USASerum or plasma anion gap determinationOrdered By: Moncho Chao on 50-65-1937Xswga gap [Moles/Vol]11.4 mmol/LNormal6.0-15.0[facility] Memorial HospitalComment on above:Performed By: #### PT, BNP, CMP, HS TROP, PTT, CBC #### [facility] [address] [place], [place] [address] USASodium [Moles/volume] in Serum or PlasmaOrdered By: Moncho Chao on 92-33-0036Mqfmql [Moles/Vol]138 mmol/ICpkfxy753-104VbmxtfdmhBrown Memorial HospitalComment on above:Performed By: #### PT, BNP, CMP, HS TROP, PTT, CBC #### [place] [address] USATroponin I High Sensitivityon 44-16-3825Csxumpqx I High Sensitivity3.5 pg/mLNormal0.0-15.0The [facility] Physician GroupComment on above: Result Comment: PERFORMED BY: [place] [address] PATHOLOGIST APPLICATION DEVELOPMENT TEAM LEAD ESTELITA CAZARES M.D.Performed By: #### PT, BNP, CMP, HS TROP, PTT, CBC #### [place] [address] USATroponin I.cardiac [Mass/volume] in Serum or Plasma by Detection limit <= 0.01 ng/Ordered By: Moncho Chao on 82-74-7685Vlwjdwie I.cardiac DL <= 0.01 ng/mL [Mass/Vol]3.5 pg/mL0.0-15.0[facility] Memorial HospitalUrea nitrogen [Mass/volume] in Serum or PlasmaOrdered By: Moncho Chao on 11-38-4579Mphi nitrogen [Mass/Vol]15 mg/dLNormal7-25[facility] Memorial HospitalComment on above:Performed By: #### PT, BNP, CMP, HS TROP, PTT, CBC #### [place] [id number] USAXR femur RT 2V*on 85-48-3273CO femur RT 2V*[facility] [place] [address] [place], [place] [address] XRay Report Signed Patient: Keila Richardson MR#: [id number] [birth year] : 1970 Acct:[id number] Age/Sex: 53 / F ADM Date: 08/26/23 Loc: ER Room: Type: [facility] ER Attending Dr: Copies to: Moncho Chao Jr, MD Ordering Provider: Moncho Chao Jr, MD Date of Service: 08/26/23 XR/XR femur RT 2V*: Fall ([id number]) XR/XR humerus RT*: Fall ([id number]) XR/XR shoulder RT min 2V*: Fall ([id number]) XR/XR pelvis 1-2V: Fall 3 views right [...] Felix Petit M.D.08/27/2023 7:35 AM Dictation Location: [place] [address] Transcribed By: [facility] 08/27/23 0735 Dictated By: Felix Petit DO 08/27/23 0731 Signed By: 08/27/23 0735[facility] Physician GroupECG 12 lead ECGon 24-11-5331RMF 12 lead ECGNATIONW[facility] [place] [address] [place] [address] Electrocardiograph Report Signed Patient: Keila Richardson MR#: [id number] [birth year] : 1970 Acct:[id number] Age/Sex: 53 / F ADM Date: 08/26/23 Loc: ER Room: Type: [facility] ER Attending Dr: Ordering Provider: Moncho [...] Borderline ECG When compared with ECG of 19-Reinaldo-2021 02:26, No significant change was found Confirmed by CHET ESPARZA MD ([id number]) on 08/29/2023 1:27:04 PM Referred By: Electronically Signed By: CHET ESPARZA MD Transcribed By: MUS Signed By Chet Esparza MD 0 08/29/23 1327[facility] BiloxiCovid-19 PCR (CVDTB)on 81-00-0608QPYI-CoV-2 (COVID-19) RNA RAKAN+probe Ql (Unsp spec)Not detectedNormal NOT DETECTEDChillicothe HospitalComment on above:Result Comment: This test is not yet approved or cleared by the [place] FDA. When there are no FDA- approved or cleared tests available, and other criteria are met, FDA can make tests available under an emergency access mechanism called an Emergency Use Authorization (EUA). The EUA for this test is supported by the [place] of Health and Human Service's (HHS's) declaration [...] of clinical signs and symptoms consistent with SARS-CoV-2.Performed By: #### CVDTBH #### [facility] [address] [place] [address] Dr. Laura ChavisCovid-19 PCR (CVDTB)on 01-93-1330VFIN-CoV-2 (COVID-19) RNA RAKAN+probe Ql (Unsp spec)Not detectedNormalNOT DETECTEDChillicothe Hospital Comment on above:Result Comment: This test is not yet approved or cleared by the [place] FDA. When there are no FDA-approved or cleared tests available, and other criteria are met, FDA can make tests available under an emergency access mechanism called an Emergency Use Authorization (EUA). The EUA for this test is supported by the [place] of Health and Human Service's (HHS's) declaration that circumstances exist to justify the emergency use of in vitro diagnostics for the detection and/or diagnosis of the virus that causes COVID- 19. This EUA will remain in effect (meaning [...] of clinical signs and symptoms consistent with SARS-CoV-2.Performed By: #### CVDTBH #### [facility] [address] [place] [address] Dr. Laura Puentes AUTO DIFFon 06-94-1444CXUR #0.0 103/ulNormal0.0-0.1The [facility] Medical CenterComment on above:Performed By: #### CBC #### [facility] [address] [place] [address] Dr. Laura Mohansophils/100 WBC (Bld)0.3 %Normal0.2-2.0The [facility] Comment on above:Performed By: #### CBC #### [facility] [address] [place] [address] Dr. Laura Buckley #0.1 103/ulNormal0.0-0.7The [facility] Medical CenterComment on above: Performed By: #### CBC #### [facility] [address] [place] [address] Dr. Laura Monteosinophils/100 WBC (Bld)0.6 %Critically low0.9-7.0The [facility] Medical CenterComment on above:Performed By: #### CBC #### [facility] [address] [place] [address] Dr. Laura Monterythrocyte distribution width (RBC) [Ratio]14.3 %Hlyrvy95.0-15.0 The [facility] Medical CenterComment on above:Performed By: #### CBC #### [facility] [address] [place] [address] [address] Laura ChavisHematocrit (Bld) [Volume fraction]41.4 %Apfofn45.0-48.0The [facility] Medical CenterComment on above:Performed By: #### CBC #### [facility] [address] [place] [address] [address] Laura ChavisHemoglobin (Bld) [Mass/Vol]13.0 g/gAVqxdju83.0-16.0The [facility] Medical CenterComment on above:Performed By: #### CBC #### [facility] [address] [place] [address] [address] Laura Black #0.07 10e3/ulCritically high0.00-0.03The [facility] Comment on above:Performed By: #### CBC #### [facility] [address] [place] [address] Dr. Laura Black %0.6 %Critically high0.0-0.5The [facility] Medical CenterComment on above:Performed By: #### CBC #### [facility] [address] [place] [address] [address] Laura Gale #4.4 103/ulCritically high1.2-3.8The [facility] Comment on above:Performed By: #### CBC #### [facility] [address] [place] [address] [address] Laura Jacksonmphocytes/100 WBC (Bld)39.4 %Krvbuz94.5-60.0The [facility] CenterComment on above:Performed By: #### CBC #### [facility] [address] [place] [address] [address] Laura ChavisMANUAL DIFF REQNONormalThe [facility] Medical CenterComment on above: Performed By: #### CBC #### [facility] [address] [place] [address] [address] Laura Yee (RBC) [Entitic mass]28.7 mzSddaou84.7-34.0The [facility] Medical CenterComment on above:Performed By: #### CBC #### [facility] [address] [place] [address] [address] Laura Rene (RBC) [Mass/Vol]31.4 g/yYHbeyrh97.9-35.2The [facility] Medical CenterComment on above:Performed By: #### CBC #### [facility] [address] [place] [address] Dr. Laura ReneV (RBC) [Entitic vol]91.4 bCKpfjur84.0-99.0The [facility] Medical CenterComment on above:Performed By: #### CBC #### [facility] [address] [place] [address] Dr. Laura Romo #0.8 103/ulNormal0.3-0.8The [facility] Medical CenterComment on above:Performed By: #### CBC #### [facility] [address] [place] [address] Dr. Laura Monetocytes/100 WBC (Bld)6.9 %Normal1.7-12.0The [facility] Comment on above:Performed By: #### CBC #### [facility] [address] [place] [address] Dr. Laura Esteban #5.8 103/ulNormal1.4-6.5The [facility] Medical CenterComment on above:Performed By: #### CBC #### [facility] [address] [place] [address] Dr. Laura Flahertyutrophils/100 WBC (Bld)52.2 %Eztxav22.0-75.0The [facility] CenterComment on above:Performed By: #### CBC #### [facility] [address] [place] [address] Dr. Laura Cannonlet mean volume (Bld) [Entitic vol]8.8 fLCritically low 9.5-13.5The [facility] CenterComment on above:Performed By: #### CBC #### [facility] [address] [place] [address] Dr. Laura ChavisPLT365 103/ddOgfbpk692-160Nti [facility] CenterComment on above: Performed By: #### CBC #### [facility] [address] [place] [address] Dr. Laura ChavisRBC4.53 106/ulNormal4.20-5.40The [facility] Medical CenterComment on above:Performed By: #### CBC #### [facility] [address] [place] [address] Dr. Laura ChavisWBC11.2 103/ulCritically high4.0-11.0The [facility] Medical CenterComment on above:Performed By: #### CBC #### [facility] [address] [place] [address] Dr. Laura Noel NARES #1on 32-25-6231SFLL NARES #1Culture Observations: NO GROWTH OF MRSA AT 48 HOURS.NormalThe [facility] Medical CenterComment on above: Performed By: #### MRSAN1 #### [facility] [address] [place] [address] Dr. Laura ChavisPROF CHEM 8 (BAS METB)on 64-92-9492Aawza gap [Moles/Vol]8.3 mmol/LNormalThe [facility] CenterComment on above:Performed By: #### BMP #### [facility] [address] [place] [address] Dr. Laura ChavisCalcium [Mass/Vol]9.0 mg/dLNormal8.5-10.1The [facility] Comment on above:Performed By: #### BMP #### [facility] [address] [place] [address] Dr. Laura ChavisChloride [Moles/Vol]105 mmol/JClktng09-268Ndc [facility] Comment on above:Performed By: #### BMP #### [facility] [address] [place] [address] Dr. Laura ChavisCO2 [Moles/Vol]30.4 mmol/ZYxccoe50.0-32.0The [facility] Comment on above:Performed By: #### BMP #### [facility] [address] [place] [address] Dr. Laura ChavisCreatinine [Mass/Vol]0.92 mg/dLNormal0.55-1.02The [facility] CenterComment on above:Performed By: #### BMP #### [facility] [address] [place] [address] [address] Laura MonteGFR-AF LITHUANIAN>60Normal>=60The [facility] CenterComment on above:Performed By: #### BMP #### [facility] [address] [place] [address] [address] Laura MonteGFR-NON AF LITHUANIAN>60Normal>=60The [facility] CenterComment on above:Performed By: #### BMP #### [facility] [address] [place] [address] [address] Laura ChavisGlucose [Mass/Vol]87 mg/qXBltgnp48-191Edr [facility] Comment on above:Performed By: #### BMP #### [facility] [address] [place] [address] [address] Laura ChavisPotassium [Moles/Vol]3.7 mmol/LNormal3.5-5.1[facility] Comment on above:Performed By: #### BMP #### [facility] [address] [place] [address] [address] Laura ChavisSodium [Moles/Vol]140 mmol/LDzuisq743-493Etj [facility] Comment on above:Performed By: #### BMP #### [facility] [address] [place] [address] [address] Laura ChavisUrea nitrogen [Mass/Vol]19.0 mg/dLCritically high7.0-18.0The [facility] CenterComment on above:Performed By: #### BMP #### [facility] [facility] [address] [address] [address] Laura Darden nitrogen/Creatinine [Mass ratio]20.7 mg/mgNormalThe [facility] Medical CenterComment on above:Performed By: #### BMP #### [facility] [address] [address] [address] Laura Marsh [id number] Coag (PPP) [Relative time]0.95 {INR} NormalThe Meadowbrook HospitalComment on above:Performed By: #### CVDTBH #### [facility] [address] [place] [address] Dr. Laura Nolasco [facility] Medical CenterComment on above:Result Comment: DESIRED INR: 2.0 - 3.0 CONDITIONS NOT LISTED BELOW 2.5 - 3.5 FOR PROSTHETIC HEART VALVE REPLACEMENT 2.5 - 3.5 RECURRENT THROMBOSIS Performed By: #### CVDTBH #### [facility] [address] [place] [address] Dr. Laura Bhat Coag (PPP) [Time]10.3 sNormal9.0-11.6ThDayton Children's Hospital Comment on above:Performed By: #### CVDTBH #### [facility] [address] [place] [address] Dr. Laura Delaney [id number] Coag (Bld) [Time]27.5 nNrcwvp36.3-36.2Chillicothe HospitalComment on above:Performed By: #### PT, PTT #### [facility] [address] [place] [address] Dr. [address] Chavis[address] [id number] Department of Radiology [address] [place] [phone] Patient Name: KEILA RICHARDSON : 1970 Sex: F Age: Race: White Pt. Location: Patient Status: O Ordered Date: 10/18/2021 12:35:00 PM Completed Date: 10/18/2021 12:49 PM Requesting Provider: CHARLY FARIAS Attending Provider: CHARLY FARIAS Report Copy To: Signs & Symptoms: S72.91XA Unsp fracture of right femur, init for clos fx I10 History: Rougon Comments: Evaluate Exam: FEMUR RIGHT 2 VWS [...] ORIF Electronically signed: Moncho Beyer. Transcribed by: [email or web address], User Resident: Electronically Signed by: MONCHO BEYER @ 10/18/2021 02:00 PMNCleveland Clinic South Pointe HospitalComment on above:Order Comment: EvaluateHIP LEFT 1 OR 2 VWS WITH PELVISon 17-68-6218JVI LEFT 1 OR 2 VWS WITH PELVISUnLouis Stokes [facility] Department of Radiology [address] [place] [phone] Patient Name: KEILA RICHARDSON : 1970 [...] hip. Electronically signed: Daniel Meza. Transcribed by: [email or web address], User Resident: DANIEL MEZA Electronically Signed by: DANIEL MEZA @ 09/29/2021 02:18 PM I personally read this/these film(s) with this residentCleveland Clinic Marymount HospitalComment on above:Order Comment: EvaluateJOINT PAIN INJECTIONon 95-32-0962EKBGK PAIN INJECTIONUnLouis Stokes [facility] Medical Center Department of Radiology [address] [place] [phone] Patient Name: KEILA RICHARDSON : 1970 [...] report. Electronically signed: Magy Paz. Transcribed by: [email or web address], User Resident: AIDA OBANDO Electronically Signed by: MAGY PAZ @ 08/15/2021 01:28 PM I personally read this/these film(s) with this [facility] BeachwoodComment on above:Order Comment: Please inject 4cc of lidocaine 1% and 2cc of kenalog 10mg in the left hip , Body Part: Hip , Side: LEFTFEMUR RIGHT 2 [facility] 25-08-8568CQLWT RIGHT 2 [facility] Department of Radiology [address] [place] [phone] Patient Name: KEILA RICHARDSON : 1970 Sex: F Age: Race: White Pt. Location: Patient Status: D Ordered Date: 07/12/2021 1:00:00 PM Completed Date: 07/12/2021 01:09 PM Requesting Provider: CHARLY FARIAS Attending Provider: CHARLY FARIAS Report Copy To: MARIBELL ALVAREZ Signs & Symptoms: S72.91XA Unsp fracture of right femur, init for clos fx I10 History: Rougon Comments: , , , Ordering Provider - [...] Electronically signed: Jose Juan Sandoval. Transcribed by: [email or web address], User Resident: Electronically Signed by: JOSE JUAN SANDOVAL @ 07/13/2021 10:29 [facility]uff[facility] HospitalComment on above:Order Comment: EvaluateFEMUR RIGHT 2 Son [id number] RIGHT 2 SUniversOhioHealth Southeastern Medical Center Department of Radiology [address] [place] [phone] Patient Name: KEILA RICHARDSON : 1970 [...] report. Electronically signed: Magy Paz. Transcribed by: [email or web address], User Resident: EDMAR BROWN Electronically Signed by: MAGY PAZ @ 05/22/2021 03:10 PM I personally read this/these film(s) with this [facility], BeachwoodComment on above:Order Comment: EvaluateFEMUR RIGHT 2 Son 31-58-2567NJKUE RIGHT 2 SUniParkview Health [facility]pel[facility] Department of Radiology [address] [place] [phone] Patient Name: KEILA RICHARDSON : 1970 Sex: F Age: Race: White Pt. Location: 84 Patient Status: O Ordered Date: 04/24/2021 11:20:00 AM Completed Date: 04/24/2021 11:23 AM Requesting Provider: CHARLY FARIAS Attending Provider: CHARLY FARIAS Report Copy To: MARIBELL ALVAREZ Signs & Symptoms: S72.91XA Unsp fracture of right femur, init for clos fx I10 History: Rougon Comments: Exam: FEMUR RIGHT 2 VWS FEMUR [...] noted. Electronically signed: German Gamble. Transcribed by: [email or web address], User Resident: Electronically Signed by: GERMAN GAMBLE @ 04/24/2021 12:18 PMNormalThe [facility] County Medical CenterHIP LEFT 1 OR 2 VWS WITH PELVISon 04-14-2021 HIP LEFT 1 OR 2 VWS WITH PELVISUnLouis Stokes [facility] Department of Radiology [address] [place] [phone] Patient Name: KEILA RICHARDSON : 1970 Sex: F Age: Race: White Pt. Location: [id number] Patient Status: I Ordered Date: 04/14/2021 7:55:00 [...] limitations. Electronically signed: ALEX PRATT. Transcribed by: [email or web address], User Resident: Electronically Signed by: ALEX PRATT @ 04/14/2021 11:40 [facility] HospitalComment on above:Order Comment: EvaluateBASIC METABOLIC PANELon 41-09-9000Cdxqjkc [Mass/Vol]8.3 mg/dLLow8.6-10.3The [facility] Medical CenterComment on above:Order Comment: No: Do not add to previous drawPerformed By: #### [id number] #### [facility] [address] [place] [address], USAChloride [Moles/Vol]101 mmol/MAnswul57-739Rxl [facility] Medical CenterComment on above:Order Comment: No: Do not add to previous drawPerformed By: #### [id number] #### [facility] [address] [place] [address], USACO2 [Moles/Vol]27 mmol/JWruljx36-12Usv [facility] Medical CenterComment on above:Order Comment: No: Do not add to previous draw Performed By: #### 47668 #### [facility] [address] [place] [address], USACreatinine [Mass/Vol]0.70 mg/dLNormal0.60-1.20The [facility] Medical CenterComment on above:Order Comment: No: Do not add to previous drawPerformed By: #### 43713 #### [facility] [address] [place] [address], USAGFR/1.73 sq M.predicted among blacks MDRD (S/P/Bld) [Vol rate/Area]mL/min/{1.73_m2}Normal>60The [facility] Comment on above:Order Comment: No: Do not add to previous drawPerformed By: #### 43705 #### [facility] [address] [place] [address], USAGFR/1.73 sq M.predicted among non-blacks MDRD (S/P/Bld) [Vol rate/Area]mL/min/{1.73_m2}Normal>60The [facility] Comment on above:Order Comment: No: Do not add to previous drawPerformed By: #### [id number] #### [facility] [address] [place] [address], USAGlucose [Mass/Vol]116 mg/lZAhug69-490Bmf [facility] CenterComment on above:Order Comment: No: Do not add to previous drawPerformed By: #### [id number] #### [facility] [address] [place] [address], USAPotassium [Moles/Vol]4.1 mmol/LNormal3.5-5.1The [facility] Medical CenterComment on above:Order Comment: No: Do not add to previous drawPerformed By: #### 36034 #### [facility] [address] [place] [address], USASodium [Moles/Vol]136 mmol/PPvmrjy239-139Cqq [facility] CenterComment on above:Order Comment: No: Do not add to previous drawPerformed By: #### 30841 #### [facility] [address] [place] [address], USAUrea nitrogen [Mass/Vol]16 mg/dLNormal7-25The [facility] CenterComment on above:Order Comment: No: Do not add to previous drawPerformed By: #### 77387 #### [facility] [address] [address], USACBC COMPLETE BLOOD COUNTon 77-95-1011Lgpykqtmtzn distribution width (RBC) [Ratio]13.1 %Myqfhu02.5-15.0The [facility] CenterComment on above:Order Comment: EvaluatePerformed By: #### 32107 ####[facility] [place] [address], [place] Hematocrit (Bld) [Volume fraction]33.2 %Low36.0-45.0The [facility] Medical CenterComment on above:Order Comment: EvaluatePerformed By: #### 23078 ####[facility] [facility] [place] [address], [facility] Hemoglobin (Bld) [Mass/Vol]11.6 g/dLLow12.0-15.0The [facility] CenterComment on above:Order Comment: EvaluatePerformed By: #### 44905 ####[facility] [facility] [place] [address], [facility] MCH (RBC) [Entitic mass]31.5 odIebprc17.0-33.0The [facility] CenterComment on above:Order Comment: EvaluatePerformed By: #### 63654 ####[facility] [facility] [place] [address], [facility] MCHC (RBC) [Mass/Vol]34.9 g/wTLufjqy84.0-35.0The [facility] CenterComment on above:Order Comment: EvaluatePerformed By: #### 73273 ####[facility] [facility] [place] [address], [facility] MCV (RBC) [Entitic vol]90.2 bKPqirhd00.0-98.0The [facility] CenterComment on above:Order Comment: EvaluatePerformed By: #### 27537 ####[facility] [place] [address], [facility] Nucleated RBC/100 WBC (Bld) [Ratio]0 %Normal0-0The [facility] CenterComment on above:Order Comment: EvaluatePerformed By: #### 37601 ####[facility] [facility] [place] [address], [facility] PLAT [id number] 10*3/xMAjikgf345-844Ydc [facility] CenterComment on above:Order Comment: EvaluatePerformed By: #### [address] ####[place] [address], [facility] SERVICE UNITRBC (Bld) [#/Vol] 3.68 10*6/uLLow3.80-5.00The [facility] CenterComment on above: Order Comment: EvaluatePerformed By: #### 41399 ####[facility] [place] [address], DARÍOWBC (Bld) [#/Vol]11.61 10*3/uL High4.00-10.60The [facility] CenterComment on above:Order Comment: EvaluatePerformed By: #### 65332 ####[facility] [place] [address], [facility] SERVICE UNITOperative Reporton 04-11-2021 Operative ReportMR#: [id number] I [facility] Pt. Name: Keila Richardson Room #: [id number] Discharge Date: Birthdate: 1970 OPERATIVE REPORT DATE OF SURGERY: 04/10/2021 SURGEON: Charly Farias M.D. BOLT MAKER: Chriss Chery MD PREOPERATIVE DIAGNOSIS: Right femoral [...] began the procedure by utilizing x-ray to dinora out her incision utilizing the previous laterally [...] place 2 distal interlocking screws using perfect chenega technique in new screw holes both of [...] place multiple 4.5 cortical (more content not included)...NormalThe [facility] Medical CenterPORTABLE TIBIA FIBULA LEFTon 31-19-7854JDXEMZGC TIBIA FIBULA LEFTUnLouis Stokes [facility] Department of Radiology [address] [place] [phone] Patient Name: KEILA RICHARDSON : 1970 Sex: F Age: Race: White Pt. Location: [id number] Patient Status: I Ordered Date: 04/11/2021 7:45:00 [...] report. Electronically signed: Gordon Dumont. Transcribed by: [email or web address], User Resident: KARLA REECE Electronically Signed by: GORDON DUMONT @ 04/12/2021 02:58 PM I personally read this/these film(s) with this residentCleveland Clinic Marymount HospitalComment on above:Order Comment: Evaluate*ANAEROBIC CULTURE on 04-10-2021*ANAEROBIC CULTUREClinical Report: (D) Specimen/Source: TISSUE/INTRAOP SPEC Collected: 04/10/2021 13:35 Status: Final Last Updated: 04/15/2021 08:17 (1) 1. Right femur non union site CULT RES (Final) No Anaerobes Isolated 5 DaysNoMercy Health Perrysburg HospitalComment on above:Order Comment: EvaluatePerformed By: #### 67812 ####[address]*TISSUE CULTUREon 04-10-2021*TISSUE CULTUREClinical Report: (D) Specimen/Source: TISSUE/INTRAOP SPEC Collected: 04/10/2021 13:35 Status: Final Last Updated: 04/15/2021 08:00 (1) 1. Right femur non union site GRAM (Final) No Polys Seen No Bacteria Seen CULT RES (Final) No Growth Day 5Cleveland Clinic Marymount HospitalComment on above: Order Comment: 1. Right femur non union sitePerformed By: #### 33962 #### [facility] [address] [place] [address], USABASIC METABOLIC PANELon 72-40-5180Vvnglou [Mass/Vol]8.6 mg/dLNormal8.6-10.3The [facility] CenterComment on above:Order Comment: EvaluatePerformed By: #### 96454 ####[facility] [place] [address], USAChloride [Moles/Vol]103 mmol/L Jxwjna32-933Hnh [facility] CenterComment on above:Order Comment: EvaluatePerformed By: #### 12582 ####[facility] [place] [address], USACO2 [Moles/Vol]25 mmol/LNormal 21-31The [facility] CenterComment on above:Order Comment: EvaluatePerformed By: #### 83633 ####[facility] [place] [address], USACreatinine [Mass/Vol]0.68 mg/dLNormal 0.60-1.20The [facility] CenterComment on above:Order Comment: EvaluatePerformed By: #### 65103 ####[facility] [place] [address], USAGFR/1.73 sq M.predicted among blacks MDRD (S/P/Bld) [Vol rate/Area]mL/min/{1.73_m2}Normal>60The [facility] CenterComment on above:Order Comment: EvaluatePerformed By: #### 39529 ####[facility] [place] [address], [place] GFR/1.73 sq M.predicted among non-blacks MDRD (S/P/Bld) [Vol rate/Area] mL/min/{1.73_m2}Normal>60The [facility] CenterComment on above:Order Comment: EvaluatePerformed By: #### 79302 ####[facility] [place] [address], USAGlucose [Mass/Vol]154 mg/eSHduu51-072Xnn [facility] CenterComment on above:Order Comment: EvaluatePerformed By: #### 49268 ####[facility] [place] [address], USAPotassium [Moles/Vol]4.0 mmol/L Normal3.5-5.1The [facility] CenterComment on above:Order Comment: EvaluatePerformed By: #### 23287 ####[facility] [place] [address], USASodium [Moles/Vol]138 mmol/LNormal 136-145The [facility] Medical CenterComment on above:Order Comment: EvaluatePerformed By: #### 52830 ####[facility] [place] [address], USAUrea nitrogen [Mass/Vol]15 mg/dLNormal7-25The [facility] CenterComment on above:Order Comment: Evaluate Performed By: #### 43207 ####[facility] [place] [address], USAFEMUR RIGHT 2 [facility] 95-08-7264EZFVW RIGHT [address] [facility] Department of Radiology [address] [place] [phone] Patient Name: KEILA RICHARDSON : 1970 [...] Electronically signed: Luis Miguel Sheikh. Transcribed by: [email or web address], User Resident: Electronically Signed by: LUIS MIGUEL SHEIKH @ 04/10/2021 08:10 PMNormalThe [facility] Medical CenterComment on above:Order Comment: T DISTAL FEMUR REVISION ORIFPOC GLUCOSE LABon 65-17-0239Xosxsem [Mass/Vol]92 mg/dLNormal 70-100The [facility] Medical CenterComment on above:Performed By: #### [id number] #### [address] [place] [address], USAPORTABLE FEMUR RIGHT 2 VWSon 12-28-7735AGLTWRLZ FEMUR RIGHT 2 SUniParkview [facility] Department of Radiology [address] [place] [phone] Patient Name: KEILA RICHARDSON : 1970 Sex: F Age: Race: White Pt. 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 Transcribed by: [email or web address], User Resident: Electronically Signed by: LUIS MIGUEL SHEIKH @ 04/10/2021 08:04 [facility] FoundationComment on above:Order Comment: EvaluateTYPE AND SCREENon 99-49-3656KSC [facility] Medical CenterComment on above:Performed By: #### 41141 ####[facility] [place] [address], USARH INTERPRETATIONPositive NormalThe [facility] County Medical CenterComment on above:Performed By: #### 10544 ####[facility] [place] [address], USAC-Reactive Proteinon 04-43-2364RFC IV1.3 mg/dlNormal<5.0NortMercy Health Urbana Hospital SpecialistComment on above:Performed By: #### CBCAD, LIPD, CMP, VITD, CRP, ESR #### [facility] [address], [place] [id number] Blood Count with Auto Diffon 77-61-7072Nqvvlkout (Bld) [#/Vol]0.02 10*3/uLNormal0.00-0.20NoAshtabula General Hospital SpecialistComment on above:Performed By: #### CBCAD, LIPD, CMP, VITD, CRP, ESR #### [facility] [address] [place], [place] [id number]/100 WBC (Bld)0.3 %NormalNoAshtabula General Hospital SpecialistComment on above:Performed By: #### CBCAD, LIPD, CMP, VITD, CRP, ESR #### [facility] [address] [facility]ene[place], [place] [id number] (Bld) [#/Vol]0.26 10*3/uLNormal0.02-0.50NoAshtabula General Hospital SpecialistComment on above:Performed By: #### CBCAD, LIPD, CMP, VITD, CRP, ESR #### [facility] [address], [place] [id number]/100 WBC (Bld)4.0 %NormalSelect Medical [facility] SpecialistComment on above:Performed By: #### CBCAD, LIPD, CMP, VITD, CRP, ESR #### [facility] [address], [place] [id number] distribution width (RBC) [Ratio]13.2 %Normal 11.0-15.0[facility] SpecialistComment on above:Performed By: #### CBCAD, LIPD, CMP, VITD, CRP, ESR #### [facility] [address], [place] [id number] (Bld) [Volume fraction]40.1 %Hvhenv99.0-47.0 [facility] SpecialistComment on above:Performed By: #### CBCAD, LIPD, CMP, VITD, CRP, ESR #### [facility] [address], [place] [id number] (Bld) [Mass/Vol]13.0 g/dTTfwinp41.6-15.5[facility] SpecialistComment on above:Performed By: #### CBCAD, LIPD, CMP, VITD, CRP, ESR #### [facility] [address], [place] [id number] (Bld) [#/Vol]2.6 10*3/uLNormal0.9-3.9[facility] SpecialistComment on above:Performed By: #### CBCAD, LIPD, CMP, VITD, CRP, ESR #### [facility] [address], [place] [id number]/100 WBC (Bld)39.4 %NormalSelect Medical Specialty [facility] SpecialistComment on above:Performed By: #### CBCAD, LIPD, CMP, VITD, CRP, ESR #### [facility] [address], [place] [id number] (RBC) [Entitic mass]29.9 vvYyfcty65.0-33.0[facility] SpecialistComment on above:Performed By: #### CBCAD, LIPD, CMP, VITD, CRP, ESR #### [facility] [address], [place] [id number] (RBC) [Mass/Vol]32.4 g/cDZsgzyx20.0-36.0[facility] SpecialistComment on above:Performed By: #### CBCAD, LIPD, CMP, VITD, CRP, ESR #### [facility] [address], [place] [id number] (RBC) [Entitic vol]92 wMSbukrz44-217Ldopxvid [facility] SpecialistComment on above:Performed By: #### CBCAD, LIPD, CMP, VITD, CRP, ESR #### [facility] [address], [place] [id number] (Bld) [#/Vol]0.5 10*3/uLNormal0.2-0.9NoAshtabula General Hospital SpecialistComment on above:Performed By: #### CBCAD, LIPD, CMP, VITD, CRP, ESR #### [facility] [address], [place] [id number]/100 WBC (Bld)7.7 %NormalSelect Medical Specialty Hospital [facility] [place] SpecialistComment on above:Performed By: #### CBCAD, LIPD, CMP, VITD, CRP, ESR #### [facility] [address], [place] [id number] (Bld) [#/Vol]3.1 10*3/uLNormal1.5-7.8NoAshtabula General Hospital SpecialistComment on above:Performed By: #### CBCAD, LIPD, CMP, VITD, CRP, ESR #### [facility] [address], [place] [id number]/100 WBC (Bld)48.3 %NormalSelect Medical Specialty [facility] [place] SpecialistComment on above:Performed By: #### CBCAD, LIPD, CMP, VITD, CRP, ESR #### [facility] [address], [place] [id number] mean volume (Bld) [Entitic vol]9.30 fLNormal 7.50-12.50NoAshtabula General Hospital SpecialistComment on above:Performed By: #### CBCAD, LIPD, CMP, VITD, CRP, ESR #### [facility] [address], [place] [id number] (Bld) [#/Vol]354 10*3/gENvafeu584-762Qwiwobef [facility] SpecialistComment on above:Performed By: #### CBCAD, LIPD, CMP, VITD, CRP, ESR #### [facility] [address], [place] [id number] (Bld) [#/Vol]4.35 10*6/uLNormal3.90-5.20NoAshtabula General Hospital SpecialistComment on above:Performed By: #### CBCAD, LIPD, CMP, VITD, CRP, ESR #### [facility] [address], [place] [id number]-ZN85.6 wSWefctt72.0-50.0NoAshtabula General Hospital Specialist Comment on above:Performed By: #### CBCAD, LIPD, CMP, VITD, CRP, ESR #### [facility] [address], [place] [id number] (Bld) [#/Vol]6.5 10*3/uLNormal3.8-11.0NoAshtabula General Hospital SpecialistComment on above:Performed By: #### CBCAD, LIPD, CMP, VITD, CRP, ESR #### [facility] [address], [place] [id number] Metabolic Panelon 05-63-5883Zztpxji [Mass/Vol] 4.1 g/dLNormal3.6-5.1NortherNewark Hospital SpecialistComment on above:Performed By: #### CBCAD, LIPD, CMP, VITD, CRP, ESR #### [facility] [address], [place] [id number]/Globulin [Mass ratio]1.6 {ratio}Normal1.0-2.5NoAshtabula General Hospital SpecialistComment on above:Performed By: #### CBCAD, LIPD, CMP, VITD, CRP, ESR #### [facility] [address], [place] [id number] [Catalytic activity/Vol]96 U/XGadxgw98-582Ispwaysu [facility] SpecialistComment on above:Performed By: #### CBCAD, LIPD, CMP, VITD, CRP, ESR #### [facility] [address] [facility] Hospitalenenc[place], [place] [id number] [Catalytic activity/Vol]22 U/LNormal6-33NoAshtabula General Hospital SpecialistComment on above:Result Comment: 01/09/2021 Female reference range changed.Performed By: #### CBCAD, LIPD, CMP, VITD, CRP, ESR #### [facility] [address] [facility] Hospital[facility]enc[facility], [place] [id number] gap [Moles/Vol]15 mmol/MOktyqi64-95Irnzrkmh [facility] SpecialistComment on above:Result Comment: Effective 02/14/2019 reference range changed.Performed By: #### CBCAD, LIPD, CMP, VITD, CRP, ESR #### [facility] [address], [place] [id number] [Catalytic activity/Vol]22 U/LNormal9-34NoAshtabula General Hospital SpecialistComment on above:Performed By: #### CBCAD, LIPD, CMP, VITD, CRP, ESR #### [facility] [address], [place] [id number]/CREA25 RatioHigh6-22NoAshtabula General Hospital Specialist Comment on above:Performed By: #### CBCAD, LIPD, CMP, VITD, CRP, ESR #### [facility] [address], [place] [id number] [Mass/Vol]10.1 mg/dLNormal8.6-10.2[facility] SpecialistComment on above:Performed By: #### CBCAD, LIPD, CMP, VITD, CRP, ESR #### [facility] [address] [place], [place] [id number] [Moles/Vol]104 mmol/PQoukiv87-208Xkmqkafb [facility] SpecialistComment on above:Performed By: #### CBCAD, LIPD, CMP, VITD, CRP, ESR #### [facility] [address] [facility] [place] [id number] [Moles/Vol]27 mmol/ULzdrxz72-13Nahtnvmk [facility] SpecialistComment on above:Performed By: #### CBCAD, LIPD, CMP, VITD, CRP, ESR #### [facility] [address], [place] [id number] [Mass/Vol]0.7 mg/dLNormal0.6-1.4Nortencompass [facility] rehabilitation [facility] [facility] SpecialistComment on above:Performed By: #### CBCAD, LIPD, CMP, VITD, CRP, ESR #### [facility] [address], [place] [id number] mL/min/1.11f7Rxgvrr>60NortMer[facility] Hospital SpecialistComment on above:Performed By: #### CBCAD, LIPD, CMP, VITD, CRP, ESR #### [facility] [address], [place] [id number] mL/min/1.30c5Lprquj>60[facility] SpecialistComment on above:Performed By: #### CBCAD, LIPD, CMP, VITD, CRP, ESR #### [facility] [address], [place] [id number] (S) [Mass/Vol]2.6 g/dLNormal1.9-3.7NortMercy Health Urbana Hospital SpecialistComment on above:Performed By: #### CBCAD, LIPD, CMP, VITD, CRP, ESR #### [facility] [address], [place] [id number] [Mass/Vol]90 mg/rNFnhilx45-98Buibpdxy [place] [facility] SpecialistComment on above:Result Comment: For FASTING Glucose --- ADA reference ranges: Normal 65-99 mg/dl Prediabetes 100-125 Diabetes >/= 126Performed By: #### CBCAD, LIPD, CMP, VITD, CRP, ESR #### [facility] [address], [place] [id number] [Moles/Vol]4.7 mmol/LNormal3.5-5.5[facility] [place] [facility] SpecialistComment on above:Performed By: #### CBCAD, LIPD, CMP, VITD, CRP, ESR #### [facility] [address], [place] [id number] [Mass/Vol]6.7 g/dLNormal6.1-8.1[facility] SpecialistComment on above:Performed By: #### CBCAD, LIPD, CMP, VITD, CRP, ESR #### [facility] [address], [place] [id number] [Moles/Vol]142 mmol/YKlrcvj398-595Cmbeeegs [place] [facility] SpecialistComment on above:Performed By: #### CBCAD, LIPD, CMP, VITD, CRP, ESR #### [facility] [address], [place] [id number]<0.3NormalNortMercy Health Urbana Hospital SpecialistComment on above:Performed By: #### CBCAD, LIPD, CMP, VITD, CRP, ESR #### [facility] [address], [place] [id number] nitrogen [Mass/Vol]18 mg/dLNormal7-25NortMer[facility] SpecialistComment on above:Performed By: #### CBCAD, LIPD, CMP, VITD, CRP, ESR #### [facility] [address], [place] [id number] Panelon 33-85-4371Cphwcpfvdjy [Mass/Vol]217 mg/dLHigh 125-200NoAshtabula General Hospital SpecialistComment on above:Result Comment: Low risk < 200mg/dL Borderline risk 201-239 mg/dl High risk > or equal to 240Performed By: #### CBCAD, LIPD, CMP, VITD, CRP, ESR #### [facility] [address], [place] [id number] in HDL [Mass/Vol]57 mg/dLNormal>40NoAshtabula General Hospital SpecialistComment on above:Result Comment: High Cardiovascular Risk HDL <40 mg/dL Low Cardiovascular Risk HDL > or equal to 60 mg/dlPerformed By: #### CBCAD, LIPD, CMP, VITD, CRP, ESR #### [facility] [address], [place] [id number] in LDL [Mass/Vol]134 mg/dLNormOhioHealth Grove City Methodist [facility] SpecialistComment on above:Result Comment: LDL ATP III CLASSIFICATION LDL less than 100 mg/dl Optimal LDL 100-129 mg/dl Near or above optimal LDL 130-159 Borderline high LDL 160-189 High LDL greater than 189 mg/dl Very HighPerformed By: #### CBCAD, LIPD, CMP, VITD, CRP, ESR #### [facility] [address], [place] [id number] in VLDL [Mass/Vol]26 mg/dLNorminNoAshtabula General Hospital SpecialistComment on above:Performed By: #### CBCAD, LIPD, CMP, VITD, CRP, ESR #### [facility] [address], [place] [id number].total/Cholesterol in HDL [Mass ratio]4 {ratio} NormalNoAshtabula General Hospital SpecialistComment on above:Performed By: #### CBCAD, LIPD, CMP, VITD, CRP, ESR #### [facility] [address], [place] [id number] [Mass/Vol]128 mg/uNQbjmnf88-522Lzzuprmf [place] [facility] SpecialistComment on above:Result Comment: TRIG ATPIII CLASSIFICATIONS TRIG less than 150 mg/dl Normal TRIG 150-199 mg/dl Borderline High TRIG 200-500 mg/dl High TRIG greather than 500 mg/dl Very HighPerformed By: #### CBCAD, LIPD, CMP, VITD, CRP, ESR #### [facility] [address], [place] [id number] Sedimentation Rateon 04-36-6441YYT (Bld) [Velocity]44.00 mm/hHigh0.00-20.00NoAshtabula General Hospital SpecialistComment on above:Performed By: #### CBCAD, LIPD, CMP, VITD, CRP, ESR #### [facility] [address], [place] [id number] D 25-OHon 76-77-9192UCY D 25 OH56 ng/mlNormal>29 [facility] SpecialistComment on above:Result Comment: Vitamin D Status Deficiency <20 ng/mL Insufficiency 20-29 ng/mL Optimal 30-100 ng/mL Possible Toxicity >=150 ng/mLPerformed By: #### CBCAD, LIPD, CMP, VITD, CRP, ESR #### [facility] [address] [place] [id number] RIGHT 2 VWSon 72-63-4979XYSAO RIGHT 2 VWSUniParkview Health Montpelier Hospital Department of Radiology [address] [place] [address] Patient Name: KEILA RICHARDSON : 1970 Sex: F Age: Race: White Pt. Location: Patient Status: O Ordered Date: 03/22/2021 2:25:00 PM Completed Date: 03/22/2021 02:22 PM Requesting Provider: CHARLY FARIAS Attending Provider: CHARLY FARIAS Report Copy To: Signs & Symptoms: S72.401A Unsp fracture of lower end of right femur, init for clos fx I10 History: Comments: Evaluate Exam: FEMUR RIGHT 2 VWS FEMUR RIGHT 2 S CLINICAL INFORMATION: ortho [...] osteopenia. Electronically signed: German Gamble. Transcribed by: [id number], User Resident: Electronically Signed by: GERMAN GAMBLE @ 03/22/2021 03:08 [facility] FoundationComment on above:Order Comment: EvaluateFEMUR RIGHT 2 Son 77-28-5603RXBMP RIGHT 2 SUniParkview Health Montpelier Hospital Department of Radiology [address] [place] [id number] Patient Name: KEILA RICHARDSON : 1970 Sex: F Age: Race: White Pt. Location: Patient Status: D Ordered Date: 01/18/2021 2:20:00 PM Completed Date: 01/18/2021 02:26 PM Requesting Provider: CHARLY FARIAS Attending Provider: CHARLY FARIAS Report Copy To: Signs & Symptoms: S72.401A Unsp fracture of lower end of right femur, init for clos fx I10 History: Sheila Comments: Evaluate Exam: FEMUR RIGHT 2 S [...] ORIF Electronically signed: Moncho Beyer. Transcribed by: [id number], User Resident: Electronically Signed by: MONCHO BEYER @ 01/20/2021 05:57 [facility] FoundationComment on above:Order Comment: EvaluateXR femur RT 2V* on 52-64-4166WF femur RT 2V*[facility] [email or web address] Other XR femur RT 2V*[facility] Main [facility] [email or web address] Other XR femur RT 2V*[address] [place] [address] [email or web address] Other XR femur RT 2V*[place], [place] [address]Isesn [email or web address] Other XR femur RT 2V*[place]French [place] [email or web address] Other XR femur RT 2V*SignedFrench [place] [email or web address] Other XR femur RT 2V*Patient: Keila Richardson MR#: [id number] [place] [email or web address] Other XR femur RT 2V*[address] [place] [address] [email or web address] Other XR femur RT 2V*: 1970 Acct:[id number] [email or web address] Other XR femur RT 2V*Age/Sex: 50 / F ADM Date: 11/16/20[place] [email or web address] Other XR femur RT 2V*Loc: [facility] Room: Type: [facility] [email or web address] Other XR femur RT 2V*Attending Dr: Shaina Arellano MDFrench [place] [email or web address] Other XR femur RT 2V*Ordering Provider: Shaina Arellano MD [place] [email or web address] Other XR femur RT 2V*Date of Service: 11/16/20[place] [email or web address] Other XR femur RT 2V* XR/XR femur RT 2V*: Other closed fracture of distal end of right femurFrench [place] [email or web address] Other XR femur RT 2V*with [facility] [email or web address] Other XR femur RT 2V*Copies to: Shaina Arellano MDFrench [place] [email or web address] Other XR femur RT 2V*Right femur 11/16/2020.[employer] Other XR femur RT 2V*CLINICAL DATA: Follow-up right femur fracture repair.[employer] Other XR femur RT 2V*FINDINGS: 2 views of the right femur were obtained and are compared with a prior study 10/05/2020.[employer] Other XR femur RT 2V*There is redemonstration of postsurgical changes related to internal fixation of a fracture of [facility] [email or web address] Other XR femur RT 2V*distal shaft of the femur with a hip screw and long intramedullary lópez as well as cerclage wires.[employer] Other XR femur RT 2V*Both fixation screws at the distal end of the intramedullary lpóez are now broken. Overall bonyNocrittenton behavioral health [email or web address] Other XR femur RT 2V*alignment, however, appears relatively stable. The patient is status post total knee arthroplasty.[employer] Other XR femur RT 2V*The intramedullary lpóez has moved distally and is now closer to the femoral implant than before.[employer] Other XR femur RT 2V* XR/XR femur RT 2V* [employer] Other xr femur RT 2V*IMPRESSION: Findings as describedNoBoardEvals Other XR femur RT 2V*Impression dictated by: Kashif Villalobos Jr., M.D.11/16/2020 2:43 [facility] [employer] Other XR femur RT 2V*Dictation Location: LKWJM-[id number] [employer] Other XR femur RT 2V*Transcribed By: [facility] 11/16/[address] [place] [address] [employer] Other XR femur RT 2V*Dictated By: Kashif Villalobos Jr, MD 11/16/[address] [place] [address] [employer] Other XR femur RT 2V*Signed By:[facility] [employer] Other XR femur RT 2V*11/16/[address] [place] [address] [employer] Other Vital Signs Date TimeVital SignValuePerforming HwvafqdqkOducquze72-59-9408 09:15-0400Body .1 cmEmily Oleary MD Work Phone: [facility]10-31-2025 09:15-0400Body mass index (BMI) [Ratio]40.65 kg/k1HqzmzzEmily Oleary MD Work Phone: [facility]10-31-2025 09:15-0400Body .36 kgEmily Oleary MD Work Phone: [facility]10-31-2025 09:15-0400Diastolic blood jjqpuqpv63 mm[Hg]Emily Oleary MD Work Phone: [facility]10-31-2025 09:15-0400Systolic blood mm[Hg]Emily Oleary MD Work Phone: [facility]10-16-2025 14:11-0400Body .8 Erika Alvarez MD Work Phone: [facility] HospitalYlrpqufpgv88-97-3488 14:11-0400Body mass index (BMI) [Ratio]39.75 kg/i7YdcbqMaribell Alvarez MD Work Phone: 1([phone] [place], [place] [address]Kyvlcbvclt60-51-5689 14:11-0400Body ugyqas287.65 kgMaribell Alvarez MD Work Phone: [facility] HospitalVrlvbmircb98-53-5843 14:11-0400Diastolic blood xipyfdol79 mm[Hg]Maribell Alvarez MD Work Phone: 1(011)583-[address] [place], [place] [address]Erosynpotw92-39-1558 14:11-0400Heart rate94 /min Maribell Alvarez MD Work Phone: 1([phone])931-[address] [place], [place] [address]Ksqmsdbdvq55-48-1262 14:11-6495CrR3% (BldA) [Mass fraction]98 %Maribell Alvarez MD Work Phone: 1(504)772-[address] [place], [place] [address]Bewgiklyaj79-30-7832 14:11-0400Systolic blood djtutpnj975 mm[Hg]Maribell Alvarez MD Work Phone: 1([phone])947-[address] [place], [place] [address]Zmnvlbslav04-39-4634 15:00-0400Body ezhcgj536.1 cmEmily Oleary MD Work Phone: [phone]-[facility]06-25-2025 15:00-0400Body mass index (BMI) [Ratio]38.36 kg/u9ToredzEmily Oleary MD Work Phone: [facility]06-25-2025 15:00-0400Body kgosmg608.02 kgEmily Oleary MD Work Phone: [facility]06-25-2025 15:00-0400Diastolic blood qlxxtide55 mm[Hg]Emily Oleary MD Work Phone: [facility]06-25-2025 15:00-0400Heart rate 80 /minEmily Oleary MD Work Phone: [facility]06-25-2025 15:00-0400Systolic blood mlaeplsx309 mm[Hg]Emily Oleary MD Work Phone: [facility]05-05-2025 12:57-0400Body ixotwc116.[address] [place], [place] 5456805-05-2025 12:57-0400Body mass index (BMI) [Ratio]37.49 kg/k9Skscl [address] [place], [place] 5456805-05-2025 12:57-0400Body .[address] [place], [place] 5456804-01-2025 10:00-0400Body height 177.8 cmEmily Oleary MD Work Phone: [facility]04-01-2025 10:00-0400Body mass index (BMI) [Ratio]37.91 kg/k6NkxvzpEmily Oleary MD Work Phone: [facility]04-01-2025 10:00-0400Body muymga355.84 kgEmily Oleary MD Work Phone: [facility]04-01-2025 10:00-0400Diastolic blood mm[Hg]Emily Oleary MD Work Phone: [facility]04-01-2025 10:00-0400Heart rate 87 /minEmily Oleary MD Work Phone: [facility]04-01-2025 10:00-0400Systolic blood sxcgorfg713 mm[Hg]Emily Oleary MD Work Phone: [facility]01-31-2025 10:23-0500Body bixndh877.[address]01-31-2025 10:23-0500Body mass index (BMI) [Ratio]37.04 kg/x1Fqcdp[address]01-31-2025 10:23-0500Body .49 [degF][address]01-31-2025 10:23-0500Body [address]01-31-2025 10:23-0500Diastolic blood eohihquf49 mm[Hg][address]01-31-2025 10:23-0500Heart rate 81 /minRockland Psychiatric Centerro [address] [place], [place] 7295201-31-2025 10:23-0500Respiratory rate16 /minMetro [address] [place], [place] 7295201-31-2025 10:23-9450CkL6% (BldA) [Mass fraction]99 %[address]01-31-2025 10:23-0500Systolic blood ykpfnhuw086 mm[Hg][address]01-23-2025 09:07-0500Body mass index (BMI) [Ratio]36.7 kg/m2Leah Murphyey PA Work Phone: [facility] HospitalVranvpbhfa16-78-7745 09:07-0500Body .03 kgAmy Ab PA Work Phone: [facility] HospitalZobplcbaeo37-23-6296 09:07-0500Diastolic blood crpeqigk19 mm[Hg]Leah Milan PA Work Phone: [facility] HospitalAffafboknm76-64-0555 09:07-0500Systolic blood sxtbveuy435 mm[Hg]Leah Murphyey PA Work Phone: [facility] HospitalMbfswhdlcm26-18-8170 11:38-0500Body mass index (BMI) [Ratio]37.91 kg/b8Mrjmqsbml Romp PA Work Phone: [facility]01-03-2025 11:38-0500Body alompizwomu29.3 [degF]Hilda Romp PA Work Phone: [facility]01-03-2025 11:38-0500Body tqsvum164.84 kgKatherine Romp PA Work Phone: [facility]01-03-2025 11:38-0500Diastolic blood kwnegdqi04 mm[Hg]Hilda Romp PA Work Phone: [facility]01-03-2025 11:38-0500Heart rate 88 /minKatherine Romp PA Work Phone: [facility]01-03-2025 11:38-0500Systolic blood briotulo195 mm[Hg]Hilda Romp PA Work Phone: [facility]01-03-2025 10:40-0500Body qbwvod836.8 cmEmily Oleary MD Work Phone: [facility]01-03-2025 10:40-0500Body mass index (BMI) [Ratio]37.82 kg/s7VoutxhEmily Oleary MD Work Phone: [facility]01-03-2025 10:40-0500Body ygdtou794.57 kgEmily Oleary MD Work Phone: [facility]01-03-2025 10:40-0500Diastolic blood oeswurow32 mm[Hg]mEily Oleary MD Work Phone: [facility]01-03-2025 10:40-0500Systolic blood vagelopq514 mm[Hg]Emily Oleary MD Work Phone: [facility]11-06-2024 14:29-0500Body gxdugm971.1 cmEmily Oleary MD Work Phone: [facility]11-06-2024 14:29-0500Body mass index (BMI) [Ratio]37.2 kg/h1CsambiEmily Oleary MD Work Phone: [facility]11-06-2024 14:29-0500Body uzreae016.3 kgEmily Oleary MD Work Phone: [facility]11-06-2024 14:29-0500Diastolic blood wdxirtwe04 mm[Hg]Emily Oleary MD Work Phone: [facility]11-06-2024 14:29-0500Heart rate 80 /minEmily Oleary MD Work Phone: [facility] HospitalComment on above:28g418-72-2584 14:29-0500Respiratory rate16 /minEmily Oleary MD Work Phone: [facility]11-06-2024 14:29-0500Systolic blood jhmnisrw419 mm[Hg]Emily Oleary MD Work Phone: [facility]10-16-2024 08:42-0400Body wppagb946.8 Peggy Berger PA Work Phone: [facility] HospitalCqsqcmvkqk42-82-9603 08:42-0400Body mass index (BMI) [Ratio]37.88 kg/m2Amy Milan PA Work Phone: 1([phone] [place], [place] [address]Gbbqoefjmm03-64-2173 08:42-0400Body asdjvb566.75 kgAmy Ab PA Work Phone: [phone])898-[facility] HospitalOcntfsbhmp34-76-1195 08:42-0400Diastolic blood dpcabjhb16 mm[Hg]Leah Berger PA Work Phone: [phone])996-[facility]1University HospitalKnltqnggdq99-92-5446 08:42-0400Systolic blood mm[Hg]Leah Murphyey PA Work Phone: [phone] [place], [place] [address]Ggorizozmn64-89-2713 11:07-0400Body mass index (BMI) [Ratio]40.09 kg/m2Amy Milan PA Work Phone: [phone] [place], [place] [address]Ilkxqyceyg55-61-6686 11:07-0400Body rmeqfj197.73 kgAmy Milan PA Work Phone: [phone])363-[facility]1University HospitalWtxixfsefk75-97-9780 11:07-0400Diastolic blood losgdkfd53 mm[Hg]Leah Murphyey PA Work Phone: 1(765)880-[address] [place], [place] [address]Uewsejllic43-97-8226 11:07-0400Systolic blood mm[Hg]Leah Milan PA Work Phone: 1(031)524-[address] [place], [place] [address]Skrpjgleit63-02-3273 10:04-0400Body qerghr453.34 cmMD Maribell Ashton Work Phone: [facility]08-29-2024 10:04-0400 Body mass index (BMI) [Ratio]38.9 kg/m2MD Rugen Ashton Work Phone: [facility]08-29-2024 10:04-0400 Body alrzkn161.55 kgMD Maribell Alvarez Work Phone: [phone]07-18-2024 02:46-0400 Body tvuwxgnhtjm00 [degF]MD Maribell Alvarez Work Phone: [phone]07-18-2024 02:46-0400 Diastolic blood nofskmom18 mm[Hg]MD Maribell Alvarez Work Phone: [phone]07-18-2024 02:46-0400 Heart rate69 /minMD Maribell Alvarez Work Phone: [phone])[address]07-18-2024 02:46-0400 Respiratory rate17 /minMD Maribell Alvarez Work Phone: [phone] [address]07-18-2024 02:46-0400 SaO2% (BldA) [Mass fraction]96 %MD Maribell Alvarez Work Phone: [phone]07-18-2024 02:46-0400 Systolic blood mahigfap253 mm[Hg]MD Maribell Alvarez Work Phone: [phone]07-17-2024 21:10-0400 Body .34 cmMD Maribell Alvarez Work Phone: [phone])[address]07-17-2024 21:10-0400 Body xcaedg019.8 kgMD Maribell Alvarez Work Phone: [phone] [place], [place] [address]10-08-2021 12:15-0400 Body .34 cmCollremigio Arellano Other [employer] Other 10-08-2021 12:15-0400Body mass index (BMI) [Ratio] 27.05 kg/w7Bmbzmsuremigio Arellano Other [employer] Other 10-08-2021 12:15-0400Body kgCoremigio Arellano Other Nort [email or web address] Other Encounters Encounter DateEncounter TypeCare ProviderFacilityStart: 12-12-2024 End: 77-64-7318qyhzmsmeknVXUWUY SHENDGEUniversity [facility] Mainlandtart: 12-09-2024 End: 53-62-8368cveffmwrtrQAUHQJ C KASSISZanesville City Hospitaltart: 12-09-2024 End: 21-28-0357Byxumr outpatient visit 15 minutesEmily Oleary MD Work Phone: [facility] Comment on above:Mixed stress and urge urinary incontinence (Primary Dx); OAB (overactive bladder); Acute cystitis without hematuriaStart: 12-08-2024 End: 62-85-7162Aydscdlam encounterMaribell Alvarez MD Work Phone: NORX Mocinthia Siddiqui MedinceComment on above:FYIStart: 75-96-6132ltmrbnzoaiYWDMUE SHENDGEUniversity [facility] Mainlandtart: 62-80-7916Tdhlhfbsz for other preprocedural examinationVITHAL SHENDGEUniversity [facility] Mainlandtart: 12-07-2024 End: 34-71-6808tsvprrgdjqOTPJXM SHENDGEUniversity [facility] Mainlandtart: 11-24-2024 End: 63-92-2257Ikycew Catalino Alvarez MD Work Phone: [facility]oms [facility] MedinceStart: 11-24-2024 End: 30-03-8398Iaofgtrex Alvarez MD Work Phone: [facility] MedinceStart: 11-24-2024 End: 92-08-1646Wxhltq outpatient visit 25 minutesMaribell Alvarez MD Work Phone: NOUF Mo Siddiqui MedinceComment on above:Pre- operative clearance (Primary Dx)Start: 11-24-2024 End: 46-61-1268Taxmwcearjbe Michelle Alvarez MD Work Phone: [facility] Work Phone: Start: 11-24-2024 End: 74-97-6092zgecjccgldPBZNX M ALDANot AvailableStart: 11-16-2024 End: 01-94-5974wwgoemoprwCKTODD SHENEUniKing's Daughters Medical Center Ohiotart: 10-05-2024 End: 94-21-2077kgbcpiaumvTLLSESP A BURNSOhioHealth Dublin Methodist Hospitalca San [facility] HospitalStart: 08-03-2024 End: 44-11-4022Pggiko follow up visit related to original Rissa Oleary MD Work Phone: [facility] - UrogynComment on above:Postoperative visit (Primary Dx)Start: 08-03-2024 End: 28-38-1752yehzqsobfsOGPZCF C KASSISProMedica [facility] PPGStart: 06-21-2024 End: 99-48-9675Jandvficca and management of inpatientNADINE C KASSISProMedica Ferdinand HospitalStart: 06-13-2024 End: 34-19-9455Dywzrdvhk to [facility] hospitalMet Pat Phone Call Provider 1 Tarah Pollock [facility]art: 06-13-2024 End: 69-84-4533Fsktdyuwiv and management of inpatientMARIBELL GOFFAProMedica Ferdinand HospitalStart: 06-09-2024 End: 99-44-5594Iyuwuvlkm encounterEmily Oleary MD Work Phone: [facility] Start: 05-10-2024 End: 87-81-0074zsxdzcrbetWTKUMF C KASSISProMedica [facility] HospitalStart: 05-10-2024 End: 27-20-0820Xpmncx outpatient visit 25 minutesEmily Oleary MD Work Phone: [facility] Comment on above:Mixed stress and urge urinary incontinence (Primary Dx); Postural urinary incontinence; OAB (overactive bladder); RectoceleStart: 03-30-2024 End: 61-49-3022Jogvonmpgxelz procedureLindsisabel Sandoval [facility] Physicians Surgical OncologyStart: 03-30-2024 End: 66-65-0158kgerbodmrgDNVJF M ALDAProMedChildren's Hospital for Rehabilitation HospitalStart: 03-17-2024 End: 65-99-2772Vuzodhpzwm and management of inpatientJESSICA A BURNSProMedica Ferdinand HospitalStart: 03-11-2024 End: 03-36-0226psndkoajduZWRXX B JACKSONProMedica Ferdinand HospitalStart: 03-11-2024 End: 28-33-3150lhfzfkcdtdPTLQEIA A BURNSProKettering Health Miamisburgca Ferdinand HospitalStart: 30-13-3646Vgsfmfsqx for other preprocedural examinationJESSICA [facility] Hospitalca Ferdinand HospitalStart: 03-11-2024 End: 48-85-3166Zwgzctf encounter procedureMetro [facility] Provider [address] [place] [address] Pre-Admission [facility] On [facility] ParkwayComment on above:Pre-op testing (Primary Dx)Start: 03-11-2024 End: 68-22-2854Ucbzpmq encounter statusMetro [address] [place] [address] SystemStart: 03-03-2024 End: 05-75-1812Fgwxgirex WARREN Work Phone: noMS BCP OBStart: 03-03-2024 End: 00-85-0987Zcolhz Kathi WARREN Work Phone: noMS BCP OBStart: 03-03-2024 End: 73-44-7586xhhvojuzojVJP RAMEYNot AvailableStart: 03-03-2024 End: 04-03-1657Dhsglv outpatient visit 15 minutesLeah WARREN Work Phone: [facility] BCP OBComment on above:Encounter for weight managementStart: 33-94-3217vxghjqbeemERVUR M [facility] PPGStart: 02-12-2024 End: 31-03-2614Pmgbhp outpatient new 45 minutesHilda WARREN Work Phone: [facility] Surgical OncologyComment on above:Lesion of breast (Primary Dx); Abnormal finding on breast imagingStart: 02-12-2024 End: 16-41-9704inprjfhxfpRXVVCGLAPMercy Health Lorain Hospitaltart: 02-12-2024 End: 84-16-9148Yperis outpatient visit 15 minutesEmily Oleary MD Work Phone: [facility] - Urogynecology Comment on above:OAB (overactive bladder) (Primary Dx); Mixed stress and urge urinary incontinence; Postural urinary incontinence; Cystocele with rectoceleStart: 12-18-2023 End: 75-57-1306Sydqgq OnlyAmmy Guido [facility] Physicians Pelvic Health - UrogynecologyComment on above:OAB (overactive bladder) (Primary Dx)OAB (overactive bladder)Start: 12-17-2023 End: 14-33-6888Rhxbydxlr encounterAmmy Guido [facility] - UrogynecologyStart: 12-16-2023 End: 81-82-0884Rpwihs outpatient new 45 minutesEmily Oleary MD Work Phone: [facility] Pel[facility] Health - UrogynComment on above:Mixed stress and urge urinary incontinence (Primary Dx); Postural urinary incontinence; Cystocele with rectocele; OAB (overactive bladder)Start: 12-16-2023 End: 49-98-8023aaktzwqyhkPYVTGR C [facility] Ambulatory PPGStart: 11-25-2023 End: 22-50-2908Abqmhx Kathi WARREN Work Phone: [facility] OBStart: 11-25-2023 End: 40-09-8598Nobzdv Kathi WARREN Work Phone: noMS [facility] OBStart: 11-25-2023 End: 88-62-9786Kkktem outpatient visit 5 minutesLeah WARREN Work Phone: [facility] OBComment on above:Encounter for weight managementStart: 11-12-2023 End: 21-15-8703Qazgm Miguelina Sykes [facility] Pel[facility] Health - UrogynecologyStart: 11-12-2023 End: 13-48-3335Gdofdzvvj Result EncounterAmy Ab WARREN Work Phone: noms External Department UnsolicitedStart: 11-12-2023 End: 98-13-1420Mbpsaqagc Result EncounterAmy Ab WARREN Work Phone: noms External Department UnsolicitedStart: 11-12-2023 End: 69-25-2219klnjemimbsYhn L RameyFacility:[facility] Start: 11-12-2023 End: 10-19-6820Vnbbwoay ReferredMD Maribell Antonio Work Phone: [facility]LAB [facility] Spec [facility]ospStart: 11-04-2023 End: 60-19-5953Qhrvdzwjx Result EncounterAmy Ab WARREN Work Phone: noms External Department UnsolicitedStart: 11-04-2023 End: 10-59-7112Qbujkygrk Result EncounterAmy Ab WARREN Work Phone: noms External Department UnsolicitedStart: 10-26-2023 End: 00-76-6147Jgakuw flowsheetLeah Berger PA Work Phone: noMS BCP OBStart: 10-26-2023 End: 96-95-7002Bagfqu flowsDhruv WARREN Work Phone: noms BCP OBStart: 10-26-2023 End: 26-68-2301Hnjxoz outpatient visit 15 minutesAmy Ab WARREN Work Phone: NOMS BCP OBComment on above:Encounter for weight management; Follow-up examStart: 10-08-2023 End: 96-80-4637hioeedivfxXM Hugoen M Antonio Work Phone: [facility] Work Phone: Start: 10-08-2023 End: 06-80-5962Vhykerh encounter procedureMD Maribell Ashton Work Phone: [facility] Work Phone: Start: 10-06-2023 End: 85-62-6556Oosedzu encounter procedureMD Maribell Antonio Work Phone: [facility]-MRI [address] Work Phone: Start: 10-06-2023 End: 72-80-7154aglcpgqptwOY Maribell Marcus Ashton Work Phone: [facility] Work Phone: Start: 10-02-2023 End: 49-15-8668Hvkndvbzz Result EncounterAmy Ab PA Work Phone: noms External Department UnsolicitedStart: 10-02-2023 End: 03-87-6273Vhganlbpi Result EncounterAmy Ab PA Work Phone: noms External Department UnsolicitedStart: 10-01-2023 End: 10-60-7896Eskzqobkd Result EncounterAmy Milan PA Work Phone: noms External Department UnsolicitedStart: 10-01-2023 End: 11-24-6651Jbnvaugvg Result EncounterAmy Ab PA Work Phone: noms External Department UnsolicitedStart: 09-28-2023 End: 76-79-1356Rnahbawly Result EncounterAmy Milan PA Work Phone: noms External Department UnsolicitedStart: 09-28-2023 End: 16-36-9784Fxdszedcu Result EncounterAmy Ab PA Work Phone: noms External Department UnsolicitedStart: 09-08-2023 End: 87-58-7705kspmhptkhnOD Maribell Marcus Antonio Work Phone: [facility] Work Phone: Start: 09-08-2023 End: 44-14-8777Iusuglt encounter procedureMD Maribell Antonio Work Phone: [facility] Work Phone: Start: 09-08-2023 End: 44-28-5379Iutrhbh encounter procedureMD Maribell Antonio Work Phone: [facility] Start: 09-08-2023 End: 56-28-0057yyaeurefnmUE Maribell M Ashton Work Phone: [facility] Work Phone: Start: 08-31-2023 End: 54-23-8948kclsyulddgGC Maribell M Ashton Work Phone: [facility] Work Phone: Start: 08-31-2023 End: 42-97-9060Rewtitp encounter procedureMD Hugoen Antonio Work Phone: [facility] Work Phone: Start: 08-26-2023 End: 30-57-6048Apqateifn department patient visitMD Maribell Ashton Work Phone: [facility]-Emergency Room Work Phone: Start: 63-11-4036Yuddhzt encounter procedureLeah WARREN Work Phone: [facility] HealthcareStart: 80-21-0933ytlbwsgylrQyzvm M. Lue Facility:EU [place]kyStart: 01-28-2022 End: 92-80-4348ybxswaxfcsUK RUGEN ALDAFacility:E8Yompf: 01-23-2022 End: 40-50-4937atbezkqlofSSGC SOLISFacility:Q8Yypxo: 93-03-6667Mdbruvabh for preprocedural laboratory examinationDR DOCTOR MISCThe [facility] Westtart: 11-25-2021 End: 01-87-7585wywwoqomftQK DOCTOR MISCFacility:Y2Ivfmk: 11-25-2021 End: 30-90-4032Mbnmyjwmk for preprocedural laboratory examinationDR DOCTOR MISC Facility:P4Lcuqo: 11-04-2021 End: 15-71-0748vfgcirqyicUD RUGEN ALDAFacility:I7Tnqrd: 10-29-2021 End: 38-95-6602ioetastyghZZWB SOLISFacility:S9Ijkyc: 10-29-2021 End: 24-67-5655tzjqfcwishZJ DOCTOR MISCFacility:A6Eoved: 17-92-7609gdzpnfhxwhWL RUGEN ALDAFacility:O3Krdby: 07-02-2021 End: 78-21-0628ajryzzlwvtQY MO S KUMARFacility:E3Qdvnr: 03-27-2021 End: 79-10-8029zuzhgnxvomNtzphyi Calvey Other [employer] Other Start: 65-72-8800Ujseayvqk encounterColleen CalveyFPG [facility] OrthopedicsStart: 03-26-2021 End: 96-96-7724iwqjlvvpsfLT MO S KUMARFacility:H1Bapee: 02-26-2021 End: 96-25-5041pqaecutxnaUnbujkx Calvey Other [employer] Other Start: 04-17-7078Txmtykzri encounterColleen CalveyFPG [facility] OrthopedicsStart: 12-19-2020 End: 51-13-6017adequyumfiZucnica Calvey Other [employer] Other Start: 46-21-4413Zzwvqadtj encounterColleen CalveyFPG [facility] OrthopedicsStart: 12-17-2020 End: 33-03-2021qowyrzjpkbGzvjhhm Calvey Other [employer] Other Start: 06-40-5291Pdprvfrmn encounterColleen CalveyFPG Referral CoordinatorStart: 18-16-3226Rfxvjh outpatient visit 25 minutesColleen CalveyFPG [facility] OrthopedicsStart: 51-10-9353Rxwlceuph encounterColleen Calvey FPG [facility] OrthopedicsStart: 88-93-9524Imtbwmvby encounterColleen CalveyFPG [facility] OrthopedicsStart: 78-78-9943Qutbqvksn encounterColleen [facility] OrthopedicsStart: 73-53-5222Fcfkoa outpatient visit 25 minutesColleen [facility] Procedures DateProcedureProcedure DetailPerforming ClinicianStart: 10-40-0201Crcnm count hematocritBrandmarely Saleh MD Work Phone: Start: 51-33-7019Omfaxy-up visitFollow-upEMILY OLEARYStart: 67-88-4661Lnfos depression screening assessmentEmily Oleary MD Work Phone: Start: 60-70-8081VUSGUGU POST VOID RESIDUALEmily Oleary MD Work Phone: Start: 30-80-6719Xxbqr dip stick/tablet rgnt non-auto w/o micrscpNadine Dimple Oleary MD Work Phone: Start: 20-68-3985UWRLL POST BIOPSY RIGHTLeah WARREN Work Phone: Start: 72-50-3870GA VAC ASST BX BREAST RT W CLIPLeah WARREN Work Phone: Start: 49-60-2782Qd breast uni real time with image limitedLeah WARREN Work Phone: Start: 11-04-2023 End: 26-90-1773NaijjclwozuClq Ramey PA Work Phone: Start: 15-11-6357DYA of right shoulderMD Rugen Ashton Work Phone: Start: 49-11-8966GT DEXA AXIAL SKELETONLeah WARREN Work Phone: Start: 94-33-7773HB TOMOSYNTHESIS SCREENING BILeah WARREN Work Phone: Start: 06-26-2850HjystkovhyaJsg Ramey PA Work Phone: Start: 69-79-9836AWK,APTIMA HPV,AGE GDLNLeah WARREN Work Phone: Start: 68-38-5552Jwxuu X-ray of right shoulderMD Rugen Ashton Work Phone: Start: 90-30-9484HT cervical spine without contrastMD Rugen Ashton Work Phone: Start: 84-54-6052KF of chest without contrastMD Rugen Antonio Work Phone: Start: 05-35-6274Pdejse X-rayMD Rugen Antonio Work Phone: Start: 28-35-1505Azqyj X-ray of right femurMD Rugen Ashton Work Phone: Start: 09-04-7347Utgot X-ray of right humerusMD Rugen Ashton Work Phone: Start: 50-32-8431Zgkyf X-ray of right shoulderMD Rugen Antonio Work Phone: Start: 29-97-1252Irvanaui screenComment on above: Performed By: #### [id number] ####[address] Plan of Treatment DateCare ActivityDetailAuthorStart: 58-87-6114Pqecaxujs for malignant neoplasm of colonNOMS HealthcareStart: 18-96-8122Licvmpj ScreeningTobacco Screening [facility] SystemStart: 69-43-6419Tnywl BMI ScreeningAdult BMI Screening [facility] SystemStart: 35-72-4523Zwgskoz ScreeningTobacco Screening [facility] SystemStart: 72-32-9343Faqbz BMI ScreeningAdult BMI Screening [facility] SystemStart: 41-39-5799Xgsyc BMI ScreeningAdult BMI Screening [facility] SystemStart: 41-37-0330Xvsrqam ScreeningTobacco Screening [facility] SystemStart: 85-95-0057Erzmt BMI ScreeningAdult BMI Screening [facility] SystemStart: 54-04-1304Cyxssym ScreeningTobacco Screening [facility] SystemStart: 73-45-8605Fpdrx BMI ScreeningAdult BMI Screening [facility] SystemStart: 91-67-9014Omqvexrvsg ScreeningDepression Screening [facility] SystemStart: 96-90-8448Xiacxgd ScreeningTobacco Screening [facility] SystemStart: 12-01-2283Eodyugv ScreeningTobacco Screening [facility] SystemStart: 99-15-6388Uhrxt BMI ScreeningAdult BMI Screening [facility] SystemStart: 19-27-5812Ksehtmp ScreeningTobacco Screening [facility] Hospitaltart: 11-24-2024 End: 05-16-1459Roxyxpn encounter fdtiorbsb20/16/2025 2:00 PM EDT Office Visit [facility] [address] [facility] [address] [place] [phone] Maribell Alvarez MD [address] [facility] [address] [place] [address] ArrivedNOMS Mo [facility] MedinceComment on above:ArrivedStart: 28-88-8613Tcaqdhlgk for malignant neoplasm of breast MammogramNOMS HealthcareStart: 96-57-5064ENUPS-19 Vaccine ( season) COVID-19 Vaccine ( season)NOM HealthcareStart: 21-98-1681Xeldbzojn vaccinationOhioHealth Nelsonville Health Center SystemStart: 10-01-2024 End: 52-07-1482DEA Breast - bilateral screeningMammography screening bilateral with CAD Imaging Routine Encounter for screening mammogram for breast cancer Expected: 10/01/2024, Expires: 03/30/2025[facility] Work Phone: Comment on above:Expected: 10/01/2024, Expires: 03/30/2025Start: 17-78-6223Duqkpjgop for malignant neoplasm of breastMammogram [facility]S HealthcareStart: 08-05-2024 End: 82-00-5628Rworimc encounter iagdjeemm73/27/2025 11:45 AM EDT Office Visit [facility] [address] [place] [address] Emily Oleary MD [address] [place] [address] [facility] Pelvic Health - UrogynecologyStart: 06-21-2024 End: 51-95-9792Phffdhbpa to same day surgery anbrjl7406/21/2024 10:30 AM EDT - 06/21/2024 12:30 PM EDT Surgery [facility] Surgery [address] [address] Emily Oleary MD [address] [facility] [address] [place] [address] VAGINAL POSTERIOR COLPORRAPHY REPAIR [58673 (CPT )][facility] - SurgeryComment on above:VAGINAL POSTERIOR COLPORRAPHY REPAIR [67780 (CPT )]Start: 06-21-2024 End: 68-40-2435Skschkkrvkkethung inj chemodenervation bladderCYSTOSCOPY INJECTION BOTOX RECTOCELE, MIXED URINARY INCONTINENCE 06/21/2024 10:30 AM EDT [facility] SUR[facility]ERYStart: 06-21-2024 End: 89-19-1735Ivza colporrhaphy rectocele w/wo perineorrhaphyVAGINAL POSTERIOR REPAIR RECTOCELE, MIXED URINARY INCONTINENCE 06/21/2024 10:30 AM EDTFAKRON [facility] SURGERYStart: 79-95-2753Dtnyhetwyk hospital visit by jdysvjkgy51/13/2025 10:30 AM EDT Hospital Encounter [facility] Surgery [address] [place] [phone] Emily Oleary MD [address] [facility] [address] [place] [address] [facility] SurgeryStart: 06-21-2024 End: 02-82-3475BKWMJWQZPZ VAGINASUSPENSION VAGINA RECTOCELE, MIXED URINARY INCONTINENCE 06/21/2024 10:30 AM [facility] SystemStart: 06-13-2024 End: 41-72-2370Wuphskxpp to yqrbreygdwlpa11/05/2025 2:45 PM EDT Support Visit [facility] [place] [address] [address] Start: 05-06-2024 End: 14-31-4185Ytgysur encounter opaneazlt52/28/2025 11:45 AM EDT Office Visit [facility] [address] [facility] [address] [facility] [place] [phone] Emily Oleary MD [address] [facility] [address] [place] [address] [facility] - UrogynecologyStart: 03-30-2024 End: 40-75-8882Fdlbpsr encounter /19/2025 11:30 AM EST Office Visit [facility] [address] [facility] [address] [address] [phone] Physicians Surgical OncologyStart: 03-17-2024 End: 51-78-5241Xkdixtamc to same day surgery vhdric4703/17/2024 10:30 AM EST - 03/17/2024 12:00 PM EST Surgery [facility] - Surgery [address] [place] [address] Yari Alan MD [address] [facility] [address] [facility] [place] [address] MAGNETIC SEED LOCALIZATION EXCISION/BIOPSY MASS BREAST [facility] - SurgeryComment on above:MAGNETIC SEED LOCALIZATION EXCISION/BIOPSY MASS BREASTStart: 03-17-2024 End: 40-43-9115DNUQUTPJ SEED LOCALIZATION EXCISION/BIOPSY MASS BREASTMAGNETIC SEED LOCALIZATION EXCISION/BIOPSY MASS BREAST BREAST LESION RIGHT 03/17/2024 10:30 AM [facility]: 42-82-6252Wlpwkdvnvf hospital visit by tnouyozpz40/06/2025 10:30 AM EST Hospital Encounter [facility] - Surgery [address] [place] [phone] Yari Alan MD [address] [place] [address] [facility] - SurgeryStart: 02-24-2024 End: 83-15-9597Rgljqnp encounter qkehcvphu73/15/2025 8:30 AM EST Office Visit [facility] [address] [place] [phone] Leah Berger PA [address] [facility] [place] [address] [facility] BCP OBStart: 02-12-2024 End: 10-12-7020Abymoub encounter cdnuccvlz79/03/2025 11:30 AM EST Office Visit [facility] [address] [address] Hilda Almaguer PA [address] [place] [address] [facility] Surgical OncologyStart: 02-12-2024 End: 83-11-6665Pjveomc encounter obntlezvo35/03/2025 10:15 AM EST Office Visit [facility] [address] [place] [address] Emily Oleary MD [address] [place] [address] [facility] - UrogynecologyStart: 12-16-2023 End: 14-81-4711Tcozspb encounter jydvkcota98/06/2024 2:30 PM EST Office Visit [facility] Urogyn [address] [facility] [address] [place] [address] Emily Oleary MD [address] [place] [address] [facility] - UrogynStart: 11-23-2023 End: 30-88-9247Mvuuqqk encounter ozxdgwidn84/14/2024 8:50 AM EDT Office Visit [facility] [address] [place] [address] Leah Berger PA [address] [facility] [address] [place], [place] [address] [facility]OMS BCP OBStart: 10-26-2023 End: 26-53-2669Cjlyugh encounter procedureNOMS BCP OBComment on above:Arrived Start: 67-84-4271CUKMU-19 Vaccine ( season)COVID-19 Vaccine ( season)[facility] SystemStart: 68-21-8383Xldkjxzrp vaccinationNOLA HealthcareStart: 31-09-2365Vjmdn X-ray of right shoulderXR shoulder RT min 2V* [facility]: 03-02-0264MS Shoulder - right Views [facility] Centertart: 49-73-8347WR cervical spine without contrastCT cervical spine wo [facility]art: 83-63-3234LR Cervical spine WO [facility]: 52-20-5755QL Chest WO [facility]: 08-26-2023 CT of chest without contrastCT chest wo [facility] Start: 50-19-2541Uawdor X-rayXR pelvis 1-2V[facility] Start: 29-05-5473Emgfq X-ray of right femurXR femur RT 2V*[facility]: 13-90-0776Yomep X-ray of right humerusXR humerus RT* [facility]: 72-12-2203Yurjy X-ray of right shoulder XR shoulder RT min 2V*[facility]: 10-13-1253XF Femur - right 2 ViewsCrystal Clinic Orthopedic Centertart: 83-88-3462WJ Humerus - right ViewsCrystal Clinic Orthopedic Centertart: 17-61-2886HB Pelvis 1 or 2 ViewsCrystal Clinic Orthopedic Centertart: 76-32-2975QV Shoulder - right Views [facility] Cent[facility]art: 28-08-8570ypvasdjuijKdcfbglrjn Facility:Q7Ztsim: 24-10-8964Nxhcuwjtslyaya of varicella zoster vaccineZoster (Shingles) Vaccine (1 of 2)[facility]: 04-20-8940Zgwnxyyyq for malignant neoplasm of cervixPap SmearVidant Pungo Hospitaltart: 05-24-1990 DTaP,Tdap and Td Vaccines (1 - Tdap)DTaP,Tdap and Td Vaccines (1 - Tdap) [facility]art: 55-10-2477Wastwdese B Vaccines (1 of 3 - 19+ 3- dose series)Hepatitis B Vaccines (1 of 3 - 19+ 3-dose series)[facility] Start: 69-73-8276Riiizigcrwde Vaccine: Pediatrics (0 to 5 Years) and At-Risk Patients (6 to 64 Years) (1 of 2 - PCV)Pneumococcal Vaccine: Pediatrics (0 to 5 Years) and At-Risk Patients (6 to 64 Years) (1 of 2 - PCV)[facility] HealthcareStart: 28-71-0326Isqux BMI Follow Up PlanAdult BMI Follow Up PlanOhioHealth Nelsonville Health Center SystemStart: 36-21-0429Kvgcj BMI ScreeningAdult BMI ScreeningOhioHealth Nelsonville Health Center SystemStart: 40-74-9595Awbdlfwdbp ScreeningDepression ScreeningVidant Pungo Hospitaltart: 73-84-5552Kgucjcy ScreeningTobacco ScreeningOhioHealth [facility]ville [facility] Start: 98-53-2197FEsX/Tdap/Td Vaccines (1 - Tdap)DTaP/Tdap/Td Vaccines (1 - Tdap)[facility] HealthcareStart: 51-35-1767DML Vaccines (1 of 1 - Standard series)MMR Vaccines (1 of 1 - Standard series)[facility] HealthcareStart: 71-72-4043Rgymfdmuz for malignant neoplasm of colonNOMS HealthcareMR Shoulder - right WO contrast [facility] HospitalPatient EducationRotator cuff injury Rib Fracture or Bruised Rib ED Shoulder Pain ED Opioids for Short-Term Treatment of Pain EDKind[facility] Work Phone: Patient referralKindred Hospital [facility]tr Work Phone: Immunizations Immunization DateImmunizationNotesCare IinbprznGuphenjq48-55-3235XWVLQ-31 Jeromy Castorena (Pfizer)MD Maribell Alvarez Work Phone: [facility]04-07-2021COVID-19 Jeromy Castorena (Pfizer)MD Maribell Alvarez Work Phone: [facility] Payers DatePayer CategoryPayerPolicy [id number] [facility] [id number] - O1.2.840.940720.1.13.424.2.7.9.649359.505.14752-09-4568Cnlcuap [id number] Managed Care HMO (unspecified)[facility] InsurityUN[facility] [id number] Health Insurance 1.2.840.664086.1.13.693.2.7.9.108495.954543.61342-70-0181Soglsmm 1.2.840.903846.1.13.693.2.7.3.486432.60786-68-2444UyasmfnT983859261460-21-6869 [id number] 2.0.1.856929.3.579.2.83426-16-5360Ktcpwjn8812866 2.0.1.205580.3.579.2.69991-69-2115Befqlvt1826014 2.0.1.371107.3.579.2.56945-55-9813Jydwxcn9878298 2.0.1.704508.3.579.2.07505-35-0875Nlsykkz8069166 2.0.1.871391.3.579.2.57542-19-8949Ctgjwtl9831368 2.0.1.785884.3.579.2.49872-41-8151Pbqtonv4617293 2.0.1.100959.3.579.2.91631-32-2361Nlvszym7354852 2.0.1.967743.3.579.2.20188-11-1429Qfrdxmd3956141 2.0.1.049844.3.579.2.51770-71-0044Gzumges7926644 2.0.1.926052.3.579.2.89517-64-3116Jcsdbtk291302362 2.840.1.493212.3.579.2.893352-36-3951Dfnkphg818285285 2.16.840.1.950116.3.579.2.818211-03-7807Pyiivrs901671537 2.16840.1.162017.3.579.2.031790-37-4458Kxwhwhm676280384 2.16840.1.411425.3.579.2.434893-08-5648Fpxcyiq025221473 2.16840.1.205282.3.579.2.908393-50-0990Jqwcycs576116314 2.840.1.040846.3.579.2.170122-15-6555Gaalwrr070280055 2.840.1.777783.3.579.2.809827-25-6526Elzbpgx781380066 2.840.1.167075.3.579.2.538706-05-8248Iyhidpp148003056 2.840.1.398360.3.579.2.515984-04-9870Zjdkene632494505 2.840.1.899863.3.579.2.250064-41-1168Ccuvfvx471973162 2.0.1.907486.3.579.2.663320-06-7168Gogezeh479673774 2.840.1.726454.3.579.2.221673-63-2949Hxgvrwx936397898 2.840.1.794632.3.579.2.527838-63-4496Vgifnau70556590 2.840.1.444454.3.579.2.359371-98-7607Kieaxua707379070 2.840.1.349424.3.579.2.626864-38-8295Ztilysh79536331 2.16.840.1.760186.3.579.2.047158-98-8771Acbluma9144332 2..1.638267.3.579.2.196022-79-7775Wlpdigz043606374 2.0.1.854205.3.579.2.517485-31-8634Chyvqqz213196160 2.0.1.869007.3.579.2.533666-44-3678Ihgidkj846279044 2.0.1.205551.3.579.2.746002-64-9650Ykiybxa574968277 2..1.180293.3.579.2.711523-83-6243Ambuwcy766263945 2.0.1.877331.3.579.2.6767Hpkfwjsr9973614211 2..1.470872.19Unknown [id number] 2abm5l67-0930-16o1-6h09-28660306a666Xjrhmqd10583956 2.840.1.848414.3.579.2.152Axflari21899156 2..1.831683.3.579.2.531 Cvhlpvv49238007 2..1.927872.3.579.2.792Mccaatb75702008 2..1.711748.3.579.2.531 Social History DateTypeDetailFacilityStart: 08-11-2023 End: 42-90-7942Iwo Assigned At BirthOhioHealth [facility] Center SystemStart: 08-26-2023 End: 79-21-2704Nxwyvkr smoking status NHISEx-smoker (finding)[facility]art: 87-90-5741Rjh Assigned At BirthVeterans Health Administrationtart: 94-02-4838Xrbruhz smoking status NHISNever smoked tobacco [facility] HealthcareStart: 08-06-2023 End: 85-36-2687Elkiacc use and exposureSmokeless tobacco non-userNOMS Healthcare Start: 08-11-2023 End: 35-28-0394Ysgwtkn of Social functionOhioHealth Nelsonville Health Center SystemStart: 50-97-1522Mkg assigned at birthNot on fileNOMS HealthcareStart: 02-09-1994 End: 06-10-5853Vxgejjj of tobacco useCurrent smokerOhioHealth Nelsonville Health Center SystemStart: 02-09-1994 End: 96-44-8926Nxduqfn of tobacco useCigarette SmokerOhioHealth Nelsonville Health Center System Start: 02-12-2024 End: 38-39-1348Mzbvdjdpi beverage intakeCurrent drinker of alcohol (finding) [facility]: 65-39-2524Tmdkolkfrr depression screening fjacaqchjp2LpkMqbeyjVidant Pungo Hospitaltart: 69-76-4817Mqiulqv CommentSocially [facility] SystemStart: 64-43-3065ShhGjwola (finding)[facility] [employer] [facility]: 65-81-9105Ralwlas Comment1 per monthEast [facility] Medical Equipment Procedure CodeEquipment CodeEquipment Original TextEquipment IdentifierDates Orthopaedic bone screw, non-bioabsorbable, non-sterile()[id number] FDA Start: 79-81-6105Zjuekrsyclr bone screw, non-bioabsorbable, non-sterile ()[id number] FDAStart: 58-68-2646Eaqot nail, sterile ()[id number])[id number] FDAStart: 82-58-0146Ndmqqtutmub bone screw, non-bioabsorbable, sterile()[id number](52)[id number] FDA Start: 79-00-3536Fkrgdqwd orthopaedic fixation system, cerclage wire/cable, sterile()[id number](58)[id number] FDAStart: 67-27-6793Cellchcv orthopaedic fixation system, cerclage wire/cable, sterile (01)[id number](10)[id number] FDAStart: 07-28-2020 Functional Status RqmvWwlrvqywikUgalpjRpqvmirj56-71-0684Cuxmzrb Health Questionnaire 2 item (PHQ- 2) [Reported][facility] Clinical Notes 11-16-2020 to 12-12-2024 Note Date & XxbrNeupCmlncvmf94-88-3798 NotePatient: Keila Pinnell Procedure Summary Date: 12/12/24 Room / Location: [facility] OPERATING ROOM 02 / [facility] Operating Room Anesthesia Start: 1037 Anesthesia Stop: 1310 Procedure: REVERSE TOTAL SHOULDER ARTHROPLASTY (Right: Shoulder) Diagnosis: Rotator cuff tear arthropathy of right shoulder Glenohumeral arthritis, right Osteoporosis without pathological fracture Class 3 obesity (CMS/HCC) (Rotator cuff tear arthropathy of right shoulder [M75.101, M12.811]) Surgeons: Leo Ortega MD Responsible Provider: Lissette Garcia MD Anesthesia Type: general, regional ASA Status: 3 Anesthesia Type: general, regional Vitals Value Taken Time BP 114/71 12/12/24 13:25 Temp 36.4 ???C (97.5 ???F) 12/12/24 13:09 Pulse 90 12/12/24 13:37 Resp [...] PACU per anesthesia protocol. No notable events documented.[facility]11-03-2025 Note Patient: Keila Pinnell Procedure Summary Date: 12/12/24 Room / Location: [facility] OPERATING ROOM 02 / [facility] Operating Room Anesthesia Start: 1037 Anesthesia Stop: Procedure: REVERSE TOTAL SHOULDER ARTHROPLASTY (Right: Shoulder) Diagnosis: Rotator cuff tear arthropathy of right shoulder Glenohumeral arthritis, right Osteoporosis without pathological fracture Class 3 obesity (CMS/HCC) (Rotator cuff tear arthropathy of right shoulder [M75.101, M12.811]) Surgeons: Leo Ortega MD Responsible Provider: Lissette Garcia MD Anesthesia Type: general, regional ASA Status: 3 Anesthesia Post Transport Note Transport to: PACU O2 Route: face mask Oxygen Flow (L/min): 8 Patient Monitor: direct observation Transport: uneventful [facility] condition [facility] Airway Date/Time: 12/12/2024 10:49 AM Reason: elective General Information and Staff Patient location during procedure: OR Anesthesiologist: Lissette Garcia MD Resident/DEBURRING TECHNICIAN/WOODY: WOODY Winter Performed: resident/DEBURRING TECHNICIAN/WOODY Patient Condition Indications for airway management: anesthesia [...] approach: 1 Number of other approaches attempted: 0[facility] 12-12-[facility] NotePeripheral Block Patient location during procedure: pre-op Start time: 12/12/2024 10:12 AM End time: 12/12/2024 10:28 AM Reason for block: at surgeon's request and post-op pain management Staffing Performed: anesthesiologist Anesthesiologist: Lissette Garcia MD Resident/DEBURRING TECHNICIAN: WOODY Winter Preanesthetic Checklist Completed: patient identified, [...] ultrasound Paresthesia pain: none Heart rate change: noUnLouis Stokes [facility]11-03-2025 NotePatient: Keila Richardson Procedure Information Date/Time: 12/12/24 1100 Procedure: REVERSE TOTAL SHOULDER ARTHROPLASTY (Right: Shoulder) - POWERLIFTER, BIOMET NOTIFIED 12/05 VICENTE Location: [facility] OPERATING ROOM / [facility] Operating Room Surgeons: Leo Ortega MD Medical History[1] Relevant Problems Other [...] tear arthropathy of right shoulder ??? Seasonal allergiesUnLouis Stokes [facility] Center10-31-2025 History of Present illness Narrative* Emily Oleary MD - 12/09/2024 9:00 AM EDT [...] BOTOX 100 UNITS N/A 06/21/2024 Performed by Emily Oleary MD at [facility] FEMUR FRACTURE SURGERY Right 2020 FEMUR FRACTURE SURGERY Right 2021 HYSTERECTOMY 2008 partial ILIOCOCCYGEAL SUSPENSION N/A 06/21/2024 Performed by Emily Oleary MD at [facility] KNEE ARTHROSCOPY Bilateral prior to replacement MAGNETIC SEED LOCALIZATION EXCISION/BIOPSY MASS BREAST Right 03/17/2024 Performed by Yari Alan MD at [facility] REPLACEMENT TOTAL KNEE Bilateral 2011 TOTAL HIP ARTHROPLASTY Left 2021 VAGINAL POSTERIOR REPAIR N/A 06/21/2024 Performed by Emily Oleary MD at [facility] Current Outpatient Medications: ascorbic acid (VITAMIN C) 500 mg tablet, Take 2 tablets (1,000 mg total) by mouth in the morning., Disp: , Rfl: BOSWELLIA TERESA EXTRACT ORAL, Take 1 capsule by mouth [...] Takes for weight loss, Disp: , Rfl: qsnsvswk-ckwj-WZ-calcium &mins (THERAGRAN-M) 9 mg iron-400 mcg tablet, Take 1 tablet by mouth in the morning., Disp: , Rfl: omega 0-fqj-lzw-fish oil 100-400-1,000 mg capsule, Take 1 capsule by mouth in the morning. Jerusalem 3 600 mg, d3 50 mg., Disp: [...] kg (287 lb 6.4 oz) BMI 40.65 kg/m PHYSICAL EXAM Constitutional: General: She is not [...] urine, urinary infection, and discomfort during the procedure. Onset of action is generally within 7-10 days. The effects typically last 6-12 months at which time another injection is required in order to maintain [...] and similarly generated notes. documented in this encounterEast [facility] Telephone encounter Note* Telephone Encounter - KELVIN Dsouza - 12/09/2024 8:08 AM EDT Acknowledged [facility] Work Phone: [phone]) 677-723110-31-2025 Miscellaneous Notes* Telephone Encounter - KELVIN Dsouza - 12/09/2024 8:08 AM EDT Acknowledged * Telephone Encounter - Erika Elizabeth MA - 12/08/2024 1:26 PM EDT Hi, this is Keila. My birthday is [birth year] I had my labs done for my shoulder surgery and long story short, my blood work came back that I had a you t I. She said they sent something over to you guys, so maybe you guys could start me on something, but I just want to Let you know that I actually see my bladder dr. tomorrow morning at 9am for a school guidance counselor because I had that surgery and had that VTX injected for the I got to go all the time bladder shoes. Anyhow, I am going to have her look at my lab work and she will probably just write me up something. So if you guys get something I just did not want [...] You have any questions? My phone numbers [phone]. Thank you so much, have a great day. Pt stated she is seeing urology tomorrow and will have them address the UTI documented in this encounterUniversity [id number] Telephone encounter Note* Telephone Encounter - Erika Elizabeth MA - 12/08/2024 1:26 PM EDT Hi, this is Keila. My birthday is [birth year] I had my labs done for my shoulder surgery and long story short, my blood work came back that I had a you t I. She said they sent something over to you guys, so maybe you guys could start me on something, but I just want to Let you know that I actually see my bladder dr. tomorrow morning at 9am for a school guidance counselor because I had that surgery and had that VTX injected for the I got to go all the time bladder shoes. Anyhow, I am going to have her look at my lab work and she will probably just write me up something. So if you guys get something I just did not want [...] You have any questions? My phone numbers [phone]. Thank you so much, have a great day. Pt stated she is seeing urology tomorrow and will have them address the UTI [facility] [id number] NoteOrthopaedic Surgery Subjective 12/07/24 Keila Richardson is a [...] this visit. Body mass index is 38.35 kg/m???. Physical Exam Constitutional: General: She is not [...] of R shoulder from September 2023 at [facility] were also reviewed: Near complete rotator cuff tear with proximal migration of humerus. This was reviewed on the CD which show the patient has MRI scan from outside incision which shows the patient has complete tear of the supraspinatus as well as fluid around the rotator cuff as well as the biceps tendon sheath suggestive of complete tear of the rotator cuff along with rotator cuff tear arthropathy [...] shoulder and she wishes to pursue shoulder repla (more content not included)...[facility] 11-24-2024 History of Present illness Narrative* Maribell Alvarez MD - 11/24/2024 2:30 PM EDTAssociated Problem(s): Pre-operative clearance Patient is cleared for right shoulder surgery He has no current cardiac symptoms of chest pain This is a low cardiac procedure risk Labs were normal No NSAIDs 7-10 days prior to surgery to reduce the risk of bleeding. * Maribell Alvarez MD - 11/24/2024 2:00 PM EDT Images from the original note were not included. Subjective Patient ID: Keila Richardson is a 54 y.o. female who presents for surgical clearance. Pt is here for surgical clearance for reverse shoulder surgery on December [address] ortega fax #[phone] They will be doing labs on the , and she stated they never requested for an EKG States this appt is to go over medications, and give instructions is she needs to do anything with her meds before surgery No dentures No anesthesia issues Over the past 2 weeks, how often have you been bothered by any of the following problems? Little interest or pleasure in doing things: Not at all Feeling down, depressed, or hopeless: Not at all Patient Health Questionnaire-2 Score: 0 Current Outpatient Medications on File Prior to Visit Medication Sig Dispense Refill ascorbic acid (Vitamin C) 500 MG tablet Take 500 mg by mouth Daily Boswellia Teresa (BOSWELLIA PO) Take by mouth Cholecalciferol 50 MCG (2000 UT) chewable tablet Chew 1 tablet in the morning. Ferrous Sulfate (IRON PO) Take 1 tablet by mouth in the morning. fluticasone (Cutivate) 0.05 % cream Apply topically 2 (two) times a day 15 g 3 latanoprost (Xalatan) 0.005 % ophthalmic solution Administer 1 drop into both eyes at bedtime magnesium oxide 200 MG tablet Take 200 mg by mouth as needed at bedtime Milk Thistle 1000 MG capsule Take by mouth Multiple Vitamin (multivitamin) capsule Take 1 capsule by mouth Daily omega-3 (Fish Oil) 1000 MG capsule 1 capsule 1 (one) time each day at the same time Turmeric 500 MG capsule Take by mouth zinc 50 MG tablet Take by mouth [DISCONTINUED] metFORMIN XR (Glucophage-XR) 500 MG 24 hr tablet Take 1 tablet (500 mg) by mouth in the evening. Take with meals Do not crush, chew, or split. 30 tablet 11 [DISCONTINUED] phentermine (Adipex-P) 37.5 MG tablet Take 1 tablet (37.5 mg) by mouth in the morning. Take before meals. 30 tablet 0 [DISCONTINUED] phentermine (Adipex-P) 37.5 MG tablet Take 1 tablet (37.5 mg) by mouth in the morning. Take before meals. 90 tablet 0 [DISCONTINUED] phentermine (Adipex-P) 37.5 MG tablet Take 1 tablet (37.5 mg) by mouth in the morning. Take before meals. 90 tablet 0 No current facility-administered medications on file prior to visit. I have reviewed and reconciled the history and medication list with the patient today. Allergies Allergen Reactions Wound Dressing Adhesive Rash Social History Tobacco Use Smoking status: Never Smokeless tobacco: Never No family history on file. Past Medical History: Diagnosis Date Allergic Arthritis Glaucoma Past Surgical History: Procedure Laterality Date BI US GUIDED BREAST LOCALIZATION RIGHT Right 03/11/2024 BI US GUIDED BREAST LOCALIZATION RIGHT 03/11/2024 CT ANGIOGRAM HEART CORONARY 11/28/2021 CT ANGIOGRAM TAVR 11/28/2021 HYSTERECTOMY 2009 Visit Vitals BP 138/88 Pulse 94 Ht 5' 10 Wt 277 lb SpO2 98% BMI 39.75 kg/m OB Status Hysterectomy Smoking Status Never BSA 2.49 m Review of Systems Constitutional: Negative for chills, fatigue, fever and unexpected weight change. Respiratory: Negative for cough. Cardiovascular: Negative for chest pain. Gastrointestinal: Negative for abdominal pain, blood in stool, constipation, diarrhea, nausea and vomiting. Genitourinary: Negative for dysuria, enuresis, frequency and hematuria. Musculoskeletal: Negative for back pain. Neurological: Negative for dizziness, tremors, syncope, facial asymmetry and speech difficulty. Psychiatric/Behavioral: Negative for agitation, behavioral problems, confusion and dysphoric mood. The patient is not nervous/anxious. Objective Physical Exam Constitutional: General: She is not in acute distress. Appearance: Normal appearance. HENT: Head: Normocephalic. Cardiovascular: Rate and Rhythm: Normal rate and regular rhythm. Pulmonary: Effort: Pulmonary effort is normal. No respiratory distress. Breath sounds: Normal breath sounds. Neurological: General: No focal deficit present. Mental Status: She is alert and oriented to person, place, and time. Psychiatric: Mood and Affect: Mood normal. Assessment/Plan Problem List Items Addressed This Visit Pre-operative clearance - Primary Patient is cleared for right shoulder surgery He has no current cardiac symptoms of chest pain This is a low cardiac procedure risk Labs were normal No NSAIDs 7-10 days prior to surgery to reduce the risk of bleeding. No follow-ups on file. documented in this encounterUniversity [id number] NoteOrthopaedic Surgery Subjective Follow-up of the Left Hip and Pain of the Right Shoulder 11/16/24 Keila Richardson is a 54 y.o. female presenting for follow up of left hip and right shoulder pain. She has a history of left posterolateral total hip arthroplasty using [place] dual mobility implants on 11/27/21. She has [...] hip joint posterolateral total hip arthroplasty using [place] dual mobility implants on 11/27/21. States that [...] hip arthroplasty. non-tender Hip ROM: Internal Rotation 15??? External Rotation 35??? Flexion 120??? Strength: Hip Flexion 5/5 Hip [...] of the shoulder girdle muscles noted. Severe limitations of the right shoulder range of motion [...] of R shoulder from September 2023 at [facility] were also reviewed: Near complete rotator cuff tear with proximal migration of humerus. This was reviewed on the CD which show the patient has MRI scan from outside incision which shows the patient has complete tear of the supraspinatus as well as fluid around the rotator cuff as well as the bi (more content not included)... [facility]06-25-[facility] History of Present illness Narrative* Emily Oleary MD - 08/03/2024 3:00 PM EDT SUBJECTIVE Chief Complaint: 6 week postoperative visit HPI Ms. Keila Richardson is a , 54 y.o. female who is 6 weeks s/p posterior repair and iliococcygeal suspension, and intra-detrusor Botox, performed on June 21, 2024 for stage II posterior compartment prolapse and urge urinary incontinence and overactive bladder. She reports that she is doing well. She denies having any overall issues or concerns. Bulging is resolved. No bleeding. No discharge. No pain. Moving bowels well. Notes decreased incontinence. Only 3 small episodes of incontinence since procedure. No symptoms of voiding dysfunction. No symptoms of urinary tract infection. Past Medical History: Diagnosis Date Blood test positive for human leukocyte antigen (HLA) B27 2021 Breast lesion 01/2024 right Closed fracture of right distal femur (CMS-HCC) 08/11/2023 COVID 2021 Dizziness Eczema of both hands 08/11/2023 Elevated erythrocyte sedimentation rate 08/06/2023 Glaucoma 11/2023 Obesity has taken Metformin and Adapex Visual impairment glasses Past Surgical History: Procedure Laterality Date CYSTOSCOPY INJECTION BOTOX 100 UNITS N/A 06/21/2024 Performed by Emily Oleary MD at [facility] FEMUR FRACTURE SURGERY Right 2020 FEMUR FRACTURE SURGERY Right 2021 HYSTERECTOMY 2009 partial ILIOCOCCYGEAL SUSPENSION N/A 06/21/2024 Performed by Emily Oleary MD at [facility] KNEE ARTHROSCOPY Bilateral prior to replacement MAGNETIC SEED LOCALIZATION EXCISION/BIOPSY MASS BREAST Right 03/17/2024 Performed by Yari Alan MD at [facility] REPLACEMENT TOTAL KNEE Bilateral 2011 TOTAL HIP ARTHROPLASTY Left 2021 VAGINAL POSTERIOR REPAIR N/A 06/21/2024 Performed by Emily Oleary MD at [facility] Current Outpatient Medications: ascorbic acid (VITAMIN C) 500 mg tablet, Take 2 tablets (1,000 mg total) by mouth in the morning., Disp: , Rfl: BOSWELLIA TERESA EXTRACT ORAL, Take 1 capsule by mouth [...] Takes for weight loss, Disp: , Rfl: atfxxlpi-tskn-AU-calcium &mins (THERAGRAN-M) 9 mg iron-400 mcg tablet, Take 1 tablet by mouth in the morning., Disp: , Rfl: omega 4-pmd-lsr-fish oil 100-400-1,000 mg capsule, Take 1 capsule by mouth in the morning. Jerusalem 3 600 mg, d3 50 mg., Disp: [...] ALLERGIES Tape [adhesive] OBJECTIVE VITAL SIGNS BP 124/82 Pulse 80 Ht 179.1 cm (5' 10.5 ) Wt 123 kg (271 lb 3.2 oz) BMI 38.36 kg/m PHYSICAL EXAM Constitutional: General: She is not in acute distress. Abdominal: General: There is no distension. Palpations: Abdomen is soft. There is no hepatomegaly, splenomegaly or mass. Tenderness: There is no abdominal tenderness. Hernia: No hernia is observable. Genitourinary: External exam Vulva and introitus: Normal appearance for age, no lesions, no erythema. Urethra: No prolapse, mass, urethral pain or urethral lesion. Bladder: Not tender, no distention. Bartholin's glands: Normal size, non-tender. Perineum/anus: Normal appearance, no lesions or hemorrhoids. Internal exam Vagina: Mucosa is atrophic, pale, thin, and dry,no discharge. No evidence of mesh or suture erosion. Cervix: Absent. Uterus: Absent. Adnexa: Absent. Rectum: ALEK deferred. Anterior Wall -3 Aa Anterior Wall -3 Ba Cervix or Cuff -7 C Genital Hiatus 3 gH Perineal Body 2 pB TVL 9 TVL Posterior Wall -3 Ap Posterior Wall -3 Bp Posterior Fornix N/A D ASSESSMENT/PLAN ICD-10-CM 1. Postoperative visit Z48.89 She is doing well 6 weeks post-op. We discussed avoidance of risk factors that my increase her riskof prolapse recurrence. She was encouraged to avoid straining with bowel movements and ways to avoid and or manage constipation. Whenever possible, heavy lifting over 30 pounds should be avoided. This also includes pushing and pulling heavy objects. She was advised to follow up for 6 months post-opappointment, and was encouraged to call sooner if she has any questions or concerns that arise in the interim before that appointment. This chart note was put together with the assistance of a speech recognition program. While intending to generate a timely document that accurately reflects the contents of the visit, no guarantee can be provided that every grammatical or spelling mistake has been or will be identified or corrected. Thank you for your understanding when reviewing this and similarly generated notes. documented in this encounterEast Liverpool City Hospital05-05-2025 Instructions* Pre- Procedure Instructions - Suzanne Keating RN - 06/13/2024 2:45 PM EDT Your surgery/procedure is scheduled at [facility] on 06/21/2024 at 1030 am Arrival Time 830 am [facility] Address: [address] [place] [address], [facility], [facility] in the Emergency Center Parking lot. Report to the front office representative in the Emergency/Surgery Registration lobby of the hospital. Notify your SURGEON if you develop any illness such as a cold, cough, fever, sore throat, vomiting or are hospitalized between now and your surgery. Please call Pre-Admission Clinic at [phone] if you have any questions prior to surgery. For questions the morning of surgery, call the Pre-op Department at [phone]. Medication Instructions (Do not stop your medications without consulting the prescribing physician). Take the following medications the morning of surgery with a sip of water: no meds Diabetic or Weight loss medications: HOLD phentermine/adipex LAST DOSE 06/13/2024 Take inhalers as prescribed the morning of surgery. Due to the risk associated with these medications. If these medications are not held per instruction below, your surgery is at an increased risk for cancellation SGLT2 Medications- Hold 3 days prior to surgery: Jardiance, Empagliflozin, Farxiga, Dapagliflozin, Invokana, Canagliflozin, Trijardy, Synjardy GLP-1 Medications (Injection or Pill)- If taken daily hold day of surgery. If taken weekly, hold 1 week prior to surgery: Adlyxin, Byetta, Bydureon, Ozempic, Rybelsus,Trulicity, Victoza, Wegovy, Lixisenatide, Exenatide, Semaglutide, Dulaglutide, Liraglutide GIP/GLP-1(Injection or Pill)- If taken daily hold day of surgery. If taken weekly, hold 1 week prior to surgery: Gatitounnevaehro . Blood thinners: Please contact your prescribing physician regarding a stop/hold date for these medications. Medications such as Coumadin, Heparin, Aspirin, Plavix, Eliquis, Pradaxa Diabetics: If you take insulin, contact your prescribing doctor for instructions on how to manage this the night before and the morning of surgery. Non-steriodal Anti-Inflammatory Drugs (NSAIDS)- Hold 7 days prior to surgery unless otherwise directed by your surgeon. Vitamins/Herbal Products: You may continue to take your prescribed vitamins such as potassium, iron, vitamin B, vitamin C, or multivitamin unless specifically instructed by your surgeon to hold. STOPtaking all herbal products/teas one week prior to your surgery. Marijuana: Stop marijuana 72 hours prior to surgery, stop CBD oil 48 hours prior to surgery. If you have been given bowel prep instructions by your surgeon, please call the surgeon's office with any questions about these instructions. What do I do the day of Surgery? Age 2 through adult - Stop all solids by midnight, You may have clear liquids up to 2 hours before surgery, unless otherwise instructed by your surgeon Clear liquids are: water, sports drinks such as Gatorade or G2, or apple juice. You may NOT have: tube feedings, dairy products, alcoholic beverages, orange juice, or any liquids with solids or pulp in it If applicable, shower again with CHG soap the morning of your surgery. What do I need to do to prepare for surgery? If you will be going home the same day as your surgery, arrange for an adult over [address] Riding in a bus or taxi by yourself is not permitted. You should not smoke or drink alcohol 24 hours before your surgery. Smoking increases the risk of breathing problems after surgery. Alcohol thins the blood and may cause bleeding problems during surgery If you have been assigned SURINDER Education by your surgeon's office, please complete this education prior to your surgery. For questions regarding SURINDER education, reach out to your surgeons office. If you have been given a prescription for occupational, physical or speech therapy, please set up these appointments before your procedure. If you would like to schedule therapy at a [facility] facility, please call [phone] ([phone]). Do not use lotions, creams, powders, perfume, make up, cologne or after-shaves day of surgery. Remove ALL jewelry including wedding rings, body piercings, hair extensions that contain metal, nail portuguese, make-up, and contact lens. You may brush your teeth the morning of surgery, but do not swallow the water. Wear your dentures and partial plates to the hospital (no adhesive). Shower the night the before. If applicable, use the CHG (chlorhexidine gluconate) soap or wipes. Please place clean linens on your bed after showering. Do not allow your pets in your bed. Please be advised, [employer] has transitioned to a cashless payment system. What should I bring to the hospital? Eyeglass or contact lens case If you will be spending the night, please bring personal care items and leave them in the car untilyou are taken to your room after surgery. Leave ALL valuables at home. If any of these instructions conflict with those you recieved from the surgeon, please seek clarification from your surgeon's office. DEEP BREATHING EXERCISES This exercise helps promote good air exchange and helps to prevent pneumonia after surgery. Breathe in slowly and deeply through the nose. Hold your breath for a few seconds and then exhale slowly through the mouth. Repeat this three times and then cough. Coughing helps to clear your lungs. If you have had a surgery with an incision into your abdomen or chest, press gently against your incision with a pillow or a folded blanket when you cough. Please be aware - it may not be mc to cough following some types of surgeries involving the eyes,ears, sinuses and throat. Always follow your doctor's instructions. LEG EXERCISES These exercises help promote good circulation and help to prevent blood clots after surgery. Point your toes to the ceiling and then point them to the wall. Do this slowly about 15-20 times. You may also move your feet in circles. Do the exercise that is most comfortable for you. If you have had surgery involving your shoulder or arm, we recommend you move your fingers. PRACTICING We ask that you begin practicing these exercises before your surgery. After surgery try to do both exercises at least every 2 hours during the day and early evening. Surgical Site Infection Prevention What is a Surgical Site Infection (SSI)? Infection can happen to the area of the body where surgery is done. This is called a surgical site infection (SSI). A SSI does not happen very often. What are some of the things that hospitals are doing to prevent SSIs? Soap and water or alcohol hand rub are used before and after caring for each patient. Special soap is used to clean surgery workers hands and arms just before the surgery. Masks, gowns, gloves and hair covers are worn during the surgery to keep the area clean. Hair in the surgery area may be removed with clippers (not razors). A special soap that kills germs is used to clean the skin at the surgery site. Antibiotics may be given before the surgery starts. What can you do to prevent SSIs? Before surgery: You may be asked to shower or bathe with a special soap that kills germs the night before and the day of surgery. Use the soap as you were told. Place clean sheets on your bed the night before surgery and do not allow your pets in your bed. If you smoke or vape, stop or cut down. This creates a stress response in your body that increases inflammation, constricts blood vessels and deprives your tissues of oxygen. After surgery, this stress response disrupts the travel of oxygen, nutrients, and blood to your surgical site, interfering with the wound healing process. It also decreases the ability of your cells to fight infection. Ask your doctor about ways to quit. If you have high blood sugars or diabetes please talk with your doctor about having healthy blood sugar levels to promote healing. Do not shave near where you will have surgery. Shaving can irritate the skin and make it easier to get and infection. After surgery: Be sure that the doctors and nurses clean their hands before and after touching you. Be sure your family and friends clean their hands before and after visiting you. Do not be afraid to remind them. Always wash your hands before touching your incisional area. * Care for your wound at home as told by your doctor or nurse * Call your doctor right away if you have fever, redness, increased pain, or drainage at the surgery site. Can SSIs be treated? Antibiotics are used to treat SSI. Some patients may need another surgery to treat the infection. The doctor will discuss treatment options with you. Further questions? Contact the doctor, nurse or the Infection Prevention and Control department if you have any questions. PATIENT RIGHTS AND RESPONSIBILITIES As a patient at [facility], you have the right to: Receive medical care and be informed of who is taking care of you Be treated with dignity and respect Have a family member/business representative of choice and your physician notified of your admission Receive information and actively participate in decisions about your care and treatment Refuse care, treatment and services Decide who may provide your support and speak for you Access anabaptist and spiritual services Participate in ethical issues and questions about your care Receive private and confidential care Have appropriate assessment and management of your pain Know guest visitation restrictions or limitations Have an advance directive Access protective services Consent or refuse to participate in research studies or production or recordings, films or other images Have resolution of your complaints Receive information of hospital charges and payment methods Patient/patient business representative responsibilities are to: Provide information about health status to facilitate care, treatment and services Follow the treatment, plan, keep appointments and speak up when you do not understand the plan Respect the rights of other patients and healthcare personnel Follow organizational rules and regulations that support quality care and a safe environment Fulfill financial obligations as promptly as possible [facility]05-05-2025 Miscellaneous Notes* Pre-Procedure Instructions - Suzanne Keating RN - 06/13/2024 2:45 PM EDT Your surgery/procedure is scheduled at [facility] on 06/21/2024 at 1030 am Arrival Time 830 am [facility] Address: [address] [place] [address], [facility], [address] [place] [address] in the Emergency Center Parking lot. Report to the front office representative in the Emergency/Surgery Registration lobby of the hospital. Notify your SURGEON if you develop any illness such as a cold, cough, fever, sore throat, vomiting or are hospitalized between now and your surgery. Please call Pre-Admission Clinic at [phone] if you have any questions prior to surgery. For questions the morning of surgery, call the Pre-op Department at [phone]. Medication Instructions (Do not stop your medications without consulting the prescribing physician). Take the following medications the morning of surgery with a sip of water: no meds Diabetic or Weight loss medications: HOLD phentermine/adipex LAST DOSE 06/13/2024 Take inhalers as prescribed the morning of surgery. Due to the risk associated with these medications. If these medications are not held per instruction below, your surgery is at an increased risk for cancellation SGLT2 Medications- Hold 3 days prior to surgery: Jardiance, Empagliflozin, Farxiga, Dapagliflozin, Invokana, Canagliflozin, Trijardy, Synjardy GLP-1 Medications (Injection or Pill)- If taken daily hold day of surgery. If taken weekly, hold 1 week prior to surgery: Adlyxin, Byetta, Bydureon, Ozempic, Rybelsus,Trulicity, Victoza, Wegovy, Lixisenatide, Exenatide, Semaglutide, Dulaglutide, Liraglutide GIP/GLP-1(Injection or Pill)- If taken daily hold day of surgery. If taken weekly, hold 1 week prior to surgery: Mounjaro . Blood thinners: Please contact your prescribing physician regarding a stop/hold date for these medications. Medications such as Coumadin, Heparin, Aspirin, Plavix, Eliquis, Pradaxa Diabetics: If you take insulin, contact your prescribing doctor for instructions on how to manage this the night before and the morning of surgery. Non-steriodal Anti-Inflammatory Drugs (NSAIDS)- Hold 7 days prior to surgery unless otherwise directed by your surgeon. Vitamins/Herbal Products: You may continue to take your prescribed vitamins such as potassium, iron, vitamin B, vitamin C, or multivitamin unless specifically instructed by your surgeon to hold. STOPtaking all herbal products/teas one week prior to your surgery. Marijuana: Stop marijuana 72 hours prior to surgery, stop CBD oil 48 hours prior to surgery. If you have been given bowel prep instructions by your surgeon, please call the surgeon's office with any questions about these instructions. What do I do the day of Surgery? Age 2 through adult - Stop all solids by midnight, You may have clear liquids up to 2 hours before surgery, unless otherwise instructed by your surgeon Clear liquids are: water, sports drinks such as Gatorade or G2, or apple juice. You may NOT have: tube feedings, dairy products, alcoholic beverages, orange juice, or any liquids with solids or pulp in it If applicable, shower again with CHG soap the morning of your surgery. What do I need to do to prepare for surgery? If you will be going home the same day as your surgery, arrange for an adult over [address] Riding in a bus or taxi by yourself is not permitted. You should not smoke or drink alcohol 24 hours before your surgery. Smoking increases the risk of breathing problems after surgery. Alcohol thins the blood and may cause bleeding problems during surgery If you have been assigned SURINDER Education by your surgeon's office, please complete this education prior to your surgery. For questions regarding SURINDER education, reach out to your surgeons office. If you have been given a prescription for occupational, physical or speech therapy, please set up these appointments before your procedure. If you would like to schedule therapy at a [facility] facility, please call [phone] ([phone]). Do not use lotions, creams, powders, perfume, make up, cologne or after-shaves day of surgery. Remove ALL jewelry including wedding rings, body piercings, hair extensions that contain metal, nail portuguese, make-up, and contact lens. You may brush your teeth the morning of surgery, but do not swallow the water. Wear your dentures and partial plates to the hospital (no adhesive). Shower the night the before. If applicable, use the CHG (chlorhexidine gluconate) soap or wipes. Please place clean linens on your bed after showering. Do not allow your pets in your bed. Please be advised, [facility] has transitioned to a cashless payment system. What should I bring to the hospital? Eyeglass or contact lens case If you will be spending the night, please bring personal care items and leave them in the car untilyou are taken to your room after surgery. Leave ALL valuables at home. If any of these instructions conflict with those you recieved from the surgeon, please seek clarification from your surgeon's office. DEEP BREATHING EXERCISES This exercise helps promote good air exchange and helps to prevent pneumonia after surgery. Breathe in slowly and deeply through the nose. Hold your breath for a few seconds and then exhale slowly through the mouth. Repeat this three times and then cough. Coughing helps to clear your lungs. If you have had a surgery with an incision into your abdomen or chest, press gently against your incision with a pillow or a folded blanket when you cough. Please be aware - it may not be mc to cough following some types of surgeries involving the eyes,ears, sinuses and throat. Always follow your doctor's instructions. LEG EXERCISES These exercises help promote good circulation and help to prevent blood clots after surgery. Point your toes to the ceiling and then point them to the wall. Do this slowly about 15-20 times. You may also move your feet in circles. Do the exercise that is most comfortable for you. If you have had surgery involving your shoulder or arm, we recommend you move your fingers. PRACTICING We ask that you begin practicing these exercises before your surgery. After surgery try to do both exercises at least every 2 hours during the day and early evening. Surgical Site Infection Prevention What is a Surgical Site Infection (SSI)? Infection can happen to the area of the body where surgery is done. This is called a surgical site infection (SSI). A SSI does not happen very often. What are some of the things that hospitals are doing to prevent SSIs? Soap and water or alcohol hand rub are used before and after caring for each patient. Special soap is used to clean surgery workers hands and arms just before the surgery. Masks, gowns, gloves and hair covers are worn during the surgery to keep the area clean. Hair in the surgery area may be removed with clippers (not razors). A special soap that kills germs is used to clean the skin at the surgery site. Antibiotics may be given before the surgery starts. What can you do to prevent SSIs? Before surgery: You may be asked to shower or bathe with a special soap that kills germs the night before and the day of surgery. Use the soap as you were told. Place clean sheets on your bed the night before surgery and do not allow your pets in your bed. If you smoke or vape, stop or cut down. This creates a stress response in your body that increases inflammation, constricts blood vessels and deprives your tissues of oxygen. After surgery, this stress response disrupts the travel of oxygen, nutrients, and blood to your surgical site, interfering with the wound healing process. It also decreases the ability of your cells to fight infection. Ask your doctor about ways to quit. If you have high blood sugars or diabetes please talk with your doctor about having healthy blood sugar levels to promote healing. Do not shave near where you will have surgery. Shaving can irritate the skin and make it easier to get and infection. After surgery: Be sure that the doctors and nurses clean their hands before and after touching you. Be sure your family and friends clean their hands before and after visiting you. Do not be afraid to remind them. Always wash your hands before touching your incisional area. * Care for your wound at home as told by your doctor or nurse * Call your doctor right away if you have fever, redness, increased pain, or drainage at the surgery site. Can SSIs be treated? Antibiotics are used to treat SSI. Some patients may need another surgery to treat the infection. The doctor will discuss treatment options with you. Further questions? Contact the doctor, nurse or the Infection Prevention and Control department if you have any questions. PATIENT RIGHTS AND RESPONSIBILITIES As a patient at [facility], you have the right to: Receive medical care and be informed of who is taking care of you Be treated with dignity and respect Have a family member/business representative of choice and your physician notified of your admission Receive information and actively participate in decisions about your care and treatment Refuse care, treatment and services Decide who may provide your support and speak for you Access anabaptist and spiritual services Participate in ethical issues and questions about your care Receive private and confidential care Have appropriate assessment and management of your pain Know guest visitation restrictions or limitations Have an advance directive Access protective services Consent or refuse to participate in research studies or production or recordings, films or other images Have resolution of your complaints Receive information of hospital charges and payment methods Patient/patient business representative responsibilities are to: Provide information about health status to facilitate care, treatment and services Follow the treatment, plan, keep appointments and speak up when you do not understand the plan Respect the rights of other patients and healthcare personnel Follow organizational rules and regulations that support quality care and a safe environment Fulfill financial obligations as promptly as possible [facility] Miscellaneous Notes* Telephone Encounter - Jackelyn Ochoa - 06/09/2024 3:59 PM EDT Patient called and asked if she was suppose to stop all her medications and supplements and tylenolfor 2 weeks prior to her surgery or if she could take anything at all. * Telephone Encounter - Emily Oleary MD - 06/09/2024 3:59 PM EDT She should have had PATs where they reviewed her med list and told her what to stop and when. * Telephone Encounter - Jackelyn Ochoa - 06/09/2024 3:59 PM EDT Ok thank you I will let her know. [facility] Telephone encounter Note* Telephone Encounter - Jackelyn Ochoa - 06/09/2024 3:59 PM EDT Patient called and asked if she was suppose to stop all her medications and supplements and tylenolfor 2 weeks prior to her surgery or if she could take anything at all. [facility]05-01-2025 Telephone encounter Note* Telephone Encounter - Emily Oleary MD - 06/09/2024 3:59 PM EDT She should have had PATs where they reviewed her med list and told her what to stop and when. [facility] Work Phone: 1([phone]) 702-309505-01-2025 Telephone encounter Note* Telephone Encounter - Jackelyn Ochoa - 06/09/2024 3:59 PM EDT Ok thank you I will let her know. [facility]04-01-2025 History of Present illness Narrative* Emily Oleary MD - 05/10/2024 9:45 AM EDT CC: Urodynamic testing and surgical consultation HPI: Ms. Richardson is a pleasant, 53-year-old, para 2, referred several mos ago, by , for evaluation of prolapse and urinary incontinence. The incontinence had been a problem for several years.She stated that a bladder sling was previously planned but had to be delayed due to other health issues. She leaked urine several times per day in large amounts. She used more than 6 pads daily. The vast majority of her leakage occurred with urgency but she also reported postural incontinence and Valsalva related leakage. She voided twice nightly. She had in the past trialed medication but it hadbeen several years and she did not recall the name. She noted newer symptoms of vaginal bulging. This had been present for a few weeks. Bulging did notprotrude past the introitus. No associated pain but she does have some discomfort. No bleeding or drainage. She does have to digitate to facilitate bowel movements. She does not have to digitate to facilitate bladder emptying. No prior treatments for prolapse. She is status post hysterectomy for heavy bleeding in 2008. She denies chronic constipation, chronic diarrhea, and fecal incontinence. She is not currently sexually active due to the prolapse. Initial pelvic examination revealed stage II anterior-posterior compartment prolapse to -1. SST wasnegative (300 mL). PVR was normal. Urinalysis was negative. We opted to trial a medication for her urgency incontinence symptom as this seemed to be the primary bothersome issue for her. We could not get a beta agonist covered by her insurance. She tried solifenacin 5 mg. She noted some decreased frequency and urgency. She said the incontinence was largely u nchanged. We opted to trial 10 mg dosing. This caused significant side effects. She is here today for urodynamic testing, repeat examination. Past Medical History: Diagnosis Date Blood test positive for human leukocyte antigen (HLA) B27 2021 Breast lesion 01/2024 right Closed fracture of right distal femur (CMS-HCC) 08/11/2023 COVID 2021 Dizziness Eczema of both hands 08/11/2023 Elevated erythrocyte sedimentation rate 08/06/2023 Glaucoma 11/2023 Obesity has taken Metformin and Adapex Visual impairment glasses Past Surgical History: Procedure Laterality Date FEMUR FRACTURE SURGERY Right 2020 FEMUR FRACTURE SURGERY Right 2021 HYSTERECTOMY 2009 partial KNEE ARTHROSCOPY Bilateral prior to replacement MAGNETIC SEED LOCALIZATION EXCISION/BIOPSY MASS BREAST Right 03/17/2024 Performed by Yari Alan MD at [facility] SURGERY REPLACEMENT TOTAL KNEE Bilateral 2011 TOTAL HIP ARTHROPLASTY Left 2021 Current Outpatient Medications Medication Instructions ascorbic acid (VITAMIN C) 500 mg, Daily BOSWELLIA TERESA EXTRACT ORAL 1 capsule, Daily cholecalciferol, vitamin D3, 50 mcg (2,000 unit) tablet,chewable 1 tablet, Daily latanoprost (XALATAN) 0.005 % ophthalmic solution 1 drop, Nightly magnesium oxide 200 mg, Nightly PRN metFORMIN (FORTAMET) 500 mg, Daily before evening meal omega 0-jnv-gph-fish oil 100-400-1,000 mg capsule 1 capsule, Daily phentermine (ADIPEX-P) 37.5 mg, Every morning before breakfast turmeric root extract 500 mg capsule 1 capsule, Daily zinc acetate 50 mg (zinc) capsule 1 tablet, Daily Allergies Allergen Reactions Tape [Adhesive] Rash Blisters skin, scars skin PE: BP 125/84 Pulse 87 Ht 177.8 cm (5' 10 ) Wt 119.8 kg (264 lb 3.2 oz) BMI 37.91 kg/m General: Alert, NAD CVS: RRR Pulm: Non-labored resps Abd: Soft, NT/ND Genitourinary: External exam Vulva and introitus: Normal appearance for age, no lesions, no erythema. Urethra: No prolapse, mass, urethral pain or urethral lesion. Bladder: Not tender, no distention. Bartholin's glands: Normal size, non-tender. Perineum/anus: Normal appearance, no lesions or hemorrhoids. Internal exam Vagina: Mucosa is healthy, no discharge. Cervix: absent Uterus: absent Adnexa: Bimanual exam limited per body habitus, ovaries not palpable, no tenderness or masses. Rectum: ALEK deferred. Anterior Wall -2 Aa Anterior Wall -2 Ba Cervix or Cuff -4 C Genital Hiatus 2 gH Perineal Body 3 pB TVL 6 TVL Posterior Wall 0 Ap Posterior Wall 0 Bp Posterior Fornix N/A D Urodynamic Evaluation Pre-test UA: A urinalysis was obtained using sterile technique an in and out catheter transurethrally. A dipstick of the patient's urine was obtained. Please refer to lab results. Uroflow Study: Amount Voided: 418 mL Time to Max Flow: 8 sec Maximum Flow Rate: 29 mL/sec Average Flow Rate: 13 mL/sec Curve Pattern: Normal Straight catheterization for Postvoid Residual: 50 mL CMG with Voiding Pressure Study and urethral pressure profile with intraabdominal probe: The patient's bladder was retrogradely filled through the filling port of a dual port urodynamic pressure catheter. A single port urodynamic pressure catheter was placed in the rectum. All the catheters were zeroed at atmospheric pressure. T doc pressure catheters were utilized throughout. At 50 cc of bladdervolume the dual port catheter was withdrawn from the bladder manually to the point of maximal urethral pressure. Prolapse reduction was accomplished with the posterior blade of a Grave's speculum. The patient was positioned in seated lithotomy. Standing cystometrogram was not done. First Sensation: 6 mL First Desire: 119 mL Strong Desire: 271 mL Capacity: 450 mL Compliance: Normal Detrusor Overactivity: None VLPP and CLPP at 150 mL: No leakage VLPP and CLPP at 300 mL: No leakage VLPP and CLPP at 450 mL: No leakage UPP at 50 mL was 61 cm H2O UPP at RESIDENTIAL was 69 cm H2O MUCP (maximal urethral closure pressure): 65 cm H2O Voiding Pressure Flow Study: The patient was asked to void at maximum cystometric capacity, uprightin the urodynamics chair while flow rate and voided volume were measured electronically. The singleport urodynamic catheter was left in the rectum with P2 measuring abdominal pressure. The patient was able to perform the voiding study. The patient voided by detrusor contraction and urethral relaxation. QMax: 22 mL/sec PDet at QMax: 18 cm of water Voided volume: 470 mL PVR: 0 mL Surface EMG Normal: During bladder filling the EMG revealed skeletal muscle relaxation. During voiding the EMG revealed skeletal muscle activity. Interpretation: Normal bladder capacity, sensation, and compliance. No evidence of detrusor overactivity. No urodynamic stress incontinence. Normal urethral pressure profile. Normal emptying. Results for orders placed or performed in visit on 03/11/24 Hemoglobin and hematocrit, blood Collection Time: 03/11/24 10:51 AM Result Value Ref Range Hemoglobin 14.5 11.7 - 15.5 g/dL Hematocrit 43.5 35 - 47 % A/P: 1. Mixed stress and urge urinary incontinence (Primary) 2. Postural urinary incontinence 3. Cystocele with rectocele 4. OAB (overactive bladder) She did not have substantial improvement in her symptoms on low-dose anti muscarinic and did not tolerate high-dose anti muscarinic therapy. Unable to get beta agonist covered. Urodynamic testing didnot reveal any evidence of urodynamic stress incontinence. Initial standing stress test was negative despite full bladder. Symptoms more consistent with urge predominant mixed urinary incontinence. We discussed tertiary treatment options for urge incontinence and I have recommended cystoscopy with intra detrusor Botox. She is amenable. We reviewed the risks and benefits of intra-detrusor botulinum toxin injection therapy at length. Short-term risks include blood in the urine, urinary infection, and discomfort during the procedure. Onset of action is generally within 7-10 days. The effects typically last 6-12 months at which time another injection is required in order to maintain efficacy. There is a 5-10% risk of urinary retention requiring clean intermittent self cath following injection. Risk is higher with the 200U dose. Retention will improve as the Botox wears off. There is potential for anti-body development and decreased efficacy with repeated use. She has stage II posterior compartment prolapse. No significant anterior compartment prolapse. Thisis somewhat symptomatic at this time. She desires definitive surgical management. We will plan posterior colporrhaphy with iliococcygeal suspension. Risks, benefits, alternatives discussed at length and informed consent was obtained. Risks discussed include but are not limited to bleeding, infection, injury to adjacent organs and structures, risk of worsening bowel function, risk of de Lisa dyspareunia. Counseled that she will need to manage functional constipation postoperatively and avoid repetitive straining so to decrease her risk prolapse recurrence. Plan: Posterior colporrhaphy, iliococcygeal suspension, cystoscopy with injection of 100 units of intra detrusor Botox. documented in [facility] History of Present illness Narrative* Julissa Sandoval RN - 03/30/2024 11:59 AM EST Patient seen today 2 weeks post op right excisional biopsy. She is doing well. She denies fever/chills/redness/drainage at site. She denies pain in the breast. Right breast incision is healing and well approximated. She does have a faint bruise and palpable hematoma to right breast. She states it is improving. She was encouraged to heat the area 10-15 min, 3-4 times/day. Pathology was previously reviewed by Dr. Alan. Patient had no further questions regarding benign findings. Patient will be due for screening mammogram end of September,. This will be ordered and faxed to [facility] per patient request. Patient does endorse some pain in her right shoulder. She states it has been hurting her since surgery. We discussed this could be due to the way she was positioned. She does admit she is due for a shoulder replacement. She will follow up on this. Patient will follow up in breast care clinic as needed. [facility] History and physical note* Lexie Grigsby APRN-MIKE - 03/11/2024 9:30 AM EST PRE-ADMISSION TESTING HISTORY AND PHYSICAL EXAM DATE: 03/11/24 PCP: MARIBELL ALVAREZ MD CHIEF COMPLAINT: breast lesion HISTORY OF PRESENT ILLNESS: Keila Richardson, a 53 y.o. White or female, presents to [facility] for a pre- surgical H&P. The patient has been diagnosed with a right breast lesion. She states it was found on screening mammogram. Her biopsy on 02/12/2024 showed a fibroepithelial lesion (fibroadenoma vs phyllodes). She statesshe still has some discoloration of the breast from the biopsy, which she is unsure if it is due toa reaction from the bandage/tape or from the hematoma. She denies breast pain, nipple discharge andskin dimpling. Anesthesia problems: pt denies. Latex allergy: pt denies. Bleeding/ clotting disorders: pt denies. Recent hospitalizations: pt denies. PAST MEDICAL HISTORY: Past Medical History: Diagnosis Date Blood test positive for human leukocyte antigen (HLA) B27 2021 Breast lesion 01/2024 right Closed fracture of right distal femur ([facility]) 08/11/2023 COVID 2021 Dizziness Eczema of both hands 08/11/2023 Elevated erythrocyte sedimentation rate 08/06/2023 Glaucoma 11/2023 Obesity has taken Metformin and Adapex Visual impairment glasses PAST SURGICAL HISTORY: Past Surgical History: Procedure Laterality Date FEMUR FRACTURE SURGERY Right 2020 FEMUR FRACTURE SURGERY Right 2021 HYSTERECTOMY 2009 partial KNEE ARTHROSCOPY Bilateral prior to replacement REPLACEMENT TOTAL KNEE Bilateral 2012 TOTAL HIP ARTHROPLASTY Left 2021 FAMILY HISTORY: Family History Problem Relation Age of Onset Anesthesia problems Mother slow to wake SOCIAL HISTORY: The patient reports current alcohol use. She reports that she quit smoking about 4 years ago. Her smoking use included cigarettes. She started smoking about 30 years ago. She has a 6.5 pack-year smoking history. She has never used smokelesstobacco. She reports no history of drug use. ALLERGIES: Allergies Allergen Reactions Tape [Adhesive] Rash Blisters skin, scars skin MEDICATIONS: Current Outpatient Medications: ascorbic acid (VITAMIN C) 500 mg tablet, Take 1 tablet (500 mg total) by mouth in the morning., Disp: , Rfl: baclofen (LIORESAL) 10 mg tablet, Take 1 tablet (10 mg total) by mouth nightly as needed., Disp: , Rfl: BOSWELLIA TERESA EXTRACT ORAL, Take 1 capsule by mouth in the morning., Disp: , Rfl: cholecalciferol, vitamin D3, 50 mcg (2,000 unit) tablet,chewable, Chew 1 tablet and swallow in the morning., Disp: , Rfl: latanoprost (XALATAN) 0.005 % ophthalmic solution, Administer 1 drop to both eyes nightly., Disp: ,Rfl: magnesium oxide 200 mg magnesium tablet, Take 200 mg by mouth nightly as needed., Disp: , Rfl: metFORMIN (FORTAMET) 500 MG (OSM) 24 hr tablet, Take 1 tablet (500 mg total) by mouth Daily before evening meal. Takes for weight loss, Disp: , Rfl: omega 5-qdv-qmp-fish oil 100-400-1,000 mg capsule, Take 1 capsule by mouth in the morning. Jerusalem 3 600 mg, d3 50 mg., Disp: , Rfl: phentermine (ADIPEX-P) 37.5 mg tablet, Take 1 tablet (37.5 mg total) by mouth every morning before breakfast., Disp: , Rfl: solifenacin (VESICARE) 10 mg tablet, Take 1 tablet (10 mg total) by mouth in the morning. (Patient taking differently: Take 1 tablet (10 mg total) by mouth in the morning. Patient stopped on own.), Disp: 30 tablet, Rfl: 2 turmeric root extract 500 mg capsule, Take 1 capsule by mouth in the morning., Disp: , Rfl: zinc acetate 50 mg (zinc) capsule, Take 1 tablet by mouth in the morning., Disp: , Rfl: No current facility-administered medications for this visit. REVIEW OF SYSTEMS: Review of Systems Constitutional: Negative for fever. HENT: Negative for dental problem, ear pain, rhinorrhea, sore throat and trouble swallowing. Eyes: Negative for redness. Respiratory: Negative for cough and shortness of breath. Cardiovascular: Positive for leg swelling (intermittent, not today). Negative for chest pain. Gastrointestinal: Negative for nausea, vomiting and diarrhea. Genitourinary: Negative for dysuria and hematuria. Musculoskeletal: Positive for arthralgias (right hip and right shoulder need replaced). Skin: Positive for rash (eczema on hands). Negative for wound. Neurological: Negative for seizures and syncope. Psychiatric/Behavioral: The patient is not nervous/anxious. VITAL SIGNS: BP 119/76 Pulse 81 Temp (!) 35.8 C (96.5 F) (Temporal) Resp 16 Ht 177.8 cm (5' 10 ) Wt 117.1 kg (258 lb 2.5 oz) SpO2 99% BMI 37.04 kg/m PHYSICAL EXAM: Physical Exam Constitutional: General: She is not in acute distress. Appearance: She is not toxic-appearing or diaphoretic. HENT: Head: Atraumatic. Nose: No rhinorrhea. Mouth/Throat: Mouth: Mucous membranes are moist. Pharynx: No posterior oropharyngeal erythema. Eyes: Conjunctiva/sclera: Conjunctivae normal. Pupils: Pupils are equal, round, and reactive to light. Cardiovascular: Rate and Rhythm: Normal rate and regular rhythm. Pulses: Normal pulses. Heart sounds: No murmur heard. Pulmonary: Effort: Pulmonary effort is normal. No respiratory distress. Breath sounds: No wheezing, rhonchi or rales. Abdominal: General: Bowel sounds are normal. Tenderness: There is no guarding. Musculoskeletal: General: No swelling. Skin: General: Skin is warm and dry. Neurological: Mental Status: She is alert and oriented to person, place, and time. Psychiatric: Mood and Affect: Mood normal. Behavior: Behavior normal. Behavior is cooperative. PERTINENT TESTING AVAILABLE IN [facility] (WITHIN THE PAST 2 YEARS): Echo: Echo complete W/3D Recon Independ wkstn 11/28/2021 Narrative 1 1 [facility] Heart Station [address] [place] [address] [phone] (fax) Echocardiogram-[facility] Name: KEILA RICHARDSON Study Date: 11/28/2021 09:50 AM B/P: 106 mmHg/61 mmHg HR: 84 bpm Date of : 1970 Location: [facility] Height: 71 in. Age: 51 year(s) Patient Room: 6108 Weight: 279 lb. Gender: Female Patient Status: OutPt BSA: 2.43 m2 Indication: Pulmonary embolism, S/P left hip surgery Examination: Echocardiogram (Complete) Image Quality: The patient was unable to roll left lateral Patient Consent: Procedure explained to patient Conclusions Left Ventricle: The left ventricle is normal size. Global left ventricular systolic function is at lower limits of normal. The EF is 50 % visually. Left ventricular wall thickness is normal. The septum is abnormal in its motion. Normal diastolic function. No left ventricular hypertrophy. Right Ventricle: The right ventricle is normal in size. Normal right ventricular systolic function. Unable to assess right sided pressures due to lack of measurable tricuspid regurgitation. Left Atrium: The left atrium is normal in size. Measurements Left Ventricle Label Value Normal Value LVOTd 1.9 cm (18cm - 20cm) LVOT PGmax 6 mmHg LVEF visual 50 % LVDd, 2D 4.72 cm (3.9cm - 5.3cm) LVDs, 2D 3.52 cm (2.1cm - 4cm) IVSd, 2D 0.8 cm (0.6cm - 1.1cm) LVPWd, 2D 0.75 cm (0.6cm - 0.9cm) LV Mass, 2D ASE 118.19 g LV Mass Index, 2D ASE 48.6 g/m?? (44g/m?? - 88.4g/m??) RWT, MM 0.32 (0 - 0.42) LVSVI, 2D 21 ml/m2 Right Ventricle Label Value Normal Value RVDd, 2D 2.85 cm (1.9cm - 3.8cm) TAPSE 2 cm Left Atrium Label Value Normal Value LA Volume, BP 30 ml (22ml - 52ml) LADs, 2D 3.5 cm (2.7cm - 3.8cm) LAESV index, BP 12.3 ml/m?? Right Atrium Label Value Normal Value RA Area 8 cm?? Aortic Valve Label Value Normal Value AV DVI 0.96 Mitral Valve Label Value Normal Value MV E Vmax 0.63 m/s MV A Vmax 0.99 m/s MV E/A 0.64 MV E/E' lateral 5.3 MV E' lateral 0.12 m/s Aorta Label Value Normal Value AoRoot, 2D 3.3 cm (1.4cm - 3.8cm) Valvular Assessment LVOT 0.7 - 1.1 m/sec Aortic Valve 1.0 - 1.7 m/sec Mitral Valve 0.6 - 1.3 m/sec Tricuspid Valve 0.3 - 0.7 m/sec Pulmonic Valve 0.6 - 0.9 m/sec Regurgitation Trivial No No No Max Velocity 1.21 m/sec 1.26 m/s 0.63 m/sec 0.95 m/s Max Gradient 6.00 mmHg 4.00 mmHg Valve Area 2.7 cm?? Findings Left Ventricle: The left ventricle is normal size. Global left ventricular systolic function is at lower limits of normal. The EF is 50 % visually. Left ventricular wall thickness is normal. The septum is abnormal in its motion. Normal diastolic function. No left ventricular hypertrophy. Right Ventricle: The right ventricle is normal in size. Normal right ventricular systolic function. Unable to assess right sided pressures due to lack of measurable tricuspid regurgitation. Left Atrium: The left atrium is normal in size. Right Atrium: The right atrium is normal in size. Mitral Valve: Mitral valve appears normal. No mitral regurgitation. Aortic Valve: The aortic valve is normal. Trivial aortic valve regurgitation. Tricuspid Valve: Normal tricuspid valve. No tricuspid regurgitation. Pulmonic Valve: Normal pulmonary valve. No pulmonary regurgitation. Aorta: The aortic root is normal in size. Great Vessels: IVC: The IVC is not well visualized, but appears to be dilated. Pericardium: No pericardial effusion. Procedure Staff Reading Group: [facility] [employer] Specialist: Tomer Azul RDCS Ordering Physician: LEO ORTEGA NT LABS: No results found for: WBC , HGB , HCT , PLT , INR , PTT , SODIUM , K , CL , CO2 , CALCIUM , ALKPHOS , ALBUMIN , GLU , HGBA1C , ALT , AST , CREATININE , BUN , GFR , EGFR *Please note that labs listed above are the most recent lab values available in [facility] at the time ofthe appointment. ASSESSMENT / DIAGNOSIS: Linked DX: BREAST LESION RIGHT PLAN: Keila Richardson is scheduled for Case Date: 03/17/2024 Linked Surgeon: Maria E Alan MD Linked Procedure: Magnetic Seed Localization Excision/Biopsy Mass Breast - Right. Pt requests please pay special attention to the right hip and right shoulder with positioning as both of these joints are painful and pending replacement. TOMAS Issa 03/11/24 1151 TOMAS Issa 03/11/24 1153 [facility]01-[facility] History and physical note* Lexie Grigsby, ALLEN-TRAFFIC DIRECTOR - 03/11/2024 9:30 AM EST PRE-ADMISSION TESTING HISTORY AND PHYSICAL EXAM DATE: 03/11/24 PCP: MARIBELL ALVAREZ MD CHIEF COMPLAINT: breast lesion HISTORY OF PRESENT ILLNESS: Keila Richardson, a 53 y.o. White or female, presents to [facility] for a pre- surgical H&P. The patient has been diagnosed with a right breast lesion. She states it was found on screening mammogram. Her biopsy on 02/12/2024 showed a fibroepithelial lesion (fibroadenoma vs phyllodes). She statesshe still has some discoloration of the breast from the biopsy, which she is unsure if it is due toa reaction from the bandage/tape or from the hematoma. She denies breast pain, nipple discharge andskin dimpling. Anesthesia problems: pt denies. Latex allergy: pt denies. Bleeding/ clotting disorders: pt denies. Recent hospitalizations: pt denies. PAST MEDICAL HISTORY: Past Medical History: Diagnosis Date Blood test positive for human leukocyte antigen (HLA) B27 2021 Breast lesion 01/2024 right Closed fracture of right distal femur ([facility]) 08/11/2023 COVID 2021 Dizziness Eczema of both hands 08/11/2023 Elevated erythrocyte sedimentation rate 08/06/2023 Glaucoma 11/2023 Obesity has taken Metformin and Adapex Visual impairment glasses PAST SURGICAL HISTORY: Past Surgical History: Procedure Laterality Date FEMUR FRACTURE SURGERY Right 2020 FEMUR FRACTURE SURGERY Right 2021 HYSTERECTOMY 2009 partial KNEE ARTHROSCOPY Bilateral prior to replacement REPLACEMENT TOTAL KNEE Bilateral 2012 TOTAL HIP ARTHROPLASTY Left 2021 FAMILY HISTORY: Family History Problem Relation Age of Onset Anesthesia problems Mother slow to wake SOCIAL HISTORY: The patient reports current alcohol use. She reports that she quit smoking about 4 years ago. Her smoking use included cigarettes. She started smoking about 30 years ago. She has a 6.5 pack-year smoking history. She has never used smokelesstobacco. She reports no history of drug use. ALLERGIES: Allergies Allergen Reactions Tape [Adhesive] Rash Blisters skin, scars skin MEDICATIONS: Current Outpatient Medications: ascorbic acid (VITAMIN C) 500 mg tablet, Take 1 tablet (500 mg total) by mouth in the morning., Disp: , Rfl: baclofen (LIORESAL) 10 mg tablet, Take 1 tablet (10 mg total) by mouth nightly as needed., Disp: , Rfl: BOSWELLIA TERESA EXTRACT ORAL, Take 1 capsule by mouth in the morning., Disp: , Rfl: cholecalciferol, vitamin D3, 50 mcg (2,000 unit) tablet,chewable, Chew 1 tablet and swallow in the morning., Disp: , Rfl: latanoprost (XALATAN) 0.005 % ophthalmic solution, Administer 1 drop to both eyes nightly., Disp: ,Rfl: magnesium oxide 200 mg magnesium tablet, Take 200 mg by mouth nightly as needed., Disp: , Rfl: metFORMIN (FORTAMET) 500 MG (OSM) 24 hr tablet, Take 1 tablet (500 mg total) by mouth Daily before evening meal. Takes for weight loss, Disp: , Rfl: omega 8-obj-dvv-fish oil 100-400-1,000 mg capsule, Take 1 capsule by mouth in the morning. Jerusalem 3 600 mg, d3 50 mg., Disp: , Rfl: phentermine (ADIPEX-P) 37.5 mg tablet, Take 1 tablet (37.5 mg total) by mouth every morning before breakfast., Disp: , Rfl: solifenacin (VESICARE) 10 mg tablet, Take 1 tablet (10 mg total) by mouth in the morning. (Patient taking differently: Take 1 tablet (10 mg total) by mouth in the morning. Patient stopped on own.), Disp: 30 tablet, Rfl: 2 turmeric root extract 500 mg capsule, Take 1 capsule by mouth in the morning., Disp: , Rfl: zinc acetate 50 mg (zinc) capsule, Take 1 tablet by mouth in the morning., Disp: , Rfl: No current facility-administered medications for this visit. REVIEW OF SYSTEMS: Review of Systems Constitutional: Negative for fever. HENT: Negative for dental problem, ear pain, rhinorrhea, sore throat and trouble swallowing. Eyes: Negative for redness. Respiratory: Negative for cough and shortness of breath. Cardiovascular: Positive for leg swelling (intermittent, not today). Negative for chest pain. Gastrointestinal: Negative for nausea, vomiting and diarrhea. Genitourinary: Negative for dysuria and hematuria. Musculoskeletal: Positive for arthralgias (right hip and right shoulder need replaced). Skin: Positive for rash (eczema on hands). Negative for wound. Neurological: Negative for seizures and syncope. Psychiatric/Behavioral: The patient is not nervous/anxious. VITAL SIGNS: BP 119/76 Pulse 81 Temp (!) 35.8 C (96.5 F) (Temporal) Resp 16 Ht 177.8 cm (5' 10 ) Wt 117.1 kg (258 lb 2.5 oz) SpO2 99% BMI 37.04 kg/m PHYSICAL EXAM: Physical Exam Constitutional: General: She is not in acute distress. Appearance: She is not toxic-appearing or diaphoretic. HENT: Head: Atraumatic. Nose: No rhinorrhea. Mouth/Throat: Mouth: Mucous membranes are moist. Pharynx: No posterior oropharyngeal erythema. Eyes: Conjunctiva/sclera: Conjunctivae normal. Pupils: Pupils are equal, round, and reactive to light. Cardiovascular: Rate and Rhythm: Normal rate and regular rhythm. Pulses: Normal pulses. Heart sounds: No murmur heard. Pulmonary: Effort: Pulmonary effort is normal. No respiratory distress. Breath sounds: No wheezing, rhonchi or rales. Abdominal: General: Bowel sounds are normal. Tenderness: There is no guarding. Musculoskeletal: General: No swelling. Skin: General: Skin is warm and dry. Neurological: Mental Status: She is alert and oriented to person, place, and time. Psychiatric: Mood and Affect: Mood normal. Behavior: Behavior normal. Behavior is cooperative. PERTINENT TESTING AVAILABLE IN [facility] (WITHIN THE PAST 2 YEARS): Echo: Echo complete W/3D Recon Independ wkstn 11/28/2021 Narrative 1 1 [facility] Heart Station [address] [place] [address] [phone] (fax) Echocardiogram-[facility] Name: KEILA RICHARDSON Study Date: 11/28/2021 09:50 AM B/P: 106 mmHg/61 mmHg HR: 84 bpm Date of : 1970 Location: [facility] Height: 71 in. Age: 51 year(s) Patient Room: 6108 Weight: 279 lb. Gender: Female Patient Status: OutPt BSA: 2.43 m2 Indication: Pulmonary embolism, S/P left hip surgery Examination: Echocardiogram (Complete) Image Quality: The patient was unable to roll left lateral Patient Consent: Procedure explained to patient Conclusions Left Ventricle: The left ventricle is normal size. Global left ventricular systolic function is at lower limits of normal. The EF is 50 % visually. Left ventricular wall thickness is normal. The septum is abnormal in its motion. Normal diastolic function. No left ventricular hypertrophy. Right Ventricle: The right ventricle is normal in size. Normal right ventricular systolic function. Unable to assess right sided pressures due to lack of measurable tricuspid regurgitation. Left Atrium: The left atrium is normal in size. Measurements Left Ventricle Label Value Normal Value LVOTd 1.9 cm (18cm - 20cm) LVOT PGmax 6 mmHg LVEF visual 50 % LVDd, 2D 4.72 cm (3.9cm - 5.3cm) LVDs, 2D 3.52 cm (2.1cm - 4cm) IVSd, 2D 0.8 cm (0.6cm - 1.1cm) LVPWd, 2D 0.75 cm (0.6cm - 0.9cm) LV Mass, 2D ASE 118.19 g LV Mass Index, 2D ASE 48.6 g/m?? (44g/m?? - 88.4g/m??) RWT, MM 0.32 (0 - 0.42) LVSVI, 2D 21 ml/m2 Right Ventricle Label Value Normal Value RVDd, 2D 2.85 cm (1.9cm - 3.8cm) TAPSE 2 cm Left Atrium Label Value Normal Value LA Volume, BP 30 ml (22ml - 52ml) LADs, 2D 3.5 cm (2.7cm - 3.8cm) LAESV index, BP 12.3 ml/m?? Right Atrium Label Value Normal Value RA Area 8 cm?? Aortic Valve Label Value Normal Value AV DVI 0.96 Mitral Valve Label Value Normal Value MV E Vmax 0.63 m/s MV A Vmax 0.99 m/s MV E/A 0.64 MV E/E' lateral 5.3 MV E' lateral 0.12 m/s Aorta Label Value Normal Value AoRoot, 2D 3.3 cm (1.4cm - 3.8cm) Valvular Assessment LVOT 0.7 - 1.1 m/sec Aortic Valve 1.0 - 1.7 m/sec Mitral Valve 0.6 - 1.3 m/sec Tricuspid Valve 0.3 - 0.7 m/sec Pulmonic Valve 0.6 - 0.9 m/sec Regurgitation Trivial No No No Max Velocity 1.21 m/sec 1.26 m/s 0.63 m/sec 0.95 m/s Max Gradient 6.00 mmHg 4.00 mmHg Valve Area 2.7 cm?? Findings Left Ventricle: The left ventricle is normal size. Global left ventricular systolic function is at lower limits of normal. The EF is 50 % visually. Left ventricular wall thickness is normal. The septum is abnormal in its motion. Normal diastolic function. No left ventricular hypertrophy. Right Ventricle: The right ventricle is normal in size. Normal right ventricular systolic function. Unable to assess right sided pressures due to lack of measurable tricuspid regurgitation. Left Atrium: The left atrium is normal in size. Right Atrium: The right atrium is normal in size. Mitral Valve: Mitral valve appears normal. No mitral regurgitation. Aortic Valve: The aortic valve is normal. Trivial aortic valve regurgitation. Tricuspid Valve: Normal tricuspid valve. No tricuspid regurgitation. Pulmonic Valve: Normal pulmonary valve. No pulmonary regurgitation. Aorta: The aortic root is normal in size. Great Vessels: IVC: The IVC is not well visualized, but appears to be dilated. Pericardium: No pericardial effusion. Procedure Staff Reading Group: [facility] [employer] Specialist: Tomer Azul RDCS Ordering Physician: LEO ORTEGA NT LABS: No results found for: WBC , HGB , HCT , PLT , INR , PTT , SODIUM , K , CL , CO2 , CALCIUM , ALKPHOS , ALBUMIN , GLU , HGBA1C , ALT , AST , CREATININE , BUN , GFR , EGFR *Please note that labs listed above are the most recent lab values available in [facility] at the time ofthe appointment. ASSESSMENT / DIAGNOSIS: Linked DX: BREAST LESION RIGHT PLAN: Keila Richardson is scheduled for Case Date: 03/17/2024 Linked Surgeon: Maria E Alan MD Linked Procedure: Magnetic Seed Localization Excision/Biopsy Mass Breast - Right. Pt requests please pay special attention to the right hip and right shoulder with positioning as both of these joints are painful and pending replacement. Lexie Grigsby, ASIAN STUDIES PROFESSOR-TRAFFIC DIRECTOR 03/11/24 1151 TOMAS Issa 03/11/24 1153 documented in this encounterSt. [facility] HospitalBooshaka [id number] Instructions* Patient Instructions* Dodie Leach RN - 03/11/2024 9:30 AM EST :Your surgery/procedure is scheduled at [facility] on 03/17/24 at 10:30 Arrival Time 8:30 [facility] Address: [address] [place] [address], [facility], [address] [place] [address] in the Emergency Center Parking lot. Report to the front office representative in the Emergency/Surgery Registration lobby of the hospital. Notify your SURGEON if you develop any illness such as a cold, cough, fever, sore throat, vomiting or are hospitalized between now and your surgery. Please call Pre-Admission Clinic at [phone] if you have any questions prior to surgery. For questions the morning of surgery, call the Pre-op Department at [phone]. Medication Instructions (Do not stop your medications without consulting the prescribing physician). Take the following medications the morning of surgery with a sip of water: none Diabetic or Weight loss medications: HOLD none LAST DOSE none Take inhalers as prescribed the morning of surgery. Due to the risk associated with these medications. If these medications are not held per instruction below, your surgery is at an increased risk for cancellation SGLT2 Medications- Hold 3 days prior to surgery: Jardiance, Empagliflozin, Farxiga, Dapagliflozin, Invokana, Canagliflozin, Trijardy, Synjardy GLP-1 Medications (Injection or Pill)- If taken daily hold day of surgery. If taken weekly, hold 1 week prior to surgery: Adlyxin, Byetta, Bydureon, Ozempic, Rybelsus,Trulicity, Victoza, Wegovy, Lixisenatide, Exenatide, Semaglutide, Dulaglutide, Liraglutide GIP/GLP-1(Injection or Pill)- If taken daily hold day of surgery. If taken weekly, hold 1 week prior to surgery: Mounjaro . Blood thinners: Please contact your prescribing physician regarding a stop/hold date for these medications. Medications such as Coumadin, Heparin, Aspirin, Plavix, Eliquis, Pradaxa Diabetics: If you take insulin, contact your prescribing doctor for instructions on how to manage this the night before and the morning of surgery. Non-steriodal Anti-Inflammatory Drugs (NSAIDS)- Hold 3 days prior to surgery unless otherwise directed by your surgeon. Vitamins/Herbal Products: You may continue to take your prescribed vitamins such as potassium, iron, vitamin B, vitamin C, or multivitamin unless specifically instructed by your surgeon to hold. STOPtaking all herbal products/teas one week prior to your surgery. Marijuana: Stop marijuana 72 hours prior to surgery, stop CBD oil 48 hours prior to surgery. If you have been given bowel prep instructions by your surgeon, please call the surgeon's office with any questions about these instructions. What do I do the day of Surgery? Age 2 through adult - Stop all solids by midnight, You may have clear liquids up to 2 hours before surgery, unless otherwise instructed by your surgeon Clear liquids are: water, sports drinks such as Gatorade or G2, or apple juice. You may NOT have: tube feedings, dairy products, alcoholic beverages, orange juice, or any liquids with solids or pulp in it If applicable, shower again with CHG soap the morning of your surgery. If you received a green plastic bracelet, bring it with you the day of surgery and your nurse will put it on you. What do I need to do to prepare for surgery? If you will be going home the same day as your surgery, arrange for an adult over [address] Riding in a bus or taxi by yourself is not permitted. You should not smoke or drink alcohol 24 hours before your surgery. Smoking increases the risk of breathing problems after surgery. Alcohol thins the blood and may cause bleeding problems during surgery If you have been assigned SURINDER Education by your surgeon's office, please complete this education prior to your surgery. For questions regarding SURINDER education, reach out to your surgeons office. If you have been given a prescription for occupational, physical or speech therapy, please set up these appointments before your procedure. If you would like to schedule therapy at a [facility] facility, please call [phone] ([phone]). Do not use lotions, creams, powders, perfume, make up, cologne or after-shaves day of surgery. Remove ALL jewelry including wedding rings, body piercings, hair extensions that contain metal, nail portuguese, make-up, and contact lens. You may brush your teeth the morning of surgery, but do not swallow the water. Wear your dentures and partial plates to the hospital (no adhesive). Shower the night the before. If applicable, use the CHG (chlorhexidine gluconate) soap or wipes. Please be advised, [facility] has transitioned to a cashless payment system. What should I bring to the hospital? If you received a green plastic bracelet, bring it with you the day of surgery and your nurse will put it on you. Eyeglass or contact lens case If you will be spending the night, please bring personal care items and leave them in the car untilyou are taken to your room after surgery. Leave ALL valuables at home. If any of these instructions conflict with those you recieved from the surgeon, please seek clarification from your surgeon's office. DEEP BREATHING EXERCISES This exercise helps promote good air exchange and helps to prevent pneumonia after surgery. Breathe in slowly and deeply through the nose. Hold your breath for a few seconds and then exhale slowly through the mouth. Repeat this three times and then cough. Coughing helps to clear your lungs. If you have had a surgery with an incision into your abdomen or chest, press gently against your incision with a pillow or a folded blanket when you cough. Please be aware - it may not be mc to cough following some types of surgeries involving the eyes,ears, sinuses and throat. Always follow your doctor's instructions. LEG EXERCISES These exercises help promote good circulation and help to prevent blood clots after surgery. Point your toes to the ceiling and then point them to the wall. Do this slowly about 15-20 times. You may also move your feet in circles. Do the exercise that is most comfortable for you. If you have had surgery involving your shoulder or arm, we recommend you move your fingers. PRACTICING We ask that you begin practicing these exercises before your surgery. After surgery try to do both exercises at least every 2 hours during the day and early evening. SURGICAL SITE INFECTION AND PREVENTION What is a Surgical Site Infection? Infection can happen to the area of the body where surgery is done. This is called a surgical site infection (SSI). A SSI does not happen very often. Can SSIs be treated? Antibiotics are used to treat SSI. Some patients may need another surgery to treat the infection. The doctor will discuss treatment options with you. What are some of the things that hospitals are doing to prevent SSIs? Soap and water or alcohol hand rub are used before and after caring for each patient.Special soap is used to clean surgery workers hands and arms just before the surgery. Masks, gowns, gloves and hair covers are worn during the surgery to keep the area clean. Hair in the surgery area may be removed with clippers (not razors). A special soap that kills germs is used to clean the skin at the surgery site. Antibiotics may be given before the surgery starts. What can you do to prevent SSIs? Before surgery: You may be asked to shower or bathe with a special soap that kills germs the night before and the day of surgery. Use the soap as you were told. If you smoke, stop or cut down. Ask your doctor about ways to quit. Do not shave near where you will have surgery. Shaving can irritate the skin and make it easier to get and infection. After surgery: Be sure that the doctors and nurses clean their hands before and after touching you. Be sure your family and friends clean their hands before and after visiting you. Do not be afraid to remind them. * Care for your wound at home as told by your doctor or nurse * Call your doctor right away if you have fever, redness, increased pain, or drainage at the surgery site. Further questions? Contact the doctor, nurse or the Infection Prevention and Control department if you have any questions. PATIENT RIGHTS AND RESPONSIBILITIES As a patient at [facility], you have the right to: Receive medical care and be informed of who is taking care of you Be treated with dignity and respect Have a family member/business representative of choice and your physician notified of your admission Receive information and actively participate in decisions about your care and treatment Refuse care, treatment and services Decide who may provide your support and speak for you Access anabaptist and spiritual services Participate in ethical issues and questions about your care Receive private and confidential care Have appropriate assessment and management of your pain Know guest visitation restrictions or limitations Have an advance directive Access protective services Consent or refuse to participate in research studies or production or recordings, films or other images Have resolution of your complaints Receive information of hospital charges and payment methods Patient/patient business representative responsibilities are to: Provide information about health status to facilitate care, treatment and services Follow the treatment, plan, keep appointments and speak up when you do not understand the plan Respect the rights of other patients and healthcare personnel Follow organizational rules and regulations that support quality care and a safe environment Fulfill financial obligations as promptly as possible Bathing Before Surgery- Patients greater than 2 months of age You can help to lower your chance of infection at the site of your surgery by showering or bathing with a special soap called chlorhexidine gluconate (CHG). Germs live on your skin. This special soapwill help lower the amount of germs so they do not get into your surgery site. Special points to know: Do not use this soap if you know that you are allergic to CHG. Shower or bathe with CHG the night before and the morning of surgery. Do not shave the area of your body where the surgery will be done within 7 days of surgery. The CHG may make your skin a little dry, but do not use lotion. Steps for Bathing: Wash your hair as usual with your normal shampoo. Rinse your hair and body well after you shampoo to get rid all of the shampoo. Wash gently with the CHG from the neck down, but do not scrub the skin to hard. Be sure to wash thearea of your surgery very well. If showering, turn the water off while washing and then turn the water back onto rinse. Do not get CHG in the genital (private) area. Do not get CHG in the eyes, ears, nose or mouth. (If the soap gets into the eyes, flush them immediately with water). Do not wash with regular soap after CHG is used. Pat skin dry with a soft, clean towel. Patient should sleep in freshly laundered night clothes and report for surgery in clean clothes. [facility] Miscellaneous Notes* Perioperative Nursing Note - Dodie Leach RN - 03/11/2024 9:30 AM EST Noted to Lexie MCKEON Adipex last dose was 03/10/24, 6 day hold not 7/ Lexie called anesthesia. Ok for OR03/17/24 documented [facility] Nurse Note* Perioperative Nursing Note - Dodie Leach RN - 03/11/2024 9:30 AM EST Noted to Lexie MCKEON Adipex last dose was 03/10/24, 6 day hold not 7/ Lexie called anesthesia. Ok for OR03/17/24 [facility] History of Present illness Narrative* KELVIN Blankenship - 03/03/2024 8:40 AM EST Reason for Appointment: Patient ID: Keila Richardson is a 53 y.o. female who presents for Weight Management Patient presents today for Weight Management Consult. MEDICATIONS Current Outpatient Medications Medication Instructions ascorbic acid (VITAMIN C) 500 mg, Oral, Daily Boswellia Teresa (BOSWELLIA PO) Oral fluticasone (Cutivate) 0.05 % cream Topical, 2 times daily metFORMIN XR (GLUCOPHAGE-XR) 500 mg, Oral, Daily with evening meal, Do not crush, chew, or split. Milk Thistle 1000 MG capsule Oral Multiple Vitamin (multivitamin) capsule 1 capsule, Oral, Daily omega-3 (Fish Oil) 1000 MG capsule 1 capsule, Every 24 hours phentermine (ADIPEX-P) 37.5 mg, Oral, Daily before breakfast phentermine (ADIPEX-P) 37.5 mg, Oral, Daily before breakfast phentermine (ADIPEX-P) 37.5 mg, Oral, Daily before breakfast Turmeric 500 MG capsule Oral zinc 50 MG tablet Oral ALLERGIES Allergies Allergen Reactions Wound Dressing Adhesive Rash PROBLEMS Active Ambulatory Problems Diagnosis Date Noted Asthmatic bronchitis (CMS/HCC) 08/06/2023 Difficulty walking 08/06/2023 Elevated erythrocyte sedimentation rate 08/06/2023 HLA B27 positive 08/06/2023 Mild intermittent asthma with acute exacerbation ([facility]) 08/06/2023 Primary localized osteoarthritis of pelvic region and thigh 08/06/2023 Primary osteoarthritis of left hip 08/06/2023 S/P total left hip arthroplasty 08/06/2023 Closed fracture of right distal femur ([facility]) 08/11/2023 Encounter for prophylactic measures, unspecified 08/11/2023 History of total knee arthroplasty 08/11/2023 Hypokalemia 08/11/2023 Hyponatremia 08/11/2023 Impaired mobility and ADLs 08/11/2023 Nicotine dependence 08/11/2023 Morbid (severe) obesity due to excess calories ([facility]) 08/11/2023 Postoperative anemia due to acute blood loss 08/11/2023 Postoperative pain 08/11/2023 Right femoral fracture ([facility]) 01/18/2021 Right leg pain 08/11/2023 Status post fall 08/11/2023 Eczema of both hands 08/11/2023 Annual physical exam 08/11/2023 Benign essential hypertension ([facility]) 08/11/2023 Body mass index [BMI] 40.0-44.9, adult (Z68.41) 08/11/2023 Screening for malignant neoplasm of colon 08/11/2023 Resolved Ambulatory Problems Diagnosis Date Noted No Resolved Ambulatory Problems Past Medical History: Diagnosis Date Allergic Arthritis Glaucoma ([facility]) HISTORY PAST MEDICAL HISTORY SOCIAL HISTORY Past Medical History: Diagnosis Date Allergic Arthritis Glaucoma ([facility]) Social History Tobacco Use Smoking status: Never Smokeless tobacco: Never Substance Use Topics Alcohol use: Not on file Drug use: Not on file FAMILY HISTORY No family history on file. SURGICAL HISTORY Past Surgical History: Procedure Laterality Date CT ANGIOGRAM HEART CORONARY 11/28/2021 CT ANGIOGRAM TAVR 11/28/2021 HYSTERECTOMY 2009 REVIEW OF SYSTEMS Review of Systems: Review of Systems Constitutional: Negative. HENT: Negative. Eyes: Negative. Respiratory: Negative. Cardiovascular: Negative. Gastrointestinal: Negative. Genitourinary: Negative. Musculoskeletal: Negative. Skin: Negative. Neurological: Negative. All other systems reviewed and are negative. Hematological: Negative. Endocrine: Negative. Allergic/Immunologic: Negative. OBJECTIVE Objective: Physical Exam Constitutional: Appearance: Normal appearance. She is normal weight. HENT: Head: Normocephalic. Cardiovascular: Rate and Rhythm: Normal rate. Pulses: Normal pulses. Pulmonary: Effort: Pulmonary effort is normal. Breath sounds: Normal breath sounds. Abdominal: Palpations: Abdomen is soft. Musculoskeletal: General: Normal range of motion. Neurological: General: No focal deficit present. Mental Status: She is alert and oriented to person, place, and time. Psychiatric: Mood and Affect: Mood normal. Behavior: Behavior normal. Thought Content: Thought content normal. Judgment: Judgment normal. Vitals and nursing note reviewed. Vitals: Estimated body mass index is 36.7 kg/m as calculated from the following: Height as of 11/25/23: 5' 10 . Weight as of this encounter: 255 lb 12.8 oz. BP: 116/78 No LMP recorded. Patient has had a hysterectomy. ASSESSMENT & PLAN ICD-10-CM 1. Encounter for weight management Z76.89 phentermine (Adipex-P) 37.5 MG tablet Patient presents today for Adipex prescription. Patient desires additional weigh loss and she is currently taking metformin along with working out to achieve further results. The possibility of Ozempic for future use has been discussed. Weight and blood pressure has been captured and it has been discussed/reiterated the importance of keeping a food journal, proper nutrition/diet, and exercise regimen. Patient verbalized understanding. Patient has lost more than 5% of her initial body weight Patient was seen by urology and wants a second opinion for bladder suspension. She is going to check insurance with DR Cardenas and call office for referral if needed Follow Up: Patient is to return to the office in 3 month for further evaluation to assess patient progress. Documented by KELVIN Blankenship documented in this encounterUniversity [id number] History of Present illness Narrative* KELVIN Bal - 02/12/2024 11:30 AM EST Images from the original note were not included. Chief Complaint: Right fibroepithelial lesion HPI: I had the pleasure of meeting Keila Richardson today. She is a very pleasant 53 y.o. female who presents today for recommendations regarding a right breast biopsy showing a fibroepithelial lesion.She underwent bilateral screening mammogram (10/01/2023) in [place] which demonstrated 2 adjacent 5mm slightly spiculated nodules within anterior lower outer quadrant - BIRADS 0. Right diagnostic mammogram and right breast ultrasound (11/04/2023) in [place] showed spot magnification views demonstrating a slightly irregular 7 x 4 x 5 mm mass within the anterior lower-outer quadrant; ultrasound evaluation demonstrated a mixed cystic and solid irregular mass 6 x 4 x 3 millimeters which is taller than wide and is slightly hyperechoic along its margins - BIRADS 4. She underwent ultrasound guided right breast biopsy (11/12/2023). Pathology showed a fibroepithelial lesions (fibroadenoma vs phyllodes). [facility] report is not available. Prior to biopsy patient was not feeling any masses in her breast. She developed a hematoma post biopsy that has only recently resolved. She denies changes to her breasts including masses, skin changes, nipple lesions or nipple discharge. Her family history is positive for a maternal aunt with ovarian cancer in her 50-60s and her mom with skin cancer in her60s. Patient denies family history of breast cancer. No prior breast surgery. NCI lifetime risk asse ssment performed by radiology (11/04/2023) showed a 9.60% lifetime risk of developing breast cancer. GYNECOLOGIC HISTORY & RISK ASSESSMENT: First day of last menstrual period (if still having periods): No LMP recorded. (Menstrual status: Hysterectomy - Partial). Age at which you started menses (periods): 12-13 yrs Have you ever used hormonal control (patch, pill, shot, implant, IUD)? No What is your current control method, if applicable? N/A Have you ever been and, if so, how many times? 2 How many children do you have? 2 How old were you at your first delivery? 26-29 yrs Did you breastfeed? No Have you had a hysterectomy? Yes Do you have your ovaries? Yes Age at start of menopause: < 50 yrs Have you ever used hormone replacement therapy? No Using currently? No How many breast biopsies have you had, including this one, if applicable? 1 Have you had breast surgery before? No Date/side/reason: N/A Have you or any family members had genetic testing? No Do you have Ashkenazi Islam ancestry? No Reviewed notes from [facility] dated (12/16/2023), imaging including bilateral screening mammogram, right diagnostic mammogram/right ultrasound dated (10/01/2023)(11/04/2023), pathology dated (11/12/2023) and her history form dated (02/12/2024). Past Medical History History reviewed. No pertinent past medical history. Past Surgical History Past Surgical History: Procedure Laterality Date FEMUR FRACTURE SURGERY 2020 FEMUR FRACTURE SURGERY 2021 HYSTERECTOMY 2008 PARTIAL HIP ARTHROPLASTY 2021 REPLACEMENT TOTAL KNEE Left 2011 REPLACEMENT TOTAL KNEE Right 2011 Family History Family History Problem Relation Age of Onset Hypertension Mother Skin cancer Mother Hypertension Father Diabetes Sister Hypertension Sister Lupus Sister Fibromyalgia Sister Hypertension Sister Hypertension Sister Hypertension Sister Hypertension Brother Breast cancer Maternal Aunt Ovarian cancer Maternal Aunt Stomach cancer Maternal Grandmother Lung cancer Maternal Grandfather Colon cancer Paternal Grandfather Current Medications Current Outpatient Medications: ascorbic acid (VITAMIN C) 500 mg tablet, Take 1 tablet (500 mg total) by mouth in the morning., Disp: , Rfl: BOSWELLIA TERESA-TURMERIC XT ORAL, , Disp: , Rfl: fluticasone propionate (CUTIVATE) 0.05 % cream, Apply 1 Application topically in the morning and 1 Application before bedtime., Disp: , Rfl: latanoprost (XALATAN) 0.005 % ophthalmic solution, Administer 1 drop to both eyes nightly., Disp: ,Rfl: magnesium oxide 200 mg magnesium tablet, Take 200 mg by mouth once daily at bedtime., Disp: , Rfl: metFORMIN (FORTAMET) 500 MG (OSM) 24 hr tablet, Take 1 tablet (500 mg total) by mouth daily with breakfast., Disp: , Rfl: mirabegron (MYRBETRIQ) 50 mg tablet extended release 24 hr, Take 1 tablet (50 mg total) by mouth inthe morning., Disp: 30 tablet, Rfl: 2 omega 6-yga-ddf-fish oil 100-400-1,000 mg capsule, Take 1 capsule by mouth in the morning. [place] 3 600 mg, d3 50 mg., Disp: , Rfl: phentermine (ADIPEX-P) 37.5 mg tablet, Take 1 tablet (37.5 mg total) by mouth every morning before breakfast., Disp: , Rfl: solifenacin (VESICARE) 5 mg tablet, Take 1 tablet (5 mg total) by mouth in the morning., Disp: 30 tablet, Rfl: 5 vibegron (GEMTESA) 75 mg tablet, Take 75 mg by mouth in the morning., Disp: 30 tablet, Rfl: 5 Allergies Allergies Allergen Reactions Tape [Adhesive] Social History Social History Substance and Sexual Activity Alcohol Use Yes Comment: Socially Social History Tobacco Use Smoking Status Former Types: Cigarettes Smokeless Tobacco Never Social History Substance and Sexual Activity Drug Use Not Currently ROS Review of Systems Eyes: Positive for visual disturbance (glaucoma). Genitourinary: Positive for frequency. Musculoskeletal: Positive for arthralgias. All other systems reviewed and are negative. Breast: negative for masses, skin changes, nipple discharge or pain Objective: Her weight is 119.8 kg (264 lb 3.2 oz). Her temperature is 36.3 C (97.3 F). Her blood pressure is 132/89 and her pulse is 88. Constitutional: awake, alert, no apparent distress. Head: normocephalic, atraumatic. Eyes: conjunctiva normal bilaterally; EOMI. Neck: supple; no lymphadenopathy. Neurologic: oriented to place, person, and situation. Psychiatric: appropriately interactive with provider; normal mood and affect. Examination of the right breast was normal; no masses, concerning skin lesions, nipple lesions or nipple discharge. Examination of the left breast was normal; no masses, concerning skin lesions, nipple lesions or nipple discharge. She has no axillary lymphadenopathy. ASSESSMENT -Right core biopsy showing fibroepithelial lesions (fibroadenoma vs phyllodes) -Abnormal breast imaging PLAN Reviewed history, imaging, pathology and clinical exam with patient. No concerning findings on clinical exam. Discussed spectrum of fibroepithelial lesions. Given that the pathology report questions a phyllodes tumor, recommend magseed localized excisional biopsy. Discussed in detail with patient. On her screening mammogram, two nodules were noted in the right breast but only one was biopsied. Will request review of prior imaging by our breast radiologist to see if additional workup is needed. If no additional workup is needed, will move forward with right magseed localized excisional biopsy.Will plan to use silk adhesive at the time of surgery given prior reaction to steri strips. Encouraged patient to reach out with any questions or concerns. Anila Almaguer PA-C Breast Surgery KELVIN Bal 02/12/24 [id number] documented in this [facility]25 History of Present illness Narrative* Emily Oleary MD - 02/12/2024 10:15 AM EST CC: Follow up HPI: Ms. Richardson is a pleasant, 53-year-old, para 2, referred 2 mos ago, by , for evaluation of prolapse and urinary incontinence. The incontinence had been a problem for several years. She stated that a bladder sling was previously planned but had to be delayed due to other health issues. She leaked urine several times per day in large amounts. She used more than 6 pads daily. The vast majority of her leakage occurred with urgency but she also reported postural incontinence and Valsalva related leakage. She voided twice nightly. She had in the past trialed medication but it had been several years and she did not recall the name. She noted newer symptoms of vaginal bulging. This had been present for a few weeks. Bulging did notprotrude past the introitus. No associated pain but she does have some discomfort. No bleeding or drainage. She does have to digitate to facilitate bowel movements. She does not have to digitate to facilitate bladder emptying. No prior treatments for prolapse. She is status post hysterectomy for heavy bleeding in 2008. She denies chronic constipation, chronic diarrhea, and fecal incontinence. She is not currently sexually active due to the prolapse. Initial pelvic examination revealed stage II anterior-posterior compartment prolapse to -1. SST wasnegative. PVR was normal. Urinalysis was negative. We opted to trial a medication for her urgency incontinence symptom as this seemed to be the primary bothersome issue for her. She has been on solifenacin 5 mg once daily over the last several weeks.We could not get a beta agonist covered by her insurance. She notes some decreased frequency and urgency. She thinks the incontinence is largely unchanged. She denies significant side effects. No past medical history on file. Past Surgical History: Procedure Laterality Date FEMUR FRACTURE SURGERY 2020 FEMUR FRACTURE SURGERY 2021 HYSTERECTOMY 2009 PARTIAL HIP ARTHROPLASTY 2021 REPLACEMENT TOTAL KNEE Left 2011 REPLACEMENT TOTAL KNEE Right 2011 Current Outpatient Medications Medication Instructions ascorbic acid (VITAMIN C) 500 mg, Daily BOSWELLIA TERESA-TURMERIC XT ORAL fluticasone propionate (CUTIVATE) 0.05 % cream 1 Application, 2 times daily latanoprost (XALATAN) 0.005 % ophthalmic solution 1 drop, Nightly magnesium oxide 200 mg, Bedtime metFORMIN (FORTAMET) 500 mg, Daily with breakfast omega 0-pvg-vwq-fish oil 100-400-1,000 mg capsule 1 capsule, Daily phentermine (ADIPEX-P) 37.5 mg, Every morning before breakfast solifenacin (VESICARE) 10 mg, oral, Daily Allergies Allergen Reactions Tape [Adhesive] PE: BP 142/80 Ht 177.8 cm (5' 10 ) Wt 119.6 kg (263 lb 9.6 oz) BMI 37.82 kg/m A/P: 1. Mixed stress and urge urinary incontinence (Primary) 2. Postural urinary incontinence 3. Cystocele with rectocele 4. OAB (overactive bladder) She has had modest improvement in her urinary symptoms on low-dose anti muscarinic therapy. We willproceed with a course of high-dose anti muscarinic therapy. She was counseled regarding potential side effects. She has stage II anterior-posterior compartment prolapse. This is somewhat symptomatic at this time. She may want this treated regardless of improvement in urinary symptoms with medication trial. She is going to consider her options. I explained to her that surgical correction of prolapse would be unlikely to address her urge base urinary symptoms. I also explained to her that first-line treatments for urge predominant mixed incontinence would include dietary and behavioral modificat ion, pelvic floor strengthening, and medication trial. Stress incontinence is typically addressed with surgical intervention and this could be done concomitantly with surgical repair of her prolapse.We will reassess symptoms in about 8 weeks. Solifenacin 10 mg sent to her pharmacy. documented in this encounterOhioHealth Dublin [facility] HospitalAeonmed [facility] [id number] Miscellaneous Notes* Telephone Encounter - ERICA Mishra - 12/17/2023 1:14 PM EST Patient called in and said that the Myrbetriq is not covered and is over $500 for her. She wants toknow can you call something else in that will be covered and is less expensive. * Telephone Encounter - Emily Oleary MD - 12/17/2023 1:14 PM EST Is Gemtesa 75 mg covered? * Telephone Encounter - ERICA Mishra - 12/17/2023 1:14 PM EST Most likely not covered. Usually if Myrbretriq is not neither is Gemtesa. * Telephone Encounter - Emily Oleary MD - 12/17/2023 1:14 PM EST You may be right but some insurers are preferentially covering Gemtesa now, like [employer]. Can we try sending and see please. Gentesa 75 mg once daily, #30, 5 Rfs. * Telephone Encounter - ERICA Mishra - 12/17/2023 1:14 PM EST I spoke with patient and let her know we were sending the Gemtesa, but if not covered to call office. When I was putting prescription in, message popped up and said not covered so I have a feeling this is may not be covered under her insurance plan. documented in this encounterOhioHealth Dublin [facility] HospitalA[facility] [id number] Telephone encounter Note* Telephone Encounter - ERICA Mishra - 12/17/2023 1:14 PM EST Patient called in and said that the Myrbetriq is not covered and is over $500 for her. She wants toknow can you call something else in that will be covered and is less expensive. [facility] [id number] Telephone encounter Note* Telephone Encounter - Emily Oleary MD - 12/17/2023 1:14 PM EST Is Gemtesa 75 mg covered? [facility]11-07-2024 Telephone encounter Note* Telephone Encounter - ERICA Mishra - 12/17/2023 1:14 PM EST Most likely not covered. Usually if Myrbretriq is not neither is Gemtesa. [facility]11-07-2024 Telephone encounter Note* Telephone Encounter - Emily Oleary MD - 12/17/2023 1:14 PM EST You may be right but some insurers are preferentially covering Gemtesa now, like [employer] [facility]. Can we try sending and see please. Gentesa 75 mg once daily, #30, 5 Rfs. [facility]11-07-2024 Telephone encounter Note* Telephone Encounter - ERICA Mishra - 12/17/2023 1:14 PM EST I spoke with patient and let her know we were sending the Gemtesa, but if not covered to call office. When I was putting prescription in, message popped up and said not covered so I have a feeling this is may not be covered under her insurance plan. [facility]11-06-2024 History of Present illness Narrative* Angela Thrasher DO - 12/16/2023 2:30 PM EST SUBJECTIVE Chief Complaint: Urinary incontinence and pelvic organ prolapse HPI Ms. Keila Richardson is a 53 y.o. female who is referred by Dr. Belinda DO for urinary incontinence and pelvic organ prolapse. The patient reports longstanding history of urinary urgency for +10 years. She reports being seen previously for the same problem, and tried medication with no improvement. She is unable to recall the name of the medication. The patient describes positional urinary leakage and has been soaking through 10+ pads a day. The patient also endorses symptoms of vaginal bulge for the past few weeks. She reports having to splint in order to empty her bladder and have bowel movements. The patient reports nocturia x2 nightly. She denies any significant pain. She denies any dysuria or history of frequent urinary tract infections. Her last pap was 09/28/23. Gynecology provider: Dr. Trevino Previous gynecology or urology related surgeries/procedures include JOSE in 2008 ([place]) History reviewed. No pertinent past medical history. Past Surgical History: Procedure Laterality Date FEMUR FRACTURE SURGERY 2020 FEMUR FRACTURE SURGERY 2021 HYSTERECTOMY 2009 PARTIAL HIP ARTHROPLASTY 2021 REPLACEMENT TOTAL KNEE Left 2011 REPLACEMENT TOTAL KNEE Right 2011 Social History Tobacco Use Smoking status: Former Types: Cigarettes Smokeless tobacco: Never Vaping Use Vaping status: Never Used Substance Use Topics Alcohol use: Yes Comment: Socially Drug use: Not Currently Family History Problem Relation Age of Onset Hypertension Mother Skin cancer Mother Hypertension Father Diabetes Sister Hypertension Sister Lupus Sister Fibromyalgia Sister Hypertension Sister Hypertension Sister Hypertension Sister Hypertension Brother Breast cancer Maternal Aunt Ovarian cancer Maternal Aunt Stomach cancer Maternal Grandmother Lung cancer Maternal Grandfather Colon cancer Paternal Grandfather Current Outpatient Medications: ascorbic acid (VITAMIN C) 500 mg tablet, Take 1 tablet (500 mg total) by mouth in the morning., Disp: , Rfl: BOSWELLIA TERESA-TURMERIC XT ORAL, , Disp: , Rfl: fluticasone propionate (CUTIVATE) 0.05 % cream, Apply 1 Application topically in the morning and 1 Application before bedtime., Disp: , Rfl: latanoprost (XALATAN) 0.005 % ophthalmic solution, Administer 1 drop to both eyes nightly., Disp: ,Rfl: magnesium oxide 200 mg magnesium tablet, Take 200 mg by mouth once daily at bedtime., Disp: , Rfl: metFORMIN (FORTAMET) 500 MG (OSM) 24 hr tablet, Take 1 tablet (500 mg total) by mouth daily with breakfast., Disp: , Rfl: omega 2-sjo-rty-fish oil 100-400-1,000 mg capsule, Take 1 capsule by mouth in the morning. [place] 3 600 mg, d3 50 mg., Disp: , Rfl: phentermine (ADIPEX-P) 37.5 mg tablet, Take 1 tablet (37.5 mg total) by mouth every morning before breakfast., Disp: , Rfl: mirabegron (MYRBETRIQ) 50 mg tablet extended release 24 hr, Take 1 tablet (50 mg total) by mouth inthe morning., Disp: 30 tablet, Rfl: 2 ALLERGIES Tape [adhesive] Review of Systems Constitutional: Negative for chills, fatigue and fever. HENT: Negative for sore throat. Respiratory: Negative for cough and shortness of breath. Cardiovascular: Negative for chest pain and palpitations. Gastrointestinal: Negative for abdominal pain, constipation, diarrhea, nausea and vomiting. Genitourinary: Positive for frequency and urgency. Negative for dysuria, hematuria, menstrual problem, pelvic pain, vaginal bleeding, vaginal discharge and vaginal pain. Musculoskeletal: Negative for back pain. Skin: Negative for rash. Neurological: Negative for dizziness, light-headedness and headaches. All other systems reviewed and are negative. OBJECTIVE VITAL SIGNS BP 115/81 (BP Site: Left Arm, BP Postition: Sitting, BP CUFF SIZE: M (9-13 inches)) Pulse 80 Comment: 98o2 Resp 16 Ht 179.1 cm (5' 10.5 ) Wt 119.3 kg (263 lb) BMI 37.20 kg/m PHYSICAL EXAM Constitutional: General: She is not in acute distress. Cardiovascular: Rate: Normal rate. Lower extremity edema: none. Pulmonary: Effort: No respiratory distress, normal effort. Abdominal: General: There is no distension. Palpations: Abdomen is soft. There is no hepatomegaly, splenomegaly or mass. Tenderness: There is no abdominal tenderness. Hernia: No hernia is observable. Musculoskeletal: Gait: normal Station: normal Skin: General: Skin is warm and dry. Coloration: Skin is not cyanotic or jaundiced. Neurological: Mental Status: She is alert and oriented to person, place, and time. Psychiatric: Mood and Affect: Mood and affect normal. Genitourinary: External exam Vulva and introitus: Normal appearance for age, no lesions, no erythema. Urethra: No prolapse, mass, urethral pain or urethral lesion. Bladder: Not tender, no distention. Bartholin's glands: Normal size, non-tender. Perineum/anus: Normal appearance, no lesions or hemorrhoids. Internal exam Vagina: Mucosa is healthy, no discharge. Cervix: absent Uterus: absent Adnexa: Bimanual exam limited per body habitus, ovaries not palpable, no tenderness or masses. Rectum: ALEK deferred. Anterior Wall -1 Aa Anterior Wall -1 Ba Cervix or Cuff -4 C Genital Hiatus 2 gH Perineal Body 3 pB TVL 6 TVL Posterior Wall -1 Ap Posterior Wall -1 Bp Posterior Fornix N/A D Standing Stress Test: negative Voided Volume: 300 PVR: 0 ASSESSMENT/PLAN ICD-10-CM 1. OAB (overactive bladder) N32.81 2. Urinary incontinence, unspecified type R32 3. Cystocele with rectocele N81.10 N81.6 Impression and Plan: 53 y.o. female with urge predominant mixed urinary incontinence. We discussed incontinence at length including epidemiology, pathophysiology, risk factors for development, associated symptoms, and treatment options. We discussed treatment options, from least to most invasive, including expectant management, medication trial, continence pessary. She was provided with written information on incontinence and overactive bladder from . Patient would like to trial medication. Prescription for Myrbetriq 50 mg daily was sent to her pharmacy. Patient also with stage 2 prolapse on examination. Discussed options including pessary or surgical management. Discussed that surgical management of prolapse would likely not improve urinary symptoms. Plan to follow up in 8 weeks for medication check. * Emily Oleary MD - 12/16/2023 2:30 PM EST I attest that I have personally seen and examined this patient and participated in the critical/keyportions of the service. I was directly involved in the management and treatment plan of the patient. I have reviewed and agree with the resident's evaluation and plan and note as documented above. Ms. Richardson is a pleasant, 53-year-old, para 2, referred by , for evaluation of prolapse and urinary incontinence. The incontinence has been a problem for several years. She states that a bladder sling was previously plan but had to be delayed due to other health issues. She leaks urine several times per day in large amounts. ANASTACIO is 12. She uses more than 6 pads daily. The vast majority of her leakage occurs with urgency but she also reports postural incontinence and Valsalva related leakage. She voids twice nightly. She denies dysuria, gross hematuria, frequent urinary tract infections. She denies symptoms of voiding dysfunction. She has in the past trialed medication but it has been several years and she does not recall the name. She notes newer symptoms of vaginal bulging. This has been present for a few weeks. Bulging does not protrude past the introitus. No associated pain but she does have some discomfort. No bleeding or drainage. She does have to digitate to facilitate bowel movements. She does not have to digitate to facilitate bladder emptying. No prior treatments for prolapse. She is status post hysterectomy for heavy bleeding in 2008. She denies chronic constipation, chronic diarrhea, and fecal incontinence. She is not currently sexually active due to the prolapse. History reviewed. No pertinent past medical history. Past Surgical History: Procedure Laterality Date FEMUR FRACTURE SURGERY 2020 FEMUR FRACTURE SURGERY 2021 HYSTERECTOMY 2009 PARTIAL HIP ARTHROPLASTY 2021 REPLACEMENT TOTAL KNEE Left 2011 REPLACEMENT TOTAL KNEE Right 2011 Current Outpatient Medications Medication Instructions ascorbic acid (VITAMIN C) 500 mg, Daily BOSWELLIA TERESA-TURMERIC XT ORAL fluticasone propionate (CUTIVATE) 0.05 % cream 1 Application, 2 times daily GEMTESA 75 mg, oral, Daily latanoprost (XALATAN) 0.005 % ophthalmic solution 1 drop, Nightly magnesium oxide 200 mg, Bedtime metFORMIN (FORTAMET) 500 mg, Daily with breakfast mirabegron (MYRBETRIQ) 50 mg, oral, Daily omega 3-bhn-mpc-fish oil 100-400-1,000 mg capsule 1 capsule, Daily phentermine (ADIPEX-P) 37.5 mg, Every morning before breakfast Allergies Allergen Reactions Tape [Adhesive] PE: BP 115/81 (BP Site: Left Arm, BP Postition: Sitting, BP CUFF SIZE: M (9-13 inches)) Pulse 80 Comment: 98o2 Resp 16 Ht 179.1 cm (5' 10.5 ) Wt 119.3 kg (263 lb) BMI 37.20 kg/m Genitourinary: External exam Vulva and introitus: Normal appearance for age, no lesions, no erythema. Urethra: No prolapse, mass, urethral pain or urethral lesion. Bladder: Not tender, no distention. Bartholin's glands: Normal size, non-tender. Perineum/anus: Normal appearance, no lesions or hemorrhoids. Internal exam Vagina: Mucosa is healthy, no discharge. Cervix: absent Uterus: absent Adnexa: Bimanual exam limited per body habitus, ovaries not palpable, no tenderness or masses. Rectum: ALEK deferred. Anterior Wall -1 Aa Anterior Wall -1 Ba Cervix or Cuff -4 C Genital Hiatus 2 gH Perineal Body 3 pB TVL 6 TVL Posterior Wall -1 Ap Posterior Wall -1 Bp Posterior Fornix N/A D Standing Stress Test: Negative Voided Volume: 300 mL PVR: 0 mL UA: Negative A/P: 1. Mixed stress and urge urinary incontinence (Primary) 2. Postural urinary incontinence 3. Cystocele with rectocele 4. OAB (overactive bladder) She has stage II anterior-posterior compartment prolapse. This is minimally symptomatic at this time. She is primarily concerned with the urinary incontinence. She was under the impression that this required surgery. I explained to her that surgical correction of prolapse would be unlikely to address her urinary symptoms. I also explained to her that first-line treatments for urge predominant mixed incontinence would include dietary and behavioral modification, pelvic floor strengthening, and medication trial. Stress incontinence is typically addressed with surgical intervention. She is willing to proceed with a medication trial and high-dose beta agonist was sent to her pharmacy although it does not appear that this will be covered. She had a normal postvoid residual consistent with normal emptying today. She had a negative urinalysis and no evidence of infection today. We will reassess symptoms in about 8 weeks. - mirabegron (MYRBETRIQ) 50 mg tablet extended release 24 hr; Take 1 tablet (50 mg total) by mouth in the morning. Dispense: 30 tablet; Refill: 2 [facility] History of Present illness Narrative* Yari Fernando - 11/25/2023 8:30 AM EDT Reason for Appointment: Patient ID: Keila Richardson is a 53 y.o. female who presents for Weight Management Patient presents today for a weight management consultation. Patient has been prescribed Adipex andshcinthia is here for her 2nd prescription. Today's Vitals: Estimated body mass index is 37.88 kg/m as calculated from the following: Height as of this encounter: 5' 10 . Weight as of this encounter: 264 lb. Previous Weight/BMI: Wt Readings from Last 2 Encounters: 11/25/23 264 lb 10/26/23 279 lb 6.4 oz BMI Readings from Last 2 Encounters: 11/25/23 37.88 kg/m 10/26/23 40.09 kg/m Allergies as of 11/25/2023 - Reviewed 11/25/2023 Allergen Reaction Noted Wound dressing adhesive Rash 08/06/2023 Past Medical History: Diagnosis Date Allergic Arthritis Past Surgical History: Procedure Laterality Date CT ANGIOGRAM HEART CORONARY 11/28/2021 CT ANGIOGRAM TAVR 11/28/2021 HYSTERECTOMY 2009 Assessment/Plan No diagnosis found. Adipex: Patient presents today for 2nd Adipex prescription. Patients weight and blood pressure has been captured and discussed with the patient. I have discussed/reiterated the importance of keeping a food journal, proper nutrition/diet, and exercise regimen while taking Adipex. Patient verbalized understanding and was given a printed prescription signed by provider to take to their local pharmacy. Follow Up: Patient is to return to the office in 3 months for further evaluation to assess patient progress. Weight and blood pressure will need to be obtained in order for patient to next prescription. Documented by: Yari King on behalf of KELVIN Blankenship documented in this encounterUniversity [id number] History of Present illness Narrative* KELVIN Blankenship - 10/26/2023 10:50 AM EDT Reason for Appointment: Patient ID: Keila Richardson is a 53 y.o. female who presents for Weight Management Patient presents today for Weight Management Consult. MEDICATIONS Current Outpatient Medications Medication Instructions ascorbic acid (VITAMIN C) 500 mg, Oral, Daily Boswellia Teresa (BOSWELLIA PO) Oral calcium citrate (Calcitrate) 950 (200 Ca) MG tablet TAKE TWO TABLETS BY MOUTH THREE TIMES DAILY cyclobenzaprine (Flexeril) 10 MG tablet 1 tablet, Oral, 3 times daily PRN fluticasone (Cutivate) 0.05 % cream Topical, 2 times daily metFORMIN XR (GLUCOPHAGE-XR) 500 mg, Oral, Daily with evening meal, Do not crush, chew, or split. Milk Thistle 1000 MG capsule Oral Multiple Vitamin (multivitamin) capsule 1 capsule, Oral, Daily omega-3 (Fish Oil) 1000 MG capsule 1 capsule, Every 24 hours phentermine (ADIPEX-P) 37.5 mg, Oral, Daily before breakfast Turmeric 500 MG capsule Oral zinc 50 MG tablet Oral ALLERGIES Allergies Allergen Reactions Wound Dressing Adhesive Rash PROBLEMS Active Ambulatory Problems Diagnosis Date Noted Asthmatic bronchitis ([facility]) 08/06/2023 Difficulty walking 08/06/2023 Elevated erythrocyte sedimentation rate 08/06/2023 HLA B27 positive 08/06/2023 Mild intermittent asthma with acute exacerbation ([facility]) 08/06/2023 Primary localized osteoarthritis of pelvic region and thigh 08/06/2023 Primary osteoarthritis of left hip 08/06/2023 S/P total left hip arthroplasty 08/06/2023 Closed fracture of right distal femur ([facility]) 08/11/2023 Encounter for prophylactic measures, unspecified 08/11/2023 History of total knee arthroplasty 08/11/2023 Hypokalemia 08/11/2023 Hyponatremia 08/11/2023 Impaired mobility and ADLs 08/11/2023 Nicotine dependence 08/11/2023 Morbid (severe) obesity due to excess calories ([facility]) 08/11/2023 Postoperative anemia due to acute blood loss 08/11/2023 Postoperative pain 08/11/2023 Right femoral fracture ([facility]) 01/18/2021 Right leg pain 08/11/2023 Status post fall 08/11/2023 Eczema of both hands 08/11/2023 Annual physical exam 08/11/2023 Benign essential hypertension ([facility]) 08/11/2023 Body mass index [BMI] 40.0-44.9, adult (Z68.41) 08/11/2023 Screening for malignant neoplasm of colon 08/11/2023 Resolved Ambulatory Problems Diagnosis Date Noted No Resolved Ambulatory Problems Past Medical History: Diagnosis Date Allergic Arthritis HISTORY PAST MEDICAL HISTORY SOCIAL HISTORY Past Medical History: Diagnosis Date Allergic Arthritis Social History Tobacco Use Smoking status: Never Smokeless tobacco: Never Substance Use Topics Alcohol use: Not on file Drug use: Not on file FAMILY HISTORY No family history on file. SURGICAL HISTORY Past Surgical History: Procedure Laterality Date CT ANGIOGRAM HEART CORONARY 11/28/2021 CT ANGIOGRAM TAVR 11/28/2021 HYSTERECTOMY 2009 REVIEW OF SYSTEMS Review of Systems: Review of Systems Constitutional: Negative. HENT: Negative. Eyes: Negative. Respiratory: Negative. Cardiovascular: Negative. Gastrointestinal: Negative. Genitourinary: Negative. Musculoskeletal: Negative. Skin: Negative. Neurological: Negative. All other systems reviewed and are negative. Hematological: Negative. Endocrine: Negative. Allergic/Immunologic: Negative. OBJECTIVE Objective: Physical Exam Constitutional: Appearance: Normal appearance. She is normal weight. HENT: Head: Normocephalic. Cardiovascular: Rate and Rhythm: Normal rate. Pulses: Normal pulses. Pulmonary: Effort: Pulmonary effort is normal. Breath sounds: Normal breath sounds. Abdominal: Palpations: Abdomen is soft. Musculoskeletal: General: Normal range of motion. Neurological: General: No focal deficit present. Mental Status: She is alert and oriented to person, place, and time. Psychiatric: Mood and Affect: Mood normal. Behavior: Behavior normal. Thought Content: Thought content normal. Judgment: Judgment normal. Vitals and nursing note reviewed. Vitals: Estimated body mass index is 40.09 kg/m as calculated from the following: Height as of 08/11/23: 5' 10 . Weight as of this encounter: 279 lb 6.4 oz. BP: 122/78 No LMP recorded. Patient has had a hysterectomy. ASSESSMENT & PLAN ICD-10-CM 1. Encounter for weight management Z76.89 phentermine (Adipex-P) 37.5 MG tablet 2. Follow-up exam Z09 Patient presents today for initial Adipex prescription. The importance of keeping a food journal, proper nutrition/diet, and exercise regimen while taking Adipex has been discussed. Patient verbalized understanding and signed consents to initiate (Adipex) medication therapy. Patient was given a printed prescription signed by provider to take to their local pharmacy. Follow Up: Patient is to return to the office in 1 month for further evaluation to assess patient progress. Weight and blood pressure will need to be captured in order for patient to receive 2nd prescription. Documented by KELVIN Blankenship on behalf of: KELVIN Blankenship documented in this encounterUniversity [id number] NotePROCEDURE: XR FOOT RT 2V HISTORY: Pain in right foot ; follow-up right fifth toe fracture COMPARISON: None. FINDINGS: BONES:Thin curvilinear lucency through the head of fifth proximal phalanx suspicious for nondisplaced fracture. SOFT TISSUES:No visible soft tissue swelling. EFFUSION:None visible. OTHER: Negative. IMPRESSION: 1. Suspect subacute nondisplaced fracture of fifth proximal phalanx. No prior studies for comparison. Electronically authenticated by: PATTI THOMPSON Date: 2022-01-29 17:23[facility]12-15-2022 NoteCONSULTATION CONSULTATION DATE: 01/23/2022 HISTORY OF PRESENT ILLNESS: [...] She does follow up with Orthopedics in [place]. Back in June of 2021, she did [...] to medically maintain her narcotics. Refill for [place] 5/325 two pills twice a day for pain. We will maintain baclofen 10 mg q.h.s. We will follow up with the patient in three months' time unless otherwise indicated. Patient agrees with this plan.[facility] [id number] Note CONSULTATION CONSULTATION DATE: 10/29/2021 CHIEF COMPLAINT: Severe left hip pain and left knee pain. HISTORY OF PRESENT ILLNESS: This is a very pleasant, 51-year-old female, who has severe osteoarthritis of the left hip. The patient is scheduled for seeing an orthopedic surgeon on November 06 at [facility] for a total hip replacement. 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 Activities aggravate the patient's pain. The patient reports pain as a 5/10. Currently, she takes Tylenol on a p.r.n. basis, [place] 5/325 four tablets a day, baclofen 10 [...] total hip replacement on November 06 at [facility]. As such, we will maintain for the patient to return post surgical.[facility] [id number] NoteCONSULTATION CONSULTATION DATE: 07/02/2021 CHIEF COMPLAINT: Left hip pain, left leg pain. HISTORY OF PRESENT ILLNESS: This is a 51-year-old female who is known to the Pain [facility]. The patient recently had a reconstructive surgery of her right leg at [facility]. The patient had bone grafts, [...] patient takes Advil on a p.r.n. basis, Inglewood 5/325 two tablets b.i.d. and baclofen 10 [...] to follow up with the surgeon at [facility] next week. We requested that the patient bring the x-ray images along with the surgeons report with regards to her left hip. In addition to this, we would look to get authorization of the left trochanteric burse. Should the bursa injection be needed. The patient understands and would like to proceed. CC: Maribell Alvarez M.D. [facility] Signed and Approved by: DR MO PELLETIER . 07/16/2021 11:41:00[facility]03-23-2022 NoteMR#: [id number] I [facility] Pt. Name: Keila Richardson Admitted: 04/10/2021 Discharged: [...] Chery MD Date Trans: 05/01/2021 01:43 P/stacy NGUYỄN_JOANNE:[id number] cc: Maribell Alvarez M.D. [facility] [employer] [address] [facility] [place] [address] Note CONSULTATION CHIEF COMPLAINT: Right leg pain [...] currently doing well. She is maintained on Inglewood 5/325 b.i.d. and Baclofen 10 mg which [...] The patient takes Aleve 800 mg b.i.d., Inglewood 5/325 b.i.d. two tablets, Baclofen 10 mg [...] tablet p.o., b.i.d. along with maintaining the Inglewood 5/325 1-2 tablets on a b.i. d. basis. The patient was educated as to mitigating and decreasing her narcotic levels so that postoperatively she would have a better recovery. Questions and answers were done. The patient will be followed up subsequent to the surgery. [facility] Signed and Approved by: DR MO PELLETIER . 04/02/2021 08:56:00[facility] [id number] Evaluation note* Encounter Date Diagnosis Assessment Notes Treatment Notes Treatment Clinical Notes Nov, Other fracture of lo wer end of right femur, subsequent encounter for closed fracture with nonunion (ICD-10 - S72.491K) Radiographs reviewed with patient as delayed healing/nonunion of the femur. Instructed on continueduse of the bone stimulator, as well as limited weight bearing. Advised patient based on her insurance, she will need to be referred to another facility that does take her insurance. Nov,Obesity, unspecified classification, unspecified obesity type, unspecified whether serious comorbidity present (ICD-10 - E66.9) Nov,Other specified postprocedural states (ICD-10 - Z98.890) Patient will have f/u xray at [facility] in 4 weeks. Nov,Other closed fracture of distal end of right femur with delayed healing, subsequent encounter (ICD-10 - S72.491G) Nov,Failed orthopedic implant, initial encounter (ICD-10 - T84.498A) Nov,Nicotine abuse (ICD-10 - Z72.0) [facility] Other 10-20-2021 Evaluation note* Encounter Date Diagnosis Assessment Notes Treatment Notes Treatment Clinical Notes Nov, Other type III open fracture of distal end of right femur with routine healing, subsequent encounter (ICD-10 - S72.491F) Nov,Other closed fracture of distal end of right femur with routine healing, subsequent encounter (ICD-10 - S72.491D) [facility] Other 10-08-2021 Evaluation note* Encounter Date Diagnosis Assessment Notes Treatment Notes Treatment Clinical Notes Nov, Other closed fractur e of distal end of right femur with delayed healing, subsequent encounter (ICD-10 - S72.491G) We will proceed with CT scan to assess for extent of fracture healing. Bone stimulator ordered. Refer patient to pain management Nov,Other fracture of lower end of right femur, subsequent encounter for closed fracture with nonunion (ICD-10 - S72.491K) Nov,Failed orthopedic implant, initial encounter (ICD-10 - T84.498A) Nov,Obesity, unspecified classification, unspecified obesity type, unspecified whether serious comorbidity present (ICD-10 - E66.9) Nov,Nicotine abuse (ICD-10 - Z72.0) Nov,Other specified postprocedural states (ICD-10 - Z98.890) [facility] [employer] Other Evaluation noteNo InformationNortACMH Hospital [facility] Other Evaluation noteNo assessment information available [facility] Work Phone: Evaluation note* Diagnosis Onset Date Resolution Status Contusion of shoulder, right acuteInternal derangement of right shoulderacutePain of right hipacuteRotator cuff tear, rightacute [facility] Work Phone: Evaluation note* Diagnosis Onset Date Resolution Status Contusion of shoulder, right acuteInternal derangement of right shoulderacutePain of right hipacuteRotator cuff tear, rightacuteContusion of shoulder, rightacuteInternal derangement of right shoulderacutePain of right hipacuteRotator cuff tear, rightacute [facility] Work Phone: Evaluation note* Diagnosis Onset Date Resolution Status Contusion of shoulder, right acuteInternal derangement of right shoulderacutePain of right hipacuteRotator cuff tear, rightacuteContusion of shoulder, rightacuteInternal derangement of right shoulderacutePain of right hipacuteRotator cuff tear, rightacuteTear of right infraspinatus tendonacuteTear of right supraspinatus tendonacute [facility] Work Phone: Evaluation note* Diagnosis Eczema of both hands- Primary Abnormal glucose tolerance test Impaired glucose tolerance test Benign essential hypertension (CMS/HCC) Essential hypertension, benign Annual physical exam Routine general medical examination at a health care facility Screening for lipid disorders Encounter for screening mammogram for malignant neoplasm of breast Screening for malignant neoplasm of colon Morbid (severe) obesity due to excess calories (E66.01) Body mass index [BMI] 40.0-44.9, adult (Z68.41) Encounter for weight management documented in this encounter [facility] HealthcareEvaluation note* Diagnosis Encounter for weight management Follow-up exam Unspecified follow-up examination documented in this encounter [facility] HealthcareEvaluation note* Diagnosis Lesion of breast- Primary Abnormal finding on breast imaging documented in this encounter [facility]* Diagnosis OAB (overactive bladder)- Primary Mixed stress and urge urinary incontinence Mixed incontinence urge and stress (male)(female) Postural urinary incontinence Cystocele with rectocele documented in this encounter [facility] SystemEvaluation [facility]* Diagnosis Eczema of both hands- Primary Abnormal glucose tolerance test Impaired glucose tolerance test Benign essential hypertension (CMS/HCC) Essential hypertension, benign Annual physical exam Routine general medical examination at a health care facility Screening for lipid disorders Encounter for screening mammogram for malignant neoplasm of breast Screening for malignant neoplasm of colon Morbid (severe) obesity due to excess calories (E66.01) Body mass index [BMI] 40.0-44.9, adult (Z68.41) Encounter for weight management documented in this encounter [facility] HealthcareEvaluation note* Diagnosis Pre-op testing- Primary Unspecified pre-operative examination documented in this encounter [facility]* Diagnosis OAB (overactive bladder)- Primary documented in this encounter [facility]* Diagnosis Mixed stress and urge urinary incontinence- Primary Mixed incontinence urge and stress (male)(female) Postural urinary incontinence Cystocele with rectocele OAB (overactive bladder) [facility] Diagnosis OAB (overactive bladder) [facility]* Diagnosis Encounter for screening mammogram for breast cancer- Primary documented in this encounter [facility]* Diagnosis Mixed stress and urge urinary incontinence- Primary Mixed incontinence urge and stress (male)(female) Postural urinary incontinence OAB (overactive bladder) Rectocele [facility]* Diagnosis Postoperative visit- Primary [facility]* Diagnosis Eczema of both hands- Primary Abnormal glucose tolerance test Impaired glucose tolerance test Benign essential hypertension Essential hypertension, benign Annual physical exam Routine general medical examination at a health care facility Screening for lipid disorders Encounter for screening mammogram for malignant neoplasm of breast Screening for malignant neoplasm of colon Morbid (severe) obesity due to excess calories (E66.01) Body mass index [BMI] 40.0-44.9, adult (Z68.41) Pre-operative clearance- Primary Unspecified pre-operative examination documented in this encounter [facility] HealthcareEvaluation note* Diagnosis Mixed stress and urge urinary incontinence- Primary Mixed incontinence urge and stress (male)(female) OAB (overactive bladder) Acute cystitis without hematuria documented in this encounter [facility] SystemHistory general Narrative - Reported* Type Description Date Medical History Arthritis Surgical HistoryBilateral total knee replacementSurgical HistoryHysterectomy Hospitalization HistorySee past surgical hx [facility] Other History general Narrative - Reported* Type Description Date Medical History Arthritis Surgical HistoryBilateral total knee replacementSurgical HistoryHysterectomy Surgical HistoryRight FemurHospitalization HistorySee past surgical hx [facility] Other Hospital Discharge instructions Additional Instructions As we discussed, there is no evidence of any fractures. Given your shoulder pain and inability to lift your shoulder away from your body, I am concerned about a rotator cuff tear. Sling is for comfort. Follow-up with the orthopedics doctor as we discussed. I did prescribe medication for pain. I will also prescribe a gentle laxative.[facility] Work Phone: InstructionsNot on filedocumented in this encounter [facility] System[facility]ructionsNot on filedocumented in this encounter [facility] System[facility]ructionsNot on filedocumented in this encounter [facility]Not on filedocumented in this encounter [facility]Not on filedocumented in this encounter [facility]ructionsNot on filedocumented in this encounter [facility]ructionsNot on filedocumented in this encounter [facility] SystemInstructionsNot on filedocumented in this encounter [facility]ructionsNot on filedocumented in this encounter [facility] SystemInstructionsNot on filedocumented in this encounter [facility] SystemInstructionsNot on filedocumented in this encounter [facility] SystemInstructionsNot on filedocumented in this encounter [facility] SystemInstructionsNot on filedocumented in this encounter [facility] SystemReason for referral (narrative)* Medication Prior Authorization - Pending ReviewSpecialtyDiagnoses / ProceduresReferred By ContactReferred To Contact Emily Oleary MD [address] [address] Phone: tel: fax: Referral IDStatusReasonStart DateExpiration DateVisits RequestedVisits [id number]/ [facility] Summary Purpose Family History No Family History Records Found Relationship Condition Age at Onset Recorded Date/T michelle Not Specified No pertinent family history Unknown fatherHeart diseaseUnknownDeceasedUnknownmotherHypertensionUnknown Advance Directives No Advanced Directives Records Found Advance Directive Response Recorded Date/ Time Advance Directives No July 28 3:32am Reason for Referral Reason Please Refer pat ient to pain management due to continued pain following surgery Diagnosis 1 Other closed fractur e of distal end of right femur with delayed healing, subsequent encounter (S72.161G) Referral Organization [facility] Referring Provider First Name Shaina Referring Provider Last Name Eileen Referring Provider Specialty Hand Surger y Referred Organization [facility] Referred Provider Mo Pelletier Referred Address [address] [place], [place],[address] Referred Provider Specialty Pain Medicin e Referral Priority Routine General Notes Hallie Wilkinson 11:26:16 AM >P2P Shu Glass 11/20/2020 04:43:43 PM > Patient called asking for a referral to [facility] pain management due to her insuranceHallie Wilkinson 11/22/2020 02:13:28 PM >[facility] does not have pain management, I called and spoke with patient and she asked for referral to be sent to [facility] since they take her insurance. Completed referral form for Dr Pelletier and informed patient that she will be contacted directly by his office to schedule appointment. Chief Complaint and Reason for Visit Chief Complaint Fall: rt shoulder in [facility] Chief Complaint Fall: rt shoulder in [facility] RT SHOULDER PAIN WXReason for VisitContusion of shoulder, right Internal derangement of right shoulder Pain of right hip Rotator cuff tear, right Chief Complaint Fall: rt shoulder in [facility] RT SHOULDER PAIN WX M24.811 - Other specific joint derangements of rig 1 WEEK WXReason for VisitContusion of shoulder, right Internal derangement of right shoulder Pain of right hip Rotator cuff tear, right Contusion of shoulder, right Internal derangement of right shoulder Pain of right hip Rotator cuff tear, right Chief Complaint Fall: rt shoulder in [facility] RT SHOULDER PAIN WX M24.811 1 WEEK WXReason for VisitContusion of shoulder, right Internal derangement of right shoulder Pain of right hip Rotator cuff tear, right Contusion of shoulder, right Internal derangement of right shoulder Pain of right hip Rotator cuff tear, right Chief Complaint Fall: rt shoulder in [facility] RT SHOULDER PAIN WX M24.811 1 WEEK WX S40.011AReason for VisitContusion of shoulder, right Internal derangement of right shoulder Pain of right hip Rotator cuff tear, right Contusion of shoulder, right Internal derangement of right shoulder Pain of right hip Rotator cuff tear, right Chief Complaint Fall: rt shoulder in [facility] RT SHOULDER PAIN WX M24.811 1 WEEK WX S40.011A MRI RESULTSReason for VisitContusion of shoulder, right Internal derangement of right shoulder Pain of right hip Rotator cuff tear, right Contusion of shoulder, right Internal derangement of right shoulder Pain of right hip Rotator cuff tear, right Tear of right infraspinatus tendon Tear of right supraspinatus tendon Chief Complaint Fall: rt shoulder in [facility] RT SHOULDER PAIN WX M24.811 1 WEEK WX S40.011A MRI RESULTS UnknownReason for VisitContusion of shoulder, right Internal derangement of right shoulder Pain of right hip Rotator cuff tear, right Contusion of shoulder, right Internal derangement of right shoulder Pain of right hip Rotator cuff tear, right Tear of right infraspinatus tendon Tear of right supraspinatus tendon Additional Source Comments INFORMATION SOURCE (unrecogn ized section and content) DATE CREATED AUTHOR 03/26/2021 [facility] Program Coordinator DATE CREATED AUTHOR AUTHOR'S ORGANIZ ATION 10/19/2021 [facility] DATE CREATED AUTHOR AUTHOR'S ORGANIZ ATION 02/05/2022 [facility] DATE CREATED AUTHOR AUTHOR'S ORGANIZ ATION 06/16/2023 [facility] DATE CREATED AUTHOR AUTHOR'S ORGANIZ ATION 11/19/2023 [facility] DATE CREATED AUTHOR AUTHOR'S ORGANIZ ATION 06/22/2024 [facility] DATE CREATED AUTHOR AUTHOR'S ORGANIZ ATION 08/05/2024 [facility] DATE CREATED AUTHOR AUTHOR'S ORGANIZ ATION 10/07/2024 [facility] DATE CREATED AUTHOR AUTHOR'S ORGANIZ ATION 11/26/2024 [facility] DATE CREATED AUTHOR AUTHOR'S ORGANIZ ATION 12/10/2024 [facility] DATE CREATED AUTHOR AUTHOR'S ORGANIZ ATION 12/14/2024 [facility] REASON FOR VISIT (unrecogniz ed section and content) ReasonCommentsWeight ManagementReasonCommentsNew PatientReasonCommentsFollow-up 8weekReasonCommentsVaginal ProlapseUrinary IncontinenceSpecialtyDiagnoses / ProceduresReferred By ContactReferred To ContactUrogynecology Diagnoses Urinary incontinence, unspecified type Jethro Trevino, [address] [place] [address] Phone: tel: fax: Emily Oleary MD [address], [address] [address] Phone: tel: fax: Referral IDStatusReasonStart DateExpiration DateVisits RequestedVisits [id number] ReasonCommentsPost-opReasonCommentssurgical clearanceReasonOnset DateCommentsFYI 12/08/2024 Care Teams (unrecognized sec tion and content) Team Status: Active Member Role Status Cheyanne Alvarez MD Primary Care Provider Active Team Status: Inactive Member Role Status Cheyanne Alvarez MD Primary Care Provider Active S tart: August 26, 2023 End: August 26dimitri Chao Jr, MDEmermercy hospital [facility] ProviderActiveStart: August 26, 2023 End: August 27, 2023 Team Status: Inactive Member Role Status Cheyanne Alvarez MD Primary Care Provider Active S tart: August 31, 2023 End: August 30Ese Mirandaending ProviderActiveStart: August 31, 2023 End: August 31, 2023 Team Status: Active Member Role Status Cheyanne Johnson MD Attending Provider Active Star t: September 08, 2023 Jac Fonseca Care ProviderActiveStart: September 08, 2023 Team Status: Inactive Member Role Status Cheyanne Alvarez MD Primary Care Provider Active S tart: September 08, 2023 End: September 07omas Ese Johnsonending ProviderActiveStart: September 08, 2023 End: September 08, 2023 Team Status: Inactive Member Role Status Cheyanne Johnson MD Attending Provider Active Star t: September 08, 2023 End: September 07Jac Willingham Care ProviderActiveStart: September 08, 2023 End: September 08, 2023 Team Status: Inactive Member Role Status Cheyanne Alvarez MD Primary Care Provider Active S tart: October 06, 2023 End: October 05omas Ese Johnsonending ProviderActiveStart: October 06, 2023 End: October 06, 2023 Team Status: Inactive Member Role Status Dates Maribell Alvarez MD Primary Care Provider Active S tart: October 08, 2023 End: October 08, 2023Thomas Olexa , MDAttending ProviderActiveStart: October 08, 2023 End: October 08, 2023 Team Status: Inactive Member Role Status Dates Leah Berger PA-C Attending Provider Active Sta rt: November 12, 2023 End: November 12, 2023Team MemberRelationshipSpecialtyStart DateEnd Date Maribell Alvarez MD [address] [place] [address] PCP - [facility] Medicine09/28/23Team MemberRelationshipSpecialtyStart DateEnd Date Maribell Alvarez MD [address] [facility] [address] [place] [address] PCP - [facility]09/28/23Team MemberRelationshipSpecialtyStart DateEnd Date Maribell Alvarez MD [address] [place] [address] PCP - [facility]09/28/23Team MemberRelationshipSpecialtyStart DateEnd Date Maribell Alvarez MD [address] [facility] [address] [place] [address] [facility]/28/23Team MemberRelationshipSpecialtyStart DateEnd Date [place] [address] [place] [address] [facility]CP - [facility]10/29/23Team MemberRelationshipSpecialtyStart DateEnd Date [place] [address] PCP - GeneralFamily Medicine10/29/23Team MemberRelationshipSpecialtyStart DateEnd Date Maribell Alvarez MD [address] [place] [address] [place] [address] PCP - GeneralFamily Medicine09/28/23Team MemberRelationshipSpecialtyStart DateEnd [place] [address] [place] [address] PCP - GeneralFamily Medicine10/29/23Team MemberRelationshipSpecialtyStart DateEnd Date [place] [address] [place] [address] PCP - GeneralFamily Medicine10/29/23Team MemberRelationshipSpecialtyStart DateEnd Date [place] [address] [place] [address] PCP - GeneralFamily Medicine10/29/23Team MemberRelationshipSpecialtyStart DateEnd Date [place] [address] [place] [address] PCP - GeneralFamily Medicine10/29/23Team MemberRelationshipSpecialtyStart DateEnd Date [place] [address] [place] [address] PCP - GeneralFamily Medicine10/29/23Team MemberRelationshipSpecialtyStart DateEnd Date [place] [address] [place] [address] PCP - GeneralFamily Medicine10/29/23Team MemberRelationshipSpecialtyStart DateEnd Date [place] [address] [place] [address] PCP - GeneralFamily Medicine10/29/23Team MemberRelationshipSpecialtyStart DateEnd Date [place] [address] [place] [address] PCP - GeneralFamily Medicine10/29/23Team MemberRelationshipSpecialtyStart DateEnd Date [place] [address] [place] [address] PCP - Generalmily Medicine10/29/23Team MemberRelationshipSpecialtyStart DateEnd Date Maribell Alvarez MD [address] [place] [address] PCP - Generalmily Medicine09/28/23Team MemberRelationshipSpecialtyStart DateEnd Date Maribell Alvarez MD [address] [place] [address] PCP - Generalmily Medicine09/28/23Team MemberRelationshipSpecialtyStart DateEnd Date Maribell Alvarez MD [address] [place] [address] PCP - Generalmily Medicine09/28/23Team MemberRelationshipSpecialtyStart DateEnd Date Maribell Alvarez MD [address] [place] [address] PCP - GeneralFamily Medicine09/28/23Team MemberRelationshipSpecialtyStart DateEnd Date Marib[place] [address] PCP - GeneralFamily Medicine10/29/23 Goals (unrecognized section and content) Goals may [...] BE BASED ON THE PRIMARY CLINICAL RECORDS. [facility] [employer] [facility]. provides no warranty or guarantee of the accuracy or completeness of information in this document.
--- NOTE | 2024-12-14 14:34 | XR_ITS ---
The [place] [id number] Patient Name: CHASITY STEVENSON MRN: [id number] date: 1970 Sex: F Assigned Patient Location: [facility] Current Patient Location: Accession/Order Number: [id number] Exam Date: 12/14/2024 14:31 Report Date: 12/15/2024 08:55 At the request of: LEO AVINA MD Procedure: XR shoulder RT min 2V RIGHT SHOULDER - 2 views CLINICAL HISTORY: Follow-up Right Shoulder Replacement COMPARISON: None AP and Y views were obtained. There is osteopenia. A shoulder prosthesis is present. As visualized hardware appears intact and in appropriate position. There is no acute fracture or dislocation. There are no significant soft tissue abnormalities. XR/XR shoulder RT min 2V IMPRESSION: SATISFACTORY APPEARANCE OF SHOULDER PROSTHESIS Impression dictated by: Mallory Silva M.D. 12/15/2024 8:55 AM Dictation Location: [place] [address] Electronically authenticated by: [id number] Y Date: 12/15/2024 08:55
== END 2024-12-14 14:23 | disposition home or self-care (01) ==
LOC: RAD 14:22
PROVIDERS: PCP Physician Assistant; Visit Provider Orthopaedic Surgery Adult Reconstructive Orthopaedic Surgery
DX: M85.88 Other specified disorders of bone density and structure, other site (principal); Z96.611 Presence of right artificial shoulder joint; Z98.890 Other specified postprocedural states
CPT/HCPCS: 73030